=== PATIENT | female | born 1935 | race Caucasian/White ===

== ENCOUNTER 2016-07-18 20:50 | Emergency (ER) | payer OTHER ==
[2016-07-18 21:20] VITALS: BP 145/84; PULSE 76; TEMP 97.8; BMI 18.7
--- NOTE | 2016-07-18 22:16 | PDOC ---
History of Present Illness - General Chief Complaint: Cold Symptoms Stated Complaint: CHEST PAIN Time Seen by Provider: 07/18/16 21:55 History Source: Patient Exam Limitations: No Limitations - History of Present Illness Initial Comments: CHIEF COMPLAINT: 80 y/o afebrile female with PMH HTN, HLD, ACS, COPD c/o congested sounding cough x 4 days. HISTORY OF PRESENT ILLNESS: The patient states she has post tussive chest discomfort which subsides after coughing spell. She states it's mostly a dry cough. She denies f/c, n/v/d, abd pain, back pain, hematuria, dysuria. She states she is always SOB at baseline because of COPD. Vital signs on arrival are notable for O2 sat of 91% on RA. REVIEW OF SYSTEMS: GENERAL/CONSTITUTIONAL: No fever/chills. No weakness. No weight change. HEAD, EYES, EARS, NOSE AND THROAT: No change in vision. No ear pain or discharge. No sore throat. CARDIOVASCULAR: +posttussive chest pain. No shortness of breath. RESPIRATORY: +congested cough. No wheezing, or hemoptysis. GASTROINTESTINAL: See history of present illness. GENITOURINARY: No dysuria, frequency, or change in urination. MUSCULOSKELETAL: No joint or muscle swelling or pain. No neck or back pain. SKIN: No rash or easy bruising. NEUROLOGIC: No headache, vertigo, loss of consciousness, or loss of sensation. PHYSICAL EXAM: GENERAL: The patient is awake, alert, and fully oriented, in no acute distress. She has an intermittent congested sounding cough. HEAD: Normal with no signs of trauma. ENT: Pupils equal, round and reactive to light, extraocular movements intact, sclera anicteric, conjunctiva clear. Neck supple. LUNGS: Clear to auscultation bilaterally. Normal excursion. No respiratory distress or use of accessory muscles. CV: RRR, S1/S2, no MRG. Cap refill < 2 sec. ABDOMEN: Soft, non-distended, non-tender even to deep palpation, no hepatomegaly or splenomegaly, no masses. EXTREMITIES: Normal range of motion, no edema. NEUROLOGICAL: Normal speech, normal gait. CN II-XII grossly intact. PSYCH: Normal mood, normal affect. SKIN: Warm, dry, normal turgor, no rashes or lesions noted. Past History - Past Medical History Allergies/Adverse Reactions: Allergies Allergy/AdvReac Type Severity Reaction Status Date / Time No Known Allergies Allergy Verified 07/18/16 21:16 Home Medications: Ambulatory Orders Aspirin [ASA -] 81 mg PO DAILY 07/18/16 Clopidogrel Bisulfate [Plavix -] 75 mg PO DAILY 07/18/16 Metoprolol Tartrate 25 mg PO BID 07/18/16 Rosuvastatin Calcium [Crestor] 20 mg PO DAILY 07/18/16 COPD: Yes HTN: Yes Hypercholesterolemia: Yes - Surgical History Cardiac Surgery: Yes (2 stents) - Psycho/Social/Smoking Cessation Hx Suicidal Ideation: No Smoking History: Former smoker Have you smoked in the past 12 months: No Information on smoking cessation initiated: No *Physical Exam - Vital Signs Last Vital Signs Temp Pulse Resp BP Pulse Ox 97.8 F 76 18 145/84 91 L 07/18/16 21:17 07/18/16 21:17 07/18/16 21:17 07/18/16 21:17 07/18/16 21:17 Heart Score/ECG Review - ECG Intrepretation Comment:: Twelve-lead EKG was performed and reviewed by me. There is normal sinus rhythm with a normal rate. The axis is normal. The intervals are normal. Flipped inferior T's Impression: Abnormal twelve-lead EKG ED Treatment Course - LABORATORY CBC & Chemistry Diagram: 07/18/16 23:51 07/18/16 23:51 Medical Decision Making - Medical Decision Making A/P: 80 y/o afebrile female with congested cough x [address] Stein had just ordered a chest CT as an outpatient. Plan is as follows: 1. Labs 2. EKG 3. Chest CT Chest CT Impression: Moderately severe centrilobular emphysema with scarring noted in the right apex and right upper lobe. Labs unremarkable. Informed the patient of her results. She states she feels good and wants to go home. Instructed her to f/u with Dr. Stein and return to the ER with any worsening or concerning symptoms The patient verbalizes understanding of all instructions, has no further questions and is awaiting discharge. *DC/Admit/Observation/Transfer Diagnosis at time of Disposition: Cough - Discharge Dispostion Disposition: HOME Condition at time of disposition: Good - Referrals Referrals: Mary Beth Stein [Primary Care Provider] - Call tomorrow - Patient Instructions Printed Discharge Instructions: DI for Cough -- Adult Additional Instructions: Discharge Instructions: -All of your labs and Cat Scan of your chest were normal. -Take your inhalers as prescribed by Dr. Stein -Return to the ER with any worsening or concerning symptoms
[2016-07-19 00:05] LABS: BASOPHIL 0.4 % (0-2.0); EOSINOPHIL 0.1 % (0-4.5); MCH 29.7 pg (25.7-33.7); MCHC 33.1 g/dl (32.0-36.0); MEAN CELL VOLUME 89.7 fl (80-96); MEAN PLT VOLUME 11.7 fl (7.5-11.1); NEUTROPHILS 90.7 % (42.8-82.8); PLATELET COUNT 120 K/MM3 (134-434); RDW 14.8 % (11.6-15.6); WHITE BLOOD COUNT 5.5 K/mm3 (4.0-10.0)
[2016-07-19 00:35] LABS: ALBUMIN 4.3 g/dl (3.4-5.0); ANION GAP 11 (8-16); BILIRUBIN,TOTAL 0.6 mg/dL (0.2-1.0); CALCIUM 9.2 mg/dL (8.5-10.1); CO2 29 mmol/L (21-32); CREATININE 0.9 mg/dL (0.55-1.02); GLUCOSE,RANDOM 106 mg/dL (74-106); SGOT/AST 40 U/L (15-37); SGPT/ALT 27 U/L (12-78); TOT PROT 7.5 g/dl (6.4-8.2)
[2016-07-19 00:37] LABS: ALK PHOS 76 U/L (45-117); TROPONIN I < 0.02 ng/ml (0.00-0.05)
--- NOTE | 2016-07-20 17:00 | EKG ---
Test Reason : Blood Pressure : / mmHG Vent. Rate : 078 BPM Atrial Rate : 078 BPM P-R Int : 110 ms QRS Dur : 088 ms QT Int : 386 ms P-R-T Axes : 084 068 -23 degrees QTc Int : 440 ms POOR DATA QUALITY, INTERPRETATION MAY BE ADVERSELY AFFECTED SINUS RHYTHM WITH SHORT CO ABNORMAL ECG WHEN COMPARED WITH ECG OF 25-OCT-2006 12:49, ST NOW DEPRESSED IN INFERIOR LEADS ST LESS DEPRESSED IN LATERAL LEADS T WAVE INVERSION NOW EVIDENT IN INFERIOR LEADS T WAVE INVERSION NO LONGER EVIDENT IN LATERAL LEADS Confirmed by HERNANDEZ EASLEY MD ([id number]) on 07/20/2016 5:00:30 PM Referred By: Confirmed By:HERNANDEZ EASLEY MD
== END 2016-07-19 01:23 | disposition home or self-care (01) ==
LOC: JER 20:50
DX: R05 Cough (principal); I10 Essential (primary) hypertension; E78.5 Hyperlipidemia, unspecified; J44.9 Chronic obstructive pulmonary disease, unspecified; Z95.5 Presence of coronary angioplasty implant and graft; Z87.891 Personal history of nicotine dependence; Z79.82 Long term (current) use of aspirin
CPT/HCPCS: 36415; 71250-TC; 80053; 82550; 84484; 85025; 93005; 93010; 99281-25

== ENCOUNTER 2018-04-14 16:41 | Emergency (ER) | payer OTHER ==
[2018-04-14 16:54] VITALS: BP 140/83; PULSE 74; TEMP 97.5; BMI 16.7
--- NOTE | 2018-04-14 18:01 | PDOC ---
History of Present Illness - General Chief Complaint: Injury Stated Complaint: RIGHT HAND INJURY Time Seen by Provider: 04/14/18 17:18 - History of Present Illness Initial Comments: 04/14/18 18:01 CHIEF COMPLAINT: hand injury HISTORY OF PRESENT ILLNESS: 82 yo F with hx of PMH HTN, HLD, ACS, COPD presents to fast track with injury to R hand. Patient and grandson report that she was "getting out of an [employer] and accidentally banged the back of her hand against the car, and we didn't even realize she had a big bruise until we got to my Mom' s place and she asked what happened." Patient denies any current pain but reports that she is on Plavix and aspirin. No recent travel or sick contacts. PAST MEDICAL HISTORY: as per HPI FAMILY HISTORY: Denies SOCIAL HISTORY: Denies tobacco, alcohol, illicit drug use. SURGICAL HISTORY: Denies ALLERGIES: No known drug allergies REVIEW OF SYSTEMS General/Constitutional: Denies fever or chills. Denies weakness, weight change. HEENT: Denies change in vision. Denies ear pain or discharge. Denies sore throat. Cardiovascular: Denies chest pain or shortness of breath. Respiratory: Denies cough, wheezing, or hemoptysis. Gastrointestinal: Denies nausea, vomiting, diarrhea or constipation. Denies rectal bleeding. Genitourinary: Denies dysuria, frequency, or change in urination. Musculoskeletal: Denies joint or muscle swelling or pain. Denies neck or back pain. Skin and breasts: Bruise to R hand. Denies rash or easy bruising. Neurologic: Denies headache, vertigo, loss of consciousness, or loss of sensation. PHYSICAL EXAM General Appearance: Well-appearing, appropriately dressed. No apparent distress , no intoxication. HEENT: EOMI, PERRLA, normal ENT inspection, normal voice, TMs normal, pharynx normal. No conjunctival pallor. No photophobia, scleral icterus. Respiratory/Chest: Lungs CTAB. No shortness of breath, chest tenderness, respiratory distress, accessory muscle use. No crackles, rales, rhonchi, stridor , wheezing, dullness Cardiovascular: RRR. S1, S2. No JVD, murmur, bradycardia, tachycardia. Vascular Pulses: Dorsalis-Pedis (R): 2+, Dorsalis-Pedis (L): 2+ Gastrointestinal/Abdominal: Normal bowel sounds. Abdomen soft, non-distended. No tenderness or rebound tenderness. No organomegaly, pulsatile mass, guarding , hernia, hepatomegaly, splenomegaly. Musculoskeletal/Extremities: Normal inspection. FROM of all extremities, normal capillary refill. Pelvis Stable. No CVA tenderness. No tenderness to extremities, pedal edema, swelling, erythema or deformity. Integumentary: 3cm x 3 cm hematoma to dorsal aspect of R hand, no bleeding, no TTP, full ROM. Appropriate color, dry, warm. No cyanosis, erythema, jaundice or rash Neurologic: assistant signal maintainer II-XII intact. Fully oriented, alert. Appropriate mood/affect. Motor strength 5/5. No appreciable EOM palsy, facial droop or sensory deficit. 04/14/18 19:41 Past History - Past Medical History Allergies/Adverse Reactions: Allergies Allergy/AdvReac Type Severity Reaction Status Date / Time No Known Allergies Allergy Verified 04/14/18 16:54 Home Medications: Ambulatory Orders Aspirin [ASA -] 81 mg PO DAILY 07/18/16 Clopidogrel Bisulfate [Plavix -] 75 mg PO DAILY 07/18/16 Metoprolol Tartrate 25 mg PO BID 07/18/16 Rosuvastatin Calcium [Crestor] 20 mg PO DAILY 07/18/16 Cardiac Disorders: Yes (mi x 2) COPD: Yes HTN: Yes Hypercholesterolemia: Yes - Surgical History Cardiac Surgery: Yes (2 stents) - Suicide/Smoking/Psychosocial Hx Smoking History: Former smoker Have you smoked in the past 12 months: No Information on smoking cessation initiated: No *Physical Exam - Vital Signs Last Vital Signs Temp Pulse Resp BP Pulse Ox 97.5 F L 74 18 140/83 99 04/14/18 16:49 04/14/18 16:49 04/14/18 16:49 04/14/18 16:49 04/14/18 16:49 ED Treatment Course - RADIOLOGY Radiology Studies Ordered: Category Date Time Status HAND- RIGHT [RAD] Stat Radiology 04/14/18 17:39 Taken Medical Decision Making - Medical Decision Making 04/14/18 18:04 82 yo F with hx of PMH HTN, HLD, ACS, COPD presents to fast track with injury to R hand. -hand x-ray *DC/Admit/Observation/Transfer Diagnosis at time of Disposition: Hematoma - Discharge Dispostion Disposition: HOME Condition at time of disposition: Stable Decision to Admit order: No - Referrals Referrals: Mary Beth Stein [Primary Care Provider] - - Patient Instructions Printed Discharge Instructions: DI for Hematoma (Bruise) Additional Instructions: Please monitor the area of injury for the next 24 hours. If the hematoma gets larger or develops any redness, warmth, or pain, please return to the ER. Otherwise follow up with Dr. Stein within the next week for continued monitoring. - Post Discharge Activity
--- NOTE | 2018-04-15 13:23 | PDOC ---
Patient Follow-up (Call Back) - Post ED Follow - Up Condition at time of discharge: Stable Disposition at time of original discharge: HOME Reason for Call Back: Radiology (dist radius fracture , most likely old , if tender then may be acutely fractured) - Disposition Additional Instructions/Notes: called patient, no answer.
== END 2018-04-14 18:54 | disposition home or self-care (01) ==
LOC: JERFT 16:41
DX: S60.221A Contusion of right hand, initial encounter (principal); V48.4XXA Person boarding or alighting a car injured in noncollision transport accident, initial encounter; Y92.488 Other paved roadways as the place of occurrence of the external cause; Y93.89 Activity, other specified; Y99.8 Other external cause status
CPT/HCPCS: 73130-TC-RT-FY; 99281-25

== ENCOUNTER 2018-04-19 14:07 | Inpatient (IN) | payer OTHER ==
--- NOTE | 2018-04-19 14:26 | PDOC ---
Rapid Medical Evaluation Chief Complaint: Shortness of Breath Time Seen by Provider: 04/19/18 14:13 Medical Evaluation: Allergies Allergy/AdvReac Type Severity Reaction Status Date / Time No Known Allergies Allergy Verified 04/19/18 14:12 Vital Signs Temp Pulse Resp BP Pulse Ox 97.2 F L 83 28 H 204/79 H 95 04/19/18 14:12 04/19/18 14:12 04/19/18 14:12 04/19/18 14:12 04/19/18 14:12 04/19/18 14:23 I have performed a brief in-person evaluation of this patient. The patient presents with a chief complaint of: Patient sent in by PCP for possible admission due to failed outpatient treatment for suspected pneumonia with symptoms of persistent cough, SOB and low O2 sat Pertinent physical exam findings: lungs CTA b/l. mild decreased breathe sound I have ordered the following: CXR, CBC/CMP/ EKG The patient will proceed to the ED for further evaluation. Discharge Disposition - Diagnosis Cough - Referrals - Patient Instructions - Post Discharge Activity
[2018-04-19] MEDS ORDERED: ALBUTEROL SO4 2.5/IPRATROPIUM 0.5 INH SOL 3 ML VIAL.NEB. NEB ONE ×3 (16:19→17:29)
[2018-04-19] MEDS ORDERED: methylPREDNISolone NA SUCC 125 MG/2 ML VIAL IVPB ONE (16:19)
[2018-04-19] MEDS ORDERED: MAGNESIUM SULF 50% (8.12 MEQ/2 ML-1 GM VIAL) IVPB ONE (16:19)
--- NOTE | 2018-04-19 16:23 | PDOC ---
History of Present Illness - History of Present Illness Initial Comments: 04/19/18 16:28 The patient is a 82 year old female, accompanied by son, with a significant PMH of hypertension, hyperlipidemia, ACS s/p myocardial infarction x 2, COPD, who presents to the emergency department with 1.5 weeks of worsening shortness of breath and productive cough with yellow-clear sputum. The patient states that 3 weeks ago she was started on Z-Farhad antibiotics for cold-like symptoms by Dr. Mary Beth Stein. The patient reports initial relief of her symptoms. However, she states since finishing the antibiotics she has had worsening shortness of breath on exertion and has a persistent productive cough with yellow/clear sputum. The patient states she has used inhalers at home for the shortness of breath with mild relief. The patient states she received her flu shot earlier today. The patient denies chest pain, headache and dizziness. Denies fever, chills, nausea, vomit, diarrhea and constipation. Denies dysuria, frequency, urgency and hematuria. Allergies: NKA Social history: Former smoker PCP: Dr Mary Beth Stein <Adin Mata - Last Filed: 04/19/18 16:36> - General History Source: Patient, Family Exam Limitations: No Limitations <Figueroa Spivey - Last Filed: 04/19/18 17:49> - General Chief Complaint: Shortness of Breath Stated Complaint: SOB (PCP SENT) Time Seen by Provider: 04/19/18 14:13 Past History <Adin Mata - Last Filed: 04/19/18 16:36> - Past Medical History Cardiac Disorders: Yes (mi x 2) COPD: Yes HTN: Yes Hypercholesterolemia: Yes - Surgical History Cardiac Surgery: Yes (2 stents) - Immunization History Immunization Up to Date: Yes - Suicide/Smoking/Psychosocial Hx Smoking History: Former smoker Have you smoked in the past 12 months: No If you are a former smoker, when did you quit?: 11 years ago Information on smoking cessation initiated: No Hx Alcohol Use: No Drug/Substance Use Hx: No <Figueroa Spivey - Last Filed: 04/19/18 17:49> - Past Medical History Allergies/Adverse Reactions: Allergies Allergy/AdvReac Type Severity Reaction Status Date / Time No Known Allergies Allergy Verified 04/19/18 14:12 Home Medications: Ambulatory Orders Aspirin [ASA -] 81 mg PO DAILY 07/18/16 Clopidogrel Bisulfate [Plavix -] 75 mg PO DAILY 07/18/16 Metoprolol Tartrate 25 mg PO BID 07/18/16 Rosuvastatin Calcium [Crestor] 20 mg PO DAILY 07/18/16 Review of Systems - Review of Systems Comments:: 04/19/18 16:28 GENERAL/CONSTITUTIONAL: No fever or chills. No weakness. HEAD, EYES, EARS, NOSE AND THROAT: No change in vision. No ear pain or discharge. No sore throat. CARDIOVASCULAR: (+) Shortness of breath. No chest pain. RESPIRATORY: (+) Productive cough with yellow-clear sputum. No wheezing, or hemoptysis. GASTROINTESTINAL: No nausea, vomiting, diarrhea or constipation. GENITOURINARY: No dysuria, frequency, or change in urination. MUSCULOSKELETAL: No joint or muscle swelling or pain. No neck or back pain. SKIN: No rash NEUROLOGIC: No headache, vertigo, loss of consciousness, or change in strength/ sensation. ENDOCRINE: No increased thirst. No abnormal weight change. HEMATOLOGIC/LYMPHATIC: No anemia, easy bleeding, or history of blood clots. ALLERGIC/IMMUNOLOGIC: No hives or skin allergy. <Adin Mata - Last Filed: 04/19/18 16:36> *Physical Exam - Vital Signs Last Vital Signs Temp Pulse Resp BP Pulse Ox 97.2 F L 83 28 H 204/79 H 95 04/19/18 14:12 04/19/18 14:12 04/19/18 14:12 04/19/18 14:12 04/19/18 14:12 - Physical Exam Comments: 04/19/18 16:29 GENERAL: Awake, alert, and fully oriented, in no acute distress HEAD: No signs of trauma EYES: PERRLA, EOMI, sclera anicteric, conjunctiva clear ENT: Auricles normal inspection, hearing grossly normal, nares patent, oropharynx clear without exudates. Moist mucosa NECK: Normal ROM, supple, no lymphadenopathy, JVD, or masses LUNGS: (+) Tight breath sounds bilaterally. HEART: Regular rate and rhythm, normal S1 and S2, no murmurs, rubs or gallops ABDOMEN: Soft, nontender, normoactive bowel sounds. No guarding, no rebound. No masses EXTREMITIES: Normal range of motion, no edema. No clubbing or cyanosis. No cords, erythema, or tenderness NEUROLOGICAL: Cranial nerves II through XII intact. Normal speech. SKIN: Warm, Dry, normal turgor, no rashes or lesions noted. <Adin Mata - Last Filed: 04/19/18 16:36> - Vital Signs Last Vital Signs Temp Pulse Resp BP Pulse Ox 97.2 F L 83 28 H 204/79 H 95 04/19/18 14:12 04/19/18 14:12 04/19/18 14:12 04/19/18 14:12 04/19/18 14:12 <Figueroa Spivey - Last Filed: 04/19/18 17:49> Heart Score/ECG Review #1 ECG reviewed & interpreted by me at: 17:00 04/19/18 17:10 NSR 83, TWI III, aVF, no std/dustin, T wave flat V6, QTC 444 msec <Figueroa Spivey - Last Filed: 04/19/18 17:49> ED Treatment Course - LABORATORY CBC & Chemistry Diagram: 04/19/18 16:35 04/19/18 14:17 - RADIOLOGY Radiology Studies Ordered: Category Date Time Status CHEST X-RAY PORTABLE* [RAD] Stat Radiology 04/19/18 16:18 Ordered <Figueroa Spivey - Last Filed: 04/19/18 17:49> Medical Decision Making - Medical Decision Making 04/19/18 16:20 A portion of this note was written by my scribe, under my supervision. Vital Signs Temp Pulse Resp BP Pulse Ox 97.2 F L 83 28 H 204/79 H 95 04/19/18 14:12 04/19/18 14:12 04/19/18 14:12 04/19/18 14:12 04/19/18 14:12 82 yo F c/ hx of HTN, HLD, ACD s/p 2 MIs, COPD, former smoker sent in by Dr. Mary Beth Stein for COPD exacerbation. Endorses 3 weeks of cough. Had taken an azithromycin pack 1.5 wks ago with some improvement. However, still with clearish productive cough. No fevers, or chills. Does endorse GAY and chest tightness on exertion. Saw Dr. Stein who sent pt to ED. On a side note, pt had an upper extremity xray recently with questionable fracture. However, the patient spoke to Dr. Stein about it today and she is aware of it. Reports that this is an old fracture. Pt likely with COPD exacerbation. Chest xray to r/o PNA. Labs including cultures. Duonebs, steroids, IV magnesium. Low threshold for antibiotics. Admit. 04/19/18 17:48 CBC, BMP 04/19/18 16:35 04/19/18 14:17 CMP Sodium 141 mmol/L (136-145) 04/19/18 14:17 Potassium 4.1 mmol/L (3.5-5.1) 04/19/18 14:17 Chloride 107 mmol/L (98-107) 04/19/18 14:17 Carbon Dioxide 28 mmol/L (21-32) 04/19/18 14:17 Anion Gap 6 MMOL/L (8-16) L 04/19/18 14:17 BUN 14 mg/dL (7-18) 04/19/18 14:17 Creatinine 0.7 mg/dL (0.55-1.3) 04/19/18 14:17 Creat Clearance w eGFR > 60 (>60) 04/19/18 14:17 Random Glucose 82 mg/dL (74-106) 04/19/18 14:17 Lactic Acid 1.2 mmol/L (0.4-2.0) 04/19/18 16:35 Calcium 9.6 mg/dL (8.5-10.1) 04/19/18 14:17 Magnesium 2.3 mg/dL (1.8-2.4) 04/19/18 16:35 Total Bilirubin 0.9 mg/dL (0.2-1) 04/19/18 14:17 AST 16 U/L (15-37) 04/19/18 14:17 ALT 21 U/L (13-61) 04/19/18 14:17 Alkaline Phosphatase 76 U/L (45-117) 04/19/18 14:17 Creatine Kinase 58 IU/L (26-192) 04/19/18 16:35 Troponin I < 0.02 ng/ml (0.00-0.05) 04/19/18 16:35 B-Natriuretic Peptide 2485.7 pg/ml (5-450) H 04/19/18 14:17 Total Protein 7.2 g/dl (6.4-8.2) 04/19/18 14:17 Albumin 4.0 g/dl (3.4-5.0) 04/19/18 14:17 Chest xray reviewed, pending official radiology read. No infiltrates on pleural effusions. Case discussed with Dr. Mary Beth Stein. Admit to tele admission. She requests baljinder and priyanka for consultation. 04/19/18 17:49 <Figueroa Spivey - Last Filed: 04/19/18 17:49> *DC/Admit/Observation/Transfer - Attestations Scribe Attestion: 04/19/18 16:35 Documentation prepared by Adin Mata, acting as medical library assistant for Figueroa Spivey MD. <Adin Mata - Last Filed: 04/19/18 16:36> - Discharge Dispostion Decision to Admit order: Yes <Figueroa Spivey - Last Filed: 04/19/18 17:49> Diagnosis at time of Disposition: Cough COPD (chronic obstructive pulmonary disease) Qualifiers: COPD type: unspecified COPD Qualified Code(s): J44.9 - Chronic obstructive pulmonary disease, unspecified - Discharge Dispostion Condition at time of disposition: Stable - Referrals Referrals: Mary Beth Stein [Primary Care Provider] - - Patient Instructions - Post Discharge Activity
[2018-04-19 16:53] LABS: BASO % 0.2 % (0-2.0); EOS % 0.2 % (0-4.5); HEMATOCRIT 42.2 % (32.4-45.2); HEMOGLOBIN 13.4 GM/dL (10.7-15.3); LYMPH % 2.1 % (8-40); MCHC 31.8 g/dl (32.0-36.0); MEAN CELL VOLUME 91.3 fl (80-96); MEAN PLT VOLUME 10.9 fl (7.5-11.1); MONO % 3.8 % (3.8-10.2); NEUT % 93.7 % (42.8-82.8); PLATELET COUNT 116 K/MM3 (134-434); RBC 4.62 M/mm3 (3.60-5.2); RDW 15.9 % (11.6-15.6); WHITE BLOOD COUNT 12.1 K/mm3 (4.0-10.0)
[2018-04-19 16:57] LABS: VENOUS PC02 47.6 mmHg (38-52); VENOUS PH 7.38 (7.32-7.42)
[2018-04-19 17:11] LABS: INR 1.03 (0.83-1.09); PROTHROMBIN TIME (PATIENT) 12.2 SEC (9.7-13.0)
[2018-04-19] MEDS ORDERED: methylPREDNISolone NA SUCC 125 MG/2 ML VIAL ONE (17:11)
[2018-04-19] MEDS ORDERED: MAGNESIUM 1GM/D5W - 2 GM/200 ML IVPB IVPB ONE (17:11)
[2018-04-19 17:13] LABS: ACTIVATED PTT 27.5 SECONDS (25.2-36.5)
[2018-04-19 17:22] LABS: MAGNESIUM 2.3 mg/dL (1.8-2.4)
[2018-04-19 17:34] LABS: ALK PHOS 76 U/L (45-117); ANION GAP 6 MMOL/L (8-16); BILIRUBIN,TOTAL 0.9 mg/dL (0.2-1); BLOOD UREA NITROGEN 14 mg/dL (7-18); CALCIUM 9.6 mg/dL (8.5-10.1); CHLORIDE 107 mmol/L (98-107); CO2 28 mmol/L (21-32); CREATININE 0.7 mg/dL (0.55-1.3); GLUCOSE,RANDOM 82 mg/dL (74-106); N-TERMINAL BNP 2485.7 pg/ml (5-450); POTASSIUM 4.1 mmol/L (3.5-5.1); SGOT/AST 16 U/L (15-37); SGPT/ALT 21 U/L (13-61); SODIUM 141 mmol/L (136-145); TOT PROT 7.2 g/dl (6.4-8.2)
[2018-04-19 18:45] LABS: URINE APPEARANCE CLEAR; URINE BILIRUBIN NEGATIVE (<2.0 mg/dL); URINE COLOR LTYELLOW; URINE GLUCOSE (UA) NEGATIVE (NEGATIVE); URINE KETONE TRACE (NEGATIVE); URINE LEUK ESTERASE TRACE (NEGATIVE); URINE NITRITE NEGATIVE (NEGATIVE); URINE PROTEIN 1+ (NEGATIVE); URINE UROBILINOGEN NEGATIVE mg/dL (0.2-1.0)
[2018-04-19 18:59] LABS: PLATELET ESTIMATE ADEQUATE
[2018-04-19] MEDS ORDERED: guaiFENesin 200 MG/10 ML 10 ML UNIT-DOSE CUPS PO PRN (22:30)
[2018-04-19] MEDS ORDERED: ACETAMINOPHEN 325 MG TABLET (FP) PO PRN (22:30)
[2018-04-20] MEDS: methylPREDNISolone NA SUCC 125 MG/2 ML VIAL IVPB SCH ×3 (01:39→17:14)
[2018-04-20 06:30] LABS: HEMATOCRIT 36.1 % (32.4-45.2); HEMOGLOBIN 11.6 GM/dL (10.7-15.3); LYMPH % 2.5 % (8-40); MCH 29.6 pg (25.7-33.7); MCHC 32.2 g/dl (32.0-36.0); MEAN PLT VOLUME 11.1 fl (7.5-11.1); MONO % 0.7 % (3.8-10.2); NEUT % 96.8 % (42.8-82.8); PLATELET COUNT 91 K/MM3 (134-434); RBC 3.93 M/mm3 (3.60-5.2); RDW 15.9 % (11.6-15.6); WHITE BLOOD COUNT 5.5 K/mm3 (4.0-10.0)
[2018-04-20] MEDS: INSULIN SLIDING SCALE (NOVOLOG) 1 VIAL SQ SCH ×4 (06:41→21:53)
[2018-04-20 07:36] LABS: ALBUMIN 3.3 g/dl (3.4-5.0); ALK PHOS 63 U/L (45-117); ANION GAP 9 MMOL/L (8-16); BLOOD UREA NITROGEN 17 mg/dL (7-18); CALCIUM 8.4 mg/dL (8.5-10.1); CHLORIDE 105 mmol/L (98-107); CO2 27 mmol/L (21-32); CREATININE 0.6 mg/dL (0.55-1.3); GLUCOSE,RANDOM 112 mg/dL (74-106); POTASSIUM 4.3 mmol/L (3.5-5.1); SGOT/AST 14 U/L (15-37); SGPT/ALT 15 U/L (13-61); SODIUM 141 mmol/L (136-145); TOT PROT 6.1 g/dl (6.4-8.2)
--- NOTE | 2018-04-20 08:44 | HP ---
Admitting History and Physical - Primary Care Physician PCP: Mary Beth Stein S - Admission Chief Complaint: SOB, cough History of Present Illness: The patient is a 82 year old female, accompanied by son, with a significant PMH of hypertension, hyperlipidemia, ACS s/p myocardial infarction x 2, COPD, who presents to the emergency department with 1-2 weeks of worsening shortness of breath and productive cough with yellow-clear sputum. The patient 3 weeks ago was started on Z-Farhad antibiotics for cold-like symptoms. The patient reports initial relief of her symptoms. However, she states since finishing the antibiotics she has had worsening shortness of breath on exertion and has a persistent productive cough with yellow/clear sputum. The patient states she has used inhalers at home for the shortness of breath with mild relief. I saw pt in office yesterday and advised her to go to ER for further w/u and treatment but she was very reluctant to go to H, however she became SOB walking toward the pharmacy (in the same building with my office) and she changed her mind and decided to go to H ER> accompanied by her grand son. The patient received her flu shot yesterday in my office. Of note she has long standing h/o smoking, stopped about 10 years ago (but after stopping she was a passive smoker b/o her who smoked a lot and who 5 years ago). I advised her many times over the years to go for pulmonary eval / COPD tx, cardiology f/u ASHD and to have chest CT for early lung CA screening (scripts given multiple times) but she did not go. History Source: Patient Limitations to Obtaining History: No Limitations - Past Medical History Cardiovascular: Yes: CAD, CHF, HTN Pulmonary: Yes: COPD - Smoking History Smoking history: Former smoker Have you smoked in the past 12 months: No If you are a former smoker, when did you quit?: 11 years ago - Alcohol/Substance Use Hx Alcohol Use: No History of Substance Use: reports: None - Social History Usual Living Arrangement: Yes: Alone ADL: Independent History of Recent Travel: No Home Medications - Allergies Allergies/Adverse Reactions: Allergies Allergy/AdvReac Type Severity Reaction Status Date / Time No Known Allergies Allergy Verified 04/19/18 14:12 - Home Medications Home Medications: Ambulatory Orders Aspirin [ASA -] 81 mg PO DAILY 07/18/16 Clopidogrel Bisulfate [Plavix -] 75 mg PO DAILY 07/18/16 Metoprolol Tartrate 25 mg PO BID 07/18/16 Rosuvastatin Calcium [Crestor] 20 mg PO HS 07/18/16 Family Disease History - Family Disease History Family History: Unremarkable Review of Systems - Review of Systems Constitutional: reports: Loss of Appetite, Unintentional Wgt. Loss. denies: Chills, Fever Eyes: denies: Blind Spots, Blurred Vision, Double Vision HENT: denies: Epistaxis Neck: denies: Stiffness, Tenderness Cardiovascular: reports: Shortness of Breath. denies: Chest Pain Respiratory: reports: Cough, SOB, SOB on Exertion, Wheezing. denies: Hemoptysis Gastrointestinal: denies: Abdominal Pain, Constipation, Diarrhea, Rectal Bleeding, Vomiting Genitourinary: denies: Dysuria, Flank Pain Musculoskeletal: denies: Back Pain, Joint Pain Integumentary: denies: Erythema, Rash, Wound Neurological: denies: Change in LOC, Change in Speech, Confusion, Dizziness, Headache, Seizure, Syncope Hematology/Lymphatic: denies: Easily Bruised, Excessive Bleeding Psychiatric: reports: Anxiety. denies: Altered Sleep Pattern, Depression, Suicidal Physical Examination Vital Signs: Vital Signs Temperature 98.4 F 04/20/18 06:52 Pulse Rate 70 04/20/18 06:52 Respiratory Rate 20 04/20/18 06:52 Blood Pressure 133/62 04/20/18 06:52 O2 Sat by Pulse Oximetry (%) 94 L 04/19/18 21:00 Constitutional: Yes: Anxious, Mild Distress Eyes: Yes: Conjunctiva Clear HENT: Yes: Atraumatic Neck: Yes: Supple Cardiovascular: Yes: Regular Rate and Rhythm Respiratory: Yes: Diminished, Rales, Rhonchi, Wheezes Gastrointestinal: Yes: Soft. No: Distention, Tenderness Renal/: No: CVA Tenderness - Left, CVA Tenderness - Right Musculoskeletal: No: Joint Stiffness, Joint Swelling Extremities: No: Cold, Cool, Cyanosis, Deformity Edema: No Integumentary: No: Bruising, Rash, Venous Stasis Changes Neurological: Yes: WNL, Alert, Oriented ...Motor Strength: WNL Psychiatric: Yes: WNL, Alert, Oriented. No: Agitated, Suicidal Ideation Labs: CBC, BMP 04/20/18 05:30 10/20/18 05:30 Imaging - Results Chest X-ray: Report Reviewed Other: Report Reviewed Assessment/Plan The patient is a 82 year old female with a significant PMH of hypertension, hyperlipidemia, ACS s/p myocardial infarction x 2, COPD, who presents to the emergency department with 2 weeks of worsening shortness of breath and productive cough with yellow-clear sputum. S/P recent treatment with po antibiotics and po steroids initially felt better then symptoms recurred. acute on chronic COPD exac; acute bronchitis / pneumonia admit; IV steroids; nebs, O2 IV antibiotics pulmonary and cardiology eval DVT pfx falls PFX chest CT might need home O2 d/w pt and grand son all the above
[2018-04-20] MEDS: HEPARIN NA (PORCINE) 5,000 UNITS/ML 1ML VIAL SQ SCH ×2 (09:58→21:46)
[2018-04-20] MEDS: ASPIRIN 81 MG CHEWABLE TABLETS PO SCH (09:58)
[2018-04-20] MEDS: RANITIDINE HCL 150 MG TABLET (FP) PO SCH (09:58)
[2018-04-20] MEDS: CLOPIDOGREL BISULFATE 75 MG TABLET (FP) PO SCH (09:58)
[2018-04-20] MEDS ORDERED: METOPROLOL TARTRATE 25 MG TABLET (FP) PO SCH (10:00)
--- NOTE | 2018-04-20 12:07 | PN ---
Progress Note (short form) - Note Progress Note: PULMONARY CONSULTATION DICTATED 04/20/18 IMP DYSPNEA COPD EXACERBATION ELEVATED BNP ? CHF ASHD S/P NH X 2 HTN HLD PLAN IV STEROIDS INHALED BRONCHODILATORS O2 ABX CHEST CT ECHO CHECK O2 SAT AT REST AND EXERCISE PRIOR TO DISCHARGE TO DETERMINE IF PT IS A CANDIDATE FOR HOME O2 DR CARDOSO Problem List - Problems (1) ASHD (arteriosclerotic heart disease) Code(s): I25.10 - ATHSCL HEART DISEASE OF [place] CORONARY ARTERY W/O ANG PCTRS (2) COPD (chronic obstructive pulmonary disease) Code(s): J44.9 - CHRONIC OBSTRUCTIVE PULMONARY DISEASE, UNSPECIFIED Qualifiers: COPD type: unspecified COPD Qualified Code(s): J44.9 - Chronic obstructive pulmonary disease, unspecified (3) Cough Code(s): R05 - COUGH (4) COPD exacerbation Code(s): J44.1 - CHRONIC OBSTRUCTIVE PULMONARY DISEASE W (ACUTE) EXACERBATION (5) HTN (hypertension) Code(s): I10 - ESSENTIAL (PRIMARY) HYPERTENSION (6) Elevated brain natriuretic peptide (BNP) level Code(s): R79.89 - OTHER SPECIFIED ABNORMAL FINDINGS OF BLOOD CHEMISTRY (7) Shortness of breath Code(s): R06.02 - SHORTNESS OF BREATH (8) Cough Code(s): R05 - COUGH
[2018-04-20 12:26] LABS: ANISOCYTOSIS 0; MACROCYTOSIS 0; PLATELET ESTIMATE DECREASED
[2018-04-20] MEDS: ALBUTEROL SO4 0.083% IH SOL 2.5 MG/3 ML VIAL.NEB. NEB PRN ×2 (12:47→19:16)
--- NOTE | 2018-04-20 13:00 | CONS ---
DATE OF CONSULTATION: 04/20/2018 PULMONARY CONSULTATION REFERRING PHYSICIAN: Mary Beth Stein M.D. HISTORY OF PRESENT ILLNESS: The patient is an 82-year-old white female with past medical history of COPD, ASHD, status post IN x2, hyperlipidemia, hypertension, admitted to [facility] with complaint of a 1 to 2-week history of increasing shortness of breath and cough productive of yellow sputum. The patient states that the symptoms started approximately 3 weeks ago. At the time she had a cough and chest congestion, and she was started on antibiotic therapy and prednisone, which offered initial improvement. Symptoms then started recurring again, associated with shortness of breath and dyspnea on exertion, at which time she was advised to go to the emergency room. In the ER, she was treated with inhaled bronchodilators and steroids, with a good response, and transferred up to the medical floor for further management. She denies any fever, chills, nausea, vomiting, diaphoresis. She denies hemoptysis. She denies any chest pain or palpitations. The patient has a history of tobacco use, started at age 11, quit 11 years ago. 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 She denies any history of respiratory failure in the past requesting ventilatory support. She is currently not on home O2. States that she develops dyspnea with exertion, where she has to stop before proceeding. PAST MEDICAL HISTORY: Again, includes hypertension, hyperlipidemia, ASHD, status post IN x2 and COPD. REVIEW OF SYSTEMS: Positive dyspnea, positive cough, positive chest tightness. No fever, no chills, no nausea, no vomiting, no hemoptysis, no abdominal pain. CURRENT MEDICATIONS: Include Solu-Medrol 60 mg q.8, Tylenol, Levaquin, heparin, albuterol, Lopressor, Robitussin, Zantac, Crestor, aspirin and Plavix. PHYSICAL EXAMINATION: General: The patient is an elderly white female, thin, awake, alert, mildly dyspneic but in no acute distress. Vital Signs: She is afebrile. Blood pressure 157/83, respiratory rate 20. O2 saturation is 97% on 2 L. HEENT: Normocephalic, atraumatic. Neck: Supple, without adenopathy. Heart: Regular S1, S2. Chest: Diminished breath sounds bilaterally. A few scattered bilateral wheezes. Abdomen: Soft. Bowel sounds are positive. Extremities: No cyanosis or edema. LABORATORY DATA: WBC is 5.5, hemoglobin 11.6, hematocrit 36.1, platelet count 91,000. Venous blood gas with pH 7.38, pCO2 of 47, pO2 of 27. BUN 17, creatinine 0.6. BNP 2485. RADIOLOGY: Chest x-ray with no acute infiltrates or effusions. IMPRESSION: 1. Dyspnea, most likely secondary to chronic obstructive pulmonary disease exacerbation. 2. Mild congestive heart failure as noted by elevated beta natriuretic peptide. 3. Hypertension. 4. Hyperlipidemia. 5. Atherosclerotic heart disease, status post myocardial infarction x2. PLAN: IV steroids, inhaled bronchodilators, supplemental O2. Obtain echocardiogram. Follow up chest x-rays as well as CT scan of the chest. Also check pulse oximetry at rest and post exercise prior to discharge to determine whether the patient is a candidate for home O2. SHARLA CARDOSO M.D. [id number] MTDD
[2018-04-20] MEDS: TIOTROPIUM BROMIDE 2.5 MCG (SPIRIVA) RESPIMAT INHALER IH SCH (17:13)
--- NOTE | 2018-04-20 18:04 | EKG ---
Test Reason : Blood Pressure : / mmHG Vent. Rate : 083 BPM Atrial Rate : 083 BPM P-R Int : 112 ms QRS Dur : 076 ms QT Int : 378 ms P-R-T Axes : 090 067 -61 degrees QTc Int : 444 ms POOR DATA QUALITY, INTERPRETATION MAY BE ADVERSELY AFFECTED NORMAL SINUS RHYTHM ABNORMAL ECG WHEN COMPARED WITH ECG OF 18-JUL-2016 22:42, NONSPECIFIC T WAVE ABNORMALITY, WORSE IN LATERAL LEADS Confirmed by HERNANDEZ EASLEY MD ([id number]) on 04/20/2018 6:04:12 PM Referred By: Confirmed By:HERNANDEZ EASLEY MD
[2018-04-20] MEDS: METOPROLOL TARTRATE 25 MG TABLET (FP) PO SCH (18:58)
[2018-04-20] MEDS: ROSUVASTATIN CA 20 MG TABLET (FP) PO SCH (21:55)
[2018-04-21] MEDS: methylPREDNISolone NA SUCC 125 MG/2 ML VIAL IVPB SCH (01:13)
[2018-04-21] MEDS: INSULIN SLIDING SCALE (NOVOLOG) 1 VIAL SQ SCH ×4 (06:08→21:52)
[2018-04-21 06:34] LABS: LYMPH % 1.6 % (8-40); MCH 29.2 pg (25.7-33.7); MCHC 31.6 g/dl (32.0-36.0); MEAN CELL VOLUME 92.4 fl (80-96); MEAN PLT VOLUME 11.6 fl (7.5-11.1); MONO % 1.5 % (3.8-10.2); NEUT % 96.9 % (42.8-82.8); PLATELET COUNT 110 K/MM3 (134-434); RBC 4.12 M/mm3 (3.60-5.2); WHITE BLOOD COUNT 14.2 K/mm3 (4.0-10.0)
[2018-04-21 07:06] LABS: ALBUMIN 3.3 g/dl (3.4-5.0); ALK PHOS 65 U/L (45-117); ANION GAP 7 MMOL/L (8-16); BILIRUBIN,TOTAL 0.6 mg/dL (0.2-1); BLOOD UREA NITROGEN 27 mg/dL (7-18); CALCIUM 8.9 mg/dL (8.5-10.1); CHLORIDE 104 mmol/L (98-107); CO2 29 mmol/L (21-32); CREATININE 0.7 mg/dL (0.55-1.3); GLUCOSE,RANDOM 109 mg/dL (74-106); POTASSIUM 4.5 mmol/L (3.5-5.1); SGOT/AST 23 U/L (15-37); SGPT/ALT 18 U/L (13-61); SODIUM 140 mmol/L (136-145); TOT PROT 6.1 g/dl (6.4-8.2)
[2018-04-21] MEDS: ALBUTEROL SO4 0.083% IH SOL 2.5 MG/3 ML VIAL.NEB. NEB PRN ×2 (07:37→20:37)
--- NOTE | 2018-04-21 08:42 | PN ---
Progress Note, Physician Chief Complaint: in bed NAD had increased HTN yesterday - metoprolol dose was increased today better no CP less SOB consults appreciated - Current Medication List Current Medications: Active Medications Acetaminophen (Tylenol -) 650 mg PO Q6H PRN PRN Reason: PAIN Albuterol Sulfate (Ventolin 0.083% Nebulizer Soln -) 1 amp NEB Q4H PRN PRN Reason: SHORT OF BREATH/WHEEZING Last Admin: 04/21/18 07:37 Dose: 1 amp Aspirin (Asa -) 81 mg PO DAILY [facility] Last Admin: 04/20/18 09:58 Dose: 81 mg Clopidogrel Bisulfate (Plavix -) 75 mg PO DAILY [facility] Last Admin: 04/20/18 09:58 Dose: 75 mg Guaifenesin (Robitussin -) 10 ml PO Q6H PRN PRN Reason: COUGH Heparin Sodium (Porcine) (Heparin -) 5,000 unit SQ BID [facility] Last Admin: 04/20/18 21:46 Dose: 5,000 unit Levofloxacin (Levaquin 500 Mg Premixed Ivpb -) 500 mg in 100 mls @ 100 mls/hr IVPB DAILY@0800 [facility]; Protocol Last Admin: 04/20/18 23:09 Dose: 100 mls/hr Insulin Aspart (Novolog Vial Sliding Scale -) 1 vial SQ ACHS [facility]; Protocol Last Admin: 04/21/18 06:08 Dose: Not Given Methylprednisolone Sodium Succinate (Solu-Medrol -) 40 mg IVPB Q8H-IV JOHN Metoprolol Tartrate (Lopressor -) 50 mg PO BID [facility] Last Admin: 04/20/18 18:58 Dose: 50 mg Ranitidine HCl (Zantac -) 150 mg PO DAILY [facility] Last Admin: 04/20/18 09:58 Dose: 150 mg Rosuvastatin Calcium (Crestor -) 20 mg PO HS [facility] Last Admin: 04/20/18 21:55 Dose: 20 mg Tiotropium [place] (Spiriva Respimat) 2 puff IH DAILY [facility] Last Admin: 04/20/18 17:13 Dose: 2 puff - Objective Vital Signs: Vital Signs Temperature 98 F 04/21/18 04:45 Pulse Rate 68 04/21/18 04:45 Respiratory Rate 20 04/21/18 04:45 Blood Pressure 141/58 L 04/21/18 04:45 O2 Sat by Pulse Oximetry (%) 97 04/20/18 20:24 Constitutional: Yes: No Distress, Calm Eyes: Yes: Conjunctiva Clear HENT: Yes: Atraumatic Neck: Yes: Supple Cardiovascular: Yes: Regular Rate and Rhythm Respiratory: Yes: Cough, Rales, Rhonchi, Wheezes Gastrointestinal: Yes: Soft. No: Distention, Tenderness Genitourinary: No: CVA Tenderness - Left, CVA Tenderness - Right Musculoskeletal: No: Joint Stiffness, Joint Swelling Extremities: No: Cold, Cool, Cyanosis Edema: No Integumentary: No: Rash, Venous Stasis Changes Neurological: Yes: WNL, Alert, Oriented ...Motor Strength: WNL Psychiatric: Yes: WNL, Alert, Oriented. No: Agitated, Suicidal Ideation Labs: CBC, BMP 04/21/18 05:30 04/21/18 05:30 INR, PTT INR 1.03 (0.83-1.09) 04/19/18 16:35 - ....Imaging Other: Report Reviewed Assessment/Plan The patient is a 82 year old female with a significant PMH of hypertension, hyperlipidemia, ACS s/p myocardial infarction x 2, COPD, who presents to the emergency department with 2 weeks of worsening shortness of breath and productive cough with yellow-clear sputum. S/P recent treatment with po antibiotics and po steroids initially felt better then symptoms recurred. acute on chronic COPD exac; acute bronchitis / pneumonia admit; IV steroids; nebs, O2 IV antibiotics BP control pulmonary and cardiology eval DVT pfx falls PFX chest CT might need home O2 d/w pt and staff
[2018-04-21 09:31] LABS: ACANTHOCYTES 0; ANISOCYTOSIS 0; HELMET CELLS 0; HOWELL-JOLLY BODIES 0; MACROCYTOSIS 0; OVALOCYTE 0; PLATELET ESTIMATE DECREASED; ROULEAU 0; SICKELED CELLS 0; TARGET CELLS 0; TEAR DROP CELLS 0; TOXIC GRANULATION 0
--- NOTE | 2018-04-21 10:26 | PN ---
Progress Note, Physician History of Present Illness: PULMONARY ALERT,FEELING BETTER,LESS DYSPNEIC - Current Medication List Current Medications: Active Medications Acetaminophen (Tylenol -) 650 mg PO Q6H PRN PRN Reason: PAIN Albuterol Sulfate (Ventolin 0.083% Nebulizer Soln -) 1 amp NEB Q4H PRN PRN Reason: SHORT OF BREATH/WHEEZING Last Admin: 04/21/18 07:37 Dose: 1 amp Aspirin (Asa -) 81 mg PO DAILY [facility] Last Admin: 04/20/18 09:58 Dose: 81 mg Clopidogrel Bisulfate (Plavix -) 75 mg PO DAILY [facility] Last Admin: 04/20/18 09:58 Dose: 75 mg Guaifenesin (Robitussin -) 10 ml PO Q6H PRN PRN Reason: COUGH Heparin Sodium (Porcine) (Heparin -) 5,000 unit SQ BID [facility] Last Admin: 04/20/18 21:46 Dose: 5,000 unit Levofloxacin (Levaquin 500 Mg Premixed Ivpb -) 500 mg in 100 mls @ 100 mls/hr IVPB DAILY@0800 [facility]; Protocol Last Admin: 04/20/18 23:09 Dose: 100 mls/hr Insulin Aspart (Novolog Vial Sliding Scale -) 1 vial SQ ACHS [facility]; Protocol Last Admin: 04/21/18 06:08 Dose: Not Given Methylprednisolone Sodium Succinate (Solu-Medrol -) 40 mg IVPB Q8H-IV JOHN Metoprolol Tartrate (Lopressor -) 50 mg PO BID [facility] Last Admin: 04/20/18 18:58 Dose: 50 mg Ranitidine HCl (Zantac -) 150 mg PO DAILY [facility] Last Admin: 04/20/18 09:58 Dose: 150 mg Rosuvastatin Calcium (Crestor -) 20 mg PO HS [facility] Last Admin: 04/20/18 21:55 Dose: 20 mg Tiotropium [place] (Spiriva Respimat) 2 puff IH DAILY [facility] Last Admin: 04/20/18 17:13 Dose: 2 puff - Objective Vital Signs: Vital Signs Temperature 98 F 04/21/18 04:45 Pulse Rate 68 04/21/18 04:45 Respiratory Rate 20 04/21/18 04:45 Blood Pressure 141/58 L 04/21/18 04:45 O2 Sat by Pulse Oximetry (%) 97 04/20/18 20:24 Constitutional: Yes: Calm, Thin Eyes: Yes: WNL HENT: Yes: WNL Neck: Yes: WNL Cardiovascular: Yes: Regular Rate and Rhythm, S1, S2 Respiratory: Yes: Diminished, Wheezes (FEW SCATTERED WHEEZES) Gastrointestinal: Yes: Normal Bowel Sounds, Soft Extremities: Yes: WNL Edema: No Labs: CBC, BMP 04/21/18 05:30 04/21/18 05:30 INR, PTT INR 1.03 (0.83-1.09) 04/19/18 16:35 Problem List - Problems (1) ASHD (arteriosclerotic heart disease) Code(s): I25.10 - ATHSCL HEART DISEASE OF [place] CORONARY ARTERY W/O ANG PCTRS (2) COPD (chronic obstructive pulmonary disease) Code(s): J44.9 - CHRONIC OBSTRUCTIVE PULMONARY DISEASE, UNSPECIFIED Qualifiers: COPD type: unspecified COPD Qualified Code(s): J44.9 - Chronic obstructive pulmonary disease, unspecified (3) Cough Code(s): R05 - COUGH (4) COPD exacerbation Code(s): J44.1 - CHRONIC OBSTRUCTIVE PULMONARY DISEASE W (ACUTE) EXACERBATION (5) HTN (hypertension) Code(s): I10 - ESSENTIAL (PRIMARY) HYPERTENSION (6) Elevated brain natriuretic peptide (BNP) level Code(s): R79.89 - OTHER SPECIFIED ABNORMAL FINDINGS OF BLOOD CHEMISTRY (7) Shortness of breath Code(s): R06.02 - SHORTNESS OF BREATH (8) Cough Code(s): R05 - COUGH Assessment/Plan IMP DYSPNEA IMPROVING COPD EXACERBATION ELEVATED BNP ? CHF ASHD S/P MD X 2 HTN HLD PLAN IV STEROIDS SAME DOSE INHALED BRONCHODILATORS O2 ABX CHEST CT ECHO PENDING CHECK O2 SAT AT REST AND EXERCISE PRIOR TO DISCHARGE TO DETERMINE IF PT IS A CANDIDATE FOR HOME O2 DR CARDOSO Problem List - Problems (1) ASHD (arteriosclerotic heart disease) Code(s): I25.10 - ATHSCL HEART DISEASE OF [place] CORONARY ARTERY W/O ANG PCTRS (2) COPD (chronic obstructive pulmonary disease) Code(s): J44.9 - CHRONIC OBSTRUCTIVE PULMONARY DISEASE, UNSPECIFIED Qualifiers: COPD type: unspecified COPD Qualified Code(s): J44.9 - Chronic obstructive pulmonary disease, unspecified (3) Cough Code(s): R05 - COUGH (4) COPD exacerbation Code(s): J44.1 - CHRONIC OBSTRUCTIVE PULMONARY DISEASE W (ACUTE) EXACERBATION (5) HTN (hypertension) Code(s): I10 - ESSENTIAL (PRIMARY) HYPERTENSION (6) Elevated brain natriuretic peptide (BNP) level Code(s): R79.89 - OTHER SPECIFIED ABNORMAL FINDINGS OF BLOOD CHEMISTRY (7) Shortness of breath Code(s): R06.02 - SHORTNESS OF BREATH (8) Cough Code(s): R05 - COUGH
--- NOTE | 2018-04-21 10:26 | CON.CARD ---
Cardiology Consult (text) - Consultation Consultation Note: CC: Elevated BNP HPI: 82 year old female with PMH significant for hypertension, hyperlipidemia, CAD s/ p myocardial infarction x 2, COPD admitted with COPD exacerbation, ruled out for acute coronary syndrome but found to have elevated BNP. Patient with recent PNA treated with azithromycin 3 weeks prior to admission. She had improvement of symptoms but once antibiotics were stopped, her shortness of breath and productive yellow to clear sputum. Patient also complains of shortness of breath with lying flat which she noticed 1 week prior to admission. Sleeps with hospital bed at an incline of approximately 30 degrees due to shortness of breath. Denies any lh, dizziness, chest pain, palpitations, orthopnea, PND or NICCI. 100% compliant with cardiac medications. Past Medical/Surgical Hx of relevance CAD s/p SC on aspirin and plavix HTN HL Family Hx: NC Social History: denies alcohol, tobacco, or drugs. Physical Exam Vital Signs - 24 hr 04/20/18 04/20/18 04/20/18 14:00 17:00 18:00 Temperature 98.6 F 97.9 F Pulse Rate 97 H 121 H 114 H Respiratory 20 19 20 Rate Blood Pressure 163/77 217/91 H 194/94 H O2 Sat by Pulse Oximetry (%) 04/20/18 04/20/18 04/21/18 20:22 20:24 01:02 Temperature 97.7 F 97 F L Pulse Rate 90 64 Respiratory 21 H 20 Rate Blood Pressure 161/73 136/60 O2 Sat by Pulse 97 Oximetry (%) 04/21/18 04:45 Temperature 98 F Pulse Rate 68 Respiratory 20 Rate Blood Pressure 141/58 L O2 Sat by Pulse Oximetry (%) Gen: well appearing elderly female sitting upright in NAD HEENT: NC/AT. OP Clear, MMM Cardiac: S1/S2, 2/6 systolic murmur loudest at LSB, JVP 10cm. Pulm: decreased breath sounds at bases Ext: WWP. No edema. Labs: reviewed. Troponin negative X2 BNP 2485 LDL 60 ECG 04/20: normal sinus rhythm, inferior q waves, LVH with nonspecific ST-T wave changes. A/P: 82 year old female with PMH significant for hypertension, hyperlipidemia, CAD s/ p myocardial infarction x 2, COPD admitted with COPD exacerbation, ruled out for acute coronary syndrome but found to have elevated BNP. Patient without history of heart failure, will obtain echocardiogram to assess for lv function and diastolic dysfunction. ACS ruled out. Patient with no peripheral edema but JVP 10cm. #CAD Workup: --ECG NSR, inferior q waves, LVH with nonspecific ST-T changes --trop negative X2 --BNP 2485 Treatment: --continue aspirin 81mg, rosuvastatin 20mg, plavix 75mg, metoprolol tartrate 50mg BID (consider consolidation to succinate on discharge) --start lasix 10mg #Elevated BNP --echocardiogram pending --start lasix 10mg Will need to obtain prior cardiac history records along with last ischemic evaluation. Ron Lucas MD
[2018-04-21] MEDS: METOPROLOL TARTRATE 25 MG TABLET (FP) PO SCH ×2 (10:38→21:20)
[2018-04-21] MEDS: ASPIRIN 81 MG CHEWABLE TABLETS PO SCH (10:38)
[2018-04-21] MEDS: HEPARIN NA (PORCINE) 5,000 UNITS/ML 1ML VIAL SQ SCH ×2 (10:38→21:20)
[2018-04-21] MEDS: CLOPIDOGREL BISULFATE 75 MG TABLET (FP) PO SCH (10:38)
[2018-04-21] MEDS: RANITIDINE HCL 150 MG TABLET (FP) PO SCH (10:38)
[2018-04-21] MEDS: TIOTROPIUM BROMIDE 2.5 MCG (SPIRIVA) RESPIMAT INHALER IH SCH (10:38)
[2018-04-21] MEDS: methylPREDNISolone NA SUCC 40 MG/1 ML VIAL IVPB SCH ×2 (10:38→18:02)
[2018-04-21] MEDS ORDERED: FUROSEMIDE 20 MG TABLET (FP) PO ONE (11:50)
[2018-04-21] MEDS: ROSUVASTATIN CA 20 MG TABLET (FP) PO SCH (21:20)
[2018-04-22] MEDS: methylPREDNISolone NA SUCC 40 MG/1 ML VIAL IVPB SCH ×3 (01:08→21:46)
[2018-04-22] MEDS: INSULIN SLIDING SCALE (NOVOLOG) 1 VIAL SQ SCH ×4 (06:01→21:46)
[2018-04-22 06:02] LABS: BASO % 0.1 % (0-2.0); HEMATOCRIT 37.2 % (32.4-45.2); HEMOGLOBIN 11.9 GM/dL (10.7-15.3); LYMPH % 1.6 % (8-40); MCH 29.4 pg (25.7-33.7); MEAN CELL VOLUME 91.8 fl (80-96); MEAN PLT VOLUME 11.4 fl (7.5-11.1); MONO % 2.5 % (3.8-10.2); NEUT % 95.8 % (42.8-82.8); PLATELET COUNT 95 K/MM3 (134-434); RBC 4.05 M/mm3 (3.60-5.2); WHITE BLOOD COUNT 12.2 K/mm3 (4.0-10.0)
[2018-04-22 07:37] LABS: ANION GAP 7 MMOL/L (8-16); BLOOD UREA NITROGEN 33 mg/dL (7-18); CALCIUM 8.8 mg/dL (8.5-10.1); CHLORIDE 106 mmol/L (98-107); CO2 31 mmol/L (21-32); CREATININE 0.8 mg/dL (0.55-1.3); GLUCOSE,RANDOM 125 mg/dL (74-106); POTASSIUM 4.7 mmol/L (3.5-5.1); SODIUM 144 mmol/L (136-145)
--- NOTE | 2018-04-22 08:48 | PN ---
Progress Note, Physician History of Present Illness: 82 year old female with PMH significant for hypertension, hyperlipidemia, CAD s/ p myocardial infarction x 2, COPD admitted with COPD exacerbation, ruled out for acute coronary syndrome but found to have elevated BNP. Patient with recent PNA treated with azithromycin 3 weeks prior to admission. She had improvement of symptoms but once antibiotics were stopped, her shortness of breath and productive yellow to clear sputum. Patient also complains of shortness of breath with lying flat which she noticed 1 week prior to admission. Sleeps with hospital bed at an incline of approximately 30 degrees due to shortness of breath. Denies any lh, dizziness, chest pain, palpitations, orthopnea, PND or NICCI. 100% compliant with cardiac medications. Past Medical/Surgical Hx of relevance CAD s/p AL on aspirin and plavix HTN HL advanced COPD Hyperlipidemia Hypertension PAD 2006 [place] in 2006--> 2 coronary stents at [facility] by Dr. Ba (she stopped smoking then) - Current Medication List Current Medications: Active Medications Acetaminophen (Tylenol -) 650 mg PO Q6H PRN PRN Reason: PAIN Albuterol Sulfate (Ventolin 0.083% Nebulizer Soln -) 1 amp NEB Q4H PRN PRN Reason: SHORT OF BREATH/WHEEZING Last Admin: 04/21/18 20:37 Dose: 1 amp Aspirin (Asa -) 81 mg PO DAILY [facility] Last Admin: 04/21/18 10:38 Dose: 81 mg Clopidogrel Bisulfate (Plavix -) 75 mg PO DAILY [facility] Last Admin: 04/21/18 10:38 Dose: 75 mg Guaifenesin (Robitussin -) 10 ml PO Q6H PRN PRN Reason: COUGH Heparin Sodium (Porcine) (Heparin -) 5,000 unit SQ BID [facility] Last Admin: 04/21/18 21:20 Dose: 5,000 unit Levofloxacin (Levaquin 500 Mg Premixed Ivpb -) 500 mg in 100 mls @ 100 mls/hr IVPB DAILY@0800 [facility]; Protocol Last Admin: 04/21/18 10:38 Dose: 100 mls/hr Insulin Aspart (Novolog Vial Sliding Scale -) 1 vial SQ ACHS [facility]; Protocol Last Admin: 04/22/18 06:01 Dose: Not Given Methylprednisolone Sodium Succinate (Solu-Medrol -) 40 mg IVPB Q8H-IV [facility] Last Admin: 04/22/18 01:08 Dose: 40 mg Metoprolol Tartrate (Lopressor -) 50 mg PO BID [facility] Last Admin: 04/21/18 21:20 Dose: 50 mg Ranitidine HCl (Zantac -) 150 mg PO DAILY [facility] Last Admin: 04/21/18 10:38 Dose: 150 mg Rosuvastatin Calcium (Crestor -) 20 mg PO HS [facility] Last Admin: 04/21/18 21:20 Dose: 20 mg Tiotropium [place] (Spiriva Respimat) 2 puff IH DAILY [facility] Last Admin: 04/21/18 10:38 Dose: 2 puff - Objective Vital Signs: Vital Signs Temperature 97.4 F L 04/22/18 06:06 Pulse Rate 63 04/22/18 06:06 Respiratory Rate 20 04/22/18 06:06 Blood Pressure 147/65 04/22/18 06:06 O2 Sat by Pulse Oximetry (%) 98 04/21/18 20:42 Eyes: Yes: WNL, Conjunctiva Clear, EOM Intact HENT: Yes: WNL, Atraumatic, Normocephalic Neck: Yes: WNL, Supple, Trachea Midline Cardiovascular: Yes: WNL, Regular Rate and Rhythm Respiratory: Yes: WNL, Regular, CTA Bilaterally Gastrointestinal: Yes: WNL, Normal Bowel Sounds Genitourinary: Yes: WNL Musculoskeletal: Yes: WNL Extremities: Yes: WNL Edema: No Integumentary: Yes: WNL Neurological: Yes: WNL, Alert, Oriented ...Motor Strength: WNL Psychiatric: Yes: WNL Labs: CBC, BMP 04/22/18 05:30 04/22/18 05:30 INR, PTT INR 1.03 (0.83-1.09) 04/19/18 16:35 Problem List - Problems (1) ASHD (arteriosclerotic heart disease) Code(s): I25.10 - ATHSCL HEART DISEASE OF [place] CORONARY ARTERY W/O ANG PCTRS (2) COPD (chronic obstructive pulmonary disease) Code(s): J44.9 - CHRONIC OBSTRUCTIVE PULMONARY DISEASE, UNSPECIFIED Qualifiers: COPD type: unspecified COPD Qualified Code(s): J44.9 - Chronic obstructive pulmonary disease, unspecified (3) COPD exacerbation Code(s): J44.1 - CHRONIC OBSTRUCTIVE PULMONARY DISEASE W (ACUTE) EXACERBATION (4) Cough Code(s): R05 - COUGH (5) Cough Code(s): R05 - COUGH (6) Elevated brain natriuretic peptide (BNP) level Code(s): R79.89 - OTHER SPECIFIED ABNORMAL FINDINGS OF BLOOD CHEMISTRY (7) HTN (hypertension) Code(s): I10 - ESSENTIAL (PRIMARY) HYPERTENSION (8) Shortness of breath Code(s): R06.02 - SHORTNESS OF BREATH (9) Hematoma Code(s): T14.8XXA - OTHER INJURY OF UNSPECIFIED BODY REGION, INITIAL ENCOUNTER Assessment/Plan 82 year old female with PMH significant for hypertension, hyperlipidemia, CAD s/ p myocardial infarction x 2, COPD admitted with COPD exacerbation, ruled out for acute coronary syndrome but found to have elevated BNP. Patient without history of heart failure, will obtain echocardiogram to assess for lv function and diastolic dysfunction. ACS ruled out. Patient with no peripheral edema but JVP 10cm. #CAD Workup: --ECG NSR, inferior q waves, LVH with nonspecific ST-T changes --trop negative X2 --BNP 2485 Treatment: --continue rosuvastatin 20mg, metoprolol tartrate 50mg BID --start lasix 10mg #Elevated BNP --echocardiogram pending --start lasix 10mg last PCI 2006 - ASA Plavix may be stopped for lung bx
[2018-04-22] MEDS: METOPROLOL TARTRATE 25 MG TABLET (FP) PO SCH ×2 (09:07→21:45)
[2018-04-22] MEDS: CLOPIDOGREL BISULFATE 75 MG TABLET (FP) PO SCH (09:07)
[2018-04-22] MEDS: TIOTROPIUM BROMIDE 2.5 MCG (SPIRIVA) RESPIMAT INHALER IH SCH (09:08)
[2018-04-22] MEDS: HEPARIN NA (PORCINE) 5,000 UNITS/ML 1ML VIAL SQ SCH (09:08)
[2018-04-22] MEDS: RANITIDINE HCL 150 MG TABLET (FP) PO SCH (09:08)
[2018-04-22] MEDS: ASPIRIN 81 MG CHEWABLE TABLETS PO SCH (09:08)
--- NOTE | 2018-04-22 09:26 | PN ---
Progress Note, Physician Chief Complaint: feels better less SOB - Current Medication List Current Medications: Active Medications Acetaminophen (Tylenol -) 650 mg PO Q6H PRN PRN Reason: PAIN Albuterol Sulfate (Ventolin 0.083% Nebulizer Soln -) 1 amp NEB Q4H PRN PRN Reason: SHORT OF BREATH/WHEEZING Last Admin: 04/21/18 20:37 Dose: 1 amp Aspirin (Asa -) 81 mg PO DAILY [facility] Last Admin: 04/22/18 09:08 Dose: 81 mg Clopidogrel Bisulfate (Plavix -) 75 mg PO DAILY [facility] Last Admin: 04/22/18 09:07 Dose: 75 mg Guaifenesin (Robitussin -) 10 ml PO Q6H PRN PRN Reason: COUGH Heparin Sodium (Porcine) (Heparin -) 5,000 unit SQ BID [facility] Last Admin: 04/22/18 09:08 Dose: 5,000 unit Levofloxacin (Levaquin 500 Mg Premixed Ivpb -) 500 mg in 100 mls @ 100 mls/hr IVPB DAILY@0800 [facility]; Protocol Last Admin: 04/22/18 09:07 Dose: 100 mls/hr Insulin Aspart (Novolog Vial Sliding Scale -) 1 vial SQ ACHS [facility]; Protocol Last Admin: 04/22/18 06:01 Dose: Not Given Methylprednisolone Sodium Succinate (Solu-Medrol -) 40 mg IVPB Q8H-IV [facility] Last Admin: 04/22/18 09:07 Dose: 40 mg Metoprolol Tartrate (Lopressor -) 50 mg PO BID [facility] Last Admin: 04/22/18 09:07 Dose: 50 mg Ranitidine HCl (Zantac -) 150 mg PO DAILY [facility] Last Admin: 04/22/18 09:08 Dose: 150 mg Rosuvastatin Calcium (Crestor -) 20 mg PO HS [facility] Last Admin: 04/21/18 21:20 Dose: 20 mg Tiotropium [place] (Spiriva Respimat) 2 puff IH DAILY [facility] Last Admin: 04/22/18 09:08 Dose: 2 puff - Objective Vital Signs: Vital Signs Temperature 97.4 F L 04/22/18 06:06 Pulse Rate 63 04/22/18 06:06 Respiratory Rate 20 04/22/18 06:06 Blood Pressure 147/65 04/22/18 06:06 O2 Sat by Pulse Oximetry (%) 98 10/21/18 20:42 Constitutional: Yes: No Distress, Calm Eyes: Yes: Conjunctiva Clear HENT: Yes: Atraumatic Neck: Yes: Supple Cardiovascular: Yes: Regular Rate and Rhythm Respiratory: Yes: Rhonchi, Wheezes Gastrointestinal: Yes: Soft. No: Distention Genitourinary: No: CVA Tenderness - Left, CVA Tenderness - Right Musculoskeletal: No: Joint Stiffness, Joint Swelling Extremities: No: Cold, Cool Edema: No Integumentary: No: Rash, Venous Stasis Changes Neurological: Yes: WNL, Alert, Oriented ...Motor Strength: WNL Psychiatric: Yes: WNL, Alert, Oriented. No: Agitated Labs: CBC, BMP 04/22/18 05:30 04/22/18 05:30 INR, PTT INR 1.03 (0.83-1.09) 04/19/18 16:35 - ....Imaging Cat Scan: Report Reviewed Other: Report Reviewed Assessment/Plan The patient is a 82 year old female with a significant PMH of hypertension, hyperlipidemia, ACS s/p myocardial infarction x 2, COPD, admitted with acute on chronic COPD exac; acute bronchitis / pneumonia admit; IV steroids; nebs, O2 IV antibiotics BP control pulmonary and cardiology f/u DVT pfx falls PFX chest CT c/w RUL mass invading 2 ribs, needs biopsy d/w cardio dr Allison OK to hold ASA and Plavix - ordered IR and heme onc consult; pt asked me to call her grand son Ti to d/w him too, and I did might need home O2 d/w pt and staff
[2018-04-22 10:10] LABS: ANISOCYTOSIS 0; MACROCYTOSIS 0; PLATELET ESTIMATE DECREASED
--- NOTE | 2018-04-22 11:14 | PN ---
Progress Note, Physician History of Present Illness: PULMONARY ALERT,FEELING BETTER,LESS DYSPNEIC,CHEST CT R CHEST WALL MASS - Current Medication List Current Medications: Active Medications Acetaminophen (Tylenol -) 650 mg PO Q6H PRN PRN Reason: PAIN Albuterol Sulfate (Ventolin 0.083% Nebulizer Soln -) 1 amp NEB Q4H PRN PRN Reason: SHORT OF BREATH/WHEEZING Last Admin: 04/21/18 20:37 Dose: 1 amp Aspirin (Asa -) 81 mg PO DAILY [facility] Last Admin: 04/22/18 09:08 Dose: 81 mg Clopidogrel Bisulfate (Plavix -) 75 mg PO DAILY [facility] Last Admin: 04/22/18 09:07 Dose: 75 mg Guaifenesin (Robitussin -) 10 ml PO Q6H PRN PRN Reason: COUGH Heparin Sodium (Porcine) (Heparin -) 5,000 unit SQ BID [facility] Last Admin: 04/22/18 09:08 Dose: 5,000 unit Levofloxacin (Levaquin 500 Mg Premixed Ivpb -) 500 mg in 100 mls @ 100 mls/hr IVPB DAILY@0800 [facility]; Protocol Last Admin: 04/22/18 09:07 Dose: 100 mls/hr Insulin Aspart (Novolog Vial Sliding Scale -) 1 vial SQ ACHS [facility]; Protocol Last Admin: 04/22/18 06:01 Dose: Not Given Methylprednisolone Sodium Succinate (Solu-Medrol -) 40 mg IVPB Q8H-IV [facility] Last Admin: 04/22/18 09:07 Dose: 40 mg Metoprolol Tartrate (Lopressor -) 50 mg PO BID [facility] Last Admin: 04/22/18 09:07 Dose: 50 mg Ranitidine HCl (Zantac -) 150 mg PO DAILY [facility] Last Admin: 04/22/18 09:08 Dose: 150 mg Rosuvastatin Calcium (Crestor -) 20 mg PO HS [facility] Last Admin: 04/21/18 21:20 Dose: 20 mg Tiotropium [place] (Spiriva Respimat) 2 puff IH DAILY [facility] Last Admin: 04/22/18 09:08 Dose: 2 puff - Objective Vital Signs: Vital Signs Temperature 97 F L 04/22/18 10:13 Pulse Rate 130 H 04/22/18 10:13 Respiratory Rate 20 04/22/18 10:13 Blood Pressure 113/86 04/22/18 10:13 O2 Sat by Pulse Oximetry (%) 100 04/22/18 09:00 Constitutional: Yes: Calm, Thin Eyes: Yes: WNL HENT: Yes: WNL Neck: Yes: WNL Cardiovascular: Yes: Regular Rate and Rhythm, S1, S2 Respiratory: Yes: Diminished Gastrointestinal: Yes: Normal Bowel Sounds, Soft Extremities: Yes: WNL Edema: No Labs: CBC, BMP 04/22/18 05:30 04/22/18 05:30 INR, PTT INR 1.03 (0.83-1.09) 04/19/18 16:35 - ....Imaging Cat Scan: Report Reviewed, Image Reviewed (RIGHT CHEST [place]AL[place] MASS) Problem List - Problems (1) ASHD (arteriosclerotic heart disease) Code(s): I25.10 - ATHSCL HEART DISEASE OF [place] CORONARY ARTERY W/O ANG PCTRS (2) COPD (chronic obstructive pulmonary disease) Code(s): J44.9 - CHRONIC OBSTRUCTIVE PULMONARY DISEASE, UNSPECIFIED Qualifiers: COPD type: unspecified COPD Qualified Code(s): J44.9 - Chronic obstructive pulmonary disease, unspecified (3) Cough Code(s): R05 - COUGH (4) COPD exacerbation Code(s): J44.1 - CHRONIC OBSTRUCTIVE PULMONARY DISEASE W (ACUTE) EXACERBATION (5) HTN (hypertension) Code(s): I10 - ESSENTIAL (PRIMARY) HYPERTENSION (6) Elevated brain natriuretic peptide (BNP) level Code(s): R79.89 - OTHER SPECIFIED ABNORMAL FINDINGS OF BLOOD CHEMISTRY (7) Shortness of breath Code(s): R06.02 - SHORTNESS OF BREATH (8) Cough Code(s): R05 - COUGH Assessment/Plan IMP DYSPNEA IMPROVING COPD EXACERBATION ELEVATED BNP ? CHF ASHD S/P PR X 2 HTN HLD R CHEST WALL MASS PLAN TAPER STEROIDS INHALED BRONCHODILATORS O2 ABX IR FOR CT GUIDED BX R CHEST WALL MASS ECHO PENDING CHECK O2 SAT AT REST AND EXERCISE PRIOR TO DISCHARGE TO DETERMINE IF PT IS A CANDIDATE FOR HOME O2 DR CARDOSO Problem List - Problems (1) ASHD (arteriosclerotic heart disease) Code(s): I25.10 - ATHSCL HEART DISEASE OF [place] CORONARY ARTERY W/O ANG PCTRS (2) COPD (chronic obstructive pulmonary disease) Code(s): J44.9 - CHRONIC OBSTRUCTIVE PULMONARY DISEASE, UNSPECIFIED Qualifiers: COPD type: unspecified COPD Qualified Code(s): J44.9 - Chronic obstructive pulmonary disease, unspecified (3) Cough Code(s): R05 - COUGH (4) COPD exacerbation Code(s): J44.1 - CHRONIC OBSTRUCTIVE PULMONARY DISEASE W (ACUTE) EXACERBATION (5) HTN (hypertension) Code(s): I10 - ESSENTIAL (PRIMARY) HYPERTENSION (6) Elevated brain natriuretic peptide (BNP) level Code(s): R79.89 - OTHER SPECIFIED ABNORMAL FINDINGS OF BLOOD CHEMISTRY (7) Shortness of breath Code(s): R06.02 - SHORTNESS OF BREATH (8) Cough Code(s): R05 - COUGH
--- NOTE | 2018-04-22 14:12 | ECHO ---
Name: OCTOBERRASHAD Exam:Adult Echocardiogram Study Date: 04/22/2018 10:14 AM Age: 82 yrs Reason For Study: R/O CHF Height: 58 in Weight: 87 lb BSA: 1.3 m2 MMode/2D Measurements & Calculations IVSd: 0.88 cm Ao root diam: 1.6 cm LVIDd: 3.1 cm LA dimension: 2.7 cm LVIDs: 2.7 cm LVPWd: 1.7 cm EDV(Teich): 38.8 ml LVOT diam: 1.4 cm ESV(Teich): 28.0 ml RV S Gavino: 9.9 cm/sec Doppler Measurements & Calculations Med Peak E' Gavino: 4.9 cm/sec Lat Peak E' Gavino: 5.3 cm/sec Procedure A complete two-dimensional transthoracic echocardiogram was performed (2D, M-mode, Doppler and color flow Doppler). Severely limited study. Left Ventricle The left ventricle is normal in size. Left ventricular systolic function is normal. Ejection Fraction = 60- 65%. No regional wall motion abnormalities noted. Right Ventricle The right ventricle is normal size. The right ventricular systolic function is normal. RV systolic TD I is 10 cm/s. Atria The left atrial size is normal. Right atrial size is normal. Mitral Valve The mitral valve is normal in structure and function. There is no mitral regurgitation noted. Tricuspid Valve The tricuspid valve is normal in structure and function. There is mild tricuspid regurgitation. Aortic Valve The aortic valve is normal in structure and function. No aortic regurgitation is present. Pulmonic Valve The pulmonic valve is not well visualized. Great Vessels The aortic root is normal size. Pericardium/Pleura There is no pericardial effusion. Interpretation Summary Severely limited study The left ventricle is normal in size. Left ventricular systolic function is normal. Ejection Fraction = 60-65%. The right ventricular systolic function is normal. The left atrial size is normal. Right atrial size is normal. No significant valvular regurgitations are seen Previous study is not available for comparison Neo Cedillo MD 04/22/2018 02:11 PM
[2018-04-22] MEDS: ROSUVASTATIN CA 20 MG TABLET (FP) PO SCH (21:45)
[2018-04-23] MEDS: INSULIN SLIDING SCALE (NOVOLOG) 1 VIAL SQ SCH ×4 (05:59→21:26)
[2018-04-23] MEDS: methylPREDNISolone NA SUCC 40 MG/1 ML VIAL IVPB SCH ×2 (09:28→21:19)
[2018-04-23] MEDS: METOPROLOL TARTRATE 25 MG TABLET (FP) PO SCH ×2 (09:28→21:18)
[2018-04-23] MEDS: RANITIDINE HCL 150 MG TABLET (FP) PO SCH (09:28)
[2018-04-23] MEDS: TIOTROPIUM BROMIDE 2.5 MCG (SPIRIVA) RESPIMAT INHALER IH SCH (09:29)
--- NOTE | 2018-04-23 10:01 | PN ---
Progress Note, Physician Chief Complaint: Pt A&Ox3; anxious; + cough; no palpitations of chest pain. History of Present Illness: The patient is a 82 year old white female, accompanied by son, with a significant PMH of hypertension, hyperlipidemia, ACS s/p myocardial infarction x 2 (s/p coronary angiogram with ? PCI 2008), COPD (quit cigarettes many years ago) who presents to the emergency department with 1.5 weeks of worsening shortness of breath and productive cough with yellow-clear sputum. The patient states that 3 weeks ago she was started on Z-Farhad antibiotics for cold-like symptoms by Dr. Mary Beth Stein. The patient reports initial relief of her symptoms. However, she states since finishing the antibiotics she has had worsening shortness of breath on exertion and has a persistent productive cough with yellow/clear sputum. The patient states she has used inhalers at home for the shortness of breath with mild relief. The patient states she received her flu shot earlier today. The patient denies chest pain, headache and dizziness. Denies fever, chills, nausea, vomit, diarrhea and constipation. Denies dysuria, frequency, urgency and hematuria. Past Medical/Surgical Hx of relevance CAD s/p [place] on aspirin and plavix HTN HL advanced COPD Hyperlipidemia Hypertension PAD 2006 [place] in 2006--> 2 coronary stents at [facility] by Dr. Ba (she stopped smoking then) Allergies: NKA Social history: Former smoker PCP: Dr Mary Beth Stein - Current Medication List Current Medications: Active Medications Acetaminophen (Tylenol -) 650 mg PO Q6H PRN PRN Reason: PAIN Albuterol Sulfate (Ventolin 0.083% Nebulizer Soln -) 1 amp NEB Q4H PRN PRN Reason: SHORT OF BREATH/WHEEZING Last Admin: 04/21/18 20:37 Dose: 1 amp Guaifenesin (Robitussin -) 10 ml PO Q6H PRN PRN Reason: COUGH Levofloxacin (Levaquin 500 Mg Premixed Ivpb -) 500 mg in 100 mls @ 100 mls/hr IVPB DAILY@0800 [facility]; Protocol Last Admin: 04/23/18 08:42 Dose: 100 mls/hr Insulin Aspart (Novolog Vial Sliding Scale -) 1 vial SQ ACHS [facility]; Protocol Last Admin: 04/23/18 05:59 Dose: Not Given Methylprednisolone Sodium Succinate (Solu-Medrol -) 40 mg IVPB BID [facility] Last Admin: 04/23/18 09:28 Dose: 40 mg Metoprolol Tartrate (Lopressor -) 50 mg PO BID [facility] Last Admin: 04/23/18 09:28 Dose: 50 mg Ranitidine HCl (Zantac -) 150 mg PO DAILY [facility] Last Admin: 04/23/18 09:28 Dose: 150 mg Rosuvastatin Calcium (Crestor -) 20 mg PO HS [facility] Last Admin: 04/22/18 21:45 Dose: 20 mg Tiotropium [place] (Spiriva Respimat) 2 puff IH DAILY [facility] Last Admin: 04/23/18 09:29 Dose: 2 puff - Objective Vital Signs: Vital Signs Temperature 97.8 F 04/23/18 02:00 Pulse Rate 55 L 04/23/18 05:38 Respiratory Rate 20 04/23/18 05:38 Blood Pressure 139/63 04/23/18 05:38 O2 Sat by Pulse Oximetry (%) 98 04/22/18 19:42 Constitutional: Yes: Anxious, Moderate Distress, Thin Eyes: Yes: WNL HENT: Yes: WNL Neck: Yes: WNL Cardiovascular: Yes: S1, S2, S4 Respiratory: Yes: Diminished, Tachypnea Gastrointestinal: Yes: Soft ...Rectal Exam: Yes: Deferred Genitourinary: No: Anuria Breast(s): Yes: WNL Musculoskeletal: Yes: Muscle Weakness Extremities: Yes: Cool Edema: No Peripheral Pulses WNL: No Peripheral Pulses: Left Doralis Pedis: 1+, Right Dorsalis Pedis: 1+ Integumentary: Yes: WNL Neurological: Yes: Alert, Oriented, Weakness Psychiatric: Yes: Alert, Oriented, Other (anxiety/depression) Labs: CBC, BMP 04/22/18 05:30 04/22/18 05:30 INR, PTT INR 1.03 (0.83-1.09) 04/19/18 16:35 - ....Imaging Chest X-ray: Image Reviewed Ultrasound: Image Reviewed (ECHO: normal LVEEF and RVEF; normal chamber sizes) Problem List - Problems (1) Lung mass Assessment/Plan: Lung mass wigh rib destruction: highly suspicious for cancer. Pt for biopsy.Discussed pt with Dr. Velazquez, her pump installer. Code(s): R91.8 - OTHER NONSPECIFIC ABNORMAL FINDING OF LUNG FIELD (2) ASHD (arteriosclerotic heart disease) Assessment/Plan: Hx ASHD--> coronary stents in 2006 DEenies chest pressure, but walking has been limited for years by exertional dyspnea. Stress MIBI 09/22/2015: no significant myocardial ischemia. Code(s): I25.10 - ATHSCL HEART DISEASE OF [place] CORONARY ARTERY W/O ANG PCTRS (3) COPD (chronic obstructive pulmonary disease) Code(s): J44.9 - CHRONIC OBSTRUCTIVE PULMONARY DISEASE, UNSPECIFIED Qualifiers: COPD type: unspecified COPD Qualified Code(s): J44.9 - Chronic obstructive pulmonary disease, unspecified (4) Cough Code(s): R05 - COUGH (5) HTN (hypertension) Assessment/Plan: On metoprolol Code(s): I10 - ESSENTIAL (PRIMARY) HYPERTENSION (6) Shortness of breath Code(s): R06.02 - SHORTNESS OF BREATH (7) Diastolic CHF Code(s): I50.30 - UNSPECIFIED DIASTOLIC (CONGESTIVE) HEART FAILURE (8) Anxiety and depression Assessment/Plan: Pt cried repeatedly during today's consult, saying she is sad she may leave her grandson "all alone", and cannot help her daughtere, who is sick herself. Anxiolytics would be of benefit. Code(s): F41.9 - ANXIETY DISORDER, UNSPECIFIED; F32.9 - MAJOR DEPRESSIVE DISORDER, SINGLE EPISODE, UNSPECIFIED (9) Hyperlipidemia Assessment/Plan: on rosuvastatin Code(s): E78.5 - HYPERLIPIDEMIA, UNSPECIFIED (10) Hypothyroid Assessment/Plan: low TSH; f/u TFTs. Code(s): E03.9 - HYPOTHYROIDISM, UNSPECIFIED
[2018-04-23] MEDS ORDERED: ALPRAZolam 0.25 MG TABLET PO ONE (10:50)
[2018-04-23] MEDS ORDERED: ALPRAZolam 0.25 MG TABLET PO PRN ×2 (11:00→11:01)
--- NOTE | 2018-04-23 11:02 | PN ---
Progress Note, Physician Chief Complaint: feeling a little better respiratory almazan buit anxious d/w pt about chest CT r/o malignancy needs biopsy; on xanax prn stopped ASA & Plavix and sq heparin; dropping PLT consults reviewed and d/w pt - Current Medication List Current Medications: Active Medications Acetaminophen (Tylenol -) 650 mg PO Q6H PRN PRN Reason: PAIN Albuterol Sulfate (Ventolin 0.083% Nebulizer Soln -) 1 amp NEB Q4H PRN PRN Reason: SHORT OF BREATH/WHEEZING Last Admin: 04/21/18 20:37 Dose: 1 amp Alprazolam (Xanax -) 0.25 mg PO BID PRN PRN Reason: ANXIETY Guaifenesin (Robitussin -) 10 ml PO Q6H PRN PRN Reason: COUGH Levofloxacin (Levaquin 500 Mg Premixed Ivpb -) 500 mg in 100 mls @ 100 mls/hr IVPB DAILY@0800 [facility]; Protocol Last Admin: 04/23/18 08:42 Dose: 100 mls/hr Insulin Aspart (Novolog Vial Sliding Scale -) 1 vial SQ ACHS [facility]; Protocol Last Admin: 04/23/18 05:59 Dose: Not Given Methylprednisolone Sodium Succinate (Solu-Medrol -) 40 mg IVPB BID [facility] Last Admin: 04/23/18 09:28 Dose: 40 mg Metoprolol Tartrate (Lopressor -) 50 mg PO BID [facility] Last Admin: 04/23/18 09:28 Dose: 50 mg Ranitidine HCl (Zantac -) 150 mg PO DAILY [facility] Last Admin: 04/23/18 09:28 Dose: 150 mg Rosuvastatin Calcium (Crestor -) 20 mg PO HS [facility] Last Admin: 04/22/18 21:45 Dose: 20 mg Tiotropium [place] (Spiriva Respimat) 2 puff IH DAILY [facility] Last Admin: 04/23/18 09:29 Dose: 2 puff - Objective Vital Signs: Vital Signs Temperature 98 F 04/23/18 10:00 Pulse Rate 64 04/23/18 10:00 Respiratory Rate 20 04/23/18 10:00 Blood Pressure 150/100 04/23/18 10:00 O2 Sat by Pulse Oximetry (%) 98 04/22/18 19:42 Constitutional: Yes: No Distress, Calm Eyes: Yes: Conjunctiva Clear HENT: Yes: Atraumatic Neck: Yes: Supple Cardiovascular: Yes: Regular Rate and Rhythm Respiratory: Yes: Rhonchi, Wheezes Gastrointestinal: Yes: Soft. No: Distention Genitourinary: No: CVA Tenderness - Left, CVA Tenderness - Right Musculoskeletal: No: Joint Stiffness, Joint Swelling Extremities: No: Cold, Cool, Cyanosis Edema: No Integumentary: No: Rash, Venous Stasis Changes Neurological: Yes: WNL, Alert, Oriented ...Motor Strength: WNL Psychiatric: Yes: WNL, Alert, Oriented. No: Agitated, Suicidal Ideation Labs: CBC, BMP 04/22/18 05:30 04/22/18 05:30 INR, PTT INR 1.03 (0.83-1.09) 04/19/18 16:35 - ....Imaging Other: Report Reviewed Assessment/Plan The patient is a 82 year old female with a significant PMH of hypertension, hyperlipidemia, ACS s/p myocardial infarction x 2, COPD, admitted with acute on chronic COPD exac; acute bronchitis / pneumonia; low PLT admit; IV steroids; nebs, O2 IV antibiotics BP control pulmonary and cardiology f/u DVT pfx falls PFX chest CT c/w RUL mass invading 2 ribs, needs biopsy hold ASA and Plavix - IR and heme onc consult; d/w pt and staff
--- NOTE | 2018-04-23 11:09 | CONSULT ---
Consult Consult Specialty:: Heme/Onc Referred by:: Dr. Stein Reason for Consultation:: right sided Lung mass - History of Present Illness Chief Complaint: shortness of breath History of Present Illness: 82F PMH of hypertension, hyperlipidemia, ACS s/p myocardial infarction x 2, COPD , who presented to the hospital with cough, shortness of breath and sputum production despite a Z-pack. Patient was across the street at her PMDs office and had much worsening shortness of breath while walking to the pharmacy so she went to the ER. Patient is a long time smoker and quit 10 years ago but for the first 5 years of quitting she was exposed to a lot of second hand smoke from her . Per PMD not patient refused multiple attempts for work up for COPD , pulmonology consult, and lung Ca screening with CT scans. Patient had a CT scan of the chest due to her symptoms and was found to have a right sided lung mass destructing the right lateral second and third ribs suspicious for malignancy. She denies nausea vomiting fever chills chest pain urinary/GI symptoms or lower extremity edema. Patient is able to do all of her ADLs and is able to ambulate without a walker. She reports an 8 pound weight loss over the past few months which has been unintentional. - History Source History Provided By: Patient, Medical Record - Past Medical History Cardio/Vascular: Yes: CAD, CHF, HTN Pulmonary: Yes: COPD - Alcohol/Substance Use Hx Alcohol Use: No History of Substance Use: reports: None - Smoking History Smoking history: Former smoker Have you smoked in the past 12 months: No If you are a former smoker, when did you quit?: 11 years ago - Social History ADL: Independent History of Recent Travel: No Home Medications - Allergies Allergies/Adverse Reactions: Allergies Allergy/AdvReac Type Severity Reaction Status Date / Time No Known Allergies Allergy Verified 04/19/18 14:12 - Home Medications Home Medications: Ambulatory Orders Aspirin [ASA -] 81 mg PO DAILY 07/18/16 Clopidogrel Bisulfate [Plavix -] 75 mg PO DAILY 07/18/16 RX: Metoprolol Tartrate 25 mg PO BID 07/18/16 Rosuvastatin Calcium [Crestor] 20 mg PO HS 07/18/16 Review of Systems - Review of Systems Constitutional: reports: No Symptoms, Unintentional Wgt. Loss (8 pounds) Eyes: reports: No Symptoms HENT: reports: No Symptoms Neck: reports: No Symptoms Cardiovascular: reports: Shortness of Breath Respiratory: reports: Cough, SOB, SOB on Exertion Gastrointestinal: reports: No Symptoms Genitourinary: reports: No Symptoms Musculoskeletal: reports: No Symptoms Integumentary: reports: No Symptoms Neurological: reports: No Symptoms Physical Exam Vital Signs: Vital Signs Temperature 98 F 04/23/18 10:00 Pulse Rate 64 04/23/18 10:00 Respiratory Rate 20 04/23/18 10:00 Blood Pressure 150/100 04/23/18 10:00 O2 Sat by Pulse Oximetry (%) 98 04/22/18 19:42 Constitutional: Yes: Anxious, Thin HENT: Yes: Atraumatic Neck: Yes: Supple. No: Lymphadenopathy Cardiovascular: Yes: Regular Rate and Rhythm, S1, S2 Respiratory: Yes: Other (faint crackles bilaterally) Gastrointestinal: Yes: Soft. No: Tenderness Breast(s): No: Dimpling, Discharge from Nipple, Nipple Inversion, Skin Changes Musculoskeletal: Yes: WNL Extremities: Yes: Other (non inguinal lymphadenopathy appreciated). No: Calf Tenderness Labs: CBC, BMP 04/22/18 05:30 04/22/18 05:30 Imaging - Results Chest X-ray: Report Reviewed, Image Reviewed Cat Scan: Report Reviewed, Image Reviewed Assessment/Plan 82F with history of HTN CAD COPD who presents to the hospital with shortness of breath and productive cough found to have a right chest wall mass destructing the right lateral third and fourth ribs suspicious for malignancy Problem List: Acute exacerbation of COPD Right lung/chest wall mass HLD HTN CAD COPD Plan: Patient will need to have an image guided lung biopsy to have a tissue diagnosis IR consulted by Dr. Velazquez Patient is on plavix/aspirin last dose given yesterday at 10AM for both. Suspicious for Lung Ca Based on tissue diagnosis patient will likely need staging with MRI brain. CT of the chest abdomen pelvis and PET scan. Will follow Case discussed with Dr. Alcala
--- NOTE | 2018-04-23 11:32 | PN ---
Progress Note, Physician History of Present Illness: PULMONARY ALERT,LESS DYSPNEIC. - Current Medication List Current Medications: Active Medications Acetaminophen (Tylenol -) 650 mg PO Q6H PRN PRN Reason: PAIN Albuterol Sulfate (Ventolin 0.083% Nebulizer Soln -) 1 amp NEB Q4H PRN PRN Reason: SHORT OF BREATH/WHEEZING Last Admin: 04/21/18 20:37 Dose: 1 amp Alprazolam (Xanax -) 0.25 mg PO BID PRN PRN Reason: ANXIETY Guaifenesin (Robitussin -) 10 ml PO Q6H PRN PRN Reason: COUGH Levofloxacin (Levaquin 500 Mg Premixed Ivpb -) 500 mg in 100 mls @ 100 mls/hr IVPB DAILY@0800 [facility]; Protocol Last Admin: 04/23/18 08:42 Dose: 100 mls/hr Insulin Aspart (Novolog Vial Sliding Scale -) 1 vial SQ ACHS [facility]; Protocol Last Admin: 04/23/18 05:59 Dose: Not Given Methylprednisolone Sodium Succinate (Solu-Medrol -) 40 mg IVPB BID [facility] Last Admin: 04/23/18 09:28 Dose: 40 mg Metoprolol Tartrate (Lopressor -) 50 mg PO BID [facility] Last Admin: 04/23/18 09:28 Dose: 50 mg Ranitidine HCl (Zantac -) 150 mg PO DAILY [facility] Last Admin: 04/23/18 09:28 Dose: 150 mg Rosuvastatin Calcium (Crestor -) 20 mg PO HS [facility] Last Admin: 04/22/18 21:45 Dose: 20 mg Tiotropium [place] (Spiriva Respimat) 2 puff IH DAILY [facility] Last Admin: 04/23/18 09:29 Dose: 2 puff - Objective Vital Signs: Vital Signs Temperature 98 F 04/23/18 10:00 Pulse Rate 64 04/23/18 10:00 Respiratory Rate 20 04/23/18 10:00 Blood Pressure 150/100 04/23/18 10:00 O2 Sat by Pulse Oximetry (%) 98 04/22/18 19:42 Constitutional: Yes: Calm, Thin Eyes: Yes: WNL HENT: Yes: WNL Neck: Yes: WNL Cardiovascular: Yes: Regular Rate and Rhythm, S1, S2 Respiratory: Yes: Diminished Gastrointestinal: Yes: Normal Bowel Sounds, Soft Extremities: Yes: WNL Edema: No Labs: CBC, BMP Problem List - Problems (1) ASHD (arteriosclerotic heart disease) Code(s): I25.10 - ATHSCL HEART DISEASE OF [place] CORONARY ARTERY W/O ANG PCTRS (2) COPD (chronic obstructive pulmonary disease) Code(s): J44.9 - CHRONIC OBSTRUCTIVE PULMONARY DISEASE, UNSPECIFIED Qualifiers: COPD type: unspecified COPD Qualified Code(s): J44.9 - Chronic obstructive pulmonary disease, unspecified (3) Cough Code(s): R05 - COUGH (4) COPD exacerbation Code(s): J44.1 - CHRONIC OBSTRUCTIVE PULMONARY DISEASE W (ACUTE) EXACERBATION (5) HTN (hypertension) Code(s): I10 - ESSENTIAL (PRIMARY) HYPERTENSION (6) Elevated brain natriuretic peptide (BNP) level Code(s): R79.89 - OTHER SPECIFIED ABNORMAL FINDINGS OF BLOOD CHEMISTRY (7) Shortness of breath Code(s): R06.02 - SHORTNESS OF BREATH (8) Cough Code(s): R05 - COUGH Assessment/Plan IMP DYSPNEA IMPROVING COPD EXACERBATION ELEVATED BNP ? CHF ASHD S/P [place] X 2 HTN HLD R CHEST WALL MASS PLAN TAPER STEROIDS INHALED BRONCHODILATORS O2 ABX IR FOR CT GUIDED BX R CHEST WALL MASS CHECK O2 SAT AT REST AND EXERCISE PRIOR TO DISCHARGE TO DETERMINE IF PT IS A CANDIDATE FOR HOME O2 DR CARDOSO Problem List - Problems (1) ASHD (arteriosclerotic heart disease) Code(s): I25.10 - ATHSCL HEART DISEASE OF [place] CORONARY ARTERY W/O ANG PCTRS (2) COPD (chronic obstructive pulmonary disease) Code(s): J44.9 - CHRONIC OBSTRUCTIVE PULMONARY DISEASE, UNSPECIFIED Qualifiers: COPD type: unspecified COPD Qualified Code(s): J44.9 - Chronic obstructive pulmonary disease, unspecified (3) Cough Code(s): R05 - COUGH (4) COPD exacerbation Code(s): J44.1 - CHRONIC OBSTRUCTIVE PULMONARY DISEASE W (ACUTE) EXACERBATION (5) HTN (hypertension) Code(s): I10 - ESSENTIAL (PRIMARY) HYPERTENSION (6) Elevated brain natriuretic peptide (BNP) level Code(s): R79.89 - OTHER SPECIFIED ABNORMAL FINDINGS OF BLOOD CHEMISTRY (7) Shortness of breath Code(s): R06.02 - SHORTNESS OF BREATH (8) Cough Code(s): R05 - COUGH
--- NOTE | 2018-04-23 17:41 | EKG ---
Test Reason : Blood Pressure : / mmHG Vent. Rate : 058 BPM Atrial Rate : 058 BPM P-R Int : 106 ms QRS Dur : 086 ms QT Int : 422 ms P-R-T Axes : 050 057 260 degrees QTc Int : 414 ms SINUS BRADYCARDIA WITH MARKED SINUS ARRHYTHMIA WITH SHORT VA ABNORMAL ECG WHEN COMPARED WITH ECG OF 19-APR-2018 17:00, ST NO LONGER DEPRESSED IN ANTERIOR LEADS Confirmed by Murali Sousa MD ([id number]) on 04/23/2018 5:41:21 PM Referred By: FARA AGUILAR DR Confirmed By:Murali Sousa MD
--- NOTE | 2018-04-23 19:39 | PN ---
Teaching Attending Note Name of Resident: Kurtis Rosario ATTENDING PHYSICIAN STATEMENT I saw and evaluated the patient. I reviewed the resident's note and discussed the case with the resident. I agree with the resident's findings and plan as documented. SUBJECTIVE Patient seen and examined Smoking history now with lung mass with invasion and rib destruction Will need tissue diagnosis to begin. Further evaluation thereafter. OBJECTIVE: ASSESSMENT AND PLAN:
[2018-04-23] MEDS: ALBUTEROL SO4 0.083% IH SOL 2.5 MG/3 ML VIAL.NEB. NEB PRN (20:00)
[2018-04-23] MEDS: ROSUVASTATIN CA 20 MG TABLET (FP) PO SCH (21:18)
[2018-04-24] MEDS: INSULIN SLIDING SCALE (NOVOLOG) 1 VIAL SQ SCH ×4 (06:12→21:49)
[2018-04-24 06:16] LABS: BASO % 0.1 % (0-2.0); HEMATOCRIT 36.2 % (32.4-45.2); HEMOGLOBIN 11.7 GM/dL (10.7-15.3); LYMPH % 2.5 % (8-40); MCH 29.5 pg (25.7-33.7); MCHC 32.2 g/dl (32.0-36.0); MEAN CELL VOLUME 91.6 fl (80-96); MEAN PLT VOLUME 11.1 fl (7.5-11.1); MONO % 2.1 % (3.8-10.2); NEUT % 95.3 % (42.8-82.8); PLATELET COUNT 72 K/MM3 (134-434); RBC 3.95 M/mm3 (3.60-5.2); RDW 15.9 % (11.6-15.6); WHITE BLOOD COUNT 6.9 K/mm3 (4.0-10.0)
[2018-04-24 06:29] LABS: INR 1.03 (0.83-1.09); PROTHROMBIN TIME (PATIENT) 12.1 SEC (9.7-13.0)
[2018-04-24 06:32] LABS: ACTIVATED PTT 25.3 SECONDS (25.2-36.5)
[2018-04-24 07:25] LABS: ALK PHOS 54 U/L (45-117); ANION GAP 4 MMOL/L (8-16); BILIRUBIN,TOTAL 0.4 mg/dL (0.2-1); BLOOD UREA NITROGEN 33 mg/dL (7-18); CALCIUM 8.6 mg/dL (8.5-10.1); CHLORIDE 105 mmol/L (98-107); CO2 32 mmol/L (21-32); CREATININE 0.8 mg/dL (0.55-1.3); GLUCOSE,RANDOM 116 mg/dL (74-106); POTASSIUM 4.4 mmol/L (3.5-5.1); SGOT/AST 28 U/L (15-37); SGPT/ALT 33 U/L (13-61); SODIUM 142 mmol/L (136-145); TOT PROT 5.5 g/dl (6.4-8.2)
--- NOTE | 2018-04-24 08:27 | PN ---
Progress Note, Physician Chief Complaint: no new c/o; still occasional wheezing but better - Current Medication List Current Medications: Active Medications Acetaminophen (Tylenol -) 650 mg PO Q6H PRN PRN Reason: PAIN Albuterol Sulfate (Ventolin 0.083% Nebulizer Soln -) 1 amp NEB Q4H PRN PRN Reason: SHORT OF BREATH/WHEEZING Last Admin: 04/23/18 20:00 Dose: 1 amp Alprazolam (Xanax -) 0.25 mg PO BID PRN PRN Reason: ANXIETY Guaifenesin (Robitussin -) 10 ml PO Q6H PRN PRN Reason: COUGH Levofloxacin (Levaquin 500 Mg Premixed Ivpb -) 500 mg in 100 mls @ 100 mls/hr IVPB DAILY@0800 [facility]; Protocol Last Admin: 04/24/18 08:07 Dose: 100 mls/hr Insulin Aspart (Novolog Vial Sliding Scale -) 1 vial SQ ACHS [facility]; Protocol Last Admin: 04/24/18 06:12 Dose: Not Given Methylprednisolone Sodium Succinate (Solu-Medrol -) 40 mg IVPB BID [facility] Last Admin: 04/23/18 21:19 Dose: 40 mg Metoprolol Tartrate (Lopressor -) 50 mg PO BID [facility] Last Admin: 04/23/18 21:18 Dose: 50 mg Ranitidine HCl (Zantac -) 150 mg PO DAILY [facility] Last Admin: 04/23/18 09:28 Dose: 150 mg Rosuvastatin Calcium (Crestor -) 20 mg PO HS [facility] Last Admin: 04/23/18 21:18 Dose: 20 mg Tiotropium [place] (Spiriva Respimat) 2 puff IH DAILY [facility] Last Admin: 04/23/18 09:29 Dose: 2 puff - Objective Vital Signs: Vital Signs Temperature 97.5 F L 04/24/18 02:00 Pulse Rate 64 04/24/18 02:00 Respiratory Rate 20 04/24/18 02:00 Blood Pressure 146/63 04/24/18 02:00 O2 Sat by Pulse Oximetry (%) 99 04/23/18 21:00 Constitutional: Yes: No Distress, Calm Eyes: Yes: Conjunctiva Clear HENT: Yes: Atraumatic Neck: Yes: Supple Cardiovascular: Yes: Regular Rate and Rhythm Respiratory: Yes: Wheezes Gastrointestinal: Yes: Soft. No: Distention Genitourinary: No: CVA Tenderness - Left, CVA Tenderness - Right Musculoskeletal: No: Joint Stiffness, Joint Swelling Extremities: No: Cold, Cool, Cyanosis Edema: No Integumentary: No: Rash, Venous Stasis Changes Neurological: Yes: WNL, Alert, Oriented ...Motor Strength: WNL Psychiatric: Yes: WNL, Alert, Oriented. No: Agitated, Suicidal Ideation Labs: CBC, BMP 04/24/18 05:30 04/24/18 05:30 INR, PTT INR 1.03 (0.83-1.09) 04/24/18 05:30 - ....Imaging Other: Report Reviewed Assessment/Plan The patient is a 82 year old female with a significant PMH of hypertension, hyperlipidemia, ACS s/p myocardial infarction x 2, COPD, admitted with acute on chronic COPD exac; acute bronchitis / pneumonia; low PLT taper IV steroids; nebs, O2 IV antibiotics BP control pulmonary and cardiology f/u DVT pfx falls PFX chest CT c/w RUL mass invading 2 ribs, needs biopsy hold ASA and Plavix - IR and heme onc consult; d/w pt and staff
--- NOTE | 2018-04-24 08:27 | PN ---
Progress Note, Physician - Current Medication List Current Medications: Active Medications Acetaminophen (Tylenol -) 650 mg PO Q6H PRN PRN Reason: PAIN Albuterol Sulfate (Ventolin 0.083% Nebulizer Soln -) 1 amp NEB Q4H PRN PRN Reason: SHORT OF BREATH/WHEEZING Last Admin: 04/23/18 20:00 Dose: 1 amp Alprazolam (Xanax -) 0.25 mg PO BID PRN PRN Reason: ANXIETY Guaifenesin (Robitussin -) 10 ml PO Q6H PRN PRN Reason: COUGH Levofloxacin (Levaquin 500 Mg Premixed Ivpb -) 500 mg in 100 mls @ 100 mls/hr IVPB DAILY@0800 [facility]; Protocol Last Admin: 04/24/18 08:07 Dose: 100 mls/hr Insulin Aspart (Novolog Vial Sliding Scale -) 1 vial SQ ACHS [facility]; Protocol Last Admin: 04/24/18 06:12 Dose: Not Given Methylprednisolone Sodium Succinate (Solu-Medrol -) 40 mg IVPB BID [facility] Last Admin: 04/23/18 21:19 Dose: 40 mg Metoprolol Tartrate (Lopressor -) 50 mg PO BID [facility] Last Admin: 04/23/18 21:18 Dose: 50 mg Ranitidine HCl (Zantac -) 150 mg PO DAILY [facility] Last Admin: 04/23/18 09:28 Dose: 150 mg Rosuvastatin Calcium (Crestor -) 20 mg PO HS [facility] Last Admin: 04/23/18 21:18 Dose: 20 mg Tiotropium [place] (Spiriva Respimat) 2 puff IH DAILY [facility] Last Admin: 04/23/18 09:29 Dose: 2 puff - Objective Vital Signs: Vital Signs Temperature 97.5 F L 04/24/18 02:00 Pulse Rate 64 04/24/18 02:00 Respiratory Rate 20 04/24/18 02:00 Blood Pressure 146/63 04/24/18 02:00 O2 Sat by Pulse Oximetry (%) 99 04/23/18 21:00 Labs: CBC, BMP 04/24/18 05:30 04/24/18 05:30 INR, PTT INR 1.03 (0.83-1.09) 04/24/18 05:30
[2018-04-24] MEDS: RANITIDINE HCL 150 MG TABLET (FP) PO SCH (09:19)
[2018-04-24] MEDS: methylPREDNISolone NA SUCC 40 MG/1 ML VIAL IVPB SCH ×2 (09:19→21:29)
[2018-04-24] MEDS: METOPROLOL TARTRATE 25 MG TABLET (FP) PO SCH ×2 (09:19→21:30)
[2018-04-24] MEDS: TIOTROPIUM BROMIDE 2.5 MCG (SPIRIVA) RESPIMAT INHALER IH SCH (09:20)
[2018-04-24 09:39] LABS: ANISOCYTOSIS 1+; MACROCYTOSIS 1+; PLATELET ESTIMATE DECREASED
--- NOTE | 2018-04-24 10:45 | PN ---
Progress Note, Physician History of Present Illness: 82 year old female with PMH significant for hypertension, hyperlipidemia, CAD s/ p myocardial infarction x 2, COPD admitted with COPD exacerbation, ruled out for acute coronary syndrome but found to have elevated BNP. Patient with recent PNA treated with azithromycin 3 weeks prior to admission. She had improvement of symptoms but once antibiotics were stopped, her shortness of breath and productive yellow to clear sputum. Patient also complains of shortness of breath with lying flat which she noticed 1 week prior to admission. Sleeps with hospital bed at an incline of approximately 30 degrees due to shortness of breath. Denies any lh, dizziness, chest pain, palpitations, orthopnea, PND or NICCI. 100% compliant with cardiac medications. Past Medical/Surgical Hx of relevance CAD s/p [place] on aspirin and plavix HTN HL advanced COPD Hyperlipidemia Hypertension PAD 2006 TX in 2006--> 2 coronary stents at [facility] by Dr. Ba (she stopped smoking then) - Current Medication List Current Medications: Active Medications Acetaminophen (Tylenol -) 650 mg PO Q6H PRN PRN Reason: PAIN Albuterol Sulfate (Ventolin 0.083% Nebulizer Soln -) 1 amp NEB Q4H PRN PRN Reason: SHORT OF BREATH/WHEEZING Last Admin: 04/23/18 20:00 Dose: 1 amp Alprazolam (Xanax -) 0.25 mg PO BID PRN PRN Reason: ANXIETY Guaifenesin (Robitussin -) 10 ml PO Q6H PRN PRN Reason: COUGH Levofloxacin (Levaquin 500 Mg Premixed Ivpb -) 500 mg in 100 mls @ 100 mls/hr IVPB DAILY@0800 [facility]; Protocol Last Admin: 04/24/18 08:07 Dose: 100 mls/hr Insulin Aspart (Novolog Vial Sliding Scale -) 1 vial SQ ACHS [facility]; Protocol Last Admin: 04/24/18 06:12 Dose: Not Given Methylprednisolone Sodium Succinate (Solu-Medrol -) 40 mg IVPB BID [facility] Last Admin: 04/24/18 09:19 Dose: 40 mg Metoprolol Tartrate (Lopressor -) 50 mg PO BID [facility] Last Admin: 04/24/18 09:19 Dose: 50 mg Ranitidine HCl (Zantac -) 150 mg PO DAILY [facility] Last Admin: 04/24/18 09:19 Dose: 150 mg Rosuvastatin Calcium (Crestor -) 20 mg PO HS [facility] Last Admin: 04/23/18 21:18 Dose: 20 mg Tiotropium [place] (Spiriva Respimat) 2 puff IH DAILY [facility] Last Admin: 04/24/18 09:20 Dose: 2 puff - Objective Vital Signs: Vital Signs Temperature 97.3 F L 04/24/18 09:02 Pulse Rate 64 04/24/18 09:02 Respiratory Rate 20 04/24/18 09:02 Blood Pressure 152/69 04/24/18 09:02 O2 Sat by Pulse Oximetry (%) 99 04/24/18 09:02 Eyes: Yes: WNL, Conjunctiva Clear, EOM Intact HENT: Yes: WNL, Atraumatic, Normocephalic Neck: Yes: WNL, Supple, Trachea Midline Cardiovascular: Yes: WNL, Regular Rate and Rhythm Respiratory: Yes: WNL, Regular, CTA Bilaterally Gastrointestinal: Yes: WNL, Normal Bowel Sounds Genitourinary: Yes: WNL Musculoskeletal: Yes: WNL Extremities: Yes: WNL Edema: No Integumentary: Yes: WNL Neurological: Yes: WNL, Alert, Oriented ...Motor Strength: WNL Psychiatric: Yes: WNL Labs: CBC, BMP 04/24/18 05:30 04/24/18 05:30 INR, PTT INR 1.03 (0.83-1.09) 04/24/18 05:30 Problem List - Problems (1) ASHD (arteriosclerotic heart disease) Code(s): I25.10 - ATHSCL HEART DISEASE OF [place] CORONARY ARTERY W/O ANG PCTRS (2) COPD (chronic obstructive pulmonary disease) Code(s): J44.9 - CHRONIC OBSTRUCTIVE PULMONARY DISEASE, UNSPECIFIED Qualifiers: COPD type: unspecified COPD Qualified Code(s): J44.9 - Chronic obstructive pulmonary disease, unspecified (3) COPD exacerbation Code(s): J44.1 - CHRONIC OBSTRUCTIVE PULMONARY DISEASE W (ACUTE) EXACERBATION (4) Cough Code(s): R05 - COUGH (5) Cough Code(s): R05 - COUGH (6) Elevated brain natriuretic peptide (BNP) level Code(s): R79.89 - OTHER SPECIFIED ABNORMAL FINDINGS OF BLOOD CHEMISTRY (7) HTN (hypertension) Code(s): I10 - ESSENTIAL (PRIMARY) HYPERTENSION (8) Shortness of breath Code(s): R06.02 - SHORTNESS OF BREATH (9) Hematoma Code(s): T14.8XXA - OTHER INJURY OF UNSPECIFIED BODY REGION, INITIAL ENCOUNTER Assessment/Plan - Problems (1) Lung mass Assessment/Plan: Lung mass wigh rib destruction: highly suspicious for cancer. Pt for biopsy. DAPT held (2) ASHD (arteriosclerotic heart disease) Assessment/Plan: Hx ASHD--> coronary stents in 2006 DEenies chest pressure, but walking has been limited for years by exertional dyspnea. Stress MIBI 09/22/2015: no significant myocardial ischemia. Code(s): I25.10 - ATHSCL HEART DISEASE OF [place] CORONARY ARTERY W/O ANG PCTRS (3) COPD (chronic obstructive pulmonary disease) Code(s): J44.9 - CHRONIC OBSTRUCTIVE PULMONARY DISEASE, UNSPECIFIED Qualifiers: COPD type: unspecified COPD Qualified Code(s): J44.9 - Chronic obstructive pulmonary disease, unspecified (4) Cough Code(s): R05 - COUGH (5) HTN (hypertension) Assessment/Plan: On metoprolol Code(s): I10 - ESSENTIAL (PRIMARY) HYPERTENSION (6) Shortness of breath Code(s): R06.02 - SHORTNESS OF BREATH (7) Diastolic CHF Code(s): I50.30 - UNSPECIFIED DIASTOLIC (CONGESTIVE) HEART FAILURE (8) Anxiety and depression Assessment/Plan: Pt cried repeatedly during today's consult, saying she is sad she may leave her grandson "all alone", and cannot help her daughtere, who is sick herself. Anxiolytics would be of benefit. Code(s): F41.9 - ANXIETY DISORDER, UNSPECIFIED; F32.9 - MAJOR DEPRESSIVE DISORDER, SINGLE EPISODE, UNSPECIFIED (9) Hyperlipidemia Assessment/Plan: on rosuvastatin Code(s): E78.5 - HYPERLIPIDEMIA, UNSPECIFIED (10) Hypothyroid Assessment/Plan: low TSH; f/u TFTs. Code(s): E03.9 - HYPOTHYROIDISM, UNSPECIFIED
--- NOTE | 2018-04-24 11:34 | PN ---
Progress Note, Physician History of Present Illness: PULMONARY ALERT,NO DISTRESS,DYSPNEA IMPROVED,-CP - Current Medication List Current Medications: Active Medications Acetaminophen (Tylenol -) 650 mg PO Q6H PRN PRN Reason: PAIN Albuterol Sulfate (Ventolin 0.083% Nebulizer Soln -) 1 amp NEB Q4H PRN PRN Reason: SHORT OF BREATH/WHEEZING Last Admin: 04/23/18 20:00 Dose: 1 amp Alprazolam (Xanax -) 0.25 mg PO BID PRN PRN Reason: ANXIETY Guaifenesin (Robitussin -) 10 ml PO Q6H PRN PRN Reason: COUGH Levofloxacin (Levaquin 500 Mg Premixed Ivpb -) 500 mg in 100 mls @ 100 mls/hr IVPB DAILY@0800 [facility]; Protocol Last Admin: 04/24/18 08:07 Dose: 100 mls/hr Insulin Aspart (Novolog Vial Sliding Scale -) 1 vial SQ ACHS [facility]; Protocol Last Admin: 04/24/18 06:12 Dose: Not Given Methylprednisolone Sodium Succinate (Solu-Medrol -) 40 mg IVPB BID [facility] Last Admin: 04/24/18 09:19 Dose: 40 mg Metoprolol Tartrate (Lopressor -) 50 mg PO BID [facility] Last Admin: 04/24/18 09:19 Dose: 50 mg Ranitidine HCl (Zantac -) 150 mg PO DAILY [facility] Last Admin: 04/24/18 09:19 Dose: 150 mg Rosuvastatin [place] (Crestor -) 20 mg PO HS [facility] Last Admin: 04/23/18 21:18 Dose: 20 mg Tiotropium [place] (Spiriva Respimat) 2 puff IH DAILY [facility] Last Admin: 04/24/18 09:20 Dose: 2 puff - Objective Vital Signs: Vital Signs Temperature 97.3 F L 04/24/18 09:02 Pulse Rate 64 04/24/18 09:02 Respiratory Rate 20 04/24/18 09:02 Blood Pressure 152/69 04/24/18 09:02 O2 Sat by Pulse Oximetry (%) 99 04/24/18 09:02 Constitutional: Yes: Calm, Thin Eyes: Yes: WNL HENT: Yes: WNL Neck: Yes: WNL Cardiovascular: Yes: Regular Rate and Rhythm, S1, S2 Respiratory: Yes: Diminished Gastrointestinal: Yes: Normal Bowel Sounds, Soft Extremities: Yes: WNL Edema: No Labs: CBC, BMP 04/24/18 05:30 04/24/18 05:30 INR, PTT INR 1.03 (0.83-1.09) 04/24/18 05:30 Problem List - Problems (1) ASHD (arteriosclerotic heart disease) Code(s): I25.10 - ATHSCL HEART DISEASE OF [place] CORONARY ARTERY W/O ANG PCTRS (2) COPD (chronic obstructive pulmonary disease) Code(s): J44.9 - CHRONIC OBSTRUCTIVE PULMONARY DISEASE, UNSPECIFIED Qualifiers: COPD type: unspecified COPD Qualified Code(s): J44.9 - Chronic obstructive pulmonary disease, unspecified (3) Cough Code(s): R05 - COUGH (4) COPD exacerbation Code(s): J44.1 - CHRONIC OBSTRUCTIVE PULMONARY DISEASE W (ACUTE) EXACERBATION (5) HTN (hypertension) Code(s): I10 - ESSENTIAL (PRIMARY) HYPERTENSION (6) Elevated brain natriuretic peptide (BNP) level Code(s): R79.89 - OTHER SPECIFIED ABNORMAL FINDINGS OF BLOOD CHEMISTRY (7) Shortness of breath Code(s): R06.02 - SHORTNESS OF BREATH (8) Cough Code(s): R05 - COUGH Assessment/Plan IMP DYSPNEA IMPROVING COPD EXACERBATION ELEVATED BNP ? CHF ASHD S/P [place] X 2 HTN HLD R CHEST WALL MASS PLAN TAPER STEROIDS INHALED BRONCHODILATORS O2 ABX IR FOR CT GUIDED BX R CHEST WALL MASS CHECK O2 SAT AT REST AND EXERCISE PRIOR TO DISCHARGE TO DETERMINE IF PT IS A CANDIDATE FOR HOME O2 DR CARDOSO Problem List - Problems (1) ASHD (arteriosclerotic heart disease) Code(s): I25.10 - ATHSCL HEART DISEASE OF [place] CORONARY ARTERY W/O ANG PCTRS (2) COPD (chronic obstructive pulmonary disease) Code(s): J44.9 - CHRONIC OBSTRUCTIVE PULMONARY DISEASE, UNSPECIFIED Qualifiers: COPD type: unspecified COPD Qualified Code(s): J44.9 - Chronic obstructive pulmonary disease, unspecified (3) Cough Code(s): R05 - COUGH (4) COPD exacerbation Code(s): J44.1 - CHRONIC OBSTRUCTIVE PULMONARY DISEASE W (ACUTE) EXACERBATION (5) HTN (hypertension) Code(s): I10 - ESSENTIAL (PRIMARY) HYPERTENSION (6) Elevated brain natriuretic peptide (BNP) level Code(s): R79.89 - OTHER SPECIFIED ABNORMAL FINDINGS OF BLOOD CHEMISTRY (7) Shortness of breath Code(s): R06.02 - SHORTNESS OF BREATH (8) Cough Code(s): R05 - COUGH
--- NOTE | 2018-04-24 14:38 | PN ---
Progress Note (short form) - Note Progress Note: Patient seen and examined at bedside Awaiting lung biopsy Vital Signs Temperature 97.3 F L 04/24/18 09:02 Pulse Rate 64 04/24/18 09:02 Respiratory Rate 20 04/24/18 09:02 Blood Pressure 152/69 04/24/18 09:02 O2 Sat by Pulse Oximetry (%) 99 04/24/18 09:02 Constitutional: Yes: Anxious, Thin HENT: Yes: Atraumatic Neck: Yes: Supple. No: Lymphadenopathy Cardiovascular: Yes: Regular Rate and Rhythm, S1, S2 Respiratory: Yes: Other (faint crackles bilaterally diminished breath sounds bilaterally) Gastrointestinal: Yes: Soft. No: Tenderness Musculoskeletal: Yes: WNL Extremities: No: Calf Tenderness No: Edema 04/24/18 04/24/18 04/24/18 05:30 05:30 05:30 WBC 6.9 RBC 3.95 Hgb 11.7 Hct 36.2 MCV 91.6 MCHC 32.2 RDW 15.9 H Plt Count 72 L D Neutrophils % 95.3 H Lymphocytes % 2.5 L D Monocytes % 2.1 L Eosinophils % 0.0 Basophils % 0.1 INR 1.03 Sodium 142 Potassium 4.4 Chloride 105 Carbon Dioxide 32 Anion Gap 4 L BUN 33 H Creatinine 0.8 04/19/18 16:35 Blood Culture - Preliminary Blood - Peripheral Venous NO GROWTH OBTAINED AFTER 96 HOURS, INCUBATION TO CONTINUE FOR 1 DAYS. 04/19/18 16:35 Blood Culture - Preliminary Blood - Peripheral Venous NO GROWTH OBTAINED AFTER 96 HOURS, INCUBATION TO CONTINUE FOR 1 DAYS. 04/19/18 18:29 Urine Culture - Final Urine - Urine Clean Catch NO GROWTH OBTAINED 82F with history of HTN CAD COPD who presents to the hospital with shortness of breath and productive cough found to have a right chest wall mass destructing the right lateral third and fourth ribs suspicious for malignancy Problem List: Acute exacerbation of COPD Right lung/chest wall mass HLD HTN CAD COPD Plan: Patient will need to have an image guided lung biopsy to have a tissue diagnosis Patient is on plavix/aspirin last dose given 04/22 at 10AM for both. Suspicious for Lung Ca Based on tissue diagnosis patient will likely need staging with MRI brain. CT of the chest abdomen pelvis and PET scan. Will follow
[2018-04-24] MEDS: ROSUVASTATIN CA 20 MG TABLET (FP) PO SCH (21:30)
[2018-04-25] MEDS: INSULIN SLIDING SCALE (NOVOLOG) 1 VIAL SQ SCH ×4 (06:24→22:17)
[2018-04-25] MEDS: TIOTROPIUM BROMIDE 2.5 MCG (SPIRIVA) RESPIMAT INHALER IH SCH (09:10)
[2018-04-25] MEDS: methylPREDNISolone NA SUCC 40 MG/1 ML VIAL IVPB SCH ×2 (09:11→22:18)
[2018-04-25] MEDS: METOPROLOL TARTRATE 25 MG TABLET (FP) PO SCH ×2 (09:12→22:17)
[2018-04-25] MEDS: RANITIDINE HCL 150 MG TABLET (FP) PO SCH (09:12)
--- NOTE | 2018-04-25 10:05 | PN ---
Progress Note, Physician Chief Complaint: Pt A&Ox3; less anxious; asked for cough medicine because her chest has begun to hurt when she coughs. History of Present Illness: The patient is a 82 year old white female, accompanied by son, with a significant PMH of hypertension, hyperlipidemia, ACS s/p myocardial infarction x 2 (s/p coronary angiogram with ? PCI 2008), COPD (quit cigarettes many years ago) who presents to the emergency department with 1.5 weeks of worsening shortness of breath and productive cough with yellow-clear sputum. The patient states that 3 weeks ago she was started on Z-Farhad antibiotics for cold-like symptoms by Dr. Mary Beth Stein. The patient reports initial relief of her symptoms. However, she states since finishing the antibiotics she has had worsening shortness of breath on exertion and has a persistent productive cough with yellow/clear sputum. The patient states she has used inhalers at home for the shortness of breath with mild relief. The patient states she received her flu shot earlier today. The patient denies chest pain, headache and dizziness. Denies fever, chills, nausea, vomit, diarrhea and constipation. Denies dysuria, frequency, urgency and hematuria. Past Medical/Surgical Hx of relevance CAD s/p MA on aspirin and plavix HTN HL advanced COPD Hyperlipidemia Hypertension PAD 2006 MA in 2006--> 2 coronary stents at [facility] by Dr. Ba (she stopped smoking then) Allergies: NKA Social history: Former smoker PCP: Dr Mary Beth Stein - Current Medication List Current Medications: Active Medications Acetaminophen (Tylenol -) 650 mg PO Q6H PRN PRN Reason: PAIN Albuterol Sulfate (Ventolin 0.083% Nebulizer Soln -) 1 amp NEB Q4H PRN PRN Reason: SHORT OF BREATH/WHEEZING Last Admin: 04/23/18 20:00 Dose: 1 amp Alprazolam (Xanax -) 0.25 mg PO BID PRN PRN Reason: ANXIETY Guaifenesin (Robitussin -) 10 ml PO Q6H PRN PRN Reason: COUGH Last Admin: 04/25/18 09:11 Dose: 10 ml Levofloxacin (Levaquin 500 Mg Premixed Ivpb -) 500 mg in 100 mls @ 100 mls/hr IVPB DAILY@0800 [facility]; Protocol Last Admin: 04/25/18 09:58 Dose: 100 mls/hr Insulin Aspart (Novolog Vial Sliding Scale -) 1 vial SQ ACHS ON LICENSE OF [facility]; Protocol Last Admin: 04/25/18 06:24 Dose: Not Given Methylprednisolone Sodium Succinate (Solu-Medrol -) 40 mg IVPB BID ON [facility] OF [facility] Last Admin: 04/25/18 09:11 Dose: 40 mg Metoprolol Tartrate (Lopressor -) 50 mg PO BID ON [facility] OF [facility] Last Admin: 04/25/18 09:12 Dose: 50 mg Ranitidine HCl (Zantac -) 150 mg PO DAILY ON [facility] Last Admin: 04/25/18 09:12 Dose: 150 mg Rosuvastatin Calcium (Crestor -) 20 mg PO HS ON LICENSE OF [facility] Last Admin: 04/24/18 21:30 Dose: 20 mg Tiotropium [place] (Spiriva Respimat) 2 puff IH DAILY ON [facility] OF [facility] Last Admin: 04/25/18 09:10 Dose: 2 puff - Objective Vital Signs: Vital Signs Temperature 97.3 F L 04/25/18 08:00 Pulse Rate 63 04/25/18 08:00 Respiratory Rate 22 H 04/25/18 08:00 Blood Pressure 162/90 04/25/18 08:00 O2 Sat by Pulse Oximetry (%) 100 04/25/18 08:00 Constitutional: Yes: Anxious Eyes: Yes: WNL HENT: Yes: WNL Neck: Yes: WNL Cardiovascular: Yes: Regular Rate and Rhythm Respiratory: Yes: Diminished, SOB Gastrointestinal: Yes: Soft ...Rectal Exam: Yes: Deferred Genitourinary: No: Anuria Breast(s): Yes: WNL Musculoskeletal: Yes: Muscle Weakness Extremities: Yes: Cool Edema: No Peripheral Pulses WNL: Yes Integumentary: Yes: WNL Neurological: Yes: WNL Psychiatric: Yes: Other (anxeity/depression) Labs: CBC, BMP 04/24/18 05:30 04/24/18 05:30 INR, PTT INR 1.03 (0.83-1.09) 04/24/18 05:30 Problem List - Problems (1) Lung mass Assessment/Plan: Lung mass wigh rib destruction: highly suspicious for cancer. Pt for biopsy.early next week. Discussed pt with Dr. Velazquez, her associate theatre professor. Antiplatelets held. Code(s): R91.8 - OTHER NONSPECIFIC ABNORMAL FINDING OF LUNG FIELD (2) ASHD (arteriosclerotic heart disease) Assessment/Plan: Hx ASHD--> coronary stents in 2007 DEenies chest pressure, but walking has been limited for years by exertional dyspnea. Stress MIBI 09/22/2015: no significant myocardial ischemia. Code(s): I25.10 - ATHSCL HEART DISEASE OF [place] CORONARY ARTERY W/O ANG PCTRS (3) COPD (chronic obstructive pulmonary disease) Code(s): J44.9 - CHRONIC OBSTRUCTIVE PULMONARY DISEASE, UNSPECIFIED Qualifiers: COPD type: unspecified COPD Qualified Code(s): J44.9 - Chronic obstructive pulmonary disease, unspecified (4) Cough Code(s): R05 - COUGH (5) HTN (hypertension) Assessment/Plan: On metoprolol Code(s): I10 - ESSENTIAL (PRIMARY) HYPERTENSION (6) Shortness of breath Assessment/Plan: COPD; lung mass. Awaits biopsy. Code(s): R06.02 - SHORTNESS OF BREATH (7) Diastolic CHF Code(s): I50.30 - UNSPECIFIED DIASTOLIC (CONGESTIVE) HEART FAILURE (8) Anxiety and depression Assessment/Plan: Pt cried repeatedly during today's consult, saying she is sad she may leave her grandson "all alone", and cannot help her daughtere, who is sick herself. Anxiolytics would be of benefit. Code(s): F41.9 - ANXIETY DISORDER, UNSPECIFIED; F32.9 - MAJOR DEPRESSIVE DISORDER, SINGLE EPISODE, UNSPECIFIED (9) Hyperlipidemia Assessment/Plan: on rosuvastatin Code(s): E78.5 - HYPERLIPIDEMIA, UNSPECIFIED (10) Hypothyroid Assessment/Plan: low TSH; free T4 WNL. Code(s): E03.9 - HYPOTHYROIDISM, UNSPECIFIED
--- NOTE | 2018-04-25 10:40 | PN ---
Progress Note, Physician Chief Complaint: still coughing but less wheezing; SOB with walking but not at rest d/w pt chest CT needs lung biopsy - pt agreed; ASA & Plavix stopped 04/22; d/w pt's grand son he agreed with plan - Current Medication List Current Medications: Active Medications Acetaminophen (Tylenol -) 650 mg PO Q6H PRN PRN Reason: PAIN Albuterol Sulfate (Ventolin 0.083% Nebulizer Soln -) 1 amp NEB Q4H PRN PRN Reason: SHORT OF BREATH/WHEEZING Last Admin: 04/23/18 20:00 Dose: 1 amp Alprazolam (Xanax -) 0.25 mg PO BID PRN PRN Reason: ANXIETY Guaifenesin (Robitussin -) 10 ml PO Q6H PRN PRN Reason: COUGH Last Admin: 04/25/18 09:11 Dose: 10 ml Levofloxacin (Levaquin 500 Mg Premixed Ivpb -) 500 mg in 100 mls @ 100 mls/hr IVPB DAILY@0800 [facility]; Protocol Last Admin: 04/25/18 09:58 Dose: 100 mls/hr Insulin Aspart (Novolog Vial Sliding Scale -) 1 vial SQ ACHS [facility]; Protocol Last Admin: 04/25/18 06:24 Dose: Not Given Methylprednisolone Sodium Succinate (Solu-Medrol -) 40 mg IVPB BID [facility] Last Admin: 04/25/18 09:11 Dose: 40 mg Metoprolol Tartrate (Lopressor -) 50 mg PO BID [facility] Last Admin: 04/25/18 09:12 Dose: 50 mg Ranitidine HCl (Zantac -) 150 mg PO DAILY [facility] Last Admin: 04/25/18 09:12 Dose: 150 mg Rosuvastatin Calcium (Crestor -) 20 mg PO HS [facility] Last Admin: 04/24/18 21:30 Dose: 20 mg Tiotropium [place] (Spiriva Respimat) 2 puff IH DAILY [facility] Last Admin: 04/25/18 09:10 Dose: 2 puff - Objective Vital Signs: Vital Signs Temperature 97.3 F L 04/25/18 08:00 Pulse Rate 63 04/25/18 08:00 Respiratory Rate 22 H 04/25/18 08:00 Blood Pressure 162/90 04/25/18 08:00 O2 Sat by Pulse Oximetry (%) 100 04/25/18 08:00 Constitutional: Yes: No Distress, Calm Eyes: Yes: Conjunctiva Clear HENT: Yes: Atraumatic Neck: Yes: Supple Cardiovascular: Yes: Regular Rate and Rhythm Respiratory: Yes: Wheezes (better) Gastrointestinal: Yes: Soft. No: Distention Genitourinary: No: CVA Tenderness - Left, CVA Tenderness - Right Musculoskeletal: No: Joint Stiffness, Joint Swelling Extremities: No: Cold, Cool, Cyanosis Edema: No Integumentary: No: Rash, Venous Stasis Changes Neurological: Yes: WNL, Alert, Oriented ...Motor Strength: WNL Psychiatric: Yes: WNL, Alert, Oriented. No: Agitated, Suicidal Ideation Labs: CBC, BMP 04/24/18 05:30 04/24/18 05:30 INR, PTT INR 1.03 (0.83-1.09) 04/24/18 05:30 - ....Imaging Other: Report Reviewed Assessment/Plan The patient is a 82 year old female with a significant PMH of hypertension, hyperlipidemia, ACS s/p myocardial infarction x 2, COPD, admitted with acute on chronic COPD exac; acute bronchitis / pneumonia; low PLT taper IV steroids; nebs, O2 IV antibiotics BP control pulmonary and cardiology f/u DVT pfx falls PFX chest CT c/w RUL mass invading 2 ribs, needs biopsy hold ASA and Plavix - IR and heme onc f/u d/w pt and staff
--- NOTE | 2018-04-25 11:05 | PN ---
Progress Note, Physician History of Present Illness: pulmonary alert,no distress,dyspnea improving - Current Medication List Current Medications: Active Medications Acetaminophen (Tylenol -) 650 mg PO Q6H PRN PRN Reason: PAIN Albuterol Sulfate (Ventolin 0.083% Nebulizer Soln -) 1 amp NEB Q4H PRN PRN Reason: SHORT OF BREATH/WHEEZING Last Admin: 04/23/18 20:00 Dose: 1 amp Alprazolam (Xanax -) 0.25 mg PO BID PRN PRN Reason: ANXIETY Guaifenesin (Robitussin -) 10 ml PO Q6H PRN PRN Reason: COUGH Last Admin: 04/25/18 09:11 Dose: 10 ml Levofloxacin (Levaquin 500 Mg Premixed Ivpb -) 500 mg in 100 mls @ 100 mls/hr IVPB DAILY@0800 [facility]; Protocol Last Admin: 04/25/18 09:58 Dose: 100 mls/hr Insulin Aspart (Novolog Vial Sliding Scale -) 1 vial SQ ACHS [facility]; Protocol Last Admin: 04/25/18 06:24 Dose: Not Given Methylprednisolone Sodium Succinate (Solu-Medrol -) 40 mg IVPB BID [facility] Last Admin: 04/25/18 09:11 Dose: 40 mg Metoprolol Tartrate (Lopressor -) 50 mg PO BID [facility] Last Admin: 04/25/18 09:12 Dose: 50 mg Ranitidine HCl (Zantac -) 150 mg PO DAILY [facility] Last Admin: 04/25/18 09:12 Dose: 150 mg Rosuvastatin Calcium (Crestor -) 20 mg PO HS [facility] Last Admin: 04/24/18 21:30 Dose: 20 mg Tiotropium [place] (Spiriva Respimat) 2 puff IH DAILY [facility] Last Admin: 04/25/18 09:10 Dose: 2 puff - Objective Vital Signs: Vital Signs Temperature 97.3 F L 04/25/18 08:00 Pulse Rate 63 04/25/18 08:00 Respiratory Rate 22 H 04/25/18 08:00 Blood Pressure 162/90 04/25/18 08:00 O2 Sat by Pulse Oximetry (%) 100 04/25/18 08:00 Constitutional: Yes: Calm, Thin Eyes: Yes: WNL HENT: Yes: WNL Neck: Yes: WNL Cardiovascular: Yes: Regular Rate and Rhythm, S1, S2 Respiratory: Yes: Rales (few crackles r base) Gastrointestinal: Yes: Normal Bowel Sounds, Soft Extremities: Yes: WNL Edema: No Labs: CBC, BMP Problem List - Problems (1) ASHD (arteriosclerotic heart disease) Code(s): I25.10 - ATHSCL HEART DISEASE OF [place] CORONARY ARTERY W/O ANG PCTRS (2) COPD (chronic obstructive pulmonary disease) Code(s): J44.9 - CHRONIC OBSTRUCTIVE PULMONARY DISEASE, UNSPECIFIED Qualifiers: COPD type: unspecified COPD Qualified Code(s): J44.9 - Chronic obstructive pulmonary disease, unspecified (3) Cough Code(s): R05 - COUGH (4) COPD exacerbation Code(s): J44.1 - CHRONIC OBSTRUCTIVE PULMONARY DISEASE W (ACUTE) EXACERBATION (5) HTN (hypertension) Code(s): I10 - ESSENTIAL (PRIMARY) HYPERTENSION (6) Elevated brain natriuretic peptide (BNP) level Code(s): R79.89 - OTHER SPECIFIED ABNORMAL FINDINGS OF BLOOD CHEMISTRY (7) Shortness of breath Code(s): R06.02 - SHORTNESS OF BREATH (8) Cough Code(s): R05 - COUGH Assessment/Plan IMP DYSPNEA IMPROVING COPD EXACERBATION ELEVATED BNP ? CHF ASHD S/P AK X 2 HTN HLD R CHEST WALL MASS PLAN STEROIDS INHALED BRONCHODILATORS O2 ABX IR FOR CT GUIDED BX R CHEST WALL MASS CHECK O2 SAT AT REST AND EXERCISE PRIOR TO DISCHARGE TO DETERMINE IF PT IS A CANDIDATE FOR HOME O2 DR CARDOSO Problem List - Problems (1) ASHD (arteriosclerotic heart disease) Code(s): I25.10 - ATHSCL HEART DISEASE OF [place] CORONARY ARTERY W/O ANG PCTRS (2) COPD (chronic obstructive pulmonary disease) Code(s): J44.9 - CHRONIC OBSTRUCTIVE PULMONARY DISEASE, UNSPECIFIED Qualifiers: COPD type: unspecified COPD Qualified Code(s): J44.9 - Chronic obstructive pulmonary disease, unspecified (3) Cough Code(s): R05 - COUGH (4) COPD exacerbation Code(s): J44.1 - CHRONIC OBSTRUCTIVE PULMONARY DISEASE W (ACUTE) EXACERBATION (5) HTN (hypertension) Code(s): I10 - ESSENTIAL (PRIMARY) HYPERTENSION (6) Elevated brain natriuretic peptide (BNP) level Code(s): R79.89 - OTHER SPECIFIED ABNORMAL FINDINGS OF BLOOD CHEMISTRY (7) Shortness of breath Code(s): R06.02 - SHORTNESS OF BREATH (8) Cough Code(s): R05 - COUGH
[2018-04-25 21:54] VITALS: BMI 18.1
[2018-04-25] MEDS: ROSUVASTATIN CA 20 MG TABLET (FP) PO SCH (22:17)
[2018-04-26] MEDS: INSULIN SLIDING SCALE (NOVOLOG) 1 VIAL SQ SCH ×4 (06:22→21:16)
[2018-04-26 07:18] LABS: BASO % 0.1 % (0-2.0); HEMATOCRIT 38.7 % (32.4-45.2); HEMOGLOBIN 12.5 GM/dL (10.7-15.3); LYMPH % 2.4 % (8-40); MCH 29.1 pg (25.7-33.7); MCHC 32.3 g/dl (32.0-36.0); MEAN CELL VOLUME 90.3 fl (80-96); MEAN PLT VOLUME 11.6 fl (7.5-11.1); MONO % 1.7 % (3.8-10.2); NEUT % 95.8 % (42.8-82.8); PLATELET COUNT 87 K/MM3 (134-434); RBC 4.29 M/mm3 (3.60-5.2); RDW 15.8 % (11.6-15.6); WHITE BLOOD COUNT 11.2 K/mm3 (4.0-10.0)
[2018-04-26 07:53] LABS: ANION GAP 9 MMOL/L (8-16); BLOOD UREA NITROGEN 31 mg/dL (7-18); CALCIUM 8.6 mg/dL (8.5-10.1); CHLORIDE 101 mmol/L (98-107); CO2 32 mmol/L (21-32); CREATININE 0.7 mg/dL (0.55-1.3); GLUCOSE,RANDOM 126 mg/dL (74-106); SODIUM 141 mmol/L (136-145)
[2018-04-26] MEDS ORDERED: PT OWN MED DRAWER 7, Y5N ONE (09:02)
[2018-04-26] MEDS: METOPROLOL TARTRATE 25 MG TABLET (FP) PO SCH ×2 (09:09→21:16)
[2018-04-26] MEDS: RANITIDINE HCL 150 MG TABLET (FP) PO SCH (09:09)
[2018-04-26] MEDS: methylPREDNISolone NA SUCC 40 MG/1 ML VIAL IVPB SCH ×2 (09:09→21:16)
[2018-04-26 11:54] LABS: ANISOCYTOSIS 1+; MACROCYTOSIS 0; PLATELET ESTIMATE DECREASED
--- NOTE | 2018-04-26 12:12 | PN ---
Progress Note, Physician Chief Complaint: OOB to chair feels better grand son at bedside seen by pulm and cardio, awaiting lung biopsy on Sunday - Current Medication List Current Medications: Active Medications Acetaminophen (Tylenol -) 650 mg PO Q6H PRN PRN Reason: PAIN Albuterol Sulfate (Ventolin 0.083% Nebulizer Soln -) 1 amp NEB Q4H PRN PRN Reason: SHORT OF BREATH/WHEEZING Last Admin: 04/23/18 20:00 Dose: 1 amp Alprazolam (Xanax -) 0.25 mg PO BID PRN PRN Reason: ANXIETY Guaifenesin (Robitussin -) 10 ml PO Q6H PRN PRN Reason: COUGH Last Admin: 04/25/18 09:11 Dose: 10 ml Insulin Aspart (Novolog Vial Sliding Scale -) 1 vial SQ [facility]; Protocol Last Admin: 04/26/18 06:22 Dose: Not Given Methylprednisolone Sodium Succinate (Solu-Medrol -) 40 mg IVPB BID [facility] Last Admin: 04/26/18 09:09 Dose: 40 mg Metoprolol Tartrate (Lopressor -) 50 mg PO BID [facility] Last Admin: 04/26/18 09:09 Dose: 50 mg Ranitidine HCl (Zantac -) 150 mg PO DAILY [facility] Last Admin: 04/26/18 09:09 Dose: 150 mg Rosuvastatin Calcium (Crestor -) 20 mg PO HS [facility] Last Admin: 04/25/18 22:17 Dose: 20 mg Tiotropium [place] (Spiriva Respimat) 2 puff IH DAILY [facility] Last Admin: 04/25/18 09:10 Dose: 2 puff - Objective Vital Signs: Vital Signs Temperature 97.9 F 04/26/18 06:33 Pulse Rate 53 L 04/26/18 06:33 Respiratory Rate 18 04/26/18 06:33 Blood Pressure 130/58 L 04/26/18 06:33 O2 Sat by Pulse Oximetry (%) 98 04/25/18 22:00 Constitutional: Yes: No Distress, Calm Eyes: Yes: Conjunctiva Clear HENT: Yes: Atraumatic Neck: Yes: Supple Cardiovascular: Yes: Regular Rate and Rhythm Respiratory: Yes: Rales Gastrointestinal: Yes: Soft. No: Distention Genitourinary: No: CVA Tenderness - Left, CVA Tenderness - Right, Hematuria Musculoskeletal: No: Joint Stiffness, Joint Swelling Extremities: No: Cold, Cool, Cyanosis Edema: No Integumentary: No: Rash, Venous Stasis Changes Neurological: Yes: WNL, Alert, Oriented ...Motor Strength: WNL Psychiatric: Yes: WNL, Alert, Oriented. No: Agitated, Suicidal Ideation Labs: CBC, BMP 04/26/18 06:00 04/26/18 06:00 INR, PTT INR 1.03 (0.83-1.09) 04/24/18 05:30 - ....Imaging Other: Report Reviewed Assessment/Plan The patient is a 82 year old female with a significant PMH of hypertension, hyperlipidemia, ACS s/p myocardial infarction x 2, COPD, admitted with acute on chronic COPD exac; acute bronchitis / pneumonia; low PLT BMI 18 c/w severe malnutrition (pt's weight currently 87, used to be 95-98 at baseline) pt said she went through a lot of stress recently (daughter and grand son ill) and she had no appetite b/o stress and anxiety taper IV steroids; nebs, O2 IV antibiotics BP control pulmonary and cardiology f/u DVT pfx falls PFX chest CT c/w RUL mass invading 2 ribs, needs biopsy hold ASA and Plavix - IR and heme onc f/u d/w pt and staff
--- NOTE | 2018-04-26 12:13 | PN ---
Progress Note (short form) - Note Progress Note: PULMONARY vss sitting oob to chair npo doesn't know why she can not eat Constitutional: Yes: Calm, Thin Eyes: Yes: WNL HENT: Yes: WNL Neck: Yes: WNL Cardiovascular: Yes: Regular Rate and Rhythm, S1, S2 Respiratory: Yes: Rales (few crackles r base) Gastrointestinal: Yes: Normal Bowel Sounds, Soft Extremities: Yes: WNL Edema: No meds/labs/images reviewed Problem List - Problems (1) ASHD (arteriosclerotic heart disease) Code(s): I25.10 - ATHSCL HEART DISEASE OF [place] CORONARY ARTERY W/O ANG PCTRS (2) COPD (chronic obstructive pulmonary disease) Code(s): J44.9 - CHRONIC OBSTRUCTIVE PULMONARY DISEASE, UNSPECIFIED Qualifiers: COPD type: unspecified COPD Qualified Code(s): J44.9 - Chronic obstructive pulmonary disease, unspecified (3) Cough Code(s): R05 - COUGH (4) COPD exacerbation Code(s): J44.1 - CHRONIC OBSTRUCTIVE PULMONARY DISEASE W (ACUTE) EXACERBATION (5) HTN (hypertension) Code(s): I10 - ESSENTIAL (PRIMARY) HYPERTENSION (6) Elevated brain natriuretic peptide (BNP) level Code(s): R79.89 - OTHER SPECIFIED ABNORMAL FINDINGS OF BLOOD CHEMISTRY (7) Shortness of breath Code(s): R06.02 - SHORTNESS OF BREATH (8) Cough Code(s): R05 - COUGH Assessment/Plan IMP COPD EXACERBATION RESOLVING ELEVATED BNP CHF ASHD S/P MN X 2 HTN HLD R CHEST WALL MASS PLAN STEROIDS INHALED BRONCHODILATORS O2 ABX IR FOR CT GUIDED BX R CHEST WALL MASS CHECK O2 SAT AT REST AND EXERCISE PRIOR TO DISCHARGE TO DETERMINE IF PT IS A CANDIDATE FOR HOME O2 Rashi CASTILLO MD
[2018-04-26] MEDS: TIOTROPIUM BROMIDE 2.5 MCG (SPIRIVA) RESPIMAT INHALER IH SCH (12:32)
--- NOTE | 2018-04-26 13:29 | PN ---
Progress Note (short form) - Note Progress Note: Patient seen and examined at bedside Awaiting lung biopsy Vital Signs Temperature 98.8 F 04/26/18 10:00 Pulse Rate 64 04/26/18 10:00 Respiratory Rate 17 04/26/18 10:00 Blood Pressure 134/54 L 04/26/18 10:00 O2 Sat by Pulse Oximetry (%) 98 04/26/18 10:00 Constitutional: Yes: Anxious, Thin HENT: Yes: Atraumatic Neck: Yes: Supple. No: Lymphadenopathy Cardiovascular: Yes: Regular Rate and Rhythm, S1, S2 Respiratory: Yes: Other (faint crackles bilaterally diminished breath sounds bilaterally) Gastrointestinal: Yes: Soft. No: Tenderness Musculoskeletal: Yes: WNL Extremities: No: Calf Tenderness No: Edema 04/26/18 04/26/18 06:00 06:00 WBC 11.2 H RBC 4.29 Hgb 12.5 Hct 38.7 MCV 90.3 MCHC 32.3 RDW 15.8 H Plt Count 87 L D Neutrophils % 95.8 H Lymphocytes % 2.4 L Monocytes % 1.7 L Eosinophils % 0.0 Basophils % 0.1 Sodium 141 Potassium 5.0 Chloride 101 Carbon Dioxide 32 Anion Gap 9 BUN 31 H Creatinine 0.7 04/19/18 16:35 Blood Culture - Final Blood - Peripheral Venous NO GROWTH AFTER 5 DAYS INCUBATION 04/19/18 16:35 Blood Culture - Final Blood - Peripheral Venous NO GROWTH AFTER 5 DAYS INCUBATION 04/19/18 18:29 Urine Culture - Final Urine - Urine Clean Catch NO GROWTH OBTAINED 82F with history of HTN CAD COPD who presents to the hospital with shortness of breath and productive cough found to have a right chest wall mass destructing the right lateral third and fourth ribs suspicious for malignancy Problem List: Acute exacerbation of COPD Right lung/chest wall mass HLD HTN CAD COPD Plan: Patient will need to have an image guided lung biopsy to have a tissue diagnosis this Sunday Patient is on plavix/aspirin last dose given 04/22 at 10AM for both. Suspicious for Lung Ca Based on tissue diagnosis patient will likely need staging with MRI brain. CT of the chest abdomen pelvis and PET scan. patient has expressed that she does not want surgery if she needs it Will follow
[2018-04-26] MEDS: ROSUVASTATIN CA 20 MG TABLET (FP) PO SCH (21:16)
[2018-04-27] MEDS: INSULIN SLIDING SCALE (NOVOLOG) 1 VIAL SQ SCH ×4 (06:14→22:02)
[2018-04-27] MEDS: METOPROLOL TARTRATE 25 MG TABLET (FP) PO SCH ×2 (09:52→21:55)
[2018-04-27] MEDS: methylPREDNISolone NA SUCC 40 MG/1 ML VIAL IVPB SCH ×2 (09:53→21:57)
[2018-04-27] MEDS: TIOTROPIUM BROMIDE 2.5 MCG (SPIRIVA) RESPIMAT INHALER IH SCH (09:53)
[2018-04-27] MEDS: RANITIDINE HCL 150 MG TABLET (FP) PO SCH (09:53)
[2018-04-27] MEDS ORDERED: INSULIN (NOVOLOG) ASPART 100 UNITS/ML 10ML VIAL ONE (11:19)
--- NOTE | 2018-04-27 13:17 | PN ---
Progress Note (short form) - Note Progress Note: PULMONARY Still some shortness of breath and cough with clear sputum. No fevers. Vital Signs Period Temp Pulse Resp BP Sys/[place]a Pulse Ox Last 24 Hr 97.3 F-98.2 F 58-71 18-20 135-153/57-74 100-100 Gen: NAD at rest Heart: RRR Lung: scattered rhonchi bilaterally Abd: soft, nontender Ext: no edema CBC, BMP 04/26/18 06:00 04/26/18 06:00 Active Medications Acetaminophen (Tylenol -) 650 mg PO Q6H PRN PRN Reason: PAIN Albuterol Sulfate (Ventolin 0.083% Nebulizer Soln -) 1 amp NEB Q4H PRN PRN Reason: SHORT OF BREATH/WHEEZING Last Admin: 04/23/18 20:00 Dose: 1 amp Alprazolam (Xanax -) 0.25 mg PO BID PRN PRN Reason: ANXIETY Guaifenesin (Robitussin -) 10 ml PO Q6H PRN PRN Reason: COUGH Last Admin: 04/25/18 09:11 Dose: 10 ml Insulin Aspart (Novolog Vial Sliding Scale -) 1 vial SQ ACHS [facility]; Protocol Last Admin: 04/27/18 11:38 Dose: 4 units Methylprednisolone Sodium Succinate (Solu-Medrol -) 40 mg IVPB BID [facility] Last Admin: 04/27/18 09:53 Dose: 40 mg Metoprolol Tartrate (Lopressor -) 50 mg PO BID [facility] Last Admin: 04/27/18 09:52 Dose: Not Given Ranitidine HCl (Zantac -) 150 mg PO DAILY [facility] Last Admin: 04/27/18 09:53 Dose: 150 mg Rosuvastatin [place] (Crestor -) 20 mg PO HS [facility] Last Admin: 04/26/18 21:16 Dose: 20 mg Tiotropium [place] (Spiriva Respimat) 2 puff IH DAILY [facility] Last Admin: 04/27/18 09:53 Dose: 2 puff A/P Acute COPD Exacerbation Chest Wall Mass likely Malignant CAD HTN Hyperlipidemia - continue medrol at current dose - inhaled bronchodilators - O2 to keep SpO2 >90% - for CT guided needle biopsy - holding ASA, plavix
--- NOTE | 2018-04-27 14:26 | PN ---
Progress Note, Physician Chief Complaint: stable no new c/o; still coughing; GAY - Current Medication List Current Medications: Active Medications Acetaminophen (Tylenol -) 650 mg PO Q6H PRN PRN Reason: PAIN Albuterol Sulfate (Ventolin 0.083% Nebulizer Soln -) 1 amp NEB Q4H PRN PRN Reason: SHORT OF BREATH/WHEEZING Last Admin: 04/23/18 20:00 Dose: 1 amp Alprazolam (Xanax -) 0.25 mg PO BID PRN PRN Reason: ANXIETY Guaifenesin (Robitussin -) 10 ml PO Q6H PRN PRN Reason: COUGH Last Admin: 04/25/18 09:11 Dose: 10 ml Insulin Aspart (Novolog Vial Sliding Scale -) 1 vial SQ [facility]; Protocol Last Admin: 04/27/18 11:38 Dose: 4 units Methylprednisolone Sodium Succinate (Solu-Medrol -) 40 mg IVPB BID [facility] Last Admin: 04/27/18 09:53 Dose: 40 mg Metoprolol Tartrate (Lopressor -) 50 mg PO BID [facility] Last Admin: 04/27/18 09:52 Dose: Not Given Ranitidine HCl (Zantac -) 150 mg PO DAILY [facility] Last Admin: 04/27/18 09:53 Dose: 150 mg Rosuvastatin Calcium (Crestor -) 20 mg PO HS [facility] Last Admin: 04/26/18 21:16 Dose: 20 mg Tiotropium [place] (Spiriva Respimat) 2 puff IH DAILY [facility] Last Admin: 04/27/18 09:53 Dose: 2 puff - Objective Vital Signs: Vital Signs Temperature 98.0 F 04/27/18 14:00 Pulse Rate 75 04/27/18 14:00 Respiratory Rate 18 04/27/18 14:00 Blood Pressure 156/66 04/27/18 14:00 O2 Sat by Pulse Oximetry (%) 100 04/26/18 21:38 Constitutional: Yes: No Distress, Calm Eyes: Yes: Conjunctiva Clear HENT: Yes: Atraumatic Neck: Yes: Supple Cardiovascular: Yes: Regular Rate and Rhythm Respiratory: Yes: Wheezes Gastrointestinal: Yes: Soft. No: Distention Genitourinary: No: CVA Tenderness - Left, CVA Tenderness - Right Musculoskeletal: No: Joint Stiffness, Joint Swelling Extremities: No: Cold, Cool, Cyanosis Edema: No Integumentary: No: Rash, Venous Stasis Changes Neurological: Yes: WNL, Alert, Oriented ...Motor Strength: WNL Psychiatric: Yes: WNL, Alert, Oriented. No: Agitated Labs: CBC, BMP 04/26/18 06:00 04/26/18 06:00 INR, PTT INR 1.03 (0.83-1.09) 04/24/18 05:30 - ....Imaging Other: Report Reviewed Assessment/Plan The patient is a 82 year old female with a significant PMH of hypertension, hyperlipidemia, ACS s/p myocardial infarction x 2, COPD, admitted with acute on chronic COPD exac; acute bronchitis / pneumonia; low PLT BMI 18 c/w severe malnutrition (pt's weight currently 87, used to be 95-98 at baseline) IV steroids; nebs, O2 BP control pulmonary and cardiology f/u DVT pfx falls PFX chest CT c/w RUL mass invading 2 ribs, for biopsy on sunday; off ASA & Plavix d/w pt and staff
--- NOTE | 2018-04-27 15:04 | PN ---
Progress Note, Physician Chief Complaint: Pt A&Ox3; almost no pain now at [facility] biopsy site; still c/o cough, with difficulty bringing up phlegm. History of Present Illness: The patient is an 82 year old white female, accompanied by grandson, with a significant PMH of hypertension, hyperlipidemia, ACS s/p myocardial infarction x 2 (s/p coronary angiogram with ? PCI 2006), COPD (quit cigarettes many years ago), who presents to the emergency department with 2 weeks of worsening shortness of breath and productive cough with yellow-clear sputum. The patient states that 3 weeks ago she was started on Z-Farhad antibiotics for cold-like symptoms by Dr. Mary Beth Stein. The patient reports initial relief of her symptoms. However, she states since finishing the antibiotics she has had worsening shortness of breath on exertion and has a persistent productive cough with yellow/clear sputum. She has used inhalers at home for the shortness of breath with mild relief. Received her flu shot earlier today. The patient denies chest pain, headache and dizziness. Denies fever, chills, nausea, vomit, diarrhea and constipation. Denies dysuria, frequency, urgency and hematuria. Past Medical/Surgical Hx of relevance CAD s/p [place] on aspirin and plavix HTN HL advanced COPD Hyperlipidemia Hypertension PAD 2006 [place] in 2006--> 2 coronary stents at [facility] by Dr. Ba (she stopped smoking then) Stress MIBI 2016: no ischemia. Allergies: NKA Social history: Former smoker PCP: Dr Mary Beth Stein - Current Medication List Current Medications: Active Medications Acetaminophen (Tylenol -) 650 mg PO Q6H PRN PRN Reason: PAIN Albuterol Sulfate (Ventolin 0.083% Nebulizer Soln -) 1 amp NEB Q4H PRN PRN Reason: SHORT OF BREATH/WHEEZING Last Admin: 04/23/18 20:00 Dose: 1 amp Alprazolam (Xanax -) 0.25 mg PO BID PRN PRN Reason: ANXIETY Guaifenesin (Robitussin -) 10 ml PO Q6H PRN PRN Reason: COUGH Last Admin: 04/25/18 09:11 Dose: 10 ml Insulin Aspart (Novolog Vial Sliding Scale -) 1 vial SQ [facility]; Protocol Last Admin: 04/27/18 11:38 Dose: 4 units Methylprednisolone Sodium Succinate (Solu-Medrol -) 40 mg IVPB BID [facility] Last Admin: 04/27/18 09:53 Dose: 40 mg Metoprolol Tartrate (Lopressor -) 50 mg PO BID [facility] Last Admin: 04/27/18 09:52 Dose: Not Given Ranitidine HCl (Zantac -) 150 mg PO DAILY [facility] Last Admin: 04/27/18 09:53 Dose: 150 mg Rosuvastatin Calcium (Crestor -) 20 mg PO HS [facility] Last Admin: 04/26/18 21:16 Dose: 20 mg Tiotropium [place] (Spiriva Respimat) 2 puff IH DAILY [facility] Last Admin: 04/27/18 09:53 Dose: 2 puff - Objective Vital Signs: Vital Signs Temperature 98.0 F 04/27/18 14:00 Pulse Rate 75 04/27/18 14:00 Respiratory Rate 18 04/27/18 14:00 Blood Pressure 156/66 04/27/18 14:00 O2 Sat by Pulse Oximetry (%) 100 04/26/18 21:38 Constitutional: Yes: Anxious, Thin Eyes: Yes: WNL HENT: Yes: WNL Neck: Yes: WNL Cardiovascular: Yes: S1, S2, S4 Respiratory: Yes: Diminished, SOB Gastrointestinal: Yes: Soft ...Rectal Exam: Yes: Deferred Genitourinary: No: Anuria Breast(s): Yes: WNL Musculoskeletal: Yes: Muscle Weakness Extremities: Yes: Cool Edema: No Peripheral Pulses WNL: Yes Integumentary: Yes: WNL Neurological: Yes: Alert, Oriented Psychiatric: Yes: Alert, Oriented Labs: CBC, BMP 04/26/18 06:00 04/26/18 06:00 INR, PTT INR 1.03 (0.83-1.09) 04/24/18 05:30 Abnormal Lab Results 05/01/18 05/01/18 06:10 06:10 WBC 16.5 H MCHC 31.7 L RDW 16.3 H Plt Count 109 L Absolute Neuts (auto) 14.8 H Neutrophils % 90.2 H Neutrophils % (Manual) 86.0 H Lymphocytes % 4.0 L D Lymphocytes % (Manual) 6.0 L D Anion Gap 6 L BUN 39 H Random Glucose 60 L Calcium 8.4 L Total Protein 5.2 L Albumin 2.8 L Problem List - Problems (1) Lung mass Assessment/Plan: Lung mass with rib destruction. Await lung biopsy Code(s): R91.8 - OTHER NONSPECIFIC ABNORMAL FINDING OF LUNG FIELD (2) ASHD (arteriosclerotic heart disease) Assessment/Plan: Hx ASHD/[place]--> coronary stents in 2006 Denies chest pressure, but walking has been limited for years by exertional dyspnea. Stress MIBI 09/22/2015: no significant myocardial ischemia. Code(s): I25.10 - ATHSCL HEART DISEASE OF [place] CORONARY ARTERY W/O ANG PCTRS (3) COPD (chronic obstructive pulmonary disease) Assessment/Plan: On Spiriva, Ventolin, Solumedrol. Code(s): J44.9 - CHRONIC OBSTRUCTIVE PULMONARY DISEASE, UNSPECIFIED Qualifiers: COPD type: unspecified COPD Qualified Code(s): J44.9 - Chronic obstructive pulmonary disease, unspecified (4) Cough Code(s): R05 - COUGH (5) HTN (hypertension) Assessment/Plan: On metoprolol Consider adding ACEI or ARB (HTN; DM). Code(s): I10 - ESSENTIAL (PRIMARY) HYPERTENSION (6) Shortness of breath Assessment/Plan: COPD; lung mass. Awaits CT-guided needle lung biopsy. Code(s): R06.02 - SHORTNESS OF BREATH (7) Diastolic CHF Code(s): I50.30 - UNSPECIFIED DIASTOLIC (CONGESTIVE) HEART FAILURE (8) Anxiety and depression Assessment/Plan: Pt cried repeatedly during admission consult, saying she is sad she may leave her grandson "all alone", and cannot help her daughter, who is sick herself. Anxiolytics would be of benefit (on Xanax). Code(s): F41.9 - ANXIETY DISORDER, UNSPECIFIED; F32.9 - MAJOR DEPRESSIVE DISORDER, SINGLE EPISODE, UNSPECIFIED (9) Hyperlipidemia Assessment/Plan: on rosuvastatin Code(s): E78.5 - HYPERLIPIDEMIA, UNSPECIFIED (10) Hypothyroid Assessment/Plan: low TSH; free T4 WNL. Code(s): E03.9 - HYPOTHYROIDISM, UNSPECIFIED
--- NOTE | 2018-04-27 17:12 | PN ---
Progress Note, Physician Chief Complaint: Pt A&Ox3; still with productive cough. History of Present Illness: The patient is a 82 year old white female, accompanied by son, with a significant PMH of hypertension, hyperlipidemia, ACS s/p myocardial infarction x 2 (s/p coronary angiogram with ? PCI 2008), COPD (quit cigarettes many years ago) who presents to the emergency department with 1.5 weeks of worsening shortness of breath and productive cough with yellow-clear sputum. The patient states that 3 weeks ago she was started on Z-Farhad antibiotics for cold-like symptoms by Dr. Mary Beth Stein. The patient reports initial relief of her symptoms. However, she states since finishing the antibiotics she has had worsening shortness of breath on exertion and has a persistent productive cough with yellow/clear sputum. The patient states she has used inhalers at home for the shortness of breath with mild relief. The patient states she received her flu shot earlier today. The patient denies chest pain, headache and dizziness. Denies fever, chills, nausea, vomit, diarrhea and constipation. Denies dysuria, frequency, urgency and hematuria. Past Medical/Surgical Hx of relevance CAD s/p [place] on aspirin and plavix HTN HL advanced COPD Hyperlipidemia Hypertension PAD 2006 [place] in 2006--> 2 coronary stents at [facility] by Dr. Ba (she stopped smoking then) Allergies: NKA Social history: Former smoker PCP: Dr Mary Beth Stein - Current Medication List Current Medications: Active Medications Acetaminophen (Tylenol -) 650 mg PO Q6H PRN PRN Reason: PAIN Albuterol Sulfate (Ventolin 0.083% Nebulizer Soln -) 1 amp NEB Q4H PRN PRN Reason: SHORT OF BREATH/WHEEZING Last Admin: 04/23/18 20:00 Dose: 1 amp Alprazolam (Xanax -) 0.25 mg PO BID PRN PRN Reason: ANXIETY Guaifenesin (Robitussin -) 10 ml PO Q6H PRN PRN Reason: COUGH Last Admin: 04/25/18 09:11 Dose: 10 ml Insulin Aspart (Novolog Vial Sliding Scale -) 1 vial SQ [facility]; Protocol Last Admin: 04/27/18 16:32 Dose: Not Given Methylprednisolone Sodium Succinate (Solu-Medrol -) 40 mg IVPB BID [facility] Last Admin: 04/27/18 09:53 Dose: 40 mg Metoprolol Tartrate (Lopressor -) 50 mg PO BID [facility] Last Admin: 04/27/18 09:52 Dose: Not Given Ranitidine HCl (Zantac -) 150 mg PO DAILY [facility] Last Admin: 04/27/18 09:53 Dose: 150 mg Rosuvastatin Calcium (Crestor -) 20 mg PO HS [facility] Last Admin: 04/26/18 21:16 Dose: 20 mg Tiotropium [place] (Spiriva Respimat) 2 puff IH DAILY [facility] Last Admin: 04/27/18 09:53 Dose: 2 puff - Objective Vital Signs: Vital Signs Temperature 98.0 F 04/27/18 14:00 Pulse Rate 75 04/27/18 14:00 Respiratory Rate 18 04/27/18 14:00 Blood Pressure 156/66 04/27/18 14:00 O2 Sat by Pulse Oximetry (%) 100 04/26/18 21:38 Constitutional: Yes: Calm Eyes: Yes: WNL HENT: Yes: WNL Neck: Yes: WNL Cardiovascular: Yes: S1, S2, S4 Respiratory: Yes: Diminished, SOB on Exertion Gastrointestinal: Yes: Soft ...Rectal Exam: Yes: Deferred Genitourinary: No: Anuria Musculoskeletal: Yes: Muscle Weakness Extremities: Yes: Cool Edema: No Peripheral Pulses WNL: Yes Neurological: Yes: Alert, Oriented Psychiatric: Yes: Other (ANXIETY/depression) Labs: CBC, BMP 04/26/18 06:00 04/26/18 06:00 INR, PTT INR 1.03 (0.83-1.09) 04/24/18 05:30 - ....Imaging Other: Image Reviewed (telemetry: NSR) Problem List - Problems (1) Lung mass Assessment/Plan: Lung mass with rib destruction: highly suspicious for cancer. Pt for biopsy this Sunday. Discussed pt with Dr. Velazquez, her bioprocess development engineer. Antiplatelets held. Code(s): R91.8 - OTHER NONSPECIFIC ABNORMAL FINDING OF LUNG FIELD (2) ASHD (arteriosclerotic heart disease) Assessment/Plan: Hx ASHD--> coronary stents in 2006 Denies chest pressure, but walking has been limited for years by exertional dyspnea. Stress MIBI 09/22/2015: no significant myocardial ischemia. Code(s): I25.10 - ATHSCL HEART DISEASE OF [place] CORONARY ARTERY W/O ANG PCTRS (3) COPD (chronic obstructive pulmonary disease) Assessment/Plan: On Spiriva, Ventolin, Solumedrol. Code(s): J44.9 - CHRONIC OBSTRUCTIVE PULMONARY DISEASE, UNSPECIFIED Qualifiers: COPD type: unspecified COPD Qualified Code(s): J44.9 - Chronic obstructive pulmonary disease, unspecified (4) Cough Code(s): R05 - COUGH (5) HTN (hypertension) Assessment/Plan: On metoprolol Consider adding ACEI or ARB (HTN; DM). Code(s): I10 - ESSENTIAL (PRIMARY) HYPERTENSION (6) Shortness of breath Assessment/Plan: COPD; lung mass. Awaits biopsy. Code(s): R06.02 - SHORTNESS OF BREATH (7) Diastolic CHF Code(s): I50.30 - UNSPECIFIED DIASTOLIC (CONGESTIVE) HEART FAILURE (8) Anxiety and depression Assessment/Plan: Pt cried repeatedly during admission consult, saying she is sad she may leave her grandson "all alone", and cannot help her daughter, who is sick herself. Anxiolytics would be of benefit. Code(s): F41.9 - ANXIETY DISORDER, UNSPECIFIED; F32.9 - MAJOR DEPRESSIVE DISORDER, SINGLE EPISODE, UNSPECIFIED (9) Hyperlipidemia Assessment/Plan: on rosuvastatin Code(s): E78.5 - HYPERLIPIDEMIA, UNSPECIFIED (10) Hypothyroid Assessment/Plan: low TSH; free T4 WNL. Code(s): E03.9 - HYPOTHYROIDISM, UNSPECIFIED
[2018-04-27] MEDS: ROSUVASTATIN CA 20 MG TABLET (FP) PO SCH (21:55)
[2018-04-28] MEDS: INSULIN SLIDING SCALE (NOVOLOG) 1 VIAL SQ SCH ×4 (06:27→21:58)
[2018-04-28 08:04] LABS: HEMATOCRIT 40.7 % (32.4-45.2); HEMOGLOBIN 13.4 GM/dL (10.7-15.3); LYMPH % 2.5 % (8-40); MCH 29.9 pg (25.7-33.7); MCHC 32.8 g/dl (32.0-36.0); MEAN CELL VOLUME 91.3 fl (80-96); MONO % 3.1 % (3.8-10.2); NEUT % 94.4 % (42.8-82.8); PLATELET COUNT 98 K/MM3 (134-434); RBC 4.46 M/mm3 (3.60-5.2); RDW 15.9 % (11.6-15.6); WHITE BLOOD COUNT 11.5 K/mm3 (4.0-10.0)
--- NOTE | 2018-04-28 08:18 | PN ---
Progress Note, Physician Chief Complaint: no breathing changes but had some blodd in urine when urinated once this am will watch closely check UA and abdomen CT and eval d/w pt and staff - Current Medication List Current Medications: Active Medications Acetaminophen (Tylenol -) 650 mg PO Q6H PRN PRN Reason: PAIN Albuterol Sulfate (Ventolin 0.083% Nebulizer Soln -) 1 amp NEB Q4H PRN PRN Reason: SHORT OF BREATH/WHEEZING Last Admin: 04/23/18 20:00 Dose: 1 amp Alprazolam (Xanax -) 0.25 mg PO BID PRN PRN Reason: ANXIETY Guaifenesin (Robitussin -) 10 ml PO Q6H PRN PRN Reason: COUGH Last Admin: 04/25/18 09:11 Dose: 10 ml Insulin Aspart (Novolog Vial Sliding Scale -) 1 vial SQ [facility]; Protocol Last Admin: 04/28/18 06:27 Dose: Not Given Methylprednisolone Sodium Succinate (Solu-Medrol -) 40 mg IVPB BID [facility] Last Admin: 04/27/18 21:57 Dose: 40 mg Metoprolol Tartrate (Lopressor -) 50 mg PO BID [facility] Last Admin: 04/27/18 21:55 Dose: 50 mg Ranitidine HCl (Zantac -) 150 mg PO DAILY [facility] Last Admin: 04/27/18 09:53 Dose: 150 mg Rosuvastatin Calcium (Crestor -) 20 mg PO HS [facility] Last Admin: 04/27/18 21:55 Dose: 20 mg Tiotropium [place] (Spiriva Respimat) 2 puff IH DAILY [facility] Last Admin: 04/27/18 09:53 Dose: 2 puff - Objective Vital Signs: Vital Signs Temperature 97.9 F 04/28/18 05:42 Pulse Rate 60 04/28/18 05:42 Respiratory Rate 18 04/28/18 05:42 Blood Pressure 138/89 04/28/18 05:42 O2 Sat by Pulse Oximetry (%) 95 04/27/18 19:38 Constitutional: Yes: No Distress, Calm Eyes: Yes: Conjunctiva Clear HENT: Yes: Atraumatic Neck: Yes: Supple Cardiovascular: Yes: Regular Rate and Rhythm Respiratory: Yes: Rhonchi Gastrointestinal: Yes: Soft. No: Tenderness Genitourinary: No: CVA Tenderness - Left, CVA Tenderness - Right Musculoskeletal: No: Joint Stiffness, Joint Swelling Extremities: No: Cold, Cool, Cyanosis Edema: No Integumentary: No: Rash, Venous Stasis Changes Neurological: Yes: WNL, Alert, Oriented ...Motor Strength: WNL Psychiatric: Yes: WNL, Alert, Oriented. No: Agitated, Suicidal Ideation Labs: CBC, BMP 04/28/18 07:49 INR, PTT INR 1.03 (0.83-1.09) 04/24/18 05:30 - ....Imaging Other: Report Reviewed Assessment/Plan The patient is a 82 year old female with a significant PMH of hypertension, hyperlipidemia, ACS s/p myocardial infarction x 2, COPD, admitted with acute on chronic COPD exac; acute bronchitis / pneumonia; low PLT BMI 18 c/w severe malnutrition (pt's weight currently 87, used to be 95-98 at baseline) IV steroids; nebs, O2 BP control pulmonary and cardiology f/u DVT pfx falls PFX chest CT c/w RUL mass invading 2 ribs, for biopsy on sunday; off ASA & Plavix new painless hematuria: eval; abdomen pelvic CT d/w pt and staff
[2018-04-28 08:53] LABS: ALBUMIN 2.8 g/dl (3.4-5.0); ALK PHOS 50 U/L (45-117); ANION GAP 7 MMOL/L (8-16); BILIRUBIN,TOTAL 0.4 mg/dL (0.2-1); BLOOD UREA NITROGEN 35 mg/dL (7-18); CALCIUM 8.8 mg/dL (8.5-10.1); CHLORIDE 102 mmol/L (98-107); CO2 34 mmol/L (21-32); CREATININE 0.7 mg/dL (0.55-1.3); GLUCOSE,RANDOM 102 mg/dL (74-106); POTASSIUM 5.1 mmol/L (3.5-5.1); SGOT/AST 38 U/L (15-37); SGPT/ALT 50 U/L (13-61); SODIUM 143 mmol/L (136-145); TOT PROT 5.3 g/dl (6.4-8.2)
[2018-04-28] MEDS ORDERED: PT OWN MED DRAWER 7, Y5N ONE (09:38)
[2018-04-28] MEDS: TIOTROPIUM BROMIDE 2.5 MCG (SPIRIVA) RESPIMAT INHALER IH SCH (09:39)
[2018-04-28] MEDS: METOPROLOL TARTRATE 25 MG TABLET (FP) PO SCH ×2 (09:39→21:57)
[2018-04-28] MEDS: RANITIDINE HCL 150 MG TABLET (FP) PO SCH (09:39)
[2018-04-28] MEDS: methylPREDNISolone NA SUCC 40 MG/1 ML VIAL IVPB SCH ×2 (09:39→21:57)
[2018-04-28 10:09] LABS: ANISOCYTOSIS 2+; MACROCYTOSIS 0; OVALOCYTE 1+; PLATELET ESTIMATE DECREASED
--- NOTE | 2018-04-28 12:06 | PN ---
Progress Note (short form) - Note Progress Note: PULMONARY Still some shortness of breath and cough with clear sputum but improving. No fevers. Vital Signs Period Temp Pulse Resp BP Sys/[place]a Pulse Ox Last 24 Hr 97.4 F-98.8 F 60-78 18-20 138-156/64-89 95-98 Gen: NAD at rest Heart: RRR Lung: scattered rhonchi bilaterally Abd: soft, nontender Ext: no edema CBC, BMP 04/28/18 07:49 04/28/18 07:49 Active Medications Acetaminophen (Tylenol -) 650 mg PO Q6H PRN PRN Reason: PAIN Albuterol Sulfate (Ventolin 0.083% Nebulizer Soln -) 1 amp NEB Q4H PRN PRN Reason: SHORT OF BREATH/WHEEZING Last Admin: 04/23/18 20:00 Dose: 1 amp Alprazolam (Xanax -) 0.25 mg PO BID PRN PRN Reason: ANXIETY Guaifenesin (Robitussin -) 10 ml PO Q6H PRN PRN Reason: COUGH Last Admin: 04/25/18 09:11 Dose: 10 ml Insulin Aspart (Novolog Vial Sliding Scale -) 1 vial SQ [facility]; Protocol Last Admin: 04/28/18 11:49 Dose: Not Given Methylprednisolone Sodium Succinate (Solu-Medrol -) 40 mg IVPB BID [facility] Last Admin: 04/28/18 09:39 Dose: 40 mg Metoprolol Tartrate (Lopressor -) 50 mg PO BID [facility] Last Admin: 04/28/18 09:39 Dose: 50 mg Ranitidine HCl (Zantac -) 150 mg PO DAILY [facility] Last Admin: 04/28/18 09:39 Dose: 150 mg Rosuvastatin Calcium (Crestor -) 20 mg PO HS [facility] Last Admin: 04/27/18 21:55 Dose: 20 mg Tiotropium [place] (Spiriva Respimat) 2 puff IH DAILY [facility] Last Admin: 04/28/18 09:39 Dose: 2 puff A/P Acute COPD Exacerbation Chest Wall Mass likely Malignant CAD HTN Hyperlipidemia - continue medrol at current dose, can change to PO prednisone after biopsy - inhaled bronchodilators - O2 to keep SpO2 >90% - for CT guided needle biopsy - holding ASA, plavix
[2018-04-28 17:20] LABS: URINE APPEARANCE SLCLOUDY; URINE BILIRUBIN NEGATIVE (<2.0 mg/dL); URINE COLOR DKYELLOW; URINE GLUCOSE (UA) NEGATIVE (NEGATIVE); URINE KETONE NEGATIVE (NEGATIVE); URINE LEUK ESTERASE NEGATIVE (NEGATIVE); URINE NITRITE NEGATIVE (NEGATIVE); URINE PROTEIN 2+ (NEGATIVE); URINE UROBILINOGEN NEGATIVE mg/dL (0.2-1.0)
[2018-04-28] MEDS: ROSUVASTATIN CA 20 MG TABLET (FP) PO SCH (21:57)
--- NOTE | 2018-04-28 22:04 | PN ---
Progress Note, Physician Chief Complaint: Pt A&Ox3; occasional sharp chest pain when she coughs. History of Present Illness: The patient is an 82 year old white female, accompanied by son, with a significant PMH of hypertension, hyperlipidemia, ACS s/p myocardial infarction x 2 (s/p coronary angiogram with ? PCI 2006), COPD (quit cigarettes many years ago), who presents to the emergency department with 2 weeks of worsening shortness of breath and productive cough with yellow-clear sputum. The patient states that 3 weeks ago she was started on Z-Farhad antibiotics for cold-like symptoms by Dr. Mary Beth Stein. The patient reports initial relief of her symptoms. However, she states since finishing the antibiotics she has had worsening shortness of breath on exertion and has a persistent productive cough with yellow/clear sputum. She has used inhalers at home for the shortness of breath with mild relief. Received her flu shot earlier today. The patient denies chest pain, headache and dizziness. Denies fever, chills, nausea, vomit, diarrhea and constipation. Denies dysuria, frequency, urgency and hematuria. Past Medical/Surgical Hx of relevance CAD s/p [place] on aspirin and plavix HTN HL advanced COPD Hyperlipidemia Hypertension PAD 2006 [place] in 2006--> 2 coronary stents at [facility] by Dr. Ba (she stopped smoking then) Stress MIBI 2016: no ischemia. Allergies: NKA Social history: Former smoker PCP: Dr Mary Beth Stein - Current Medication List Current Medications: Active Medications Acetaminophen (Tylenol -) 650 mg PO Q6H PRN PRN Reason: PAIN Albuterol Sulfate (Ventolin 0.083% Nebulizer Soln -) 1 amp NEB Q4H PRN PRN Reason: SHORT OF BREATH/WHEEZING Last Admin: 04/23/18 20:00 Dose: 1 amp Alprazolam (Xanax -) 0.25 mg PO BID PRN PRN Reason: ANXIETY Guaifenesin (Robitussin -) 10 ml PO Q6H PRN PRN Reason: COUGH Last Admin: 04/25/18 09:11 Dose: 10 ml Insulin Aspart (Novolog Vial Sliding Scale -) 1 vial SQ [facility]; Protocol Last Admin: 04/28/18 21:58 Dose: Not Given Methylprednisolone Sodium Succinate (Solu-Medrol -) 40 mg IVPB BID [facility] Last Admin: 04/28/18 21:57 Dose: 40 mg Metoprolol Tartrate (Lopressor -) 50 mg PO BID [facility] Last Admin: 04/28/18 21:57 Dose: 50 mg Ranitidine HCl (Zantac -) 150 mg PO DAILY [facility] Last Admin: 04/28/18 09:39 Dose: 150 mg Rosuvastatin [place] (Crestor -) 20 mg PO HS [facility] Last Admin: 04/28/18 21:57 Dose: 20 mg Tiotropium [place] (Spiriva Respimat) 2 puff IH DAILY [facility] Last Admin: 04/28/18 09:39 Dose: 2 puff - Objective Vital Signs: Vital Signs Temperature 98.2 F 04/28/18 18:00 Pulse Rate 71 04/28/18 18:00 Respiratory Rate 18 04/28/18 20:20 Blood Pressure 156/74 04/28/18 18:00 O2 Sat by Pulse Oximetry (%) 95 04/28/18 20:20 Constitutional: Yes: Anxious Eyes: Yes: WNL HENT: Yes: WNL Neck: Yes: WNL Cardiovascular: Yes: Regular Rate and Rhythm, S4 Respiratory: Yes: Regular, Diminished, SOB on Exertion, Tachypnea Gastrointestinal: Yes: Soft ...Rectal Exam: Yes: Deferred Genitourinary: No: Anuria Musculoskeletal: Yes: Muscle Weakness Extremities: Yes: Cool Edema: No Peripheral Pulses WNL: No Peripheral Pulses: Left Doralis Pedis: 1+, Right Dorsalis Pedis: 1+ Integumentary: Yes: WNL Neurological: Yes: Alert, Oriented, Weakness Psychiatric: Yes: Other Labs: CBC, BMP 04/28/18 07:49 04/28/18 07:49 INR, PTT INR 1.03 (0.83-1.09) 04/24/18 05:30 Problem List - Problems (1) Lung mass Assessment/Plan: Lung mass with rib destruction: highly suspicious for cancer. Pt for biopsy this Sunday. Antiplatelets held. Code(s): R91.8 - OTHER NONSPECIFIC ABNORMAL FINDING OF LUNG FIELD (2) ASHD (arteriosclerotic heart disease) Assessment/Plan: Hx ASHD/[place]--> coronary stents in 2006 Denies chest pressure, but walking has been limited for years by exertional dyspnea. Stress MIBI 09/22/2015: no significant myocardial ischemia. Code(s): I25.10 - ATHSCL HEART DISEASE OF [place] CORONARY ARTERY W/O ANG PCTRS (3) COPD (chronic obstructive pulmonary disease) Assessment/Plan: On Spiriva, Ventolin, Solumedrol. Code(s): J44.9 - CHRONIC OBSTRUCTIVE PULMONARY DISEASE, UNSPECIFIED Qualifiers: COPD type: unspecified COPD Qualified Code(s): J44.9 - Chronic obstructive pulmonary disease, unspecified (4) Cough Code(s): R05 - COUGH (5) HTN (hypertension) Assessment/Plan: On metoprolol Consider adding ACEI or ARB (HTN; DM). Code(s): I10 - ESSENTIAL (PRIMARY) HYPERTENSION (6) Shortness of breath Assessment/Plan: COPD; lung mass. Awaits CT-guided needle lung biopsy. Code(s): R06.02 - SHORTNESS OF BREATH (7) Diastolic CHF Code(s): I50.30 - UNSPECIFIED DIASTOLIC (CONGESTIVE) HEART FAILURE (8) Anxiety and depression Assessment/Plan: Pt cried repeatedly during admission consult, saying she is sad she may leave her grandson "all alone", and cannot help her daughter, who is sick herself. Anxiolytics would be of benefit (on Xanax). Code(s): F41.9 - ANXIETY DISORDER, UNSPECIFIED; F32.9 - MAJOR DEPRESSIVE DISORDER, SINGLE EPISODE, UNSPECIFIED (9) Hyperlipidemia Assessment/Plan: on rosuvastatin Code(s): E78.5 - HYPERLIPIDEMIA, UNSPECIFIED (10) Hypothyroid Assessment/Plan: low TSH; free T4 WNL. Code(s): E03.9 - HYPOTHYROIDISM, UNSPECIFIED
[2018-04-29 06:25] LABS: BASO % 0.3 % (0-2.0); HEMATOCRIT 38.3 % (32.4-45.2); HEMOGLOBIN 12.3 GM/dL (10.7-15.3); LYMPH % 2.3 % (8-40); MCH 29.3 pg (25.7-33.7); MCHC 32.2 g/dl (32.0-36.0); MEAN CELL VOLUME 91.2 fl (80-96); MEAN PLT VOLUME 10.8 fl (7.5-11.1); MONO % 2.4 % (3.8-10.2); PLATELET COUNT 89 K/MM3 (134-434); WHITE BLOOD COUNT 13.7 K/mm3 (4.0-10.0)
[2018-04-29] MEDS: INSULIN SLIDING SCALE (NOVOLOG) 1 VIAL SQ SCH ×4 (06:41→22:51)
[2018-04-29 06:57] LABS: ALBUMIN 2.8 g/dl (3.4-5.0); ALK PHOS 47 U/L (45-117); ANION GAP 8 MMOL/L (8-16); BILIRUBIN,TOTAL 0.4 mg/dL (0.2-1); BLOOD UREA NITROGEN 38 mg/dL (7-18); CALCIUM 8.4 mg/dL (8.5-10.1); CHLORIDE 104 mmol/L (98-107); CO2 30 mmol/L (21-32); CREATININE 0.7 mg/dL (0.55-1.3); GLUCOSE,RANDOM 125 mg/dL (74-106); POTASSIUM 4.8 mmol/L (3.5-5.1); SGOT/AST 33 U/L (15-37); SGPT/ALT 58 U/L (13-61); SODIUM 142 mmol/L (136-145); TOT PROT 5.3 g/dl (6.4-8.2)
--- NOTE | 2018-04-29 09:31 | PN ---
Progress Note, Physician Chief Complaint: OOB to chair less cough less SOB no hematuria - Current Medication List Current Medications: Active Medications Acetaminophen (Tylenol -) 650 mg PO Q6H PRN PRN Reason: PAIN Albuterol Sulfate (Ventolin 0.083% Nebulizer Soln -) 1 amp NEB Q4H PRN PRN Reason: SHORT OF BREATH/WHEEZING Last Admin: 04/23/18 20:00 Dose: 1 amp Alprazolam (Xanax -) 0.25 mg PO BID PRN PRN Reason: ANXIETY Guaifenesin (Robitussin -) 10 ml PO Q6H PRN PRN Reason: COUGH Last Admin: 04/25/18 09:11 Dose: 10 ml Insulin Aspart (Novolog Vial Sliding Scale -) 1 vial SQ [facility]; Protocol Last Admin: 04/29/18 06:41 Dose: Not Given Methylprednisolone Sodium Succinate (Solu-Medrol -) 40 mg IVPB BID [facility] Last Admin: 04/28/18 21:57 Dose: 40 mg Metoprolol Tartrate (Lopressor -) 50 mg PO BID [facility] Last Admin: 04/28/18 21:57 Dose: 50 mg Ranitidine HCl (Zantac -) 150 mg PO DAILY [facility] Last Admin: 04/28/18 09:39 Dose: 150 mg Rosuvastatin Calcium (Crestor -) 20 mg PO HS [facility] Last Admin: 04/28/18 21:57 Dose: 20 mg Tiotropium [place] (Spiriva Respimat) 2 puff IH DAILY [facility] Last Admin: 04/28/18 09:39 Dose: 2 puff - Objective Vital Signs: Vital Signs Temperature 98.6 F 04/29/18 08:42 Pulse Rate 63 04/29/18 08:42 Respiratory Rate 19 04/29/18 08:42 Blood Pressure 140/68 04/29/18 08:42 O2 Sat by Pulse Oximetry (%) 95 04/28/18 20:20 Constitutional: Yes: No Distress, Calm Eyes: Yes: Conjunctiva Clear HENT: Yes: Atraumatic Neck: Yes: Supple Cardiovascular: Yes: Regular Rate and Rhythm Respiratory: Yes: Rales Gastrointestinal: Yes: Soft. No: Distention Genitourinary: No: CVA Tenderness - Left, CVA Tenderness - Right Musculoskeletal: No: Joint Stiffness, Joint Swelling Extremities: No: Cold, Cool Edema: No Integumentary: No: Rash, Venous Stasis Changes Neurological: Yes: WNL, Alert, Oriented ...Motor Strength: WNL Psychiatric: Yes: WNL, Alert, Oriented. No: Agitated, Suicidal Ideation Labs: CBC, BMP 04/29/18 06:00 04/29/18 06:00 INR, PTT INR 1.03 (0.83-1.09) 04/24/18 05:30 - ....Imaging Other: Report Reviewed Assessment/Plan The patient is a 82 year old female with a significant PMH of hypertension, hyperlipidemia, ACS s/p myocardial infarction x 2, COPD, admitted with acute on chronic COPD exac; acute bronchitis / pneumonia; low PLT BMI 18 c/w severe malnutrition (pt's weight currently 87, used to be 95-98 at baseline) IV steroids; nebs, O2 BP control pulmonary and cardiology f/u DVT pfx falls PFX chest CT c/w RUL mass invading 2 ribs, for biopsy today; off ASA & Plavix new painless hematuria: eval; abdomen pelvic CT d/w pt and staff
[2018-04-29] MEDS ORDERED: PT OWN MED DRAWER 7, Y5N ONE (09:50)
[2018-04-29] MEDS: RANITIDINE HCL 150 MG TABLET (FP) PO SCH (09:52)
[2018-04-29] MEDS: methylPREDNISolone NA SUCC 40 MG/1 ML VIAL IVPB SCH ×2 (09:52→22:52)
[2018-04-29] MEDS: METOPROLOL TARTRATE 25 MG TABLET (FP) PO SCH ×2 (09:52→22:50)
[2018-04-29] MEDS: TIOTROPIUM BROMIDE 2.5 MCG (SPIRIVA) RESPIMAT INHALER IH SCH (09:52)
[2018-04-29 10:23] LABS: ANISOCYTOSIS 1+; MACROCYTOSIS 0; OVALOCYTE 1+; PLATELET ESTIMATE DECREASED
--- NOTE | 2018-04-29 13:12 | PN ---
Progress Note, Physician History of Present Illness: 82 year old female with PMH significant for hypertension, hyperlipidemia, CAD s/ p myocardial infarction x 2, COPD admitted with COPD exacerbation, ruled out for acute coronary syndrome but found to have elevated BNP. Patient with recent PNA treated with azithromycin 3 weeks prior to admission. She had improvement of symptoms but once antibiotics were stopped, her shortness of breath and productive yellow to clear sputum. Patient also complains of shortness of breath with lying flat which she noticed 1 week prior to admission. Sleeps with hospital bed at an incline of approximately 30 degrees due to shortness of breath. Denies any lh, dizziness, chest pain, palpitations, orthopnea, PND or NICCI. 100% compliant with cardiac medications. Past Medical/Surgical Hx of relevance CAD s/p LA on aspirin and plavix HTN HL advanced COPD Hyperlipidemia Hypertension PAD 2006 LA in 2006--> 2 coronary stents at [facility] by Dr. Ba (she stopped smoking then) - Current Medication List Current Medications: Active Medications Acetaminophen (Tylenol -) 650 mg PO Q6H PRN PRN Reason: PAIN Albuterol Sulfate (Ventolin 0.083% Nebulizer Soln -) 1 amp NEB Q4H PRN PRN Reason: SHORT OF BREATH/WHEEZING Last Admin: 04/23/18 20:00 Dose: 1 amp Alprazolam (Xanax -) 0.25 mg PO BID PRN PRN Reason: ANXIETY Guaifenesin (Robitussin -) 10 ml PO Q6H PRN PRN Reason: COUGH Last Admin: 04/25/18 09:11 Dose: 10 ml Insulin Aspart (Novolog Vial Sliding Scale -) 1 vial SQ [facility]; Protocol Last Admin: 04/29/18 11:44 Dose: Not Given Methylprednisolone Sodium Succinate (Solu-Medrol -) 40 mg IVPB BID [facility] Last Admin: 04/29/18 09:52 Dose: 40 mg Metoprolol Tartrate (Lopressor -) 50 mg PO BID [facility] Last Admin: 04/29/18 09:52 Dose: 50 mg Ranitidine HCl (Zantac -) 150 mg PO DAILY [facility] Last Admin: 04/29/18 09:52 Dose: 150 mg Rosuvastatin Calcium (Crestor -) 20 mg PO HS [facility] Last Admin: 04/28/18 21:57 Dose: 20 mg Tiotropium [place] (Spiriva Respimat) 2 puff IH DAILY [facility] Last Admin: 04/29/18 09:52 Dose: 2 puff - Objective Vital Signs: Vital Signs Temperature 98.6 F 04/29/18 08:42 Pulse Rate 65 04/29/18 12:15 Respiratory Rate 27 H 04/29/18 12:15 Blood Pressure 184/83 H 04/29/18 12:15 O2 Sat by Pulse Oximetry (%) 98 04/29/18 12:15 Eyes: Yes: WNL, Conjunctiva Clear, EOM Intact HENT: Yes: WNL, Atraumatic, Normocephalic Neck: Yes: WNL, Supple, Trachea Midline Cardiovascular: Yes: WNL, Regular Rate and Rhythm Respiratory: Yes: WNL, Regular, CTA Bilaterally Gastrointestinal: Yes: WNL, Normal Bowel Sounds Genitourinary: Yes: WNL Musculoskeletal: Yes: WNL Extremities: Yes: WNL Edema: No Integumentary: Yes: WNL Neurological: Yes: WNL, Alert, Oriented ...Motor Strength: WNL Psychiatric: Yes: WNL Labs: CBC, BMP 04/29/18 06:00 04/29/18 06:00 INR, PTT INR 1.03 (0.83-1.09) 04/24/18 05:30 Problem List - Problems (1) ASHD (arteriosclerotic heart disease) Code(s): I25.10 - ATHSCL HEART DISEASE OF [place] CORONARY ARTERY W/O ANG PCTRS (2) COPD (chronic obstructive pulmonary disease) Code(s): J44.9 - CHRONIC OBSTRUCTIVE PULMONARY DISEASE, UNSPECIFIED Qualifiers: COPD type: unspecified COPD Qualified Code(s): J44.9 - Chronic obstructive pulmonary disease, unspecified (3) COPD exacerbation Code(s): J44.1 - CHRONIC OBSTRUCTIVE PULMONARY DISEASE W (ACUTE) EXACERBATION (4) Cough Code(s): R05 - COUGH (5) Cough Code(s): R05 - COUGH (6) Elevated brain natriuretic peptide (BNP) level Code(s): R79.89 - OTHER SPECIFIED ABNORMAL FINDINGS OF BLOOD CHEMISTRY (7) HTN (hypertension) Code(s): I10 - ESSENTIAL (PRIMARY) HYPERTENSION (8) Shortness of breath Code(s): R06.02 - SHORTNESS OF BREATH (9) Hematoma Code(s): T14.8XXA - OTHER INJURY OF UNSPECIFIED BODY REGION, INITIAL ENCOUNTER Assessment/Plan - Problems (1) Lung mass Assessment/Plan: Lung mass with rib destruction: highly suspicious for cancer. Pt for biopsy this Sunday. Antiplatelets held. Code(s): R91.8 - OTHER NONSPECIFIC ABNORMAL FINDING OF LUNG FIELD (2) ASHD (arteriosclerotic heart disease) Assessment/Plan: Hx ASHD/LA--> coronary stents in 2006 Denies chest pressure, but walking has been limited for years by exertional dyspnea. Stress MIBI 09/22/2015: no significant myocardial ischemia. Code(s): I25.10 - ATHSCL HEART DISEASE OF [place] CORONARY ARTERY W/O ANG PCTRS (3) COPD (chronic obstructive pulmonary disease) Assessment/Plan: On Spiriva, Ventolin, Solumedrol. Code(s): J44.9 - CHRONIC OBSTRUCTIVE PULMONARY DISEASE, UNSPECIFIED Qualifiers: COPD type: unspecified COPD Qualified Code(s): J44.9 - Chronic obstructive pulmonary disease, unspecified (4) Cough Code(s): R05 - COUGH (5) HTN (hypertension) Assessment/Plan: On metoprolol Consider adding ACEI or ARB (HTN; DM). Code(s): I10 - ESSENTIAL (PRIMARY) HYPERTENSION (6) Shortness of breath Assessment/Plan: COPD; lung mass. Awaits CT-guided needle lung biopsy. Code(s): R06.02 - SHORTNESS OF BREATH (7) Diastolic CHF Code(s): I50.30 - UNSPECIFIED DIASTOLIC (CONGESTIVE) HEART FAILURE (8) Anxiety and depression Assessment/Plan: Pt cried repeatedly during admission consult, saying she is sad she may leave her grandson "all alone", and cannot help her daughter, who is sick herself. Anxiolytics would be of benefit (on Xanax). Code(s): F41.9 - ANXIETY DISORDER, UNSPECIFIED; F32.9 - MAJOR DEPRESSIVE DISORDER, SINGLE EPISODE, UNSPECIFIED (9) Hyperlipidemia Assessment/Plan: on rosuvastatin Code(s): E78.5 - HYPERLIPIDEMIA, UNSPECIFIED (10) Hypothyroid Assessment/Plan: low TSH; free T4 WNL. Code(s): E03.9 - HYPOTHYROIDISM, UNSPECIFIED
--- NOTE | 2018-04-29 14:53 | PN ---
Progress Note (short form) - Note Progress Note: S/P IR guided biopsy. No teresa-procedural events. Intake & Output 04/26/18 04/27/18 04/28/18 04/29/18 23:59 23:59 23:59 23:59 Intake Total 1362 800 450 Output Total 1 1 Balance 1362 800 449 -1 Last Vital Signs Temp Pulse Resp BP Pulse Ox 98.6 F 65 27 H 184/83 H 98 04/29/18 08:42 04/29/18 12:15 04/29/18 12:15 04/29/18 12:15 04/29/18 12:15 Active Medications Acetaminophen (Tylenol -) 650 mg PO Q6H PRN PRN Reason: PAIN Albuterol Sulfate (Ventolin 0.083% Nebulizer Soln -) 1 amp NEB Q4H PRN PRN Reason: SHORT OF BREATH/WHEEZING Last Admin: 04/23/18 20:00 Dose: 1 amp Alprazolam (Xanax -) 0.25 mg PO BID PRN PRN Reason: ANXIETY Guaifenesin (Robitussin -) 10 ml PO Q6H PRN PRN Reason: COUGH Last Admin: 04/25/18 09:11 Dose: 10 ml Insulin Aspart (Novolog Vial Sliding Scale -) 1 vial SQ [facility]; Protocol Last Admin: 04/29/18 11:44 Dose: Not Given Methylprednisolone Sodium Succinate (Solu-Medrol -) 40 mg IVPB BID [facility] Last Admin: 04/29/18 09:52 Dose: 40 mg Metoprolol Tartrate (Lopressor -) 50 mg PO BID [facility] Last Admin: 04/29/18 09:52 Dose: 50 mg Ranitidine HCl (Zantac -) 150 mg PO DAILY [facility] Last Admin: 04/29/18 09:52 Dose: 150 mg Rosuvastatin Calcium (Crestor -) 20 mg PO HS [facility] Last Admin: 04/28/18 21:57 Dose: 20 mg Tiotropium [place] (Spiriva Respimat) 2 puff IH DAILY [facility] Last Admin: 04/29/18 09:52 Dose: 2 puff Gen: NAD at rest Heart: RRR Lung: scattered rhonchi bilaterally Abd: soft, nontender Ext: no edema Laboratory Results - last 24 hr 04/28/18 04/28/18 04/28/18 16:33 17:44 21:41 WBC RBC Hgb Hct MCV MCH MCHC RDW Plt Count MPV Absolute Neuts (auto) Neutrophils % Neutrophils % (Manual) Band Neutrophils % Lymphocytes % Lymphocytes % (Manual) Monocytes % Monocytes % (Manual) Eosinophils % Eosinophils % (Manual) Basophils % Basophils % (Manual) Myelocytes % (Man) Promyelocytes % (Man) Blast Cells % (Manual) Nucleated RBC % Metamyelocytes Hypochromia Platelet Estimate Polychromasia Poikilocytosis Anisocytosis Microcytosis Macrocytosis Spherocytes Ovalocytes [place] Cells Sodium Potassium Chloride Carbon Dioxide Anion Gap BUN Creatinine Creat Clearance w eGFR POC Glucometer 196 136 Random Glucose Calcium Total Bilirubin AST ALT Alkaline Phosphatase Total Protein Albumin Urine Color Dkyellow Urine Appearance Slcloudy Urine pH 5.0 Ur Specific [place] 1.026 Urine Protein 2+ H Urine Glucose (UA) Negative Urine Ketones Negative Urine Blood 3+ H Urine Nitrite Negative Urine Bilirubin Negative Urine Urobilinogen Negative Ur Leukocyte Esterase Negative Urine WBC (Auto) None Urine RBC (Auto) <1 04/29/18 04/29/18 04/29/18 06:00 06:00 06:40 WBC 13.7 H RBC 4.20 Hgb 12.3 Hct 38.3 MCV 91.2 MCH 29.3 MCHC 32.2 RDW 16.0 H Plt Count 89 L MPV 10.8 Absolute Neuts (auto) 13.1 H Neutrophils % 95.0 H Neutrophils % (Manual) 97.0 H Band Neutrophils % 1.0 Lymphocytes % 2.3 L Lymphocytes % (Manual) 2.0 L D Monocytes % 2.4 L Monocytes % (Manual) 0 L D Eosinophils % 0.0 Eosinophils % (Manual) 0.0 Basophils % 0.3 D Basophils % (Manual) 0.0 Myelocytes % (Man) 0 Promyelocytes % (Man) 0 Blast Cells % (Manual) 0 Nucleated RBC % 0 Metamyelocytes 0 Hypochromia 0 Platelet Estimate Decreased Polychromasia 0 Poikilocytosis 1+ Anisocytosis 1+ Microcytosis 0 Macrocytosis 0 Spherocytes 1+ Ovalocytes 1+ [place] Cells 1+ Sodium 142 Potassium 4.8 Chloride 104 Carbon Dioxide 30 Anion Gap 8 BUN 38 H Creatinine 0.7 Creat Clearance w eGFR > 60 POC Glucometer 119 Random Glucose 125 H Calcium 8.4 L Total Bilirubin 0.4 AST 33 ALT 58 Alkaline Phosphatase 47 Total Protein 5.3 L Albumin 2.8 L Urine Color Urine Appearance Urine pH Ur Specific [place] Urine Protein Urine Glucose (UA) Urine Ketones Urine Blood Urine Nitrite Urine Bilirubin Urine Urobilinogen Ur Leukocyte Esterase Urine WBC (Auto) Urine RBC (Auto) 04/29/18 11:10 WBC RBC Hgb Hct MCV MCH MCHC RDW Plt Count MPV Absolute Neuts (auto) Neutrophils % Neutrophils % (Manual) Band Neutrophils % Lymphocytes % Lymphocytes % (Manual) Monocytes % Monocytes % (Manual) Eosinophils % Eosinophils % (Manual) Basophils % Basophils % (Manual) Myelocytes % (Man) Promyelocytes % (Man) Blast Cells % (Manual) Nucleated RBC % Metamyelocytes Hypochromia Platelet Estimate Polychromasia Poikilocytosis Anisocytosis Microcytosis Macrocytosis Spherocytes Ovalocytes [place] Cells Sodium Potassium Chloride Carbon Dioxide Anion Gap BUN Creatinine Creat Clearance w eGFR POC Glucometer 110 Random Glucose Calcium Total Bilirubin AST ALT Alkaline Phosphatase Total Protein Albumin Urine Color Urine Appearance Urine pH Ur Specific [place] Urine Protein Urine Glucose (UA) Urine Ketones Urine Blood Urine Nitrite Urine Bilirubin Urine Urobilinogen Ur Leukocyte Esterase Urine WBC (Auto) Urine RBC (Auto) A/P Acute COPD Exacerbation Chest Wall Mass likely Malignant CAD HTN Hyperlipidemia - Will change to Prednisone in AM - inhaled bronchodilators - O2 to keep SpO2 >90% - Follow biopsy results Dr Carlos
[2018-04-29] MEDS ORDERED: INSULIN (NOVOLOG) ASPART 100 UNITS/ML 10ML VIAL ONE ×2 (18:12→20:32)
--- NOTE | 2018-04-29 18:17 | CON.GU ---
Consult - History of Present Illness History of Present Illness: 82 yo female admitte with COPD and found to have lung mass. Two episodes of painless gross heme during the hospitalization. No prior history. Denies any flank pain. CT shows 8mm nonobstructing rt proximal ureteral stone - Past Medical History Cardio/Vascular: Yes: CAD, CHF, HTN Pulmonary: Yes: COPD - Alcohol/Substance Use Hx Alcohol Use: No History of Substance Use: reports: None - Smoking History Smoking history: Former smoker Have you smoked in the past 12 months: No If you are a former smoker, when did you quit?: 11 years ago - Social History ADL: Independent History of Recent Travel: No Home Medications - Allergies Allergies/Adverse Reactions: Allergies Allergy/AdvReac Type Severity Reaction Status Date / Time No Known Allergies Allergy Verified 04/19/18 14:12 - Home Medications Home Medications: Ambulatory Orders Aspirin [ASA -] 81 mg PO DAILY 07/18/16 Clopidogrel Bisulfate [Plavix -] 75 mg PO DAILY 07/18/16 Metoprolol Tartrate 25 mg PO BID 07/18/16 Rosuvastatin Calcium [Crestor] 20 mg PO HS 07/18/16 Review of Systems - Review of Systems Genitourinary: reports: Hematuria Physical Exam- Vital Signs: Vital Signs Temperature 98.4 F 04/29/18 15:53 Pulse Rate 67 04/29/18 15:53 Respiratory Rate 20 04/29/18 15:53 Blood Pressure 137/61 04/29/18 15:53 O2 Sat by Pulse Oximetry (%) 98 04/29/18 12:15 Renal/: Yes: Hematuria Labs: CBC, BMP 04/29/18 06:00 04/29/18 06:00 Imaging - Results Cat Scan: Report Reviewed Problem List - Problems (1) Right ureteral calculus Assessment/Plan: in light of stone size, decreased probability of spontaneous passage. Since pt asymptomatic with normal creatinine, may give a short trial of conservative management, otherwise if fails to pass stone, will need lithotripsy Code(s): N20.1 - CALCULUS OF URETER
[2018-04-29] MEDS: ROSUVASTATIN CA 20 MG TABLET (FP) PO SCH (22:50)
[2018-04-30] MEDS: INSULIN SLIDING SCALE (NOVOLOG) 1 VIAL SQ SCH ×4 (06:51→21:23)
[2018-04-30 07:27] LABS: BASO % 0.4 % (0-2.0); HEMATOCRIT 42.6 % (32.4-45.2); HEMOGLOBIN 13.5 GM/dL (10.7-15.3); MCH 29.1 pg (25.7-33.7); MCHC 31.8 g/dl (32.0-36.0); MEAN CELL VOLUME 91.6 fl (80-96); MEAN PLT VOLUME 10.7 fl (7.5-11.1); MONO % 2.6 % (3.8-10.2); PLATELET COUNT 111 K/MM3 (134-434); RBC 4.65 M/mm3 (3.60-5.2); RDW 16.1 % (11.6-15.6); WHITE BLOOD COUNT 17.6 K/mm3 (4.0-10.0)
[2018-04-30 07:51] LABS: ALBUMIN 3.2 g/dl (3.4-5.0); ALK PHOS 53 U/L (45-117); ANION GAP 9 MMOL/L (8-16); BILIRUBIN,TOTAL 0.7 mg/dL (0.2-1); BLOOD UREA NITROGEN 37 mg/dL (7-18); CALCIUM 8.8 mg/dL (8.5-10.1); CHLORIDE 104 mmol/L (98-107); CO2 31 mmol/L (21-32); CREATININE 0.7 mg/dL (0.55-1.3); GLUCOSE,RANDOM 109 mg/dL (74-106); POTASSIUM 5.1 mmol/L (3.5-5.1); SGOT/AST 26 U/L (15-37); SGPT/ALT 63 U/L (13-61); SODIUM 143 mmol/L (136-145); TOT PROT 5.9 g/dl (6.4-8.2)
[2018-04-30] MEDS ORDERED: PT OWN MED DRAWER 7, Y5N ONE (08:59)
[2018-04-30] MEDS: methylPREDNISolone NA SUCC 40 MG/1 ML VIAL IVPB SCH (09:02)
[2018-04-30] MEDS: TIOTROPIUM BROMIDE 2.5 MCG (SPIRIVA) RESPIMAT INHALER IH SCH (09:02)
[2018-04-30] MEDS: RANITIDINE HCL 150 MG TABLET (FP) PO SCH (09:03)
[2018-04-30] MEDS: METOPROLOL TARTRATE 25 MG TABLET (FP) PO SCH ×2 (09:04→21:23)
[2018-04-30 10:26] LABS: ANISOCYTOSIS 1+; MACROCYTOSIS 1+; OVALOCYTE 1+; PLATELET ESTIMATE DECREASED
--- NOTE | 2018-04-30 12:01 | PN ---
Progress Note, Physician Chief Complaint: feels well no new c/o s/p R lung biopsy, occasional R chest pain mild, no SOB CXR no pneumo seen by ; R renal stones - Current Medication List Current Medications: Active Medications Acetaminophen (Tylenol -) 650 mg PO Q6H PRN PRN Reason: PAIN Last Admin: 04/30/18 09:03 Dose: 650 mg Albuterol Sulfate (Ventolin 0.083% Nebulizer Soln -) 1 amp NEB Q4H PRN PRN Reason: SHORT OF BREATH/WHEEZING Last Admin: 04/23/18 20:00 Dose: 1 amp Alprazolam (Xanax -) 0.25 mg PO BID PRN PRN Reason: ANXIETY Guaifenesin (Robitussin -) 10 ml PO Q6H PRN PRN Reason: COUGH Last Admin: 04/25/18 09:11 Dose: 10 ml Insulin Aspart (Novolog Vial Sliding Scale -) [address] [facility]; Protocol Last Admin: 04/30/18 06:51 Dose: Not Given Methylprednisolone Sodium Succinate (Solu-Medrol -) 40 mg IVPB BID [facility] Last Admin: 04/30/18 09:02 Dose: 40 mg Metoprolol Tartrate (Lopressor -) 50 mg PO BID [facility] Last Admin: 04/30/18 09:04 Dose: 50 mg Ranitidine HCl (Zantac -) 150 mg PO DAILY [facility] Last Admin: 04/30/18 09:03 Dose: 150 mg Rosuvastatin Calcium (Crestor -) 20 mg PO HS [facility] Last Admin: 04/29/18 22:50 Dose: 20 mg Tiotropium [place] (Spiriva Respimat) 2 puff IH DAILY [facility] Last Admin: 04/30/18 09:02 Dose: 2 puff - Objective Vital Signs: Vital Signs Temperature 97.5 F L 04/30/18 08:45 Pulse Rate 65 04/30/18 08:45 Respiratory Rate 18 04/30/18 08:45 Blood Pressure 120/51 L 04/30/18 08:45 O2 Sat by Pulse Oximetry (%) 97 04/29/18 22:00 Constitutional: Yes: No Distress, Calm Eyes: Yes: Conjunctiva Clear HENT: Yes: Atraumatic Neck: Yes: Supple Cardiovascular: Yes: Regular Rate and Rhythm Respiratory: Yes: Rales Gastrointestinal: Yes: Soft. No: Distention Genitourinary: No: CVA Tenderness - Left, CVA Tenderness - Right, Hematuria Musculoskeletal: No: Joint Stiffness, Joint Swelling Extremities: No: Cold, Cool, Cyanosis Edema: No Integumentary: No: Rash, Venous Stasis Changes Neurological: Yes: WNL, Alert, Oriented ...Motor Strength: WNL Psychiatric: Yes: WNL, Alert, Oriented. No: Agitated, Suicidal Ideation Labs: CBC, BMP 04/30/18 06:15 04/30/18 06:15 INR, PTT INR 1.03 (0.83-1.09) 04/24/18 05:30 - ....Imaging Other: Report Reviewed Assessment/Plan The patient is a 82 year old female with a significant PMH of hypertension, hyperlipidemia, ACS s/p myocardial infarction x 2, COPD, admitted with acute on chronic COPD exac; acute bronchitis / pneumonia; low PLT BMI 18 c/w severe malnutrition (pt's weight currently 87, used to be 95-98 at baseline) IV steroids; nebs, O2 BP control pulmonary and cardiology f/u DVT pfx falls PFX chest CT c/w RUL mass invading 2 ribs, s/p biopsy today; off ASA & Plavix CXR no pneumo new painless hematuria: f/u, renal stones d/w pt and staff check O2 sat/RA restart ASA & Plavix when OK with IR
--- NOTE | 2018-04-30 12:33 | PN ---
Progress Note (short form) - Note Progress Note: Feels ok to day. No acute events overnight. No CP or SOB. Intake & Output 04/27/18 04/28/18 04/29/18 04/30/18 23:59 23:59 23:59 23:59 Intake Total 800 450 50 0 Output Total 1 1 Balance 800 449 49 0 Last Vital Signs Temp Pulse Resp BP Pulse Ox 97.5 F L 65 18 120/51 L 97 04/30/18 08:45 04/30/18 08:45 04/30/18 08:45 04/30/18 08:45 04/29/18 22:00 Active Medications Acetaminophen (Tylenol -) 650 mg PO Q6H PRN PRN Reason: PAIN Last Admin: 04/30/18 09:03 Dose: 650 mg Albuterol Sulfate (Ventolin 0.083% Nebulizer Soln -) 1 amp NEB Q4H PRN PRN Reason: SHORT OF BREATH/WHEEZING Last Admin: 04/23/18 20:00 Dose: 1 amp Alprazolam (Xanax -) 0.25 mg PO BID PRN PRN Reason: ANXIETY Guaifenesin (Robitussin -) 10 ml PO Q6H PRN PRN Reason: COUGH Last Admin: 04/25/18 09:11 Dose: 10 ml Insulin Aspart (Novolog Vial Sliding Scale -) 1 vial SQ [facility]; Protocol Last Admin: 04/30/18 06:51 Dose: Not Given Methylprednisolone Sodium Succinate (Solu-Medrol -) 40 mg IVPB BID [facility] Last Admin: 04/30/18 09:02 Dose: 40 mg Metoprolol Tartrate (Lopressor -) 50 mg PO BID [facility] Last Admin: 04/30/18 09:04 Dose: 50 mg Ranitidine HCl (Zantac -) 150 mg PO DAILY [facility] Last Admin: 04/30/18 09:03 Dose: 150 mg Rosuvastatin Calcium (Crestor -) 20 mg PO HS [facility] Last Admin: 04/29/18 22:50 Dose: 20 mg Tiotropium [place] (Spiriva Respimat) 2 puff IH DAILY [facility] Last Admin: 04/30/18 09:02 Dose: 2 puff Gen: NAD at rest Heart: RRR Lung: scattered rhonchi bilaterally Abd: soft, nontender Ext: no edema Laboratory Results - last 24 hr 04/29/18 04/29/18 04/29/18 17:27 17:28 22:49 WBC RBC Hgb Hct MCV MCH MCHC RDW Plt Count MPV Absolute Neuts (auto) Neutrophils % Neutrophils % (Manual) Band Neutrophils % Lymphocytes % Lymphocytes % (Manual) Monocytes % Monocytes % (Manual) Eosinophils % Eosinophils % (Manual) Basophils % Basophils % (Manual) Myelocytes % (Man) Promyelocytes % (Man) Blast Cells % (Manual) Nucleated RBC % Metamyelocytes Hypochromia Platelet Estimate Polychromasia Poikilocytosis Anisocytosis Microcytosis Macrocytosis Ovalocytes Sodium Potassium Chloride Carbon Dioxide Anion Gap BUN Creatinine Creat Clearance w eGFR POC Glucometer 301 297 84 Random Glucose Calcium Total Bilirubin AST ALT Alkaline Phosphatase Total Protein Albumin 04/30/18 04/30/18 04/30/18 06:15 06:15 06:50 WBC 17.6 H RBC 4.65 Hgb 13.5 Hct 42.6 MCV 91.6 MCH 29.1 MCHC 31.8 L RDW 16.1 H Plt Count 111 L D MPV 10.7 Absolute Neuts (auto) 16.7 H Neutrophils % 95.0 H Neutrophils % (Manual) 95.0 H Band Neutrophils % 0.0 Lymphocytes % 2.0 L Lymphocytes % (Manual) 2.0 L Monocytes % 2.6 L Monocytes % (Manual) 3 L D Eosinophils % 0.0 Eosinophils % (Manual) 0.0 Basophils % 0.4 Basophils % (Manual) 0.0 Myelocytes % (Man) 0 Promyelocytes % (Man) 0 Blast Cells % (Manual) 0 Nucleated RBC % 0 Metamyelocytes 0 Hypochromia 0 Platelet Estimate Decreased Polychromasia 1+ Poikilocytosis 2+ Anisocytosis 1+ Microcytosis 0 Macrocytosis 1+ Ovalocytes 1+ Sodium 143 Potassium 5.1 Chloride 104 Carbon Dioxide 31 Anion Gap 9 BUN 37 H Creatinine 0.7 Creat Clearance w eGFR > 60 POC Glucometer 123 Random Glucose 109 H Calcium 8.8 Total Bilirubin 0.7 AST 26 ALT 63 H Alkaline Phosphatase 53 Total Protein 5.9 L Albumin 3.2 L A/P Acute COPD Exacerbation Chest Wall Mass: suspected malignancy CAD HTN Hyperlipidemia - Will change to Prednisone - inhaled bronchodilators - O2 to keep SpO2 >90% - Follow biopsy results - D/C planning Dr Carlos
[2018-04-30] MEDS: ROSUVASTATIN CA 20 MG TABLET (FP) PO SCH (21:23)
[2018-05-01] MEDS: INSULIN SLIDING SCALE (NOVOLOG) 1 VIAL SQ SCH ×4 (06:41→21:35)
[2018-05-01 07:06] LABS: BASO % 0.1 % (0-2.0); EOS % 0.1 % (0-4.5); HEMATOCRIT 39.8 % (32.4-45.2); HEMOGLOBIN 12.6 GM/dL (10.7-15.3); MCHC 31.7 g/dl (32.0-36.0); MEAN CELL VOLUME 91.5 fl (80-96); MEAN PLT VOLUME 10.6 fl (7.5-11.1); MONO % 5.6 % (3.8-10.2); NEUT % 90.2 % (42.8-82.8); PLATELET COUNT 109 K/MM3 (134-434); RBC 4.34 M/mm3 (3.60-5.2); RDW 16.3 % (11.6-15.6); WHITE BLOOD COUNT 16.5 K/mm3 (4.0-10.0)
[2018-05-01 07:32] LABS: ALBUMIN 2.8 g/dl (3.4-5.0); ALK PHOS 47 U/L (45-117); ANION GAP 6 MMOL/L (8-16); BILIRUBIN,TOTAL 0.4 mg/dL (0.2-1); BLOOD UREA NITROGEN 39 mg/dL (7-18); CALCIUM 8.4 mg/dL (8.5-10.1); CHLORIDE 101 mmol/L (98-107); CO2 31 mmol/L (21-32); CREATININE 0.7 mg/dL (0.55-1.3); GLUCOSE,RANDOM 60 mg/dL (74-106); POTASSIUM 4.6 mmol/L (3.5-5.1); SGOT/AST 32 U/L (15-37); SGPT/ALT 56 U/L (13-61); SODIUM 138 mmol/L (136-145); TOT PROT 5.2 g/dl (6.4-8.2)
--- NOTE | 2018-05-01 08:44 | PN ---
Progress Note, Physician Chief Complaint: Pt A&Ox3; almost no pain now at [facility] site; still c/o cough, with difficulty bringing up phlegm. History of Present Illness: The patient is an 82 year old white female, accompanied by son, with a significant PMH of hypertension, hyperlipidemia, ACS s/p myocardial infarction x 2 (s/p coronary angiogram with ? PCI 2006), COPD (quit cigarettes many years ago), who presents to the emergency department with 2 weeks of worsening shortness of breath and productive cough with yellow-clear sputum. The patient states that 3 weeks ago she was started on Z-Farhad antibiotics for cold-like symptoms by Dr. Mary Beth Stein. The patient reports initial relief of her symptoms. However, she states since finishing the antibiotics she has had worsening shortness of breath on exertion and has a persistent productive cough with yellow/clear sputum. She has used inhalers at home for the shortness of breath with mild relief. Received her flu shot earlier today. The patient denies chest pain, headache and dizziness. Denies fever, chills, nausea, vomit, diarrhea and constipation. Denies dysuria, frequency, urgency and hematuria. Past Medical/Surgical Hx of relevance CAD s/p [facility] on aspirin and plavix HTN HL advanced COPD Hyperlipidemia Hypertension PAD 2006 [facility] in 2006--> 2 coronary stents at [facility] by Dr. Ba (she stopped smoking then) Stress MIBI 2016: no ischemia. Allergies: NKA Social history: Former smoker PCP: Dr Mary Beth Stein - Current Medication List Current Medications: Active Medications Acetaminophen (Tylenol -) 650 mg PO Q6H PRN PRN Reason: PAIN Last Admin: 04/30/18 09:03 Dose: 650 mg Albuterol Sulfate (Ventolin 0.083% Nebulizer Soln -) 1 amp NEB Q4H PRN PRN Reason: SHORT OF BREATH/WHEEZING Last Admin: 04/23/18 20:00 Dose: 1 amp Alprazolam (Xanax -) 0.25 mg PO BID PRN PRN Reason: ANXIETY Guaifenesin (Robitussin -) 10 ml PO Q6H PRN PRN Reason: COUGH Last Admin: 04/25/18 09:11 Dose: 10 ml Insulin Aspart (Novolog Vial Sliding Scale -) 1 vial SQ [facility]; Protocol Last Admin: 05/01/18 06:41 Dose: Not Given Metoprolol Tartrate (Lopressor -) 50 mg PO BID [facility] Last Admin: 04/30/18 21:23 Dose: 50 mg Prednisone (Deltasone -) 40 mg PO DAILY [facility] Stop: 05/04/18 10:01 Ranitidine HCl (Zantac -) 150 mg PO DAILY [facility] Last Admin: 04/30/18 09:03 Dose: 150 mg Rosuvastatin Calcium (Crestor -) 20 mg PO HS [facility] Last Admin: 04/30/18 21:23 Dose: 20 mg Tiotropium [place] (Spiriva Respimat) 2 puff IH DAILY [facility] Last Admin: 04/30/18 09:02 Dose: 2 puff - Objective Vital Signs: Vital Signs Temperature 97.7 F 05/01/18 06:21 Pulse Rate 61 05/01/18 06:21 Respiratory Rate 20 05/01/18 06:21 Blood Pressure 160/62 05/01/18 06:21 O2 Sat by Pulse Oximetry (%) 98 04/30/18 22:00 Constitutional: Yes: Anxious Eyes: Yes: WNL Labs: CBC, BMP 05/01/18 06:10 05/01/18 06:10 INR, PTT INR 1.03 (0.83-1.09) 04/24/18 05:30 Problem List - Problems (1) Lung mass Assessment/Plan: Lung mass with rib destrution. S/p biopsy: await pathology results. Code(s): R91.8 - OTHER NONSPECIFIC ABNORMAL FINDING OF LUNG FIELD (2) ASHD (arteriosclerotic heart disease) Assessment/Plan: Hx ASHD/[facility]--> coronary stents in 2006 Denies chest pressure, but walking has been limited for years by exertional dyspnea. Stress MIBI 09/22/2015: no significant myocardial ischemia. Code(s): I25.10 - ATHSCL HEART DISEASE OF [place] CORONARY ARTERY W/O ANG PCTRS (3) COPD (chronic obstructive pulmonary disease) Assessment/Plan: On Spiriva, Ventolin, Solumedrol. Code(s): J44.9 - CHRONIC OBSTRUCTIVE PULMONARY DISEASE, UNSPECIFIED Qualifiers: COPD type: unspecified COPD Qualified Code(s): J44.9 - Chronic obstructive pulmonary disease, unspecified (4) Cough Code(s): R05 - COUGH (5) HTN (hypertension) Assessment/Plan: On metoprolol Consider adding ACEI or ARB (HTN; DM). Code(s): I10 - ESSENTIAL (PRIMARY) HYPERTENSION (6) Shortness of breath Code(s): R06.02 - SHORTNESS OF BREATH (7) Diastolic CHF Code(s): I50.30 - UNSPECIFIED DIASTOLIC (CONGESTIVE) HEART FAILURE (8) Anxiety and depression Code(s): F41.9 - ANXIETY DISORDER, UNSPECIFIED; F32.9 - MAJOR DEPRESSIVE DISORDER, SINGLE EPISODE, UNSPECIFIED (9) Hyperlipidemia Code(s): E78.5 - HYPERLIPIDEMIA, UNSPECIFIED (10) Hypothyroid Code(s): E03.9 - HYPOTHYROIDISM, UNSPECIFIED
[2018-05-01] MEDS ORDERED: PT OWN MED DRAWER 7, Y5N ONE ×2 (09:07→19:35)
[2018-05-01] MEDS: RANITIDINE HCL 150 MG TABLET (FP) PO SCH (09:09)
[2018-05-01] MEDS: TIOTROPIUM BROMIDE 2.5 MCG (SPIRIVA) RESPIMAT INHALER IH SCH (09:09)
[2018-05-01] MEDS: predniSONE 20 MG TABLET (UD) PO SCH (09:09)
[2018-05-01] MEDS: METOPROLOL TARTRATE 25 MG TABLET (FP) PO SCH ×2 (09:09→21:32)
[2018-05-01 10:25] LABS: ANISOCYTOSIS 2+; MACROCYTOSIS 0; OVALOCYTE 1+; PLATELET ESTIMATE DECREASED
--- NOTE | 2018-05-01 11:29 | DS ---
Physical Examination Vital Signs: Vital Signs Temperature 97.7 F 05/01/18 06:21 Pulse Rate 61 05/01/18 06:21 Respiratory Rate 20 05/01/18 06:21 Blood Pressure 160/62 05/01/18 06:21 O2 Sat by Pulse Oximetry (%) 98 04/30/18 22:00 Findings/Remarks: feels well no new c/o; switched to po prednisone yesterday per pulm. O2 sat/RA 90% with exercise; but to repeat OFF O2 before and during test if needs O2 home script given to CM; scripts and ordered done and d/w pt; f/u instructions d/w pt to check biopsy results by next week with me in office ( I called path today NA) restart ASA & PLavix on 05/06 outpt (1 week after biopsy) f/u PULM, cardio, and heme onc within 1 month outpt d/w pt and staff scripts forms ordered done t time 40 min Constitutional: Yes: No Distress, Calm Eyes: Yes: Conjunctiva Clear HENT: Yes: Atraumatic Neck: Yes: Supple Cardiovascular: Yes: Regular Rate and Rhythm Respiratory: Yes: CTA Bilaterally Gastrointestinal: Yes: Soft. No: Tenderness Renal/: No: CVA Tenderness - Left, CVA Tenderness - Right, Hematuria Musculoskeletal: No: Joint Stiffness, Joint Swelling Extremities: No: Cold, Cool, Cyanosis Edema: No Integumentary: No: Pressure Ulcer, Rash, Venous Stasis Changes Neurological: Yes: WNL, Alert, Oriented ...Motor Strength: WNL Psychiatric: Yes: WNL, Alert, Oriented. No: Agitated, Suicidal Ideation Labs: CBC, BMP 05/01/18 06:10 05/01/18 06:10 Discharge Summary Reason For Visit: CHRONIC OBSTRUCTIVE PULMONARY DISEASE Current Active Problems ASHD (arteriosclerotic heart disease) (Acute) Anxiety and depression (Acute) COPD (chronic obstructive pulmonary disease) (Acute) COPD exacerbation (Acute) Cough (Acute) Cough (Acute) Diastolic CHF (Acute) Elevated brain natriuretic peptide (BNP) level (Acute) HTN (hypertension) (Acute) Hyperlipidemia (Acute) Hypothyroid (Acute) Lung mass (Acute) Right ureteral calculus (Acute) Shortness of breath (Acute) Procedures: Principal: admitted with acute COPD exac and bronchitis Other Procedures: seen by cardiology pulmonary; IV steroids; nebs, IV ATB; improved;. chest CT c/w R lung mass had biopsy - results pending;. developed hematuria dx with renal stones; needs f/u outpt;. seen by heme onc to f/u with them outpt when biopsy available; d/w pt Hospital Course: improved with above; f/u as advised d/w pt Condition: Stable - Instructions Diet, Activity, Other Instructions: f/u PCP and pulm in 1-2 weeks; check lung biopsy results in 1 week; restart ASA and Plavix on 05/06 (1 week after lung biopsy) Home O2 NC as ordered continuous if O2 sat<90% cardiology, and heme onc f/u in 2-3 weeks; taper steroids as ordered; RTER if worse or recurrent. Referrals: Mary Beth Stein [Primary Care Provider] - Neftaly Carlos MD [Staff Physician] - Farhad Alcala MD [Staff Physician] - Josh Marinelli MD [Staff Physician] - Luiz Ortiz MD [Staff Physician] - Disposition: VNS/HOME HEALTH CARE - Home Medications Comprehensive Discharge Medication List: Ambulatory Orders Metoprolol Tartrate 25 mg PO BID 07/18/16 Rosuvastatin Calcium [Crestor] 20 mg PO HS 07/18/16 Acetaminophen [Tylenol .Regular Strength -] 650 mg PO Q6H PRN tablet 05/01/18 Albuterol 0.083% Nebulizer [place] [Ventolin 0.083% Nebulizer Soln -] 1 amp NEB Q4H PRN #90 amp 05/01/18 Aspirin [ASA -] 81 mg PO DAILY #90 tab 05/01/18 Clopidogrel Bisulfate [Plavix -] 75 mg PO DAILY #90 tab 05/01/18 Guaifenesin [Robitussin -] 10 ml PO Q6H PRN cup 05/01/18 Ranitidine [Zantac -] 150 mg PO DAILY tablet 05/01/18 Tiotropium [place] [Spiriva Respimat] 2 puff IH DAILY #90 inhaler 05/01/18 predniSONE [Deltasone -] 40 mg PO DAILY #20 tablet 05/01/18
--- NOTE | 2018-05-01 11:46 | PN ---
Progress Note, Physician History of Present Illness: 82 year old female with PMH significant for hypertension, hyperlipidemia, CAD s/ p myocardial infarction x 2, COPD admitted with COPD exacerbation, ruled out for acute coronary syndrome but found to have elevated BNP. Patient with recent PNA treated with azithromycin 3 weeks prior to admission. She had improvement of symptoms but once antibiotics were stopped, her shortness of breath and productive yellow to clear sputum. Patient also complains of shortness of breath with lying flat which she noticed 1 week prior to admission. Sleeps with hospital bed at an incline of approximately 30 degrees due to shortness of breath. Denies any lh, dizziness, chest pain, palpitations, orthopnea, PND or NICCI. 100% compliant with cardiac medications. Past Medical/Surgical Hx of relevance CAD s/p [place] on aspirin and plavix HTN HL advanced COPD Hyperlipidemia Hypertension PAD 2006 [place] in 2006--> 2 coronary stents at [facility] by Dr. Ba (she stopped smoking then) - Current Medication List Current Medications: Active Medications Acetaminophen (Tylenol -) 650 mg PO Q6H PRN PRN Reason: PAIN Last Admin: 04/30/18 09:03 Dose: 650 mg Albuterol Sulfate (Ventolin 0.083% Nebulizer Soln -) 1 amp NEB Q4H PRN PRN Reason: SHORT OF BREATH/WHEEZING Last Admin: 04/23/18 20:00 Dose: 1 amp Alprazolam (Xanax -) 0.25 mg PO BID PRN PRN Reason: ANXIETY Guaifenesin (Robitussin -) 10 ml PO Q6H PRN PRN Reason: COUGH Last Admin: 04/25/18 09:11 Dose: 10 ml Insulin Aspart (Novolog Vial Sliding Scale -) [address] [facility]; Protocol Last Admin: 05/01/18 06:41 Dose: Not Given Metoprolol Tartrate (Lopressor -) 50 mg PO BID [facility] Last Admin: 05/01/18 09:09 Dose: 50 mg Prednisone (Deltasone -) 40 mg PO DAILY [facility] Stop: 05/04/18 10:01 Last Admin: 05/01/18 09:09 Dose: 40 mg Ranitidine HCl (Zantac -) 150 mg PO DAILY [facility] Last Admin: 05/01/18 09:09 Dose: 150 mg Rosuvastatin Calcium (Crestor -) 20 mg PO HS [facility] Last Admin: 04/30/18 21:23 Dose: 20 mg Tiotropium [place] (Spiriva Respimat) 2 puff IH DAILY [facility] Last Admin: 05/01/18 09:09 Dose: 2 puff - Objective Vital Signs: Vital Signs Temperature 97.7 F 05/01/18 06:21 Pulse Rate 61 05/01/18 06:21 Respiratory Rate 20 05/01/18 06:21 Blood Pressure 160/62 05/01/18 06:21 O2 Sat by Pulse Oximetry (%) 98 04/30/18 22:00 Eyes: Yes: WNL, Conjunctiva Clear, EOM Intact HENT: Yes: WNL, Atraumatic, Normocephalic Neck: Yes: WNL, Supple, Trachea Midline Cardiovascular: Yes: WNL, Regular Rate and Rhythm Respiratory: Yes: WNL, Regular, CTA Bilaterally Gastrointestinal: Yes: WNL, Normal Bowel Sounds Genitourinary: Yes: WNL Musculoskeletal: Yes: WNL Extremities: Yes: WNL Edema: No Integumentary: Yes: WNL Neurological: Yes: WNL, Alert, Oriented ...Motor Strength: WNL Psychiatric: Yes: WNL Labs: CBC, BMP 05/01/18 06:10 05/01/18 06:10 INR, PTT INR 1.03 (0.83-1.09) 04/24/18 05:30 Problem List - Problems (1) ASHD (arteriosclerotic heart disease) Code(s): I25.10 - ATHSCL HEART DISEASE OF [place] CORONARY ARTERY W/O ANG PCTRS (2) COPD (chronic obstructive pulmonary disease) Code(s): J44.9 - CHRONIC OBSTRUCTIVE PULMONARY DISEASE, UNSPECIFIED Qualifiers: COPD type: unspecified COPD Qualified Code(s): J44.9 - Chronic obstructive pulmonary disease, unspecified (3) COPD exacerbation Code(s): J44.1 - CHRONIC OBSTRUCTIVE PULMONARY DISEASE W (ACUTE) EXACERBATION (4) Cough Code(s): R05 - COUGH (5) Cough Code(s): R05 - COUGH (6) Elevated brain natriuretic peptide (BNP) level Code(s): R79.89 - OTHER SPECIFIED ABNORMAL FINDINGS OF BLOOD CHEMISTRY (7) HTN (hypertension) Code(s): I10 - ESSENTIAL (PRIMARY) HYPERTENSION (8) Shortness of breath Code(s): R06.02 - SHORTNESS OF BREATH (9) Hematoma Code(s): T14.8XXA - OTHER INJURY OF UNSPECIFIED BODY REGION, INITIAL ENCOUNTER Assessment/Plan - Problems (1) Lung mass Assessment/Plan: Lung mass with rib destrution. S/p biopsy: await pathology results. Code(s): R91.8 - OTHER NONSPECIFIC ABNORMAL FINDING OF LUNG FIELD (2) ASHD (arteriosclerotic heart disease) Assessment/Plan: Hx ASHD/[place]--> coronary stents in 2006 Denies chest pressure, but walking has been limited for years by exertional dyspnea. Stress MIBI 09/22/2015: no significant myocardial ischemia. Code(s): I25.10 - ATHSCL HEART DISEASE OF [place] CORONARY ARTERY W/O ANG PCTRS (3) COPD (chronic obstructive pulmonary disease) Assessment/Plan: On Spiriva, Ventolin, Solumedrol. Code(s): J44.9 - CHRONIC OBSTRUCTIVE PULMONARY DISEASE, UNSPECIFIED Qualifiers: COPD type: unspecified COPD Qualified Code(s): J44.9 - Chronic obstructive pulmonary disease, unspecified (4) Cough Code(s): R05 - COUGH (5) HTN (hypertension) Assessment/Plan: On metoprolol Consider adding ACEI or ARB (HTN; DM). Code(s): I10 - ESSENTIAL (PRIMARY) HYPERTENSION (6) Shortness of breath Code(s): R06.02 - SHORTNESS OF BREATH (7) Diastolic CHF Code(s): I50.30 - UNSPECIFIED DIASTOLIC (CONGESTIVE) HEART FAILURE (8) Anxiety and depression Code(s): F41.9 - ANXIETY DISORDER, UNSPECIFIED; F32.9 - MAJOR DEPRESSIVE DISORDER, SINGLE EPISODE, UNSPECIFIED (9) Hyperlipidemia Code(s): E78.5 - HYPERLIPIDEMIA, UNSPECIFIED (10) Hypothyroid Code(s): E03.9 - HYPOTHYROIDISM, UNSPECIFIED
--- NOTE | 2018-05-01 12:20 | PATH ---
Surgical Pathology Report Patient Name: RASHAD PALMA Med. Rec. #: [id number] /Age/Gender: 1935 (Age: 82) / F Account: [id number] Location: [facility] MED/SURG Taken: 04/29/2018 Received: 04/29/2018 Reported: 05/01/2018 Physicians: Kathy Patel M.D. Specimen(s) Received RIGHT LUNG BIOPSY Clinical History 82-year-old female with right upper lung pleural band mass invading the rib Final Diagnosis RIGHT LUNG, BIOPSY: INVASIVE ADENOCARCINOMA, MODERATELY DIFFERENTIATED. Comment: Immunohistochemical stained slides demonstrate tumor cells to be positive for AE1/AE3, TTF-1, CK7, and NAPSIN A, while negative for CK 20 and P40. The morphology and immunophenotype support a diagnosis of lung primary adenocarcinoma. Immunohistochemistry stains AE1/AE3, CK7, CK20, and TTF-1performed and interpreted at [facility]. Immunohistochemistry stains Napsin A and P40 performed at [place], [place] ([id number]) interpreted at [facility]. Positive and negative controls (internal if applicable) show appropriate results. Electronically Signed Roosevelt Cavazos M.D. Addendum Reported: 05/02/2018 Addendum Diagnosis The result was discussed with Dr. Stein on May 02, 2018. Roosevelt Cavazos M.D. Gross Description Received in formalin labeled "right lung biopsy," are 3 lo, cylindrical portions of soft tissue ranging from 1.2-1.7 cm in length and averaging 0.1 cm in diameter. The specimens are submitted in toto in one cassette. DL/04/29/2018 saudi/04/29/2018
--- NOTE | 2018-05-01 13:40 | PN ---
Progress Note (short form) - Note Progress Note: Patient seen and examined at bedside lung biopsy surgical pathology shows an invasive adenocarcinoma Vital Signs Temperature 98.8 F 04/26/18 10:00 Pulse Rate 64 04/26/18 10:00 Respiratory Rate 17 04/26/18 10:00 Blood Pressure 134/54 L 04/26/18 10:00 O2 Sat by Pulse Oximetry (%) 98 04/26/18 10:00 Constitutional: Yes: Anxious, Thin HENT: Yes: Atraumatic Neck: Yes: Supple. No: Lymphadenopathy Cardiovascular: Yes: Regular Rate and Rhythm, S1, S2 Respiratory: Yes: Other (faint crackles bilaterally diminished breath sounds bilaterally) Gastrointestinal: Yes: Soft. No: Tenderness Musculoskeletal: Yes: WNL Extremities: No: Calf Tenderness No: Edema 04/26/18 04/26/18 06:00 06:00 WBC 11.2 H RBC 4.29 Hgb 12.5 Hct 38.7 MCV 90.3 MCHC 32.3 RDW 15.8 H Plt Count 87 L D Neutrophils % 95.8 H Lymphocytes % 2.4 L Monocytes % 1.7 L Eosinophils % 0.0 Basophils % 0.1 Sodium 141 Potassium 5.0 Chloride 101 Carbon Dioxide 32 Anion Gap 9 BUN 31 H Creatinine 0.7 04/19/18 16:35 Blood Culture - Final Blood - Peripheral Venous NO GROWTH AFTER 5 DAYS INCUBATION 04/19/18 16:35 Blood Culture - Final Blood - Peripheral Venous NO GROWTH AFTER 5 DAYS INCUBATION 04/19/18 18:29 Urine Culture - Final Urine - Urine Clean Catch NO GROWTH OBTAINED 82F with history of HTN CAD COPD who presents to the hospital with shortness of breath and productive cough found to have a right chest wall mass destructing the right lateral third and fourth ribs suspicious for malignancy Problem List: Acute exacerbation of COPD Right lung/chest wall mass found to be invasive adenocarcinoma HLD HTN CAD COPD Plan: Patient will need to follow up with pulmonology PMD and heme/onc as outpatient to discuss treatment options update given to grandson patient anxious about burden on grandson-reassurance given. grandson more than willing to help her and take her to appointments Based on tissue diagnosis patient will likely need staging with MRI brain. CT of the chest abdomen pelvis and PET scan. patient has expressed that she does not want surgery if she needs it for discharge will follow
--- NOTE | 2018-05-01 14:16 | PN ---
Progress Note, Physician History of Present Illness: pulmonary alert,dyspneic with min exertion. bx + adenocarcioma - Current Medication List Current Medications: Active Medications Acetaminophen (Tylenol -) 650 mg PO Q6H PRN PRN Reason: PAIN Last Admin: 04/30/18 09:03 Dose: 650 mg Albuterol Sulfate (Ventolin 0.083% Nebulizer Soln -) 1 amp NEB Q4H PRN PRN Reason: SHORT OF BREATH/WHEEZING Last Admin: 04/23/18 20:00 Dose: 1 amp Alprazolam (Xanax -) 0.25 mg PO BID PRN PRN Reason: ANXIETY Guaifenesin (Robitussin -) 10 ml PO Q6H PRN PRN Reason: COUGH Last Admin: 04/25/18 09:11 Dose: 10 ml Insulin Aspart (Novolog Vial Sliding Scale -) [address] [facility]; Protocol Last Admin: 05/01/18 12:14 Dose: Not Given Metoprolol Tartrate (Lopressor -) 50 mg PO BID [facility] Last Admin: 05/01/18 09:09 Dose: 50 mg Prednisone (Deltasone -) 40 mg PO DAILY [facility] Stop: 05/04/18 10:01 Last Admin: 05/01/18 09:09 Dose: 40 mg Ranitidine HCl (Zantac -) 150 mg PO DAILY [facility] Last Admin: 05/01/18 09:09 Dose: 150 mg Rosuvastatin Calcium (Crestor -) 20 mg PO HS [facility] Last Admin: 04/30/18 21:23 Dose: 20 mg Tiotropium [place] (Spiriva Respimat) 2 puff IH DAILY [facility] Last Admin: 05/01/18 09:09 Dose: 2 puff - Objective Vital Signs: Vital Signs Temperature 97.7 F 05/01/18 06:21 Pulse Rate 61 05/01/18 06:21 Respiratory Rate 20 05/01/18 06:21 Blood Pressure 160/62 05/01/18 06:21 O2 Sat by Pulse Oximetry (%) 98 04/30/18 22:00 Constitutional: Yes: Calm, Thin Eyes: Yes: WNL HENT: Yes: WNL Neck: Yes: WNL Cardiovascular: Yes: Regular Rate and Rhythm, S1, S2 Respiratory: Yes: Diminished Gastrointestinal: Yes: Normal Bowel Sounds, Soft Extremities: Yes: WNL Edema: No Labs: CBC, BMP 05/01/18 06:10 05/01/18 06:10 INR, PTT INR 1.03 (0.83-1.09) 04/24/18 05:30 Problem List - Problems (1) ASHD (arteriosclerotic heart disease) Code(s): I25.10 - ATHSCL HEART DISEASE OF [place] CORONARY ARTERY W/O ANG PCTRS (2) COPD (chronic obstructive pulmonary disease) Code(s): J44.9 - CHRONIC OBSTRUCTIVE PULMONARY DISEASE, UNSPECIFIED Qualifiers: COPD type: unspecified COPD Qualified Code(s): J44.9 - Chronic obstructive pulmonary disease, unspecified (3) Cough Code(s): R05 - COUGH (4) COPD exacerbation Code(s): J44.1 - CHRONIC OBSTRUCTIVE PULMONARY DISEASE W (ACUTE) EXACERBATION (5) HTN (hypertension) Code(s): I10 - ESSENTIAL (PRIMARY) HYPERTENSION (6) Elevated brain natriuretic peptide (BNP) level Code(s): R79.89 - OTHER SPECIFIED ABNORMAL FINDINGS OF BLOOD CHEMISTRY (7) Shortness of breath Code(s): R06.02 - SHORTNESS OF BREATH (8) Cough Code(s): R05 - COUGH Assessment/Plan IMP DYSPNEA IMPROVING COPD EXACERBATION IMPROVED ELEVATED BNP ? CHF ASHD S/P MD X 2 HTN HLD CHEST WALL MASS +LUNG CA PLAN PREDNISONE INHALED BRONCHODILATORS O2 ABX ONCOLOGY F/U HOME O2 DR CARDOSO Problem List - Problems (1) ASHD (arteriosclerotic heart disease) Code(s): I25.10 - ATHSCL HEART DISEASE OF [place] CORONARY ARTERY W/O ANG PCTRS (2) COPD (chronic obstructive pulmonary disease) Code(s): J44.9 - CHRONIC OBSTRUCTIVE PULMONARY DISEASE, UNSPECIFIED Qualifiers: COPD type: unspecified COPD Qualified Code(s): J44.9 - Chronic obstructive pulmonary disease, unspecified (3) Cough Code(s): R05 - COUGH (4) COPD exacerbation Code(s): J44.1 - CHRONIC OBSTRUCTIVE PULMONARY DISEASE W (ACUTE) EXACERBATION (5) HTN (hypertension) Code(s): I10 - ESSENTIAL (PRIMARY) HYPERTENSION (6) Elevated brain natriuretic peptide (BNP) level Code(s): R79.89 - OTHER SPECIFIED ABNORMAL FINDINGS OF BLOOD CHEMISTRY (7) Shortness of breath Code(s): R06.02 - SHORTNESS OF BREATH (8) Cough Code(s): R05 - COUGH
--- NOTE | 2018-05-01 16:10 | PN ---
Teaching Attending Note Name of Resident: Kurtis Rosario ATTENDING PHYSICIAN STATEMENT I saw and evaluated the patient. I reviewed the resident's note and discussed the case with the resident. I agree with the resident's findings and plan as documented. SUBJECTIVE: Patient seen and examined Dr. Rosario discussed in detail with patient and son approach. I re- inforced need for additional testing and then team approach to treatment. Patient will need PFT's, CT of head with contrast if unable to have MRI, PET-CT as out patient. Last Vital Signs Temp Pulse Resp BP Pulse Ox 98.5 F 76 18 137/53 L 95 05/01/18 14:33 05/01/18 14:40 05/01/18 14:33 05/01/18 14:33 05/01/18 14:40 HEENT: [place], EOM Intact Cor: RSR, No murmurs, No gallops Lungs:diminished breath sounds bilaterally CBC, BMP 05/01/18 06:10 05/01/18 06:10 Current Medications Generic Name Dose Route Start Last Admin Trade Name Freq PRN Reason Stop Dose Admin Acetaminophen 650 mg 04/19/18 22:30 04/30/18 09:03 Tylenol - PO 650 mg Q6H PRN Administration PAIN Albuterol Sulfate 1 amp 04/19/18 22:30 04/23/18 20:00 Ventolin 0.083% Nebulizer Soln - NEB 1 amp Q4H PRN Administration SHORT OF BREATH/WHEEZING Alprazolam 0.25 mg 04/23/18 11:01 Xanax - PO BID PRN ANXIETY Guaifenesin 10 ml 04/19/18 22:30 04/25/18 09:11 Robitussin - PO 10 ml Q6H PRN Administration COUGH Insulin Aspart 1 vial 04/20/18 07:00 05/01/18 12:14 Novolog Vial Sliding Scale - SQ Not Given ACHS JOHN Protocol Metoprolol Tartrate 50 mg 04/20/18 18:30 05/01/18 09:09 Lopressor - PO 50 mg BID JOHN Administration Prednisone 40 mg 05/01/18 10:00 05/01/18 09:09 Deltasone - PO 05/04/18 10:01 40 mg DAILY JOHN Administration Ranitidine HCl 150 mg 04/20/18 10:00 05/01/18 09:09 Zantac - PO 150 mg DAILY JOHN Administration Rosuvastatin Calcium 20 mg 04/20/18 22:00 04/30/18 21:23 Crestor - PO 20 mg HS JOHN Administration Tiotropium [place] 2 puff 04/20/18 12:15 05/01/18 09:09 Spiriva Respimat IH 2 puff DAILY JOHN Administration [place] of lung For completion of staging - PET.PFT'S. Imaging of head . OBJECTIVE: ASSESSMENT AND PLAN:
[2018-05-01] MEDS ORDERED: INSULIN (NOVOLOG) ASPART 100 UNITS/ML 10ML VIAL ONE (16:17)
[2018-05-01] MEDS: ROSUVASTATIN CA 20 MG TABLET (FP) PO SCH (21:32)
[2018-05-02] MEDS: INSULIN SLIDING SCALE (NOVOLOG) 1 VIAL SQ SCH (06:44)
[2018-05-02] MEDS ORDERED: PT OWN MED DRAWER 7, Y5N ONE (09:21)
[2018-05-02] MEDS: TIOTROPIUM BROMIDE 2.5 MCG (SPIRIVA) RESPIMAT INHALER IH SCH (09:22)
[2018-05-02] MEDS: RANITIDINE HCL 150 MG TABLET (FP) PO SCH (09:22)
[2018-05-02] MEDS: predniSONE 20 MG TABLET (UD) PO SCH (09:22)
[2018-05-02] MEDS: METOPROLOL TARTRATE 25 MG TABLET (FP) PO SCH (09:22)
[2018-05-02 10:41] VITALS: BP 145/73; PULSE 67; TEMP 97.2
--- NOTE | 2018-05-02 10:47 | PN ---
Progress Note, Physician Chief Complaint: pt waiting for O2 tank for home; also said her Grand son worked late last night no one was home and she did not have keys for the apartment. today she feels better; no new c/o; less SOB less cough; grand son Ti present at bedside repeated pre and post O2 sat/RA after waiting off O2 for a period of time showed O2 sat/RA postexercise < 90% - pt qualifies for home O2; d/w CM to be delivered today; d/w pt and GS no smoking in house risk of explosion; to be worn continuous 2l/min; portable; path d/w pt and GS: prelim lung CA; pt does not want surgery even if indicated; advised to f/u with heme onc dr Alcala for further treatment (chemotx, radiation? ) pt said she will see him in 1-2 weeks see DC summary 05/01 - Objective Vital Signs: Vital Signs Temperature 97.2 F L 05/02/18 10:00 Pulse Rate 67 05/02/18 10:00 Respiratory Rate 18 05/02/18 10:00 Blood Pressure 145/73 05/02/18 10:00 O2 Sat by Pulse Oximetry (%) 97 05/01/18 20:27 Constitutional: Yes: No Distress, Calm Eyes: Yes: Conjunctiva Clear HENT: Yes: Atraumatic Neck: Yes: Supple Cardiovascular: Yes: Regular Rate and Rhythm Respiratory: Yes: CTA Bilaterally Gastrointestinal: Yes: Soft. No: Distention Genitourinary: No: CVA Tenderness - Left, CVA Tenderness - Right Musculoskeletal: No: Joint Stiffness, Joint Swelling Extremities: No: Cold, Cool, Cyanosis Edema: No Integumentary: No: Rash, Venous Stasis Changes Neurological: Yes: WNL, Alert, Oriented ...Motor Strength: WNL Psychiatric: Yes: WNL, Alert, Oriented. No: Agitated, Suicidal Ideation Labs: CBC, BMP 05/01/18 06:10 05/01/18 06:10 INR, PTT INR 1.03 (0.83-1.09) 04/24/18 05:30 - ....Imaging Other: Report Reviewed Assessment/Plan The patient is a 82 year old female with a significant PMH of hypertension, hyperlipidemia, ACS s/p myocardial infarction x 2, COPD, admitted with acute on chronic COPD exac; acute bronchitis / pneumonia; low PLT BMI 18 c/w severe malnutrition (pt's weight currently 87, used to be 95-98 at baseline) po steroids; taper as indicated home nebs, home O2 BP control pulmonary and cardiology f/u outpt falls PFX chest CT c/w RUL mass invading 2 ribs, s/p biopsy prelim report c/w lung CA, needs to see heme onc dr Alcala within 1-2 weeks outpt for further treatment restart ASA & Plavix on sunday 05/06 painless hematuria: f/u outpt for renal stones d/w pt and grandson Ti at bedside all the above.
== END 2018-05-02 10:31 | disposition home health service (06) | DRG 180 ==
LOC: JER 14:07 → JERBED 17:49 → J4W 20:19 → J7W 04-25 14:38
PROVIDERS: ADMIT Internal Medicine; ATTEND Internal Medicine
PROC: 0B9K3ZX Drainage of Right Lung, Percutaneous Approach, Diagnostic (ICD-10-PCS; principal; 2018-04-29)
DX: C34.90 Malignant neoplasm of unspecified part of unspecified bronchus or lung (principal); E43 Unspecified severe protein-calorie malnutrition; J44.1 Chronic obstructive pulmonary disease with (acute) exacerbation; I50.30 Unspecified diastolic (congestive) heart failure; N20.1 Calculus of ureter; Z68.1 Body mass index [BMI] 19.9 or less, adult; I25.10 Atherosclerotic heart disease of native coronary artery without angina pectoris; R91.8 Other nonspecific abnormal finding of lung field; I10 Essential (primary) hypertension; E78.5 Hyperlipidemia, unspecified; F41.8 Other specified anxiety disorders; E03.9 Hypothyroidism, unspecified; J20.9 Acute bronchitis, unspecified
CPT/HCPCS: 32405; 36415; 71045-TC-FY; 71250-TC; 74176-TC; 76098-TC-FY; 77012-TC; 80048; 80053; 81003; 81015; 82550; 82803; 82962; 83605; 83735; 83880; 84439; 84443; 84484; 85025; 85610; 85730; 87040; 87086; 87899; 88305-TC; 88341-TC; 93005; 93010; 93306-TC; 94640; 94761; 99283-25; J1644

== ENCOUNTER 2018-07-08 15:58 | Inpatient (IN) | payer OTHER ==
--- NOTE | 2018-07-08 16:17 | PDOC ---
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 Patient was completing her first radiation treatment today when she suddenly became short of breath. Denies chest pain, lightheadedness, nausea, diaphoresis. Grandson @ bedside assists in history, notes patient has been taking her Albuterol inhaler multiple times daily. Recent medication addition of Symbicort to her daily regimen. History limited as patient tachycardic, tachypneic @ presentation. NKDA Surgical: Cardiac Stent x3, lung biopsy PMD: Dr. Mary Beth Stein Cardiology: Dr. Bah Pulmonology: Dr. Kern/Dr. Velazquez As per EMR, patient was most recently evaluated in our ED in 04/18 for shortness of breath. Admitted for COPD exacerbation, during course of admission was diagnosed with NSCC Lung CA. <Carmen Pickens - Last Filed: 07/09/18 10:49> - General Chief Complaint: Shortness of Breath Stated Complaint: SHORTNESS OF BREATH Time Seen by Provider: 07/08/18 16:17 Past History <Nicolette Crowder - Last Filed: 07/08/18 18:34> - Past Medical History Cardiac Disorders: Yes (mi x 2) COPD: Yes HTN: Yes Hypercholesterolemia: Yes - Surgical History Cardiac Surgery: Yes (2 stents) GI Surgery: No Neurologic Surgery: No - Immunization History Immunization Up to Date: Yes - Suicide/Smoking/Psychosocial Hx Smoking History: Unknown if ever smoked Have you smoked in the past 12 months: No If you are a former smoker, when did you quit?: 11 years ago Information on smoking cessation initiated: No Hx Alcohol Use: No Drug/Substance Use Hx: No <Carmen Pickens - Last Filed: 07/09/18 10:49> - Past Medical History Allergies/Adverse Reactions: Allergies Allergy/AdvReac Type Severity Reaction Status Date / Time No Known Allergies Allergy Verified 10/19/18 14:12 Home Medications: Ambulatory Orders Metoprolol Tartrate 25 mg PO BID 07/18/16 Rosuvastatin Calcium [Crestor] 20 mg PO HS 07/18/16 Acetaminophen [Tylenol .Regular Strength -] 650 mg PO Q6H PRN tablet 05/01/18 Albuterol 0.083% Nebulizer [place] [Ventolin 0.083% Nebulizer Soln -] 1 amp NEB Q4H PRN #90 amp 05/01/18 Aspirin [ASA -] 81 mg PO DAILY #90 tab 05/01/18 Clopidogrel Bisulfate [Plavix -] 75 mg PO DAILY #90 tab 05/01/18 Tiotropium [place] [Spiriva Respimat] 2 puff IH DAILY #90 inhaler 05/01/18 Budesonide/Formeterol Fumarate [SYMBICORT 80/4.5mcg -] 2 inh PO BID 07/08/18 Furosemide [Lasix -] 20 mg PO ASDIR 07/08/18 Review of Systems - Review of Systems Constitutional: No: Chills, Fever HEENTM: No: Recent change in vision Respiratory: Yes: Shortness of Breath. No: Cough, Stridor, Wheezing, Hemoptysis Cardiac (ROS): No: Chest Pain, Lightheadedness, Palpitations, Syncope ABD/GI: No: Constipated, Diarrhea, Nausea, Vomiting <Carmen Pickens - Last Filed: 07/09/18 10:49> *Physical Exam - Vital Signs Last Vital Signs Temp Pulse Resp BP Pulse Ox 97.3 F L 120 H 31 H 196/115 H 91 L 07/08/18 16:14 07/08/18 17:48 07/08/18 17:48 07/08/18 16:14 07/08/18 17:48 <Nicolette Crowder - Last Filed: 07/08/18 18:34> - Vital Signs Last Vital Signs Temp Pulse Resp BP Pulse Ox 97.3 F L 109 H 16 196/115 H 75 L 07/08/18 16:14 07/08/18 16:14 07/08/18 16:14 07/08/18 16:14 07/08/18 16:14 - Physical Exam Comments: 07/08/18 17:27 Cachetic, alert, verbal Tachypneic (20's), Accessory muscle use, CLTA B/L with decreased breath sounds B /L S1/S2, Tachycardic 2+ DP pulses, no edema/cords/tenderness Visibly anxious General Appearance: Yes: Nourished, Cachetic HEENT: positive: Normal Voice, Hearing Grossly Normal Neck: positive: Trachea midline, Supple Respiratory/Chest: positive: Accessory Muscle Use, Labored Respiration, Rapid RR , Decreased Breath Sounds Cardiovascular: positive: S1, S2. negative: Edema Gastrointestinal/Abdominal: positive: Normal Bowel Sounds, Soft Extremity: positive: Normal Capillary Refill, Normal Inspection Integumentary: positive: Normal Color, Dry, Warm Neurologic: positive: Fully Oriented, Alert <Carmen Pickens - Last Filed: 07/09/18 10:49> Moderate Sedation - Procedure Monitoring Vital Signs: Procedure Monitoring Vital Signs Temperature 97.3 F L 07/08/18 16:14 Pulse Rate 120 H 07/08/18 17:48 Respiratory Rate 31 H 07/08/18 17:48 Blood Pressure 196/115 H 07/08/18 16:14 O2 Sat by Pulse Oximetry (%) 91 L 07/08/18 17:48 <Nicolette Crowder - Last Filed: 07/08/18 18:34> - Procedure Monitoring Vital Signs: Procedure Monitoring Vital Signs Temperature 97.3 F L 07/08/18 16:14 Pulse Rate 109 H 07/08/18 16:14 Respiratory Rate 16 07/08/18 16:14 Blood Pressure 196/115 H 07/08/18 16:14 O2 Sat by Pulse Oximetry (%) 75 L 07/08/18 16:14 <Carmen Pickens - Last Filed: 07/09/18 10:49> Heart Score/ECG Review - ECG Impressions Comment:: 07/09/18 10:31 ECG shows Sinus Tachycardia (HR 110), normal intervals, no deviations -- poor study 2/2 to patient clinical condition, however no ANJU/STD/TWI. Non-ischemic ( previous ECG dated 04/18 showed sinus gaetano with shortened [place]) <Carmen Pickens - Last Filed: 07/09/18 10:49> ED Treatment Course - LABORATORY CBC & Chemistry Diagram: 07/08/18 16:43 07/08/18 16:43 - ADDITIONAL ORDERS Additional order review: Laboratory Results 0107/08/18 07/08/18 18:00 16:43 16:43 PT with INR INR PTT (Actin FS) Anticoagulation Therapy No Result Required. Puncture Site Left radial ABG pH 7.27 L ABG pCO2 at Pt Temp 53.8 H ABG pO2 at Pt Temp 79.0 ABG HCO3 24.1 ABG O2 Sat (Measured) 92.9 ABG O2 Content No Result Required. ABG Base Excess -2.9 L Deepak Test Positive VBG pH POC VBG pCO2 POC VBG pO2 Mixed VBG HCO3 O2 Delivery Device No Result Required. Oxygen Flow Rate No Result Required. Vent Mode No Result Required. Vent Rate No Result Required. Mechanical Rate No Result Required. Pressure Support Vent No Result Required. Sodium Cancelled Potassium Cancelled Chloride Cancelled Carbon Dioxide Cancelled Anion Gap Cancelled BUN Cancelled Creatinine Cancelled Creat Clearance w eGFR Cancelled Random Glucose Cancelled Lactic Acid 2.0 Calcium Cancelled Total Bilirubin Cancelled AST Cancelled ALT Cancelled Alkaline Phosphatase Cancelled Troponin I Total Protein Cancelled Albumin Cancelled 07/08/18 07/08/18 07/08/18 16:43 16:43 16:27 PT with INR 11.90 INR 1.01 PTT (Actin FS) 25.5 Anticoagulation Therapy Puncture Site ABG pH ABG pCO2 at Pt Temp ABG pO2 at Pt Temp ABG HCO3 ABG O2 Sat (Measured) ABG O2 Content ABG Base Excess Deepak Test VBG pH 7.26 L POC VBG pCO2 56.0 H POC VBG pO2 76.6 H D Mixed VBG HCO3 24.6 O2 Delivery Device Oxygen Flow Rate Vent Mode Vent Rate Mechanical Rate Pressure Support Vent Sodium 141 Potassium 4.7 Chloride 108 H Carbon Dioxide 24 Anion Gap 9 BUN 18 Creatinine 0.8 Creat Clearance w eGFR > 60 Random Glucose 181 H Lactic Acid Calcium 8.8 Total Bilirubin 0.4 AST 21 ALT 16 Alkaline Phosphatase 89 Troponin I 0.02 Total Protein 6.7 Albumin 3.6 07/08/18 16:43 RBC 4.55 MCV 89.3 MCHC 32.6 RDW 17.1 H MPV 10.6 Neutrophils % 86.0 H Lymphocytes % 6.2 L D Monocytes % 5.5 Eosinophils % 1.6 Basophils % 0.7 - Medications Given in the ED: ED Medications Discontinued Medications Generic Name Dose Route Start Last Admin Trade Name Freq PRN Reason Stop Dose Admin Albuterol/Ipratropium 1 amp 07/08/18 16:40 07/08/18 16:58 Duoneb - NEB 07/08/18 16:41 1 amp ONCE ONE Administration Albuterol/Ipratropium 1 amp 07/08/18 16:44 07/08/18 16:59 Duoneb - NEB 07/08/18 16:45 1 amp Q15M STA Administration Magnesium Sulfate 2 gm 07/08/18 16:40 07/08/18 17:06 Magnesium Sulfate IVPB 07/08/18 16:41 2 gm ONCE ONE Administration Methylprednisolone Sodium Succinate 125 mg 07/08/18 16:41 07/08/18 17:06 Solu-Medrol - IVPUSH 07/08/18 16:42 125 mg ONCE ONE Administration - Consult/PCP Time Called: 18:34 (Paged Dr. Mary Beth Stein's service. ) <Nicolette Crowder - Last Filed: 07/08/18 18:34> - LABORATORY CBC & Chemistry Diagram: 07/09/18 06:45 07/09/18 06:45 <Carmen Pickens - Last Filed: 07/09/18 10:49> Medical Decision Making - Medical Decision Making 07/08/18 16:28 82 year old female presents Tachycardic (109), Hypertensive (196/115) following lung cancer radiation treatment this evening. PE shows decreased breath sounds B/L however no crackles/wheezing. Frontal diagnosis: sequelae of lung CA/ radiation including Acute Pulmonary Edema, ARDS, Radiation induced illness vs. PNA vs. r/o NV (less likely) vs. Anxiety (diagnosis of exclusion). Adult ED sepsis protocol initiated, cardiac monitoring. Duo Nebs, Mg, Solumedrol. Close monitoring. Reassess. Repeat BP 154/118 ECG documented in ECG section of EMR - poor clinical data 2/2 to patient clinical condition, non-ischemic 07/08/18 17:40 Patient reassessed @ bedside. Duo Nebs; continues to c/o difficulty breathing RR 20's-30's, Tachy HR 130's however patient receiving Duo Nebs 07/08/18 18:05 Patient reassessed @ bedside, symptomatically improved WBC 18.9 - not currently on steroids as per family, likely 2/2 to Tumor burden as neutrophils 95% Troponin (-) x1 HR low 100's, RR 30's, BP 100/89 CXR shows pulmonary vascular congestion, cardiomegaly, +/- infiltrate 07/08/18 21:03 Case d/w Dr. Stein- requests inpatient admission VSS Patient and patient's grandson counseled on plan of care. Clinical Impression: Anxiety (Dx of exclusion) <Carmen Pickens - Last Filed: 07/09/18 10:49> *DC/Admit/Observation/Transfer <Nicolette Crowder - Last Filed: 07/08/18 18:34> - Discharge Dispostion Decision to Admit order: Yes <Carmen Pickens - Last Filed: 07/09/18 10:49> Diagnosis at time of Disposition: Shortness of breath - Discharge Dispostion Condition at time of disposition: Fair
[2018-07-08] MEDS ORDERED: ALBUTEROL SO4 2.5/IPRATROPIUM 0.5 INH SOL 3 ML VIAL.NEB. NEB ONE ×2 (16:40→16:43)
[2018-07-08] MEDS ORDERED: MAGNESIUM SULF 50% (8.12 MEQ/2 ML-1 GM VIAL) IVPB ONE (16:40)
[2018-07-08] MEDS ORDERED: methylPREDNISolone NA SUCC 125 MG/2 ML VIAL IVPUSH ONE (16:41)
[2018-07-08] MEDS ORDERED: ALBUTEROL SO4 2.5/IPRATROPIUM 0.5 INH SOL 3 ML VIAL.NEB. NEB STA (16:44)
--- NOTE | 2018-07-08 16:48 | PDOC ---
Attending Attestation - HPI HPI: The patient is an 82 year old female with a PMH of COPD (on 2L), Stage 3a NSCC, who was BIBA for acute onset of shortness of breath. Patient was completing her first radiation treatment today when she suddenly became short of breath. NKDA Surgical Hx: Cardiac Stent x3, lung biopsy PMD: Dr. Mary Beth Stein Cardiology: Dr. Bah Pulmonology: Dr. Kern/Dr. Velazquez <Nicolette Crowder - Last Filed: 07/08/18 17:54> - Resident Resident Name: Carmen Pickens - ED Attending Attestation I have performed the following: I have examined & evaluated the patient, The case was reviewed & discussed with the resident, I agree w/resident's findings & plan, Exceptions are as noted - HPI HPI: 07/08/18 16:47 thin anxious 82 yo female p/w resp distress PMH lung CA, copd - Physicial Exam PE: 07/08/18 16:48 cachetic 82 yo female p/w increased resp rate,hypoxia ,hypertensive,pt is tugging and using accessory muscles head ncat neck supple lungs decreased BS b/l,decreased airmvmt cvs tachy abd flat ext no edema skin warm and dry neuro alert,not speaking in full sentences psych anxious - Medical Decision Making 07/08/18 16:50 pt has non small cell lung ca and just started radiation tx and was very anxious she sees Dr. Alcala for chem on 07/08/18 16:58 cxr CM,chronic interstitial lung ds,possible congestion 07/08/18 16:59 diff diag includes copd exacerbation,dchf,post obstructive pneumonia,ACS plan resp ts,steroids,bnp,cbc,comp,trop,ekg 07/08/18 18:37 pt responded to treatment and has improved IMP copd exacerbation Dr Mary Beth Stein admitted pt to med/surg <Ruchi Hawkins - Last Filed: 07/08/18 18:44>
[2018-07-08 17:00] LABS: VENOUS PH 7.26 (7.32-7.42)
[2018-07-08] MEDS ORDERED: methylPREDNISolone NA SUCC 125 MG/2 ML VIAL ONE (17:00)
[2018-07-08] MEDS ORDERED: MAGNESIUM 1GM/D5W - 2 GM/200 ML IVPB IVPB ONE (17:00)
[2018-07-08 17:06] LABS: VENOUS PO2 76.6 mmHg (28-48)
[2018-07-08 17:23] LABS: BASO % 0.7 % (0-2.0); EOS % 1.6 % (0-4.5); HEMATOCRIT 40.6 % (32.4-45.2); HEMOGLOBIN 13.2 GM/dL (10.7-15.3); LYMPH % 6.2 % (8-40); MCH 29.1 pg (25.7-33.7); MCHC 32.6 g/dl (32.0-36.0); MEAN CELL VOLUME 89.3 fl (80-96); MEAN PLT VOLUME 10.6 fl (7.5-11.1); MONO % 5.5 % (3.8-10.2); PLATELET COUNT 269 K/MM3 (134-434); RBC 4.55 M/mm3 (3.60-5.2); RDW 17.1 % (11.6-15.6); WHITE BLOOD COUNT 18.9 K/mm3 (4.0-10.0)
[2018-07-08 17:45] LABS: INR 1.01 (0.83-1.09); PROTHROMBIN TIME (PATIENT) 11.9 SEC (9.7-13.0)
[2018-07-08 17:48] LABS: ACTIVATED PTT 25.5 SECONDS (25.2-36.5)
[2018-07-08 18:06] LABS: ARTERIAL BLD GAS O2 SATURATION 92.9 % (90-98.9); ARTERIAL BLOOD GAS PCO2 53.8 mmHg (35-45); ARTERIAL BLOOD GAS pH 7.27 (7.35-7.45)
[2018-07-08 18:07] LABS: ALLENS TEST POSITIVE; ARTERIAL BLOOD GAS BASE EXCESS -2.9 meq/l (-2-2)
[2018-07-08 18:09] LABS: ALBUMIN 3.6 g/dl (3.4-5.0); ALK PHOS 89 U/L (45-117); ANION GAP 9 MMOL/L (8-16); BILIRUBIN,TOTAL 0.4 mg/dL (0.2-1); BLOOD UREA NITROGEN 18 mg/dL (7-18); CALCIUM 8.8 mg/dL (8.5-10.1); CHLORIDE 108 mmol/L (98-107); CO2 24 mmol/L (21-32); CREATININE 0.8 mg/dL (0.55-1.3); GLUCOSE,RANDOM 181 mg/dL (74-106); POTASSIUM 4.7 mmol/L (3.5-5.1); SGOT/AST 21 U/L (15-37); SGPT/ALT 16 U/L (13-61); SODIUM 141 mmol/L (136-145); TOT PROT 6.7 g/dl (6.4-8.2)
[2018-07-08 19:29] LABS: N-TERMINAL BNP 2531.99 pg/ml (5-450)
[2018-07-08] MEDS ORDERED: ROSUVASTATIN CA 10 MG TABLET (FP) ONE (23:40)
[2018-07-08] MEDS: ROSUVASTATIN CA 20 MG TABLET (FP) PO SCH (23:47)
[2018-07-08] MEDS: METOPROLOL TARTRATE 25 MG TABLET (FP) PO SCH (23:47)
[2018-07-08] MEDS: HEPARIN NA (PORCINE) 5,000 UNITS/ML 1ML VIAL SQ SCH (23:47)
[2018-07-08] MEDS: INSULIN SLIDING SCALE (NOVOLOG) 1 VIAL SQ SCH (23:47)
[2018-07-09] MEDS: methylPREDNISolone NA SUCC 40 MG/1 ML VIAL IVPB SCH ×3 (02:39→17:42)
[2018-07-09] MEDS: ALBUTEROL SO4 0.083% IH SOL 2.5 MG/3 ML VIAL.NEB. NEB PRN (04:59)
[2018-07-09] MEDS: INSULIN SLIDING SCALE (NOVOLOG) 1 VIAL SQ SCH ×4 (06:20→21:27)
--- NOTE | 2018-07-09 06:20 | HP ---
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 Patient was completing her first radiation treatment yesterday when she became short of breath. Denies chest pain, lightheadedness, nausea, diaphoresis. d/w Grandryan Ti who said pt is SOB and GAY at rest and using inhalers / pumps at home multiple times and O2 NC. 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 in ER had CO2 retention on ABG, admitted with COPD exac. History Source: Patient Limitations to Obtaining History: No Limitations - Past Medical History Cardiovascular: Yes: CAD, CHF, HTN Pulmonary: Yes: COPD - Smoking History Smoking history: Former smoker Have you smoked in the past 12 months: No If you are a former smoker, when did you quit?: 11 years ago - Alcohol/Substance Use Hx Alcohol Use: No History of Substance Use: reports: None - Social History Usual Living Arrangement: Yes: With Child ADL: Independent History of Recent Travel: No Home Medications - Allergies Allergies/Adverse Reactions: Allergies Allergy/AdvReac Type Severity Reaction Status Date / Time No Known Allergies Allergy Verified 04/19/18 14:12 - Home Medications Home Medications: Ambulatory Orders Metoprolol Tartrate 25 mg PO BID 07/18/16 Rosuvastatin Calcium [Crestor] 20 mg PO HS 07/18/16 Acetaminophen [Tylenol .Regular Strength -] 650 mg PO Q6H PRN tablet 05/01/18 Albuterol 0.083% Nebulizer [place] [Ventolin 0.083% Nebulizer Soln -] 1 amp NEB Q4H PRN #90 amp 05/01/18 Aspirin [ASA -] 81 mg PO DAILY #90 tab 05/01/18 Clopidogrel Bisulfate [Plavix -] 75 mg PO DAILY #90 tab 05/01/18 Tiotropium [place] [Spiriva Respimat] 2 puff IH DAILY #90 inhaler 05/01/18 Budesonide/Formeterol Fumarate [SYMBICORT 80/4.5mcg -] 2 inh PO BID 07/08/18 Furosemide [Lasix -] 20 mg PO ASDIR 07/08/18 Family Disease History - Family Disease History Family History: Unremarkable Review of Systems - Review of Systems Constitutional: denies: Chills, Fever, Lethargy Eyes: denies: Blind Spots, Blurred Vision, Double Vision, Eye Pain HENT: denies: Difficult Swallowing, Ear Pain, Epistaxis Cardiovascular: reports: Chest Pain (R anterior chest wall pain on/off), Shortness of Breath. denies: Edema, Palpitations Respiratory: reports: Cough, Exercise Intolerance, SOB, SOB on Exertion Gastrointestinal: denies: Abdominal Pain, Constipation, Diarrhea, Vomiting Genitourinary: denies: Dysuria, Flank Pain Musculoskeletal: denies: Back Pain, Joint Swelling Integumentary: denies: Eczema, Erythema Neurological: denies: Change in LOC, Change in Speech, Confusion, Dizziness Endocrine: reports: Unexplained Weight Loss. denies: Excessive Sweating, Intolerance to Cold Hematology/Lymphatic: denies: Easily Bruised, Excessive Bleeding Psychiatric: denies: Altered Sleep Pattern, Anxiety, Depression Physical Examination Vital Signs: Vital Signs Temperature 97.4 F L 07/08/18 23:20 Pulse Rate 101 H 07/08/18 23:20 Respiratory Rate 22 H 07/08/18 23:20 Blood Pressure 134/62 07/08/18 23:20 O2 Sat by Pulse Oximetry (%) 94 L 07/08/18 23:20 Constitutional: Yes: Anxious Eyes: Yes: Conjunctiva Clear HENT: Yes: Atraumatic Neck: Yes: Supple Cardiovascular: Yes: Regular Rate and Rhythm Respiratory: Yes: Rales, Wheezes Gastrointestinal: Yes: Soft. No: Distention Renal/: No: CVA Tenderness - Left, CVA Tenderness - Right Musculoskeletal: No: Joint Stiffness, Joint Swelling Extremities: No: Cold, Cool, Cyanosis Edema: No Integumentary: No: Rash, Venous Stasis Changes Neurological: Yes: WNL, Alert, Oriented ...Motor Strength: WNL Psychiatric: Yes: WNL, Alert, Oriented. No: Agitated, Suicidal Ideation Labs: CBC, BMP 07/08/18 16:43 07/08/18 16:43 Imaging - Results Chest X-ray: Report Reviewed Other: Report Reviewed Assessment/Plan The patient is an 82 year old female with a PMH of COPD (on 2L), Stage 3a NSCC ( currently on radiation), CAD s/p IN (s/p cardiac stent x3), HTN, HLD was BIBEMS for acute onset of shortness of breath. Patient was completing her first radiation treatment today when she became short of breath. Also coughing and having progressively worse SOB admit to inpt COPD exac iv steroids, nebs, O2 and iv antibiotics PULM< Cardiology eval ONC eval f/u labs DVT pfx prognosis guarded d/w pt and staff
[2018-07-09 07:17] LABS: BASO % 0.1 % (0-2.0); HEMATOCRIT 36.2 % (32.4-45.2); HEMOGLOBIN 11.3 GM/dL (10.7-15.3); LYMPH % 3.1 % (8-40); MCHC 31.3 g/dl (32.0-36.0); MEAN CELL VOLUME 89.4 fl (80-96); NEUT % 95.8 % (42.8-82.8); PLATELET COUNT 128 K/MM3 (134-434); RBC 4.05 M/mm3 (3.60-5.2); WHITE BLOOD COUNT 5.9 K/mm3 (4.0-10.0)
[2018-07-09 07:53] LABS: ALK PHOS 71 U/L (45-117); ANION GAP 8 MMOL/L (8-16); BILIRUBIN,TOTAL 0.5 mg/dL (0.2-1); BLOOD UREA NITROGEN 17 mg/dL (7-18); CALCIUM 8.7 mg/dL (8.5-10.1); CHLORIDE 108 mmol/L (98-107); CO2 28 mmol/L (21-32); CREATININE 0.7 mg/dL (0.55-1.3); GLUCOSE,RANDOM 128 mg/dL (74-106); POTASSIUM 4.6 mmol/L (3.5-5.1); SGOT/AST 21 U/L (15-37); SGPT/ALT 14 U/L (13-61); SODIUM 143 mmol/L (136-145); TOT PROT 5.5 g/dl (6.4-8.2)
[2018-07-09] MEDS ORDERED: PT OWN MED DRAWER 7, Y5N ONE ×5 (09:00→18:43)
[2018-07-09] MEDS: METOPROLOL TARTRATE 25 MG TABLET (FP) PO SCH ×2 (09:09→21:23)
[2018-07-09] MEDS: RANITIDINE HCL 150 MG TABLET (FP) PO SCH (09:09)
[2018-07-09] MEDS: CLOPIDOGREL BISULFATE 75 MG TABLET (FP) PO SCH (09:09)
[2018-07-09] MEDS: ASPIRIN 81 MG CHEWABLE TABLETS PO SCH (09:09)
[2018-07-09] MEDS: HEPARIN NA (PORCINE) 5,000 UNITS/ML 1ML VIAL SQ SCH ×2 (09:10→21:22)
--- NOTE | 2018-07-09 10:03 | EKG ---
Test Reason : Blood Pressure : / mmHG Vent. Rate : 110 BPM Atrial Rate : 110 BPM P-R Int : 120 ms QRS Dur : 078 ms QT Int : 330 ms P-R-T Axes : 085 048 075 degrees QTc Int : 446 ms POOR DATA QUALITY, INTERPRETATION MAY BE ADVERSELY AFFECTED SINUS TACHYCARDIA NONSPECIFIC ST AND T WAVE ABNORMALITY ABNORMAL ECG Confirmed by Murali Sousa MD ([id number]) on 07/09/2018 10:03:01 AM Referred By: Confirmed By:Murali Sousa MD
--- NOTE | 2018-07-09 10:19 | CON.PULM ---
Consult Consult Specialty:: PULM/CCM Referred by:: MAICO Reason for Consultation:: SOB - History of Present Illness Chief Complaint: SOB History of Present Illness: 82 F, COPD on home O2 @ 2 L, and recent diagnosis of Lung Adenocarcinoma. Yesterday was the first session of RT and almost immediately after she suddenly became short of breath. No associated chest pain. No recent fever or chills. No hemoptysis. She does report that she recently needed to increase her use of Albuterol to several times a day. She was also recently started on Symbicort. No travel history or sick contacts. CXR: somewhat diffusely increased interstitial markings compared to previous imaging. - History Source History Provided By: Patient Limitations to Obtaining History: No Limitations - Past Medical History Cardio/Vascular: Yes: CAD, CHF, HTN Pulmonary: Yes: Bronchitis, Cancer, COPD, O2 Dependent. No: Asthma, Pulmonary Embolus, Sleep Apnea - Alcohol/Substance Use Hx Alcohol Use: No History of Substance Use: reports: None - Smoking History Smoking history: Unknown if ever smoked Have you smoked in the past 12 months: No If you are a former smoker, when did you quit?: 11 years ago - Social History ADL: Independent History of Recent Travel: No Home Medications - Allergies Allergies/Adverse Reactions: Allergies Allergy/AdvReac Type Severity Reaction Status Date / Time No Known Allergies Allergy Verified 04/19/18 14:12 - Home Medications Home Medications: Ambulatory Orders Metoprolol Tartrate 25 mg PO BID 07/18/16 Rosuvastatin Calcium [Crestor] 20 mg PO HS 07/18/16 Acetaminophen [Tylenol .Regular Strength -] 650 mg PO Q6H PRN tablet 05/01/18 Albuterol 0.083% Nebulizer [place] [Ventolin 0.083% Nebulizer Soln -] 1 amp NEB Q4H PRN #90 amp 05/01/18 Aspirin [ASA -] 81 mg PO DAILY #90 tab 05/01/18 Clopidogrel Bisulfate [Plavix -] 75 mg PO DAILY #90 tab 05/01/18 Tiotropium [place] [Spiriva Respimat] 2 puff IH DAILY #90 inhaler 05/01/18 Budesonide/Formeterol Fumarate [SYMBICORT 80/4.5mcg -] 2 inh PO BID 07/08/18 Furosemide [Lasix -] 20 mg PO ASDIR 07/08/18 Review of Systems - Review of Systems Constitutional: reports: Malaise. denies: Chills, Fever, Night Sweats Eyes: reports: No Symptoms HENT: reports: No Symptoms Neck: reports: No Symptoms Cardiovascular: reports: Shortness of Breath. denies: Chest Pain, Edema, Palpitations Respiratory: reports: Cough, SOB, SOB on Exertion, Wheezing. denies: Hemoptysis , Snoring Gastrointestinal: reports: No Symptoms Genitourinary: reports: No Symptoms Breasts: reports: No Symptoms Reported Musculoskeletal: reports: Muscle Pain Integumentary: reports: No Symptoms Neurological: reports: No Symptoms Endocrine: reports: No Symptoms Hematology/Lymphatic: reports: No Symptoms Psychiatric: reports: No Symptoms Physical Exam Vital Sings: Vital Signs Temperature 97.8 F 07/09/18 06:00 Pulse Rate 77 07/09/18 06:00 Respiratory Rate 20 07/09/18 06:00 Blood Pressure 141/61 07/09/18 06:00 O2 Sat by Pulse Oximetry (%) 94 L 07/08/18 23:20 Constitutional: Yes: Mild Distress, Thin Eyes: Yes: Conjunctiva Clear, EOM Intact HENT: Yes: Atraumatic, Normocephalic Neck: Yes: Supple, Trachea Midline Cardiovascular: Yes: Tachycardia Respiratory: Yes: Cough, Diminished, On Nasal O2, Rhonchi, SOB, SOB on Exertion , Tachypnea, Wheezes. No: Rales, Stridor ...Inspection: Yes: WNL ...Clubbing: No Gastrointestinal: Yes: Normal Bowel Sounds, Soft Renal/: Yes: WNL Musculoskeletal: Yes: WNL Extremities: Yes: WNL Edema: No Peripheral Pulses WNL: Yes Integumentary: Yes: WNL Neurological: Yes: WNL, Alert, Oriented ...Motor Strength: WNL Psychiatric: Yes: WNL, Alert, Oriented Labs: CBC, BMP 07/09/18 06:45 07/09/18 06:45 ABG Results ABG pH 7.27 (7.35-7.45) L 07/08/18 18:00 ABG pCO2 at Pt Temp 53.8 mmHg (35-45) H 07/08/18 18:00 ABG pO2 at Pt Temp 79.0 mmHg (68-100) 07/08/18 18:00 ABG HCO3 24.1 meq/L (22-26) 07/08/18 18:00 ABG O2 Sat (Measured) 92.9 % (90-98.9) 07/08/18 18:00 ABG O2 Content No Result Required. 07/08/18 18:00 ABG Base Excess -2.9 meq/l (-2-2) L 07/08/18 18:00 Imaging - Results Chest X-ray: Report Reviewed, Image Reviewed Problem List - Problems (1) Adenocarcinoma, lung Code(s): C34.90 - MALIGNANT NEOPLASM OF UNSP PART OF UNSP BRONCHUS OR LUNG (2) ASHD (arteriosclerotic heart disease) Code(s): I25.10 - ATHSCL HEART DISEASE OF [place] CORONARY ARTERY W/O ANG PCTRS (3) Anxiety and depression Code(s): F41.9 - ANXIETY DISORDER, UNSPECIFIED; F32.9 - MAJOR DEPRESSIVE DISORDER, SINGLE EPISODE, UNSPECIFIED (4) COPD (chronic obstructive pulmonary disease) Code(s): J44.9 - CHRONIC OBSTRUCTIVE PULMONARY DISEASE, UNSPECIFIED Qualifiers: COPD type: unspecified COPD Qualified Code(s): J44.9 - Chronic obstructive pulmonary disease, unspecified (5) COPD exacerbation Code(s): J44.1 - CHRONIC OBSTRUCTIVE PULMONARY DISEASE W (ACUTE) EXACERBATION (6) Cough Code(s): R05 - COUGH (7) Diastolic CHF Code(s): I50.30 - UNSPECIFIED DIASTOLIC (CONGESTIVE) HEART FAILURE (8) HTN (hypertension) Code(s): I10 - ESSENTIAL (PRIMARY) HYPERTENSION (9) Hyperlipidemia Code(s): E78.5 - HYPERLIPIDEMIA, UNSPECIFIED (10) Hypothyroid Code(s): E03.9 - HYPOTHYROIDISM, UNSPECIFIED (11) Shortness of breath Code(s): R06.02 - SHORTNESS OF BREATH Assessment/Plan Medrol O2 to maintain saturation 88% to 92% BD TX standing and PRN Daily Spiriva Noted empiric ABX: low suspicion of infectious process VTE prophylaxis No smoking On discharge should be on LAMA / LABA / ICS Will follow Thank you. Dr Carlos
[2018-07-09] MEDS ORDERED: AZITHROMYCIN IVPB 500 MG in DEXTROSE 5%-WATER - 250 ML IVPB SCH (10:30)
[2018-07-09] MEDS ORDERED: cefTRIAXone SODIUM 1 GM VIAL ONE (10:37)
[2018-07-09] MEDS ORDERED: DEXTROSE 5%-WATER - 50 ML IVPB ONE (10:38)
[2018-07-09] MEDS: CEFTRIAXONE 1 GM in DEXTROSE 5%-WATER - 50 ML IVPB SCH (10:42)
[2018-07-09] MEDS: ALBUTEROL SO4 0.083% IH SOL 2.5 MG/3 ML VIAL.NEB. NEB SCH ×3 (11:55→20:10)
[2018-07-09] MEDS: TIOTROPIUM BROMIDE 2.5 MCG (SPIRIVA) RESPIMAT INHALER IH SCH (12:09)
--- NOTE | 2018-07-09 13:10 | CONSULT ---
Consult Consult Specialty:: HEMATOLOGY-ONCOLOGY Referred by:: Shalini Tanner Reason for Consultation:: lung cancer - History of Present Illness Chief Complaint: shortness of breath History of Present Illness: 82 yr old woman with recently dx'd with lung adenocarcinoma, COPD on home O2 @2L , HTN, HLD, ACS s/p myocardial infarction x 2, brought in post-RT treatment yesterday due to trouble breathing. For past few days she has been having increased sob, worse with exertion and cough with phlegm production but unable to expectorate. she was seen in Dr. Kern's office on Sunday with increase in bronchodilator regimen but pt says it did provide much relief. RT yesterday was her first txment, she felt like she was about to and not able to catch her breath at all. She has been staying her daughter's house and using her's daughter's oxygen only when sitting, has not noted an increase in her O2 use. increased weight loss. denies chest pain, n/v, fevers, hemoptysis. - Past Medical History Cardio/Vascular: Yes: CAD, CHF, HTN Pulmonary: Yes: Bronchitis, Cancer, COPD, O2 Dependent. No: Asthma, Pulmonary Embolus, Sleep Apnea - Alcohol/Substance Use Hx Alcohol Use: No History of Substance Use: reports: None - Smoking History Smoking history: Unknown if ever smoked Have you smoked in the past 12 months: No If you are a former smoker, when did you quit?: 11 years ago - Social History ADL: Independent History of Recent Travel: No Home Medications - Allergies Allergies/Adverse Reactions: Allergies Allergy/AdvReac Type Severity Reaction Status Date / Time No Known Allergies Allergy Verified 04/19/18 14:12 - Home Medications Home Medications: Ambulatory Orders Metoprolol Tartrate 25 mg PO BID 07/18/16 Rosuvastatin Calcium [Crestor] 20 mg PO HS 07/18/16 Acetaminophen [Tylenol .Regular Strength -] 650 mg PO Q6H PRN tablet 05/01/18 Albuterol 0.083% Nebulizer [place] [Ventolin 0.083% Nebulizer Soln -] 1 amp NEB Q4H PRN #90 amp 05/01/18 Aspirin [ASA -] 81 mg PO DAILY #90 tab 05/01/18 Clopidogrel Bisulfate [Plavix -] 75 mg PO DAILY #90 tab 05/01/18 Tiotropium [place] [Spiriva Respimat] 2 puff IH DAILY #90 inhaler 05/01/18 Budesonide/Formeterol Fumarate [SYMBICORT 80/4.5mcg -] 2 inh PO BID 07/08/18 Furosemide [Lasix -] 20 mg PO ASDIR 07/08/18 Physical Exam Vital Signs: Vital Signs Temperature 97.8 F 07/09/18 06:00 Pulse Rate 77 07/09/18 06:00 Respiratory Rate 20 07/09/18 06:00 Blood Pressure 141/61 07/09/18 06:00 O2 Sat by Pulse Oximetry (%) 94 L 07/08/18 23:20 Constitutional: Yes: No Distress, Calm Eyes: Yes: Conjunctiva Clear, EOM Intact HENT: No: Hoarseness, Pharyngeal Erythema, Thrush Neck: Yes: Supple, Trachea Midline. No: Lymphadenopathy, Thyromegaly Cardiovascular: Yes: Regular Rate and Rhythm Respiratory: Yes: On Nasal O2, Poor Air Entry, Wheezes Gastrointestinal: Yes: Normal Bowel Sounds, Soft Edema: No Peripheral Pulses WNL: Yes Neurological: Yes: Alert, Oriented Labs: CBC, BMP 07/09/18 06:45 07/09/18 06:45 Assessment/Plan 82 yr old woman with lung adenocarcinoma with lung involvement s/p RT x1 presents with shortness of breath. Problem list: Lung adenocarcinoma s/p RT x1 COPD Plan: - copd management as per pulm - re-evaluation for Rt therapy as outpatient - nutrition consult for progressing weightloss
--- NOTE | 2018-07-09 13:10 | CON.CARD ---
Consult Consult Specialty:: cardiology Reason for Consultation:: shortness of breath - History of Present Illness Chief Complaint: Pt A&Ox3; OOB in chair; c/o dyspnea on mnimal exertion (has to stop mid-conversation to catch her breth multiple times). History of Present Illness: The patient is an 82 year old white female with a PMH of COPD (on 2L), Stage 3a NSCC lung cancer (currently on radiation), CAD s/p [place] (s/p cardiac stent x3), HTN, HLD was BIBEMS for acute onset of shortness of breath. Patient was completing her first radiation treatment today when she suddenly became short of breath. Denies chest pain, lightheadedness, nausea, diaphoresis. Grandson @ bedside assists in history, notes patient has been taking her Albuterol inhaler multiple times daily. Recent medication addition of Symbicort to her daily regimen. History limited as patient tachycardic, tachypneic @ presentation. NKDA Surgical: Cardiac Stent x3, lung biopsy PMD: Dr. Mary Beth Stein Cardiology: Dr. Bah Pulmonology: Dr. Kern/Dr. Velazquez - History Source History Provided By: Patient, Medical Record Limitations to Obtaining History: No Limitations - Past Medical History Cardio/Vascular: Yes: CAD, CHF, HTN Pulmonary: Yes: Bronchitis, Cancer, COPD, O2 Dependent. No: Asthma, Pulmonary Embolus, Sleep Apnea Psych: Yes: Anxiety, Depression - Alcohol/Substance Use Hx Alcohol Use: No History of Substance Use: reports: None - Smoking History Smoking history: Former smoker Have you smoked in the past 12 months: No If you are a former smoker, when did you quit?: 11 years ago - Social History Usual Living Arrangement: With Child ADL: Independent History of Recent Travel: No Home Medications - Allergies Allergies/Adverse Reactions: Allergies Allergy/AdvReac Type Severity Reaction Status Date / Time No Known Allergies Allergy Verified 04/19/18 14:12 - Home Medications Home Medications: Ambulatory Orders Metoprolol Tartrate 25 mg PO BID 07/18/16 Rosuvastatin Calcium [Crestor] 20 mg PO HS 07/18/16 Acetaminophen [Tylenol .Regular Strength -] 650 mg PO Q6H PRN tablet 05/01/18 Albuterol 0.083% Nebulizer [place] [Ventolin 0.083% Nebulizer Soln -] 1 amp NEB Q4H PRN #90 amp 05/01/18 Aspirin [ASA -] 81 mg PO DAILY #90 tab 05/01/18 Clopidogrel Bisulfate [Plavix -] 75 mg PO DAILY #90 tab 05/01/18 Tiotropium [place] [Spiriva Respimat] 2 puff IH DAILY #90 inhaler 05/01/18 Budesonide/Formeterol Fumarate [SYMBICORT 80/4.5mcg -] 2 inh PO BID 07/08/18 Furosemide [Lasix -] 20 mg PO ASDIR 07/08/18 Family Disease History - Family Disease History Family History: Denies Review of Systems - Review of Systems Constitutional: reports: Weakness Eyes: reports: No Symptoms HENT: reports: No Symptoms Neck: reports: No Symptoms Cardiovascular: reports: Shortness of Breath Respiratory: reports: SOB Gastrointestinal: reports: No Symptoms Genitourinary: reports: No Symptoms Breasts: reports: No Symptoms Reported Musculoskeletal: reports: Joint Pain, Muscle Weakness Integumentary: reports: No Symptoms Neurological: reports: Weakness Endocrine: reports: No Symptoms Hematology/Lymphatic: reports: No Symptoms Psychiatric: reports: Anxiety, Depression - Risk Factors Known Risk Factors: Yes: Age, Physical Inactivity, Smoking, Other (lung CA) Vital Signs: Vital Signs Temperature 97.8 F 07/09/18 06:00 Pulse Rate 77 07/09/18 06:00 Respiratory Rate 20 07/09/18 06:00 Blood Pressure 141/61 07/09/18 06:00 O2 Sat by Pulse Oximetry (%) 94 L 07/08/18 23:20 Constitutional: Yes: Anxious, Thin Eyes: Yes: WNL HENT: Yes: WNL Neck: Yes: WNL Respiratory: Yes: Diminished, SOB Gastrointestinal: Yes: WNL Renal/: No: Anuria Cardiovascular: Yes: WNL JVD: No Carotid Bruit: No PMI: Non-Displaced Heart Sounds: Yes: S1, S2 Murmur: Yes: Systolic Murmur, Grade 2 Musculoskeletal: Yes: Joint Stiffness, Muscle Weakness Extremities: Yes: Cool Edema: No Peripheral Pulses WNL: No Peripheral Pulses: 1+ Left Doralis Pedis, 1+ Right Dorsalis Pedis Integumentary: Yes: WNL Neurological: Yes: Alert, Oriented, Weakness Psychiatric: Yes: Alert, Oriented, Other (anxeity/depression) - Other Data Labs, Other Data: CBC, BMP 07/09/18 06:45 07/09/18 06:45 INR, PTT INR 1.01 (0.83-1.09) 07/08/18 16:43 Troponin, BNP 07/08/18 07/09/18 16:27 06:45 Troponin I 0.02 0.21 H B-Natriuretic Peptide 2531.99 H Troponin, BNP 07/08/18 07/09/18 16:27 06:45 Troponin I 0.02 0.21 H B-Natriuretic Peptide 2531.99 H Echo: Report Reviewed Ejection Fraction %: LVEF > or = 40 % Imaging - Results Chest X-ray: Image Reviewed (?mild congestive changes) EKG: Image Reviewed (sinus tachycardia; nonspecific STT changes) Problem List - Problems (1) Elevated troponin I level Assessment/Plan: 0.02-->0.21; normal CK EKG: sinus tachycardia; nonspecific STT changes. Pt likely has demand ischemia from exacerbation of COPD, diastolic CHF, CA, tachycardia. F/u trend of TNI. Given pt's advanced lung CA, would recommend conservative management of cardiac condition (she is on metoprolol, statin, ASA). Code(s): R74.8 - ABNORMAL LEVELS OF OTHER SERUM ENZYMES (2) Adenocarcinoma, lung Assessment/Plan: advanced COPD and lung CA. 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 Code(s): C34.90 - MALIGNANT NEOPLASM OF UNSP PART OF UNSP BRONCHUS OR LUNG (3) Shortness of breath Assessment/Plan: Lung CA; COPD; diastolic CHF. For CT chest Code(s): R06.02 - SHORTNESS OF BREATH (4) HTN (hypertension) Code(s): I10 - ESSENTIAL (PRIMARY) HYPERTENSION (5) Hyperlipidemia Code(s): E78.5 - HYPERLIPIDEMIA, UNSPECIFIED (6) Sepsis Assessment/Plan: Pt is on antibiotics; f/u c/s. Code(s): A41.9 - SEPSIS, UNSPECIFIED ORGANISM
[2018-07-09 13:48] LABS: URINE APPEARANCE SLCLOUDY; URINE BILIRUBIN NEGATIVE (<2.0 mg/dL); URINE COLOR AMBER; URINE GLUCOSE (UA) NEGATIVE (NEGATIVE); URINE KETONE NEGATIVE (NEGATIVE); URINE LEUK ESTERASE NEGATIVE (NEGATIVE); URINE NITRITE NEGATIVE (NEGATIVE); URINE PROTEIN 2+ (NEGATIVE)
[2018-07-09 14:15] LABS: EPI CELLS RARE /HPF (FEW); URINE HYALINE CAST 16 /lpf; URINE MUCUS MODERATE
--- NOTE | 2018-07-09 14:21 | PN ---
Teaching Attending Note Name of Resident: Ti Lopez ATTENDING PHYSICIAN STATEMENT I saw and evaluated the patient. I reviewed the resident's note and discussed the case with the resident. I agree with the resident's findings and plan as documented. SUBJECTIVE: Patient seen and examined 82 year old smoking history recently diagnosed with adenoca of lung . Had right chest wall involvement . Deemed non surgical. Begun on RT given day prior to admission and admitted with SOB and dyspnea Last Vital Signs Temp Pulse Resp BP Pulse Ox 97.8 F 77 20 141/61 98 07/09/18 06:00 07/09/18 06:00 07/09/18 06:00 07/09/18 06:00 07/09/18 09:00 HEENT: KE[place], EOM Intact Oropharynx: No thrush, No mucositis,dentures Neck: Supple Nodes: Without adenopathy Breasts: Without masses Cor: RSR, No murmurs, No gallops Lungs:rhonchi, diminished breath sounds Abd: Soft, Normal bowel sounds, No organomegaly Ext:No significant edema Skin: No rashes, Integument intact CBC, BMP 07/09/18 06:45 07/09/18 06:45 Current Medications Generic Name Dose Route Start Last Admin Trade Name Freq PRN Reason Stop Dose Admin Acetaminophen 650 mg 07/08/18 19:43 Tylenol - PO Q6H PRN PAIN Albuterol Sulfate 1 amp 07/08/18 19:43 07/09/18 04:59 Ventolin 0.083% Nebulizer Soln - NEB 1 amp Q4H PRN Administration SHORT OF BREATH/WHEEZING Albuterol Sulfate 1 amp 07/09/18 12:00 07/09/18 11:55 Ventolin 0.083% Nebulizer Soln - NEB 1 amp RQID JOHN Administration Aspirin 81 mg 07/09/18 10:00 07/09/18 09:09 Asa - PO 81 mg DAILY JOHN Administration Clopidogrel Bisulfate 75 mg 07/09/18 10:00 07/09/18 09:09 Plavix - PO 75 mg DAILY JOHN Administration Guaifenesin 10 ml 07/08/18 19:43 Robitussin - PO Q6H PRN COUGH Heparin Sodium (Porcine) 5,000 unit 07/08/18 22:00 07/09/18 09:10 Heparin - SQ 5,000 unit BID JOHN Administration Ceftriaxone Sodium 1 gm/ 50 mls @ 100 mls/hr 07/09/18 10:30 07/09/18 10:42 Dextrose IVPB 100 mls/hr DAILY JOHN Administration Azithromycin 500 mg in 250 mls @ 250 mls/hr 07/09/18 10:30 Zithromax 500mg Ivpb (Pre-Docked) IVPB DAILY [facility] Insulin Aspart 1 vial 07/08/18 22:00 07/09/18 11:38 Novolog Vial Sliding Scale - SQ 2 units ACHS JOHN Administration Protocol Methylprednisolone Sodium Succinate 60 mg 07/09/18 02:00 07/09/18 09:13 Solu-Medrol - IVPB 60 mg Q8H-IV JOHN Administration Metoprolol Tartrate 25 mg 07/08/18 22:00 07/09/18 09:09 Lopressor - PO 25 mg BID JOHN Administration Ranitidine HCl 150 mg 07/09/18 10:00 07/09/18 09:09 Zantac - PO 150 mg DAILY JOHN Administration Rosuvastatin Calcium 20 mg 07/08/18 22:00 07/08/18 23:47 Crestor - PO 20 mg HS JOHN Administration Tiotropium [place] 2 puff 07/09/18 10:00 07/09/18 12:09 Spiriva Respimat IH 2 puff DAILY JOHN Administration Impression: Adenoca of lung with chest wall involvement COPD S/P -RT x1 Plan: Would resume RT once pulmonary status is improved . May be too frail for combined RT/chemotherapy protocol. OBJECTIVE: ASSESSMENT AND PLAN:
[2018-07-09] MEDS ORDERED: ROSUVASTATIN CA 10 MG TABLET (FP) ONE (21:08)
[2018-07-09] MEDS ORDERED: INSULIN (NOVOLOG) ASPART 100 UNITS/ML 10ML VIAL ONE (21:08)
[2018-07-09] MEDS: ACETAMINOPHEN 325 MG TABLET (FP) PO PRN (21:20)
[2018-07-09] MEDS: ROSUVASTATIN CA 20 MG TABLET (FP) PO SCH (21:22)
[2018-07-10] MEDS: methylPREDNISolone NA SUCC 40 MG/1 ML VIAL IVPB SCH ×3 (02:20→18:03)
[2018-07-10] MEDS: ACETAMINOPHEN 325 MG TABLET (FP) PO PRN (02:25)
[2018-07-10] MEDS: INSULIN SLIDING SCALE (NOVOLOG) 1 VIAL SQ SCH ×4 (06:46→21:14)
[2018-07-10] MEDS: ALBUTEROL SO4 0.083% IH SOL 2.5 MG/3 ML VIAL.NEB. NEB SCH ×4 (07:30→20:20)
--- NOTE | 2018-07-10 07:30 | PN ---
Progress Note, Physician Chief Complaint: still with coughing but less; still SOB but less wheezing - Current Medication List Current Medications: Active Medications Acetaminophen (Tylenol -) 650 mg PO Q6H PRN PRN Reason: PAIN Last Admin: 07/10/18 02:25 Dose: 650 mg Albuterol Sulfate (Ventolin 0.083% Nebulizer Soln -) 1 amp NEB Q4H PRN PRN Reason: SHORT OF BREATH/WHEEZING Last Admin: 07/09/18 04:59 Dose: 1 amp Albuterol Sulfate (Ventolin 0.083% Nebulizer Soln -) 1 amp NEB RQID [facility] Last Admin: 07/09/18 20:10 Dose: 1 amp Aspirin (Asa -) 81 mg PO DAILY [facility] Last Admin: 07/09/18 09:09 Dose: 81 mg Clopidogrel Bisulfate (Plavix -) 75 mg PO DAILY [facility] Last Admin: 07/09/18 09:09 Dose: 75 mg Guaifenesin (Robitussin -) 10 ml PO Q6H PRN PRN Reason: COUGH Heparin Sodium (Porcine) (Heparin -) 5,000 unit SQ BID [facility] Last Admin: 07/09/18 21:22 Dose: 5,000 unit Ceftriaxone Sodium 1 gm/ (Dextrose) 50 mls @ 100 mls/hr IVPB DAILY [facility] Last Admin: 07/09/18 10:42 Dose: 100 mls/hr Azithromycin (Zithromax 500mg Ivpb (Pre-Docked)) 500 mg in 250 mls @ 250 mls/ hr IVPB DAILY [facility] Insulin Aspart (Novolog Vial Sliding Scale -) 1 vial SQ ACHS [facility]; Protocol Last Admin: 07/10/18 06:46 Dose: Not Given Methylprednisolone Sodium Succinate (Solu-Medrol -) 60 mg IVPB Q8H-IV [facility] Last Admin: 07/10/18 02:20 Dose: 60 mg Metoprolol Tartrate (Lopressor -) 25 mg PO BID [facility] Last Admin: 07/09/18 21:23 Dose: 25 mg Ranitidine HCl (Zantac -) 150 mg PO DAILY [facility] Last Admin: 07/09/18 09:09 Dose: 150 mg Rosuvastatin Calcium (Crestor -) 20 mg PO HS [facility] Last Admin: 07/09/18 21:22 Dose: 20 mg Tiotropium [place] (Spiriva Respimat) 2 puff IH DAILY [facility] Last Admin: 07/09/18 12:09 Dose: 2 puff - Objective Vital Signs: Vital Signs Temperature 97.5 F L 07/10/18 06:41 Pulse Rate 76 07/10/18 06:41 Respiratory Rate 20 07/10/18 06:41 Blood Pressure 124/70 07/10/18 06:41 O2 Sat by Pulse Oximetry (%) 98 07/09/18 21:00 Constitutional: Yes: No Distress, Calm Eyes: Yes: Conjunctiva Clear HENT: Yes: Atraumatic Neck: Yes: Supple Cardiovascular: Yes: Regular Rate and Rhythm Respiratory: Yes: Rales, Wheezes Gastrointestinal: No: Distention Genitourinary: No: CVA Tenderness - Left, CVA Tenderness - Right, Hematuria Musculoskeletal: No: Joint Stiffness, Joint Swelling Extremities: No: Cold, Cool, Cyanosis Edema: No Integumentary: No: Rash, Venous Stasis Changes Neurological: Yes: WNL, Alert, Oriented ...Motor Strength: WNL Psychiatric: Yes: WNL, Alert, Oriented. No: Agitated, Suicidal Ideation Labs: CBC, BMP 07/09/18 06:45 07/09/18 06:45 INR, PTT INR 1.01 (0.83-1.09) 07/08/18 16:43 - ....Imaging Other: Report Reviewed Assessment/Plan The patient is an 82 year old female with a PMH of COPD (on 2L), Stage 3a NSCC ( currently on radiation), CAD s/p [place] (s/p cardiac stent x3), HTN, HLD was BIBEMS for acute onset of shortness of breath. Patient was completing her first radiation treatment today when she became short of breath. Also coughing and having progressively worse SOB admit to inpt COPD exac iv steroids, nebs, O2 and iv antibiotics PULM< Cardiology eval ONC eval f/u labs DVT pfx prognosis guarded d/w pt and staff
[2018-07-10 07:50] LABS: BASO % 0.1 % (0-2.0); HEMATOCRIT 34.4 % (32.4-45.2); HEMOGLOBIN 11.8 GM/dL (10.7-15.3); LYMPH % 1.9 % (8-40); MCH 30.4 pg (25.7-33.7); MCHC 34.3 g/dl (32.0-36.0); MEAN CELL VOLUME 88.5 fl (80-96); MEAN PLT VOLUME 10.6 fl (7.5-11.1); MONO % 1.6 % (3.8-10.2); NEUT % 96.4 % (42.8-82.8); PLATELET COUNT 127 K/MM3 (134-434); RBC 3.89 M/mm3 (3.60-5.2); RDW 16.6 % (11.6-15.6); WHITE BLOOD COUNT 10.1 K/mm3 (4.0-10.0)
[2018-07-10 08:19] LABS: ALBUMIN 3.1 g/dl (3.4-5.0); ALK PHOS 67 U/L (45-117); ANION GAP 4 MMOL/L (8-16); BILIRUBIN,TOTAL 0.3 mg/dL (0.2-1); BLOOD UREA NITROGEN 26 mg/dL (7-18); CALCIUM 9.2 mg/dL (8.5-10.1); CHLORIDE 105 mmol/L (98-107); CO2 31 mmol/L (21-32); CREATININE 0.8 mg/dL (0.55-1.3); GLUCOSE,RANDOM 128 mg/dL (74-106); POTASSIUM 4.3 mmol/L (3.5-5.1); SGOT/AST 15 U/L (15-37); SGPT/ALT 14 U/L (13-61); SODIUM 139 mmol/L (136-145); TOT PROT 5.7 g/dl (6.4-8.2)
[2018-07-10] MEDS ORDERED: PT OWN MED DRAWER 7, Y5N ONE (09:40)
[2018-07-10] MEDS ORDERED: cefTRIAXone SODIUM 1 GM VIAL ONE (09:42)
[2018-07-10] MEDS ORDERED: DEXTROSE 5%-WATER - 50 ML IVPB ONE (09:42)
[2018-07-10] MEDS: CLOPIDOGREL BISULFATE 75 MG TABLET (FP) PO SCH (09:44)
[2018-07-10] MEDS: RANITIDINE HCL 150 MG TABLET (FP) PO SCH (09:45)
[2018-07-10] MEDS: ASPIRIN 81 MG CHEWABLE TABLETS PO SCH (09:45)
[2018-07-10] MEDS: METOPROLOL TARTRATE 25 MG TABLET (FP) PO SCH ×2 (09:45→21:13)
[2018-07-10] MEDS: HEPARIN NA (PORCINE) 5,000 UNITS/ML 1ML VIAL SQ SCH ×2 (09:48→21:14)
[2018-07-10] MEDS: CEFTRIAXONE 1 GM in DEXTROSE 5%-WATER - 50 ML IVPB SCH (09:48)
[2018-07-10] MEDS: TIOTROPIUM BROMIDE 2.5 MCG (SPIRIVA) RESPIMAT INHALER IH SCH (09:56)
[2018-07-10] MEDS: AZITHROMYCIN IVPB 500 MG/250 ML BAG IVPB SCH (09:59)
--- NOTE | 2018-07-10 11:31 | PN ---
Progress Note, Physician History of Present Illness: The patient is an 82 year old white female with a PMH of COPD (on 2L), Stage 3a NSCC lung cancer (currently on radiation), CAD s/p [place] (s/p cardiac stent x3), HTN, HLD was BIBEMS for acute onset of shortness of breath. Patient was completing her first radiation treatment today when she suddenly became short of breath. Denies chest pain, lightheadedness, nausea, diaphoresis. Grandson @ bedside assists in history, notes patient has been taking her Albuterol inhaler multiple times daily. Recent medication addition of Symbicort to her daily regimen. History limited as patient tachycardic, tachypneic @ presentation. NKDA Surgical: Cardiac Stent x3, lung biopsy PMD: Dr. Mary Beth Stein Cardiology: Dr. Bah Pulmonology: Dr. Kern/Dr. Velazquez - Current Medication List Current Medications: Active Medications Acetaminophen (Tylenol -) 650 mg PO Q6H PRN PRN Reason: PAIN Last Admin: 07/10/18 02:25 Dose: 650 mg Albuterol Sulfate (Ventolin 0.083% Nebulizer Soln -) 1 amp NEB Q4H PRN PRN Reason: SHORT OF BREATH/WHEEZING Last Admin: 07/09/18 04:59 Dose: 1 amp Albuterol Sulfate (Ventolin 0.083% Nebulizer Soln -) 1 amp NEB RQID JOHN Last Admin: 07/10/18 11:25 Dose: 1 amp Aspirin (Asa -) 81 mg PO DAILY [facility] [place] Last Admin: 07/10/18 09:45 Dose: 81 mg Clopidogrel Bisulfate (Plavix -) 75 mg PO DAILY [facility] Last Admin: 07/10/18 09:44 Dose: 75 mg Guaifenesin (Robitussin -) 10 ml PO Q6H PRN PRN Reason: COUGH Heparin Sodium (Porcine) (Heparin -) 5,000 unit SQ BID [facility] Last Admin: 07/10/18 09:48 Dose: 5,000 unit Ceftriaxone Sodium 1 gm/ (Dextrose) 50 mls @ 100 mls/hr IVPB DAILY JOHN Last Admin: 07/10/18 09:48 Dose: 100 mls/hr Azithromycin (Zithromax 500mg Ivpb (Pre-Docked)) 500 mg in 250 mls @ 250 mls/ hr IVPB DAILY [facility] Last Admin: 07/10/18 09:59 Dose: 250 mls/hr Insulin Aspart (Novolog Vial Sliding Scale -) 1 vial SQ ACHS [facility]; Protocol Last Admin: 07/10/18 06:46 Dose: Not Given Methylprednisolone Sodium Succinate (Solu-Medrol -) 60 mg IVPB Q8H-IV [facility] Last Admin: 07/10/18 09:45 Dose: 60 mg Metoprolol Tartrate (Lopressor -) 25 mg PO BID [facility] [place] Last Admin: 07/10/18 09:45 Dose: 25 mg Ranitidine HCl (Zantac -) 150 mg PO DAILY [facility] [place] Last Admin: 07/10/18 09:45 Dose: 150 mg Rosuvastatin Calcium (Crestor -) 20 mg PO HS [facility] Last Admin: 07/09/18 21:22 Dose: 20 mg Tiotropium [place] (Spiriva Respimat) 2 puff IH DAILY [facility] Last Admin: 07/10/18 09:56 Dose: 2 puff - Objective Vital Signs: Vital Signs Temperature 97.5 F L 07/10/18 06:41 Pulse Rate 76 07/10/18 06:41 Respiratory Rate 20 07/10/18 06:41 Blood Pressure 124/70 07/10/18 06:41 O2 Sat by Pulse Oximetry (%) 98 07/09/18 21:00 Eyes: Yes: WNL, Conjunctiva Clear, EOM Intact HENT: Yes: WNL, Atraumatic, Normocephalic Neck: Yes: WNL, Supple, Trachea Midline Cardiovascular: Yes: WNL, Regular Rate and Rhythm Respiratory: Yes: WNL, Regular, CTA Bilaterally Gastrointestinal: Yes: WNL, Normal Bowel Sounds Genitourinary: Yes: WNL Musculoskeletal: Yes: WNL Extremities: Yes: WNL Edema: No Integumentary: Yes: WNL Neurological: Yes: WNL, Alert, Oriented ...Motor Strength: WNL Psychiatric: Yes: WNL Labs: CBC, BMP 07/10/18 07:00 07/10/18 07:00 INR, PTT INR 1.01 (0.83-1.09) 07/08/18 16:43 Assessment/Plan - Problems (1) Elevated troponin I level Assessment/Plan: 0.02-->0.21; normal CK EKG: sinus tachycardia; nonspecific STT changes. Pt likely has demand ischemia from exacerbation of COPD, diastolic CHF, CA, tachycardia. F/u trend of TNI Given pt's advanced lung CA, would recommend conservative management of cardiac condition (she is on metoprolol, statin, ASA). Code(s): R74.8 - ABNORMAL LEVELS OF OTHER SERUM ENZYMES (2) Adenocarcinoma, lung Assessment/Plan: advanced COPD and lung CA. 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 Poor prognosis. Code(s): C34.90 - MALIGNANT NEOPLASM OF UNSP PART OF UNSP BRONCHUS OR LUNG (3) Shortness of breath Code(s): R06.02 - SHORTNESS OF BREATH (4) ASHD (arteriosclerotic heart disease) Code(s): I25.10 - ATHSCL HEART DISEASE OF [place] CORONARY ARTERY W/O ANG PCTRS (5) HTN (hypertension) Code(s): I10 - ESSENTIAL (PRIMARY) HYPERTENSION (6) Hyperlipidemia Code(s): E78.5 - HYPERLIPIDEMIA, UNSPECIFIED (7) Sepsis Assessment/Plan: Pt is on antibiotics. Code(s): A41.9 - SEPSIS, UNSPECIFIED ORGANISM
[2018-07-10 11:52] LABS: ANISOCYTOSIS 1+; MACROCYTOSIS 0; OVALOCYTE 1+; PLATELET ESTIMATE DECREASED
--- NOTE | 2018-07-10 14:48 | PN ---
Progress Note, Physician History of Present Illness: PULMONARY ALERT,OOB-CHAIR,STILL DYSPNEIC WHEN TALKING OR MIN EXERTION - Current Medication List Current Medications: Active Medications Acetaminophen (Tylenol -) 650 mg PO Q6H PRN PRN Reason: PAIN Last Admin: 07/10/18 02:25 Dose: 650 mg Albuterol Sulfate (Ventolin 0.083% Nebulizer Soln -) 1 amp NEB Q4H PRN PRN Reason: SHORT OF BREATH/WHEEZING Last Admin: 07/09/18 04:59 Dose: 1 amp Albuterol Sulfate (Ventolin 0.083% Nebulizer Soln -) 1 amp NEB RQID [facility] Last Admin: 07/10/18 11:25 Dose: 1 amp Aspirin (Asa -) 81 mg PO DAILY [facility] Last Admin: 07/10/18 09:45 Dose: 81 mg Budesonide/Formoterol Fumarate (Symbicort 80/4.5mcg -) 2 puff IH BID [facility] Clopidogrel Bisulfate (Plavix -) 75 mg PO DAILY [facility] Last Admin: 07/10/18 09:44 Dose: 75 mg Furosemide (Lasix -) 20 mg PO DAILY [facility] Guaifenesin (Robitussin -) 10 ml PO Q6H PRN PRN Reason: COUGH Heparin Sodium (Porcine) (Heparin -) 5,000 unit SQ BID [facility] Last Admin: 07/10/18 09:48 Dose: 5,000 unit Ceftriaxone Sodium 1 gm/ (Dextrose) 50 mls @ 100 mls/hr IVPB DAILY [facility] Last Admin: 07/10/18 09:48 Dose: 100 mls/hr Azithromycin (Zithromax 500mg Ivpb (Pre-Docked)) 500 mg in 250 mls @ 250 mls/ hr IVPB DAILY [facility] Last Admin: 07/10/18 09:59 Dose: 250 mls/hr Insulin Aspart (Novolog Vial Sliding Scale -) 1 vial SQ ACHS [facility]; Protocol Last Admin: 07/10/18 12:03 Dose: 4 units Methylprednisolone Sodium Succinate (Solu-Medrol -) 40 mg IVPB Q8H-IV [facility] Metoprolol Tartrate (Lopressor -) 25 mg PO BID [facility] Last Admin: 07/10/18 09:45 Dose: 25 mg Ranitidine HCl (Zantac -) 150 mg PO DAILY [facility] Last Admin: 01/09/19 09:45 Dose: 150 mg Rosuvastatin Calcium (Crestor -) 20 mg PO HS [facility] Last Admin: 07/09/18 21:22 Dose: 20 mg Tiotropium [place] (Spiriva Respimat) 2 puff IH DAILY [facility] Last Admin: 07/10/18 09:56 Dose: 2 puff - Objective Vital Signs: Vital Signs Temperature 97.7 F 07/10/18 09:00 Pulse Rate 92 H 07/10/18 09:00 Respiratory Rate 20 07/10/18 09:00 Blood Pressure 128/46 L 07/10/18 09:00 O2 Sat by Pulse Oximetry (%) 98 07/10/18 09:00 Constitutional: Yes: Calm, Thin, Other (DYSPNEIC) Eyes: Yes: WNL HENT: Yes: WNL Neck: Yes: WNL Cardiovascular: Yes: Regular Rate and Rhythm, S1, S2 Respiratory: Yes: Diminished Gastrointestinal: Yes: Normal Bowel Sounds, Soft Extremities: Yes: WNL Edema: No Labs: CBC, BMP 07/10/18 07:00 07/10/18 07:00 INR, PTT INR 1.01 (0.83-1.09) 07/08/18 16:43 Assessment/Plan Problem List - Problems (1) Adenocarcinoma, lung Code(s): C34.90 - MALIGNANT NEOPLASM OF UNSP PART OF UNSP BRONCHUS OR LUNG (2) ASHD (arteriosclerotic heart disease) Code(s): I25.10 - ATHSCL HEART DISEASE OF [place] CORONARY ARTERY W/O ANG PCTRS (3) Anxiety and depression Code(s): F41.9 - ANXIETY DISORDER, UNSPECIFIED; F32.9 - MAJOR DEPRESSIVE DISORDER, SINGLE EPISODE, UNSPECIFIED (4) COPD (chronic obstructive pulmonary disease) Code(s): J44.9 - CHRONIC OBSTRUCTIVE PULMONARY DISEASE, UNSPECIFIED Qualifiers: COPD type: unspecified COPD Qualified Code(s): J44.9 - Chronic obstructive pulmonary disease, unspecified (5) COPD exacerbation Code(s): J44.1 - CHRONIC OBSTRUCTIVE PULMONARY DISEASE W (ACUTE) EXACERBATION (6) Cough Code(s): R05 - COUGH (7) Diastolic CHF Code(s): I50.30 - UNSPECIFIED DIASTOLIC (CONGESTIVE) HEART FAILURE (8) HTN (hypertension) Code(s): I10 - ESSENTIAL (PRIMARY) HYPERTENSION (9) Hyperlipidemia Code(s): E78.5 - HYPERLIPIDEMIA, UNSPECIFIED (10) Hypothyroid Code(s): E03.9 - HYPOTHYROIDISM, UNSPECIFIED (11) Shortness of breath Code(s): R06.02 - SHORTNESS OF BREATH Assessment/Plan Medrol same dose O2 to maintain saturation 88% to 92% BD TX standing and PRN Daily Spiriva ABX: low suspicion of infectious process VTE prophylaxis On discharge should be on LAMA / LABA / ICS DR CARDOSO
--- NOTE | 2018-07-10 16:15 | PN ---
Progress Note (short form) - Note Progress Note: Patient seen and examined Remains dyspneic on minimal exertion Some chest discomfort Non productive cough Last Vital Signs Temp Pulse Resp BP Pulse Ox 98.4 F 86 18 133/61 98 07/10/18 14:52 07/10/18 14:52 07/10/18 14:52 07/10/18 14:52 07/10/18 09:00 HEENT: KEIRY, EOM Intact Oropharynx: No thrush, No mucositis, upper and lower dentures Cor: RSR, No murmurs, No gallops Lungs: diminished breath sounds bilaterally Abd: Soft, Normal bowel sounds, No organomegaly Ext:No significant edema Skin: No rashes, Integument intact CBC, BMP 07/10/18 07:00 07/10/18 07:00 Current Medications Generic Name Dose Route Start Last Admin Trade Name Freq PRN Reason Stop Dose Admin Acetaminophen 650 mg 07/08/18 19:43 07/10/18 02:25 Tylenol - PO 650 mg Q6H PRN Administration PAIN Albuterol Sulfate 1 amp 07/08/18 19:43 07/09/18 04:59 Ventolin 0.083% Nebulizer Soln - NEB 1 amp Q4H PRN Administration SHORT OF BREATH/WHEEZING Albuterol Sulfate 1 amp 07/09/18 12:00 07/10/18 15:24 Ventolin 0.083% Nebulizer Soln - NEB 1 amp RQID JOHN Administration Aspirin 81 mg 07/09/18 10:00 07/10/18 09:45 Asa - PO 81 mg DAILY JOHN Administration Budesonide/Formoterol Fumarate 2 puff 07/10/18 22:00 Symbicort 80/4.5mcg - IH BID JOHN Clopidogrel Bisulfate 75 mg 07/09/18 10:00 07/10/18 09:44 Plavix - PO 75 mg DAILY JOHN Administration Furosemide 20 mg 07/11/18 10:00 Lasix - PO DAILY JOHN Guaifenesin 10 ml 07/08/18 19:43 Robitussin - PO Q6H PRN COUGH Heparin Sodium (Porcine) 5,000 unit 07/08/18 22:00 07/10/18 09:48 Heparin - SQ 5,000 unit BID JOHN Administration Ceftriaxone Sodium 1 gm/ 50 mls @ 100 mls/hr 07/09/18 10:30 07/10/18 09:48 Dextrose IVPB 100 mls/hr DAILY JOHN Administration Azithromycin 500 mg in 250 mls @ 250 mls/hr 07/09/18 10:30 07/10/18 09:59 Zithromax 500mg Ivpb (Pre-Docked) IVPB 250 mls/hr DAILY JOHN Administration Insulin Aspart 1 vial 07/08/18 22:00 07/10/18 12:03 Novolog Vial Sliding Scale - SQ 4 units ACHS JOHN Administration Protocol Methylprednisolone Sodium Succinate 40 mg 07/10/18 13:54 Solu-Medrol - IVPB Q8H-IV JOHN Metoprolol Tartrate 25 mg 07/08/18 22:00 07/10/18 09:45 Lopressor - PO 25 mg BID JOHN Administration Ranitidine HCl 150 mg 07/09/18 10:00 07/10/18 09:45 Zantac - PO 150 mg DAILY JOHN Administration Rosuvastatin Calcium 20 mg 07/08/18 22:00 07/09/18 21:22 Crestor - PO 20 mg HS JOHN Administration Tiotropium [place] 2 puff 07/09/18 10:00 07/10/18 09:56 Spiriva Respimat IH 2 puff DAILY JOHN Administration Impression: Adenocarcinoma of lung COPD CAD Plan : Current therapy RT in future
[2018-07-10] MEDS ORDERED: ROSUVASTATIN CA 10 MG TABLET (FP) ONE (21:03)
[2018-07-10] MEDS ORDERED: INSULIN (NOVOLOG) ASPART 100 UNITS/ML 10ML VIAL ONE (21:03)
[2018-07-10] MEDS: BUDESONIDE/FORMETEROL FUMARATE 80/4.5 mcg INHALER IH SCH (21:14)
[2018-07-10] MEDS: ROSUVASTATIN CA 20 MG TABLET (FP) PO SCH (21:14)
[2018-07-11] MEDS: methylPREDNISolone NA SUCC 40 MG/1 ML VIAL IVPB SCH ×3 (01:01→17:41)
[2018-07-11] MEDS: INSULIN SLIDING SCALE (NOVOLOG) 1 VIAL SQ SCH ×4 (06:26→21:35)
[2018-07-11] MEDS: ALBUTEROL SO4 0.083% IH SOL 2.5 MG/3 ML VIAL.NEB. NEB SCH ×4 (07:40→20:44)
--- NOTE | 2018-07-11 08:41 | PN ---
Progress Note, Physician Chief Complaint: OOB to chair still SOB on nebs, had "bad night" SOB, coughing, also anxious b/o her daughter's condition now a little better after nebs - Current Medication List Current Medications: Active Medications Acetaminophen (Tylenol -) 650 mg PO Q6H PRN PRN Reason: PAIN Last Admin: 07/10/18 02:25 Dose: 650 mg Albuterol Sulfate (Ventolin 0.083% Nebulizer Soln -) 1 amp NEB Q4H PRN PRN Reason: SHORT OF BREATH/WHEEZING Last Admin: 07/09/18 04:59 Dose: 1 amp Albuterol Sulfate (Ventolin 0.083% Nebulizer Soln -) 1 amp NEB RQID [facility] Last Admin: 07/10/18 20:20 Dose: 1 amp Aspirin (Asa -) 81 mg PO DAILY [facility] Last Admin: 07/10/18 09:45 Dose: 81 mg Budesonide/Formoterol Fumarate (Symbicort 80/4.5mcg -) 2 puff IH BID [facility] Last Admin: 07/10/18 21:14 Dose: 2 puff Clopidogrel Bisulfate (Plavix -) 75 mg PO DAILY [facility] Last Admin: 07/10/18 09:44 Dose: 75 mg Furosemide (Lasix -) 20 mg PO DAILY [facility] Guaifenesin (Robitussin -) 10 ml PO Q6H PRN PRN Reason: COUGH Heparin Sodium (Porcine) (Heparin -) 5,000 unit SQ BID [facility] Last Admin: 07/10/18 21:14 Dose: 5,000 unit Ceftriaxone Sodium 1 gm/ (Dextrose) 50 mls @ 100 mls/hr IVPB DAILY [facility] Last Admin: 07/10/18 09:48 Dose: 100 mls/hr Azithromycin (Zithromax 500mg Ivpb (Pre-Docked)) 500 mg in 250 mls @ 250 mls/ hr IVPB DAILY [facility] Last Admin: 07/10/18 09:59 Dose: 250 mls/hr Insulin Aspart (Novolog Vial Sliding Scale -) 1 vial SQ ACHS [facility]; Protocol Last Admin: 07/11/18 06:26 Dose: 2 units Methylprednisolone Sodium Succinate (Solu-Medrol -) 40 mg IVPB Q8H-IV [facility] Last Admin: 07/11/18 01:01 Dose: 40 mg Metoprolol Tartrate (Lopressor -) 25 mg PO BID [facility] Last Admin: 07/10/18 21:13 Dose: 25 mg Ranitidine HCl (Zantac -) 150 mg PO DAILY [facility] Last Admin: 07/10/18 09:45 Dose: 150 mg Rosuvastatin Calcium (Crestor -) 20 mg PO HS [facility] Last Admin: 07/10/18 21:14 Dose: 20 mg Tiotropium [place] (Spiriva Respimat) 2 puff IH DAILY [facility] Last Admin: 07/10/18 09:56 Dose: 2 puff - Objective Vital Signs: Vital Signs Temperature 97.6 F 07/11/18 06:00 Pulse Rate 91 H 07/11/18 06:00 Respiratory Rate 18 07/11/18 06:00 Blood Pressure 140/76 07/11/18 06:00 O2 Sat by Pulse Oximetry (%) 98 07/10/18 20:41 Constitutional: Yes: No Distress, Calm Eyes: Yes: Conjunctiva Clear HENT: Yes: Atraumatic Neck: Yes: Supple Cardiovascular: Yes: Regular Rate and Rhythm Respiratory: Yes: Rales, Wheezes Gastrointestinal: Yes: Soft. No: Distention Genitourinary: No: CVA Tenderness - Left, CVA Tenderness - Right Musculoskeletal: No: Joint Stiffness, Joint Swelling Extremities: No: Cold, Cool, Cyanosis Edema: No Integumentary: No: Rash, Venous Stasis Changes Neurological: Yes: WNL, Alert, Oriented ...Motor Strength: WNL Psychiatric: Yes: WNL, Alert, Oriented. No: Agitated, Suicidal Ideation Labs: CBC, BMP 07/10/18 07:00 07/10/18 07:00 INR, PTT INR 1.01 (0.83-1.09) 07/08/18 16:43 - ....Imaging Other: Report Reviewed Assessment/Plan The patient is an 82 year old female with a PMH of COPD (on 2L), Stage 3a NSCC ( currently on radiation), CAD s/p [place] (s/p cardiac stent x3), HTN, HLD \\admitted with acute onset of shortness of breath, acute on chronic COPD exac and bronchitis iv steroids, nebs, O2 and iv antibiotics PULM< Cardiology eval ONC eval f/u labs DVT pfx prognosis guarded d/w pt and staff
--- NOTE | 2018-07-11 08:53 | PN ---
Progress Note (short form) - Note Progress Note: OOB to chair. Still with GAY on minimal exertion. No hemoptysis. CT: new fluid/atelectasis in the right fissure / chronic lung disease / no gross change in lung masses on the right / mild increase in non-specific infiltrates Intake & Output 07/08/18 07/09/18 07/10/18 07/11/18 23:59 23:59 23:59 23:59 Intake Total 780 350 6666 480 Balance 846 709 8027 480 Weight 115 lb 115 lb Last Vital Signs Temp Pulse Resp BP Pulse Ox 97.6 F 91 H 18 140/76 98 07/11/18 06:00 07/11/18 06:00 07/11/18 06:00 07/11/18 06:00 07/10/18 20:41 Active Medications Acetaminophen (Tylenol -) 650 mg PO Q6H PRN PRN Reason: PAIN Last Admin: 07/10/18 02:25 Dose: 650 mg Albuterol Sulfate (Ventolin 0.083% Nebulizer Soln -) 1 amp NEB Q4H PRN PRN Reason: SHORT OF BREATH/WHEEZING Last Admin: 07/09/18 04:59 Dose: 1 amp Albuterol Sulfate (Ventolin 0.083% Nebulizer Soln -) 1 amp NEB RQID [facility] Last Admin: 07/10/18 20:20 Dose: 1 amp Aspirin (Asa -) 81 mg PO DAILY [facility] Last Admin: 07/10/18 09:45 Dose: 81 mg Budesonide/Formoterol Fumarate (Symbicort 80/4.5mcg -) 2 puff IH BID [facility] Last Admin: 07/10/18 21:14 Dose: 2 puff Clopidogrel Bisulfate (Plavix -) 75 mg PO DAILY [facility] Last Admin: 07/10/18 09:44 Dose: 75 mg Furosemide (Lasix -) 20 mg PO DAILY [facility] Guaifenesin (Robitussin -) 10 ml PO Q6H PRN PRN Reason: COUGH Heparin Sodium (Porcine) (Heparin -) 5,000 unit SQ BID [facility] Last Admin: 07/10/18 21:14 Dose: 5,000 unit Ceftriaxone Sodium 1 gm/ (Dextrose) 50 mls @ 100 mls/hr IVPB DAILY [facility] Last Admin: 07/10/18 09:48 Dose: 100 mls/hr Azithromycin (Zithromax 500mg Ivpb (Pre-Docked)) 500 mg in 250 mls @ 250 mls/ hr IVPB DAILY [facility] Last Admin: 07/10/18 09:59 Dose: 250 mls/hr Insulin Aspart (Novolog Vial Sliding Scale -) 1 vial SQ ACHS [facility]; Protocol Last Admin: 07/11/18 06:26 Dose: 2 units Methylprednisolone Sodium Succinate (Solu-Medrol -) 40 mg IVPB Q8H-IV [facility] Last Admin: 07/11/18 01:01 Dose: 40 mg Metoprolol Tartrate (Lopressor -) 25 mg PO BID [facility] Last Admin: 07/10/18 21:13 Dose: 25 mg Ranitidine HCl (Zantac -) 150 mg PO DAILY [facility] Last Admin: 07/10/18 09:45 Dose: 150 mg Rosuvastatin Calcium (Crestor -) 20 mg PO HS [facility] Last Admin: 07/10/18 21:14 Dose: 20 mg Tiotropium [place] (Spiriva Respimat) 2 puff IH DAILY [facility] Last Admin: 07/10/18 09:56 Dose: 2 puff Constitutional: Yes: Mildly tachypneic at rest, Thin Eyes: Yes: Conjunctiva Clear, EOM Intact HENT: Yes: Atraumatic, Normocephalic Neck: Yes: Supple, Trachea Midline Cardiovascular: Yes: Tachycardia Respiratory: Yes: Cough, Diminished, On Nasal O2, Rhonchi, SOB, SOB on Exertion , Tachypnea, Wheezes. No: Rales, Stridor ...Inspection: Yes: WNL ...Clubbing: No Gastrointestinal: Yes: Normal Bowel Sounds, Soft Renal/: Yes: WNL Musculoskeletal: Yes: WNL Extremities: Yes: WNL Edema: No Peripheral Pulses WNL: Yes Integumentary: Yes: WNL Neurological: Yes: WNL, Alert, Oriented ...Motor Strength: WNL Psychiatric: Yes: WNL, Alert, Oriented Labs: Laboratory Results - last 24 hr 07/10/18 07/10/18 07/10/18 07:00 11:37 12:50 Neutrophils % (Manual) 96.9 H Band Neutrophils % 0.0 Lymphocytes % (Manual) 1.0 L D Monocytes % (Manual) 0 L D Eosinophils % (Manual) 0.0 Basophils % (Manual) 0.0 Myelocytes % (Man) 0 D Promyelocytes % (Man) 0 Blast Cells % (Manual) 0 Metamyelocytes 0 Hypochromia 0 Platelet Estimate Decreased Polychromasia 1+ Poikilocytosis 1+ Anisocytosis 1+ Microcytosis 1+ Macrocytosis 0 Ovalocytes 1+ [place] Cells 1+ POC Glucometer 222 Creatine Kinase 60 Troponin I 0.19 H 07/10/18 07/10/18 07/11/18 18:06 21:10 06:00 Neutrophils % (Manual) Band Neutrophils % Lymphocytes % (Manual) Monocytes % (Manual) Eosinophils % (Manual) Basophils % (Manual) Myelocytes % (Man) Promyelocytes % (Man) Blast Cells % (Manual) Metamyelocytes Hypochromia Platelet Estimate Polychromasia Poikilocytosis Anisocytosis Microcytosis Macrocytosis Ovalocytes [place] Cells POC Glucometer 151 145 158 Creatine Kinase Troponin I Problem List - Problems (1) Adenocarcinoma, lung Code(s): C34.90 - MALIGNANT NEOPLASM OF UNSP PART OF UNSP BRONCHUS OR LUNG (2) ASHD (arteriosclerotic heart disease) Code(s): I25.10 - ATHSCL HEART DISEASE OF [place] CORONARY ARTERY W/O ANG PCTRS (3) Anxiety and depression Code(s): F41.9 - ANXIETY DISORDER, UNSPECIFIED; F32.9 - MAJOR DEPRESSIVE DISORDER, SINGLE EPISODE, UNSPECIFIED (4) COPD (chronic obstructive pulmonary disease) Code(s): J44.9 - CHRONIC OBSTRUCTIVE PULMONARY DISEASE, UNSPECIFIED Qualifiers: COPD type: unspecified COPD Qualified Code(s): J44.9 - Chronic obstructive pulmonary disease, unspecified (5) COPD exacerbation Code(s): J44.1 - CHRONIC OBSTRUCTIVE PULMONARY DISEASE W (ACUTE) EXACERBATION (6) Cough Code(s): R05 - COUGH (7) Diastolic CHF Code(s): I50.30 - UNSPECIFIED DIASTOLIC (CONGESTIVE) HEART FAILURE (8) HTN (hypertension) Code(s): I10 - ESSENTIAL (PRIMARY) HYPERTENSION (9) Hyperlipidemia Code(s): E78.5 - HYPERLIPIDEMIA, UNSPECIFIED (10) Hypothyroid Code(s): E03.9 - HYPOTHYROIDISM, UNSPECIFIED (11) Shortness of breath Code(s): R06.02 - SHORTNESS OF BREATH Assessment/Plan Medrol at current dose O2 to maintain saturation 88% to 92% BD TX standing and PRN Daily Spiriva Noted empiric ABX: would give 7 day course VTE prophylaxis No smoking On discharge should be on LAMA / LABA / ICS Dr Carlos Problem List - Problems (1) Adenocarcinoma, lung Code(s): C34.90 - MALIGNANT NEOPLASM OF UNSP PART OF UNSP BRONCHUS OR LUNG (2) ASHD (arteriosclerotic heart disease) Code(s): I25.10 - ATHSCL HEART DISEASE OF [place] CORONARY ARTERY W/O ANG PCTRS (3) Anxiety and depression Code(s): F41.9 - ANXIETY DISORDER, UNSPECIFIED; F32.9 - MAJOR DEPRESSIVE DISORDER, SINGLE EPISODE, UNSPECIFIED (4) COPD (chronic obstructive pulmonary disease) Code(s): J44.9 - CHRONIC OBSTRUCTIVE PULMONARY DISEASE, UNSPECIFIED Qualifiers: COPD type: unspecified COPD Qualified Code(s): J44.9 - Chronic obstructive pulmonary disease, unspecified (5) COPD exacerbation Code(s): J44.1 - CHRONIC OBSTRUCTIVE PULMONARY DISEASE W (ACUTE) EXACERBATION (6) Cough Code(s): R05 - COUGH (7) Diastolic CHF Code(s): I50.30 - UNSPECIFIED DIASTOLIC (CONGESTIVE) HEART FAILURE (8) HTN (hypertension) Code(s): I10 - ESSENTIAL (PRIMARY) HYPERTENSION (9) Hyperlipidemia Code(s): E78.5 - HYPERLIPIDEMIA, UNSPECIFIED (10) Hypothyroid Code(s): E03.9 - HYPOTHYROIDISM, UNSPECIFIED (11) Shortness of breath Code(s): R06.02 - SHORTNESS OF BREATH
[2018-07-11] MEDS ORDERED: DEXTROSE 5%-WATER - 50 ML IVPB ONE (09:33)
[2018-07-11] MEDS ORDERED: cefTRIAXone SODIUM 1 GM VIAL ONE (09:33)
[2018-07-11] MEDS: CEFTRIAXONE 1 GM in DEXTROSE 5%-WATER - 50 ML IVPB SCH (09:55)
[2018-07-11] MEDS: RANITIDINE HCL 150 MG TABLET (FP) PO SCH (09:56)
[2018-07-11] MEDS: ASPIRIN 81 MG CHEWABLE TABLETS PO SCH (09:56)
[2018-07-11] MEDS: HEPARIN NA (PORCINE) 5,000 UNITS/ML 1ML VIAL SQ SCH ×2 (09:56→21:34)
[2018-07-11] MEDS: CLOPIDOGREL BISULFATE 75 MG TABLET (FP) PO SCH (09:56)
[2018-07-11] MEDS: METOPROLOL TARTRATE 25 MG TABLET (FP) PO SCH ×2 (09:56→21:34)
[2018-07-11] MEDS: TIOTROPIUM BROMIDE 2.5 MCG (SPIRIVA) RESPIMAT INHALER IH SCH (10:00)
[2018-07-11] MEDS: BUDESONIDE/FORMETEROL FUMARATE 80/4.5 mcg INHALER IH SCH ×2 (10:00→21:34)
[2018-07-11] MEDS: FUROSEMIDE 20 MG TABLET (FP) PO SCH (10:08)
[2018-07-11] MEDS: AZITHROMYCIN IVPB 500 MG/250 ML BAG IVPB SCH (10:48)
[2018-07-11] MEDS ORDERED: ROSUVASTATIN CA 10 MG TABLET (FP) ONE (20:46)
[2018-07-11] MEDS ORDERED: INSULIN (NOVOLOG) ASPART 100 UNITS/ML 10ML VIAL ONE (20:46)
[2018-07-11] MEDS: ROSUVASTATIN CA 20 MG TABLET (FP) PO SCH (21:34)
[2018-07-11] MEDS: PANTOPRAZOLE 40 MG TABLET (FP) PO SCH (23:08)
[2018-07-12] MEDS: methylPREDNISolone NA SUCC 40 MG/1 ML VIAL IVPB SCH ×3 (01:26→21:42)
[2018-07-12] MEDS: INSULIN SLIDING SCALE (NOVOLOG) 1 VIAL SQ SCH ×4 (06:06→21:45)
[2018-07-12] MEDS: ALBUTEROL SO4 0.083% IH SOL 2.5 MG/3 ML VIAL.NEB. NEB SCH ×4 (07:35→20:04)
[2018-07-12 07:55] LABS: BASO % 0.1 % (0-2.0); HEMATOCRIT 35.4 % (32.4-45.2); HEMOGLOBIN 11.1 GM/dL (10.7-15.3); LYMPH % 2.2 % (8-40); MCH 27.9 pg (25.7-33.7); MCHC 31.3 g/dl (32.0-36.0); MEAN CELL VOLUME 89.3 fl (80-96); MEAN PLT VOLUME 10.4 fl (7.5-11.1); MONO % 1.5 % (3.8-10.2); NEUT % 96.2 % (42.8-82.8); PLATELET COUNT 97 K/MM3 (134-434); RBC 3.97 M/mm3 (3.60-5.2); RDW 16.8 % (11.6-15.6); WHITE BLOOD COUNT 6.9 K/mm3 (4.0-10.0)
[2018-07-12 08:17] LABS: ALBUMIN 2.8 g/dl (3.4-5.0); ALK PHOS 55 U/L (45-117); ANION GAP 4 MMOL/L (8-16); BILIRUBIN,TOTAL 0.2 mg/dL (0.2-1); BLOOD UREA NITROGEN 27 mg/dL (7-18); CHLORIDE 101 mmol/L (98-107); CO2 34 mmol/L (21-32); CREATININE 0.7 mg/dL (0.55-1.3); GLUCOSE,RANDOM 114 mg/dL (74-106); SGOT/AST 40 U/L (15-37); SGPT/ALT 33 U/L (13-61); SODIUM 139 mmol/L (136-145); TOT PROT 5.3 g/dl (6.4-8.2)
--- NOTE | 2018-07-12 08:33 | PN ---
Progress Note, Physician Chief Complaint: coughing, wheezing, occasional SOB also had one episode of painless hematuria, h/o kidney stones; called; check US renal and pelvic; SAC stopped d/w pt risks DVT/PE; she is ambulatory spends a lot of time in chair not in bed - Current Medication List Current Medications: Active Medications Acetaminophen (Tylenol -) 650 mg PO Q6H PRN PRN Reason: PAIN Last Admin: 07/10/18 02:25 Dose: 650 mg Albuterol Sulfate (Ventolin 0.083% Nebulizer Soln -) 1 amp NEB Q4H PRN PRN Reason: SHORT OF BREATH/WHEEZING Last Admin: 07/09/18 04:59 Dose: 1 amp Albuterol Sulfate (Ventolin 0.083% Nebulizer Soln -) 1 amp NEB RQID [facility] Last Admin: 07/12/18 07:35 Dose: 1 amp Aspirin (Asa -) 81 mg PO DAILY [facility] Last Admin: 07/11/18 09:56 Dose: 81 mg Budesonide/Formoterol Fumarate (Symbicort 80/4.5mcg -) 2 puff IH BID [facility] Last Admin: 07/11/18 21:34 Dose: 2 puff Furosemide (Lasix -) 20 mg PO DAILY [facility] Last Admin: 07/11/18 10:08 Dose: 20 mg Guaifenesin (Robitussin -) 10 ml PO Q6H PRN PRN Reason: COUGH Ceftriaxone Sodium 1 gm/ (Dextrose) 50 mls @ 100 mls/hr IVPB DAILY [facility] Last Admin: 07/11/18 09:55 Dose: 100 mls/hr Azithromycin (Zithromax 500mg Ivpb (Pre-Docked)) 500 mg in 250 mls @ 250 mls/ hr IVPB DAILY [facility] Last Admin: 07/11/18 10:48 Dose: 250 mls/hr Insulin Aspart (Novolog Vial Sliding Scale -) 1 vial SQ ACHS [facility]; Protocol Last Admin: 07/12/18 06:06 Dose: Not Given Methylprednisolone Sodium Succinate (Solu-Medrol -) 40 mg IVPB Q8H-IV [facility] Last Admin: 07/12/18 01:26 Dose: 40 mg Metoprolol Tartrate (Lopressor -) 25 mg PO BID [facility] Last Admin: 07/11/18 21:34 Dose: 25 mg Pantoprazole Sodium (Protonix -) 40 mg PO DAILY [facility] Last Admin: 07/11/18 23:08 Dose: 40 mg Ranitidine HCl (Zantac -) 150 mg PO DAILY [facility] Last Admin: 07/11/18 09:56 Dose: 150 mg Rosuvastatin Calcium (Crestor -) 20 mg PO HS [facility] Last Admin: 07/11/18 21:34 Dose: 20 mg Tiotropium [place] (Spiriva Respimat) 2 puff IH DAILY [facility] Last Admin: 07/11/18 10:00 Dose: 2 puff - Objective Vital Signs: Vital Signs Temperature 97.5 F L 07/12/18 05:38 Pulse Rate 72 07/12/18 05:38 Respiratory Rate 20 07/12/18 05:38 Blood Pressure 116/61 07/12/18 05:38 O2 Sat by Pulse Oximetry (%) 100 07/11/18 22:39 Constitutional: Yes: No Distress Eyes: Yes: Conjunctiva Clear HENT: Yes: Atraumatic Neck: Yes: Supple Cardiovascular: Yes: Regular Rate and Rhythm Respiratory: Yes: Rales, Wheezes Gastrointestinal: Yes: Soft. No: Tenderness Genitourinary: Yes: Hematuria. No: CVA Tenderness - Left, CVA Tenderness - Right Musculoskeletal: No: Joint Stiffness, Joint Swelling Extremities: No: Cold, Cool Edema: No Neurological: Yes: WNL, Alert, Oriented ...Motor Strength: WNL Psychiatric: Yes: WNL, Alert, Oriented. No: Agitated Labs: CBC, BMP 07/12/18 06:30 07/12/18 06:30 INR, PTT INR 1.01 (0.83-1.09) 07/08/18 16:43 - ....Imaging Other: Report Reviewed Assessment/Plan The patient is an 82 year old female with a PMH of COPD (on 2L), Stage 3a NSCC ( currently on radiation), CAD s/p [place] (s/p cardiac stent x3), HTN, HLD \admitted with acute onset of shortness of breath, acute on chronic COPD exac and bronchitis iv steroids, nebs, O2 and iv antibiotics PULM< Cardiology f/u eval; stopped heparin sq and plavix ONC eval f/u labs DVT pfx prognosis guarded d/w pt and staff
[2018-07-12] MEDS ORDERED: PT OWN MED DRAWER 7, Y5N ONE (09:24)
[2018-07-12] MEDS ORDERED: DEXTROSE 5%-WATER - 50 ML IVPB ONE (09:25)
[2018-07-12] MEDS ORDERED: cefTRIAXone SODIUM 1 GM VIAL ONE (09:25)
[2018-07-12] MEDS: PANTOPRAZOLE 40 MG TABLET (FP) PO SCH (09:30)
[2018-07-12] MEDS: AZITHROMYCIN IVPB 500 MG/250 ML BAG IVPB SCH (09:30)
[2018-07-12] MEDS: METOPROLOL TARTRATE 25 MG TABLET (FP) PO SCH ×2 (09:30→21:42)
[2018-07-12] MEDS: FUROSEMIDE 20 MG TABLET (FP) PO SCH (09:30)
[2018-07-12] MEDS: RANITIDINE HCL 150 MG TABLET (FP) PO SCH (09:30)
[2018-07-12] MEDS: ASPIRIN 81 MG CHEWABLE TABLETS PO SCH (09:30)
[2018-07-12] MEDS: BUDESONIDE/FORMETEROL FUMARATE 80/4.5 mcg INHALER IH SCH ×2 (09:31→21:42)
[2018-07-12] MEDS: TIOTROPIUM BROMIDE 2.5 MCG (SPIRIVA) RESPIMAT INHALER IH SCH (09:31)
[2018-07-12] MEDS: CEFTRIAXONE 1 GM in DEXTROSE 5%-WATER - 50 ML IVPB SCH (10:58)
[2018-07-12 11:10] LABS: ANISOCYTOSIS 1+; MACROCYTOSIS 0; OVALOCYTE 1+; PLATELET ESTIMATE DECREASED; TEAR DROP CELLS 1+
--- NOTE | 2018-07-12 13:09 | PN ---
Progress Note, Physician History of Present Illness: pulmonary alert,comfortable at rest + rodriguez,-cp - Current Medication List Current Medications: Active Medications Acetaminophen (Tylenol -) 650 mg PO Q6H PRN PRN Reason: PAIN Last Admin: 07/10/18 02:25 Dose: 650 mg Albuterol Sulfate (Ventolin 0.083% Nebulizer Soln -) 1 amp NEB Q4H PRN PRN Reason: SHORT OF BREATH/WHEEZING Last Admin: 07/09/18 04:59 Dose: 1 amp Albuterol Sulfate (Ventolin 0.083% Nebulizer Soln -) 1 amp NEB RQID [facility] Last Admin: 07/12/18 07:35 Dose: 1 amp Aspirin (Asa -) 81 mg PO DAILY [facility] Last Admin: 07/12/18 09:30 Dose: 81 mg Budesonide/Formoterol Fumarate (Symbicort 80/4.5mcg -) 2 puff IH BID [facility] Last Admin: 07/12/18 09:31 Dose: 2 puff Furosemide (Lasix -) 20 mg PO DAILY [facility] Last Admin: 07/12/18 09:30 Dose: 20 mg Guaifenesin (Robitussin -) 10 ml PO Q6H PRN PRN Reason: COUGH Ceftriaxone Sodium 1 gm/ (Dextrose) 50 mls @ 100 mls/hr IVPB DAILY [facility] Last Admin: 07/12/18 10:58 Dose: 100 mls/hr Azithromycin (Zithromax 500mg Ivpb (Pre-Docked)) 500 mg in 250 mls @ 250 mls/ hr IVPB DAILY [facility] Last Admin: 07/12/18 09:30 Dose: 250 mls/hr Insulin Aspart (Novolog Vial Sliding Scale -) 1 vial SQ ACHS [facility]; Protocol Last Admin: 07/12/18 11:38 Dose: 2 units Methylprednisolone Sodium Succinate (Solu-Medrol -) 40 mg IVPB Q8H-IV [facility] Last Admin: 07/12/18 09:30 Dose: 40 mg Metoprolol Tartrate (Lopressor -) 25 mg PO BID [facility] Last Admin: 07/12/18 09:30 Dose: 25 mg Pantoprazole Sodium (Protonix -) 40 mg PO DAILY [facility] Last Admin: 07/12/18 09:30 Dose: 40 mg Ranitidine HCl (Zantac -) 150 mg PO DAILY [facility] Last Admin: 07/12/18 09:30 Dose: 150 mg Rosuvastatin Calcium (Crestor -) 20 mg PO HS [facility] Last Admin: 07/11/18 21:34 Dose: 20 mg Tiotropium [place] (Spiriva Respimat) 2 puff IH DAILY [facility] Last Admin: 07/12/18 09:31 Dose: 2 puff - Objective Vital Signs: Vital Signs Temperature 97.7 F 07/12/18 10:00 Pulse Rate 97 H 07/12/18 10:00 Respiratory Rate 20 07/12/18 10:00 Blood Pressure 145/56 L 07/12/18 10:00 O2 Sat by Pulse Oximetry (%) 100 07/11/18 22:39 Constitutional: Yes: Calm, Thin Eyes: Yes: WNL HENT: Yes: WNL Neck: Yes: WNL Cardiovascular: Yes: Regular Rate and Rhythm, S1, S2 Respiratory: Yes: Diminished Gastrointestinal: Yes: Normal Bowel Sounds, Soft Extremities: Yes: WNL Edema: No Labs: CBC, BMP 07/12/18 06:30 07/12/18 06:30 INR, PTT INR 1.01 (0.83-1.09) 07/08/18 16:43 Assessment/Plan Problem List - Problems (1) Adenocarcinoma, lung Code(s): C34.90 - MALIGNANT NEOPLASM OF UNSP PART OF UNSP BRONCHUS OR LUNG (2) ASHD (arteriosclerotic heart disease) Code(s): I25.10 - ATHSCL HEART DISEASE OF [place] CORONARY ARTERY W/O ANG PCTRS (3) Anxiety and depression Code(s): F41.9 - ANXIETY DISORDER, UNSPECIFIED; F32.9 - MAJOR DEPRESSIVE DISORDER, SINGLE EPISODE, UNSPECIFIED (4) COPD (chronic obstructive pulmonary disease) Code(s): J44.9 - CHRONIC OBSTRUCTIVE PULMONARY DISEASE, UNSPECIFIED Qualifiers: COPD type: unspecified COPD Qualified Code(s): J44.9 - Chronic obstructive pulmonary disease, unspecified (5) COPD exacerbation Code(s): J44.1 - CHRONIC OBSTRUCTIVE PULMONARY DISEASE W (ACUTE) EXACERBATION (6) Cough Code(s): R05 - COUGH (7) Diastolic CHF Code(s): I50.30 - UNSPECIFIED DIASTOLIC (CONGESTIVE) HEART FAILURE (8) HTN (hypertension) Code(s): I10 - ESSENTIAL (PRIMARY) HYPERTENSION (9) Hyperlipidemia Code(s): E78.5 - HYPERLIPIDEMIA, UNSPECIFIED (10) Hypothyroid Code(s): E03.9 - HYPOTHYROIDISM, UNSPECIFIED (11) Shortness of breath Code(s): R06.02 - SHORTNESS OF BREATH Assessment/Plan Medrol O2 to maintain saturation 88% to 92% BD TX standing and PRN Daily Spiriva ABX: low suspicion of infectious process VTE prophylaxis On discharge should be on LAMA / LABA / ICS DR CARDOSO
--- NOTE | 2018-07-12 17:51 | CON.GU ---
Consult Consult Specialty:: Urology Reason for Consultation:: gross hematuria - History of Present Illness Chief Complaint: hematuria - Past Medical History Cardio/Vascular: Yes: CAD, CHF, HTN Pulmonary: Yes: Bronchitis, Cancer, COPD, O2 Dependent. No: Asthma, Pulmonary Embolus, Sleep Apnea Psych: Yes: Anxiety, Depression - Alcohol/Substance Use Hx Alcohol Use: No History of Substance Use: reports: None - Smoking History Smoking history: Unknown if ever smoked Have you smoked in the past 12 months: No If you are a former smoker, when did you quit?: 11 years ago - Social History ADL: Independent History of Recent Travel: No Home Medications - Allergies Allergies/Adverse Reactions: Allergies Allergy/AdvReac Type Severity Reaction Status Date / Time No Known Allergies Allergy Verified 04/19/18 14:12 - Home Medications Home Medications: Ambulatory Orders Metoprolol Tartrate 25 mg PO BID 07/18/16 Rosuvastatin Calcium [Crestor] 20 mg PO HS 07/18/16 Acetaminophen [Tylenol .Regular Strength -] 650 mg PO Q6H PRN tablet 05/01/18 Albuterol 0.083% Nebulizer [place] [Ventolin 0.083% Nebulizer Soln -] 1 amp NEB Q4H PRN #90 amp 05/01/18 Aspirin [ASA -] 81 mg PO DAILY #90 tab 05/01/18 Clopidogrel Bisulfate [Plavix -] 75 mg PO DAILY #90 tab 05/01/18 Tiotropium [place] [Spiriva Respimat] 2 puff IH DAILY #90 inhaler 05/01/18 Budesonide/Formeterol Fumarate [SYMBICORT 80/4.5mcg -] 2 inh PO BID 07/08/18 Furosemide [Lasix -] 20 mg PO ASDIR 07/08/18 Physical Exam- Vital Signs: Vital Signs Temperature 97.7 F 07/12/18 17:37 Pulse Rate 87 07/12/18 17:37 Respiratory Rate 20 07/12/18 17:37 Blood Pressure 123/58 L 07/12/18 17:37 O2 Sat by Pulse Oximetry (%) 100 07/12/18 09:00 Respiratory: Yes: On BiPap, Poor Air Entry Labs: CBC, BMP 07/12/18 06:30 07/12/18 06:30 Imaging - Results Cat Scan: Report Reviewed Problem List - Problems (1) Gross hematuria Assessment/Plan: 82 yo female w gross hematuria and frequency No hx hematuria pos porior hx of renal calculi will require renal sonogram Outpt cystoscopy Urine cytology Code(s): R31.0 - GROSS HEMATURIA
[2018-07-12] MEDS ORDERED: FUROSEMIDE 40 MG/4 ML INJECTABLE VIAL IVPUSH ONE (18:02)
[2018-07-12] MEDS ORDERED: ROSUVASTATIN CA 10 MG TABLET (FP) ONE (21:31)
[2018-07-12] MEDS: ROSUVASTATIN CA 20 MG TABLET (FP) PO SCH (21:42)
[2018-07-13] MEDS: INSULIN SLIDING SCALE (NOVOLOG) 1 VIAL SQ SCH ×4 (06:10→21:26)
--- NOTE | 2018-07-13 06:33 | PN ---
Progress Note, Physician Chief Complaint: no more hematuria so far still coughing and occasional wheezing - Current Medication List Current Medications: Active Medications Acetaminophen (Tylenol -) 650 mg PO Q6H PRN PRN Reason: PAIN Last Admin: 07/10/18 02:25 Dose: 650 mg Albuterol Sulfate (Ventolin 0.083% Nebulizer Soln -) 1 amp NEB Q4H PRN PRN Reason: SHORT OF BREATH/WHEEZING Last Admin: 07/09/18 04:59 Dose: 1 amp Albuterol Sulfate (Ventolin 0.083% Nebulizer Soln -) 1 amp NEB RQID [facility] Last Admin: 07/12/18 20:04 Dose: 1 amp Aspirin (Asa -) 81 mg PO DAILY [facility] Last Admin: 07/12/18 09:30 Dose: 81 mg Budesonide/Formoterol Fumarate (Symbicort 80/4.5mcg -) 2 puff IH BID [facility] Last Admin: 07/12/18 21:42 Dose: 2 puff Furosemide (Lasix -) 20 mg PO DAILY [facility] Last Admin: 07/12/18 09:30 Dose: 20 mg Guaifenesin (Robitussin -) 10 ml PO Q6H PRN PRN Reason: COUGH Ceftriaxone Sodium 1 gm/ (Dextrose) 50 mls @ 100 mls/hr IVPB DAILY [facility] Last Admin: 07/12/18 10:58 Dose: 100 mls/hr Azithromycin (Zithromax 500mg Ivpb (Pre-Docked)) 500 mg in 250 mls @ 250 mls/ hr IVPB DAILY [facility] Last Admin: 07/12/18 09:30 Dose: 250 mls/hr Insulin Aspart (Novolog Vial Sliding Scale -) 1 vial SQ ACHS [facility]; Protocol Last Admin: 07/13/18 06:10 Dose: Not Given Methylprednisolone Sodium Succinate (Solu-Medrol -) 40 mg IVPB BID [facility] Last Admin: 07/12/18 21:42 Dose: 40 mg Metoprolol Tartrate (Lopressor -) 25 mg PO BID [facility] Last Admin: 07/12/18 21:42 Dose: 25 mg Pantoprazole Sodium (Protonix -) 40 mg PO DAILY [facility] Last Admin: 07/12/18 09:30 Dose: 40 mg Ranitidine HCl (Zantac -) 150 mg PO DAILY [facility] Last Admin: 07/12/18 09:30 Dose: 150 mg Rosuvastatin Calcium (Crestor -) 20 mg PO HS [facility] Last Admin: 07/12/18 21:42 Dose: 20 mg Tiotropium [place] (Spiriva Respimat) 2 puff IH DAILY [facility] Last Admin: 07/12/18 09:31 Dose: 2 puff - Objective Vital Signs: Vital Signs Temperature 97.2 F L 07/13/18 05:00 Pulse Rate 75 07/13/18 05:00 Respiratory Rate 20 07/13/18 05:00 Blood Pressure 124/63 07/13/18 05:00 O2 Sat by Pulse Oximetry (%) 100 07/12/18 21:00 Constitutional: Yes: No Distress Eyes: Yes: Conjunctiva Clear HENT: Yes: Atraumatic Neck: Yes: Supple Cardiovascular: Yes: Regular Rate and Rhythm Respiratory: Yes: Rales, Wheezes Gastrointestinal: Yes: Soft. No: Tenderness Genitourinary: No: CVA Tenderness - Left, CVA Tenderness - Right Musculoskeletal: No: Joint Stiffness, Joint Swelling Extremities: No: Cold, Cool, Cyanosis Edema: No Integumentary: No: Rash, Venous Stasis Changes Neurological: Yes: WNL, Alert, Oriented ...Motor Strength: WNL Psychiatric: Yes: WNL, Alert, Oriented. No: Agitated, Suicidal Ideation Labs: CBC, BMP 07/12/18 06:30 07/12/18 06:30 INR, PTT INR 1.01 (0.83-1.09) 07/08/18 16:43 - ....Imaging Other: Report Reviewed Assessment/Plan The patient is an 82 year old female with a PMH of COPD (on 2L), Stage 3a NSCC ( currently on radiation), CAD s/p [place] (s/p cardiac stent x3), HTN, HLD \admitted with acute onset of shortness of breath, acute on chronic COPD exac and bronchitis iv steroids, nebs, O2 and iv antibiotics PULM< Cardiology f/u hematuria h/o renal stones (no pain now): eval; stopped heparin sq and plavix ; d/w pt risks DVT/PE with AC and bleeding with AC; check renal pelvic US ONC eval f/u labs DVT pfx prognosis guarded d/w pt and staff
[2018-07-13] MEDS: ALBUTEROL SO4 0.083% IH SOL 2.5 MG/3 ML VIAL.NEB. NEB SCH ×4 (07:10→21:40)
--- NOTE | 2018-07-13 08:26 | PN ---
Progress Note, Physician Chief Complaint: Pt A&Ox3; sitting in chair; easily dyspneic, and noticed blood after urinating. She is very worried about her daughter. History of Present Illness: The patient is an 82 year old white female with a PMH of COPD (on 2L), Stage 3a NSCC lung cancer (currently on radiation), CAD s/p [place] (s/p cardiac stent x3), HTN, HLD was BIBEMS for acute onset of shortness of breath. Patient was completing her first radiation treatment today when she suddenly became short of breath. Denies chest pain, lightheadedness, nausea, diaphoresis. Grandson @ bedside assists in history, notes patient has been taking her Albuterol inhaler multiple times daily. Recent medication addition of Symbicort to her daily regimen. History limited as patient tachycardic, tachypneic @ presentation. NKDA Surgical: Cardiac Stent x3, lung biopsy PMD: Dr. Mary Beth Stein Cardiology: Dr. Bah Pulmonology: Dr. Kern/Dr. Velazquez - Current Medication List Current Medications: Active Medications Acetaminophen (Tylenol -) 650 mg PO Q6H PRN PRN Reason: PAIN Last Admin: 07/10/18 02:25 Dose: 650 mg Albuterol Sulfate (Ventolin 0.083% Nebulizer Soln -) 1 amp NEB Q4H PRN PRN Reason: SHORT OF BREATH/WHEEZING Last Admin: 07/09/18 04:59 Dose: 1 amp Albuterol Sulfate (Ventolin 0.083% Nebulizer Soln -) 1 amp NEB RQID [facility] Last Admin: 07/12/18 20:04 Dose: 1 amp Aspirin (Asa -) 81 mg PO DAILY [facility] Last Admin: 07/12/18 09:30 Dose: 81 mg Budesonide/Formoterol Fumarate (Symbicort 80/4.5mcg -) 2 puff IH BID [facility] Last Admin: 07/12/18 21:42 Dose: 2 puff Furosemide (Lasix -) 20 mg PO DAILY [facility] Last Admin: 07/12/18 09:30 Dose: 20 mg Guaifenesin (Robitussin -) 10 ml PO Q6H PRN PRN Reason: COUGH Ceftriaxone Sodium 1 gm/ (Dextrose) 50 mls @ 100 mls/hr IVPB DAILY [facility] Last Admin: 07/12/18 10:58 Dose: 100 mls/hr Azithromycin (Zithromax 500mg Ivpb (Pre-Docked)) 500 mg in 250 mls @ 250 mls/ hr IVPB DAILY [facility] Last Admin: 07/12/18 09:30 Dose: 250 mls/hr Insulin Aspart (Novolog Vial Sliding Scale -) 1 vial SQ ACHS [facility]; Protocol Last Admin: 07/13/18 06:10 Dose: Not Given Methylprednisolone Sodium Succinate (Solu-Medrol -) 40 mg IVPB BID [facility] Last Admin: 07/12/18 21:42 Dose: 40 mg Metoprolol Tartrate (Lopressor -) 25 mg PO BID [facility] Last Admin: 07/12/18 21:42 Dose: 25 mg Pantoprazole Sodium (Protonix -) 40 mg PO DAILY [facility] Last Admin: 07/12/18 09:30 Dose: 40 mg Ranitidine HCl (Zantac -) 150 mg PO DAILY [facility] Last Admin: 07/12/18 09:30 Dose: 150 mg Rosuvastatin Calcium (Crestor -) 20 mg PO HS [facility] Last Admin: 07/12/18 21:42 Dose: 20 mg Tiotropium [place] (Spiriva Respimat) 2 puff IH DAILY [facility] Last Admin: 07/12/18 09:31 Dose: 2 puff - Objective Vital Signs: Vital Signs Temperature 97.2 F L 07/13/18 05:00 Pulse Rate 75 07/13/18 05:00 Respiratory Rate 20 07/13/18 05:00 Blood Pressure 124/63 07/13/18 05:00 O2 Sat by Pulse Oximetry (%) 100 07/12/18 21:00 Constitutional: Yes: Anxious, Moderate Distress, Thin Eyes: Yes: WNL HENT: Yes: WNL Neck: Yes: WNL Cardiovascular: Yes: Regular Rate and Rhythm, S1, S2 Respiratory: Yes: Diminished, On Nasal O2, SOB Gastrointestinal: Yes: Soft ...Rectal Exam: Yes: Deferred Genitourinary: No: Anuria Breast(s): Yes: WNL Musculoskeletal: Yes: Muscle Weakness Extremities: Yes: Cool Edema: No Peripheral Pulses WNL: Yes Integumentary: Yes: WNL Neurological: Yes: Alert, Oriented, Weakness Psychiatric: Yes: Other (anxiety/depression) Labs: CBC, BMP 07/12/18 06:30 07/12/18 06:30 INR, PTT INR 1.01 (0.83-1.09) 07/08/18 16:43 Problem List - Problems (1) Elevated troponin I level Assessment/Plan: 0.02-->0.21-->0.19; normal CK EKG: sinus tachycardia; nonspecific STT changes. Pt likely has demand ischemia from exacerbation of COPD, diastolic CHF, CA, tachycardia. Given pt's advanced lung CA, would recommend conservative management of cardiac condition (she is on metoprolol, statin, ASA). Code(s): R74.8 - ABNORMAL LEVELS OF OTHER SERUM ENZYMES (2) Adenocarcinoma, lung Assessment/Plan: advanced COPD and lung CA. CT chest: Rt lesion with local destruction of ribs; left stable lesion; bilateral pleural effusion. F/u with oncologist, surgical technologist. Poor prognosis Code(s): C34.90 - MALIGNANT NEOPLASM OF UNSP PART OF UNSP BRONCHUS OR LUNG (3) Shortness of breath Assessment/Plan: Lung CA; COPD; diastolic CHF. CT chest results noted. Code(s): R06.02 - SHORTNESS OF BREATH (4) HTN (hypertension) Code(s): I10 - ESSENTIAL (PRIMARY) HYPERTENSION (5) Hyperlipidemia Code(s): E78.5 - HYPERLIPIDEMIA, UNSPECIFIED (6) Sepsis Assessment/Plan: Pt is on antibiotics; f/u c/s. Code(s): A41.9 - SEPSIS, UNSPECIFIED ORGANISM (7) Acute on chronic diastolic CHF (congestive heart failure) Assessment/Plan: On metoprolol. Furosemide; f/u BUn/Cr, electrolytes, daily weight, Is and Os. Code(s): I50.33 - ACUTE ON CHRONIC DIASTOLIC (CONGESTIVE) HEART FAILURE
--- NOTE | 2018-07-13 08:41 | PN ---
Progress Note, Physician Chief Complaint: Pt A&Ox3; sitting in chair; still dyspneic on minimal exertion (after walking to bathroom, needs a few minutes to recover her breath; she walked in hallway with therapist, but very slowly, and had to stop frequently due to dyspnea) and noticed blood after urinating. Her grandson, Hank, is visiting. History of Present Illness: The patient is an 82 year old white female with a PMH of COPD (on 2L), Stage 3a NSCC lung cancer (currently on radiation), CAD s/p [place] (s/p cardiac stent x3), HTN, HLD was BIBEMS for acute onset of shortness of breath. Patient was completing her first radiation treatment today when she suddenly became short of breath. Denies chest pain, lightheadedness, nausea, diaphoresis. Grandson @ bedside assists in history, notes patient has been taking her Albuterol inhaler multiple times daily. Recent medication addition of Symbicort to her daily regimen. History limited as patient tachycardic, tachypneic @ presentation. NKDA Surgical: Cardiac Stent x3, lung biopsy PMD: Dr. Mary Beth Stein Cardiology: Dr. Bah Pulmonology: Dr. Kern/Dr. Velazquez - Current Medication List Current Medications: Active Medications Acetaminophen (Tylenol -) 650 mg PO Q6H PRN PRN Reason: PAIN Last Admin: 07/10/18 02:25 Dose: 650 mg Albuterol Sulfate (Ventolin 0.083% Nebulizer Soln -) 1 amp NEB Q4H PRN PRN Reason: SHORT OF BREATH/WHEEZING Last Admin: 07/09/18 04:59 Dose: 1 amp Albuterol Sulfate (Ventolin 0.083% Nebulizer Soln -) 1 amp NEB RQID [facility] Last Admin: 07/13/18 07:10 Dose: 1 amp Aspirin (Asa -) 81 mg PO DAILY [facility] Last Admin: 07/12/18 09:30 Dose: 81 mg Budesonide/Formoterol Fumarate (Symbicort 80/4.5mcg -) 2 puff IH BID [facility] Last Admin: 07/12/18 21:42 Dose: 2 puff Furosemide (Lasix -) 20 mg PO DAILY [facility] Last Admin: 07/12/18 09:30 Dose: 20 mg Guaifenesin (Robitussin -) 10 ml PO Q6H PRN PRN Reason: COUGH Ceftriaxone Sodium 1 gm/ (Dextrose) 50 mls @ 100 mls/hr IVPB DAILY [facility] Last Admin: 07/12/18 10:58 Dose: 100 mls/hr Azithromycin (Zithromax 500mg Ivpb (Pre-Docked)) 500 mg in 250 mls @ 250 mls/ hr IVPB DAILY [facility] Last Admin: 07/12/18 09:30 Dose: 250 mls/hr Insulin Aspart (Novolog Vial Sliding Scale -) 1 vial SQ ACHS [facility]; Protocol Last Admin: 07/13/18 06:10 Dose: Not Given Methylprednisolone Sodium Succinate (Solu-Medrol -) 40 mg IVPB BID [facility] Last Admin: 07/12/18 21:42 Dose: 40 mg Metoprolol Tartrate (Lopressor -) 25 mg PO BID [facility] Last Admin: 07/12/18 21:42 Dose: 25 mg Pantoprazole Sodium (Protonix -) 40 mg PO DAILY [facility] Last Admin: 07/12/18 09:30 Dose: 40 mg Ranitidine HCl (Zantac -) 150 mg PO DAILY [facility] Last Admin: 07/12/18 09:30 Dose: 150 mg Rosuvastatin Calcium (Crestor -) 20 mg PO HS [facility] Last Admin: 07/12/18 21:42 Dose: 20 mg Tiotropium [place] (Spiriva Respimat) 2 puff IH DAILY [facility] Last Admin: 07/12/18 09:31 Dose: 2 puff - Objective Vital Signs: Vital Signs Temperature 97.2 F L 07/13/18 05:00 Pulse Rate 75 07/13/18 05:00 Respiratory Rate 20 07/13/18 05:00 Blood Pressure 124/63 07/13/18 05:00 O2 Sat by Pulse Oximetry (%) 100 07/12/18 21:00 Constitutional: Yes: Anxious Eyes: Yes: WNL HENT: Yes: WNL Neck: Yes: WNL Cardiovascular: Yes: S1, S2, S4 Respiratory: Yes: Diminished, SOB Gastrointestinal: Yes: Soft ...Rectal Exam: Yes: Deferred Genitourinary: No: Anuria Breast(s): Yes: WNL Musculoskeletal: Yes: Muscle Weakness Extremities: Yes: Cool Edema: No Peripheral Pulses WNL: Yes Integumentary: Yes: WNL Neurological: Yes: Alert, Oriented, Weakness Psychiatric: Yes: Other Labs: CBC, BMP 07/12/18 06:30 07/12/18 06:30 INR, PTT INR 1.01 (0.83-1.09) 07/08/18 16:43 Abnormal Lab Results 07/12/18 06:30 Neutrophils % (Manual) 98.0 H Lymphocytes % (Manual) 1.0 L Monocytes % (Manual) 1 L D Problem List - Problems (1) Elevated troponin I level Code(s): R74.8 - ABNORMAL LEVELS OF OTHER SERUM ENZYMES (2) Adenocarcinoma, lung Code(s): C34.90 - MALIGNANT NEOPLASM OF UNSP PART OF UNSP BRONCHUS OR LUNG (3) Shortness of breath Code(s): R06.02 - SHORTNESS OF BREATH (4) HTN (hypertension) Code(s): I10 - ESSENTIAL (PRIMARY) HYPERTENSION (5) Hyperlipidemia Code(s): E78.5 - HYPERLIPIDEMIA, UNSPECIFIED (6) Sepsis Assessment/Plan: Pt is on antibiotics; no growth in blood; Legionella Ag, Strep Pneumonia in urine. Code(s): A41.9 - SEPSIS, UNSPECIFIED ORGANISM (7) Acute on chronic diastolic CHF (congestive heart failure) Assessment/Plan: On metoprolol Furosemide; give additional 20 mg IVP today (SOB: pleural effusion slightly increased on CT) f/u BUn/Cr, electrolytes, daily weight, Is and Os. Code(s): I50.33 - ACUTE ON CHRONIC DIASTOLIC (CONGESTIVE) HEART FAILURE (8) Thrombocytopenia Assessment/Plan: Developed during this admission. Would stop ASA; f/u etiology. Code(s): D69.6 - THROMBOCYTOPENIA, UNSPECIFIED
[2018-07-13] MEDS ORDERED: PT OWN MED DRAWER 7, Y5N ONE (09:38)
[2018-07-13] MEDS ORDERED: DEXTROSE 5%-WATER - 50 ML IVPB ONE (09:39)
[2018-07-13] MEDS ORDERED: cefTRIAXone SODIUM 1 GM VIAL ONE (09:39)
--- NOTE | 2018-07-13 09:46 | PN ---
Progress Note, Physician History of Present Illness: The patient is an 82 year old white female with a PMH of COPD (on 2L), Stage 3a NSCC lung cancer (currently on radiation), CAD s/p MD (s/p cardiac stent x3), HTN, HLD was BIBEMS for acute onset of shortness of breath. Patient was completing her first radiation treatment today when she suddenly became short of breath. Denies chest pain, lightheadedness, nausea, diaphoresis. Grandson @ bedside assists in history, notes patient has been taking her Albuterol inhaler multiple times daily. Recent medication addition of Symbicort to her daily regimen. History limited as patient tachycardic, tachypneic @ presentation. NKDA Surgical: Cardiac Stent x3, lung biopsy PMD: Dr. Mary Beth Stein Cardiology: Dr. Bah Pulmonology: Dr. Kern/Dr. Velazquez - Current Medication List Current Medications: Active Medications Acetaminophen (Tylenol -) 650 mg PO Q6H PRN PRN Reason: PAIN Last Admin: 07/10/18 02:25 Dose: 650 mg Albuterol Sulfate (Ventolin 0.083% Nebulizer Soln -) 1 amp NEB Q4H PRN PRN Reason: SHORT OF BREATH/WHEEZING Last Admin: 07/09/18 04:59 Dose: 1 amp Albuterol Sulfate (Ventolin 0.083% Nebulizer Soln -) 1 amp NEB RQID [facility] Last Admin: 07/13/18 07:10 Dose: 1 amp Budesonide/Formoterol Fumarate (Symbicort 80/4.5mcg -) 2 puff IH BID [facility] Last Admin: 07/12/18 21:42 Dose: 2 puff Furosemide (Lasix -) 20 mg PO DAILY [facility] Last Admin: 07/12/18 09:30 Dose: 20 mg Guaifenesin (Robitussin -) 10 ml PO Q6H PRN PRN Reason: COUGH Ceftriaxone Sodium 1 gm/ (Dextrose) 50 mls @ 100 mls/hr IVPB DAILY [facility] Last Admin: 07/12/18 10:58 Dose: 100 mls/hr Azithromycin (Zithromax 500mg Ivpb (Pre-Docked)) 500 mg in 250 mls @ 250 mls/ hr IVPB DAILY [facility] Last Admin: 07/12/18 09:30 Dose: 250 mls/hr Insulin Aspart (Novolog Vial Sliding Scale -) 1 vial SQ ACHS [facility]; Protocol Last Admin: 07/13/18 06:10 Dose: Not Given Methylprednisolone Sodium Succinate (Solu-Medrol -) 40 mg IVPB BID [facility] Last Admin: 07/12/18 21:42 Dose: 40 mg Metoprolol Tartrate (Lopressor -) 25 mg PO BID [facility] Last Admin: 07/12/18 21:42 Dose: 25 mg Pantoprazole Sodium (Protonix -) 40 mg PO DAILY [facility] Last Admin: 07/12/18 09:30 Dose: 40 mg Ranitidine HCl (Zantac -) 150 mg PO DAILY [facility] Last Admin: 07/12/18 09:30 Dose: 150 mg Rosuvastatin Calcium (Crestor -) 20 mg PO HS [facility] Last Admin: 07/12/18 21:42 Dose: 20 mg Tiotropium [place] (Spiriva Respimat) 2 puff IH DAILY [facility] Last Admin: 07/12/18 09:31 Dose: 2 puff - Objective Vital Signs: Vital Signs Temperature 97.2 F L 07/13/18 05:00 Pulse Rate 75 07/13/18 05:00 Respiratory Rate 20 07/13/18 05:00 Blood Pressure 124/63 07/13/18 05:00 O2 Sat by Pulse Oximetry (%) 100 07/12/18 21:00 Eyes: Yes: WNL, Conjunctiva Clear, EOM Intact HENT: Yes: WNL, Atraumatic, Normocephalic Neck: Yes: WNL, Supple, Trachea Midline Cardiovascular: Yes: WNL, Regular Rate and Rhythm Respiratory: Yes: WNL, Regular, CTA Bilaterally Gastrointestinal: Yes: WNL, Normal Bowel Sounds Genitourinary: Yes: WNL Musculoskeletal: Yes: WNL Extremities: Yes: WNL Edema: No Integumentary: Yes: WNL Neurological: Yes: WNL, Alert, Oriented ...Motor Strength: WNL Psychiatric: Yes: WNL Labs: CBC, BMP 07/12/18 06:30 07/12/18 06:30 INR, PTT INR 1.01 (0.83-1.09) 07/08/18 16:43 Assessment/Plan - Problems (1) Elevated troponin I level Code(s): R74.8 - ABNORMAL LEVELS OF OTHER SERUM ENZYMES (2) Adenocarcinoma, lung Code(s): C34.90 - MALIGNANT NEOPLASM OF UNSP PART OF UNSP BRONCHUS OR LUNG (3) Shortness of breath Code(s): R06.02 - SHORTNESS OF BREATH (4) HTN (hypertension) Code(s): I10 - ESSENTIAL (PRIMARY) HYPERTENSION (5) Hyperlipidemia Code(s): E78.5 - HYPERLIPIDEMIA, UNSPECIFIED (6) Sepsis Assessment/Plan: Pt is on antibiotics; no growth in blood; Legionella Ag, Strep Pneumonia in urine. Code(s): A41.9 - SEPSIS, UNSPECIFIED ORGANISM (7) Acute on chronic diastolic CHF (congestive heart failure) Assessment/Plan: On metoprolol Furosemide; give additional 20 mg IVP today (SOB: pleural effusion slightly increased on CT) f/u BUn/Cr, electrolytes, daily weight, Is and Os. Code(s): I50.33 - ACUTE ON CHRONIC DIASTOLIC (CONGESTIVE) HEART FAILURE (8) Thrombocytopenia Assessment/Plan: Developed during this admission. Would stop ASA; f/u etiology. Code(s): D69.6 - THROMBOCYTOPENIA, UNSPECIFIED
[2018-07-13] MEDS: AZITHROMYCIN IVPB 500 MG/250 ML BAG IVPB SCH (09:49)
[2018-07-13] MEDS: FUROSEMIDE 20 MG TABLET (FP) PO SCH (09:49)
[2018-07-13] MEDS: PANTOPRAZOLE 40 MG TABLET (FP) PO SCH (09:49)
[2018-07-13] MEDS: RANITIDINE HCL 150 MG TABLET (FP) PO SCH (09:49)
[2018-07-13] MEDS: METOPROLOL TARTRATE 25 MG TABLET (FP) PO SCH ×2 (09:49→21:23)
[2018-07-13] MEDS: BUDESONIDE/FORMETEROL FUMARATE 80/4.5 mcg INHALER IH SCH ×2 (09:50→22:00)
[2018-07-13] MEDS: TIOTROPIUM BROMIDE 2.5 MCG (SPIRIVA) RESPIMAT INHALER IH SCH (09:50)
[2018-07-13] MEDS: methylPREDNISolone NA SUCC 40 MG/1 ML VIAL IVPB SCH ×2 (09:50→21:26)
[2018-07-13] MEDS: CEFTRIAXONE 1 GM in DEXTROSE 5%-WATER - 50 ML IVPB SCH (11:25)
--- NOTE | 2018-07-13 15:23 | PN ---
Progress Note, Physician History of Present Illness: PULMONARY ALERT,FEELING BETTER,LESS DYSPNEIC,LESS COUGH - Current Medication List Current Medications: Active Medications Acetaminophen (Tylenol -) 650 mg PO Q6H PRN PRN Reason: PAIN Last Admin: 07/10/18 02:25 Dose: 650 mg Albuterol Sulfate (Ventolin 0.083% Nebulizer Soln -) 1 amp NEB Q4H PRN PRN Reason: SHORT OF BREATH/WHEEZING Last Admin: 07/09/18 04:59 Dose: 1 amp Albuterol Sulfate (Ventolin 0.083% Nebulizer Soln -) 1 amp NEB RQID [facility] Last Admin: 07/13/18 11:15 Dose: 1 amp Budesonide/Formoterol Fumarate (Symbicort 80/4.5mcg -) 2 puff IH BID [facility] Last Admin: 07/13/18 09:50 Dose: 2 puff Furosemide (Lasix -) 20 mg PO DAILY [facility] Last Admin: 07/13/18 09:49 Dose: 20 mg Guaifenesin (Robitussin -) 10 ml PO Q6H PRN PRN Reason: COUGH Ceftriaxone Sodium 1 gm/ (Dextrose) 50 mls @ 100 mls/hr IVPB DAILY [facility] Last Admin: 07/13/18 11:25 Dose: 100 mls/hr Azithromycin (Zithromax 500mg Ivpb (Pre-Docked)) 500 mg in 250 mls @ 250 mls/ hr IVPB DAILY [facility] Last Admin: 07/13/18 09:49 Dose: 250 mls/hr Insulin Aspart (Novolog Vial Sliding Scale -) 1 vial SQ ACHS [facility]; Protocol Last Admin: 07/13/18 12:18 Dose: Not Given Methylprednisolone Sodium Succinate (Solu-Medrol -) 40 mg IVPB BID [facility] Last Admin: 07/13/18 09:50 Dose: 40 mg Metoprolol Tartrate (Lopressor -) 25 mg PO BID [facility] Last Admin: 07/13/18 09:49 Dose: 25 mg Pantoprazole Sodium (Protonix -) 40 mg PO DAILY [facility] Last Admin: 07/13/18 09:49 Dose: 40 mg Ranitidine HCl (Zantac -) 150 mg PO DAILY [facility] Last Admin: 07/13/18 09:49 Dose: 150 mg Rosuvastatin Calcium (Crestor -) 20 mg PO HS [facility] Last Admin: 07/12/18 21:42 Dose: 20 mg Tiotropium [place] (Spiriva Respimat) 2 puff IH DAILY [facility] Last Admin: 07/13/18 09:50 Dose: 2 puff - Objective Vital Signs: Vital Signs Temperature 97.6 F 07/13/18 14:42 Pulse Rate 75 07/13/18 14:42 Respiratory Rate 21 H 07/13/18 14:42 Blood Pressure 111/51 L 07/13/18 14:42 O2 Sat by Pulse Oximetry (%) 100 07/13/18 09:00 Constitutional: Yes: Calm, Thin Eyes: Yes: WNL HENT: Yes: WNL Neck: Yes: WNL Cardiovascular: Yes: Regular Rate and Rhythm, S1, S2 Respiratory: Yes: Diminished Gastrointestinal: Yes: Normal Bowel Sounds, Soft Extremities: Yes: WNL Edema: No Labs: CBC, BMP Assessment/Plan Problem List - Problems (1) Adenocarcinoma, lung Code(s): C34.90 - MALIGNANT NEOPLASM OF UNSP PART OF UNSP BRONCHUS OR LUNG (2) ASHD (arteriosclerotic heart disease) Code(s): I25.10 - ATHSCL HEART DISEASE OF [place] CORONARY ARTERY W/O ANG PCTRS (3) Anxiety and depression Code(s): F41.9 - ANXIETY DISORDER, UNSPECIFIED; F32.9 - MAJOR DEPRESSIVE DISORDER, SINGLE EPISODE, UNSPECIFIED (4) COPD (chronic obstructive pulmonary disease) Code(s): J44.9 - CHRONIC OBSTRUCTIVE PULMONARY DISEASE, UNSPECIFIED Qualifiers: COPD type: unspecified COPD Qualified Code(s): J44.9 - Chronic obstructive pulmonary disease, unspecified (5) COPD exacerbation Code(s): J44.1 - CHRONIC OBSTRUCTIVE PULMONARY DISEASE W (ACUTE) EXACERBATION (6) Cough Code(s): R05 - COUGH (7) Diastolic CHF Code(s): I50.30 - UNSPECIFIED DIASTOLIC (CONGESTIVE) HEART FAILURE (8) HTN (hypertension) Code(s): I10 - ESSENTIAL (PRIMARY) HYPERTENSION (9) Hyperlipidemia Code(s): E78.5 - HYPERLIPIDEMIA, UNSPECIFIED (10) Hypothyroid Code(s): E03.9 - HYPOTHYROIDISM, UNSPECIFIED (11) Shortness of breath Code(s): R06.02 - SHORTNESS OF BREATH Assessment/Plan Medrol TAPER O2 to maintain saturation 88% to 92% BD TX standing and PRN Daily Spiriva ABX: low suspicion of infectious process VTE prophylaxis On discharge should be on LAMA / LABA / ICS DR CARDOSO
[2018-07-13] MEDS ORDERED: methylPREDNISolone NA SUCC 40 MG/1 ML VIAL IVPB SCH (15:24)
[2018-07-13] MEDS ORDERED: ROSUVASTATIN CA 10 MG TABLET (FP) ONE (20:13)
[2018-07-13] MEDS: ROSUVASTATIN CA 20 MG TABLET (FP) PO SCH (21:23)
--- NOTE | 2018-07-13 22:48 | PN ---
Progress Note, Physician Chief Complaint: shortness of breath History of Present Illness: Reports feeling better with less SOB. Able to ambulate a little. - Current Medication List Current Medications: Active Medications Acetaminophen (Tylenol -) 650 mg PO Q6H PRN PRN Reason: PAIN Last Admin: 07/10/18 02:25 Dose: 650 mg Albuterol Sulfate (Ventolin 0.083% Nebulizer Soln -) 1 amp NEB Q4H PRN PRN Reason: SHORT OF BREATH/WHEEZING Last Admin: 07/09/18 04:59 Dose: 1 amp Albuterol Sulfate (Ventolin 0.083% Nebulizer Soln -) 1 amp NEB RQID [facility] Last Admin: 07/13/18 21:40 Dose: 1 amp Budesonide/Formoterol Fumarate (Symbicort 80/4.5mcg -) 2 puff IH BID [facility] Last Admin: 07/13/18 22:00 Dose: 2 puff Furosemide (Lasix -) 20 mg PO DAILY [facility] Last Admin: 07/13/18 09:49 Dose: 20 mg Guaifenesin (Robitussin -) 10 ml PO Q6H PRN PRN Reason: COUGH Ceftriaxone Sodium 1 gm/ (Dextrose) 50 mls @ 100 mls/hr IVPB DAILY [facility] Last Admin: 07/13/18 11:25 Dose: 100 mls/hr Azithromycin (Zithromax 500mg Ivpb (Pre-Docked)) 500 mg in 250 mls @ 250 mls/ hr IVPB DAILY [facility] Last Admin: 07/13/18 09:49 Dose: 250 mls/hr Insulin Aspart (Novolog Vial Sliding Scale -) 1 vial SQ ACHS [facility]; Protocol Last Admin: 07/13/18 21:26 Dose: 4 units Methylprednisolone Sodium Succinate (Solu-Medrol -) 30 mg IVPB BID [facility] Last Admin: 07/13/18 21:26 Dose: 30 mg Metoprolol Tartrate (Lopressor -) 25 mg PO BID [facility] Last Admin: 07/13/18 21:23 Dose: 25 mg Pantoprazole Sodium (Protonix -) 40 mg PO DAILY [facility] Last Admin: 07/13/18 09:49 Dose: 40 mg Ranitidine HCl (Zantac -) 150 mg PO DAILY [facility] Last Admin: 07/13/18 09:49 Dose: 150 mg Rosuvastatin Calcium (Crestor -) 20 mg PO HS [facility] Last Admin: 07/13/18 21:23 Dose: 20 mg Tiotropium [place] (Spiriva Respimat) 2 puff IH DAILY [facility] Last Admin: 07/13/18 09:50 Dose: 2 puff - Objective Vital Signs: Vital Signs Temperature 97.2 F L 07/13/18 16:30 Pulse Rate 88 07/13/18 16:30 Respiratory Rate 18 07/13/18 16:30 Blood Pressure 132/62 07/13/18 16:30 O2 Sat by Pulse Oximetry (%) 100 07/13/18 20:43 Constitutional: Yes: No Distress, Calm Eyes: Yes: Conjunctiva Clear Cardiovascular: Yes: Regular Rate and Rhythm Respiratory: Yes: Regular, CTA Bilaterally Gastrointestinal: Yes: WNL, Soft Extremities: Yes: WNL Edema: No Labs: CBC, BMP 07/12/18 06:30 07/12/18 06:30 INR, PTT INR 1.01 (0.83-1.09) 07/08/18 16:43 Assessment/Plan 82F with COPD on home O2, CAD, dCHF, and recently dx'd lung adenocarcinoma admitted with SOB after 1st RT treatment. Being treated for COPD exacerbation with IV steroids, abx, nebs. Also diuresing. Symptoms improving. Plan to resume RT when acute issues resolve
[2018-07-14] MEDS: INSULIN SLIDING SCALE (NOVOLOG) 1 VIAL SQ SCH ×4 (06:04→21:19)
--- NOTE | 2018-07-14 06:10 | PN ---
Progress Note, Physician Chief Complaint: OOB to chair feels a little better respiratory almazan; no more hematuria renal pelvic US d/w pt negative; advised to have cystoscopy with (in or outpt ) to r/o cystitis, infection, polyps or malignancy among other diagnoses but she refused it; does not want cystoscopy; aware we need to R/O malignancy - I advised f/u dr Way outpt within 1-2 weeks of DC home; - Current Medication List Current Medications: Active Medications Acetaminophen (Tylenol -) 650 mg PO Q6H PRN PRN Reason: PAIN Last Admin: 07/10/18 02:25 Dose: 650 mg Albuterol Sulfate (Ventolin 0.083% Nebulizer Soln -) 1 amp NEB Q4H PRN PRN Reason: SHORT OF BREATH/WHEEZING Last Admin: 07/09/18 04:59 Dose: 1 amp Albuterol Sulfate (Ventolin 0.083% Nebulizer Soln -) 1 amp NEB RQID [facility] Last Admin: 07/13/18 21:40 Dose: 1 amp Budesonide/Formoterol Fumarate (Symbicort 80/4.5mcg -) 2 puff IH BID [facility] Last Admin: 07/13/18 22:00 Dose: 2 puff Furosemide (Lasix -) 20 mg PO DAILY [facility] Last Admin: 07/13/18 09:49 Dose: 20 mg Guaifenesin (Robitussin -) 10 ml PO Q6H PRN PRN Reason: COUGH Ceftriaxone Sodium 1 gm/ (Dextrose) 50 mls @ 100 mls/hr IVPB DAILY [facility] Last Admin: 07/13/18 11:25 Dose: 100 mls/hr Azithromycin (Zithromax 500mg Ivpb (Pre-Docked)) 500 mg in 250 mls @ 250 mls/ hr IVPB DAILY [facility] Last Admin: 07/13/18 09:49 Dose: 250 mls/hr Insulin Aspart (Novolog Vial Sliding Scale -) 1 vial SQ ACHS [facility]; Protocol Last Admin: 07/14/18 06:04 Dose: Not Given Methylprednisolone Sodium Succinate (Solu-Medrol -) 30 mg IVPB BID [facility] Last Admin: 07/13/18 21:26 Dose: 30 mg Metoprolol Tartrate (Lopressor -) 25 mg PO BID [facility] Last Admin: 01/12/19 21:23 Dose: 25 mg Pantoprazole Sodium (Protonix -) 40 mg PO DAILY [facility] Last Admin: 07/13/18 09:49 Dose: 40 mg Ranitidine HCl (Zantac -) 150 mg PO DAILY [facility] Last Admin: 07/13/18 09:49 Dose: 150 mg Rosuvastatin Calcium (Crestor -) 20 mg PO HS [facility] Last Admin: 07/13/18 21:23 Dose: 20 mg Tiotropium [place] (Spiriva Respimat) 2 puff IH DAILY [facility] Last Admin: 07/13/18 09:50 Dose: 2 puff - Objective Vital Signs: Vital Signs Temperature 97.9 F 07/13/18 22:00 Pulse Rate 64 07/13/18 22:00 Respiratory Rate 18 07/13/18 22:00 Blood Pressure 137/70 07/13/18 22:00 O2 Sat by Pulse Oximetry (%) 100 07/13/18 20:43 Constitutional: Yes: No Distress Eyes: Yes: Conjunctiva Clear HENT: Yes: Atraumatic Neck: Yes: Supple Cardiovascular: Yes: Regular Rate and Rhythm Respiratory: Yes: Rales Gastrointestinal: Yes: Soft. No: Tenderness Genitourinary: No: CVA Tenderness - Left, CVA Tenderness - Right Musculoskeletal: No: Joint Stiffness, Joint Swelling Extremities: No: Cold, Cool, Cyanosis Edema: No Integumentary: No: Rash, Venous Stasis Changes Neurological: Yes: WNL, Alert, Oriented ...Motor Strength: WNL Psychiatric: Yes: WNL, Alert, Oriented. No: Agitated, Suicidal Ideation Labs: CBC, BMP 07/12/18 06:30 07/12/18 06:30 INR, PTT INR 1.01 (0.83-1.09) 07/08/18 16:43 - ....Imaging Other: Report Reviewed Assessment/Plan The patient is an 82 year old female with a PMH of COPD (on 2L), Stage 3a NSCC ( currently on radiation), CAD s/p [place] (s/p cardiac stent x3), HTN, HLD \admitted with acute onset of shortness of breath, acute on chronic COPD exac and bronchitis iv steroids, nebs, O2 and iv antibiotics PULM< Cardiology f/u hematuria h/o renal stones (no pain now): eval; stopped heparin sq and plavix ; d/w pt risks DVT/PE with AC and bleeding with AC; negative renal pelvic US - needs cystoscopy, pt refusing it for now; ONC eval f/u labs DVT pfx prognosis guarded d/w pt and staff
[2018-07-14] MEDS: ALBUTEROL SO4 0.083% IH SOL 2.5 MG/3 ML VIAL.NEB. NEB SCH (07:15)
[2018-07-14] MEDS ORDERED: cefTRIAXone SODIUM 1 GM VIAL ONE (09:25)
[2018-07-14] MEDS ORDERED: DEXTROSE 5%-WATER - 50 ML IVPB ONE (09:25)
--- NOTE | 2018-07-14 09:33 | PN ---
Progress Note, Physician History of Present Illness: The patient is an 82 year old white female with a PMH of COPD (on 2L), Stage 3a NSCC lung cancer (currently on radiation), CAD s/p NM (s/p cardiac stent x3), HTN, HLD was BIBEMS for acute onset of shortness of breath. Patient was completing her first radiation treatment today when she suddenly became short of breath. Denies chest pain, lightheadedness, nausea, diaphoresis. Grandson @ bedside assists in history, notes patient has been taking her Albuterol inhaler multiple times daily. Recent medication addition of Symbicort to her daily regimen. History limited as patient tachycardic, tachypneic @ presentation. NKDA Surgical: Cardiac Stent x3, lung biopsy PMD: Dr. Mary Beth Stein Cardiology: Dr. Bah Pulmonology: Dr. Kern/Dr. Velazquez - Current Medication List Current Medications: Active Medications Acetaminophen (Tylenol -) 650 mg PO Q6H PRN PRN Reason: PAIN Last Admin: 07/10/18 02:25 Dose: 650 mg Albuterol Sulfate (Ventolin 0.083% Nebulizer Soln -) 1 amp NEB Q4H PRN PRN Reason: SHORT OF BREATH/WHEEZING Last Admin: 07/09/18 04:59 Dose: 1 amp Albuterol Sulfate (Ventolin 0.083% Nebulizer Soln -) 1 amp NEB RQID [facility] Last Admin: 07/14/18 07:15 Dose: 1 amp Budesonide/Formoterol Fumarate (Symbicort 80/4.5mcg -) 2 puff IH BID [facility] Last Admin: 07/13/18 22:00 Dose: 2 puff Furosemide (Lasix -) 20 mg PO DAILY [facility] Last Admin: 07/13/18 09:49 Dose: 20 mg Guaifenesin (Robitussin -) 10 ml PO Q6H PRN PRN Reason: COUGH Ceftriaxone Sodium 1 gm/ (Dextrose) 50 mls @ 100 mls/hr IVPB DAILY [facility] Last Admin: 07/13/18 11:25 Dose: 100 mls/hr Azithromycin (Zithromax 500mg Ivpb (Pre-Docked)) 500 mg in 250 mls @ 250 mls/ hr IVPB DAILY [facility] Last Admin: 07/13/18 09:49 Dose: 250 mls/hr Insulin Aspart (Novolog Vial Sliding Scale -) 1 vial SQ ACHS [facility]; Protocol Last Admin: 07/14/18 06:04 Dose: Not Given Methylprednisolone Sodium Succinate (Solu-Medrol -) 30 mg IVPB BID [facility] Last Admin: 07/13/18 21:26 Dose: 30 mg Metoprolol Tartrate (Lopressor -) 25 mg PO BID [facility] Last Admin: 07/13/18 21:23 Dose: 25 mg Pantoprazole Sodium (Protonix -) 40 mg PO DAILY [facility] Last Admin: 07/13/18 09:49 Dose: 40 mg Ranitidine HCl (Zantac -) 150 mg PO DAILY [facility] Last Admin: 07/13/18 09:49 Dose: 150 mg Rosuvastatin Calcium (Crestor -) 20 mg PO HS [facility] Last Admin: 07/13/18 21:23 Dose: 20 mg Tiotropium [place] (Spiriva Respimat) 2 puff IH DAILY [facility] Last Admin: 07/13/18 09:50 Dose: 2 puff - Objective Vital Signs: Vital Signs Temperature 97.2 F L 07/14/18 06:36 Pulse Rate 68 07/14/18 06:36 Respiratory Rate 18 07/14/18 06:36 Blood Pressure 113/58 L 07/14/18 06:36 O2 Sat by Pulse Oximetry (%) 100 07/13/18 20:43 Eyes: Yes: WNL, Conjunctiva Clear, EOM Intact HENT: Yes: WNL, Atraumatic, Normocephalic Neck: Yes: WNL, Supple, Trachea Midline Cardiovascular: Yes: WNL, Regular Rate and Rhythm Respiratory: Yes: WNL, Regular, CTA Bilaterally Gastrointestinal: Yes: WNL, Normal Bowel Sounds Genitourinary: Yes: WNL Musculoskeletal: Yes: WNL Extremities: Yes: WNL Edema: No Integumentary: Yes: WNL Neurological: Yes: WNL, Alert, Oriented ...Motor Strength: WNL Psychiatric: Yes: WNL Labs: INR, PTT INR 1.01 (0.83-1.09) 07/08/18 16:43 Assessment/Plan - Problems (1) Elevated troponin I level Code(s): R74.8 - ABNORMAL LEVELS OF OTHER SERUM ENZYMES (2) Adenocarcinoma, lung Code(s): C34.90 - MALIGNANT NEOPLASM OF UNSP PART OF UNSP BRONCHUS OR LUNG (3) Shortness of breath Code(s): R06.02 - SHORTNESS OF BREATH (4) HTN (hypertension) Code(s): I10 - ESSENTIAL (PRIMARY) HYPERTENSION (5) Hyperlipidemia Code(s): E78.5 - HYPERLIPIDEMIA, UNSPECIFIED (6) Sepsis Assessment/Plan: Pt is on antibiotics; no growth in blood; Legionella Ag, Strep Pneumonia in urine. Code(s): A41.9 - SEPSIS, UNSPECIFIED ORGANISM (7) Acute on chronic diastolic CHF (congestive heart failure) Assessment/Plan: On metoprolol Furosemide; give additional 20 mg IVP today (SOB: pleural effusion slightly increased on CT) f/u BUn/Cr, electrolytes, daily weight, Is and Os. Code(s): I50.33 - ACUTE ON CHRONIC DIASTOLIC (CONGESTIVE) HEART FAILURE (8) Thrombocytopenia Assessment/Plan: Developed during this admission. Would stop ASA; f/u etiology. Code(s): D69.6 - THROMBOCYTOPENIA, UNSPECIFIED
[2018-07-14 09:38] LABS: HEMATOCRIT 36.7 % (32.4-45.2); HEMOGLOBIN 12.2 GM/dL (10.7-15.3); MCH 29.7 pg (25.7-33.7); MCHC 33.3 g/dl (32.0-36.0); MEAN CELL VOLUME 89.3 fl (80-96); MEAN PLT VOLUME 10.7 fl (7.5-11.1); MONO % 3.5 % (3.8-10.2); NEUT % 94.5 % (42.8-82.8); PLATELET COUNT 117 K/MM3 (134-434); RDW 16.6 % (11.6-15.6)
[2018-07-14] MEDS: METOPROLOL TARTRATE 25 MG TABLET (FP) PO SCH ×2 (09:46→21:12)
[2018-07-14] MEDS: PANTOPRAZOLE 40 MG TABLET (FP) PO SCH (09:46)
[2018-07-14] MEDS: FUROSEMIDE 20 MG TABLET (FP) PO SCH (09:46)
[2018-07-14] MEDS: RANITIDINE HCL 150 MG TABLET (FP) PO SCH (09:46)
[2018-07-14] MEDS: CEFTRIAXONE 1 GM in DEXTROSE 5%-WATER - 50 ML IVPB SCH (09:47)
[2018-07-14] MEDS: methylPREDNISolone NA SUCC 40 MG/1 ML VIAL IVPB SCH ×2 (09:47→21:13)
[2018-07-14] MEDS: TIOTROPIUM BROMIDE 2.5 MCG (SPIRIVA) RESPIMAT INHALER IH SCH (09:48)
[2018-07-14] MEDS: BUDESONIDE/FORMETEROL FUMARATE 80/4.5 mcg INHALER IH SCH ×2 (09:48→21:14)
[2018-07-14 10:21] LABS: ALK PHOS 58 U/L (45-117); ANION GAP 8 MMOL/L (8-16); BILIRUBIN,TOTAL 0.3 mg/dL (0.2-1); BLOOD UREA NITROGEN 34 mg/dL (7-18); CALCIUM 8.8 mg/dL (8.5-10.1); CHLORIDE 97 mmol/L (98-107); CO2 33 mmol/L (21-32); CREATININE 0.8 mg/dL (0.55-1.3); GLUCOSE,RANDOM 173 mg/dL (74-106); POTASSIUM 4.5 mmol/L (3.5-5.1); SGOT/AST 119 U/L (15-37); SGPT/ALT 144 U/L (13-61); SODIUM 138 mmol/L (136-145); TOT PROT 5.4 g/dl (6.4-8.2)
[2018-07-14] MEDS: AZITHROMYCIN IVPB 500 MG/250 ML BAG IVPB SCH (10:36)
[2018-07-14 12:34] LABS: ANISOCYTOSIS 0; MACROCYTOSIS 0; OVALOCYTE 1+; PLATELET ESTIMATE DECREASED
--- NOTE | 2018-07-14 13:40 | PN ---
Progress Note, Physician History of Present Illness: pulmonary alert,oob-chair,less dyspneic,c/o r sided chest discomfort - Current Medication List Current Medications: Active Medications Acetaminophen (Tylenol -) 650 mg PO Q6H PRN PRN Reason: PAIN Last Admin: 07/10/18 02:25 Dose: 650 mg Albuterol Sulfate (Ventolin 0.083% Nebulizer Soln -) 1 amp NEB Q4H PRN PRN Reason: SHORT OF BREATH/WHEEZING Last Admin: 07/09/18 04:59 Dose: 1 amp Budesonide/Formoterol Fumarate (Symbicort 80/4.5mcg -) 2 puff IH BID [facility] Last Admin: 07/14/18 09:48 Dose: 2 puff Furosemide (Lasix -) 20 mg PO DAILY [facility] Last Admin: 07/14/18 09:46 Dose: 20 mg Guaifenesin (Robitussin -) 10 ml PO Q6H PRN PRN Reason: COUGH Ceftriaxone Sodium 1 gm/ (Dextrose) 50 mls @ 100 mls/hr IVPB DAILY [facility] Last Admin: 07/14/18 09:47 Dose: 100 mls/hr Azithromycin (Zithromax 500mg Ivpb (Pre-Docked)) 500 mg in 250 mls @ 250 mls/ hr IVPB DAILY [facility] Last Admin: 07/14/18 10:36 Dose: 250 mls/hr Insulin Aspart (Novolog Vial Sliding Scale -) 1 vial SQ ACHS [facility]; Protocol Last Admin: 07/14/18 11:29 Dose: 4 units Methylprednisolone Sodium Succinate (Solu-Medrol -) 30 mg IVPB BID [facility] Last Admin: 07/14/18 09:47 Dose: 30 mg Metoprolol Tartrate (Lopressor -) 25 mg PO BID [facility] Last Admin: 07/14/18 09:46 Dose: 25 mg Pantoprazole Sodium (Protonix -) 40 mg PO DAILY [facility] Last Admin: 07/14/18 09:46 Dose: 40 mg Ranitidine HCl (Zantac -) 150 mg PO DAILY [facility] Last Admin: 07/14/18 09:46 Dose: 150 mg Rosuvastatin Calcium (Crestor -) 20 mg PO HS [facility] Last Admin: 07/13/18 21:23 Dose: 20 mg Tiotropium [place] (Spiriva Respimat) 2 puff IH DAILY [facility] Last Admin: 07/14/18 09:48 Dose: 2 puff - Objective Vital Signs: Vital Signs Temperature 97.2 F L 07/14/18 06:36 Pulse Rate 75 07/14/18 10:00 Respiratory Rate 20 07/14/18 10:00 Blood Pressure 125/60 07/14/18 10:00 O2 Sat by Pulse Oximetry (%) 100 07/14/18 09:00 Constitutional: Yes: Calm, Thin Eyes: Yes: WNL HENT: Yes: WNL Neck: Yes: WNL Cardiovascular: Yes: Regular Rate and Rhythm, S1, S2 Respiratory: Yes: Diminished Gastrointestinal: Yes: Normal Bowel Sounds, Soft Extremities: Yes: WNL Edema: No Labs: CBC, BMP 07/14/18 08:30 07/14/18 08:30 INR, PTT INR 1.01 (0.83-1.09) 07/08/18 16:43 Assessment/Plan Problem List - Problems (1) Adenocarcinoma, lung Code(s): C34.90 - MALIGNANT NEOPLASM OF UNSP PART OF UNSP BRONCHUS OR LUNG (2) ASHD (arteriosclerotic heart disease) Code(s): I25.10 - ATHSCL HEART DISEASE OF [place] CORONARY ARTERY W/O ANG PCTRS (3) Anxiety and depression Code(s): F41.9 - ANXIETY DISORDER, UNSPECIFIED; F32.9 - MAJOR DEPRESSIVE DISORDER, SINGLE EPISODE, UNSPECIFIED (4) COPD (chronic obstructive pulmonary disease) Code(s): J44.9 - CHRONIC OBSTRUCTIVE PULMONARY DISEASE, UNSPECIFIED Qualifiers: COPD type: unspecified COPD Qualified Code(s): J44.9 - Chronic obstructive pulmonary disease, unspecified (5) COPD exacerbation Code(s): J44.1 - CHRONIC OBSTRUCTIVE PULMONARY DISEASE W (ACUTE) EXACERBATION (6) Cough Code(s): R05 - COUGH (7) Diastolic CHF Code(s): I50.30 - UNSPECIFIED DIASTOLIC (CONGESTIVE) HEART FAILURE (8) HTN (hypertension) Code(s): I10 - ESSENTIAL (PRIMARY) HYPERTENSION (9) Hyperlipidemia Code(s): E78.5 - HYPERLIPIDEMIA, UNSPECIFIED (10) Hypothyroid Code(s): E03.9 - HYPOTHYROIDISM, UNSPECIFIED (11) Shortness of breath Code(s): R06.02 - SHORTNESS OF BREATH Assessment/Plan Medrol TAPER O2 to maintain saturation 88% to 92% BD TX standing and PRN Daily Spiriva VTE prophylaxis DR CARDOSO
[2018-07-14] MEDS ORDERED: ROSUVASTATIN CA 10 MG TABLET (FP) ONE (20:55)
[2018-07-14] MEDS: ROSUVASTATIN CA 20 MG TABLET (FP) PO SCH (21:12)
[2018-07-14] MEDS ORDERED: INSULIN (NOVOLOG) ASPART 100 UNITS/ML 10ML VIAL ONE (21:19)
[2018-07-15] MEDS: INSULIN SLIDING SCALE (NOVOLOG) 1 VIAL SQ SCH ×4 (06:14→21:07)
--- NOTE | 2018-07-15 06:47 | PN ---
Progress Note, Physician Chief Complaint: feeling better les SOB but has some R sided CP and some RUE discomfort; will try neurontin; no more hematuria for now - Current Medication List Current Medications: Active Medications Acetaminophen (Tylenol -) 650 mg PO Q6H PRN PRN Reason: PAIN Last Admin: 07/10/18 02:25 Dose: 650 mg Albuterol Sulfate (Ventolin 0.083% Nebulizer Soln -) 1 amp NEB Q4H PRN PRN Reason: SHORT OF BREATH/WHEEZING Last Admin: 07/09/18 04:59 Dose: 1 amp Budesonide/Formoterol Fumarate (Symbicort 80/4.5mcg -) 2 puff IH BID [facility] Last Admin: 07/14/18 21:14 Dose: 2 puff Furosemide (Lasix -) 20 mg PO DAILY [facility] Last Admin: 07/14/18 09:46 Dose: 20 mg Guaifenesin (Robitussin -) 10 ml PO Q6H PRN PRN Reason: COUGH Ceftriaxone Sodium 1 gm/ (Dextrose) 50 mls @ 100 mls/hr IVPB DAILY [facility] Last Admin: 07/14/18 09:47 Dose: 100 mls/hr Azithromycin (Zithromax 500mg Ivpb (Pre-Docked)) 500 mg in 250 mls @ 250 mls/ hr IVPB DAILY [facility] Last Admin: 07/14/18 10:36 Dose: 250 mls/hr Insulin Aspart (Novolog Vial Sliding Scale -) 1 vial SQ ACHS [facility]; Protocol Last Admin: 07/15/18 06:14 Dose: Not Given Methylprednisolone Sodium Succinate (Solu-Medrol -) 30 mg IVPB BID [facility] Last Admin: 07/14/18 21:13 Dose: 30 mg Metoprolol Tartrate (Lopressor -) 25 mg PO BID [facility] Last Admin: 07/14/18 21:12 Dose: 25 mg Pantoprazole Sodium (Protonix -) 40 mg PO DAILY [facility] Last Admin: 07/14/18 09:46 Dose: 40 mg Ranitidine HCl (Zantac -) 150 mg PO DAILY [facility] Last Admin: 07/14/18 09:46 Dose: 150 mg Rosuvastatin Calcium (Crestor -) 20 mg PO HS [facility] Last Admin: 07/14/18 21:12 Dose: 20 mg Tiotropium [place] (Spiriva Respimat) 2 puff IH DAILY [facility] Last Admin: 07/14/18 09:48 Dose: 2 puff - Objective Vital Signs: Vital Signs Temperature 98.2 F 07/14/18 22:00 Pulse Rate 70 07/14/18 22:00 Respiratory Rate 18 07/14/18 22:00 Blood Pressure 115/60 07/14/18 22:00 O2 Sat by Pulse Oximetry (%) 100 07/14/18 21:00 Constitutional: Yes: No Distress, Calm Eyes: Yes: Conjunctiva Clear HENT: Yes: Atraumatic Neck: Yes: Supple Cardiovascular: Yes: Regular Rate and Rhythm Respiratory: Yes: Rales Gastrointestinal: Yes: Soft. No: Tenderness Genitourinary: No: CVA Tenderness - Left, CVA Tenderness - Right Musculoskeletal: No: Joint Stiffness, Joint Swelling Extremities: No: Cold, Cool Edema: No Integumentary: No: Rash, Venous Stasis Changes Neurological: Yes: WNL, Alert, Oriented ...Motor Strength: WNL Psychiatric: Yes: WNL, Alert, Oriented. No: Agitated, Suicidal Ideation Labs: CBC, BMP 07/14/18 08:30 07/14/18 08:30 INR, PTT INR 1.01 (0.83-1.09) 07/08/18 16:43 - ....Imaging Other: Report Reviewed Assessment/Plan The patient is an 82 year old female with a PMH of COPD (on 2L), Stage 3a NSCC ( currently on radiation), CAD s/p [place] (s/p cardiac stent x3), HTN, HLD \admitted with acute onset of shortness of breath, acute on chronic COPD exac and bronchitis iv steroids, nebs, O2 and iv antibiotics PULM, Cardiology f/u pain meds prn; tylenol; neurontin hematuria h/o renal stones f/u; stopped heparin sq and plavix; d/w pt risks DVT/PE with AC and bleeding with AC; negative renal pelvic US - needs cystoscopy, pt refusing it for now; ONC f/u f/u labs DVT pfx prognosis guarded d/w pt and staff
[2018-07-15 07:30] LABS: BASO % 0.1 % (0-2.0); HEMATOCRIT 36.5 % (32.4-45.2); HEMOGLOBIN 11.4 GM/dL (10.7-15.3); LYMPH % 1.7 % (8-40); MCH 27.9 pg (25.7-33.7); MCHC 31.1 g/dl (32.0-36.0); MEAN CELL VOLUME 89.8 fl (80-96); MONO % 4.3 % (3.8-10.2); NEUT % 93.9 % (42.8-82.8); PLATELET COUNT 104 K/MM3 (134-434); RBC 4.06 M/mm3 (3.60-5.2); RDW 16.9 % (11.6-15.6); WHITE BLOOD COUNT 9.3 K/mm3 (4.0-10.0)
[2018-07-15 08:11] LABS: ANION GAP 5 MMOL/L (8-16); BLOOD UREA NITROGEN 37 mg/dL (7-18); CALCIUM 8.9 mg/dL (8.5-10.1); CHLORIDE 100 mmol/L (98-107); CO2 36 mmol/L (21-32); CREATININE 0.7 mg/dL (0.55-1.3); GLUCOSE,RANDOM 112 mg/dL (74-106); POTASSIUM 4.4 mmol/L (3.5-5.1); SODIUM 141 mmol/L (136-145)
[2018-07-15] MEDS ORDERED: PT OWN MED DRAWER 7, Y5N ONE ×2 (10:12→21:03)
[2018-07-15] MEDS ORDERED: cefTRIAXone SODIUM 1 GM VIAL ONE ×2 (10:12→10:13)
[2018-07-15] MEDS ORDERED: DEXTROSE 5%-WATER - 50 ML IVPB ONE (10:13)
[2018-07-15] MEDS: FUROSEMIDE 20 MG TABLET (FP) PO SCH (10:16)
[2018-07-15] MEDS: METOPROLOL TARTRATE 25 MG TABLET (FP) PO SCH ×2 (10:16→21:06)
[2018-07-15] MEDS: methylPREDNISolone NA SUCC 40 MG/1 ML VIAL IVPB SCH ×2 (10:16→21:06)
[2018-07-15] MEDS: CEFTRIAXONE 1 GM in DEXTROSE 5%-WATER - 50 ML IVPB SCH (10:16)
[2018-07-15] MEDS: PANTOPRAZOLE 40 MG TABLET (FP) PO SCH (10:16)
[2018-07-15] MEDS: RANITIDINE HCL 150 MG TABLET (FP) PO SCH (10:16)
[2018-07-15] MEDS: TIOTROPIUM BROMIDE 2.5 MCG (SPIRIVA) RESPIMAT INHALER IH SCH (10:17)
[2018-07-15] MEDS: BUDESONIDE/FORMETEROL FUMARATE 80/4.5 mcg INHALER IH SCH ×2 (10:17→21:07)
--- NOTE | 2018-07-15 11:28 | PN ---
Progress Note (short form) - Note Progress Note: PULMONARY Breathing better today. Less cough. Ambulating with PT with minimal dyspnea. Vital Signs Period Temp Pulse Resp BP Sys/Armenta Pulse Ox Last 24 Hr 97 F-98.2 F 64-76 18-22 115-138/55-80 100 Gen: NAD at rest Heart: RRR Lung: distant breath sounds Abd: soft, nontender Ext: no edema CBC, BMP 07/15/18 06:30 07/15/18 06:30 Active Medications Acetaminophen (Tylenol -) 650 mg PO Q6H PRN PRN Reason: PAIN Last Admin: 07/10/18 02:25 Dose: 650 mg Albuterol Sulfate (Ventolin 0.083% Nebulizer Soln -) 1 amp NEB Q4H PRN PRN Reason: SHORT OF BREATH/WHEEZING Last Admin: 07/09/18 04:59 Dose: 1 amp Budesonide/Formoterol Fumarate (Symbicort 80/4.5mcg -) 2 puff IH BID [facility] Last Admin: 07/15/18 10:17 Dose: 2 puff Furosemide (Lasix -) 20 mg PO DAILY [facility] Last Admin: 07/15/18 10:16 Dose: 20 mg Guaifenesin (Robitussin -) 10 ml PO Q6H PRN PRN Reason: COUGH Ceftriaxone Sodium 1 gm/ (Dextrose) 50 mls @ 100 mls/hr IVPB DAILY [facility] Last Admin: 07/15/18 10:16 Dose: 100 mls/hr Azithromycin (Zithromax 500mg Ivpb (Pre-Docked)) 500 mg in 250 mls @ 250 mls/ hr IVPB DAILY [facility] Last Admin: 07/14/18 10:36 Dose: 250 mls/hr Insulin Aspart (Novolog Vial Sliding Scale -) 1 vial SQ ACHS [facility]; Protocol Last Admin: 07/15/18 06:14 Dose: Not Given Methylprednisolone Sodium Succinate (Solu-Medrol -) 30 mg IVPB BID [facility] Last Admin: 07/15/18 10:16 Dose: 30 mg Metoprolol Tartrate (Lopressor -) 25 mg PO BID [facility] Last Admin: 07/15/18 10:16 Dose: 25 mg Pantoprazole Sodium (Protonix -) 40 mg PO DAILY [facility] Last Admin: 07/15/18 10:16 Dose: 40 mg Ranitidine HCl (Zantac -) 150 mg PO DAILY [facility] Last Admin: 07/15/18 10:16 Dose: 150 mg Rosuvastatin Calcium (Crestor -) 20 mg PO HS [facility] Last Admin: 07/14/18 21:12 Dose: 20 mg Tiotropium [place] (Spiriva Respimat) 2 puff IH DAILY [facility] Last Admin: 07/15/18 10:17 Dose: 2 puff A/P Acute COPD Exacerbation s/p RT session NSCLC - Adenocarcinoma LV Diastolic Dysfunction HTN Hypothyroidism Hyperlipidemia - can change steroids to PO prednisone 40mg daily and taper as outpt - inhaled bronchodilators - on empiric antibiotics - O2 to keep SpO2 >90% - rehab/PT - DVT prophylaxis
[2018-07-15] MEDS: AZITHROMYCIN IVPB 500 MG/250 ML BAG IVPB SCH (11:38)
[2018-07-15 11:56] LABS: ANISOCYTOSIS 2+; MACROCYTOSIS 0; OVALOCYTE 1+; PLATELET ESTIMATE DECREASED
--- NOTE | 2018-07-15 14:51 | PN ---
Progress Note, Physician History of Present Illness: The patient is an 82 year old white female with a PMH of COPD (on 2L), Stage 3a NSCC lung cancer (currently on radiation), CAD s/p [place] (s/p cardiac stent x3), HTN, HLD was BIBEMS for acute onset of shortness of breath. Patient was completing her first radiation treatment today when she suddenly became short of breath. Denies chest pain, lightheadedness, nausea, diaphoresis. Grandson @ bedside assists in history, notes patient has been taking her Albuterol inhaler multiple times daily. Recent medication addition of Symbicort to her daily regimen. History limited as patient tachycardic, tachypneic @ presentation. NKDA Surgical: Cardiac Stent x3, lung biopsy PMD: Dr. Mary Beth Stein Cardiology: Dr. Bah Pulmonology: Dr. Kern/Dr. Velazquez - Current Medication List Current Medications: Active Medications Acetaminophen (Tylenol -) 650 mg PO Q6H PRN PRN Reason: PAIN Last Admin: 07/10/18 02:25 Dose: 650 mg Albuterol Sulfate (Ventolin 0.083% Nebulizer Soln -) 1 amp NEB Q4H PRN PRN Reason: SHORT OF BREATH/WHEEZING Last Admin: 07/09/18 04:59 Dose: 1 amp Budesonide/Formoterol Fumarate (Symbicort 80/4.5mcg -) 2 puff IH BID [facility] Last Admin: 07/15/18 10:17 Dose: 2 puff Furosemide (Lasix -) 20 mg PO DAILY [facility] Last Admin: 07/15/18 10:16 Dose: 20 mg Guaifenesin (Robitussin -) 10 ml PO Q6H PRN PRN Reason: COUGH Ceftriaxone Sodium 1 gm/ (Dextrose) 50 mls @ 100 mls/hr IVPB DAILY [facility] Last Admin: 07/15/18 10:16 Dose: 100 mls/hr Azithromycin (Zithromax 500mg Ivpb (Pre-Docked)) 500 mg in 250 mls @ 250 mls/ hr IVPB DAILY [facility] Last Admin: 07/15/18 11:38 Dose: 250 mls/hr Insulin Aspart (Novolog Vial Sliding Scale -) 1 vial SQ ACHS [facility]; Protocol Last Admin: 07/15/18 11:41 Dose: Not Given Methylprednisolone Sodium Succinate (Solu-Medrol -) 30 mg IVPB BID [facility] Last Admin: 07/15/18 10:16 Dose: 30 mg Metoprolol Tartrate (Lopressor -) 25 mg PO BID [facility] Last Admin: 07/15/18 10:16 Dose: 25 mg Pantoprazole Sodium (Protonix -) 40 mg PO DAILY [facility] Last Admin: 07/15/18 10:16 Dose: 40 mg Ranitidine HCl (Zantac -) 150 mg PO DAILY [facility] Last Admin: 07/15/18 10:16 Dose: 150 mg Rosuvastatin Calcium (Crestor -) 20 mg PO HS [facility] Last Admin: 07/14/18 21:12 Dose: 20 mg Tiotropium [place] (Spiriva Respimat) 2 puff IH DAILY [facility] Last Admin: 07/15/18 10:17 Dose: 2 puff - Objective Vital Signs: Vital Signs Temperature 97.2 F L 07/15/18 06:00 Pulse Rate 72 07/15/18 06:00 Respiratory Rate 18 07/15/18 06:00 Blood Pressure 118/56 L 07/15/18 06:00 O2 Sat by Pulse Oximetry (%) 100 07/14/18 21:00 Eyes: Yes: WNL, Conjunctiva Clear, EOM Intact HENT: Yes: WNL, Atraumatic, Normocephalic Neck: Yes: WNL, Supple, Trachea Midline Cardiovascular: Yes: WNL, Regular Rate and Rhythm Respiratory: Yes: WNL, Regular, CTA Bilaterally Gastrointestinal: Yes: WNL, Normal Bowel Sounds Genitourinary: Yes: WNL Musculoskeletal: Yes: WNL Extremities: Yes: WNL Edema: No Integumentary: Yes: WNL Neurological: Yes: WNL, Alert, Oriented ...Motor Strength: WNL Psychiatric: Yes: WNL Labs: CBC, BMP 07/15/18 06:30 07/15/18 06:30 INR, PTT INR 1.01 (0.83-1.09) 07/08/18 16:43 Assessment/Plan - Problems (1) Elevated troponin I level Code(s): R74.8 - ABNORMAL LEVELS OF OTHER SERUM ENZYMES (2) Adenocarcinoma, lung Code(s): C34.90 - MALIGNANT NEOPLASM OF UNSP PART OF UNSP BRONCHUS OR LUNG (3) Shortness of breath Code(s): R06.02 - SHORTNESS OF BREATH (4) HTN (hypertension) Code(s): I10 - ESSENTIAL (PRIMARY) HYPERTENSION (5) Hyperlipidemia Code(s): E78.5 - HYPERLIPIDEMIA, UNSPECIFIED (6) Sepsis Assessment/Plan: Pt is on antibiotics; no growth in blood; Legionella Ag, Strep Pneumonia in urine. Code(s): A41.9 - SEPSIS, UNSPECIFIED ORGANISM (7) Acute on chronic diastolic CHF (congestive heart failure) Assessment/Plan: On metoprolol Furosemide; give additional 20 mg IVP today (SOB: pleural effusion slightly increased on CT) f/u BUn/Cr, electrolytes, daily weight, Is and Os. Code(s): I50.33 - ACUTE ON CHRONIC DIASTOLIC (CONGESTIVE) HEART FAILURE (8) Thrombocytopenia Assessment/Plan: Developed during this admission. Would stop ASA; f/u etiology. Code(s): D69.6 - THROMBOCYTOPENIA, UNSPECIFIED
[2018-07-15] MEDS: GABAPENTIN 100 MG CAPSULE (FP) PO SCH (20:32)
[2018-07-15] MEDS ORDERED: ROSUVASTATIN CA 10 MG TABLET (FP) ONE (21:03)
[2018-07-15] MEDS: ROSUVASTATIN CA 20 MG TABLET (FP) PO SCH (21:06)
[2018-07-16] MEDS: INSULIN SLIDING SCALE (NOVOLOG) 1 VIAL SQ SCH ×4 (06:08→21:25)
[2018-07-16 07:21] LABS: BASO % 1.1 % (0-2.0); HEMATOCRIT 37.6 % (32.4-45.2); HEMOGLOBIN 11.6 GM/dL (10.7-15.3); LYMPH % 1.6 % (8-40); MCH 27.7 pg (25.7-33.7); MCHC 30.7 g/dl (32.0-36.0); MEAN PLT VOLUME 10.8 fl (7.5-11.1); MONO % 2.5 % (3.8-10.2); NEUT % 94.8 % (42.8-82.8); PLATELET COUNT 102 K/MM3 (134-434); RBC 4.18 M/mm3 (3.60-5.2); RDW 16.7 % (11.6-15.6); WHITE BLOOD COUNT 11.4 K/mm3 (4.0-10.0)
[2018-07-16 07:57] LABS: ALBUMIN 2.7 g/dl (3.4-5.0); ALK PHOS 55 U/L (45-117); ANION GAP 6 MMOL/L (8-16); BILIRUBIN,TOTAL 0.2 mg/dL (0.2-1); BLOOD UREA NITROGEN 40 mg/dL (7-18); CALCIUM 8.7 mg/dL (8.5-10.1); CHLORIDE 101 mmol/L (98-107); CO2 34 mmol/L (21-32); CREATININE 0.7 mg/dL (0.55-1.3); GLUCOSE,RANDOM 176 mg/dL (74-106); POTASSIUM 4.3 mmol/L (3.5-5.1); SGOT/AST 127 U/L (15-37); SGPT/ALT 249 U/L (13-61); SODIUM 140 mmol/L (136-145); TOT PROT 5.2 g/dl (6.4-8.2)
[2018-07-16] MEDS: ALBUTEROL SO4 0.083% IH SOL 2.5 MG/3 ML VIAL.NEB. NEB PRN (09:02)
--- NOTE | 2018-07-16 09:33 | PN ---
Progress Note, Physician Chief Complaint: OOB to chair no new c.o - said she feels more congested and SOB today high LFTs - to be seen by GI and have liver US d/w pt - Current Medication List Current Medications: Active Medications Acetaminophen (Tylenol -) 650 mg PO Q6H PRN PRN Reason: PAIN Last Admin: 07/10/18 02:25 Dose: 650 mg Albuterol Sulfate (Ventolin 0.083% Nebulizer Soln -) 1 amp NEB Q4H PRN PRN Reason: SHORT OF BREATH/WHEEZING Last Admin: 07/16/18 09:02 Dose: 1 amp Budesonide/Formoterol Fumarate (Symbicort 80/4.5mcg -) 2 puff IH BID [facility] Last Admin: 07/15/18 21:07 Dose: 2 puff Furosemide (Lasix -) 20 mg PO DAILY [facility] Last Admin: 07/15/18 10:16 Dose: 20 mg Gabapentin (Neurontin -) 100 mg PO DAILY [facility] Last Admin: 07/15/18 20:32 Dose: 100 mg Guaifenesin (Robitussin -) 10 ml PO Q6H PRN PRN Reason: COUGH Ceftriaxone Sodium 1 gm/ (Dextrose) 50 mls @ 100 mls/hr IVPB DAILY [facility] Last Admin: 07/15/18 10:16 Dose: 100 mls/hr Azithromycin (Zithromax 500mg Ivpb (Pre-Docked)) 500 mg in 250 mls @ 250 mls/ hr IVPB DAILY [facility] Last Admin: 07/15/18 11:38 Dose: 250 mls/hr Insulin Aspart (Novolog Vial Sliding Scale -) 1 vial SQ ACHS [facility]; Protocol Last Admin: 07/16/18 06:08 Dose: Not Given Methylprednisolone Sodium Succinate (Solu-Medrol -) 30 mg IVPB BID [facility] Last Admin: 07/15/18 21:06 Dose: 30 mg Metoprolol Tartrate (Lopressor -) 25 mg PO BID [facility] Last Admin: 07/15/18 21:06 Dose: 25 mg Pantoprazole Sodium (Protonix -) 40 mg PO DAILY [facility] Last Admin: 07/15/18 10:16 Dose: 40 mg Ranitidine HCl (Zantac -) 150 mg PO DAILY [facility] Last Admin: 07/15/18 10:16 Dose: 150 mg Rosuvastatin Calcium (Crestor -) 20 mg PO HS [facility] Last Admin: 07/15/18 21:06 Dose: 20 mg Tiotropium [place] (Spiriva Respimat) 2 puff IH DAILY [facility] Last Admin: 07/15/18 10:17 Dose: 2 puff - Objective Vital Signs: Vital Signs Temperature 97.6 F 07/16/18 06:00 Pulse Rate 67 07/16/18 06:00 Respiratory Rate 20 07/16/18 06:00 Blood Pressure 131/64 07/16/18 06:00 O2 Sat by Pulse Oximetry (%) 100 07/15/18 21:00 Constitutional: Yes: No Distress, Calm Eyes: Yes: Conjunctiva Clear HENT: Yes: Atraumatic Neck: Yes: Supple Cardiovascular: Yes: Regular Rate and Rhythm Respiratory: Yes: Rales Gastrointestinal: Yes: Soft. No: Tenderness Genitourinary: No: CVA Tenderness - Left, CVA Tenderness - Right, Hematuria Musculoskeletal: No: Joint Stiffness, Joint Swelling Extremities: No: Cold, Cool, Cyanosis Edema: No Integumentary: No: Rash, Venous Stasis Changes Neurological: Yes: WNL, Alert, Oriented ...Motor Strength: WNL Psychiatric: Yes: WNL, Alert, Oriented. No: Agitated, Suicidal Ideation Labs: CBC, BMP 07/16/18 06:15 07/16/18 06:15 INR, PTT INR 1.01 (0.83-1.09) 07/08/18 16:43 - ....Imaging Other: Report Reviewed Assessment/Plan The patient is an 82 year old female with a PMH of COPD (on 2L), Stage 3a NSCC ( currently on radiation), CAD s/p [place] (s/p cardiac stent x3), HTN, HLD \admitted with acute onset of shortness of breath, acute on chronic COPD exac and bronchitis iv steroids, nebs, O2 and iv antibiotics PULM, Cardiology f/u pain meds prn; tylenol; neurontin hematuria h/o renal stones f/u; high LFTs: GI eval; liver US ONC f/u f/u labs DVT pfx prognosis guarded d/w pt and staff
[2018-07-16] MEDS ORDERED: cefTRIAXone SODIUM 1 GM VIAL ONE (09:34)
[2018-07-16] MEDS ORDERED: DEXTROSE 5%-WATER - 50 ML IVPB ONE (09:34)
[2018-07-16] MEDS: CEFTRIAXONE 1 GM in DEXTROSE 5%-WATER - 50 ML IVPB SCH (09:48)
[2018-07-16] MEDS: AZITHROMYCIN IVPB 500 MG/250 ML BAG IVPB SCH (09:48)
[2018-07-16] MEDS: FUROSEMIDE 20 MG TABLET (FP) PO SCH (09:52)
[2018-07-16] MEDS: PANTOPRAZOLE 40 MG TABLET (FP) PO SCH (09:53)
[2018-07-16] MEDS: RANITIDINE HCL 150 MG TABLET (FP) PO SCH (09:53)
[2018-07-16] MEDS: METOPROLOL TARTRATE 25 MG TABLET (FP) PO SCH ×2 (09:53→21:26)
[2018-07-16] MEDS: GABAPENTIN 100 MG CAPSULE (FP) PO SCH (09:53)
[2018-07-16] MEDS: methylPREDNISolone NA SUCC 40 MG/1 ML VIAL IVPB SCH ×2 (09:53→21:27)
[2018-07-16] MEDS: TIOTROPIUM BROMIDE 2.5 MCG (SPIRIVA) RESPIMAT INHALER IH SCH (09:54)
[2018-07-16] MEDS: BUDESONIDE/FORMETEROL FUMARATE 80/4.5 mcg INHALER IH SCH ×2 (09:55→21:28)
--- NOTE | 2018-07-16 10:38 | PN ---
Progress Note, Physician History of Present Illness: PULMONARY ALERT,C/O CHEST TIGHTNESS,LESS DYSPNEIC - Current Medication List Current Medications: Active Medications Acetaminophen (Tylenol -) 650 mg PO Q6H PRN PRN Reason: PAIN Last Admin: 07/10/18 02:25 Dose: 650 mg Albuterol Sulfate (Ventolin 0.083% Nebulizer Soln -) 1 amp NEB Q4H PRN PRN Reason: SHORT OF BREATH/WHEEZING Last Admin: 07/16/18 09:02 Dose: 1 amp Budesonide/Formoterol Fumarate (Symbicort 80/4.5mcg -) 2 puff IH BID [facility] Last Admin: 07/16/18 09:55 Dose: 2 puff Furosemide (Lasix -) 20 mg PO DAILY [facility] Last Admin: 07/16/18 09:52 Dose: 20 mg Gabapentin (Neurontin -) 100 mg PO DAILY [facility] Last Admin: 07/16/18 09:53 Dose: 100 mg Guaifenesin (Robitussin -) 10 ml PO Q6H PRN PRN Reason: COUGH Ceftriaxone Sodium 1 gm/ (Dextrose) 50 mls @ 100 mls/hr IVPB DAILY [facility] Last Admin: 07/16/18 09:48 Dose: 100 mls/hr Azithromycin (Zithromax 500mg Ivpb (Pre-Docked)) 500 mg in 250 mls @ 250 mls/ hr IVPB DAILY [facility] Last Admin: 07/16/18 09:48 Dose: 250 mls/hr Insulin Aspart (Novolog Vial Sliding Scale -) 1 vial SQ ACHS [facility]; Protocol Last Admin: 07/16/18 06:08 Dose: Not Given Methylprednisolone Sodium Succinate (Solu-Medrol -) 30 mg IVPB BID [facility] Last Admin: 07/16/18 09:53 Dose: 30 mg Metoprolol Tartrate (Lopressor -) 25 mg PO BID [facility] Last Admin: 07/16/18 09:53 Dose: 25 mg Pantoprazole Sodium (Protonix -) 40 mg PO DAILY [facility] Last Admin: 07/16/18 09:53 Dose: 40 mg Ranitidine HCl (Zantac -) 150 mg PO DAILY [facility] Last Admin: 07/16/18 09:53 Dose: 150 mg Rosuvastatin Calcium (Crestor -) 20 mg PO HS [facility] Last Admin: 07/15/18 21:06 Dose: 20 mg Tiotropium [place] (Spiriva Respimat) 2 puff IH DAILY [facility] Last Admin: 07/16/18 09:54 Dose: 2 puff - Objective Vital Signs: Vital Signs Temperature 97.6 F 07/16/18 06:00 Pulse Rate 67 07/16/18 06:00 Respiratory Rate 20 07/16/18 06:00 Blood Pressure 131/64 07/16/18 06:00 O2 Sat by Pulse Oximetry (%) 100 07/15/18 21:00 Constitutional: Yes: Calm, Thin Eyes: Yes: WNL HENT: Yes: WNL Neck: Yes: WNL Cardiovascular: Yes: Regular Rate and Rhythm, S1, S2 Respiratory: Yes: Diminished Extremities: Yes: WNL Edema: No Labs: CBC, BMP 07/16/18 06:15 07/16/18 06:15 INR, PTT INR 1.01 (0.83-1.09) 07/08/18 16:43 Assessment/Plan Problem List - Problems (1) Adenocarcinoma, lung Code(s): C34.90 - MALIGNANT NEOPLASM OF UNSP PART OF UNSP BRONCHUS OR LUNG (2) ASHD (arteriosclerotic heart disease) Code(s): I25.10 - ATHSCL HEART DISEASE OF [place] CORONARY ARTERY W/O ANG PCTRS (3) Anxiety and depression Code(s): F41.9 - ANXIETY DISORDER, UNSPECIFIED; F32.9 - MAJOR DEPRESSIVE DISORDER, SINGLE EPISODE, UNSPECIFIED (4) COPD (chronic obstructive pulmonary disease) Code(s): J44.9 - CHRONIC OBSTRUCTIVE PULMONARY DISEASE, UNSPECIFIED Qualifiers: COPD type: unspecified COPD Qualified Code(s): J44.9 - Chronic obstructive pulmonary disease, unspecified (5) COPD exacerbation Code(s): J44.1 - CHRONIC OBSTRUCTIVE PULMONARY DISEASE W (ACUTE) EXACERBATION (6) Cough Code(s): R05 - COUGH (7) Diastolic CHF Code(s): I50.30 - UNSPECIFIED DIASTOLIC (CONGESTIVE) HEART FAILURE (8) HTN (hypertension) Code(s): I10 - ESSENTIAL (PRIMARY) HYPERTENSION (9) Hyperlipidemia Code(s): E78.5 - HYPERLIPIDEMIA, UNSPECIFIED (10) Hypothyroid Code(s): E03.9 - HYPOTHYROIDISM, UNSPECIFIED (11) Shortness of breath Code(s): R06.02 - SHORTNESS OF BREATH Assessment/Plan Medrol O2 to maintain saturation 88% to 92% BD TX standing and PRN Spiriva VTE prophylaxis DR CARDOSO
[2018-07-16 10:59] LABS: ANISOCYTOSIS 0; MACROCYTOSIS 0; PLATELET ESTIMATE DECREASED
--- NOTE | 2018-07-16 11:40 | PN ---
Progress Note, Physician Chief Complaint: Pt A&Ox3; OOB in chair; felt throat discomfort and "congestion", with chest pain (sharp) only when she coughs History of Present Illness: The patient is an 82 year old white female with a PMH of COPD (on 2L), Stage 3a NSCC lung cancer (currently on radiation), CAD s/p [place] (s/p cardiac stent x3), HTN, HLD was BIBEMS for acute onset of shortness of breath. Patient was completing her first radiation treatment today when she suddenly became short of breath. Denies chest pain, lightheadedness, nausea, diaphoresis. Grandson @ bedside assists in history, notes patient has been taking her Albuterol inhaler multiple times daily. Recent medication addition of Symbicort to her daily regimen. History limited as patient tachycardic, tachypneic @ presentation. NKDA Surgical: Cardiac Stent x3, lung biopsy PMD: Dr. Mary Beth Stein Cardiology: Dr. Bah Pulmonology: Dr. Kern/Dr. Velazquez - Current Medication List Current Medications: Active Medications Acetaminophen (Tylenol -) 650 mg PO Q6H PRN PRN Reason: PAIN Last Admin: 07/10/18 02:25 Dose: 650 mg Albuterol Sulfate (Ventolin 0.083% Nebulizer Soln -) 1 amp NEB Q4H PRN PRN Reason: SHORT OF BREATH/WHEEZING Last Admin: 07/16/18 09:02 Dose: 1 amp Budesonide/Formoterol Fumarate (Symbicort 80/4.5mcg -) 2 puff IH BID [facility] Last Admin: 07/16/18 09:55 Dose: 2 puff Furosemide (Lasix -) 20 mg PO DAILY [facility] Last Admin: 07/16/18 09:52 Dose: 20 mg Gabapentin (Neurontin -) 100 mg PO DAILY [facility] Last Admin: 07/16/18 09:53 Dose: 100 mg Guaifenesin (Robitussin -) 10 ml PO Q6H PRN PRN Reason: COUGH Ceftriaxone Sodium 1 gm/ (Dextrose) 50 mls @ 100 mls/hr IVPB DAILY [facility] Last Admin: 07/16/18 09:48 Dose: 100 mls/hr Azithromycin (Zithromax 500mg Ivpb (Pre-Docked)) 500 mg in 250 mls @ 250 mls/ hr IVPB DAILY [facility] Last Admin: 07/16/18 09:48 Dose: 250 mls/hr Insulin Aspart (Novolog Vial Sliding Scale -) 1 vial SQ ACHS [facility]; Protocol Last Admin: 07/16/18 06:08 Dose: Not Given Methylprednisolone Sodium Succinate (Solu-Medrol -) 30 mg IVPB BID [facility] Last Admin: 07/16/18 09:53 Dose: 30 mg Metoprolol Tartrate (Lopressor -) 25 mg PO BID [facility] Last Admin: 07/16/18 09:53 Dose: 25 mg Pantoprazole Sodium (Protonix -) 40 mg PO DAILY [facility] Last Admin: 07/16/18 09:53 Dose: 40 mg Ranitidine HCl (Zantac -) 150 mg PO DAILY [facility] Last Admin: 07/16/18 09:53 Dose: 150 mg Rosuvastatin Calcium (Crestor -) 20 mg PO HS [facility] Last Admin: 07/15/18 21:06 Dose: 20 mg Tiotropium [place] (Spiriva Respimat) 2 puff IH DAILY [facility] Last Admin: 07/16/18 09:54 Dose: 2 puff - Objective Vital Signs: Vital Signs Temperature 97.6 F 07/16/18 06:00 Pulse Rate 67 07/16/18 06:00 Respiratory Rate 20 07/16/18 06:00 Blood Pressure 131/64 07/16/18 06:00 O2 Sat by Pulse Oximetry (%) 100 07/15/18 21:00 Constitutional: Yes: Anxious, Thin Eyes: Yes: WNL HENT: Yes: WNL Neck: Yes: WNL Cardiovascular: Yes: Regular Rate and Rhythm, S1, S2 Respiratory: Yes: Diminished, SOB Gastrointestinal: Yes: Soft ...Rectal Exam: Yes: Deferred Genitourinary: No: Anuria Breast(s): Yes: WNL Musculoskeletal: Yes: Muscle Weakness Extremities: Yes: Cool Edema: No Peripheral Pulses WNL: Yes Integumentary: Yes: WNL Neurological: Yes: Alert, Oriented, Weakness Psychiatric: Yes: Other (anxiety) Labs: CBC, BMP 07/16/18 06:15 07/16/18 06:15 INR, PTT INR 1.01 (0.83-1.09) 07/08/18 16:43 Abnormal Lab Results 07/17/18 07/18/18 07/18/18 06:30 06:30 06:30 WBC 10.8 H RDW 17.3 H Plt Count 116 L MPV 11.3 H Absolute Neuts (auto) 9.9 H Neutrophils % 91.8 H Neutrophils % (Manual) 96.0 H Lymphocytes % 2.1 L D Lymphocytes % (Manual) 1.0 L D Monocytes % (Manual) 3 L BUN 36 H Random Glucose 148 H AST 125 H ALT 372 H Total Protein 5.8 L Albumin 3.2 L Tumor Marker AFP 11.2 H Problem List - Problems (1) Elevated troponin I level Assessment/Plan: 0.02-->0.21-->0.19; normal CK EKG: sinus tachycardia; nonspecific STT changes. Pt likely has demand ischemia from exacerbation of COPD, diastolic CHF, CA, tachycardia. Given pt's advanced lung CA, would recommend conservative management of cardiac condition (she is on metoprolol, statin, ASA). Code(s): R74.8 - ABNORMAL LEVELS OF OTHER SERUM ENZYMES (2) Adenocarcinoma, lung Assessment/Plan: advanced COPD and lung CA. CT chest: Rt lesion with local destruction of ribs; left stable lesion; bilateral pleural effusion. F/u with oncologist, social worker psychiatric. Poor prognosis Code(s): C34.90 - MALIGNANT NEOPLASM OF UNSP PART OF UNSP BRONCHUS OR LUNG (3) Shortness of breath Assessment/Plan: Lung CA; COPD; diastolic CHF. CT chest results noted. Code(s): R06.02 - SHORTNESS OF BREATH (4) HTN (hypertension) Code(s): I10 - ESSENTIAL (PRIMARY) HYPERTENSION (5) Hyperlipidemia Code(s): E78.5 - HYPERLIPIDEMIA, UNSPECIFIED (6) Sepsis Assessment/Plan: Pt is on antibiotics; no growth in blood; Legionella Ag, Strep Pneumonia in urine. Code(s): A41.9 - SEPSIS, UNSPECIFIED ORGANISM (7) Acute on chronic diastolic CHF (congestive heart failure) Assessment/Plan: On metoprolol Furosemide f/u BUn/Cr, electrolytes, daily weight, Is and Os. Code(s): I50.33 - ACUTE ON CHRONIC DIASTOLIC (CONGESTIVE) HEART FAILURE (8) Thrombocytopenia Assessment/Plan: Developed during this admission. Would stop ASA; f/u etiology. Code(s): D69.6 - THROMBOCYTOPENIA, UNSPECIFIED
[2018-07-16] MEDS: guaiFENesin 200 MG/10 ML 10 ML UNIT-DOSE CUPS PO PRN (13:01)
[2018-07-16] MEDS: ACETAMINOPHEN 325 MG TABLET (FP) PO PRN (15:41)
--- NOTE | 2018-07-16 16:32 | CON.GI ---
Consult Consult Specialty:: Gastroenterology Referred by:: Dr Stein Reason for Consultation:: Abn LFTs - History of Present Illness Chief Complaint: Difficulty breathing History of Present Illness: 82F with recently diagnosed lung adenocarcinoma was BIBEMS when she developed respiratory distress during her first RT. She was found to have acute on chronic diastiolic CHF. Since admission she has developed a rise in her transaminases. She denies abdominal pain. She denies any h/o liver disease, IVDA , transfusion, tattoos or alcohol usage. Her brother required a liver transplant but she is not aware of the etiology of his liver disease. She has never had an EGD or a colonoscopy and tells me that she will not allow these to be done. - History Source History Provided By: Patient Limitations to Obtaining History: No Limitations - Past Medical History Cardio/Vascular: Yes: CAD (SC in 2006 requiring coronary stents), CHF, HTN, Hyperlipdemia Pulmonary: Yes: Bronchitis, Cancer (adenocarcinoma diagnosed 04/18), COPD, O2 Dependent Psych: Yes: Anxiety, Depression - Past Surgical History Past Surgical History: Yes: None - Alcohol/Substance Use Hx Alcohol Use: No History of Substance Use: reports: None - Smoking History Smoking history: Former smoker Have you smoked in the past 12 months: No If you are a former smoker, when did you quit?: 11 years ago - Social History Usual Living Arrangement: With Child ADL: Independent 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 Place of : [facility] History of Recent Travel: No Home Medications - Allergies Allergies/Adverse Reactions: Allergies Allergy/AdvReac Type Severity Reaction Status Date / Time No Known Allergies Allergy Verified 04/19/18 14:12 - Home Medications Home Medications: Ambulatory Orders Metoprolol Tartrate 25 mg PO BID 07/18/16 Rosuvastatin Calcium [Crestor] 20 mg PO HS 07/18/16 Acetaminophen [Tylenol .Regular Strength -] 650 mg PO Q6H PRN tablet 05/01/18 Albuterol 0.083% Nebulizer [place] [Ventolin 0.083% Nebulizer Soln -] 1 amp NEB Q4H PRN #90 amp 05/01/18 Aspirin [ASA -] 81 mg PO DAILY #90 tab 05/01/18 Clopidogrel Bisulfate [Plavix -] 75 mg PO DAILY #90 tab 05/01/18 Tiotropium [place] [Spiriva Respimat] 2 puff IH DAILY #90 inhaler 05/01/18 Budesonide/Formeterol Fumarate [SYMBICORT 80/4.5mcg -] 2 inh PO BID 07/08/18 Furosemide [Lasix -] 20 mg PO ASDIR 07/08/18 Family Disease History - Family Disease History Family Disease History: Diabetes: Father ( 73 diabetic complications), Daughter (breast cancer, CVAs), CA: Brother (NHL,larynx ca, liver transplant, unknown cancer), Sister (lung cancer), Daughter, Other: Mother ( of diverticulitis) Review of Systems - Review of Systems Constitutional: reports: Loss of Appetite, Malaise, Unintentional Wgt. Loss Eyes: reports: No Symptoms HENT: reports: No Symptoms Cardiovascular: reports: Chest Pain, Shortness of Breath Respiratory: reports: Exercise Intolerance Gastrointestinal: reports: No Symptoms Genitourinary: reports: No Symptoms Physical Exam-GI Vital Signs: Vital Signs Temperature 97.8 F 07/16/18 10:00 Pulse Rate 70 07/16/18 10:00 Respiratory Rate 18 07/16/18 10:00 Blood Pressure 134/56 L 07/16/18 10:00 O2 Sat by Pulse Oximetry (%) 100 07/15/18 21:00 CBC,CMP WBC 11.4 K/mm3 (4.0-10.0) H 07/16/18 06:15 RBC 4.18 M/mm3 (3.60-5.2) 07/16/18 06:15 Hgb 11.6 GM/dL (10.7-15.3) 07/16/18 06:15 Hct 37.6 % (32.4-45.2) 07/16/18 06:15 MCV 90.0 fl (80-96) 07/16/18 06:15 MCH 27.7 pg (25.7-33.7) 07/16/18 06:15 MCHC 30.7 g/dl (32.0-36.0) L 07/16/18 06:15 RDW 16.7 % (11.6-15.6) H 07/16/18 06:15 Plt Count 102 K/MM3 (134-434) L 07/16/18 06:15 MPV 10.8 fl (7.5-11.1) 07/16/18 06:15 Absolute Neuts (auto) 10.8 K/mm3 (1.5-8.0) H 07/16/18 06:15 Total Counted 100 07/09/18 06:45 Neutrophils % 94.8 % (42.8-82.8) H 07/16/18 06:15 Neutrophils % (Manual) 95.0 % (42.8-82.8) H 07/16/18 06:15 Band Neutrophils % 0.0 % 07/16/18 06:15 Lymphocytes % 1.6 % (8-40) L 07/16/18 06:15 Lymphocytes % (Manual) 2.0 % (8-40) L D 07/16/18 06:15 Monocytes % 2.5 % (3.8-10.2) L 07/16/18 06:15 Monocytes % (Manual) 3 % (3.8-10.2) L 07/16/18 06:15 Eosinophils % 0.0 % (0-4.5) 07/16/18 06:15 Eosinophils % (Manual) 0.0 % (0-4.5) 07/16/18 06:15 Basophils % 1.1 % (0-2.0) D 07/16/18 06:15 Basophils % (Manual) 0.0 % (0-2.0) 07/16/18 06:15 Myelocytes % (Man) 0 % (0-2) 07/16/18 06:15 Promyelocytes % (Man) 0 % (0-2) 07/16/18 06:15 Blast Cells % (Manual) 0 % (0-0) 07/16/18 06:15 Nucleated RBC % 0 % (0-0) 07/16/18 06:15 Metamyelocytes 0 % (0-2) 07/16/18 06:15 Hypochromia 0 07/16/18 06:15 Platelet Estimate Decreased 07/16/18 06:15 Platelet Comment Present 07/15/18 06:30 Polychromasia 0 07/16/18 06:15 Poikilocytosis 0 07/16/18 06:15 Anisocytosis 0 07/16/18 06:15 Microcytosis 0 07/16/18 06:15 Macrocytosis 0 07/16/18 06:15 Spherocytes 1+ 07/15/18 06:30 Tear Drop Cells 1+ 07/12/18 06:30 Ovalocytes 1+ 07/15/18 06:30 Eure Cells 1+ 07/15/18 06:30 Sodium 140 mmol/L (136-145) 07/16/18 06:15 Potassium 4.3 mmol/L (3.5-5.1) 07/16/18 06:15 Chloride 101 mmol/L (98-107) 07/16/18 06:15 Carbon Dioxide 34 mmol/L (21-32) H 07/16/18 06:15 Anion Gap 6 MMOL/L (8-16) L 07/16/18 06:15 BUN 40 mg/dL (7-18) H 07/16/18 06:15 Creatinine 0.7 mg/dL (0.55-1.3) 07/16/18 06:15 Creat Clearance w eGFR > 60 (>60) 07/16/18 06:15 POC Glucometer 137 UNITS (80-120) 07/16/18 12:58 Random Glucose 176 mg/dL (74-106) H 07/16/18 06:15 Lactic Acid 2.0 mmol/L (0.4-2.0) 07/08/18 16:43 Calcium 8.7 mg/dL (8.5-10.1) 07/16/18 06:15 Total Bilirubin 0.2 mg/dL (0.2-1) 07/16/18 06:15 AST 127 U/L (15-37) H 07/16/18 06:15 ALT 249 U/L (13-61) H 07/16/18 06:15 Alkaline Phosphatase 55 U/L (45-117) 07/16/18 06:15 Creatine Kinase 60 IU/L (26-192) 07/10/18 12:50 Troponin I 0.19 ng/ml (0.00-0.05) H 07/10/18 12:50 B-Natriuretic Peptide 2531.99 pg/ml (5-450) H 07/08/18 16:27 Total Protein 5.2 g/dl (6.4-8.2) L 07/16/18 06:15 Albumin 2.7 g/dl (3.4-5.0) L 07/16/18 06:15 Current Medications Generic Name Dose Route Start Last Admin Trade Name Freq PRN Reason Stop Dose Admin Acetaminophen 650 mg 07/08/18 19:43 07/16/18 15:41 Tylenol - PO 650 mg Q6H PRN Administration PAIN Albuterol Sulfate 1 amp 07/08/18 19:43 07/16/18 09:02 Ventolin 0.083% Nebulizer Soln - NEB 1 amp Q4H PRN Administration SHORT OF BREATH/WHEEZING Budesonide/Formoterol Fumarate 2 puff 07/10/18 22:00 07/16/18 09:55 Symbicort 80/4.5mcg - IH 2 puff BID JOHN Administration Furosemide 20 mg 07/11/18 10:00 07/16/18 09:52 Lasix - PO 20 mg DAILY JOHN Administration Gabapentin 100 mg 07/15/18 20:00 07/16/18 09:53 Neurontin - PO 100 mg DAILY JOHN Administration Guaifenesin 10 ml 07/08/18 19:43 07/16/18 13:01 Robitussin - PO 10 ml Q6H PRN Administration COUGH Ceftriaxone Sodium 1 gm/ 50 mls @ 100 mls/hr 07/09/18 10:30 07/16/18 09:48 Dextrose IVPB 100 mls/hr DAILY JOHN Administration Azithromycin 500 mg in 250 mls @ 250 mls/hr 07/09/18 10:30 07/16/18 09:48 Zithromax 500mg Ivpb (Pre-Docked) IVPB 250 mls/hr DAILY JOHN Administration Insulin Aspart 1 vial 07/08/18 22:00 07/16/18 13:02 Novolog Vial Sliding Scale - SQ Not Given ACHS [facility] Protocol Methylprednisolone Sodium Succinate 30 mg 07/13/18 22:00 07/16/18 09:53 Solu-Medrol - IVPB 30 mg BID JOHN Administration Metoprolol Tartrate 25 mg 07/08/18 22:00 07/16/18 09:53 Lopressor - PO 25 mg BID JOHN Administration Pantoprazole Sodium 40 mg 07/11/18 23:00 07/16/18 09:53 Protonix - PO 40 mg DAILY JOHN Administration Ranitidine HCl 150 mg 07/09/18 10:00 07/16/18 09:53 Zantac - PO 150 mg DAILY JOHN Administration Rosuvastatin Calcium 20 mg 07/08/18 22:00 07/15/18 21:06 Crestor - PO 20 mg HS JOHN Administration Tiotropium [place] 2 puff 07/09/18 10:00 07/16/18 09:54 Spiriva Respimat IH 2 puff DAILY JOHN Administration Constitutional: Yes: Calm Eyes: Yes: Conjunctiva Clear HENT: Yes: Atraumatic Neck: Yes: Supple Cardiovascular: Yes: Regular Rate and Rhythm, Tachycardia Respiratory: Yes: Hyperresonant, Rhonchi Gastrointestinal Inspection: Yes: Distention ...Auscultate: Yes: Normoactive Bowel Sounds ...Palpate: Yes: Soft, Other (nontender) ...Percussion: Yes: Tympanitic ...Rectal Exam: Yes: Guaiac Negative (no masses, brown guaiac negative stool) Musculoskeletal: Yes: WNL Neurological: Yes: Alert, Oriented Labs: CBC, BMP 07/16/18 06:15 07/16/18 06:15 INR, PTT INR 1.01 (0.83-1.09) 07/08/18 16:43 Laboratory Tests 07/08/18 07/09/18 07/10/18 16:27 06:45 07:00 AST 21 15 ALT 16 14 07/12/18 07/14/18 07/16/18 06:30 08:30 06:15 AST 40 H 119 H 127 H ALT 33 144 H 249 H Problem List - Problems (1) Abnormal liver enzymes Assessment/Plan: Suspect this reflects congestive hepatopathy but it could reflect the right lobe liver mass seen on ultrasound suggestive of a metastasis. This could alternatively relfect DILI due to Rocephin and/or Azithromycin more likely than the Crestor. I will screen for the chronic liver diseases that can be screened as an inpatient. Code(s): R74.8 - ABNORMAL LEVELS OF OTHER SERUM ENZYMES (2) Adenocarcinoma, lung Code(s): C34.90 - MALIGNANT NEOPLASM OF UNSP PART OF UNSP BRONCHUS OR LUNG (3) COPD (chronic obstructive pulmonary disease) Code(s): J44.9 - CHRONIC OBSTRUCTIVE PULMONARY DISEASE, UNSPECIFIED Qualifiers: COPD type: unspecified COPD Qualified Code(s): J44.9 - Chronic obstructive pulmonary disease, unspecified Assessment/Plan Suspect congestive hepatopathy or the liver metastasis as the cause of these LFT abnormalities but will screen for other etiologies.
--- NOTE | 2018-07-16 19:35 | PN ---
Progress Note (short form) - Note Progress Note: Patient seen and examined Overall breathing has improved during hospitilization Complains of chest wasll discomfort Last Vital Signs Temp Pulse Resp BP Pulse Ox 97.8 F 70 18 134/56 L 100 07/16/18 10:00 07/16/18 10:00 07/16/18 10:00 07/16/18 10:00 07/15/18 21:00 HEENT: KEIRY, EOM Intact Oropharynx: No thrush, No mucositis Cor: RSR, No murmurs, No gallops Lungs: diminished breath sounds Abd: Soft, Normal bowel sounds, No organomegaly Ext:No significant edema Skin: No rashes, Integument intact CBC, BMP 07/16/18 06:15 07/16/18 06:15 Current Medications Generic Name Dose Route Start Last Admin Trade Name Freq PRN Reason Stop Dose Admin Acetaminophen 650 mg 07/08/18 19:43 07/16/18 15:41 Tylenol - PO 650 mg Q6H PRN Administration PAIN Albuterol Sulfate 1 amp 07/08/18 19:43 07/16/18 09:02 Ventolin 0.083% Nebulizer Soln - NEB 1 amp Q4H PRN Administration SHORT OF BREATH/WHEEZING Budesonide/Formoterol Fumarate 2 puff 07/10/18 22:00 07/16/18 09:55 Symbicort 80/4.5mcg - IH 2 puff BID JOHN Administration Furosemide 20 mg 07/11/18 10:00 07/16/18 09:52 Lasix - PO 20 mg DAILY JOHN Administration Gabapentin 100 mg 07/15/18 20:00 07/16/18 09:53 Neurontin - PO 100 mg DAILY JOHN Administration Guaifenesin 10 ml 07/08/18 19:43 07/16/18 13:01 Robitussin - PO 10 ml Q6H PRN Administration COUGH Ceftriaxone Sodium 1 gm/ 50 mls @ 100 mls/hr 07/09/18 10:30 07/16/18 09:48 Dextrose IVPB 100 mls/hr DAILY JOHN Administration Azithromycin 500 mg in 250 mls @ 250 mls/hr 07/09/18 10:30 07/16/18 09:48 Zithromax 500mg Ivpb (Pre-Docked) IVPB 250 mls/hr DAILY JOHN Administration Insulin Aspart 1 vial 07/08/18 22:00 07/16/18 17:12 Novolog Vial Sliding Scale - SQ Not Given ACHS JOHN Protocol Methylprednisolone Sodium Succinate 30 mg 07/13/18 22:00 07/16/18 09:53 Solu-Medrol - IVPB 30 mg BID JOHN Administration Metoprolol Tartrate 25 mg 07/08/18 22:00 07/16/18 09:53 Lopressor - PO 25 mg BID JOHN Administration Pantoprazole Sodium 40 mg 07/11/18 23:00 07/16/18 09:53 Protonix - PO 40 mg DAILY JOHN Administration Ranitidine HCl 150 mg 07/09/18 10:00 07/16/18 09:53 Zantac - PO 150 mg DAILY JOHN Administration Rosuvastatin Calcium 20 mg 07/08/18 22:00 07/15/18 21:06 Crestor - PO 20 mg HS JOHN Administration Tiotropium [place] 2 puff 07/09/18 10:00 07/16/18 09:54 Spiriva Respimat IH 2 puff DAILY JOHN Administration Impression: Lung ca /adeno Liver mass- ?? met COPD Bone mets Plan CT abdomen to valuate liver
[2018-07-16] MEDS ORDERED: ROSUVASTATIN CA 10 MG TABLET (FP) ONE (20:56)
[2018-07-16] MEDS ORDERED: INSULIN (LEVEMIR) 100 UNITS/ML UNITS SQ ONE (20:56)
[2018-07-16] MEDS: ROSUVASTATIN CA 20 MG TABLET (FP) PO SCH (21:26)
[2018-07-17] MEDS: INSULIN SLIDING SCALE (NOVOLOG) 1 VIAL SQ SCH ×4 (06:03→22:08)
--- NOTE | 2018-07-17 06:40 | PN ---
Progress Note, Physician Chief Complaint: still SOB; occasional R sided CP; wuill add percocet prn; d/w pt liver US r/o mass to have CT she agreed - Current Medication List Current Medications: Active Medications Acetaminophen (Tylenol -) 650 mg PO Q6H PRN PRN Reason: PAIN Last Admin: 07/16/18 15:41 Dose: 650 mg Albuterol Sulfate (Ventolin 0.083% Nebulizer Soln -) 1 amp NEB Q4H PRN PRN Reason: SHORT OF BREATH/WHEEZING Last Admin: 07/16/18 09:02 Dose: 1 amp Budesonide/Formoterol Fumarate (Symbicort 80/4.5mcg -) 2 puff IH BID [facility] Last Admin: 07/16/18 21:28 Dose: 2 puff Furosemide (Lasix -) 20 mg PO DAILY [facility] Last Admin: 07/16/18 09:52 Dose: 20 mg Gabapentin (Neurontin -) 100 mg PO DAILY [facility] Last Admin: 07/16/18 09:53 Dose: 100 mg Guaifenesin (Robitussin -) 10 ml PO Q6H PRN PRN Reason: COUGH Last Admin: 07/16/18 13:01 Dose: 10 ml Ceftriaxone Sodium 1 gm/ (Dextrose) 50 mls @ 100 mls/hr IVPB DAILY [facility] Last Admin: 07/16/18 09:48 Dose: 100 mls/hr Azithromycin (Zithromax 500mg Ivpb (Pre-Docked)) 500 mg in 250 mls @ 250 mls/ hr IVPB DAILY [facility] Last Admin: 07/16/18 09:48 Dose: 250 mls/hr Insulin Aspart (Novolog Vial Sliding Scale -) 1 vial SQ ACHS [facility]; Protocol Last Admin: 07/17/18 06:03 Dose: Not Given Methylprednisolone Sodium Succinate (Solu-Medrol -) 30 mg IVPB BID [facility] Last Admin: 07/16/18 21:27 Dose: 30 mg Metoprolol Tartrate (Lopressor -) 25 mg PO BID [facility] Last Admin: 07/16/18 21:26 Dose: 25 mg Pantoprazole Sodium (Protonix -) 40 mg PO DAILY [facility] Last Admin: 07/16/18 09:53 Dose: 40 mg Ranitidine HCl (Zantac -) 150 mg PO DAILY [facility] Last Admin: 01/15/19 09:53 Dose: 150 mg Rosuvastatin Calcium (Crestor -) 20 mg PO HS [facility] Last Admin: 07/16/18 21:26 Dose: 20 mg Tiotropium [place] (Spiriva Respimat) 2 puff IH DAILY [facility] Last Admin: 07/16/18 09:54 Dose: 2 puff - Objective Vital Signs: Vital Signs Temperature 87.6 F L 07/17/18 06:00 Pulse Rate 68 07/17/18 06:00 Respiratory Rate 18 07/17/18 06:00 Blood Pressure 146/68 07/17/18 06:00 O2 Sat by Pulse Oximetry (%) 98 07/16/18 21:00 Constitutional: Yes: No Distress, Calm Eyes: Yes: Conjunctiva Clear HENT: Yes: Atraumatic Neck: Yes: Supple Cardiovascular: Yes: Regular Rate and Rhythm Respiratory: Yes: CTA Bilaterally Gastrointestinal: Yes: Soft. No: Tenderness Genitourinary: No: CVA Tenderness - Left, CVA Tenderness - Right Musculoskeletal: No: Joint Stiffness, Joint Swelling Extremities: No: Cold, Cool, Cyanosis Edema: No Integumentary: No: Rash, Venous Stasis Changes Neurological: Yes: WNL, Alert, Oriented ...Motor Strength: WNL Psychiatric: Yes: WNL, Alert, Oriented. 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
[2018-07-17 08:15] LABS: ALBUMIN 3.2 g/dl (3.4-5.0); BILIRUBIN,DIRECT 0.1 mg/dL (0.0-0.2); BILIRUBIN,TOTAL 0.3 mg/dL (0.2-1); TOT PROT 6.2 g/dl (6.4-8.2)
[2018-07-17] MEDS ORDERED: DEXTROSE 5%-WATER - 50 ML IVPB ONE (09:48)
[2018-07-17] MEDS ORDERED: cefTRIAXone SODIUM 1 GM VIAL ONE (09:48)
[2018-07-17] MEDS: methylPREDNISolone NA SUCC 40 MG/1 ML VIAL IVPB SCH ×2 (09:52→22:03)
[2018-07-17] MEDS: CEFTRIAXONE 1 GM in DEXTROSE 5%-WATER - 50 ML IVPB SCH (09:52)
[2018-07-17] MEDS: GABAPENTIN 100 MG CAPSULE (FP) PO SCH (09:53)
[2018-07-17] MEDS: FUROSEMIDE 20 MG TABLET (FP) PO SCH (09:53)
[2018-07-17] MEDS: RANITIDINE HCL 150 MG TABLET (FP) PO SCH (09:53)
[2018-07-17] MEDS: PANTOPRAZOLE 40 MG TABLET (FP) PO SCH (09:53)
[2018-07-17] MEDS: METOPROLOL TARTRATE 25 MG TABLET (FP) PO SCH ×2 (09:53→22:02)
[2018-07-17] MEDS: BUDESONIDE/FORMETEROL FUMARATE 80/4.5 mcg INHALER IH SCH ×2 (09:56→22:03)
[2018-07-17] MEDS: TIOTROPIUM BROMIDE 2.5 MCG (SPIRIVA) RESPIMAT INHALER IH SCH (09:56)
[2018-07-17] MEDS: AZITHROMYCIN IVPB 500 MG/250 ML BAG IVPB SCH (10:59)
--- NOTE | 2018-07-17 11:45 | PN ---
Progress Note, Physician History of Present Illness: The patient is an 82 year old white female with a PMH of COPD (on 2L), Stage 3a NSCC lung cancer (currently on radiation), CAD s/p AR (s/p cardiac stent x3), HTN, HLD was BIBEMS for acute onset of shortness of breath. Patient was completing her first radiation treatment today when she suddenly became short of breath. Denies chest pain, lightheadedness, nausea, diaphoresis. Grandson @ bedside assists in history, notes patient has been taking her Albuterol inhaler multiple times daily. Recent medication addition of Symbicort to her daily regimen. History limited as patient tachycardic, tachypneic @ presentation. NKDA Surgical: Cardiac Stent x3, lung biopsy PMD: Dr. Mary Beth Stein Cardiology: Dr. aBh Pulmonology: Dr. Kern/Dr. Velazquez - Current Medication List Current Medications: Active Medications Acetaminophen (Tylenol -) 650 mg PO Q6H PRN PRN Reason: PAIN Last Admin: 07/16/18 15:41 Dose: 650 mg Albuterol Sulfate (Ventolin 0.083% Nebulizer Soln -) 1 amp NEB Q4H PRN PRN Reason: SHORT OF BREATH/WHEEZING Last Admin: 07/16/18 09:02 Dose: 1 amp Budesonide/Formoterol Fumarate (Symbicort 80/4.5mcg -) 2 puff IH BID JOHN Last Admin: 07/17/18 09:56 Dose: 2 puff Furosemide (Lasix -) 20 mg PO DAILY JOHN Last Admin: 07/17/18 09:53 Dose: 20 mg Gabapentin (Neurontin -) 100 mg PO DAILY [facility] Last Admin: 07/17/18 09:53 Dose: 100 mg Guaifenesin (Robitussin -) 10 ml PO Q6H PRN PRN Reason: COUGH Last Admin: 07/16/18 13:01 Dose: 10 ml Heparin Sodium (Porcine) (Heparin -) 5,000 unit SQ BID [facility] Ceftriaxone Sodium 1 gm/ (Dextrose) 50 mls @ 100 mls/hr IVPB DAILY JOHN Last Admin: 07/17/18 09:52 Dose: 100 mls/hr Azithromycin (Zithromax 500mg Ivpb (Pre-Docked)) 500 mg in 250 mls @ 250 mls/ hr IVPB DAILY [facility] Last Admin: 07/17/18 10:59 Dose: 250 mls/hr Insulin Aspart (Novolog Vial Sliding Scale -) 1 vial SQ ACHS [facility]; Protocol Last Admin: 07/17/18 11:37 Dose: 6 units Methylprednisolone Sodium Succinate (Solu-Medrol -) 30 mg IVPB BID [facility] Last Admin: 07/17/18 09:52 Dose: 30 mg Metoprolol Tartrate (Lopressor -) 25 mg PO BID [facility] Last Admin: 07/17/18 09:53 Dose: 25 mg Pantoprazole Sodium (Protonix -) 40 mg PO DAILY [facility] Last Admin: 07/17/18 09:53 Dose: 40 mg Ranitidine HCl (Zantac -) 150 mg PO DAILY [facility] Last Admin: 07/17/18 09:53 Dose: 150 mg Rosuvastatin Calcium (Crestor -) 20 mg PO HS [facility] Last Admin: 07/16/18 21:26 Dose: 20 mg Tiotropium [place] (Spiriva Respimat) 2 puff IH DAILY [facility] Last Admin: 07/17/18 09:56 Dose: 2 puff - Objective Vital Signs: Vital Signs Temperature 95.7 F L 07/17/18 08:29 Pulse Rate 70 07/17/18 08:29 Respiratory Rate 16 07/17/18 08:29 Blood Pressure 150/68 07/17/18 08:29 O2 Sat by Pulse Oximetry (%) 98 07/16/18 21:00 Eyes: Yes: WNL, Conjunctiva Clear, EOM Intact HENT: Yes: WNL, Atraumatic, Normocephalic Neck: Yes: WNL, Supple, Trachea Midline Cardiovascular: Yes: WNL, Regular Rate and Rhythm Respiratory: Yes: Diminished Gastrointestinal: Yes: WNL, Normal Bowel Sounds Genitourinary: Yes: WNL Musculoskeletal: Yes: WNL Extremities: Yes: WNL Edema: No Integumentary: Yes: WNL Neurological: Yes: WNL, Alert, Oriented ...Motor Strength: WNL Psychiatric: Yes: WNL Labs: CBC, BMP 07/16/18 06:15 07/16/18 06:15 INR, PTT INR 1.01 (0.83-1.09) 07/08/18 16:43 Assessment/Plan - Problems (1) Elevated troponin I level Code(s): R74.8 - ABNORMAL LEVELS OF OTHER SERUM ENZYMES (2) Adenocarcinoma, lung Code(s): C34.90 - MALIGNANT NEOPLASM OF UNSP PART OF UNSP BRONCHUS OR LUNG (3) Shortness of breath Code(s): R06.02 - SHORTNESS OF BREATH (4) HTN (hypertension) Code(s): I10 - ESSENTIAL (PRIMARY) HYPERTENSION (5) Hyperlipidemia Code(s): E78.5 - HYPERLIPIDEMIA, UNSPECIFIED (6) Sepsis Assessment/Plan: Pt is on antibiotics; no growth in blood; Legionella Ag, Strep Pneumonia in urine. Code(s): A41.9 - SEPSIS, UNSPECIFIED ORGANISM (7) Acute on chronic diastolic CHF (congestive heart failure) Assessment/Plan: On metoprolol Furosemide; give additional 20 mg IVP today (SOB: pleural effusion slightly increased on CT) f/u BUn/Cr, electrolytes, daily weight, Is and Os. Code(s): I50.33 - ACUTE ON CHRONIC DIASTOLIC (CONGESTIVE) HEART FAILURE (8) Thrombocytopenia Assessment/Plan: Developed during this admission. Would stop ASA; f/u etiology. Code(s): D69.6 - THROMBOCYTOPENIA, UNSPECIFIED
--- NOTE | 2018-07-17 14:25 | PN ---
Progress Note (short form) - Note Progress Note: PULMONARY Still some shortness of breath. No wheezing. Vital Signs Period Temp Pulse Resp BP Sys/Armenta Pulse Ox Last 24 Hr 87.6 F-97.5 F 68-70 16-20 131-150/55-68 98-98 Gen: NAD at rest Heart: RRR Lung: distant breath sounds Abd: soft, nontender Ext: no edema CBC, BMP 07/16/18 06:15 07/16/18 06:15 Active Medications Acetaminophen (Tylenol -) 650 mg PO Q6H PRN PRN Reason: PAIN Last Admin: 07/16/18 15:41 Dose: 650 mg Albuterol Sulfate (Ventolin 0.083% Nebulizer Soln -) 1 amp NEB Q4H PRN PRN Reason: SHORT OF BREATH/WHEEZING Last Admin: 07/16/18 09:02 Dose: 1 amp Budesonide/Formoterol Fumarate (Symbicort 80/4.5mcg -) 2 puff IH BID [facility] Last Admin: 07/17/18 09:56 Dose: 2 puff Furosemide (Lasix -) 20 mg PO DAILY [facility] Last Admin: 07/17/18 09:53 Dose: 20 mg Gabapentin (Neurontin -) 100 mg PO DAILY [facility] Last Admin: 07/17/18 09:53 Dose: 100 mg Guaifenesin (Robitussin -) 10 ml PO Q6H PRN PRN Reason: COUGH Last Admin: 07/16/18 13:01 Dose: 10 ml Heparin Sodium (Porcine) (Heparin -) 5,000 unit SQ BID [facility] Ceftriaxone Sodium 1 gm/ (Dextrose) 50 mls @ 100 mls/hr IVPB DAILY [facility] Last Admin: 07/17/18 09:52 Dose: 100 mls/hr Azithromycin (Zithromax 500mg Ivpb (Pre-Docked)) 500 mg in 250 mls @ 250 mls/ hr IVPB DAILY [facility] Last Admin: 07/17/18 10:59 Dose: 250 mls/hr Insulin Aspart (Novolog Vial Sliding Scale -) 1 vial SQ ACHS [facility]; Protocol Last Admin: 07/17/18 11:37 Dose: 6 units Methylprednisolone Sodium Succinate (Solu-Medrol -) 30 mg IVPB BID [facility] Last Admin: 07/17/18 09:52 Dose: 30 mg Metoprolol Tartrate (Lopressor -) 25 mg PO BID [facility] Last Admin: 07/17/18 09:53 Dose: 25 mg Pantoprazole Sodium (Protonix -) 40 mg PO DAILY [facility] Last Admin: 07/17/18 09:53 Dose: 40 mg Ranitidine HCl (Zantac -) 150 mg PO DAILY [facility] Last Admin: 07/17/18 09:53 Dose: 150 mg Rosuvastatin Calcium (Crestor -) 20 mg PO HS [facility] Last Admin: 07/16/18 21:26 Dose: 20 mg Tiotropium [place] (Spiriva Respimat) 2 puff IH DAILY [facility] Last Admin: 07/17/18 09:56 Dose: 2 puff A/P Acute COPD Exacerbation s/p RT session NSCLC - Adenocarcinoma LV Diastolic Dysfunction HTN Hypothyroidism Hyperlipidemia - continue medrol at current dose - inhaled bronchodilators - on empiric antibiotics - f/u CT A/P - O2 to keep SpO2 >90% - rehab/PT - DVT prophylaxis
--- NOTE | 2018-07-17 19:09 | PN ---
Progress Note (short form) - Note Progress Note: Patient seen and examined Remains somewhat dyspneic and tachypneic Last Vital Signs Temp Pulse Resp BP Pulse Ox 97.9 F 66 20 114/51 L 98 07/17/18 17:14 07/17/18 17:14 07/17/18 17:14 07/17/18 17:14 07/17/18 09:00 HEENT: KEIRY, EOM Int Lungs: diminished breath sounds Abd: Soft, Normal bowel sounds, No organomegaly Ext:No significant edema Skin: No rashes, Integument intact CBC, BMP 07/16/18 06:15 07/16/18 06:15 Current Medications Generic Name Dose Route Start Last Admin Trade Name Freq PRN Reason Stop Dose Admin Acetaminophen 650 mg 07/08/18 19:43 07/16/18 15:41 Tylenol - PO 650 mg Q6H PRN Administration PAIN Albuterol Sulfate 1 amp 07/08/18 19:43 07/16/18 09:02 Ventolin 0.083% Nebulizer Soln - NEB 1 amp Q4H PRN Administration SHORT OF BREATH/WHEEZING Budesonide/Formoterol Fumarate 2 puff 07/10/18 22:00 07/17/18 09:56 Symbicort 80/4.5mcg - IH 2 puff BID JOHN Administration Furosemide 20 mg 07/11/18 10:00 07/17/18 09:53 Lasix - PO 20 mg DAILY JOHN Administration Gabapentin 100 mg 07/15/18 20:00 07/17/18 09:53 Neurontin - PO 100 mg DAILY JOHN Administration Guaifenesin 10 ml 07/08/18 19:43 07/16/18 13:01 Robitussin - PO 10 ml Q6H PRN Administration COUGH Heparin Sodium (Porcine) 5,000 unit 07/17/18 22:00 Heparin - SQ BID JOHN Ceftriaxone Sodium 1 gm/ 50 mls @ 100 mls/hr 07/09/18 10:30 07/17/18 09:52 Dextrose IVPB 100 mls/hr DAILY JOHN Administration Azithromycin 500 mg in 250 mls @ 250 mls/hr 07/09/18 10:30 07/17/18 10:59 Zithromax 500mg Ivpb (Pre-Docked) IVPB 250 mls/hr DAILY JOHN Administration Insulin Aspart 1 vial 07/08/18 22:00 07/17/18 17:42 Novolog Vial Sliding Scale - SQ Not Given ACHS JOHN Protocol Methylprednisolone Sodium Succinate 30 mg 07/13/18 22:00 07/17/18 09:52 Solu-Medrol - IVPB 30 mg BID JOHN Administration Metoprolol Tartrate 25 mg 07/08/18 22:00 07/17/18 09:53 Lopressor - PO 25 mg BID JOHN Administration Pantoprazole Sodium 40 mg 07/11/18 23:00 07/17/18 09:53 Protonix - PO 40 mg DAILY JOHN Administration Ranitidine HCl 150 mg 07/09/18 10:00 07/17/18 09:53 Zantac - PO 150 mg DAILY JOHN Administration Rosuvastatin Calcium 20 mg 07/08/18 22:00 07/16/18 21:26 Crestor - PO 20 mg HS JOHN Administration Tiotropium [place] 2 puff 07/09/18 10:00 07/17/18 09:56 Spiriva Respimat IH 2 puff DAILY JOHN Administration Impression: Adenoca of lung - rib mets COPD exacerbation at time of initial Rt Will discuss with RT.
[2018-07-17] MEDS: ALBUTEROL SO4 0.083% IH SOL 2.5 MG/3 ML VIAL.NEB. NEB PRN (21:10)
[2018-07-17] MEDS ORDERED: ROSUVASTATIN CA 10 MG TABLET (FP) ONE (21:59)
[2018-07-17] MEDS ORDERED: PT OWN MED DRAWER 7, Y5N ONE (22:00)
[2018-07-17] MEDS: HEPARIN NA (PORCINE) 5,000 UNITS/ML 1ML VIAL SQ SCH (22:02)
[2018-07-17] MEDS: ROSUVASTATIN CA 20 MG TABLET (FP) PO SCH (22:03)
[2018-07-18] MEDS: guaiFENesin 200 MG/10 ML 10 ML UNIT-DOSE CUPS PO PRN (03:00)
[2018-07-18 04:24] LABS: SERUM IRON SATURATION 22 % (15-55); TOTAL IRON BINDING CAPACITY 300 ug/dL (250-450); UIBC 234 ug/dL (118-369)
[2018-07-18] MEDS: INSULIN SLIDING SCALE (NOVOLOG) 1 VIAL SQ SCH ×4 (06:49→21:46)
[2018-07-18 07:31] LABS: BASO % 0.2 % (0-2.0); HEMATOCRIT 38.3 % (32.4-45.2); HEMOGLOBIN 12.5 GM/dL (10.7-15.3); LYMPH % 2.1 % (8-40); MCH 29.5 pg (25.7-33.7); MCHC 32.7 g/dl (32.0-36.0); MEAN CELL VOLUME 90.3 fl (80-96); MEAN PLT VOLUME 11.3 fl (7.5-11.1); MONO % 5.9 % (3.8-10.2); NEUT % 91.8 % (42.8-82.8); PLATELET COUNT 116 K/MM3 (134-434); RBC 4.24 M/mm3 (3.60-5.2); RDW 17.3 % (11.6-15.6); WHITE BLOOD COUNT 10.8 K/mm3 (4.0-10.0)
[2018-07-18] MEDS: ALBUTEROL SO4 0.083% IH SOL 2.5 MG/3 ML VIAL.NEB. NEB PRN ×2 (07:35→14:00)
[2018-07-18 08:48] LABS: ALBUMIN 3.2 g/dl (3.4-5.0); ALK PHOS 66 U/L (45-117); ANION GAP 9 MMOL/L (8-16); BILIRUBIN,TOTAL 0.3 mg/dL (0.2-1); BLOOD UREA NITROGEN 36 mg/dL (7-18); CALCIUM 9.6 mg/dL (8.5-10.1); CHLORIDE 98 mmol/L (98-107); CO2 32 mmol/L (21-32); CREATININE 0.7 mg/dL (0.55-1.3); GLUCOSE,RANDOM 148 mg/dL (74-106); POTASSIUM 4.7 mmol/L (3.5-5.1); SGOT/AST 125 U/L (15-37); SGPT/ALT 372 U/L (13-61); SODIUM 140 mmol/L (136-145); TOT PROT 5.8 g/dl (6.4-8.2)
--- NOTE | 2018-07-18 09:12 | PN ---
Progress Note, Physician Chief Complaint: OOB to chair has R sided chest wall pain, seen by onc and rad Tx still coughing and intermittent SOB; afebrile - Current Medication List Current Medications: Active Medications Acetaminophen (Tylenol -) 650 mg PO Q6H PRN PRN Reason: PAIN Last Admin: 07/16/18 15:41 Dose: 650 mg Albuterol Sulfate (Ventolin 0.083% Nebulizer Soln -) 1 amp NEB Q4H PRN PRN Reason: SHORT OF BREATH/WHEEZING Last Admin: 07/18/18 07:35 Dose: 1 amp Budesonide/Formoterol Fumarate (Symbicort 80/4.5mcg -) 2 puff IH BID [facility] Last Admin: 07/17/18 22:03 Dose: 2 puff Furosemide (Lasix -) 20 mg PO DAILY [facility] Last Admin: 07/17/18 09:53 Dose: 20 mg Gabapentin (Neurontin -) 100 mg PO DAILY [facility] Last Admin: 07/17/18 09:53 Dose: 100 mg Guaifenesin (Robitussin -) 10 ml PO Q6H PRN PRN Reason: COUGH Last Admin: 07/18/18 03:00 Dose: 10 ml Heparin Sodium (Porcine) (Heparin -) 5,000 unit SQ BID [facility] Last Admin: 07/17/18 22:02 Dose: 5,000 unit Ceftriaxone Sodium 1 gm/ (Dextrose) 50 mls @ 100 mls/hr IVPB DAILY [facility] Last Admin: 07/17/18 09:52 Dose: 100 mls/hr Azithromycin (Zithromax 500mg Ivpb (Pre-Docked)) 500 mg in 250 mls @ 250 mls/ hr IVPB DAILY [facility] Last Admin: 07/17/18 10:59 Dose: 250 mls/hr Insulin Aspart (Novolog Vial Sliding Scale -) 1 vial SQ ACHS [facility]; Protocol Last Admin: 07/18/18 06:49 Dose: 2 units Methylprednisolone Sodium Succinate (Solu-Medrol -) 30 mg IVPB BID [facility] Last Admin: 07/17/18 22:03 Dose: 30 mg Metoprolol Tartrate (Lopressor -) 25 mg PO BID [facility] Last Admin: 07/17/18 22:02 Dose: 25 mg Pantoprazole Sodium (Protonix -) 40 mg PO DAILY [facility] Last Admin: 07/17/18 09:53 Dose: 40 mg Ranitidine HCl (Zantac -) 150 mg PO DAILY [facility] Last Admin: 07/17/18 09:53 Dose: 150 mg Rosuvastatin Calcium (Crestor -) 20 mg PO HS [facility] Last Admin: 07/17/18 22:03 Dose: 20 mg Tiotropium [place] (Spiriva Respimat) 2 puff IH DAILY [facility] Last Admin: 07/17/18 09:56 Dose: 2 puff - Objective Vital Signs: Vital Signs Temperature 97.9 F 07/18/18 08:31 Pulse Rate 77 07/18/18 08:31 Respiratory Rate 16 07/18/18 08:31 Blood Pressure 131/56 L 07/18/18 08:31 O2 Sat by Pulse Oximetry (%) 98 07/17/18 21:00 Constitutional: Yes: No Distress, Calm Eyes: Yes: Conjunctiva Clear HENT: Yes: Atraumatic Neck: Yes: Supple Cardiovascular: Yes: Regular Rate and Rhythm Respiratory: Yes: Rales Gastrointestinal: Yes: Soft. No: Tenderness Genitourinary: No: CVA Tenderness - Left, CVA Tenderness - Right Musculoskeletal: No: Joint Stiffness, Joint Swelling Extremities: No: Cold, Cool Edema: No Integumentary: No: Rash, Venous Stasis Changes Neurological: Yes: WNL, Alert, Oriented ...Motor Strength: WNL Psychiatric: Yes: WNL, Alert, Oriented. No: Agitated, Suicidal Ideation Labs: CBC, BMP 07/18/18 06:30 07/18/18 06:30 INR, PTT INR 1.01 (0.83-1.09) 07/08/18 16:43 - ....Imaging Other: Report Reviewed Assessment/Plan The patient is an 82 year old female with a PMH of COPD (on 2L), Stage 3a NSCC ( currently on radiation), CAD s/p [place] (s/p cardiac stent x3), HTN, HLD \admitted with acute onset of shortness of breath, acute on chronic COPD exac and bronchitis iv steroids, nebs, O2 and iv antibiotics PULM, Cardiology f/u pain meds prn; tylenol; neurontin fro RUE pain; percocet prn for CP R sided hematuria h/o renal stones f/u; high LFT; liver mass ONC f/u, rad tx f/u - port placement? f/u labs DVT pfx prognosis guarded d/w pt and staff
[2018-07-18] MEDS ORDERED: cefTRIAXone SODIUM 1 GM VIAL ONE (09:29)
[2018-07-18] MEDS ORDERED: DEXTROSE 5%-WATER - 50 ML IVPB ONE (09:30)
[2018-07-18] MEDS: methylPREDNISolone NA SUCC 40 MG/1 ML VIAL IVPB SCH ×2 (09:33→21:45)
[2018-07-18] MEDS: PANTOPRAZOLE 40 MG TABLET (FP) PO SCH (09:33)
[2018-07-18] MEDS: RANITIDINE HCL 150 MG TABLET (FP) PO SCH (09:33)
[2018-07-18] MEDS: GABAPENTIN 100 MG CAPSULE (FP) PO SCH (09:33)
[2018-07-18] MEDS: FUROSEMIDE 20 MG TABLET (FP) PO SCH (09:33)
[2018-07-18] MEDS: METOPROLOL TARTRATE 25 MG TABLET (FP) PO SCH ×2 (09:33→21:45)
[2018-07-18] MEDS: CEFTRIAXONE 1 GM in DEXTROSE 5%-WATER - 50 ML IVPB SCH (09:34)
[2018-07-18] MEDS: HEPARIN NA (PORCINE) 5,000 UNITS/ML 1ML VIAL SQ SCH ×2 (09:34→21:45)
[2018-07-18] MEDS: BUDESONIDE/FORMETEROL FUMARATE 80/4.5 mcg INHALER IH SCH ×2 (09:35→21:54)
[2018-07-18] MEDS: TIOTROPIUM BROMIDE 2.5 MCG (SPIRIVA) RESPIMAT INHALER IH SCH (09:35)
--- NOTE | 2018-07-18 10:11 | PN ---
Progress Note (short form) - Note Progress Note: PULMONARY Coughing fit overnight with shortness of breath and chest tightness. CT A/P showing liver mass. Vital Signs Period Temp Pulse Resp BP Sys/Armenta Pulse Ox Last 24 Hr 97.5 F-98.1 F 65-77 16-20 114-145/50-78 98 Gen: NAD at rest Heart: RRR Lung: distant breath sounds Abd: soft, nontender Ext: no edema CBC, BMP 07/18/18 06:30 07/18/18 06:30 Active Medications Acetaminophen (Tylenol -) 650 mg PO Q6H PRN PRN Reason: PAIN Last Admin: 07/16/18 15:41 Dose: 650 mg Albuterol Sulfate (Ventolin 0.083% Nebulizer Soln -) 1 amp NEB Q4H PRN PRN Reason: SHORT OF BREATH/WHEEZING Last Admin: 07/18/18 07:35 Dose: 1 amp Budesonide/Formoterol Fumarate (Symbicort 80/4.5mcg -) 2 puff IH BID [facility] Last Admin: 07/18/18 09:35 Dose: 2 puff Furosemide (Lasix -) 20 mg PO DAILY [facility] Last Admin: 07/18/18 09:33 Dose: 20 mg Gabapentin (Neurontin -) 100 mg PO DAILY [facility] Last Admin: 07/18/18 09:33 Dose: 100 mg Guaifenesin (Robitussin -) 10 ml PO Q6H PRN PRN Reason: COUGH Last Admin: 07/18/18 03:00 Dose: 10 ml Heparin Sodium (Porcine) (Heparin -) 5,000 unit SQ BID [facility] Last Admin: 07/18/18 09:34 Dose: 5,000 unit Ceftriaxone Sodium 1 gm/ (Dextrose) 50 mls @ 100 mls/hr IVPB DAILY [facility] Last Admin: 07/18/18 09:34 Dose: 100 mls/hr Azithromycin (Zithromax 500mg Ivpb (Pre-Docked)) 500 mg in 250 mls @ 250 mls/ hr IVPB DAILY [facility] Last Admin: 07/17/18 10:59 Dose: 250 mls/hr Insulin Aspart (Novolog Vial Sliding Scale -) 1 vial SQ ACHS [facility]; Protocol Last Admin: 07/18/18 06:49 Dose: 2 units Methylprednisolone Sodium Succinate (Solu-Medrol -) 30 mg IVPB BID [facility] Last Admin: 07/18/18 09:33 Dose: 30 mg Metoprolol Tartrate (Lopressor -) 25 mg PO BID [facility] Last Admin: 07/18/18 09:33 Dose: 25 mg Pantoprazole Sodium (Protonix -) 40 mg PO DAILY [facility] Last Admin: 07/18/18 09:33 Dose: 40 mg Ranitidine HCl (Zantac -) 150 mg PO DAILY [facility] Last Admin: 07/18/18 09:33 Dose: 150 mg Rosuvastatin Calcium (Crestor -) 20 mg PO HS [facility] Last Admin: 07/17/18 22:03 Dose: 20 mg Tiotropium [place] (Spiriva Respimat) 2 puff IH DAILY [facility] Last Admin: 07/18/18 09:35 Dose: 2 puff A/P Acute COPD Exacerbation s/p RT session NSCLC - Adenocarcinoma LV Diastolic Dysfunction HTN Hypothyroidism Hyperlipidemia - continue medrol at current dose - inhaled bronchodilators - on empiric antibiotics - O2 to keep SpO2 >90% - rehab/PT - DVT prophylaxis
[2018-07-18] MEDS: AZITHROMYCIN IVPB 500 MG/250 ML BAG IVPB SCH (10:57)
[2018-07-18 11:23] LABS: ACANTHOCYTES 0; ANISOCYTOSIS 0; HELMET CELLS 0; HOWELL-JOLLY BODIES 0; MACROCYTOSIS 0; OVALOCYTE 0; PLATELET ESTIMATE DECREASED; ROULEAU 0; SICKELED CELLS 0; TARGET CELLS 0; TEAR DROP CELLS 0; TOXIC GRANULATION 0
[2018-07-18 12:28] LABS: TRANSGLUTAMINASE IGA < 2 U/mL (0-3); TRANSGLUTAMINASE IGG < 2 U/mL (0-5)
--- NOTE | 2018-07-18 15:52 | PN ---
Progress Note, Physician Chief Complaint: Pt A&Ox3; OOB in chair; feels calm, with no chest pain or dyspnea presently, but had cough during the night, with sharp right chest pain at times acoompanying it. History of Present Illness: The patient is an 82 year old white female with a PMH of COPD (on 2L), Stage 3a NSCC lung cancer (currently on radiation), CAD s/p [place] (s/p cardiac stent x3), HTN, HLD was BIBEMS for acute onset of shortness of breath. Patient was completing her first radiation treatment today when she suddenly became short of breath. Denies chest pain, lightheadedness, nausea, diaphoresis. Grandson @ bedside assists in history, notes patient has been taking her Albuterol inhaler multiple times daily. Recent medication addition of Symbicort to her daily regimen. History limited as patient tachycardic, tachypneic @ presentation. NKDA Surgical: Cardiac Stent x3, lung biopsy PMD: Dr. Mary Beth Stein Cardiology: Dr. Bah Pulmonology: Dr. Kern/Dr. Velazquez - Current Medication List Current Medications: Active Medications Acetaminophen (Tylenol -) 650 mg PO Q6H PRN PRN Reason: PAIN Last Admin: 07/16/18 15:41 Dose: 650 mg Albuterol Sulfate (Ventolin 0.083% Nebulizer Soln -) 1 amp NEB Q4H PRN PRN Reason: SHORT OF BREATH/WHEEZING Last Admin: 07/18/18 14:00 Dose: 1 amp Budesonide/Formoterol Fumarate (Symbicort 80/4.5mcg -) 2 puff IH BID [facility] Last Admin: 07/18/18 09:35 Dose: 2 puff Furosemide (Lasix -) 20 mg PO DAILY [facility] Last Admin: 07/18/18 09:33 Dose: 20 mg Gabapentin (Neurontin -) 100 mg PO DAILY [facility] Last Admin: 07/18/18 09:33 Dose: 100 mg Guaifenesin (Robitussin -) 10 ml PO Q6H PRN PRN Reason: COUGH Last Admin: 07/18/18 03:00 Dose: 10 ml Heparin Sodium (Porcine) (Heparin -) 5,000 unit SQ BID [facility] Last Admin: 07/18/18 09:34 Dose: 5,000 unit Ceftriaxone Sodium 1 gm/ (Dextrose) 50 mls @ 100 mls/hr IVPB DAILY [facility] Last Admin: 07/18/18 09:34 Dose: 100 mls/hr Azithromycin (Zithromax 500mg Ivpb (Pre-Docked)) 500 mg in 250 mls @ 250 mls/ hr IVPB DAILY [facility] Last Admin: 07/18/18 10:57 Dose: 250 mls/hr Insulin Aspart (Novolog Vial Sliding Scale -) 1 vial SQ ACHS [facility]; Protocol Last Admin: 07/18/18 11:32 Dose: 2 units Methylprednisolone Sodium Succinate (Solu-Medrol -) 30 mg IVPB BID [facility] Last Admin: 07/18/18 09:33 Dose: 30 mg Metoprolol Tartrate (Lopressor -) 25 mg PO BID [facility] Last Admin: 07/18/18 09:33 Dose: 25 mg Pantoprazole Sodium (Protonix -) 40 mg PO DAILY [facility] Last Admin: 07/18/18 09:33 Dose: 40 mg Ranitidine HCl (Zantac -) 150 mg PO DAILY [facility] Last Admin: 07/18/18 09:33 Dose: 150 mg Rosuvastatin Calcium (Crestor -) 20 mg PO HS [facility] Last Admin: 07/17/18 22:03 Dose: 20 mg Tiotropium [place] (Spiriva Respimat) 2 puff IH DAILY [facility] Last Admin: 07/18/18 09:35 Dose: 2 puff - Objective Vital Signs: Vital Signs Temperature 98.1 F 07/18/18 15:20 Pulse Rate 80 07/18/18 15:20 Respiratory Rate 18 07/18/18 15:20 Blood Pressure 115/70 07/18/18 15:20 O2 Sat by Pulse Oximetry (%) 98 07/17/18 21:00 Constitutional: Yes: Anxious, Thin Eyes: Yes: WNL HENT: Yes: WNL Cardiovascular: Yes: S1, S2 Respiratory: Yes: Diminished (markedly/chronic (bilaterally)), Tachypnea Gastrointestinal: Yes: Soft ...Rectal Exam: Yes: Deferred Genitourinary: Yes: Anuria Breast(s): Yes: WNL Musculoskeletal: Yes: Muscle Weakness Extremities: Yes: Cool Edema: No Peripheral Pulses WNL: Yes Integumentary: Yes: WNL Neurological: Yes: Alert, Oriented, Weakness Labs: CBC, BMP 07/18/18 06:30 01/17/19 06:30 INR, PTT INR 1.01 (0.83-1.09) 07/08/18 16:43 Abnormal Lab Results 07/17/18 07/18/18 07/18/18 06:30 06:30 06:30 WBC 10.8 H RDW 17.3 H Plt Count 116 L MPV 11.3 H Absolute Neuts (auto) 9.9 H Neutrophils % 91.8 H Neutrophils % (Manual) 96.0 H Lymphocytes % 2.1 L D Lymphocytes % (Manual) 1.0 L D Monocytes % (Manual) 3 L BUN 36 H Random Glucose 148 H AST 125 H ALT 372 H Total Protein 5.8 L Albumin 3.2 L Tumor Marker AFP 11.2 H Problem List - Problems (1) Elevated troponin I level Assessment/Plan: 0.02-->0.21-->0.19; normal CK EKG: sinus tachycardia; nonspecific STT changes; HR has since improved (for repeat EKG). Pt likely has demand ischemia from exacerbation of COPD, diastolic CHF, CA, tachycardia. Given pt's advanced lung CA, would recommend conservative management of cardiac condition (she is on metoprolol, statin, ASA). Code(s): R74.8 - ABNORMAL LEVELS OF OTHER SERUM ENZYMES (2) Adenocarcinoma, lung Assessment/Plan: advanced COPD and lung CA. CT chest: Rt lesion with local destruction of ribs; left stable lesion; bilateral pleural effusion. F/u with oncologist, lean leader. Abdomnal/pelvic CT: small pleural effusions. Diverticulosis and gallstones (no acute processes). Code(s): C34.90 - MALIGNANT NEOPLASM OF UNSP PART OF UNSP BRONCHUS OR LUNG (3) Shortness of breath Assessment/Plan: Lung CA; COPD; diastolic CHF. CT chest results noted. Code(s): R06.02 - SHORTNESS OF BREATH (4) HTN (hypertension) Assessment/Plan: On metoprolol and furosemide. Code(s): I10 - ESSENTIAL (PRIMARY) HYPERTENSION (5) Hyperlipidemia Code(s): E78.5 - HYPERLIPIDEMIA, UNSPECIFIED (6) Sepsis Code(s): A41.9 - SEPSIS, UNSPECIFIED ORGANISM (7) Acute on chronic diastolic CHF (congestive heart failure) Code(s): I50.33 - ACUTE ON CHRONIC DIASTOLIC (CONGESTIVE) HEART FAILURE (8) Thrombocytopenia Code(s): D69.6 - THROMBOCYTOPENIA, UNSPECIFIED
--- NOTE | 2018-07-18 17:00 | PN ---
Progress Note (short form) - Note Progress Note: Radiation Oncology Ms. Bauer is known to me, commenced RT last week for a locally advanced RUL peripheral ADCA w/local rib and chest wall destruction, questionable mediastinal nodes and contralateral lung nodules. Pt ultimately deferred further workup and agreed to definitive RT course of 7 weeks. On day of 1st RT, she came with recently increasing SOB x 1 wk despite adjusted respiratory tx by her pulmonary team. Now admitted with COPD exac and acute on chronic CHF. GI w/ u for abnl LFTs suggest liver metastasis on sonogram and CT. Has intermittent worsening of SOB and chest pain with cough. On exam, able to speak in complete sentences, able to lie flat in bed for 5 minutes on 2LNC. Point tenderness along lateral right ribs. No crepitus or mass. Impression: Probable metastatic NSCLC (adenoca) and local chest wall destruction , declining PS 2/2 comorbidities. Remains dyspneic on minimal exertion. Pain from primary lung tumor destruction. In view of poor PS and metastatic progression, would switch RT to a palliative regimen of 2-3 weeks to provide more efficient relief of chest wall pain. Will consider inpatient RT if unable to discharge safely in near future. Discussed with Dr. Alcala who will consider Keytruda to follow RT.
--- NOTE | 2018-07-18 18:49 | PN ---
Progress Note (short form) - Note Progress Note: VAscular surgery Lung CA with metastasis to chest wall. Called to evaluate pt for port. Currently pt is IV steriods for COPD exacerbation. Once cleared from pulmonary standpoint, will place port for chemotherapy. Will be on standby Tate Suarez DO
[2018-07-18] MEDS ORDERED: ROSUVASTATIN CA 10 MG TABLET (FP) ONE (21:35)
[2018-07-18] MEDS: ROSUVASTATIN CA 20 MG TABLET (FP) PO SCH (21:45)
--- NOTE | 2018-07-19 05:44 | PN ---
Progress Note, Physician Chief Complaint: OOB to chair still with cough and some SOB; tight chest consults and tests noted and d/w pt and dr Alcala new mass / liver CT - biopsy IR - Current Medication List Current Medications: Active Medications Acetaminophen (Tylenol -) 650 mg PO Q6H PRN PRN Reason: PAIN Last Admin: 07/16/18 15:41 Dose: 650 mg Albuterol Sulfate (Ventolin 0.083% Nebulizer Soln -) 1 amp NEB Q4H PRN PRN Reason: SHORT OF BREATH/WHEEZING Last Admin: 07/18/18 14:00 Dose: 1 amp Budesonide/Formoterol Fumarate (Symbicort 80/4.5mcg -) 2 puff IH BID [facility] Last Admin: 07/18/18 21:54 Dose: 2 puff Furosemide (Lasix -) 20 mg PO DAILY [facility] Last Admin: 07/18/18 09:33 Dose: 20 mg Gabapentin (Neurontin -) 100 mg PO DAILY [facility] Last Admin: 07/18/18 09:33 Dose: 100 mg Guaifenesin (Robitussin -) 10 ml PO Q6H PRN PRN Reason: COUGH Last Admin: 07/18/18 03:00 Dose: 10 ml Heparin Sodium (Porcine) (Heparin -) 5,000 unit SQ BID [facility] Last Admin: 07/18/18 21:45 Dose: 5,000 unit Ceftriaxone Sodium 1 gm/ (Dextrose) 50 mls @ 100 mls/hr IVPB DAILY [facility] Last Admin: 07/18/18 09:34 Dose: 100 mls/hr Azithromycin (Zithromax 500mg Ivpb (Pre-Docked)) 500 mg in 250 mls @ 250 mls/ hr IVPB DAILY [facility] Last Admin: 07/18/18 10:57 Dose: 250 mls/hr Insulin Aspart (Novolog Vial Sliding Scale -) 1 vial SQ ACHS [facility]; Protocol Last Admin: 07/18/18 21:46 Dose: Not Given Methylprednisolone Sodium Succinate (Solu-Medrol -) 30 mg IVPB BID [facility] Last Admin: 07/18/18 21:45 Dose: 30 mg Metoprolol Tartrate (Lopressor -) 25 mg PO BID [facility] Last Admin: 07/18/18 21:45 Dose: 25 mg Pantoprazole Sodium (Protonix -) 40 mg PO DAILY [facility] Last Admin: 07/18/18 09:33 Dose: 40 mg Ranitidine HCl (Zantac -) 150 mg PO DAILY [facility] Last Admin: 07/18/18 09:33 Dose: 150 mg Rosuvastatin Calcium (Crestor -) 20 mg PO HS [facility] Last Admin: 07/18/18 21:45 Dose: 20 mg Tiotropium [place] (Spiriva Respimat) 2 puff IH DAILY [facility] Last Admin: 07/18/18 09:35 Dose: 2 puff - Objective Vital Signs: Vital Signs Temperature 97.7 F 07/18/18 22:10 Pulse Rate 83 07/18/18 22:10 Respiratory Rate 20 07/18/18 22:10 Blood Pressure 128/65 07/18/18 22:10 O2 Sat by Pulse Oximetry (%) 98 07/17/18 21:00 Constitutional: Yes: No Distress, Calm Eyes: Yes: Conjunctiva Clear HENT: Yes: Atraumatic Neck: Yes: Supple Cardiovascular: Yes: Regular Rate and Rhythm Respiratory: Yes: Rales, Wheezes Gastrointestinal: Yes: Soft. No: Tenderness Musculoskeletal: No: Joint Stiffness, Joint Swelling Extremities: No: Cold, Cool, Cyanosis Edema: No Integumentary: No: Rash, Venous Stasis Changes Neurological: Yes: WNL, Alert, Oriented ...Motor Strength: WNL Psychiatric: Yes: WNL, Alert, Oriented. No: Agitated, Suicidal Ideation Labs: CBC, BMP 07/18/18 06:30 07/18/18 06:30 INR, PTT INR 1.01 (0.83-1.09) 07/08/18 16:43 - ....Imaging Other: Report Reviewed Assessment/Plan The patient is an 82 year old female with a PMH of COPD (on 2L), Stage 3a NSCC ( currently on radiation), CAD s/p [place] (s/p cardiac stent x3), HTN, HLD \admitted with acute onset of shortness of breath, acute on chronic COPD exac and bronchitis iv steroids, nebs, O2 and iv antibiotics PULM, Cardiology f/u pain meds prn; tylenol; neurontin fro RUE pain; percocet prn for CP R sided hematuria h/o renal stones f/u; high LFT; liver mass - IR liver biopsy ONC f/u, rad tx f/u - port placement on sunday f/u labs DVT pfx prognosis guarded d/w pt and staff
[2018-07-19] MEDS: INSULIN SLIDING SCALE (NOVOLOG) 1 VIAL SQ SCH ×4 (06:40→21:45)
[2018-07-19] MEDS: ALBUTEROL SO4 0.083% IH SOL 2.5 MG/3 ML VIAL.NEB. NEB PRN (07:55)
[2018-07-19] MEDS ORDERED: DEXTROSE 5%-WATER - 50 ML IVPB ONE (09:41)
[2018-07-19] MEDS ORDERED: cefTRIAXone SODIUM 1 GM VIAL ONE (09:41)
[2018-07-19] MEDS ORDERED: PT OWN MED DRAWER 7, Y5N ONE (09:41)
[2018-07-19] MEDS: FUROSEMIDE 20 MG TABLET (FP) PO SCH (09:46)
[2018-07-19] MEDS: PANTOPRAZOLE 40 MG TABLET (FP) PO SCH (09:47)
[2018-07-19] MEDS: GABAPENTIN 100 MG CAPSULE (FP) PO SCH (09:47)
[2018-07-19] MEDS: METOPROLOL TARTRATE 25 MG TABLET (FP) PO SCH ×2 (09:47→21:42)
[2018-07-19] MEDS: RANITIDINE HCL 150 MG TABLET (FP) PO SCH (09:48)
[2018-07-19] MEDS: CEFTRIAXONE 1 GM in DEXTROSE 5%-WATER - 50 ML IVPB SCH (09:48)
[2018-07-19] MEDS: methylPREDNISolone NA SUCC 40 MG/1 ML VIAL IVPB SCH ×2 (09:49→21:43)
[2018-07-19] MEDS: BUDESONIDE/FORMETEROL FUMARATE 80/4.5 mcg INHALER IH SCH ×2 (09:50→21:47)
[2018-07-19] MEDS: TIOTROPIUM BROMIDE 2.5 MCG (SPIRIVA) RESPIMAT INHALER IH SCH (09:50)
[2018-07-19] MEDS: HEPARIN NA (PORCINE) 5,000 UNITS/ML 1ML VIAL SQ SCH ×2 (09:51→21:41)
[2018-07-19] MEDS: AZITHROMYCIN IVPB 500 MG/250 ML BAG IVPB SCH (10:47)
[2018-07-19] MEDS ORDERED: INSULIN (NOVOLOG) ASPART 100 UNITS/ML 10ML VIAL ONE (11:39)
--- NOTE | 2018-07-19 11:39 | EKG ---
Test Reason : Blood Pressure : / mmHG Vent. Rate : 083 BPM Atrial Rate : 083 BPM P-R Int : 112 ms QRS Dur : 088 ms QT Int : 382 ms P-R-T Axes : 072 057 053 degrees QTc Int : 448 ms NORMAL SINUS RHYTHM NONSPECIFIC ST ABNORMALITY ABNORMAL ECG WHEN COMPARED WITH ECG OF 08-JUL-2018 16:28, NONSPECIFIC T WAVE ABNORMALITY HAS REPLACED INVERTED T WAVES IN LATERAL LEADS Confirmed by MISAEL MORRISON, SHASHI ([id number]) on 07/19/2018 11:38:29 AM Referred By: FARA AGUILAR DR Confirmed By:SHASHI DOUGLAS MD
--- NOTE | 2018-07-19 11:40 | PN ---
Progress Note (short form) - Note Progress Note: PULMONARY OOB TO CHAIR USING NEB MODEST SUBJECTIVE IMPROVEMENT VSS/afebrile Gen: NAD at rest Heart: RRR Lung: distant breath sounds Abd: soft, nontender Ext: no edema CHART REVIEWED A/P Acute COPD Exacerbation s/p RT session NSCLC - Adenocarcinoma mets to rib/liver LV Diastolic Dysfunction HTN Hypothyroidism Hyperlipidemia - continue medrol at current dose - inhaled bronchodilators - on empiric antibiotics - O2 to keep SpO2 >90% - rehab/PT - DVT prophylaxis - onco f/u R ANNA MORRISON
--- NOTE | 2018-07-19 12:16 | PN ---
Progress Note (short form) - Note Progress Note: Patient seen and examined Remains dyspneic , but feels breathing is somewhat improved Last Vital Signs Temp Pulse Resp BP Pulse Ox 98.2 F 72 20 135/64 98 07/19/18 06:00 07/19/18 06:00 07/19/18 06:00 07/19/18 06:00 07/17/18 21:00 HEENT: KEIRY, EOM Intact Cor: RSR, No murmurs, No gallops Lungsdiminished breath sounds bilaterally Abd: Soft, Normal bowel sounds, No organomegaly Ext:No significant edema Skin: No rashes, Integument intact CBC, BMP 07/18/18 06:30 07/18/18 06:30 Current Medications Generic Name Dose Route Start Last Admin Trade Name Freq PRN Reason Stop Dose Admin Acetaminophen 650 mg 07/08/18 19:43 07/16/18 15:41 Tylenol - PO 650 mg Q6H PRN Administration PAIN Albuterol Sulfate 1 amp 07/08/18 19:43 07/19/18 07:55 Ventolin 0.083% Nebulizer Soln - NEB 1 amp Q4H PRN Administration SHORT OF BREATH/WHEEZING Budesonide/Formoterol Fumarate 2 puff 07/10/18 22:00 07/19/18 09:50 Symbicort 80/4.5mcg - IH 2 puff BID JOHN Administration Furosemide 20 mg 07/11/18 10:00 07/19/18 09:46 Lasix - PO 20 mg DAILY JOHN Administration Gabapentin 100 mg 07/15/18 20:00 07/19/18 09:47 Neurontin - PO 100 mg DAILY [facility] Administration Guaifenesin 10 ml 07/08/18 19:43 07/18/18 03:00 Robitussin - PO 10 ml Q6H PRN Administration COUGH Heparin Sodium (Porcine) 5,000 unit 07/17/18 22:00 07/19/18 09:51 Heparin - SQ 5,000 unit BID [facility] Administration Ceftriaxone Sodium 1 gm/ 50 mls @ 100 mls/hr 07/09/18 10:30 07/19/18 09:48 Dextrose IVPB 100 mls/hr DAILY [facility] Administration Azithromycin 500 mg in 250 mls @ 250 mls/hr 07/09/18 10:30 07/19/18 10:47 Zithromax 500mg Ivpb (Pre-Docked) IVPB 250 mls/hr DAILY [facility] Administration Insulin Aspart 1 vial 07/08/18 22:00 07/19/18 11:58 Novolog Vial Sliding Scale - SQ 2 units ACHS JOHN Administration Protocol Methylprednisolone Sodium Succinate 30 mg 07/13/18 22:00 07/19/18 09:49 Solu-Medrol - IVPB 30 mg BID [facility] Administration Metoprolol Tartrate 25 mg 07/08/18 22:00 07/19/18 09:47 Lopressor - PO 25 mg BID [facility] Administration Pantoprazole Sodium 40 mg 07/11/18 23:00 07/19/18 09:47 Protonix - PO 40 mg DAILY [facility] Administration Ranitidine HCl 150 mg 07/09/18 10:00 07/19/18 09:48 Zantac - PO 150 mg DAILY [facility] Administration Rosuvastatin Calcium 20 mg 07/08/18 22:00 07/18/18 21:45 Crestor - PO 20 mg HS JOHN Administration Tiotropium [employer] 2 puff 07/09/18 10:00 07/19/18 09:50 Spiriva Respimat IH 2 puff DAILY [facility] Administration Impression: Adenoca of lung - likely liver mets and rib mets COPD Plan : discussed with patient and with Dr. scott liver biopsy if feasible port insertion RT to limited area PDL-1 > 90% immunotherapy after RT.
[2018-07-19 13:16] LABS: HBSAG SCREEN Negative (Negative); HEP A AB, IGM Negative (Negative); HEP B CORE AB, TOT Positive (Negative)
--- NOTE | 2018-07-19 15:51 | PN ---
GI Progress Note Subjective: GI NOte: CT again reveals a right liver lobe lesion but the study lacked IV contrast which may have helped exclude a hepatoma. Her AFP is 11. She has hepatitis B exposure and appears to have immunity but will test for viral replication as she may need chemotherapy in the future - Objective Vital Signs: Vital Signs Temperature 97.8 F 07/19/18 15:21 Pulse Rate 85 07/19/18 15:21 Respiratory Rate 21 H 07/19/18 15:21 Blood Pressure 141/63 07/19/18 15:21 O2 Sat by Pulse Oximetry (%) 97 07/19/18 09:00 Laboratory Tests 07/17/18 07/17/18 07/18/18 06:30 06:30 06:30 Plt Count 116 L Iron Saturation 22 Ferritin 105.3 Total Bilirubin AST ALT Alkaline Phosphatase Tumor Marker AFP 11.2 H DULCE Screen Pending [employer]UAL[employer] Intrp 4 Tiss Transglutamin IgG < 2 Tiss Transglutamin IgA < 2 Hep A IgM Ab Confirm Negative Hepatitis A Ab Total Positive H Hep Bs Antigen Negative Hep Bs Antibody Reactive Hep B Core Total Ab Positive H Hep C Ab Diagnostic <0.1 07/18/18 06:30 Plt Count Iron Saturation Ferritin Total Bilirubin 0.3 AST 125 H ALT 372 H Alkaline Phosphatase 66 Tumor Marker AFP DULCE Screen Smooth [employer] &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 NOt cear whether this is a metastasis or a primary hepatocellulatr carcinoma which is associated with hepatitis B. The hepatoma cancer risk persists even if the virus is no longer active. Code(s): R16.0 - HEPATOMEGALY, NOT ELSEWHERE CLASSIFIED (2) Abnormal liver enzymes Code(s): R74.8 - ABNORMAL LEVELS OF OTHER SERUM ENZYMES (3) Adenocarcinoma, lung Code(s): C34.90 - MALIGNANT NEOPLASM OF UNSP PART OF UNSP BRONCHUS OR LUNG (4) COPD (chronic obstructive pulmonary disease) Code(s): J44.9 - CHRONIC OBSTRUCTIVE PULMONARY DISEASE, UNSPECIFIED Qualifiers: COPD type: unspecified COPD Qualified Code(s): J44.9 - Chronic obstructive pulmonary disease, unspecified
[2018-07-19] MEDS ORDERED: ROSUVASTATIN CA 10 MG TABLET (FP) ONE (21:15)
[2018-07-19] MEDS: ROSUVASTATIN CA 20 MG TABLET (FP) PO SCH (21:42)
[2018-07-20] MEDS: INSULIN SLIDING SCALE (NOVOLOG) 1 VIAL SQ SCH ×4 (06:20→21:02)
--- NOTE | 2018-07-20 07:05 | PN ---
Progress Note, Physician Chief Complaint: OOB to chair still coughing and congested; chest tightness; generally weak - Current Medication List Current Medications: Active Medications Acetaminophen (Tylenol -) 650 mg PO Q6H PRN PRN Reason: PAIN Last Admin: 07/16/18 15:41 Dose: 650 mg Albuterol Sulfate (Ventolin 0.083% Nebulizer Soln -) 1 amp NEB Q4H PRN PRN Reason: SHORT OF BREATH/WHEEZING Last Admin: 07/19/18 07:55 Dose: 1 amp Budesonide/Formoterol Fumarate (Symbicort 80/4.5mcg -) 2 puff IH BID [facility] Last Admin: 07/19/18 21:47 Dose: 2 puff Furosemide (Lasix -) 20 mg PO DAILY [facility] Last Admin: 07/19/18 09:46 Dose: 20 mg Gabapentin (Neurontin -) 100 mg PO DAILY [facility] Last Admin: 07/19/18 09:47 Dose: 100 mg Guaifenesin (Robitussin -) 10 ml PO Q6H PRN PRN Reason: COUGH Last Admin: 07/18/18 03:00 Dose: 10 ml Heparin Sodium (Porcine) (Heparin -) 5,000 unit SQ BID [facility] Last Admin: 07/19/18 21:41 Dose: 5,000 unit Ceftriaxone Sodium 1 gm/ (Dextrose) 50 mls @ 100 mls/hr IVPB DAILY [facility] Last Admin: 07/19/18 09:48 Dose: 100 mls/hr Azithromycin (Zithromax 500mg Ivpb (Pre-Docked)) 500 mg in 250 mls @ 250 mls/ hr IVPB DAILY [facility] Last Admin: 07/19/18 10:47 Dose: 250 mls/hr Insulin Aspart (Novolog Vial Sliding Scale -) 1 vial SQ ACHS [facility]; Protocol Last Admin: 07/20/18 06:20 Dose: Not Given Methylprednisolone Sodium Succinate (Solu-Medrol -) 30 mg IVPB BID [facility] Last Admin: 07/19/18 21:43 Dose: 30 mg Metoprolol Tartrate (Lopressor -) 25 mg PO BID [facility] Last Admin: 07/19/18 21:42 Dose: 25 mg Pantoprazole Sodium (Protonix -) 40 mg PO DAILY [facility] Last Admin: 07/19/18 09:47 Dose: 40 mg Ranitidine HCl (Zantac -) 150 mg PO DAILY [facility] Last Admin: 07/19/18 09:48 Dose: 150 mg Rosuvastatin Calcium (Crestor -) 20 mg PO HS [facility] Last Admin: 07/19/18 21:42 Dose: 20 mg Tiotropium [place] (Spiriva Respimat) 2 puff IH DAILY [facility] Last Admin: 07/19/18 09:50 Dose: 2 puff - Objective Vital Signs: Vital Signs Temperature 98.3 F 07/19/18 22:00 Pulse Rate 76 07/19/18 22:00 Respiratory Rate 20 07/19/18 22:00 Blood Pressure 125/52 L 07/19/18 22:00 O2 Sat by Pulse Oximetry (%) 96 07/19/18 21:00 Constitutional: Yes: No Distress Eyes: Yes: Conjunctiva Clear HENT: Yes: Atraumatic Neck: Yes: Supple Cardiovascular: Yes: Regular Rate and Rhythm Respiratory: Yes: Rales, Rhonchi Gastrointestinal: Yes: Soft. No: Tenderness Genitourinary: No: Hematuria Musculoskeletal: No: Joint Stiffness, Joint Swelling Extremities: No: Cold, Cool, Cyanosis Edema: No Integumentary: No: Rash, Venous Stasis Changes Neurological: Yes: WNL, Alert, Oriented ...Motor Strength: WNL Psychiatric: Yes: WNL, Alert, Oriented. 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
[2018-07-20 07:20] LABS: BASO % 0.1 % (0-2.0); HEMATOCRIT 34.9 % (32.4-45.2); HEMOGLOBIN 11.3 GM/dL (10.7-15.3); LYMPH % 1.8 % (8-40); MCH 29.1 pg (25.7-33.7); MCHC 32.4 g/dl (32.0-36.0); MEAN CELL VOLUME 89.8 fl (80-96); MEAN PLT VOLUME 10.7 fl (7.5-11.1); MONO % 2.2 % (3.8-10.2); NEUT % 95.9 % (42.8-82.8); PLATELET COUNT 95 K/MM3 (134-434); RBC 3.89 M/mm3 (3.60-5.2)
[2018-07-20 07:41] LABS: ALBUMIN 2.7 g/dl (3.4-5.0); ALK PHOS 50 U/L (45-117); ANION GAP 7 MMOL/L (8-16); BILIRUBIN,TOTAL 0.2 mg/dL (0.2-1); BLOOD UREA NITROGEN 32 mg/dL (7-18); CALCIUM 8.6 mg/dL (8.5-10.1); CHLORIDE 100 mmol/L (98-107); CO2 32 mmol/L (21-32); CREATININE 0.6 mg/dL (0.55-1.3); GLUCOSE,RANDOM 136 mg/dL (74-106); POTASSIUM 4.6 mmol/L (3.5-5.1); SGOT/AST 43 U/L (15-37); SGPT/ALT 209 U/L (13-61); SODIUM 139 mmol/L (136-145)
[2018-07-20] MEDS ORDERED: DEXTROSE 5%-WATER - 50 ML IVPB ONE (08:55)
[2018-07-20] MEDS ORDERED: cefTRIAXone SODIUM 1 GM VIAL ONE (08:55)
[2018-07-20] MEDS: METOPROLOL TARTRATE 25 MG TABLET (FP) PO SCH ×2 (08:59→21:03)
[2018-07-20] MEDS: GABAPENTIN 100 MG CAPSULE (FP) PO SCH (08:59)
[2018-07-20] MEDS: RANITIDINE HCL 150 MG TABLET (FP) PO SCH (08:59)
[2018-07-20] MEDS: PANTOPRAZOLE 40 MG TABLET (FP) PO SCH (08:59)
[2018-07-20] MEDS: FUROSEMIDE 20 MG TABLET (FP) PO SCH (08:59)
[2018-07-20] MEDS: HEPARIN NA (PORCINE) 5,000 UNITS/ML 1ML VIAL SQ SCH ×2 (08:59→21:03)
[2018-07-20] MEDS ORDERED: PT OWN MED DRAWER 7, Y5N ONE (09:00)
[2018-07-20] MEDS: methylPREDNISolone NA SUCC 40 MG/1 ML VIAL IVPB SCH ×2 (09:00→21:03)
[2018-07-20] MEDS: CEFTRIAXONE 1 GM in DEXTROSE 5%-WATER - 50 ML IVPB SCH (09:00)
[2018-07-20] MEDS: BUDESONIDE/FORMETEROL FUMARATE 80/4.5 mcg INHALER IH SCH ×2 (09:14→21:02)
[2018-07-20] MEDS: TIOTROPIUM BROMIDE 2.5 MCG (SPIRIVA) RESPIMAT INHALER IH SCH (09:14)
[2018-07-20] MEDS: AZITHROMYCIN IVPB 500 MG/250 ML BAG IVPB SCH (10:15)
[2018-07-20 10:42] LABS: PLATELET ESTIMATE DECREASED
[2018-07-20] MEDS ORDERED: INSULIN (NOVOLOG) ASPART 100 UNITS/ML 10ML VIAL ONE (11:30)
--- NOTE | 2018-07-20 12:24 | PN ---
Progress Note (short form) - Note Progress Note: PULMONARY Generalized weakness. Still with some shortness of breath and chest congestion. Vital Signs Period Temp Pulse Resp BP Sys/Armenta Pulse Ox Last 24 Hr 97.3 F-98.3 F 71-85 20-71 125-141/52-70 96-97 Gen: NAD at rest Heart: RRR Lung: distant breath sounds Abd: soft, nontender Ext: no edema CBC, BMP 07/20/18 06:30 07/20/18 06:30 Active Medications Acetaminophen (Tylenol -) 650 mg PO Q6H PRN PRN Reason: PAIN Last Admin: 07/16/18 15:41 Dose: 650 mg Albuterol Sulfate (Ventolin 0.083% Nebulizer Soln -) 1 amp NEB Q4H PRN PRN Reason: SHORT OF BREATH/WHEEZING Last Admin: 07/19/18 07:55 Dose: 1 amp Budesonide/Formoterol Fumarate (Symbicort 80/4.5mcg -) 2 puff IH BID [facility] Last Admin: 07/20/18 09:14 Dose: 2 puff Furosemide (Lasix -) 20 mg PO DAILY [facility] Last Admin: 07/20/18 08:59 Dose: 20 mg Gabapentin (Neurontin -) 100 mg PO DAILY [facility] Last Admin: 07/20/18 08:59 Dose: 100 mg Guaifenesin (Robitussin -) 10 ml PO Q6H PRN PRN Reason: COUGH Last Admin: 07/18/18 03:00 Dose: 10 ml Heparin Sodium (Porcine) (Heparin -) 5,000 unit SQ BID [facility] Last Admin: 07/20/18 08:59 Dose: 5,000 unit Ceftriaxone Sodium 1 gm/ (Dextrose) 50 mls @ 100 mls/hr IVPB DAILY [facility] Last Admin: 07/20/18 09:00 Dose: 100 mls/hr Azithromycin (Zithromax 500mg Ivpb (Pre-Docked)) 500 mg in 250 mls @ 250 mls/ hr IVPB DAILY [facility] Last Admin: 07/20/18 10:15 Dose: 250 mls/hr Insulin Aspart (Novolog Vial Sliding Scale -) 1 vial SQ ACHS [facility]; Protocol Last Admin: 07/20/18 11:31 Dose: 6 units Methylprednisolone Sodium Succinate (Solu-Medrol -) 30 mg IVPB BID [facility] Last Admin: 07/20/18 09:00 Dose: 30 mg Metoprolol Tartrate (Lopressor -) 25 mg PO BID [facility] Last Admin: 07/20/18 08:59 Dose: 25 mg Pantoprazole Sodium (Protonix -) 40 mg PO DAILY [facility] Last Admin: 07/20/18 08:59 Dose: 40 mg Ranitidine HCl (Zantac -) 150 mg PO DAILY [facility] Last Admin: 07/20/18 08:59 Dose: 150 mg Rosuvastatin Calcium (Crestor -) 20 mg PO HS [facility] Last Admin: 07/19/18 21:42 Dose: 20 mg Tiotropium [place] (Spiriva Respimat) 2 puff IH DAILY [facility] Last Admin: 07/20/18 09:14 Dose: 2 puff A/P Acute COPD Exacerbation s/p RT session NSCLC - Adenocarcinoma LV Diastolic Dysfunction HTN Hypothyroidism Hyperlipidemia - continue medrol at current dose - inhaled bronchodilators - on empiric antibiotics - O2 to keep SpO2 >90% - for port placement and liver biopsy - rehab/PT - DVT prophylaxis
[2018-07-20] MEDS: ROSUVASTATIN CA 20 MG TABLET (FP) PO SCH (21:03)
[2018-07-21] MEDS: INSULIN SLIDING SCALE (NOVOLOG) 1 VIAL SQ SCH ×4 (06:11→21:39)
--- NOTE | 2018-07-21 06:41 | PN ---
Progress Note, Physician Chief Complaint: OOB to chair breathing a little better but she is anxious about tomorrow procedures, port placement and possibly liver biopsy - Current Medication List Current Medications: Active Medications Acetaminophen (Tylenol -) 650 mg PO Q6H PRN PRN Reason: PAIN Last Admin: 07/16/18 15:41 Dose: 650 mg Albuterol Sulfate (Ventolin 0.083% Nebulizer Soln -) 1 amp NEB Q4H PRN PRN Reason: SHORT OF BREATH/WHEEZING Last Admin: 07/19/18 07:55 Dose: 1 amp Budesonide/Formoterol Fumarate (Symbicort 80/4.5mcg -) 2 puff IH BID [facility] Last Admin: 07/20/18 21:02 Dose: 2 puff Furosemide (Lasix -) 20 mg PO DAILY [facility] Last Admin: 07/20/18 08:59 Dose: 20 mg Gabapentin (Neurontin -) 100 mg PO DAILY [facility] Last Admin: 07/20/18 08:59 Dose: 100 mg Guaifenesin (Robitussin -) 10 ml PO Q6H PRN PRN Reason: COUGH Last Admin: 07/18/18 03:00 Dose: 10 ml Heparin Sodium (Porcine) (Heparin -) 5,000 unit SQ BID [facility] Last Admin: 07/20/18 21:03 Dose: 5,000 unit Ceftriaxone Sodium 1 gm/ (Dextrose) 50 mls @ 100 mls/hr IVPB DAILY [facility] Last Admin: 07/20/18 09:00 Dose: 100 mls/hr Azithromycin (Zithromax 500mg Ivpb (Pre-Docked)) 500 mg in 250 mls @ 250 mls/ hr IVPB DAILY [facility] Last Admin: 07/20/18 10:15 Dose: 250 mls/hr Insulin Aspart (Novolog Vial Sliding Scale -) 1 vial SQ ACHS [facility]; Protocol Last Admin: 07/21/18 06:11 Dose: 2 units Methylprednisolone Sodium Succinate (Solu-Medrol -) 30 mg IVPB BID [facility] Last Admin: 07/20/18 21:03 Dose: 30 mg Metoprolol Tartrate (Lopressor -) 25 mg PO BID [facility] Last Admin: 07/20/18 21:03 Dose: 25 mg Pantoprazole Sodium (Protonix -) 40 mg PO DAILY [facility] Last Admin: 07/20/18 08:59 Dose: 40 mg Ranitidine HCl (Zantac -) 150 mg PO DAILY [facility] Last Admin: 07/20/18 08:59 Dose: 150 mg Rosuvastatin Calcium (Crestor -) 20 mg PO HS [facility] Last Admin: 07/20/18 21:03 Dose: 20 mg Tiotropium [place] (Spiriva Respimat) 2 puff IH DAILY [facility] Last Admin: 07/20/18 09:14 Dose: 2 puff - Objective Vital Signs: Vital Signs Temperature 97.7 F 07/20/18 20:00 Pulse Rate 76 07/20/18 20:00 Respiratory Rate 18 07/20/18 20:00 Blood Pressure 121/50 L 07/20/18 20:00 O2 Sat by Pulse Oximetry (%) 96 07/20/18 20:00 Constitutional: Yes: No Distress, Anxious Eyes: Yes: Conjunctiva Clear HENT: Yes: Atraumatic Neck: Yes: Supple Cardiovascular: Yes: Regular Rate and Rhythm Respiratory: Yes: CTA Bilaterally Gastrointestinal: Yes: Soft. No: Tenderness Genitourinary: No: CVA Tenderness - Left, CVA Tenderness - Right Musculoskeletal: No: Joint Stiffness, Joint Swelling Extremities: No: Cold, Cool Edema: No Integumentary: No: Rash, Venous Stasis Changes Neurological: Yes: WNL, Alert, Oriented ...Motor Strength: WNL Psychiatric: Yes: WNL, Alert, Oriented. No: Agitated, Suicidal Ideation Labs: CBC, BMP 07/20/18 06:30 07/20/18 06:30 INR, PTT INR 1.01 (0.83-1.09) 07/08/18 16:43 - ....Imaging Other: Report Reviewed Assessment/Plan The patient is an 82 year old female with a PMH of COPD (on 2L), Stage 3a NSCC ( currently on radiation), CAD s/p [place] (s/p cardiac stent x3), HTN, HLD \admitted with acute onset of shortness of breath, acute on chronic COPD exac and bronchitis iv steroids, nebs, O2 and iv antibiotics PULM, Cardiology f/u pain meds prn; tylenol; neurontin for RUE pain; percocet prn for CP R sided hematuria h/o renal stones f/u; high LFT; liver mass - IR liver biopsy ONC f/u, rad tx f/u - port placement on sunday, d/w cardio and pulm no absolute CI for it, pt should have local anesthesia and minimal sedation f/u labs dc sq heparin prognosis guarded d/w pt and staff
[2018-07-21] MEDS ORDERED: PT OWN MED DRAWER 7, Y5N ONE (07:07)
[2018-07-21] MEDS ORDERED: DEXTROSE 5%-WATER - 50 ML IVPB ONE (09:33)
[2018-07-21] MEDS ORDERED: cefTRIAXone SODIUM 1 GM VIAL ONE (09:33)
[2018-07-21] MEDS: HEPARIN NA (PORCINE) 5,000 UNITS/ML 1ML VIAL SQ SCH (09:42)
[2018-07-21] MEDS: methylPREDNISolone NA SUCC 40 MG/1 ML VIAL IVPB SCH ×2 (09:43→21:41)
[2018-07-21] MEDS: AZITHROMYCIN IVPB 500 MG/250 ML BAG IVPB SCH (09:49)
[2018-07-21] MEDS: METOPROLOL TARTRATE 25 MG TABLET (FP) PO SCH ×2 (09:49→21:41)
[2018-07-21] MEDS: PANTOPRAZOLE 40 MG TABLET (FP) PO SCH (09:49)
[2018-07-21] MEDS: RANITIDINE HCL 150 MG TABLET (FP) PO SCH (09:49)
[2018-07-21] MEDS: FUROSEMIDE 20 MG TABLET (FP) PO SCH (09:49)
[2018-07-21] MEDS: CEFTRIAXONE 1 GM in DEXTROSE 5%-WATER - 50 ML IVPB SCH (09:49)
[2018-07-21] MEDS: GABAPENTIN 100 MG CAPSULE (FP) PO SCH (09:49)
[2018-07-21] MEDS: BUDESONIDE/FORMETEROL FUMARATE 80/4.5 mcg INHALER IH SCH ×2 (09:50→21:40)
[2018-07-21] MEDS: TIOTROPIUM BROMIDE 2.5 MCG (SPIRIVA) RESPIMAT INHALER IH SCH (09:50)
[2018-07-21] MEDS: ALBUTEROL SO4 0.083% IH SOL 2.5 MG/3 ML VIAL.NEB. NEB PRN (11:20)
--- NOTE | 2018-07-21 11:24 | PN ---
Progress Note (short form) - Note Progress Note: PULMONARY Feels better today. Still with some shortness of breath and chest congestion but slowly improving. Vital Signs Period Temp Pulse Resp BP Sys/Armenta Pulse Ox Last 24 Hr 97.7 F-98.2 F 76-82 18-18 121-150/50-66 96 Gen: NAD at rest Heart: RRR Lung: distant breath sounds Abd: soft, nontender Ext: no edema CBC, BMP 07/20/18 06:30 07/20/18 06:30 Active Medications Acetaminophen (Tylenol -) 650 mg PO Q6H PRN PRN Reason: PAIN Last Admin: 07/16/18 15:41 Dose: 650 mg Albuterol Sulfate (Ventolin 0.083% Nebulizer Soln -) 1 amp NEB Q4H PRN PRN Reason: SHORT OF BREATH/WHEEZING Last Admin: 07/21/18 11:20 Dose: 1 amp Budesonide/Formoterol Fumarate (Symbicort 80/4.5mcg -) 2 puff IH BID [facility] Last Admin: 07/21/18 09:50 Dose: 2 puff Furosemide (Lasix -) 20 mg PO DAILY [facility] Last Admin: 07/21/18 09:49 Dose: 20 mg Gabapentin (Neurontin -) 100 mg PO DAILY [facility] Last Admin: 07/21/18 09:49 Dose: 100 mg Guaifenesin (Robitussin -) 10 ml PO Q6H PRN PRN Reason: COUGH Last Admin: 07/18/18 03:00 Dose: 10 ml Heparin Sodium (Porcine) (Heparin -) 5,000 unit SQ BID [facility] Last Admin: 07/21/18 09:42 Dose: 5,000 unit Ceftriaxone Sodium 1 gm/ (Dextrose) 50 mls @ 100 mls/hr IVPB DAILY [facility] Last Admin: 07/21/18 09:49 Dose: 100 mls/hr Azithromycin (Zithromax 500mg Ivpb (Pre-Docked)) 500 mg in 250 mls @ 250 mls/ hr IVPB DAILY [facility] Last Admin: 07/21/18 09:49 Dose: 250 mls/hr Insulin Aspart (Novolog Vial Sliding Scale -) 1 vial SQ ACHS [facility]; Protocol Last Admin: 07/21/18 06:11 Dose: 2 units Methylprednisolone Sodium Succinate (Solu-Medrol -) 30 mg IVPB BID [facility] Last Admin: 07/21/18 09:43 Dose: 30 mg Metoprolol Tartrate (Lopressor -) 25 mg PO BID [facility] Last Admin: 07/21/18 09:49 Dose: 25 mg Pantoprazole Sodium (Protonix -) 40 mg PO DAILY [facility] Last Admin: 07/21/18 09:49 Dose: 40 mg Ranitidine HCl (Zantac -) 150 mg PO DAILY [facility] Last Admin: 07/21/18 09:49 Dose: 150 mg Rosuvastatin Calcium (Crestor -) 20 mg PO HS [facility] Last Admin: 07/20/18 21:03 Dose: 20 mg Tiotropium [place] (Spiriva Respimat) 2 puff IH DAILY [facility] Last Admin: 07/21/18 09:50 Dose: 2 puff A/P Acute COPD Exacerbation s/p RT session NSCLC - Adenocarcinoma LV Diastolic Dysfunction HTN Hypothyroidism Hyperlipidemia - continue medrol at current dose - inhaled bronchodilators - on empiric antibiotics - O2 to keep SpO2 >90% - for port placement and liver biopsy - rehab/PT - DVT prophylaxis
--- NOTE | 2018-07-21 18:33 | PN ---
Progress Note, Physician - Current Medication List Current Medications: Active Medications Acetaminophen (Tylenol -) 650 mg PO Q6H PRN PRN Reason: PAIN Last Admin: 07/16/18 15:41 Dose: 650 mg Albuterol Sulfate (Ventolin 0.083% Nebulizer Soln -) 1 amp NEB Q4H PRN PRN Reason: SHORT OF BREATH/WHEEZING Last Admin: 07/21/18 11:20 Dose: 1 amp Budesonide/Formoterol Fumarate (Symbicort 80/4.5mcg -) 2 puff IH BID [facility] Last Admin: 07/21/18 09:50 Dose: 2 puff Furosemide (Lasix -) 20 mg PO DAILY [facility] Last Admin: 07/21/18 09:49 Dose: 20 mg Gabapentin (Neurontin -) 100 mg PO DAILY [facility] Last Admin: 07/21/18 09:49 Dose: 100 mg Guaifenesin (Robitussin -) 10 ml PO Q6H PRN PRN Reason: COUGH Last Admin: 07/18/18 03:00 Dose: 10 ml Heparin Sodium (Porcine) (Heparin -) 5,000 unit SQ BID [facility] Last Admin: 07/21/18 09:42 Dose: 5,000 unit Ceftriaxone Sodium 1 gm/ (Dextrose) 50 mls @ 100 mls/hr IVPB DAILY [facility] Last Admin: 07/21/18 09:49 Dose: 100 mls/hr Azithromycin (Zithromax 500mg Ivpb (Pre-Docked)) 500 mg in 250 mls @ 250 mls/ hr IVPB DAILY [facility] Last Admin: 07/21/18 09:49 Dose: 250 mls/hr Insulin Aspart (Novolog Vial Sliding Scale -) 1 vial SQ ACHS [facility]; Protocol Last Admin: 07/21/18 17:10 Dose: 2 units Methylprednisolone Sodium Succinate (Solu-Medrol -) 30 mg IVPB BID [facility] Last Admin: 07/21/18 09:43 Dose: 30 mg Metoprolol Tartrate (Lopressor -) 25 mg PO BID [facility] Last Admin: 07/21/18 09:49 Dose: 25 mg Pantoprazole Sodium (Protonix -) 40 mg PO DAILY [facility] Last Admin: 07/21/18 09:49 Dose: 40 mg Ranitidine HCl (Zantac -) 150 mg PO DAILY [facility] Last Admin: 07/21/18 09:49 Dose: 150 mg Rosuvastatin Calcium (Crestor -) 20 mg PO HS [facility] Last Admin: 07/20/18 21:03 Dose: 20 mg Tiotropium [place] (Spiriva Respimat) 2 puff IH DAILY [facility] Last Admin: 07/21/18 09:50 Dose: 2 puff - Objective Vital Signs: Vital Signs Temperature 98.1 F 07/21/18 17:26 Pulse Rate 77 07/21/18 17:26 Respiratory Rate 20 07/21/18 17:26 Blood Pressure 140/59 L 07/21/18 17:26 O2 Sat by Pulse Oximetry (%) 96 07/21/18 09:00 Labs: CBC, BMP 07/20/18 06:30 07/20/18 06:30 INR, PTT INR 1.01 (0.83-1.09) 07/08/18 16:43 Problem List - Problems (1) Elevated troponin I level Code(s): R74.8 - ABNORMAL LEVELS OF OTHER SERUM ENZYMES (2) Adenocarcinoma, lung Code(s): C34.90 - MALIGNANT NEOPLASM OF UNSP PART OF UNSP BRONCHUS OR LUNG (3) Shortness of breath Code(s): R06.02 - SHORTNESS OF BREATH (4) HTN (hypertension) Code(s): I10 - ESSENTIAL (PRIMARY) HYPERTENSION (5) Hyperlipidemia Code(s): E78.5 - HYPERLIPIDEMIA, UNSPECIFIED (6) Sepsis Code(s): A41.9 - SEPSIS, UNSPECIFIED ORGANISM (7) Acute on chronic diastolic CHF (congestive heart failure) Code(s): I50.33 - ACUTE ON CHRONIC DIASTOLIC (CONGESTIVE) HEART FAILURE (8) Thrombocytopenia Code(s): D69.6 - THROMBOCYTOPENIA, UNSPECIFIED
--- NOTE | 2018-07-21 18:33 | PN ---
Progress Note, Physician - Current Medication List Current Medications: Active Medications Acetaminophen (Tylenol -) 650 mg PO Q6H PRN PRN Reason: PAIN Last Admin: 07/16/18 15:41 Dose: 650 mg Albuterol Sulfate (Ventolin 0.083% Nebulizer Soln -) 1 amp NEB Q4H PRN PRN Reason: SHORT OF BREATH/WHEEZING Last Admin: 07/21/18 11:20 Dose: 1 amp Budesonide/Formoterol Fumarate (Symbicort 80/4.5mcg -) 2 puff IH BID [facility] Last Admin: 07/21/18 09:50 Dose: 2 puff Furosemide (Lasix -) 20 mg PO DAILY [facility] Last Admin: 07/21/18 09:49 Dose: 20 mg Gabapentin (Neurontin -) 100 mg PO DAILY [facility] Last Admin: 07/21/18 09:49 Dose: 100 mg Guaifenesin (Robitussin -) 10 ml PO Q6H PRN PRN Reason: COUGH Last Admin: 07/18/18 03:00 Dose: 10 ml Heparin Sodium (Porcine) (Heparin -) 5,000 unit SQ BID [facility] Last Admin: 07/21/18 09:42 Dose: 5,000 unit Ceftriaxone Sodium 1 gm/ (Dextrose) 50 mls @ 100 mls/hr IVPB DAILY [facility] Last Admin: 07/21/18 09:49 Dose: 100 mls/hr Azithromycin (Zithromax 500mg Ivpb (Pre-Docked)) 500 mg in 250 mls @ 250 mls/ hr IVPB DAILY [facility] Last Admin: 07/21/18 09:49 Dose: 250 mls/hr Insulin Aspart (Novolog Vial Sliding Scale -) 1 vial SQ ACHS [facility]; Protocol Last Admin: 07/21/18 17:10 Dose: 2 units Methylprednisolone Sodium Succinate (Solu-Medrol -) 30 mg IVPB BID [facility] Last Admin: 07/21/18 09:43 Dose: 30 mg Metoprolol Tartrate (Lopressor -) 25 mg PO BID [facility] Last Admin: 07/21/18 09:49 Dose: 25 mg Pantoprazole Sodium (Protonix -) 40 mg PO DAILY [facility] Last Admin: 07/21/18 09:49 Dose: 40 mg Ranitidine HCl (Zantac -) 150 mg PO DAILY [facility] Last Admin: 07/21/18 09:49 Dose: 150 mg Rosuvastatin Calcium (Crestor -) 20 mg PO HS [facility] Last Admin: 07/20/18 21:03 Dose: 20 mg Tiotropium [place] (Spiriva Respimat) 2 puff IH DAILY [facility] Last Admin: 07/21/18 09:50 Dose: 2 puff - Objective Vital Signs: Vital Signs Temperature 98.1 F 07/21/18 17:26 Pulse Rate 77 07/21/18 17:26 Respiratory Rate 20 07/21/18 17:26 Blood Pressure 140/59 L 07/21/18 17:26 O2 Sat by Pulse Oximetry (%) 96 07/21/18 09:00 Labs: CBC, BMP 07/20/18 06:30 07/20/18 06:30 INR, PTT INR 1.01 (0.83-1.09) 07/08/18 16:43 Problem List - Problems (1) Elevated troponin I level Code(s): R74.8 - ABNORMAL LEVELS OF OTHER SERUM ENZYMES (2) Adenocarcinoma, lung Code(s): C34.90 - MALIGNANT NEOPLASM OF UNSP PART OF UNSP BRONCHUS OR LUNG (3) Shortness of breath Code(s): R06.02 - SHORTNESS OF BREATH (4) HTN (hypertension) Code(s): I10 - ESSENTIAL (PRIMARY) HYPERTENSION (5) Hyperlipidemia Code(s): E78.5 - HYPERLIPIDEMIA, UNSPECIFIED (6) Sepsis Code(s): A41.9 - SEPSIS, UNSPECIFIED ORGANISM (7) Acute on chronic diastolic CHF (congestive heart failure) Code(s): I50.33 - ACUTE ON CHRONIC DIASTOLIC (CONGESTIVE) HEART FAILURE (8) Thrombocytopenia Code(s): D69.6 - THROMBOCYTOPENIA, UNSPECIFIED
--- NOTE | 2018-07-21 18:34 | PN ---
Progress Note, Physician Chief Complaint: Pt A&Ox3; OOB in chair; no chest pain except when she coughs: this leads to right-sided chest pain. History of Present Illness: The patient is an 82 year old white female with a PMH of COPD (on 2L), Stage 3a NSCC lung cancer (currently on radiation), CAD s/p [place] (s/p cardiac stent x3), HTN, HLD was BIBEMS for acute onset of shortness of breath. Patient was completing her first radiation treatment today when she suddenly became short of breath. Denies chest pain, lightheadedness, nausea, diaphoresis. Grandson @ bedside assists in history, notes patient has been taking her Albuterol inhaler multiple times daily. Recent medication addition of Symbicort to her daily regimen. History limited as patient tachycardic, tachypneic @ presentation. NKDA Surgical: Cardiac Stent x3, lung biopsy PMD: Dr. Mary Beth Stein Cardiology: Dr. Bah Pulmonology: Dr. Kern/Dr. Velazquez - Current Medication List Current Medications: Active Medications Acetaminophen (Tylenol -) 650 mg PO Q6H PRN PRN Reason: PAIN Last Admin: 07/16/18 15:41 Dose: 650 mg Albuterol Sulfate (Ventolin 0.083% Nebulizer Soln -) 1 amp NEB Q4H PRN PRN Reason: SHORT OF BREATH/WHEEZING Last Admin: 07/21/18 11:20 Dose: 1 amp Budesonide/Formoterol Fumarate (Symbicort 80/4.5mcg -) 2 puff IH BID [facility] Last Admin: 07/21/18 09:50 Dose: 2 puff Furosemide (Lasix -) 20 mg PO DAILY [facility] Last Admin: 07/21/18 09:49 Dose: 20 mg Gabapentin (Neurontin -) 100 mg PO DAILY [facility] Last Admin: 07/21/18 09:49 Dose: 100 mg Guaifenesin (Robitussin -) 10 ml PO Q6H PRN PRN Reason: COUGH Last Admin: 07/18/18 03:00 Dose: 10 ml Heparin Sodium (Porcine) (Heparin -) 5,000 unit SQ BID [facility] Last Admin: 07/21/18 09:42 Dose: 5,000 unit Ceftriaxone Sodium 1 gm/ (Dextrose) 50 mls @ 100 mls/hr IVPB DAILY [facility] Last Admin: 07/21/18 09:49 Dose: 100 mls/hr Azithromycin (Zithromax 500mg Ivpb (Pre-Docked)) 500 mg in 250 mls @ 250 mls/ hr IVPB DAILY [facility] Last Admin: 07/21/18 09:49 Dose: 250 mls/hr Insulin Aspart (Novolog Vial Sliding Scale -) 1 vial SQ [facility]; Protocol Last Admin: 07/21/18 17:10 Dose: 2 units Methylprednisolone Sodium Succinate (Solu-Medrol -) 30 mg IVPB BID [facility] Last Admin: 07/21/18 09:43 Dose: 30 mg Metoprolol Tartrate (Lopressor -) 25 mg PO BID [facility] Last Admin: 07/21/18 09:49 Dose: 25 mg Pantoprazole Sodium (Protonix -) 40 mg PO DAILY [facility] Last Admin: 07/21/18 09:49 Dose: 40 mg Ranitidine HCl (Zantac -) 150 mg PO DAILY [facility] Last Admin: 07/21/18 09:49 Dose: 150 mg Rosuvastatin Calcium (Crestor -) 20 mg PO HS [facility] Last Admin: 07/20/18 21:03 Dose: 20 mg Tiotropium [place] (Spiriva Respimat) 2 puff IH DAILY [facility] Last Admin: 07/21/18 09:50 Dose: 2 puff - Objective Vital Signs: Vital Signs Temperature 98.1 F 07/21/18 17:26 Pulse Rate 77 07/21/18 17:26 Respiratory Rate 20 07/21/18 17:26 Blood Pressure 140/59 L 07/21/18 17:26 O2 Sat by Pulse Oximetry (%) 96 07/21/18 09:00 Constitutional: Yes: Calm Eyes: Yes: WNL HENT: Yes: WNL Neck: Yes: WNL Cardiovascular: Yes: Regular Rate and Rhythm Respiratory: Yes: Diminished Gastrointestinal: Yes: Soft ...Rectal Exam: Yes: Deferred Genitourinary: No: Anuria Breast(s): Yes: WNL Musculoskeletal: Yes: Muscle Weakness Extremities: Yes: Cool Edema: No Peripheral Pulses WNL: Yes Integumentary: Yes: WNL Neurological: Yes: Alert, Oriented, Weakness Psychiatric: Yes: Other Labs: CBC, BMP 07/20/18 06:30 07/20/18 06:30 INR, PTT INR 1.01 (0.83-1.09) 07/08/18 16:43 Abnormal Lab Results 07/23/18 07/23/18 08:05 08:05 WBC 18.0 H RDW 17.8 H Plt Count 107 L Absolute Neuts (auto) 17.5 H Neutrophils % 97.2 H Neutrophils % (Manual) 93.0 H Lymphocytes % 0.8 L Lymphocytes % (Manual) 2.0 L D Monocytes % 1.6 L Monocytes % (Manual) 0 L Eosinophils % (Manual) 5.0 H D Carbon Dioxide 35 H Anion Gap 7 L BUN 47 H Random Glucose 124 H ALT 163 H Total Protein 5.8 L Albumin 3.2 L Problem List - Problems (1) Elevated troponin I level Assessment/Plan: 0.02-->0.21-->0.19; normal CK EKG: sinus tachycardia; nonspecific STT changes; HR has since improved (for repeat EKG). Pt likely has demand ischemia from exacerbation of COPD, diastolic CHF, CA, tachycardia. Given pt's advanced lung CA, would recommend conservative management of cardiac condition (she is on metoprolol, statin, ASA). Code(s): R74.8 - ABNORMAL LEVELS OF OTHER SERUM ENZYMES (2) Adenocarcinoma, lung Assessment/Plan: advanced COPD and lung CA. CT chest: Rt lesion with local destruction of ribs; left stable lesion; bilateral pleural effusion. F/u with oncologist, manager intensive care. Abdomnal/pelvic CT: small pleural effusions. Diverticulosis and gallstones (no acute processes). Awaits liver biopsy. Code(s): C34.90 - MALIGNANT NEOPLASM OF UNSP PART OF UNSP BRONCHUS OR LUNG (3) Shortness of breath Assessment/Plan: Lung CA; COPD; diastolic CHF. CT chest results noted. Code(s): R06.02 - SHORTNESS OF BREATH (4) HTN (hypertension) Assessment/Plan: On metoprolol and furosemide. Code(s): I10 - ESSENTIAL (PRIMARY) HYPERTENSION (5) Hyperlipidemia Assessment/Plan: on statin Code(s): E78.5 - HYPERLIPIDEMIA, UNSPECIFIED (6) Acute on chronic diastolic CHF (congestive heart failure) Assessment/Plan: On metoprolol and Furosemide f/u BUn/Cr, electrolytes, daily weight, Is and Os. Code(s): I50.33 - ACUTE ON CHRONIC DIASTOLIC (CONGESTIVE) HEART FAILURE (7) Thrombocytopenia Assessment/Plan: Developed during this admission. Would stop ASA; f/u etiology. Awaits liver biopsy. Code(s): D69.6 - THROMBOCYTOPENIA, UNSPECIFIED
[2018-07-21] MEDS ORDERED: ROSUVASTATIN CA 10 MG TABLET (FP) ONE (21:15)
[2018-07-21] MEDS: ROSUVASTATIN CA 20 MG TABLET (FP) PO SCH (21:41)
[2018-07-21] MEDS: ACETAMINOPHEN 325 MG TABLET (FP) PO PRN (21:42)
--- NOTE | 2018-07-22 06:28 | PN ---
Progress Note, Physician Chief Complaint: no new c/o anxious about procedures - Current Medication List Current Medications: Active Medications Acetaminophen (Tylenol -) 650 mg PO Q6H PRN PRN Reason: PAIN Last Admin: 07/21/18 21:42 Dose: 650 mg Albuterol Sulfate (Ventolin 0.083% Nebulizer Soln -) 1 amp NEB Q4H PRN PRN Reason: SHORT OF BREATH/WHEEZING Last Admin: 07/21/18 11:20 Dose: 1 amp Budesonide/Formoterol Fumarate (Symbicort 80/4.5mcg -) 2 puff IH BID [facility] Last Admin: 07/21/18 21:40 Dose: 2 puff Furosemide (Lasix -) 20 mg PO DAILY [facility] Last Admin: 07/21/18 09:49 Dose: 20 mg Gabapentin (Neurontin -) 100 mg PO DAILY [facility] Last Admin: 07/21/18 09:49 Dose: 100 mg Guaifenesin (Robitussin -) 10 ml PO Q6H PRN PRN Reason: COUGH Last Admin: 07/18/18 03:00 Dose: 10 ml Ceftriaxone Sodium 1 gm/ (Dextrose) 50 mls @ 100 mls/hr IVPB DAILY [facility] Last Admin: 07/21/18 09:49 Dose: 100 mls/hr Azithromycin (Zithromax 500mg Ivpb (Pre-Docked)) 500 mg in 250 mls @ 250 mls/ hr IVPB DAILY [facility] Last Admin: 07/21/18 09:49 Dose: 250 mls/hr Insulin Aspart (Novolog Vial Sliding Scale -) 1 vial SQ ACHS [facility]; Protocol Last Admin: 07/21/18 21:39 Dose: Not Given Methylprednisolone Sodium Succinate (Solu-Medrol -) 30 mg IVPB BID [facility] Last Admin: 07/21/18 21:41 Dose: 30 mg Metoprolol Tartrate (Lopressor -) 25 mg PO BID [facility] Last Admin: 07/21/18 21:41 Dose: 25 mg Pantoprazole Sodium (Protonix -) 40 mg PO DAILY [facility] Last Admin: 07/21/18 09:49 Dose: 40 mg Ranitidine HCl (Zantac -) 150 mg PO DAILY [facility] Last Admin: 07/21/18 09:49 Dose: 150 mg Rosuvastatin Calcium (Crestor -) 20 mg PO HS [facility] Last Admin: 07/21/18 21:41 Dose: 20 mg Tiotropium [place] (Spiriva Respimat) 2 puff IH DAILY [facility] Last Admin: 07/21/18 09:50 Dose: 2 puff - Objective Vital Signs: Vital Signs Temperature 97.9 F 07/21/18 19:56 Pulse Rate 76 07/21/18 19:56 Respiratory Rate 20 07/21/18 20:00 Blood Pressure 146/77 07/21/18 19:56 O2 Sat by Pulse Oximetry (%) 96 07/21/18 20:00 Constitutional: Yes: No Distress, Calm Eyes: Yes: Conjunctiva Clear HENT: Yes: Atraumatic Neck: Yes: Supple Cardiovascular: Yes: Regular Rate and Rhythm Respiratory: Yes: CTA Bilaterally Gastrointestinal: Yes: Soft Genitourinary: No: CVA Tenderness - Left, CVA Tenderness - Right Musculoskeletal: No: Joint Stiffness, Joint Swelling Extremities: No: Cold, Cool, Cyanosis Edema: No Integumentary: No: Rash, Venous Stasis Changes Neurological: Yes: WNL, Alert, Oriented ...Motor Strength: WNL Psychiatric: Yes: WNL, Alert, Oriented. No: Agitated, Suicidal Ideation Labs: CBC, BMP 07/20/18 06:30 07/20/18 06:30 INR, PTT INR 1.01 (0.83-1.09) 07/08/18 16:43 - ....Imaging Other: Report Reviewed Assessment/Plan The patient is an 82 year old female with a PMH of COPD (on 2L), Stage 3a NSCC ( currently on radiation), CAD s/p [place] (s/p cardiac stent x3), HTN, HLD \admitted with acute onset of shortness of breath, acute on chronic COPD exac and bronchitis iv steroids, nebs, O2 and iv antibiotics PULM, Cardiology f/u high LFT; liver mass - IR liver biopsy today ONC f/u, rad tx f/u for port placement in am, d/w cardio and pulm no absolute CI for it, pt should have local anesthesia and minimal sedation f/u labs d/w pt and staff
[2018-07-22] MEDS: INSULIN SLIDING SCALE (NOVOLOG) 1 VIAL SQ SCH ×4 (06:35→23:36)
[2018-07-22] MEDS: ALBUTEROL SO4 0.083% IH SOL 2.5 MG/3 ML VIAL.NEB. NEB PRN ×4 (06:45→20:16)
[2018-07-22 07:16] LABS: BASO % 0.2 % (0-2.0); HEMATOCRIT 37.5 % (32.4-45.2); HEMOGLOBIN 12.2 GM/dL (10.7-15.3); LYMPH % 1.7 % (8-40); MCH 29.4 pg (25.7-33.7); MCHC 32.4 g/dl (32.0-36.0); MEAN CELL VOLUME 90.6 fl (80-96); MEAN PLT VOLUME 10.3 fl (7.5-11.1); MONO % 1.9 % (3.8-10.2); NEUT % 96.2 % (42.8-82.8); PLATELET COUNT 108 K/MM3 (134-434); RBC 4.14 M/mm3 (3.60-5.2); WHITE BLOOD COUNT 15.6 K/mm3 (4.0-10.0)
[2018-07-22 07:46] LABS: ALBUMIN 3.1 g/dl (3.4-5.0); ALK PHOS 58 U/L (45-117); ANION GAP 5 MMOL/L (8-16); BILIRUBIN,TOTAL 0.5 mg/dL (0.2-1); BLOOD UREA NITROGEN 38 mg/dL (7-18); CALCIUM 8.6 mg/dL (8.5-10.1); CHLORIDE 99 mmol/L (98-107); CO2 35 mmol/L (21-32); CREATININE 0.8 mg/dL (0.55-1.3); GLUCOSE,RANDOM 115 mg/dL (74-106); POTASSIUM 4.7 mmol/L (3.5-5.1); SGOT/AST 32 U/L (15-37); SGPT/ALT 185 U/L (13-61); SODIUM 139 mmol/L (136-145); TOT PROT 5.8 g/dl (6.4-8.2)
--- NOTE | 2018-07-22 09:01 | PN ---
Progress Note (short form) - Note Progress Note: Feels OK today. Still with some GAY and and chest congestion, but overall better. No acute events overnight. Intake & Output 07/19/18 07/20/18 07/21/18 07/22/18 23:59 23:59 23:59 23:59 Intake Total 1020 1090 1620 0 Balance 1020 1090 1620 0 Weight 89 lb 8 oz 89 lb 12.8 oz 88 lb 14.4 oz Last Vital Signs Temp Pulse Resp BP Pulse Ox 97.4 F L 72 20 131/66 96 07/22/18 06:00 07/22/18 06:00 07/22/18 06:00 07/22/18 06:00 07/21/18 20:00 Active Medications Acetaminophen (Tylenol -) 650 mg PO Q6H PRN PRN Reason: PAIN Last Admin: 07/21/18 21:42 Dose: 650 mg Albuterol Sulfate (Ventolin 0.083% Nebulizer Soln -) 1 amp NEB Q4H PRN PRN Reason: SHORT OF BREATH/WHEEZING Last Admin: 07/22/18 06:45 Dose: 1 amp Budesonide/Formoterol Fumarate (Symbicort 80/4.5mcg -) 2 puff IH BID [facility] Last Admin: 07/21/18 21:40 Dose: 2 puff Furosemide (Lasix -) 20 mg PO DAILY [facility] Last Admin: 07/21/18 09:49 Dose: 20 mg Gabapentin (Neurontin -) 100 mg PO DAILY [facility] Last Admin: 07/21/18 09:49 Dose: 100 mg Guaifenesin (Robitussin -) 10 ml PO Q6H PRN PRN Reason: COUGH Last Admin: 07/18/18 03:00 Dose: 10 ml Ceftriaxone Sodium 1 gm/ (Dextrose) 50 mls @ 100 mls/hr IVPB DAILY [facility] Last Admin: 07/21/18 09:49 Dose: 100 mls/hr Azithromycin (Zithromax 500mg Ivpb (Pre-Docked)) 500 mg in 250 mls @ 250 mls/ hr IVPB DAILY [facility] Last Admin: 07/21/18 09:49 Dose: 250 mls/hr Insulin Aspart (Novolog Vial Sliding Scale -) 1 vial SQ ACHS [facility]; Protocol Last Admin: 07/22/18 06:35 Dose: Not Given Methylprednisolone Sodium Succinate (Solu-Medrol -) 30 mg IVPB BID [facility] Last Admin: 07/21/18 21:41 Dose: 30 mg Metoprolol Tartrate (Lopressor -) 25 mg PO BID [facility] Last Admin: 07/21/18 21:41 Dose: 25 mg Pantoprazole Sodium (Protonix -) 40 mg PO DAILY [facility] Last Admin: 07/21/18 09:49 Dose: 40 mg Ranitidine HCl (Zantac -) 150 mg PO DAILY [facility] Last Admin: 07/21/18 09:49 Dose: 150 mg Rosuvastatin Calcium (Crestor -) 20 mg PO HS [facility] Last Admin: 07/21/18 21:41 Dose: 20 mg Tiotropium [place] (Spiriva Respimat) 2 puff IH DAILY [facility] Last Admin: 07/21/18 09:50 Dose: 2 puff Gen: NAD at rest Heart: RRR Lung: distant breath sounds Abd: soft, nontender Ext: no edema Laboratory Results - last 24 hr 07/21/18 07/21/18 07/21/18 12:10 17:10 21:30 WBC RBC Hgb Hct MCV MCH MCHC RDW Plt Count MPV Absolute Neuts (auto) Neutrophils % Lymphocytes % Monocytes % Eosinophils % Basophils % Nucleated RBC % Sodium Potassium Chloride Carbon Dioxide Anion Gap BUN Creatinine Creat Clearance w eGFR POC Glucometer 155 168 110 Random Glucose Calcium Total Bilirubin AST ALT Alkaline Phosphatase Total Protein Albumin 07/22/18 07/22/18 07/22/18 06:30 06:30 06:36 WBC 15.6 H RBC 4.14 Hgb 12.2 Hct 37.5 MCV 90.6 MCH 29.4 MCHC 32.4 RDW 17.0 H Plt Count 108 L MPV 10.3 Absolute Neuts (auto) 15.0 H Neutrophils % 96.2 H Lymphocytes % 1.7 L Monocytes % 1.9 L Eosinophils % 0.0 Basophils % 0.2 Nucleated RBC % 0 Sodium 139 Potassium 4.7 Chloride 99 Carbon Dioxide 35 H Anion Gap 5 L BUN 38 H Creatinine 0.8 Creat Clearance w eGFR > 60 POC Glucometer 124 Random Glucose 115 H Calcium 8.6 Total Bilirubin 0.5 AST 32 ALT 185 H Alkaline Phosphatase 58 Total Protein 5.8 L Albumin 3.1 L A/P Acute COPD Exacerbation s/p RT session NSCLC - Adenocarcinoma LV Diastolic Dysfunction HTN Hypothyroidism Hyperlipidemia - Will leave IV medrol at current dose and change to Prednisone after all anticipated procedures (port & liver biopsy) - inhaled bronchodilators - on empiric antibiotics - O2 to keep SpO2 >90% - DVT prophylaxis - There is no Pulmonary contraindication for anticipated procedures or anesthesia Dr Carlos Problem List - Problems (1) Adenocarcinoma, lung Code(s): C34.90 - MALIGNANT NEOPLASM OF UNSP PART OF UNSP BRONCHUS OR LUNG (2) ASHD (arteriosclerotic heart disease) Code(s): I25.10 - ATHSCL HEART DISEASE OF [place] CORONARY ARTERY W/O ANG PCTRS (3) Anxiety and depression Code(s): F41.9 - ANXIETY DISORDER, UNSPECIFIED; F32.9 - MAJOR DEPRESSIVE DISORDER, SINGLE EPISODE, UNSPECIFIED (4) COPD (chronic obstructive pulmonary disease) Code(s): J44.9 - CHRONIC OBSTRUCTIVE PULMONARY DISEASE, UNSPECIFIED Qualifiers: COPD type: unspecified COPD Qualified Code(s): J44.9 - Chronic obstructive pulmonary disease, unspecified (5) COPD exacerbation Code(s): J44.1 - CHRONIC OBSTRUCTIVE PULMONARY DISEASE W (ACUTE) EXACERBATION (6) Cough Code(s): R05 - COUGH (7) Diastolic CHF Code(s): I50.30 - UNSPECIFIED DIASTOLIC (CONGESTIVE) HEART FAILURE (8) HTN (hypertension) Code(s): I10 - ESSENTIAL (PRIMARY) HYPERTENSION (9) Hyperlipidemia Code(s): E78.5 - HYPERLIPIDEMIA, UNSPECIFIED (10) Hypothyroid Code(s): E03.9 - HYPOTHYROIDISM, UNSPECIFIED (11) Shortness of breath Code(s): R06.02 - SHORTNESS OF BREATH
[2018-07-22] MEDS ORDERED: PT OWN MED DRAWER 7, Y5N ONE ×2 (09:46→22:17)
[2018-07-22] MEDS ORDERED: DEXTROSE 5%-WATER - 50 ML IVPB ONE (09:46)
[2018-07-22] MEDS ORDERED: cefTRIAXone SODIUM 1 GM VIAL ONE (09:46)
[2018-07-22] MEDS: METOPROLOL TARTRATE 25 MG TABLET (FP) PO SCH ×2 (09:53→23:33)
[2018-07-22] MEDS: CEFTRIAXONE 1 GM in DEXTROSE 5%-WATER - 50 ML IVPB SCH (09:53)
[2018-07-22] MEDS: FUROSEMIDE 20 MG TABLET (FP) PO SCH (09:53)
[2018-07-22] MEDS: RANITIDINE HCL 150 MG TABLET (FP) PO SCH (09:53)
[2018-07-22] MEDS: GABAPENTIN 100 MG CAPSULE (FP) PO SCH (09:53)
[2018-07-22] MEDS: methylPREDNISolone NA SUCC 40 MG/1 ML VIAL IVPB SCH ×2 (09:53→23:34)
[2018-07-22] MEDS: PANTOPRAZOLE 40 MG TABLET (FP) PO SCH (09:53)
[2018-07-22] MEDS: BUDESONIDE/FORMETEROL FUMARATE 80/4.5 mcg INHALER IH SCH ×2 (09:54→23:37)
[2018-07-22] MEDS: TIOTROPIUM BROMIDE 2.5 MCG (SPIRIVA) RESPIMAT INHALER IH SCH (09:54)
--- NOTE | 2018-07-22 10:07 | PN ---
Progress Note, Physician History of Present Illness: The patient is an 82 year old white female with a PMH of COPD (on 2L), Stage 3a NSCC lung cancer (currently on radiation), CAD s/p [place] (s/p cardiac stent x3), HTN, HLD was BIBEMS for acute onset of shortness of breath. Patient was completing her first radiation treatment today when she suddenly became short of breath. Denies chest pain, lightheadedness, nausea, diaphoresis. Grandson @ bedside assists in history, notes patient has been taking her Albuterol inhaler multiple times daily. Recent medication addition of Symbicort to her daily regimen. History limited as patient tachycardic, tachypneic @ presentation. NKDA Surgical: Cardiac Stent x3, lung biopsy PMD: Dr. Mary Beth Stein Cardiology: Dr. Bah Pulmonology: Dr. Kern/Dr. Velazquez - Current Medication List Current Medications: Active Medications Acetaminophen (Tylenol -) 650 mg PO Q6H PRN PRN Reason: PAIN Last Admin: 07/21/18 21:42 Dose: 650 mg Albuterol Sulfate (Ventolin 0.083% Nebulizer Soln -) 1 amp NEB Q4H PRN PRN Reason: SHORT OF BREATH/WHEEZING Last Admin: 07/22/18 06:45 Dose: 1 amp Budesonide/Formoterol Fumarate (Symbicort 80/4.5mcg -) 2 puff IH BID [facility] Last Admin: 07/22/18 09:54 Dose: 2 puff Furosemide (Lasix -) 20 mg PO DAILY [facility] Last Admin: 07/22/18 09:53 Dose: 20 mg Gabapentin (Neurontin -) 100 mg PO DAILY [facility] Last Admin: 07/22/18 09:53 Dose: 100 mg Guaifenesin (Robitussin -) 10 ml PO Q6H PRN PRN Reason: COUGH Last Admin: 07/18/18 03:00 Dose: 10 ml Ceftriaxone Sodium 1 gm/ (Dextrose) 50 mls @ 100 mls/hr IVPB DAILY [facility] Last Admin: 07/22/18 09:53 Dose: 100 mls/hr Azithromycin (Zithromax 500mg Ivpb (Pre-Docked)) 500 mg in 250 mls @ 250 mls/ hr IVPB DAILY [facility] Last Admin: 01/20/19 09:49 Dose: 250 mls/hr Insulin Aspart (Novolog Vial Sliding Scale -) 1 vial SQ ACHS [facility]; Protocol Last Admin: 07/22/18 06:35 Dose: Not Given Methylprednisolone Sodium Succinate (Solu-Medrol -) 30 mg IVPB BID [facility] Last Admin: 07/22/18 09:53 Dose: 30 mg Metoprolol Tartrate (Lopressor -) 25 mg PO BID [facility] Last Admin: 07/22/18 09:53 Dose: 25 mg Pantoprazole Sodium (Protonix -) 40 mg PO DAILY [facility] Last Admin: 07/22/18 09:53 Dose: 40 mg Ranitidine HCl (Zantac -) 150 mg PO DAILY [facility] Last Admin: 07/22/18 09:53 Dose: 150 mg Rosuvastatin Calcium (Crestor -) 20 mg PO HS [facility] Last Admin: 07/21/18 21:41 Dose: 20 mg Tiotropium [place] (Spiriva Respimat) 2 puff IH DAILY [facility] Last Admin: 07/22/18 09:54 Dose: 2 puff - Objective Vital Signs: Vital Signs Temperature 97.4 F L 07/22/18 06:00 Pulse Rate 72 07/22/18 06:00 Respiratory Rate 20 07/22/18 06:00 Blood Pressure 131/66 07/22/18 06:00 O2 Sat by Pulse Oximetry (%) 96 07/21/18 20:00 Eyes: Yes: WNL, Conjunctiva Clear, EOM Intact HENT: Yes: WNL, Atraumatic, Normocephalic Neck: Yes: WNL, Supple, Trachea Midline Cardiovascular: Yes: WNL, Regular Rate and Rhythm Respiratory: Yes: Diminished Gastrointestinal: Yes: WNL, Normal Bowel Sounds Genitourinary: Yes: WNL Musculoskeletal: Yes: WNL Extremities: Yes: WNL Edema: No Integumentary: Yes: WNL Neurological: Yes: WNL, Alert, Oriented ...Motor Strength: WNL Psychiatric: Yes: WNL Labs: CBC, BMP 07/22/18 06:30 07/22/18 06:30 INR, PTT INR 1.01 (0.83-1.09) 07/08/18 16:43 Assessment/Plan - Problems (1) Elevated troponin I level Assessment/Plan: 0.02-->0.21-->0.19; normal CK EKG: sinus tachycardia; nonspecific STT changes; HR has since improved (for repeat EKG). Pt likely has demand ischemia from exacerbation of COPD, diastolic CHF, CA, tachycardia. Given pt's advanced lung CA, would recommend conservative management of cardiac condition (she is on metoprolol, statin, ASA). Code(s): R74.8 - ABNORMAL LEVELS OF OTHER SERUM ENZYMES (2) Adenocarcinoma, lung Assessment/Plan: advanced COPD and lung CA. CT chest: Rt lesion with local destruction of ribs; left stable lesion; bilateral pleural effusion. F/u with oncologist, survey research manager. Abdomnal/pelvic CT: small pleural effusions. Diverticulosis and gallstones (no acute processes). Code(s): C34.90 - MALIGNANT NEOPLASM OF UNSP PART OF UNSP BRONCHUS OR LUNG (3) Shortness of breath Assessment/Plan: Lung CA; COPD; diastolic CHF. CT chest results noted. Code(s): R06.02 - SHORTNESS OF BREATH (4) HTN (hypertension) Code(s): I10 - ESSENTIAL (PRIMARY) HYPERTENSION (5) Hyperlipidemia Code(s): E78.5 - HYPERLIPIDEMIA, UNSPECIFIED (6) Sepsis Code(s): A41.9 - SEPSIS, UNSPECIFIED ORGANISM (7) Acute on chronic diastolic CHF (congestive heart failure) Code(s): I50.33 - ACUTE ON CHRONIC DIASTOLIC (CONGESTIVE) HEART FAILURE (8) Thrombocytopenia Code(s): D69.6 - THROMBOCYTOPENIA, UNSPECIFIED
--- NOTE | 2018-07-22 10:23 | PN ---
Progress Note (short form) - Note Progress Note: Vascular team consulted to place chemoport, pt will also need a liver mass biopsy by IR. Pt will have both port and liver biopsy done by Dr. Francis, IR today and tomorrow. Thank you for the opportunity to assist with the care of this pt. Case discussed with Dr. Suarez.
[2018-07-22] MEDS: AZITHROMYCIN IVPB 500 MG/250 ML BAG IVPB SCH (10:50)
[2018-07-22 12:16] LABS: PLATELET ESTIMATE DECREASED
[2018-07-22] MEDS ORDERED: INSULIN (NOVOLOG) ASPART 100 UNITS/ML 10ML VIAL ONE (16:45)
[2018-07-22] MEDS ORDERED: ROSUVASTATIN CA 10 MG TABLET (FP) ONE (22:17)
[2018-07-22] MEDS: ROSUVASTATIN CA 20 MG TABLET (FP) PO SCH (23:33)
--- NOTE | 2018-07-23 06:10 | PN ---
Progress Note, Physician Chief Complaint: s/p liver biopsy no pain; has some cough and GAY WBC increased dw IR Port is on hold for now; afebrile - Current Medication List Current Medications: Active Medications Acetaminophen (Tylenol -) 650 mg PO Q6H PRN PRN Reason: PAIN Last Admin: 07/21/18 21:42 Dose: 650 mg Albuterol Sulfate (Ventolin 0.083% Nebulizer Soln -) 1 amp NEB Q4H PRN PRN Reason: SHORT OF BREATH/WHEEZING Last Admin: 07/22/18 20:16 Dose: 1 amp Budesonide/Formoterol Fumarate (Symbicort 80/4.5mcg -) 2 puff IH BID [facility] Last Admin: 07/22/18 23:37 Dose: 2 puff Furosemide (Lasix -) 20 mg PO DAILY [facility] Last Admin: 07/22/18 09:53 Dose: 20 mg Gabapentin (Neurontin -) 100 mg PO DAILY [facility] Last Admin: 07/22/18 09:53 Dose: 100 mg Guaifenesin (Robitussin -) 10 ml PO Q6H PRN PRN Reason: COUGH Last Admin: 07/18/18 03:00 Dose: 10 ml Ceftriaxone Sodium 1 gm/ (Dextrose) 50 mls @ 100 mls/hr IVPB DAILY [facility] Last Admin: 07/22/18 09:53 Dose: 100 mls/hr Azithromycin (Zithromax 500mg Ivpb (Pre-Docked)) 500 mg in 250 mls @ 250 mls/ hr IVPB DAILY [facility] Last Admin: 07/22/18 10:50 Dose: 250 mls/hr Insulin Aspart (Novolog Vial Sliding Scale -) 1 vial SQ ACHS [facility]; Protocol Last Admin: 07/22/18 23:36 Dose: 4 units Methylprednisolone Sodium Succinate (Solu-Medrol -) 20 mg IVPB BID [facility] Metoprolol Tartrate (Lopressor -) 25 mg PO BID [facility] Last Admin: 07/22/18 23:33 Dose: 25 mg Pantoprazole Sodium (Protonix -) 40 mg PO DAILY [facility] Last Admin: 07/22/18 09:53 Dose: 40 mg Ranitidine HCl (Zantac -) 150 mg PO DAILY [facility] Last Admin: 07/22/18 09:53 Dose: 150 mg Rosuvastatin Calcium (Crestor -) 20 mg PO HS [facility] Last Admin: 07/22/18 23:33 Dose: 20 mg Tiotropium [place] (Spiriva Respimat) 2 puff IH DAILY [facility] Last Admin: 07/22/18 09:54 Dose: 2 puff - Objective Vital Signs: Vital Signs Temperature 97.9 F 07/22/18 22:00 Pulse Rate 80 07/22/18 22:00 Respiratory Rate 18 07/22/18 22:00 Blood Pressure 131/52 L 07/22/18 22:00 O2 Sat by Pulse Oximetry (%) 96 07/22/18 21:00 Constitutional: Yes: No Distress, Calm Eyes: Yes: Conjunctiva Clear HENT: Yes: Atraumatic Neck: Yes: Supple Cardiovascular: Yes: Regular Rate and Rhythm Respiratory: Yes: Rales Gastrointestinal: Yes: Soft. No: Tenderness Genitourinary: No: CVA Tenderness - Left, CVA Tenderness - Right Musculoskeletal: No: Joint Stiffness, Joint Swelling Extremities: No: Cold, Cool Edema: No Integumentary: No: Rash, Venous Stasis Changes Neurological: Yes: WNL, Alert, Oriented ...Motor Strength: WNL Psychiatric: Yes: WNL, Alert, Oriented. No: Agitated, Suicidal Ideation Labs: CBC, BMP 07/22/18 06:30 07/22/18 06:30 INR, PTT INR 1.01 (0.83-1.09) 07/08/18 16:43 - ....Imaging Other: Report Reviewed Assessment/Plan The patient is an 82 year old female with a PMH of COPD (on 2L), Stage 3a NSCC ( currently on radiation), CAD s/p [place] (s/p cardiac stent x3), HTN, HLD \admitted with acute onset of shortness of breath, acute on chronic COPD exac and bronchitis iv steroids, nebs, O2 and iv antibiotics PULM, Cardiology f/u high LFT; liver mass - s/p IR liver biopsy f/u labs and path ONC f/u, rad tx f/u for port placement on hold for increasing wbc, f/u labs heme onc f/u d/w pt and staff
[2018-07-23] MEDS: INSULIN SLIDING SCALE (NOVOLOG) 1 VIAL SQ SCH ×4 (07:00→22:19)
[2018-07-23] MEDS: methylPREDNISolone NA SUCC 40 MG/1 ML VIAL IVPB SCH ×2 (07:04→22:19)
[2018-07-23 08:47] LABS: BASO % 0.4 % (0-2.0); HEMATOCRIT 37.8 % (32.4-45.2); HEMOGLOBIN 12.2 GM/dL (10.7-15.3); LYMPH % 0.8 % (8-40); MCH 29.2 pg (25.7-33.7); MCHC 32.3 g/dl (32.0-36.0); MEAN CELL VOLUME 90.4 fl (80-96); MEAN PLT VOLUME 10.8 fl (7.5-11.1); MONO % 1.6 % (3.8-10.2); NEUT % 97.2 % (42.8-82.8); PLATELET COUNT 107 K/MM3 (134-434); RBC 4.19 M/mm3 (3.60-5.2); RDW 17.8 % (11.6-15.6)
[2018-07-23 09:10] LABS: ALBUMIN 3.2 g/dl (3.4-5.0); ALK PHOS 57 U/L (45-117); ANION GAP 7 MMOL/L (8-16); BILIRUBIN,TOTAL 0.3 mg/dL (0.2-1); BLOOD UREA NITROGEN 47 mg/dL (7-18); CALCIUM 9.1 mg/dL (8.5-10.1); CHLORIDE 101 mmol/L (98-107); CO2 35 mmol/L (21-32); CREATININE 0.7 mg/dL (0.55-1.3); GLUCOSE,RANDOM 124 mg/dL (74-106); POTASSIUM 4.6 mmol/L (3.5-5.1); SGOT/AST 35 U/L (15-37); SGPT/ALT 163 U/L (13-61); SODIUM 143 mmol/L (136-145); TOT PROT 5.8 g/dl (6.4-8.2)
--- NOTE | 2018-07-23 09:21 | PN ---
Progress Note (short form) - Note Progress Note: Feels OK today. Some cough persists, but better. S/P liver biopsy yesterday without incident. No acute events overnight. Intake & Output 07/20/18 07/21/18 07/22/18 07/23/18 23:59 23:59 23:59 23:59 Intake Total 1090 1620 450 0 Balance 1090 1620 450 0 Weight 89 lb 12.8 oz 88 lb 14.4 oz 89 lb 2 oz Last Vital Signs Temp Pulse Resp BP Pulse Ox 97.6 F 72 20 119/64 96 07/23/18 06:46 07/23/18 06:46 07/23/18 06:46 07/23/18 06:46 07/22/18 21:00 Active Medications Acetaminophen (Tylenol -) 650 mg PO Q6H PRN PRN Reason: PAIN Last Admin: 07/21/18 21:42 Dose: 650 mg Albuterol Sulfate (Ventolin 0.083% Nebulizer Soln -) 1 amp NEB Q4H PRN PRN Reason: SHORT OF BREATH/WHEEZING Last Admin: 07/22/18 20:16 Dose: 1 amp Budesonide/Formoterol Fumarate (Symbicort 80/4.5mcg -) 2 puff IH BID [facility] Last Admin: 07/22/18 23:37 Dose: 2 puff Furosemide (Lasix -) 20 mg PO DAILY [facility] Last Admin: 07/22/18 09:53 Dose: 20 mg Gabapentin (Neurontin -) 100 mg PO DAILY [facility] Last Admin: 07/22/18 09:53 Dose: 100 mg Guaifenesin (Robitussin -) 10 ml PO Q6H PRN PRN Reason: COUGH Last Admin: 07/18/18 03:00 Dose: 10 ml Ceftriaxone Sodium 1 gm/ (Dextrose) 50 mls @ 100 mls/hr IVPB DAILY [facility] Last Admin: 07/22/18 09:53 Dose: 100 mls/hr Azithromycin (Zithromax 500mg Ivpb (Pre-Docked)) 500 mg in 250 mls @ 250 mls/ hr IVPB DAILY [facility] Last Admin: 07/22/18 10:50 Dose: 250 mls/hr Insulin Aspart (Novolog Vial Sliding Scale -) 1 vial SQ ACHS [facility]; Protocol Last Admin: 07/23/18 07:00 Dose: Not Given Methylprednisolone Sodium Succinate (Solu-Medrol -) 20 mg IVPB BID [facility] Last Admin: 07/23/18 07:04 Dose: 20 mg Metoprolol Tartrate (Lopressor -) 25 mg PO BID [facility] Last Admin: 07/22/18 23:33 Dose: 25 mg Pantoprazole Sodium (Protonix -) 40 mg PO DAILY [facility] Last Admin: 07/22/18 09:53 Dose: 40 mg Ranitidine HCl (Zantac -) 150 mg PO DAILY [facility] Last Admin: 07/22/18 09:53 Dose: 150 mg Rosuvastatin Calcium (Crestor -) 20 mg PO HS [facility] Last Admin: 07/22/18 23:33 Dose: 20 mg Tiotropium [place] (Spiriva Respimat) 2 puff IH DAILY [facility] Last Admin: 07/22/18 09:54 Dose: 2 puff Gen: NAD at rest Heart: RRR Lung: distant breath sounds Abd: soft, nontender Ext: no edema Laboratory Results - last 24 hr 07/22/18 07/22/18 07/22/18 06:30 11:37 16:48 WBC RBC Hgb Hct MCV MCH MCHC RDW Plt Count MPV Absolute Neuts (auto) Neutrophils % Neutrophils % (Manual) 98.2 H Band Neutrophils % 0.0 Lymphocytes % Lymphocytes % (Manual) 0.9 L Monocytes % Monocytes % (Manual) 0 L D Eosinophils % Eosinophils % (Manual) 0.0 Basophils % Basophils % (Manual) 0.0 Myelocytes % (Man) 0 Promyelocytes % (Man) 0 Blast Cells % (Manual) 0 Nucleated RBC % Metamyelocytes 0 Platelet Estimate Decreased Sodium Potassium Chloride Carbon Dioxide Anion Gap BUN Creatinine Creat Clearance w eGFR POC Glucometer 154 82 Random Glucose Calcium Total Bilirubin AST ALT Alkaline Phosphatase Total Protein Albumin 07/22/18 07/23/18 07/23/18 23:35 08:05 08:05 WBC 18.0 H RBC 4.19 Hgb 12.2 Hct 37.8 MCV 90.4 MCH 29.2 MCHC 32.3 RDW 17.8 H Plt Count 107 L MPV 10.8 Absolute Neuts (auto) 17.5 H Neutrophils % 97.2 H Neutrophils % (Manual) Band Neutrophils % Lymphocytes % 0.8 L Lymphocytes % (Manual) Monocytes % 1.6 L Monocytes % (Manual) Eosinophils % 0.0 Eosinophils % (Manual) Basophils % 0.4 Basophils % (Manual) Myelocytes % (Man) Promyelocytes % (Man) Blast Cells % (Manual) Nucleated RBC % 0 Metamyelocytes Platelet Estimate Sodium 143 Potassium 4.6 Chloride 101 Carbon Dioxide 35 H Anion Gap 7 L BUN 47 H Creatinine 0.7 Creat Clearance w eGFR > 60 POC Glucometer 214 Random Glucose 124 H Calcium 9.1 Total Bilirubin 0.3 AST 35 ALT 163 H Alkaline Phosphatase 57 Total Protein 5.8 L Albumin 3.2 L A/P Acute COPD Exacerbation NSCLC - Adenocarcinoma S/P RT LV Diastolic Dysfunction HTN Hypothyroidism Hyperlipidemia - Will leave IV medrol at current dose: change to Prednisone in AM (after all anticipated procedures: port & liver biopsy) - inhaled bronchodilators - on empiric antibiotics - O2 to keep SpO2 >90% - DVT prophylaxis - There is no Pulmonary contraindication for anticipated procedures or anesthesia Dr Carlos Problem List - Problems (1) Adenocarcinoma, lung Code(s): C34.90 - MALIGNANT NEOPLASM OF UNSP PART OF UNSP BRONCHUS OR LUNG (2) ASHD (arteriosclerotic heart disease) Code(s): I25.10 - ATHSCL HEART DISEASE OF [place] CORONARY ARTERY W/O ANG PCTRS (3) Anxiety and depression Code(s): F41.9 - ANXIETY DISORDER, UNSPECIFIED; F32.9 - MAJOR DEPRESSIVE DISORDER, SINGLE EPISODE, UNSPECIFIED (4) COPD (chronic obstructive pulmonary disease) Code(s): J44.9 - CHRONIC OBSTRUCTIVE PULMONARY DISEASE, UNSPECIFIED Qualifiers: COPD type: unspecified COPD Qualified Code(s): J44.9 - Chronic obstructive pulmonary disease, unspecified (5) COPD exacerbation Code(s): J44.1 - CHRONIC OBSTRUCTIVE PULMONARY DISEASE W (ACUTE) EXACERBATION (6) Cough Code(s): R05 - COUGH (7) Diastolic CHF Code(s): I50.30 - UNSPECIFIED DIASTOLIC (CONGESTIVE) HEART FAILURE (8) HTN (hypertension) Code(s): I10 - ESSENTIAL (PRIMARY) HYPERTENSION (9) Hyperlipidemia Code(s): E78.5 - HYPERLIPIDEMIA, UNSPECIFIED (10) Hypothyroid Code(s): E03.9 - HYPOTHYROIDISM, UNSPECIFIED (11) Shortness of breath Code(s): R06.02 - SHORTNESS OF BREATH
[2018-07-23] MEDS ORDERED: DEXTROSE 5%-WATER - 50 ML IVPB ONE (09:30)
[2018-07-23] MEDS ORDERED: PT OWN MED DRAWER 7, Y5N ONE (09:30)
[2018-07-23] MEDS ORDERED: cefTRIAXone SODIUM 1 GM VIAL ONE (09:30)
[2018-07-23] MEDS: CEFTRIAXONE 1 GM in DEXTROSE 5%-WATER - 50 ML IVPB SCH (09:32)
[2018-07-23] MEDS: TIOTROPIUM BROMIDE 2.5 MCG (SPIRIVA) RESPIMAT INHALER IH SCH (09:33)
[2018-07-23] MEDS: BUDESONIDE/FORMETEROL FUMARATE 80/4.5 mcg INHALER IH SCH ×2 (09:33→22:20)
[2018-07-23] MEDS: AZITHROMYCIN IVPB 500 MG/250 ML BAG IVPB SCH (10:14)
[2018-07-23] MEDS: FUROSEMIDE 20 MG TABLET (FP) PO SCH (11:01)
[2018-07-23] MEDS: GABAPENTIN 100 MG CAPSULE (FP) PO SCH (11:01)
[2018-07-23] MEDS: METOPROLOL TARTRATE 25 MG TABLET (FP) PO SCH ×2 (11:01→22:19)
[2018-07-23] MEDS: RANITIDINE HCL 150 MG TABLET (FP) PO SCH (11:02)
[2018-07-23] MEDS: PANTOPRAZOLE 40 MG TABLET (FP) PO SCH (11:02)
[2018-07-23] MEDS ORDERED: INSULIN (NOVOLOG) ASPART 100 UNITS/ML 10ML VIAL ONE (11:04)
[2018-07-23 12:12] LABS: ACANTHOCYTES 1+; ANISOCYTOSIS 2+; MACROCYTOSIS 0; OVALOCYTE 1+; PLATELET ESTIMATE DECREASED
[2018-07-23] MEDS: ALBUTEROL SO4 0.083% IH SOL 2.5 MG/3 ML VIAL.NEB. NEB PRN ×2 (15:50→19:56)
--- NOTE | 2018-07-23 17:36 | PN ---
Progress Note (short form) - Note Progress Note: Patient seen and examined Port insertion held in view of unexplained rising WBC despite being afebrile - on steroids Offers no specific complaints Last Vital Signs Temp Pulse Resp BP Pulse Ox 97.8 F 72 20 141/56 L 99 07/23/18 15:08 07/23/18 15:08 07/23/18 15:08 07/23/18 15:08 07/23/18 09:00 HEENT: KEIRY, EOM Intact Cor: RSR, No murmurs, No gallops Lungs: diminished breath sounds bilaterally Abd: Soft, Normal bowel sounds, No organomegaly Ext:No significant edema Skin: No rashes, Integument intact CBC, BMP 07/23/18 08:05 07/23/18 08:05 Current Medications Generic Name Dose Route Start Last Admin Trade Name Freq PRN Reason Stop Dose Admin Acetaminophen 650 mg 07/08/18 19:43 07/21/18 21:42 Tylenol - PO 650 mg Q6H PRN Administration PAIN Albuterol Sulfate 1 amp 07/08/18 19:43 07/22/18 20:16 Ventolin 0.083% Nebulizer Soln - NEB 1 amp Q4H PRN Administration SHORT OF BREATH/WHEEZING Budesonide/Formoterol Fumarate 2 puff 07/10/18 22:00 07/23/18 09:33 Symbicort 80/4.5mcg - IH 2 puff BID [facility] Administration Furosemide 20 mg 07/11/18 10:00 07/23/18 11:01 Lasix - PO 20 mg DAILY [facility] Administration Gabapentin 100 mg 07/15/18 20:00 07/23/18 11:01 Neurontin - PO 100 mg DAILY [facility] Administration Guaifenesin 10 ml 07/08/18 19:43 07/18/18 03:00 Robitussin - PO 10 ml Q6H PRN Administration COUGH Ceftriaxone Sodium 1 gm/ 50 mls @ 100 mls/hr 07/09/18 10:30 07/23/18 09:32 Dextrose IVPB 100 mls/hr DAILY [facility] Administration Azithromycin 500 mg in 250 mls @ 250 mls/hr 07/09/18 10:30 07/23/18 10:14 Zithromax 500mg Ivpb (Pre-Docked) IVPB 250 mls/hr DAILY [facility] Administration Insulin Aspart 1 vial 07/08/18 22:00 07/23/18 16:48 Novolog Vial Sliding Scale - SQ Not Given ACHS [facility] Protocol Methylprednisolone Sodium Succinate 20 mg 07/23/18 06:30 07/23/18 07:04 Solu-Medrol - IVPB 20 mg BID [facility] Administration Metoprolol Tartrate 25 mg 07/08/18 22:00 07/23/18 11:01 Lopressor - PO 25 mg BID [facility] Administration Pantoprazole Sodium 40 mg 07/11/18 23:00 07/23/18 11:02 Protonix - PO 40 mg DAILY [facility] Administration Ranitidine HCl 150 mg 07/09/18 10:00 07/23/18 11:02 Zantac - PO 150 mg DAILY [facility] Administration Rosuvastatin Calcium 20 mg 07/08/18 22:00 07/22/18 23:33 Crestor - PO 20 mg HS JOHN Administration Tiotropium [place] 2 puff 07/09/18 10:00 07/23/18 09:33 Spiriva Respimat IH 2 puff DAILY [facility] Administration Impression: COPD exacerbation [place] of LUNG S/P liver biopsy Rising WBC Plan : Culture blood, urine and chest x-ray. Hold port insertion to increased WBC explained
[2018-07-23] MEDS ORDERED: ROSUVASTATIN CA 10 MG TABLET (FP) ONE (22:05)
[2018-07-23] MEDS: ROSUVASTATIN CA 20 MG TABLET (FP) PO SCH (22:20)
--- NOTE | 2018-07-24 01:43 | PN ---
Progress Note, Physician Chief Complaint: Pt A&Ox3; OOB in chair; no chest pain except when she coughs: this leads to right-sided chest pain. Tolerated yesterday's liver biopsy well. She would like to visit her daughter (who was admitted yesterday to another floor). History of Present Illness: The patient is an 82 year old white female with a PMH of COPD (on 2L), Stage 3a NSCC lung cancer (currently on radiation), CAD s/p [place] (s/p cardiac stent x3), HTN, HLD was BIBEMS for acute onset of shortness of breath. Patient was completing her first radiation treatment today when she suddenly became short of breath. Denies chest pain, lightheadedness, nausea, diaphoresis. Grandson @ bedside assists in history, notes patient has been taking her Albuterol inhaler multiple times daily. Recent medication addition of Symbicort to her daily regimen. History limited as patient tachycardic, tachypneic @ presentation. NKDA Surgical: Cardiac Stent x3, lung biopsy PMD: Dr. Mary Beth Stein Cardiology: Dr. Bah Pulmonology: Dr. Kern/Dr. Velazquez - Current Medication List Current Medications: Active Medications Acetaminophen (Tylenol -) 650 mg PO Q6H PRN PRN Reason: PAIN Last Admin: 07/21/18 21:42 Dose: 650 mg Albuterol Sulfate (Ventolin 0.083% Nebulizer Soln -) 1 amp NEB Q4H PRN PRN Reason: SHORT OF BREATH/WHEEZING Last Admin: 07/23/18 19:56 Dose: 1 amp Budesonide/Formoterol Fumarate (Symbicort 80/4.5mcg -) 2 puff IH BID [facility] Last Admin: 07/23/18 22:20 Dose: 2 puff Furosemide (Lasix -) 20 mg PO DAILY [facility] Last Admin: 07/23/18 11:01 Dose: 20 mg Gabapentin (Neurontin -) 100 mg PO DAILY [facility] Last Admin: 07/23/18 11:01 Dose: 100 mg Guaifenesin (Robitussin -) 10 ml PO Q6H PRN PRN Reason: COUGH Last Admin: 07/18/18 03:00 Dose: 10 ml Ceftriaxone Sodium 1 gm/ (Dextrose) 50 mls @ 100 mls/hr IVPB DAILY [facility] Last Admin: 07/23/18 09:32 Dose: 100 mls/hr Azithromycin (Zithromax 500mg Ivpb (Pre-Docked)) 500 mg in 250 mls @ 250 mls/ hr IVPB DAILY [facility] Last Admin: 07/23/18 10:14 Dose: 250 mls/hr Insulin Aspart (Novolog Vial Sliding Scale -) 1 vial SQ ACHS [facility]; Protocol Last Admin: 07/23/18 22:19 Dose: 2 units Methylprednisolone Sodium Succinate (Solu-Medrol -) 20 mg IVPB BID [facility] Last Admin: 07/23/18 22:19 Dose: 20 mg Metoprolol Tartrate (Lopressor -) 25 mg PO BID [facility] Last Admin: 07/23/18 22:19 Dose: 25 mg Pantoprazole Sodium (Protonix -) 40 mg PO DAILY [facility] Last Admin: 07/23/18 11:02 Dose: 40 mg Ranitidine HCl (Zantac -) 150 mg PO DAILY [facility] Last Admin: 07/23/18 11:02 Dose: 150 mg Rosuvastatin Calcium (Crestor -) 20 mg PO HS [facility] Last Admin: 07/23/18 22:20 Dose: 20 mg Tiotropium [place] (Spiriva Respimat) 2 puff IH DAILY [facility] Last Admin: 07/23/18 09:33 Dose: 2 puff - Objective Vital Signs: Vital Signs Temperature 98.6 F 07/23/18 16:30 Pulse Rate 78 07/23/18 16:30 Respiratory Rate 22 H 07/23/18 16:30 Blood Pressure 138/55 L 07/23/18 16:30 O2 Sat by Pulse Oximetry (%) 99 07/23/18 09:00 Constitutional: Yes: No Distress Eyes: Yes: WNL HENT: Yes: WNL Cardiovascular: Yes: S1, S2, S4 Respiratory: Yes: Diminished, Poor Air Entry (bilaterally, though better on the left) Gastrointestinal: Yes: Soft ...Rectal Exam: Yes: Deferred Genitourinary: No: Anuria Breast(s): Yes: WNL Musculoskeletal: Yes: Muscle Weakness Extremities: Yes: Cool Edema: Yes Edema: LLE: Trace, RLE: Trace Peripheral Pulses WNL: No Peripheral Pulses: Left Doralis Pedis: 1+, Right Dorsalis Pedis: 1+ Integumentary: Yes: WNL Neurological: Yes: WNL Psychiatric: Yes: Other Labs: CBC, BMP 07/23/18 08:05 07/23/18 08:05 INR, PTT INR 1.01 (0.83-1.09) 07/08/18 16:43 Abnormal Lab Results 07/23/18 07/23/18 08:05 08:05 WBC 18.0 H RDW 17.8 H Plt Count 107 L Absolute Neuts (auto) 17.5 H Neutrophils % 97.2 H Neutrophils % (Manual) 93.0 H Lymphocytes % 0.8 L Lymphocytes % (Manual) 2.0 L D Monocytes % 1.6 L Monocytes % (Manual) 0 L Eosinophils % (Manual) 5.0 H D Carbon Dioxide 35 H Anion Gap 7 L BUN 47 H Random Glucose 124 H ALT 163 H Total Protein 5.8 L Albumin 3.2 L Problem List - Problems (1) Elevated troponin I level Assessment/Plan: 0.02-->0.21-->0.19; normal CK EKG: sinus tachycardia; nonspecific STT changes; HR has since improved (for repeat EKG). Pt likely has demand ischemia from exacerbation of COPD, diastolic CHF, CA, tachycardia. Given pt's advanced lung CA, would recommend conservative management of cardiac condition (she is on metoprolol, statin, ASA). Code(s): R74.8 - ABNORMAL LEVELS OF OTHER SERUM ENZYMES (2) Adenocarcinoma, lung Assessment/Plan: advanced COPD and lung CA. CT chest: Rt lesion with local destruction of ribs; left stable lesion; bilateral pleural effusion. 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 Abdomnal/pelvic CT: small pleural effusions. Diverticulosis and gallstones (no acute processes). On antibiotics. s/p liver biopsy. Awaits port insertion for chemotherapy. Code(s): C34.90 - MALIGNANT NEOPLASM OF UNSP PART OF UNSP BRONCHUS OR LUNG (3) Shortness of breath Assessment/Plan: Lung CA; COPD; diastolic CHF. CT chest results noted. Code(s): R06.02 - SHORTNESS OF BREATH (4) HTN (hypertension) Assessment/Plan: On metoprolol and furosemide. Code(s): I10 - ESSENTIAL (PRIMARY) HYPERTENSION (5) Hyperlipidemia Assessment/Plan: on statin Code(s): E78.5 - HYPERLIPIDEMIA, UNSPECIFIED (6) Acute on chronic diastolic CHF (congestive heart failure) Assessment/Plan: On metoprolol and Furosemide f/u BUn/Cr, electrolytes, daily weight, Is and Os. Code(s): I50.33 - ACUTE ON CHRONIC DIASTOLIC (CONGESTIVE) HEART FAILURE (7) Thrombocytopenia Assessment/Plan: Developed during this admission; improving. Off ASA. Code(s): D69.6 - THROMBOCYTOPENIA, UNSPECIFIED (8) Leukocytosis Assessment/Plan: WBCs increasing over the past week; afebrile. F/u with hem/onc. Code(s): D72.829 - ELEVATED WHITE BLOOD CELL COUNT, UNSPECIFIED
[2018-07-24] MEDS: INSULIN SLIDING SCALE (NOVOLOG) 1 VIAL SQ SCH ×4 (06:29→22:22)
[2018-07-24 07:20] LABS: HEMATOCRIT 32.1 % (32.4-45.2); HEMOGLOBIN 10.4 GM/dL (10.7-15.3); MCH 29.1 pg (25.7-33.7); MCHC 32.3 g/dl (32.0-36.0); MEAN CELL VOLUME 90.1 fl (80-96); MEAN PLT VOLUME 10.5 fl (7.5-11.1); MONO % 2.8 % (3.8-10.2); NEUT % 96.2 % (42.8-82.8); PLATELET COUNT 75 K/MM3 (134-434); RBC 3.56 M/mm3 (3.60-5.2); RDW 17.7 % (11.6-15.6); WHITE BLOOD COUNT 13.3 K/mm3 (4.0-10.0)
--- NOTE | 2018-07-24 08:18 | PN ---
Progress Note, Physician Chief Complaint: OOB to chair no new c/o WBC better today will call IR and d/w heme further management - Current Medication List Current Medications: Active Medications Acetaminophen (Tylenol -) 650 mg PO Q6H PRN PRN Reason: PAIN Last Admin: 07/21/18 21:42 Dose: 650 mg Albuterol Sulfate (Ventolin 0.083% Nebulizer Soln -) 1 amp NEB Q4H PRN PRN Reason: SHORT OF BREATH/WHEEZING Last Admin: 07/23/18 19:56 Dose: 1 amp Budesonide/Formoterol Fumarate (Symbicort 80/4.5mcg -) 2 puff IH BID [facility] Last Admin: 07/23/18 22:20 Dose: 2 puff Furosemide (Lasix -) 20 mg PO DAILY [facility] Last Admin: 07/23/18 11:01 Dose: 20 mg Gabapentin (Neurontin -) 100 mg PO DAILY [facility] Last Admin: 07/23/18 11:01 Dose: 100 mg Guaifenesin (Robitussin -) 10 ml PO Q6H PRN PRN Reason: COUGH Last Admin: 07/18/18 03:00 Dose: 10 ml Ceftriaxone Sodium 1 gm/ (Dextrose) 50 mls @ 100 mls/hr IVPB DAILY [facility] Last Admin: 07/23/18 09:32 Dose: 100 mls/hr Azithromycin (Zithromax 500mg Ivpb (Pre-Docked)) 500 mg in 250 mls @ 250 mls/ hr IVPB DAILY [facility] Last Admin: 07/23/18 10:14 Dose: 250 mls/hr Insulin Aspart (Novolog Vial Sliding Scale -) 1 vial SQ ACHS [facility]; Protocol Last Admin: 07/24/18 06:29 Dose: 2 units Methylprednisolone Sodium Succinate (Solu-Medrol -) 20 mg IVPB BID [facility] Last Admin: 07/23/18 22:19 Dose: 20 mg Metoprolol Tartrate (Lopressor -) 25 mg PO BID [facility] Last Admin: 07/23/18 22:19 Dose: 25 mg Pantoprazole Sodium (Protonix -) 40 mg PO DAILY [facility] Last Admin: 07/23/18 11:02 Dose: 40 mg Ranitidine HCl (Zantac -) 150 mg PO DAILY [facility] Last Admin: 07/23/18 11:02 Dose: 150 mg Rosuvastatin Calcium (Crestor -) 20 mg PO HS [facility] Last Admin: 07/23/18 22:20 Dose: 20 mg Tiotropium [place] (Spiriva Respimat) 2 puff IH DAILY [facility] Last Admin: 07/23/18 09:33 Dose: 2 puff - Objective Vital Signs: Vital Signs Temperature 97.6 F 07/24/18 06:00 Pulse Rate 81 07/24/18 06:00 Respiratory Rate 22 H 07/24/18 06:00 Blood Pressure 142/66 07/24/18 06:00 O2 Sat by Pulse Oximetry (%) 99 07/23/18 09:00 Constitutional: Yes: No Distress Eyes: Yes: Conjunctiva Clear HENT: Yes: Atraumatic Neck: Yes: Supple Cardiovascular: Yes: Regular Rate and Rhythm Respiratory: Yes: Rales Gastrointestinal: Yes: Soft. No: Tenderness Genitourinary: No: Hematuria Musculoskeletal: No: Joint Stiffness, Joint Swelling Extremities: No: Cold, Cool Edema: No Integumentary: No: Rash, Venous Stasis Changes Neurological: Yes: WNL, Alert, Oriented ...Motor Strength: WNL Psychiatric: Yes: WNL, Alert, Oriented. No: Agitated Labs: CBC, BMP 07/24/18 06:30 INR, PTT INR 1.01 (0.83-1.09) 07/08/18 16:43 - ....Imaging Other: Report Reviewed Assessment/Plan The patient is an 82 year old female with a PMH of COPD (on 2L), Stage 3a NSCC ( currently on radiation), CAD s/p [place] (s/p cardiac stent x3), HTN, HLD \admitted with acute onset of shortness of breath, acute on chronic COPD exac and bronchitis iv steroids, nebs, O2 and iv antibiotics PULM, Cardiology f/u high LFT; liver mass - s/p IR liver biopsy f/u labs and path ONC f/u, rad tx f/u for port placement on hold for increasing wbc, f/u labs better today heme onc f/u d/w pt and staff
[2018-07-24 08:22] LABS: ALBUMIN 2.8 g/dl (3.4-5.0); ALK PHOS 46 U/L (45-117); ANION GAP 6 MMOL/L (8-16); BILIRUBIN,TOTAL 0.3 mg/dL (0.2-1); BLOOD UREA NITROGEN 45 mg/dL (7-18); CALCIUM 8.7 mg/dL (8.5-10.1); CHLORIDE 100 mmol/L (98-107); CO2 33 mmol/L (21-32); CREATININE 0.8 mg/dL (0.55-1.3); GLUCOSE,RANDOM 191 mg/dL (74-106); POTASSIUM 4.7 mmol/L (3.5-5.1); SGOT/AST 30 U/L (15-37); SGPT/ALT 119 U/L (13-61); SODIUM 138 mmol/L (136-145)
[2018-07-24] MEDS ORDERED: PT OWN MED DRAWER 7, Y5N ONE (10:21)
[2018-07-24] MEDS ORDERED: cefTRIAXone SODIUM 1 GM VIAL ONE (10:22)
[2018-07-24] MEDS ORDERED: DEXTROSE 5%-WATER - 50 ML IVPB ONE (10:22)
[2018-07-24] MEDS: METOPROLOL TARTRATE 25 MG TABLET (FP) PO SCH ×2 (10:23→22:12)
[2018-07-24] MEDS: FUROSEMIDE 20 MG TABLET (FP) PO SCH (10:23)
[2018-07-24] MEDS: PANTOPRAZOLE 40 MG TABLET (FP) PO SCH (10:24)
[2018-07-24] MEDS: GABAPENTIN 100 MG CAPSULE (FP) PO SCH (10:24)
[2018-07-24] MEDS: CEFTRIAXONE 1 GM in DEXTROSE 5%-WATER - 50 ML IVPB SCH (10:25)
[2018-07-24] MEDS: RANITIDINE HCL 150 MG TABLET (FP) PO SCH (10:25)
[2018-07-24] MEDS: methylPREDNISolone NA SUCC 40 MG/1 ML VIAL IVPB SCH ×2 (10:26→22:11)
[2018-07-24] MEDS: BUDESONIDE/FORMETEROL FUMARATE 80/4.5 mcg INHALER IH SCH ×2 (10:28→22:14)
[2018-07-24] MEDS: TIOTROPIUM BROMIDE 2.5 MCG (SPIRIVA) RESPIMAT INHALER IH SCH (10:28)
[2018-07-24 10:52] LABS: BASO % 0.6 % (0-2.0); HEMOGLOBIN 11.3 GM/dL (10.7-15.3); LYMPH % 1.3 % (8-40); MCH 29.1 pg (25.7-33.7); MCHC 32.3 g/dl (32.0-36.0); MEAN CELL VOLUME 90.1 fl (80-96); MEAN PLT VOLUME 10.1 fl (7.5-11.1); MONO % 5.5 % (3.8-10.2); NEUT % 92.6 % (42.8-82.8); PLATELET COUNT 91 K/MM3 (134-434); RBC 3.88 M/mm3 (3.60-5.2); RDW 17.2 % (11.6-15.6); WHITE BLOOD COUNT 18.2 K/mm3 (4.0-10.0)
[2018-07-24] MEDS: AZITHROMYCIN IVPB 500 MG/250 ML BAG IVPB SCH (11:14)
[2018-07-24 11:20] LABS: ANISOCYTOSIS 1+; MACROCYTOSIS 0; PLATELET ESTIMATE DECREASED
--- NOTE | 2018-07-24 12:22 | PN ---
Progress Note, Physician History of Present Illness: The patient is an 82 year old white female with a PMH of COPD (on 2L), Stage 3a NSCC lung cancer (currently on radiation), CAD s/p [place] (s/p cardiac stent x3), HTN, HLD was BIBEMS for acute onset of shortness of breath. Patient was completing her first radiation treatment today when she suddenly became short of breath. Denies chest pain, lightheadedness, nausea, diaphoresis. Grandson @ bedside assists in history, notes patient has been taking her Albuterol inhaler multiple times daily. Recent medication addition of Symbicort to her daily regimen. History limited as patient tachycardic, tachypneic @ presentation. NKDA Surgical: Cardiac Stent x3, lung biopsy PMD: Dr. Mary Beth Stein Cardiology: Dr. Bah Pulmonology: Dr. Kern/Dr. Velazquez - Current Medication List Current Medications: Active Medications Acetaminophen (Tylenol -) 650 mg PO Q6H PRN PRN Reason: PAIN Last Admin: 07/21/18 21:42 Dose: 650 mg Albuterol Sulfate (Ventolin 0.083% Nebulizer Soln -) 1 amp NEB Q4H PRN PRN Reason: SHORT OF BREATH/WHEEZING Last Admin: 07/23/18 19:56 Dose: 1 amp Budesonide/Formoterol Fumarate (Symbicort 80/4.5mcg -) 2 puff IH BID [facility] Last Admin: 07/24/18 10:28 Dose: 2 puff Furosemide (Lasix -) 20 mg PO DAILY [facility] Last Admin: 07/24/18 10:23 Dose: 20 mg Gabapentin (Neurontin -) 100 mg PO DAILY [facility] Last Admin: 07/24/18 10:24 Dose: 100 mg Guaifenesin (Robitussin -) 10 ml PO Q6H PRN PRN Reason: COUGH Last Admin: 07/18/18 03:00 Dose: 10 ml Ceftriaxone Sodium 1 gm/ (Dextrose) 50 mls @ 100 mls/hr IVPB DAILY [facility] Last Admin: 07/24/18 10:25 Dose: 100 mls/hr Azithromycin (Zithromax 500mg Ivpb (Pre-Docked)) 500 mg in 250 mls @ 250 mls/ hr IVPB DAILY [facility] Last Admin: 01/23/19 11:14 Dose: 250 mls/hr Insulin Aspart (Novolog Vial Sliding Scale -) 1 vial SQ ACHS [facility]; Protocol Last Admin: 07/24/18 11:47 Dose: Not Given Methylprednisolone Sodium Succinate (Solu-Medrol -) 20 mg IVPB BID [facility] Last Admin: 07/24/18 10:26 Dose: 20 mg Metoprolol Tartrate (Lopressor -) 25 mg PO BID [facility] Last Admin: 07/24/18 10:23 Dose: 25 mg Pantoprazole Sodium (Protonix -) 40 mg PO DAILY [facility] Last Admin: 07/24/18 10:24 Dose: 40 mg Ranitidine HCl (Zantac -) 150 mg PO DAILY [facility] Last Admin: 07/24/18 10:25 Dose: 150 mg Rosuvastatin Calcium (Crestor -) 20 mg PO HS [facility] Last Admin: 07/23/18 22:20 Dose: 20 mg Tiotropium [place] (Spiriva Respimat) 2 puff IH DAILY [facility] Last Admin: 07/24/18 10:28 Dose: 2 puff - Objective Vital Signs: Vital Signs Temperature 97.4 F L 07/24/18 08:05 Pulse Rate 76 07/24/18 08:05 Respiratory Rate 20 07/24/18 08:05 Blood Pressure 141/71 07/24/18 08:05 O2 Sat by Pulse Oximetry (%) 100 07/24/18 09:00 Eyes: Yes: WNL, Conjunctiva Clear, EOM Intact HENT: Yes: WNL, Atraumatic, Normocephalic Neck: Yes: WNL, Supple, Trachea Midline Cardiovascular: Yes: WNL, Regular Rate and Rhythm Respiratory: Yes: WNL, Regular, Diminished Gastrointestinal: Yes: WNL, Normal Bowel Sounds Genitourinary: Yes: WNL Musculoskeletal: Yes: WNL Extremities: Yes: WNL Edema: No Integumentary: Yes: WNL Neurological: Yes: WNL, Alert, Oriented ...Motor Strength: WNL Psychiatric: Yes: WNL Labs: CBC, BMP 07/24/18 10:05 07/24/18 06:30 INR, PTT INR 1.01 (0.83-1.09) 07/08/18 16:43 Assessment/Plan - Problems (1) Elevated troponin I level Assessment/Plan: 0.02-->0.21-->0.19; normal CK EKG: sinus tachycardia; nonspecific STT changes; HR has since improved (for repeat EKG). Pt likely has demand ischemia from exacerbation of COPD, diastolic CHF, CA, tachycardia. Given pt's advanced lung CA, would recommend conservative management of cardiac condition (she is on metoprolol, statin, ASA). Code(s): R74.8 - ABNORMAL LEVELS OF OTHER SERUM ENZYMES (2) Adenocarcinoma, lung Assessment/Plan: advanced COPD and lung CA. CT chest: Rt lesion with local destruction of ribs; left stable lesion; bilateral pleural effusion. 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 Abdomnal/pelvic CT: small pleural effusions. Diverticulosis and gallstones (no acute processes). On antibiotics. s/p liver biopsy. Awaits port insertion for chemotherapy. Code(s): C34.90 - MALIGNANT NEOPLASM OF UNSP PART OF UNSP BRONCHUS OR LUNG (3) Shortness of breath Assessment/Plan: Lung CA; COPD; diastolic CHF. CT chest results noted. Code(s): R06.02 - SHORTNESS OF BREATH (4) HTN (hypertension) Assessment/Plan: On metoprolol and furosemide. Code(s): I10 - ESSENTIAL (PRIMARY) HYPERTENSION (5) Hyperlipidemia Assessment/Plan: on statin Code(s): E78.5 - HYPERLIPIDEMIA, UNSPECIFIED (6) Acute on chronic diastolic CHF (congestive heart failure) Assessment/Plan: On metoprolol and Furosemide f/u BUn/Cr, electrolytes, daily weight, Is and Os. Code(s): I50.33 - ACUTE ON CHRONIC DIASTOLIC (CONGESTIVE) HEART FAILURE (7) Thrombocytopenia Assessment/Plan: Developed during this admission; improving. Off ASA. Code(s): D69.6 - THROMBOCYTOPENIA, UNSPECIFIED (8) Leukocytosis Assessment/Plan: WBCs increasing over the past week; afebrile. F/u with hem/onc. Code(s): D72.829 - ELEVATED WHITE BLOOD CELL COUNT, UNSPECIFIED
--- NOTE | 2018-07-24 14:21 | PN ---
Progress Note, Physician History of Present Illness: pulmonary alert,feeling better,less dyspneic - Current Medication List Current Medications: Active Medications Acetaminophen (Tylenol -) 650 mg PO Q6H PRN PRN Reason: PAIN Last Admin: 07/21/18 21:42 Dose: 650 mg Albuterol Sulfate (Ventolin 0.083% Nebulizer Soln -) 1 amp NEB Q4H PRN PRN Reason: SHORT OF BREATH/WHEEZING Last Admin: 07/23/18 19:56 Dose: 1 amp Budesonide/Formoterol Fumarate (Symbicort 80/4.5mcg -) 2 puff IH BID [facility] Last Admin: 07/24/18 10:28 Dose: 2 puff Furosemide (Lasix -) 20 mg PO DAILY [facility] Last Admin: 07/24/18 10:23 Dose: 20 mg Gabapentin (Neurontin -) 100 mg PO DAILY [facility] Last Admin: 07/24/18 10:24 Dose: 100 mg Guaifenesin (Robitussin -) 10 ml PO Q6H PRN PRN Reason: COUGH Last Admin: 07/18/18 03:00 Dose: 10 ml Ceftriaxone Sodium 1 gm/ (Dextrose) 50 mls @ 100 mls/hr IVPB DAILY [facility] Last Admin: 07/24/18 10:25 Dose: 100 mls/hr Azithromycin (Zithromax 500mg Ivpb (Pre-Docked)) 500 mg in 250 mls @ 250 mls/ hr IVPB DAILY [facility] Last Admin: 07/24/18 11:14 Dose: 250 mls/hr Insulin Aspart (Novolog Vial Sliding Scale -) 1 vial SQ ACHS [facility]; Protocol Last Admin: 07/24/18 11:47 Dose: Not Given Methylprednisolone Sodium Succinate (Solu-Medrol -) 20 mg IVPB BID [facility] Last Admin: 07/24/18 10:26 Dose: 20 mg Metoprolol Tartrate (Lopressor -) 25 mg PO BID [facility] Last Admin: 07/24/18 10:23 Dose: 25 mg Pantoprazole Sodium (Protonix -) 40 mg PO DAILY [facility] Last Admin: 07/24/18 10:24 Dose: 40 mg Ranitidine HCl (Zantac -) 150 mg PO DAILY [facility] Last Admin: 07/24/18 10:25 Dose: 150 mg Rosuvastatin Calcium (Crestor -) 20 mg PO HS [facility] Last Admin: 07/23/18 22:20 Dose: 20 mg Tiotropium [place] (Spiriva Respimat) 2 puff IH DAILY [facility] Last Admin: 07/24/18 10:28 Dose: 2 puff - Objective Vital Signs: Vital Signs Temperature 97.4 F L 07/24/18 08:05 Pulse Rate 76 07/24/18 08:05 Respiratory Rate 20 07/24/18 08:05 Blood Pressure 141/71 07/24/18 08:05 O2 Sat by Pulse Oximetry (%) 100 07/24/18 09:00 Constitutional: Yes: Calm, Thin Eyes: Yes: WNL HENT: Yes: WNL Neck: Yes: WNL Cardiovascular: Yes: Regular Rate and Rhythm, S1, S2 Respiratory: Yes: Diminished Gastrointestinal: Yes: Normal Bowel Sounds, Soft Extremities: Yes: WNL Edema: No Labs: CBC, BMP 07/24/18 10:05 07/24/18 06:30 INR, PTT INR 1.01 (0.83-1.09) 07/08/18 16:43 Assessment/Plan Problem List - Problems (1) Adenocarcinoma, lung Code(s): C34.90 - MALIGNANT NEOPLASM OF UNSP PART OF UNSP BRONCHUS OR LUNG (2) ASHD (arteriosclerotic heart disease) Code(s): I25.10 - ATHSCL HEART DISEASE OF [place] CORONARY ARTERY W/O ANG PCTRS (3) Anxiety and depression Code(s): F41.9 - ANXIETY DISORDER, UNSPECIFIED; F32.9 - MAJOR DEPRESSIVE DISORDER, SINGLE EPISODE, UNSPECIFIED (4) COPD (chronic obstructive pulmonary disease) Code(s): J44.9 - CHRONIC OBSTRUCTIVE PULMONARY DISEASE, UNSPECIFIED Qualifiers: COPD type: unspecified COPD Qualified Code(s): J44.9 - Chronic obstructive pulmonary disease, unspecified (5) COPD exacerbation Code(s): J44.1 - CHRONIC OBSTRUCTIVE PULMONARY DISEASE W (ACUTE) EXACERBATION (6) Cough Code(s): R05 - COUGH (7) Diastolic CHF Code(s): I50.30 - UNSPECIFIED DIASTOLIC (CONGESTIVE) HEART FAILURE (8) HTN (hypertension) Code(s): I10 - ESSENTIAL (PRIMARY) HYPERTENSION (9) Hyperlipidemia Code(s): E78.5 - HYPERLIPIDEMIA, UNSPECIFIED (10) Hypothyroid Code(s): E03.9 - HYPOTHYROIDISM, UNSPECIFIED (11) Shortness of breath Code(s): R06.02 - SHORTNESS OF BREATH Assessment/Plan steroids O2 to maintain saturation 88% to 92% BD TX standing and PRN Spiriva VTE prophylaxis DR CARDOSO
[2018-07-24] MEDS: ALBUTEROL SO4 0.083% IH SOL 2.5 MG/3 ML VIAL.NEB. NEB PRN (19:03)
--- NOTE | 2018-07-24 19:39 | PN ---
Progress Note (short form) - Note Progress Note: Patient seen and examined Remains afebrile WBC remains elevated --13k, 18K, CXR - no obvious infiltrate Blood and urine cultures pending Will await CBC in AM and culture results re timing of port
[2018-07-24] MEDS ORDERED: ROSUVASTATIN CA 10 MG TABLET (FP) ONE (20:59)
[2018-07-24] MEDS: ROSUVASTATIN CA 20 MG TABLET (FP) PO SCH (22:12)
[2018-07-25] MEDS: INSULIN SLIDING SCALE (NOVOLOG) 1 VIAL SQ SCH ×4 (06:40→21:28)
[2018-07-25] MEDS: ALBUTEROL SO4 0.083% IH SOL 2.5 MG/3 ML VIAL.NEB. NEB PRN (07:35)
--- NOTE | 2018-07-25 08:34 | PN ---
Progress Note (short form) - Note Progress Note: Feels OK today. Needed an extra BD TX last night. Some cough persists, but better. No acute events overnight. Port held due to increasing WBC. Intake & Output 07/22/18 07/23/18 07/24/18 07/25/18 23:59 23:59 23:59 23:59 Intake Total 751 201 0800 Balance 146 601 2227 Weight 88 lb 14.4 oz 89 lb 2 oz 88 lb 8 oz 89 lb 8 oz Last Vital Signs Temp Pulse Resp BP Pulse Ox 98.4 F 77 20 142/68 98 07/25/18 07:10 07/25/18 07:10 07/25/18 07:10 07/25/18 07:10 07/24/18 21:00 Active Medications Acetaminophen (Tylenol -) 650 mg PO Q6H PRN PRN Reason: PAIN Last Admin: 07/21/18 21:42 Dose: 650 mg Albuterol Sulfate (Ventolin 0.083% Nebulizer Soln -) 1 amp NEB Q4H PRN PRN Reason: SHORT OF BREATH/WHEEZING Last Admin: 07/25/18 07:35 Dose: 1 amp Budesonide/Formoterol Fumarate (Symbicort 80/4.5mcg -) 2 puff IH BID [facility] Last Admin: 07/24/18 22:14 Dose: 2 puff Furosemide (Lasix -) 20 mg PO DAILY [facility] Last Admin: 07/24/18 10:23 Dose: 20 mg Gabapentin (Neurontin -) 100 mg PO DAILY [facility] Last Admin: 07/24/18 10:24 Dose: 100 mg Guaifenesin (Robitussin -) 10 ml PO Q6H PRN PRN Reason: COUGH Last Admin: 07/18/18 03:00 Dose: 10 ml Insulin Aspart (Novolog Vial Sliding Scale -) 1 vial SQ ACHS [facility]; Protocol Last Admin: 07/25/18 06:40 Dose: Not Given Methylprednisolone Sodium Succinate (Solu-Medrol -) 20 mg IVPB BID [facility] Last Admin: 07/24/18 22:11 Dose: 20 mg Metoprolol Tartrate (Lopressor -) 25 mg PO BID [facility] Last Admin: 07/24/18 22:12 Dose: 25 mg Pantoprazole Sodium (Protonix -) 40 mg PO DAILY [facility] Last Admin: 07/24/18 10:24 Dose: 40 mg Ranitidine HCl (Zantac -) 150 mg PO DAILY [facility] Last Admin: 07/24/18 10:25 Dose: 150 mg Rosuvastatin Calcium (Crestor -) 20 mg PO HS [facility] Last Admin: 07/24/18 22:12 Dose: 20 mg Tiotropium [place] (Spiriva Respimat) 2 puff IH DAILY [facility] Last Admin: 07/24/18 10:28 Dose: 2 puff Gen: NAD at rest Heart: RRR Lung: distant breath sounds Abd: soft, nontender Ext: no edema Laboratory Results - last 24 hr 07/24/18 07/24/18 07/24/18 06:30 10:05 11:46 WBC 18.2 H RBC 3.88 Hgb 11.3 Hct 35.0 MCV 90.1 MCH 29.1 MCHC 32.3 RDW 17.2 H Plt Count 91 L D MPV 10.1 Absolute Neuts (auto) 16.9 H Total Counted 100 Neutrophils % 92.6 H Neutrophils % (Manual) 97.0 H 95.0 H* Band Neutrophils % 0.0 Lymphocytes % 1.3 L D Lymphocytes % (Manual) 1.0 L D 1.0 L Monocytes % 5.5 D Monocytes % (Manual) 2 L D 4 Eosinophils % 0.0 Eosinophils % (Manual) 0.0 D Basophils % 0.6 D Basophils % (Manual) 0.0 Myelocytes % (Man) 0 Promyelocytes % (Man) 0 Blast Cells % (Manual) 0 Nucleated RBC % 0 Metamyelocytes 0 Hypochromia 0 Platelet Estimate Decreased Platelet Comment Present Polychromasia 0 Poikilocytosis 1+ Anisocytosis 1+ Microcytosis 1+ Macrocytosis 0 POC Glucometer 147 07/24/18 07/24/18 07/25/18 16:27 22:16 06:38 WBC RBC Hgb Hct MCV MCH MCHC RDW Plt Count MPV Absolute Neuts (auto) Total Counted Neutrophils % Neutrophils % (Manual) Band Neutrophils % Lymphocytes % Lymphocytes % (Manual) Monocytes % Monocytes % (Manual) Eosinophils % Eosinophils % (Manual) Basophils % Basophils % (Manual) Myelocytes % (Man) Promyelocytes % (Man) Blast Cells % (Manual) Nucleated RBC % Metamyelocytes Hypochromia Platelet Estimate Platelet Comment Polychromasia Poikilocytosis Anisocytosis Microcytosis Macrocytosis POC Glucometer 215 164 139 A/P Acute COPD Exacerbation NSCLC - Adenocarcinoma S/P RT LV Diastolic Dysfunction HTN Hypothyroidism Hyperlipidemia Leukocytosis: likely due to steroid effect - IV medrol: can change to Prednisone after port insertion - inhaled bronchodilators - on empiric antibiotics - O2 to keep SpO2 >90% - DVT prophylaxis - There is no Pulmonary contraindication for anticipated procedures or anesthesia Dr Carlos Problem List - Problems (1) Adenocarcinoma, lung Code(s): C34.90 - MALIGNANT NEOPLASM OF UNSP PART OF UNSP BRONCHUS OR LUNG (2) ASHD (arteriosclerotic heart disease) Code(s): I25.10 - ATHSCL HEART DISEASE OF [place] CORONARY ARTERY W/O ANG PCTRS (3) Anxiety and depression Code(s): F41.9 - ANXIETY DISORDER, UNSPECIFIED; F32.9 - MAJOR DEPRESSIVE DISORDER, SINGLE EPISODE, UNSPECIFIED (4) COPD (chronic obstructive pulmonary disease) Code(s): J44.9 - CHRONIC OBSTRUCTIVE PULMONARY DISEASE, UNSPECIFIED Qualifiers: COPD type: unspecified COPD Qualified Code(s): J44.9 - Chronic obstructive pulmonary disease, unspecified (5) COPD exacerbation Code(s): J44.1 - CHRONIC OBSTRUCTIVE PULMONARY DISEASE W (ACUTE) EXACERBATION (6) Cough Code(s): R05 - COUGH (7) Diastolic CHF Code(s): I50.30 - UNSPECIFIED DIASTOLIC (CONGESTIVE) HEART FAILURE (8) HTN (hypertension) Code(s): I10 - ESSENTIAL (PRIMARY) HYPERTENSION (9) Hyperlipidemia Code(s): E78.5 - HYPERLIPIDEMIA, UNSPECIFIED (10) Hypothyroid Code(s): E03.9 - HYPOTHYROIDISM, UNSPECIFIED (11) Shortness of breath Code(s): R06.02 - SHORTNESS OF BREATH
--- NOTE | 2018-07-25 09:29 | PN ---
Progress Note, Physician Chief Complaint: OOB to chair less SOB no pain - Current Medication List Current Medications: Active Medications Acetaminophen (Tylenol -) 650 mg PO Q6H PRN PRN Reason: PAIN Last Admin: 07/21/18 21:42 Dose: 650 mg Albuterol Sulfate (Ventolin 0.083% Nebulizer Soln -) 1 amp NEB Q4H PRN PRN Reason: SHORT OF BREATH/WHEEZING Last Admin: 07/25/18 07:35 Dose: 1 amp Budesonide/Formoterol Fumarate (Symbicort 80/4.5mcg -) 2 puff IH BID [facility] Last Admin: 07/24/18 22:14 Dose: 2 puff Furosemide (Lasix -) 20 mg PO DAILY [facility] Last Admin: 07/24/18 10:23 Dose: 20 mg Gabapentin (Neurontin -) 100 mg PO DAILY [facility] Last Admin: 07/24/18 10:24 Dose: 100 mg Guaifenesin (Robitussin -) 10 ml PO Q6H PRN PRN Reason: COUGH Last Admin: 07/18/18 03:00 Dose: 10 ml Insulin Aspart (Novolog Vial Sliding Scale -) 1 vial SQ [facility]; Protocol Last Admin: 07/25/18 06:40 Dose: Not Given Methylprednisolone Sodium Succinate (Solu-Medrol -) 20 mg IVPB BID [facility] Last Admin: 07/24/18 22:11 Dose: 20 mg Metoprolol Tartrate (Lopressor -) 25 mg PO BID [facility] Last Admin: 07/24/18 22:12 Dose: 25 mg Pantoprazole Sodium (Protonix -) 40 mg PO DAILY [facility] Last Admin: 07/24/18 10:24 Dose: 40 mg Ranitidine HCl (Zantac -) 150 mg PO DAILY [facility] Last Admin: 07/24/18 10:25 Dose: 150 mg Rosuvastatin Calcium (Crestor -) 20 mg PO [facility] Last Admin: 07/24/18 22:12 Dose: 20 mg Tiotropium [place] (Spiriva Respimat) 2 puff IH DAILY [facility] Last Admin: 07/24/18 10:28 Dose: 2 puff - Objective Vital Signs: Vital Signs Temperature 98.4 F 07/25/18 07:10 Pulse Rate 77 07/25/18 07:10 Respiratory Rate 20 07/25/18 07:10 Blood Pressure 142/68 07/25/18 07:10 O2 Sat by Pulse Oximetry (%) 98 07/24/18 21:00 Constitutional: Yes: No Distress, Calm Eyes: Yes: Conjunctiva Clear HENT: Yes: Atraumatic Neck: Yes: Supple Cardiovascular: Yes: Regular Rate and Rhythm Respiratory: Yes: Rales Gastrointestinal: Yes: Soft. No: Tenderness Genitourinary: No: CVA Tenderness - Left, CVA Tenderness - Right Musculoskeletal: No: Joint Stiffness, Joint Swelling Extremities: No: Cold, Cool, Cyanosis Edema: No Integumentary: No: Rash, Venous Stasis Changes Neurological: Yes: WNL, Alert, Oriented ...Motor Strength: WNL Psychiatric: Yes: WNL, Alert, Oriented. No: Agitated, Suicidal Ideation Labs: CBC, BMP 07/24/18 10:05 07/24/18 06:30 INR, PTT INR 1.01 (0.83-1.09) 07/08/18 16:43 - ....Imaging Other: Report Reviewed Assessment/Plan The patient is an 82 year old female with a PMH of COPD (on 2L), Stage 3a NSCC ( currently on radiation), CAD s/p CO (s/p cardiac stent x3), HTN, HLD \admitted with acute onset of shortness of breath, acute on chronic COPD exac and bronchitis iv steroids, nebs, O2 and iv antibiotics PULM, Cardiology f/u high LFT; liver mass - s/p IR liver biopsy, path c/w adenoCA metastasis from lung ONC f/u, rad tx f/u for port placement - I called IR awaiting placement heme onc f/u d/w pt and staff
--- NOTE | 2018-07-25 09:41 | PATH ---
Surgical Pathology Report Patient Name: RASHAD PALMA Med. Rec. #: [id number] /Age/Gender: 1935 (Age: 82) / F Account: [id number] Location: 4 W TELEMETRY U Taken: 07/22/2018 Received: 07/22/2018 Reported: 07/25/2018 Physicians: David Rodríguez M.D. Specimen(s) Received LIVER BIOPSY Clinical History 84 year old with right hepatic lobe mass. Patient has history of lung ca Lung CA with single right hepatic lobe mass Final Diagnosis LIVER, CORE BIOPSY: INVASIVE ADENOCARCINOMA, MODERATELY DIFFERENTIATED, WITH PAPILLARY FEATURES, CONSISTENT WITH LUNG ORIGIN. SEE COMMENT. Comment: Immunohistochemical stains performed and interpreted at [facility] show the tumor is positive for AE1/3, CK-7, and TTF-1; while negative for CK-20. Immunohistochemical stains performed at [place], [place] ([id number]) and interpreted at [facility] show the tumor is positive for Napsin A; while negative for p40. Overall immunophenotype is consistent with lung origin. Prior material from the lung is reviewed ([id number]). Findings discussed with Dr. Alcala. Electronically Signed Eunice Hammond M.D. Addendum Reported: 08/14/2018 Addendum Diagnosis PD-L1 (Clone 22C3 pharmDx(TM) kit for KEYTRUDA) performed and reported by [employer], [place], [place] (Specimen #: [id number]) shows the following: RESULTS: Tumor proportion score (TPS) results: 70% Interpretation: High Expression See [employer] report (Specimen #: [id number]) for additional details. Eunice Hammond M.D. Gross Description Received in formalin labeled "liver core BX" are 2 cylindrical fragments of soft tissue measuring 2 x 0.1 cm. The specimen is filtered entirely submitted one cassette. MLSZ/07/22/2018 sanml/07/22/2018
[2018-07-25] MEDS: BUDESONIDE/FORMETEROL FUMARATE 80/4.5 mcg INHALER IH SCH ×2 (10:20→21:23)
[2018-07-25] MEDS: TIOTROPIUM BROMIDE 2.5 MCG (SPIRIVA) RESPIMAT INHALER IH SCH (10:21)
[2018-07-25] MEDS: PANTOPRAZOLE 40 MG TABLET (FP) PO SCH (10:33)
[2018-07-25] MEDS: METOPROLOL TARTRATE 25 MG TABLET (FP) PO SCH ×2 (10:33→21:24)
[2018-07-25] MEDS: methylPREDNISolone NA SUCC 40 MG/1 ML VIAL IVPB SCH ×2 (10:33→21:24)
[2018-07-25] MEDS: GABAPENTIN 100 MG CAPSULE (FP) PO SCH (10:33)
[2018-07-25] MEDS: RANITIDINE HCL 150 MG TABLET (FP) PO SCH (10:33)
[2018-07-25] MEDS: FUROSEMIDE 20 MG TABLET (FP) PO SCH (10:33)
[2018-07-25 10:37] LABS: BASO % 0.5 % (0-2.0); HEMATOCRIT 36.6 % (32.4-45.2); HEMOGLOBIN 11.8 GM/dL (10.7-15.3); LYMPH % 1.1 % (8-40); MCH 29.3 pg (25.7-33.7); MCHC 32.3 g/dl (32.0-36.0); MEAN CELL VOLUME 90.6 fl (80-96); MEAN PLT VOLUME 10.2 fl (7.5-11.1); NEUT % 95.4 % (42.8-82.8); PLATELET COUNT 80 K/MM3 (134-434); RBC 4.04 M/mm3 (3.60-5.2); RDW 17.4 % (11.6-15.6); WHITE BLOOD COUNT 15.4 K/mm3 (4.0-10.0)
[2018-07-25 11:25] LABS: ALBUMIN 3.1 g/dl (3.4-5.0); ALK PHOS 51 U/L (45-117); ANION GAP 8 MMOL/L (8-16); BILIRUBIN,TOTAL 0.4 mg/dL (0.2-1); BLOOD UREA NITROGEN 43 mg/dL (7-18); CALCIUM 8.8 mg/dL (8.5-10.1); CHLORIDE 98 mmol/L (98-107); CO2 33 mmol/L (21-32); CREATININE 0.7 mg/dL (0.55-1.3); GLUCOSE,RANDOM 176 mg/dL (74-106); POTASSIUM 4.5 mmol/L (3.5-5.1); SGOT/AST 37 U/L (15-37); SGPT/ALT 134 U/L (13-61); SODIUM 139 mmol/L (136-145); TOT PROT 5.6 g/dl (6.4-8.2)
[2018-07-25 13:42] LABS: ANISOCYTOSIS 1+; MACROCYTOSIS 0; OVALOCYTE 1+; PLATELET ESTIMATE DECREASED
--- NOTE | 2018-07-25 20:07 | PN ---
Progress Note (short form) - Note Progress Note: Patient seen and examined Feels well AFVSS Cor: RSR, No murmurs, No gallops Lungs: Clear to P&A Abd: Soft, Normal bowel sounds, No organomegaly Ext:No significant edema Labs/meds reviewed A/P 82 y/o patient with WBC --13k, 18K, Liver biopsy c/w metastatic adenocarcinoma CXR - no obvious infiltrate Blood and urine negative for port placement
[2018-07-25] MEDS ORDERED: INSULIN (NOVOLOG) ASPART 100 UNITS/ML 10ML VIAL ONE (21:01)
[2018-07-25] MEDS ORDERED: ROSUVASTATIN CA 10 MG TABLET (FP) ONE (21:01)
[2018-07-25] MEDS: ROSUVASTATIN CA 20 MG TABLET (FP) PO SCH (21:24)
--- NOTE | 2018-07-26 01:26 | PN ---
Progress Note, Physician Chief Complaint: Pt A&Ox3; OOB in chair;mildly frustrated that procedure (catheter for chemotherapy) was delayed until tomorrow); walked in hallway with therapists' assistance. History of Present Illness: The patient is an 82 year old white female with a PMH of COPD (on 2L), Stage 3a NSCC lung cancer (currently on radiation), CAD s/p [place] (s/p cardiac stent x3), HTN, HLD was BIBEMS for acute onset of shortness of breath. Patient was completing her first radiation treatment today when she suddenly became short of breath. Denies chest pain, lightheadedness, nausea, diaphoresis. Grandson @ bedside assists in history, notes patient has been taking her Albuterol inhaler multiple times daily. Recent medication addition of Symbicort to her daily regimen. History limited as patient tachycardic, tachypneic @ presentation. NKDA Surgical: Cardiac Stent x3, lung biopsy PMD: Dr. Mary Beth Stein Cardiology: Dr. Bah Pulmonology: Dr. Kern/Dr. Velazquez - Current Medication List Current Medications: Active Medications Acetaminophen (Tylenol -) 650 mg PO Q6H PRN PRN Reason: PAIN Last Admin: 07/21/18 21:42 Dose: 650 mg Albuterol Sulfate (Ventolin 0.083% Nebulizer Soln -) 1 amp NEB Q4H PRN PRN Reason: SHORT OF BREATH/WHEEZING Last Admin: 07/25/18 07:35 Dose: 1 amp Budesonide/Formoterol Fumarate (Symbicort 80/4.5mcg -) 2 puff IH BID [facility] Last Admin: 07/25/18 21:23 Dose: 2 puff Furosemide (Lasix -) 20 mg PO DAILY [facility] Last Admin: 07/25/18 10:33 Dose: 20 mg Gabapentin (Neurontin -) 100 mg PO DAILY [facility] Last Admin: 07/25/18 10:33 Dose: 100 mg Guaifenesin (Robitussin -) 10 ml PO Q6H PRN PRN Reason: COUGH Last Admin: 07/18/18 03:00 Dose: 10 ml Insulin Aspart (Novolog Vial Sliding Scale -) 1 vial SQ ACHS [facility]; Protocol Last Admin: 07/25/18 21:28 Dose: 2 units Methylprednisolone Sodium Succinate (Solu-Medrol -) 20 mg IVPB BID [facility] Last Admin: 07/25/18 21:24 Dose: 20 mg Metoprolol Tartrate (Lopressor -) 25 mg PO BID [facility] Last Admin: 07/25/18 21:24 Dose: 25 mg Pantoprazole Sodium (Protonix -) 40 mg PO DAILY [facility] Last Admin: 07/25/18 10:33 Dose: 40 mg Ranitidine HCl (Zantac -) 150 mg PO DAILY [facility] Last Admin: 07/25/18 10:33 Dose: 150 mg Rosuvastatin Calcium (Crestor -) 20 mg PO HS [facility] Last Admin: 07/25/18 21:24 Dose: 20 mg Tiotropium [place] (Spiriva Respimat) 2 puff IH DAILY [facility] Last Admin: 07/25/18 10:21 Dose: 2 puff - Objective Vital Signs: Vital Signs Temperature 98.2 F 07/25/18 20:36 Pulse Rate 80 07/25/18 20:36 Respiratory Rate 20 07/25/18 20:36 Blood Pressure 141/68 07/25/18 20:36 O2 Sat by Pulse Oximetry (%) 100 07/25/18 09:00 Constitutional: Yes: Anxious, Thin Eyes: Yes: WNL HENT: Yes: WNL Neck: Yes: WNL Cardiovascular: Yes: Tachycardia, S1, S2 Respiratory: Yes: Diminished Gastrointestinal: Yes: Soft ...Rectal Exam: Yes: Deferred Genitourinary: No: Anuria Breast(s): Yes: WNL Musculoskeletal: Yes: Muscle Weakness Extremities: Yes: Cool Edema: No Peripheral Pulses WNL: Yes Integumentary: Yes: WNL Neurological: Yes: Alert, Oriented, Weakness Psychiatric: Yes: Other (anxiety/depression) Labs: CBC, BMP 07/25/18 10:10 07/25/18 10:10 INR, PTT INR 1.01 (0.83-1.09) 07/08/18 16:43 Abnormal Lab Results 07/30/18 07/30/18 06:30 06:30 WBC 13.1 H RBC 3.37 L Hgb 10.0 L Hct 30.1 L RDW 17.5 H Plt Count 54 L Absolute Neuts (auto) 12.8 H Neutrophils % 97.9 H Neutrophils % (Manual) 99.0 H Lymphocytes % 1.0 L D Lymphocytes % (Manual) 1.0 L Monocytes % 1.0 L Monocytes % (Manual) 0 L Carbon Dioxide 36 H Anion Gap 6 L BUN 43 H Random Glucose 193 H ALT 82 H Total Protein 5.5 L Albumin 3.0 L Problem List - Problems (1) Elevated troponin I level Assessment/Plan: 0.02-->0.21-->0.19; normal CK EKG: sinus tachycardia; nonspecific STT changes; HR has since improved (for repeat EKG). Pt likely has demand ischemia from exacerbation of COPD, diastolic CHF, CA, tachycardia. Given pt's advanced lung CA, would recommend conservative management of cardiac condition (she is on metoprolol, statin, ASA). Code(s): R74.8 - ABNORMAL LEVELS OF OTHER SERUM ENZYMES (2) Adenocarcinoma, lung Assessment/Plan: advanced COPD and lung CA. CT chest: Rt lesion with local destruction of ribs; left stable lesion; bilateral pleural effusion. F/u with oncologist, publications inspector. Abdomnal/pelvic CT: small pleural effusions. Diverticulosis and gallstones (no acute processes). On antibiotics. s/p liver biopsy. Awaits port insertion for chemotherapy. Code(s): C34.90 - MALIGNANT NEOPLASM OF UNSP PART OF UNSP BRONCHUS OR LUNG (3) Shortness of breath Assessment/Plan: Lung CA; COPD; diastolic CHF. CT chest results noted. Code(s): R06.02 - SHORTNESS OF BREATH (4) HTN (hypertension) Assessment/Plan: On metoprolol and furosemide. Code(s): I10 - ESSENTIAL (PRIMARY) HYPERTENSION (5) Hyperlipidemia Assessment/Plan: on statin Code(s): E78.5 - HYPERLIPIDEMIA, UNSPECIFIED (6) Acute on chronic diastolic CHF (congestive heart failure) Assessment/Plan: On metoprolol and Furosemide f/u BUn/Cr, electrolytes, daily weight, Is and Os. Code(s): I50.33 - ACUTE ON CHRONIC DIASTOLIC (CONGESTIVE) HEART FAILURE (7) Thrombocytopenia Assessment/Plan: Developed during this admission. Off ASA. Code(s): D69.6 - THROMBOCYTOPENIA, UNSPECIFIED (8) Leukocytosis Assessment/Plan: WBCs increasing over the past week; afebrile. F/u with hem/onc. Code(s): D72.829 - ELEVATED WHITE BLOOD CELL COUNT, UNSPECIFIED
[2018-07-26] MEDS ORDERED: ACETAMINOPHEN 325 MG TABLET (FP) PO ONE (05:53)
[2018-07-26] MEDS: INSULIN SLIDING SCALE (NOVOLOG) 1 VIAL SQ SCH ×4 (06:18→21:37)
[2018-07-26] MEDS: ALBUTEROL SO4 0.083% IH SOL 2.5 MG/3 ML VIAL.NEB. NEB PRN ×2 (06:33→19:44)
[2018-07-26] MEDS ORDERED: PT OWN MED DRAWER 7, Y5N ONE (09:48)
[2018-07-26] MEDS: GABAPENTIN 100 MG CAPSULE (FP) PO SCH (09:50)
[2018-07-26] MEDS: methylPREDNISolone NA SUCC 40 MG/1 ML VIAL IVPB SCH (09:50)
[2018-07-26] MEDS: FUROSEMIDE 20 MG TABLET (FP) PO SCH (09:50)
[2018-07-26] MEDS: PANTOPRAZOLE 40 MG TABLET (FP) PO SCH (09:50)
[2018-07-26] MEDS: METOPROLOL TARTRATE 25 MG TABLET (FP) PO SCH ×2 (09:50→21:31)
[2018-07-26] MEDS: RANITIDINE HCL 150 MG TABLET (FP) PO SCH (09:50)
[2018-07-26] MEDS: TIOTROPIUM BROMIDE 2.5 MCG (SPIRIVA) RESPIMAT INHALER IH SCH (09:51)
[2018-07-26] MEDS: BUDESONIDE/FORMETEROL FUMARATE 80/4.5 mcg INHALER IH SCH ×2 (09:51→21:32)
--- NOTE | 2018-07-26 10:09 | PN ---
Progress Note (short form) - Note Progress Note: Awaiting HemeOnc and ID as to when we can place chemoport. Vascular Team on stand-by.
--- NOTE | 2018-07-26 10:30 | PN ---
Progress Note, Physician Chief Complaint: awaiting port placement; feels a little better - Current Medication List Current Medications: Active Medications Acetaminophen (Tylenol -) 650 mg PO Q6H PRN PRN Reason: PAIN Last Admin: 07/21/18 21:42 Dose: 650 mg Albuterol Sulfate (Ventolin 0.083% Nebulizer Soln -) 1 amp NEB Q4H PRN PRN Reason: SHORT OF BREATH/WHEEZING Last Admin: 07/26/18 06:33 Dose: 1 amp Budesonide/Formoterol Fumarate (Symbicort 80/4.5mcg -) 2 puff IH BID [facility] Last Admin: 07/26/18 09:51 Dose: 2 puff Furosemide (Lasix -) 20 mg PO DAILY [facility] Last Admin: 07/26/18 09:50 Dose: 20 mg Gabapentin (Neurontin -) 100 mg PO DAILY [facility] Last Admin: 07/26/18 09:50 Dose: 100 mg Guaifenesin (Robitussin -) 10 ml PO Q6H PRN PRN Reason: COUGH Last Admin: 07/18/18 03:00 Dose: 10 ml Insulin Aspart (Novolog Vial Sliding Scale -) 1 vial SQ [facility]; Protocol Last Admin: 07/26/18 06:18 Dose: Not Given Methylprednisolone Sodium Succinate (Solu-Medrol -) 20 mg IVPB BID [facility] Last Admin: 07/26/18 09:50 Dose: 20 mg Metoprolol Tartrate (Lopressor -) 25 mg PO BID [facility] Last Admin: 07/26/18 09:50 Dose: 25 mg Pantoprazole Sodium (Protonix -) 40 mg PO DAILY [facility] Last Admin: 07/26/18 09:50 Dose: 40 mg Ranitidine HCl (Zantac -) 150 mg PO DAILY [facility] Last Admin: 07/26/18 09:50 Dose: 150 mg Rosuvastatin Calcium (Crestor -) 20 mg PO HS [facility] Last Admin: 07/25/18 21:24 Dose: 20 mg Tiotropium [place] (Spiriva Respimat) 2 puff IH DAILY [facility] Last Admin: 07/26/18 09:51 Dose: 2 puff - Objective Vital Signs: Vital Signs Temperature 97.4 F L 07/26/18 07:02 Pulse Rate 75 07/26/18 07:02 Respiratory Rate 20 07/26/18 07:02 Blood Pressure 147/69 07/26/18 07:02 O2 Sat by Pulse Oximetry (%) 97 07/25/18 21:00 Constitutional: Yes: No Distress, Calm Eyes: Yes: Conjunctiva Clear HENT: Yes: Atraumatic Neck: Yes: Supple Cardiovascular: Yes: Regular Rate and Rhythm Respiratory: Yes: Wheezes (few) Gastrointestinal: Yes: Soft. No: Tenderness Genitourinary: No: CVA Tenderness - Left, CVA Tenderness - Right Musculoskeletal: No: Joint Stiffness, Joint Swelling Extremities: No: Cold, Cool Edema: No Integumentary: No: Rash, Venous Stasis Changes Neurological: Yes: WNL, Alert, Oriented ...Motor Strength: WNL Psychiatric: Yes: WNL, Alert, Oriented. No: Agitated, Suicidal Ideation Labs: CBC, BMP 07/25/18 10:10 07/25/18 10:10 INR, PTT INR 1.01 (0.83-1.09) 07/08/18 16:43 - ....Imaging Other: Report Reviewed Assessment/Plan The patient is an 82 year old female with a PMH of COPD (on 2L), Stage 3a NSCC ( currently on radiation), CAD s/p KS (s/p cardiac stent x3), HTN, HLD \admitted with acute onset of shortness of breath, acute on chronic COPD exac and bronchitis iv steroids, nebs, O2 and iv antibiotics PULM, Cardiology f/u high LFT; liver mass - s/p IR liver biopsy, path c/w adenoCA metastasis from lung ONC f/u, rad tx f/u for port placement heme onc f/u d/w pt and staff
--- NOTE | 2018-07-26 16:18 | PN ---
Progress Note (short form) - Note Progress Note: PULMONARY OOB TO CHAIR USING NEB HAD PORT PLACED TODAY UPSET OVER DAUGHTER'S RECENT DIAGNOSIS OF COLON CANCER VSS/afebrile Gen: NAD at rest Heart: RRR Lung: distant breath sounds Abd: soft, nontender Ext: no edema CHART REVIEWED A/P Acute COPD Exacerbation s/p RT session NSCLC - Adenocarcinoma mets to rib/liver LV Diastolic Dysfunction HTN Hypothyroidism Hyperlipidemia - medrol change to prednisone - inhaled bronchodilators - on empiric antibiotics - O2 to keep SpO2 >90% - rehab/PT - DVT prophylaxis - onco f/u R ANNA MORRISON
[2018-07-26 16:50] VITALS: BMI 16.2
[2018-07-26] MEDS: predniSONE 20 MG TABLET (UD) PO SCH (16:57)
--- NOTE | 2018-07-26 19:14 | PN ---
Progress Note, Physician Chief Complaint: Pt A&Ox3; less dyspneic; no chest pain. History of Present Illness: The patient is an 82 year old white female with a PMH of COPD (on 2L), Stage 3a NSCC lung cancer (currently on radiation), CAD s/p [place] (s/p cardiac stent x3), HTN, HLD was BIBEMS for acute onset of shortness of breath. Patient was completing her first radiation treatment today when she suddenly became short of breath. Denies chest pain, lightheadedness, nausea, diaphoresis. Grandson @ bedside assists in history, notes patient has been taking her Albuterol inhaler multiple times daily. Recent medication addition of Symbicort to her daily regimen. History limited as patient tachycardic, tachypneic @ presentation. NKDA Surgical: Cardiac Stent x3, lung biopsy PMD: Dr. Mary Beth Stein Cardiology: Dr. Bah Pulmonology: Dr. Kern/Dr. Velazquez - Current Medication List Current Medications: Active Medications Acetaminophen (Tylenol -) 650 mg PO Q6H PRN PRN Reason: PAIN Last Admin: 07/21/18 21:42 Dose: 650 mg Albuterol Sulfate (Ventolin 0.083% Nebulizer Soln -) 1 amp NEB Q4H PRN PRN Reason: SHORT OF BREATH/WHEEZING Last Admin: 07/26/18 06:33 Dose: 1 amp Budesonide/Formoterol Fumarate (Symbicort 80/4.5mcg -) 2 puff IH BID COUNT [facility]CLUD[facility] Last Admin: 07/26/18 09:51 Dose: 2 puff Furosemide (Lasix -) 20 mg PO DAILY [facility] Last Admin: 07/26/18 09:50 Dose: 20 mg Gabapentin (Neurontin -) 100 mg PO DAILY [facility] Last Admin: 07/26/18 09:50 Dose: 100 mg Guaifenesin (Robitussin -) 10 ml PO Q6H PRN PRN Reason: COUGH Last Admin: 07/18/18 03:00 Dose: 10 ml Insulin Aspart (Novolog Vial Sliding Scale -) 1 vial SQ ACHS [facility]; Protocol Last Admin: 07/26/18 17:04 Dose: 2 units Metoprolol Tartrate (Lopressor -) 25 mg PO BID [facility] Last Admin: 07/26/18 09:50 Dose: 25 mg Pantoprazole Sodium (Protonix -) 40 mg PO DAILY [facility] Last Admin: 07/26/18 09:50 Dose: 40 mg Prednisone (Deltasone -) 20 mg PO DAILY [facility] Last Admin: 07/26/18 16:57 Dose: 20 mg Ranitidine HCl (Zantac -) 150 mg PO DAILY [facility] Last Admin: 07/26/18 09:50 Dose: 150 mg Rosuvastatin Calcium (Crestor -) 20 mg PO HS [facility] Last Admin: 07/25/18 21:24 Dose: 20 mg Tiotropium [place] (Spiriva Respimat) 2 puff IH DAILY [facility] Last Admin: 07/26/18 09:51 Dose: 2 puff - Objective Vital Signs: Vital Signs Temperature 97.6 F 07/26/18 10:00 Pulse Rate 72 07/26/18 13:44 Respiratory Rate 24 H 07/26/18 13:44 Blood Pressure 150/73 07/26/18 13:44 O2 Sat by Pulse Oximetry (%) 100 07/26/18 13:44 Constitutional: Yes: Calm Eyes: Yes: WNL HENT: Yes: WNL Neck: Yes: WNL Cardiovascular: Yes: Pulse Irregular Respiratory: Yes: SOB on Exertion, Tachypnea Gastrointestinal: Yes: Soft ...Rectal Exam: Yes: Deferred Genitourinary: No: Anuria Breast(s): Yes: WNL Musculoskeletal: Yes: Muscle Weakness Extremities: Yes: Cool Edema: No Peripheral Pulses WNL: Yes Integumentary: Yes: WNL Neurological: Yes: Alert, Oriented, Weakness Psychiatric: Yes: Alert, Oriented Labs: CBC, BMP 07/25/18 10:10 07/25/18 10:10 INR, PTT INR 1.01 (0.83-1.09) 07/08/18 16:43 Abnormal Lab Results 07/30/18 07/30/18 07/30/18 06:30 06:30 13:00 WBC 13.1 H RBC 3.37 L Hgb 10.0 L Hct 30.1 L RDW 17.5 H Plt Count 54 L Absolute Neuts (auto) 12.8 H Neutrophils % 97.9 H Neutrophils % (Manual) 99.0 H Lymphocytes % 1.0 L D Lymphocytes % (Manual) 1.0 L Monocytes % 1.0 L Monocytes % (Manual) 0 L Carbon Dioxide 36 H Anion Gap 6 L BUN 43 H Random Glucose 193 H 351 H* ALT 82 H Total Protein 5.5 L Albumin 3.0 L Problem List - Problems (1) Elevated troponin I level Assessment/Plan: 0.02-->0.21-->0.19; normal CK EKG: sinus tachycardia; nonspecific STT changes; HR has since improved. Pt likely has demand ischemia from exacerbation of COPD, diastolic CHF, CA, tachycardia. Given pt's advanced lung CA, would recommend conservative management of cardiac condition (she is on metoprolol, statin, ASA). Code(s): R74.8 - ABNORMAL LEVELS OF OTHER SERUM ENZYMES (2) Adenocarcinoma, lung Assessment/Plan: bone and liver metastases. F/u with hem/onc. Code(s): C34.90 - MALIGNANT NEOPLASM OF UNSP PART OF UNSP BRONCHUS OR LUNG (3) Shortness of breath Assessment/Plan: Lung CA with mets; COPD; diastolic CHF. Pulmonary medication regimen per engineer steam. Code(s): R06.02 - SHORTNESS OF BREATH (4) HTN (hypertension) Assessment/Plan: On metoprolol and furosemide. Code(s): I10 - ESSENTIAL (PRIMARY) HYPERTENSION (5) Hyperlipidemia Assessment/Plan: on statin Code(s): E78.5 - HYPERLIPIDEMIA, UNSPECIFIED (6) Acute on chronic diastolic CHF (congestive heart failure) Code(s): I50.33 - ACUTE ON CHRONIC DIASTOLIC (CONGESTIVE) HEART FAILURE (7) Thrombocytopenia Code(s): D69.6 - THROMBOCYTOPENIA, UNSPECIFIED (8) Leukocytosis Code(s): D72.829 - ELEVATED WHITE BLOOD CELL COUNT, UNSPECIFIED
[2018-07-26] MEDS ORDERED: ROSUVASTATIN CA 10 MG TABLET (FP) ONE (21:21)
[2018-07-26] MEDS: ROSUVASTATIN CA 20 MG TABLET (FP) PO SCH (21:31)
--- NOTE | 2018-07-27 05:58 | PN ---
Progress Note, Physician Chief Complaint: has some L sided CP and SOB better with nebs; is off sq heparin for 5 days ( since liver biopsy) sp port placement yesterday will check chest CT with IVC r/o PE; d/w pt possible renal SE with IVC (creat NL now) to increase po fluids and will f/u labs also d/w cardio dr Palma - Current Medication List Current Medications: Active Medications Acetaminophen (Tylenol -) 650 mg PO Q6H PRN PRN Reason: PAIN Last Admin: 07/21/18 21:42 Dose: 650 mg Albuterol Sulfate (Ventolin 0.083% Nebulizer Soln -) 1 amp NEB Q4H PRN PRN Reason: SHORT OF BREATH/WHEEZING Last Admin: 07/26/18 19:44 Dose: 1 amp Alprazolam (Xanax -) 0.25 mg PO Q8H PRN PRN Reason: ANXIETY Budesonide/Formoterol Fumarate (Symbicort 80/4.5mcg -) 2 puff IH BID [facility] Last Admin: 07/26/18 21:32 Dose: 2 puff Furosemide (Lasix -) 20 mg PO DAILY [facility] Last Admin: 07/26/18 09:50 Dose: 20 mg Gabapentin (Neurontin -) 100 mg PO DAILY [facility] Last Admin: 07/26/18 09:50 Dose: 100 mg Guaifenesin (Robitussin -) 10 ml PO Q6H PRN PRN Reason: COUGH Last Admin: 07/18/18 03:00 Dose: 10 ml Insulin Aspart (Novolog Vial Sliding Scale -) 1 vial SQ [facility]; Protocol Last Admin: 07/26/18 21:37 Dose: 2 units Metoprolol Tartrate (Lopressor -) 25 mg PO BID [facility] Last Admin: 07/26/18 21:31 Dose: 25 mg Pantoprazole Sodium (Protonix -) 40 mg PO DAILY [facility] Last Admin: 07/26/18 09:50 Dose: 40 mg Prednisone (Deltasone -) 20 mg PO DAILY [facility] Last Admin: 07/26/18 16:57 Dose: 20 mg Ranitidine HCl (Zantac -) 150 mg PO DAILY [facility] Last Admin: 07/26/18 09:50 Dose: 150 mg Rosuvastatin Calcium (Crestor -) 20 mg PO HS [facility] Last Admin: 07/26/18 21:31 Dose: 20 mg Tiotropium [place] (Spiriva Respimat) 2 puff IH DAILY [facility] Last Admin: 07/26/18 09:51 Dose: 2 puff - Objective Vital Signs: Vital Signs Temperature 97.8 F 07/26/18 22:00 Pulse Rate 88 07/26/18 22:00 Respiratory Rate 22 H 07/26/18 22:00 Blood Pressure 149/55 L 07/26/18 22:00 O2 Sat by Pulse Oximetry (%) 94 L 07/26/18 21:00 Constitutional: Yes: No Distress Eyes: Yes: Conjunctiva Clear HENT: Yes: Atraumatic Neck: Yes: Supple Cardiovascular: Yes: Regular Rate and Rhythm Respiratory: Yes: Rales Gastrointestinal: Yes: Soft. No: Tenderness Genitourinary: No: Hematuria Musculoskeletal: No: Joint Stiffness, Joint Swelling Extremities: No: Calf Tenderness, Cold, Cool Edema: No Integumentary: No: Rash, Venous Stasis Changes Neurological: Yes: WNL, Alert, Oriented ...Motor Strength: WNL Psychiatric: Yes: WNL, Alert, Oriented. No: Agitated, Suicidal Ideation Labs: CBC, BMP 07/25/18 10:10 07/25/18 10:10 INR, PTT INR 1.01 (0.83-1.09) 07/08/18 16:43 - ....Imaging Other: Report Reviewed Assessment/Plan The patient is an 82 year old female with a PMH of COPD (on 2L), Stage 3a NSCC ( currently on radiation), CAD s/p [place] (s/p cardiac stent x3), HTN, HLD \admitted with acute onset of shortness of breath, acute on chronic COPD exac and bronchitis L sided CP r/o PE/PNA; check chest CT with IVC iv steroids, nebs, O2 and iv antibiotics PULM, Cardiology f/u high LFT; liver mass - s/p IR liver biopsy, path c/w adenoCA metastasis from lung ONC f/u, rad tx f/u s/p port placement - chemotx per ONC DVT pfx restart sq lovenox d/w pt and staff d/w moody Costa
[2018-07-27] MEDS: INSULIN SLIDING SCALE (NOVOLOG) 1 VIAL SQ SCH ×4 (06:28→21:39)
[2018-07-27] MEDS: ALBUTEROL SO4 0.083% IH SOL 2.5 MG/3 ML VIAL.NEB. NEB PRN ×2 (06:59→20:35)
[2018-07-27 07:46] LABS: EOS % 0.1 % (0-4.5); HEMATOCRIT 35.4 % (32.4-45.2); HEMOGLOBIN 11.8 GM/dL (10.7-15.3); LYMPH % 1.8 % (8-40); MCH 29.6 pg (25.7-33.7); MCHC 33.3 g/dl (32.0-36.0); MEAN CELL VOLUME 88.9 fl (80-96); MEAN PLT VOLUME 10.7 fl (7.5-11.1); MONO % 5.1 % (3.8-10.2); PLATELET COUNT 84 K/MM3 (134-434); RBC 3.98 M/mm3 (3.60-5.2); WHITE BLOOD COUNT 15.5 K/mm3 (4.0-10.0)
[2018-07-27 08:22] LABS: ALBUMIN 3.4 g/dl (3.4-5.0); ALK PHOS 68 U/L (45-117); ANION GAP 7 MMOL/L (8-16); BILIRUBIN,TOTAL 0.5 mg/dL (0.2-1); BLOOD UREA NITROGEN 44 mg/dL (7-18); CALCIUM 8.9 mg/dL (8.5-10.1); CHLORIDE 100 mmol/L (98-107); CO2 32 mmol/L (21-32); CREATININE 0.8 mg/dL (0.55-1.3); GLUCOSE,RANDOM 97 mg/dL (74-106); POTASSIUM 4.4 mmol/L (3.5-5.1); SGOT/AST 28 U/L (15-37); SGPT/ALT 118 U/L (13-61); SODIUM 139 mmol/L (136-145)
[2018-07-27] MEDS: GABAPENTIN 100 MG CAPSULE (FP) PO SCH (10:26)
[2018-07-27] MEDS: RANITIDINE HCL 150 MG TABLET (FP) PO SCH (10:26)
[2018-07-27] MEDS: METOPROLOL TARTRATE 25 MG TABLET (FP) PO SCH ×2 (10:26→21:38)
[2018-07-27] MEDS: predniSONE 20 MG TABLET (UD) PO SCH (10:26)
[2018-07-27] MEDS: ENOXAPARIN NA (PORCINE) 40 MG/0.4 ML DISP.SYRIN SQ SCH (10:26)
[2018-07-27] MEDS: BUDESONIDE/FORMETEROL FUMARATE 80/4.5 mcg INHALER IH SCH ×2 (10:26→21:40)
[2018-07-27] MEDS: PANTOPRAZOLE 40 MG TABLET (FP) PO SCH (10:26)
[2018-07-27] MEDS: TIOTROPIUM BROMIDE 2.5 MCG (SPIRIVA) RESPIMAT INHALER IH SCH (10:27)
[2018-07-27] MEDS: FUROSEMIDE 20 MG TABLET (FP) PO SCH (10:27)
--- NOTE | 2018-07-27 10:27 | PN ---
Progress Note, Physician Chief Complaint: Coverage for Bonifacioi She is having chest discomfort, left sided with deep breathing- sharp pain. Subsided earlier for a period of time after neb treatment. Now has recurred. CXR yest no PTX Case d/w Dr. Stein, CTA chest planned r/o PE. ECG done, reviewed. NSR 83bpm. Cannot r/o old IWMI, no change when compared to previous 07/19 History of Present Illness: Cardiac enzymes x 3 pending 1st set normal CK, Borderline elevated TnI, but had borderline elevated TnI previously (reviewing chart) - Current Medication List Current Medications: Active Medications Acetaminophen (Tylenol -) 650 mg PO Q6H PRN PRN Reason: PAIN Last Admin: 07/21/18 21:42 Dose: 650 mg Albuterol Sulfate (Ventolin 0.083% Nebulizer Soln -) 1 amp NEB Q4H PRN PRN Reason: SHORT OF BREATH/WHEEZING Last Admin: 07/27/18 06:59 Dose: 1 amp Alprazolam (Xanax -) 0.25 mg PO Q8H PRN PRN Reason: ANXIETY Budesonide/Formoterol Fumarate (Symbicort 80/4.5mcg -) 2 puff IH BID [facility] Last Admin: 07/27/18 10:26 Dose: 2 puff Enoxaparin Sodium (Lovenox -) 40 mg SQ DAILY [facility] Last Admin: 07/27/18 10:26 Dose: 40 mg Furosemide (Lasix -) 20 mg PO DAILY [facility] Last Admin: 07/27/18 10:27 Dose: 20 mg Gabapentin (Neurontin -) 100 mg PO DAILY [facility] Last Admin: 07/27/18 10:26 Dose: 100 mg Guaifenesin (Robitussin -) 10 ml PO Q6H PRN PRN Reason: COUGH Last Admin: 07/18/18 03:00 Dose: 10 ml Insulin Aspart (Novolog Vial Sliding Scale -) 1 vial SQ [facility]; Protocol Last Admin: 07/27/18 06:28 Dose: Not Given Metoprolol Tartrate (Lopressor -) 25 mg PO BID [facility] Last Admin: 07/27/18 10:26 Dose: 25 mg Pantoprazole Sodium (Protonix -) 40 mg PO DAILY [facility] Last Admin: 07/27/18 10:26 Dose: 40 mg Prednisone (Deltasone -) 20 mg PO DAILY [facility] Last Admin: 07/27/18 10:26 Dose: 20 mg Ranitidine HCl (Zantac -) 150 mg PO DAILY [facility] Last Admin: 07/27/18 10:26 Dose: 150 mg Rosuvastatin Calcium (Crestor -) 20 mg PO HS [facility] Last Admin: 07/26/18 21:31 Dose: 20 mg Tiotropium [place] (Spiriva Respimat) 2 puff IH DAILY [facility] Last Admin: 07/27/18 10:27 Dose: 2 puff - Objective Vital Signs: Vital Signs Temperature 97.5 F L 07/27/18 08:29 Pulse Rate 75 07/27/18 08:29 Respiratory Rate 14 07/27/18 08:29 Blood Pressure 108/68 07/27/18 08:29 O2 Sat by Pulse Oximetry (%) 94 L 07/26/18 21:00 Constitutional: Yes: No Distress, Calm Cardiovascular: Yes: Regular Rate and Rhythm Respiratory: Yes: Other (bilateral rhonchi. Decreased breath sounds at bases. No active wheezing; breath sounds = b/l) Gastrointestinal: Yes: Soft (nontender) Edema: Yes Edema: LLE: 1+, RLE: 1+ Neurological: Yes: Alert, Oriented Labs: CBC, BMP 07/27/18 07:00 07/27/18 07:00 INR, PTT INR 1.01 (0.83-1.09) 07/08/18 16:43 Microbiology 07/23/18 21:00 Blood - Peripheral Venous Blood Culture - Preliminary NO GROWTH OBTAINED AFTER 72 HOURS, INCUBATION TO CONTINUE FOR 2 DAYS. 07/23/18 21:00 Blood - Peripheral Venous Blood Culture - Preliminary NO GROWTH OBTAINED AFTER 72 HOURS, INCUBATION TO CONTINUE FOR 2 DAYS. Laboratory Tests 07/27/18 07/27/18 07:00 07:00 WBC 15.5 H Hgb 11.8 Plt Count 84 L Sodium 139 Potassium 4.4 BUN 44 H Creatinine 0.8 AST 28 Troponin I 0.14 H - ....Imaging X-ray: Report Reviewed, Image Reviewed EKG: Report Reviewed, Image Reviewed Assessment/Plan IMPRESSION: Acute COPD Exacerbation s/p RT session NSCLC - Adenocarcinoma mets to rib/liver LV Diastolic Dysfunction HTN Hypothyroidism Hyperlipidemia Pleuritic CP may be secondary to underlying malignancy vs recent port placement vs musculoskeletal. R/o PE. REC: Agree with chest CTA to rule out PE. Serial cardiac enzymes. Repeat ECG done, no change. Will follow. Case d/w Dr. Stein. Weekend coverage for Dr. Ortiz
[2018-07-27 11:57] LABS: ANISOCYTOSIS 1+; MACROCYTOSIS 0; OVALOCYTE 1+; PLATELET ESTIMATE DECREASED
--- NOTE | 2018-07-27 12:47 | EKG ---
Test Reason : Blood Pressure : / mmHG Vent. Rate : 083 BPM Atrial Rate : 083 BPM P-R Int : 106 ms QRS Dur : 088 ms QT Int : 374 ms P-R-T Axes : 078 043 009 degrees QTc Int : 439 ms SINUS RHYTHM WITH SHORT MD POSSIBLE INFERIOR INFARCT , AGE UNDETERMINED ABNORMAL ECG WHEN COMPARED WITH ECG OF 19-JUL-2018 09:24, NO SIGNIFICANT CHANGE WAS FOUND Confirmed by ELVIE GUSTAFSON MD ([id number]) on 07/27/2018 12:46:53 PM Referred By: Confirmed By:ELVEI GUSTAFSON MD
--- NOTE | 2018-07-27 13:46 | PN ---
Progress Note (short form) - Note Progress Note: PULMONARY OOB TO CHAIR USING NEB HAD PORT PLACED FOR CHEMO VSS/afebrile Gen: NAD at rest Heart: RRR Lung: distant breath sounds Abd: soft, nontender Ext: no edema CHART REVIEWED A/P Acute COPD Exacerbation s/p RT session NSCLC - Adenocarcinoma mets to rib/liver LV Diastolic Dysfunction HTN Hypothyroidism Hyperlipidemia - prednisone - inhaled bronchodilators - on empiric antibiotics - O2 to keep SpO2 >90% - rehab/PT - DVT prophylaxis - onco f/u Rashi CASTILLO MD
--- NOTE | 2018-07-27 14:23 | PN ---
Progress Note, Physician Chief Complaint: shortness of breath History of Present Illness: Still with left sided chest pain, mostly on deep inspiration. Endorses cough productive of clear sputum - Current Medication List Current Medications: Active Medications Acetaminophen (Tylenol -) 650 mg PO Q6H PRN PRN Reason: PAIN Last Admin: 07/21/18 21:42 Dose: 650 mg Albuterol Sulfate (Ventolin 0.083% Nebulizer Soln -) 1 amp NEB Q4H PRN PRN Reason: SHORT OF BREATH/WHEEZING Last Admin: 07/27/18 06:59 Dose: 1 amp Alprazolam (Xanax -) 0.25 mg PO Q8H PRN PRN Reason: ANXIETY Budesonide/Formoterol Fumarate (Symbicort 80/4.5mcg -) 2 puff IH BID [facility] Last Admin: 07/27/18 10:26 Dose: 2 puff Enoxaparin Sodium (Lovenox -) 40 mg SQ DAILY [facility] Last Admin: 07/27/18 10:26 Dose: 40 mg Furosemide (Lasix -) 20 mg PO DAILY [facility] Last Admin: 07/27/18 10:27 Dose: 20 mg Gabapentin (Neurontin -) 100 mg PO DAILY [facility] Last Admin: 07/27/18 10:26 Dose: 100 mg Guaifenesin (Robitussin -) 10 ml PO Q6H PRN PRN Reason: COUGH Last Admin: 07/18/18 03:00 Dose: 10 ml Insulin Aspart (Novolog Vial Sliding Scale -) 1 vial SQ [facility]; Protocol Last Admin: 07/27/18 12:56 Dose: Not Given Metoprolol Tartrate (Lopressor -) 25 mg PO BID [facility] Last Admin: 07/27/18 10:26 Dose: 25 mg Pantoprazole Sodium (Protonix -) 40 mg PO DAILY [facility] Last Admin: 07/27/18 10:26 Dose: 40 mg Prednisone (Deltasone -) 20 mg PO DAILY [facility] Last Admin: 07/27/18 10:26 Dose: 20 mg Ranitidine HCl (Zantac -) 150 mg PO DAILY [facility] Last Admin: 07/27/18 10:26 Dose: 150 mg Rosuvastatin Calcium (Crestor -) 20 mg PO HS [facility] Last Admin: 07/26/18 21:31 Dose: 20 mg Tiotropium [place] (Spiriva Respimat) 2 puff IH DAILY [facility] Last Admin: 07/27/18 10:27 Dose: 2 puff - Objective Vital Signs: Vital Signs Temperature 97.5 F L 07/27/18 08:29 Pulse Rate 75 07/27/18 08:29 Respiratory Rate 14 07/27/18 08:29 Blood Pressure 108/68 07/27/18 08:29 O2 Sat by Pulse Oximetry (%) 95 07/27/18 09:00 Constitutional: Yes: No Distress, Calm Eyes: Yes: Conjunctiva Clear Cardiovascular: Yes: WNL, Regular Rate and Rhythm Respiratory: Yes: Regular, CTA Bilaterally Gastrointestinal: Yes: Soft Edema: Yes (mild bipedal edema) Neurological: Yes: WNL, Alert, Oriented Labs: CBC, BMP 07/27/18 07:00 07/27/18 07:00 INR, PTT INR 1.01 (0.83-1.09) 07/08/18 16:43 Assessment/Plan 82F with COPD on home O2, CAD, dCHF, and recently dx'd lung adenocarcinoma admitted with SOB after 1st RT treatment. Being treated for COPD exacerbation with IV steroids, nebs. Has had worsening chest pain. Ruled out for PE by CT today. Has increase in size of left lower lobe consolidation -- ?source of pain. Would consider Abx. Plan to resume RT when acute issues resolve
[2018-07-27] MEDS ORDERED: ROSUVASTATIN CA 10 MG TABLET (FP) ONE (21:30)
[2018-07-27] MEDS: ROSUVASTATIN CA 20 MG TABLET (FP) PO SCH (21:39)
[2018-07-28] MEDS: ALBUTEROL SO4 0.083% IH SOL 2.5 MG/3 ML VIAL.NEB. NEB PRN ×2 (03:48→08:18)
[2018-07-28] MEDS: ALPRAZolam 0.25 MG TABLET PO PRN (03:57)
--- NOTE | 2018-07-28 04:41 | PN ---
Progress Note (short form) - Note Progress Note: Paged by nurse to come evaluate patient as she has been having shortness of breath, desaturating at 70s. Respiratory therapist in attendance. Patient was initially put on NRB, maintaining saturation at 80%She was placed back on venti mask. General:awake, alert, in moderate distress, on venti mask. Lungs: decreased breath sounds L>R CXR stat Morning labs expedited (CBC, CMP, Trop, BNP, CPK) ABG Will place patient on bipap for now (06/06/16). Will continue to monitor.
[2018-07-28 06:50] LABS: ARTERIAL BLOOD GAS BASE EXCESS 6.7 meq/l (-2-2); ARTERIAL BLOOD GAS PCO2 55.5 mmHg (35-45); ARTERIAL BLOOD GAS pH 7.39 (7.35-7.45)
[2018-07-28] MEDS: INSULIN SLIDING SCALE (NOVOLOG) 1 VIAL SQ SCH ×4 (06:52→22:15)
[2018-07-28 06:56] LABS: BASO % 0.1 % (0-2.0); EOS % 0.3 % (0-4.5); HEMATOCRIT 36.9 % (32.4-45.2); HEMOGLOBIN 11.9 GM/dL (10.7-15.3); LYMPH % 1.5 % (8-40); MCH 29.4 pg (25.7-33.7); MCHC 32.3 g/dl (32.0-36.0); MEAN CELL VOLUME 90.9 fl (80-96); MEAN PLT VOLUME 10.2 fl (7.5-11.1); NEUT % 93.1 % (42.8-82.8); PLATELET COUNT 75 K/MM3 (134-434); RBC 4.06 M/mm3 (3.60-5.2); RDW 17.7 % (11.6-15.6); WHITE BLOOD COUNT 20.3 K/mm3 (4.0-10.0)
[2018-07-28 07:37] LABS: ALBUMIN 3.1 g/dl (3.4-5.0); ALK PHOS 68 U/L (45-117); ANION GAP 4 MMOL/L (8-16); BILIRUBIN,TOTAL 0.4 mg/dL (0.2-1); BLOOD UREA NITROGEN 40 mg/dL (7-18); CALCIUM 8.5 mg/dL (8.5-10.1); CHLORIDE 100 mmol/L (98-107); CO2 37 mmol/L (21-32); CREATININE 0.8 mg/dL (0.55-1.3); GLUCOSE,RANDOM 86 mg/dL (74-106); SGOT/AST 45 U/L (15-37); SGPT/ALT 126 U/L (13-61); SODIUM 142 mmol/L (136-145); TOT PROT 5.8 g/dl (6.4-8.2)
--- NOTE | 2018-07-28 08:30 | PN ---
Progress Note, Physician Chief Complaint: had increased SOB and desating last night; Trop borderline +; transferred to telemetry; cardio f/u;. chest CT LLL PNA; new lung/sq nodules suspicious of mets on 100% NRB - Current Medication List Current Medications: Active Medications Acetaminophen (Tylenol -) 650 mg PO Q6H PRN PRN Reason: PAIN Last Admin: 07/21/18 21:42 Dose: 650 mg Albuterol Sulfate (Ventolin 0.083% Nebulizer Soln -) 1 amp NEB Q4H PRN PRN Reason: SHORT OF BREATH/WHEEZING Last Admin: 07/28/18 08:18 Dose: 1 amp Alprazolam (Xanax -) 0.25 mg PO Q8H PRN PRN Reason: ANXIETY Last Admin: 07/28/18 03:57 Dose: 0.25 mg Aspirin (Ecotrin -) 81 mg PO DAILY [facility] Budesonide/Formoterol Fumarate (Symbicort 80/4.5mcg -) 2 puff IH BID [facility] Last Admin: 07/27/18 21:40 Dose: 2 puff Enoxaparin Sodium (Lovenox -) 40 mg SQ DAILY [facility] Last Admin: 07/27/18 10:26 Dose: 40 mg Furosemide (Lasix -) 20 mg PO DAILY [facility] Last Admin: 07/27/18 10:27 Dose: 20 mg Gabapentin (Neurontin -) 100 mg PO DAILY [facility] Last Admin: 07/27/18 10:26 Dose: 100 mg Guaifenesin (Robitussin -) 10 ml PO Q6H PRN PRN Reason: COUGH Last Admin: 07/18/18 03:00 Dose: 10 ml Piperacillin Sod/Tazobactam (Sod 3.375 gm/ Dextrose) 50 mls @ 100 mls/hr IVPB Q8H-IV [facility]; Protocol Piperacillin Sod/Tazobactam (Sod 3.375 gm/ Dextrose) 50 mls @ 100 mls/hr IVPB Q8H-IV [facility]; Protocol Stop: 07/29/18 02:29 Insulin Aspart (Novolog Vial Sliding Scale -) 1 vial SQ [facility]; Protocol Last Admin: 07/28/18 06:52 Dose: 2 units Methylprednisolone Sodium Succinate (Solu-Medrol -) 40 mg IVPUSH Q6H-IV [facility] Metoprolol Tartrate (Lopressor -) 25 mg PO BID [facility] Last Admin: 07/27/18 21:38 Dose: 25 mg Pantoprazole Sodium (Protonix -) 40 mg PO DAILY [facility] Last Admin: 07/27/18 10:26 Dose: 40 mg Ranitidine HCl (Zantac -) 150 mg PO DAILY [facility] Last Admin: 07/27/18 10:26 Dose: 150 mg Rosuvastatin Calcium (Crestor -) 20 mg PO HS [facility] Last Admin: 07/27/18 21:39 Dose: 20 mg Tiotropium [place] (Spiriva Respimat) 2 puff IH DAILY [facility] Last Admin: 07/27/18 10:27 Dose: 2 puff - Objective Vital Signs: Vital Signs Temperature 97.6 F 07/28/18 06:43 Pulse Rate 98 H 07/28/18 06:43 Respiratory Rate 22 H 07/28/18 06:43 Blood Pressure 147/76 07/28/18 06:43 O2 Sat by Pulse Oximetry (%) 95 07/27/18 21:00 Constitutional: Yes: No Distress Eyes: Yes: Conjunctiva Clear HENT: Yes: Atraumatic Neck: Yes: Supple Cardiovascular: Yes: Regular Rate and Rhythm Respiratory: Yes: Rhonchi, Wheezes Gastrointestinal: Yes: Soft. No: Tenderness Genitourinary: No: CVA Tenderness - Left, CVA Tenderness - Right Musculoskeletal: No: Joint Stiffness, Joint Swelling Extremities: No: Cold, Cool, Cyanosis Edema: No Integumentary: No: Rash, Venous Stasis Changes Neurological: Yes: WNL, Alert, Oriented ...Motor Strength: WNL Psychiatric: Yes: WNL, Alert, Oriented. No: Agitated, Suicidal Ideation Labs: CBC, BMP 07/28/18 06:30 07/28/18 06:30 INR, PTT INR 1.01 (0.83-1.09) 07/08/18 16:43 - ....Imaging Other: Report Reviewed Assessment/Plan The patient is an 82 year old female with a PMH of COPD (on 2L), Stage 3a NSCC ( currently on radiation), CAD s/p [place] (s/p cardiac stent x3), HTN, HLD \admitted with acute onset of shortness of breath, acute on chronic COPD exac and bronchitis, new L sided CP chest CT c/w PNA and metastatic ds ; borderline + troponins h/o ASHD stent, high BNP h/o CHF iv steroids, nebs, O2 and iv antibiotics PULM, Cardiology f/u high LFT; liver mass c/w adenoCA metastasis from lung ONC f/u, rad tx f/u s/p port placement - chemotx per ONC when infection clear DVT pfx restart sq lovenox prognosis guarded d/w pt and staff
[2018-07-28] MEDS ORDERED: DEXTROSE 5%-WATER - 50 ML IVPB ONE ×2 (09:19→17:52)
[2018-07-28] MEDS ORDERED: PIPERACILLIN/TAZOBACTAM 3.375 GM VIAL IVPB ONE ×2 (09:19→17:52)
--- NOTE | 2018-07-28 09:41 | PN ---
Progress Note, Physician Chief Complaint: Moved to telemetry due to elevated TnI Denies anginal symptoms Pleuritic type CP, resolved. CTA negative for PE. + infiltrate and possible progression of dz in chest. TELE: not yet attached - Current Medication List Current Medications: Active Medications Acetaminophen (Tylenol -) 650 mg PO Q6H PRN PRN Reason: PAIN Last Admin: 07/21/18 21:42 Dose: 650 mg Albuterol Sulfate (Ventolin 0.083% Nebulizer Soln -) 1 amp NEB Q4H PRN PRN Reason: SHORT OF BREATH/WHEEZING Last Admin: 07/28/18 08:18 Dose: 1 amp Alprazolam (Xanax -) 0.25 mg PO Q8H PRN PRN Reason: ANXIETY Last Admin: 07/28/18 03:57 Dose: 0.25 mg Aspirin (Ecotrin -) 81 mg PO DAILY [facility] Budesonide/Formoterol Fumarate (Symbicort 80/4.5mcg -) 2 puff IH BID [facility] Last Admin: 07/27/18 21:40 Dose: 2 puff Enoxaparin Sodium (Lovenox -) 40 mg SQ DAILY [facility] Last Admin: 07/27/18 10:26 Dose: 40 mg Furosemide (Lasix -) 20 mg PO DAILY [facility] Last Admin: 07/27/18 10:27 Dose: 20 mg Gabapentin (Neurontin -) 100 mg PO DAILY [facility] Last Admin: 07/27/18 10:26 Dose: 100 mg Guaifenesin (Robitussin -) 10 ml PO Q6H PRN PRN Reason: COUGH Last Admin: 07/18/18 03:00 Dose: 10 ml Piperacillin Sod/Tazobactam (Sod 3.375 gm/ Dextrose) 50 mls @ 100 mls/hr IVPB Q8H-IV [facility]; Protocol Piperacillin Sod/Tazobactam (Sod 3.375 gm/ Dextrose) 50 mls @ 100 mls/hr IVPB Q8H-IV [facility]; Protocol Stop: 07/29/18 02:29 Insulin Aspart (Novolog Vial Sliding Scale -) 1 vial SQ ACHS [facility]; Protocol Last Admin: 07/28/18 06:52 Dose: 2 units Methylprednisolone Sodium Succinate (Solu-Medrol -) 40 mg IVPUSH Q6H-IV [facility] Metoprolol Tartrate (Lopressor -) 25 mg PO BID [facility] Last Admin: 07/27/18 21:38 Dose: 25 mg Pantoprazole Sodium (Protonix -) 40 mg PO DAILY [facility] Last Admin: 07/27/18 10:26 Dose: 40 mg Ranitidine HCl (Zantac -) 150 mg PO DAILY [facility] Last Admin: 07/27/18 10:26 Dose: 150 mg Rosuvastatin Calcium (Crestor -) 20 mg PO HS [facility] Last Admin: 07/27/18 21:39 Dose: 20 mg Tiotropium [place] (Spiriva Respimat) 2 puff IH DAILY [facility] Last Admin: 07/27/18 10:27 Dose: 2 puff - Objective Vital Signs: Vital Signs Temperature 97.6 F 07/28/18 06:43 Pulse Rate 96 H 07/28/18 09:06 Respiratory Rate 26 H 07/28/18 09:06 Blood Pressure 127/73 07/28/18 09:06 O2 Sat by Pulse Oximetry (%) 97 07/28/18 09:05 Constitutional: Yes: No Distress, Calm Cardiovascular: Yes: Regular Rate and Rhythm Respiratory: Yes: Other (decreased breath sounds bilaterally) Gastrointestinal: Yes: Soft Edema: No Neurological: Yes: Alert Labs: CBC, BMP 07/28/18 06:30 07/28/18 06:30 INR, PTT INR 1.01 (0.83-1.09) 07/08/18 16:43 Microbiology 07/23/18 21:00 Blood - Peripheral Venous Blood Culture - Preliminary NO GROWTH OBTAINED AFTER 96 HOURS, INCUBATION TO CONTINUE FOR 1 DAYS. 07/23/18 21:00 Blood - Peripheral Venous Blood Culture - Preliminary NO GROWTH OBTAINED AFTER 96 HOURS, INCUBATION TO CONTINUE FOR 1 DAYS. 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 Stable ECG, do not suspect ACS. REC: 1. Agree w/ tele monitoring 24-48 hrs 2. Repeat Echo in AM to assess LV fx, and r/o pericardial disease which sometimes occurs in cancer patients and may elevate TnI; daily ECG 3. ASA 4. DVT prophylaxis Coverage for Dr. Ortiz
[2018-07-28] MEDS: ACETAMINOPHEN 325 MG TABLET (FP) PO PRN (09:43)
[2018-07-28] MEDS: ENOXAPARIN NA (PORCINE) 40 MG/0.4 ML DISP.SYRIN SQ SCH (09:43)
[2018-07-28] MEDS: TIOTROPIUM BROMIDE 2.5 MCG (SPIRIVA) RESPIMAT INHALER IH SCH ×2 (09:44→10:01)
[2018-07-28] MEDS: methylPREDNISolone NA SUCC 40 MG/1 ML VIAL IVPUSH SCH ×3 (09:44→22:05)
[2018-07-28] MEDS: METOPROLOL TARTRATE 25 MG TABLET (FP) PO SCH ×2 (09:44→22:05)
[2018-07-28] MEDS: RANITIDINE HCL 150 MG TABLET (FP) PO SCH (09:44)
[2018-07-28] MEDS: FUROSEMIDE 20 MG TABLET (FP) PO SCH (09:44)
[2018-07-28] MEDS: GABAPENTIN 100 MG CAPSULE (FP) PO SCH (09:44)
[2018-07-28] MEDS: PANTOPRAZOLE 40 MG TABLET (FP) PO SCH (09:44)
[2018-07-28] MEDS: guaiFENesin 200 MG/10 ML 10 ML UNIT-DOSE CUPS PO PRN (09:44)
[2018-07-28] MEDS: BUDESONIDE/FORMETEROL FUMARATE 80/4.5 mcg INHALER IH SCH ×3 (09:45→22:11)
[2018-07-28] MEDS: PIPERACILLIN/TAZOB 3.375 GM 3.375 GM in DEXTROSE 5%-WATER - 50 ML IVPB SCH ×2 (10:00→17:57)
[2018-07-28] MEDS: guaiFENesin 600 MG TABLET.ER (FP) PO SCH ×2 (10:00→22:05)
[2018-07-28] MEDS ORDERED: ASPIRIN COATED 81 MG TABLET.EC PO SCH (10:00)
[2018-07-28] MEDS ORDERED: PIPERACILLIN/TAZOB 3.375 GM 3.375 GM in DEXTROSE 5%-WATER - 50 ML IVPB SCH (10:00)
[2018-07-28 10:19] LABS: ANISOCYTOSIS 0; MACROCYTOSIS 0; PLATELET ESTIMATE DECREASED
--- NOTE | 2018-07-28 10:52 | PN ---
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
--- NOTE | 2018-07-28 11:17 | EKG ---
Test Reason : Blood Pressure : / mmHG Vent. Rate : 090 BPM Atrial Rate : 090 BPM P-R Int : 106 ms QRS Dur : 086 ms QT Int : 356 ms P-R-T Axes : 078 047 104 degrees QTc Int : 435 ms SINUS RHYTHM WITH SHORT DC NONSPECIFIC ST AND T WAVE ABNORMALITY ABNORMAL ECG WHEN COMPARED WITH ECG OF 27-JUL-2018 09:46, NONSPECIFIC T WAVE ABNORMALITY, WORSE IN LATERAL LEADS Confirmed by JANAY MORRISON, ELVIE ([id number]) on 07/28/2018 11:17:29 AM Referred By: Shalini TAPIA Confirmed By:ELVIE GUSTAFSON MD
[2018-07-28] MEDS: ALBUTEROL SO4 0.083% IH SOL 2.5 MG/3 ML VIAL.NEB. NEB SCH ×3 (11:24→20:50)
[2018-07-28] MEDS: ROSUVASTATIN CA 20 MG TABLET (FP) PO SCH (22:05)
--- NOTE | 2018-07-28 22:23 | PN ---
Progress Note, Physician Chief Complaint: shortness of breath History of Present Illness: Had worsening dyspnea overnight, requiring BiPAP. Now feeling better and switched to nasal canula. - Current Medication List Current Medications: Active Medications Acetaminophen (Tylenol -) 650 mg PO Q6H PRN PRN Reason: PAIN Last Admin: 07/28/18 09:43 Dose: 650 mg Albuterol Sulfate (Ventolin 0.083% Nebulizer Soln -) 1 amp NEB RQ4H [facility] Last Admin: 07/28/18 20:50 Dose: 1 amp Alprazolam (Xanax -) 0.25 mg PO Q8H PRN PRN Reason: ANXIETY Last Admin: 07/28/18 03:57 Dose: 0.25 mg Aspirin (Ecotrin -) 81 mg PO DAILY [facility] Last Admin: 07/28/18 09:44 Dose: 81 mg Budesonide/Formoterol Fumarate (Symbicort 80/4.5mcg -) 2 puff IH BID [facility] Last Admin: 07/28/18 22:11 Dose: 2 puff Enoxaparin Sodium (Lovenox -) 40 mg SQ DAILY [facility] Last Admin: 07/28/18 09:43 Dose: 40 mg Furosemide (Lasix -) 20 mg PO DAILY [facility] Last Admin: 07/28/18 09:44 Dose: 20 mg Gabapentin (Neurontin -) 100 mg PO DAILY [facility] Last Admin: 07/28/18 09:44 Dose: 100 mg Guaifenesin (Robitussin -) 10 ml PO Q6H PRN PRN Reason: COUGH Last Admin: 07/28/18 09:44 Dose: 10 ml Guaifenesin (Mucinex -) 600 mg PO BID [facility] Last Admin: 07/28/18 22:05 Dose: 600 mg Piperacillin Sod/Tazobactam (Sod 3.375 gm/ Dextrose) 50 mls @ 100 mls/hr IVPB Q8H-IV [facility]; Protocol Piperacillin Sod/Tazobactam (Sod 3.375 gm/ Dextrose) 50 mls @ 100 mls/hr IVPB Q8H-IV [facility]; Protocol Stop: 07/29/18 02:29 Last Admin: 07/28/18 17:57 Dose: 100 mls/hr Insulin Aspart (Novolog Vial Sliding Scale -) 1 vial SQ ACHS [facility]; Protocol Last Admin: 07/28/18 22:15 Dose: 2 units Methylprednisolone Sodium Succinate (Solu-Medrol -) 40 mg IVPUSH Q6H-IV [facility] Last Admin: 07/28/18 22:05 Dose: 40 mg Metoprolol Tartrate (Lopressor -) 25 mg PO BID [facility] Last Admin: 07/28/18 22:05 Dose: 25 mg Pantoprazole Sodium (Protonix -) 40 mg PO DAILY [facility] Last Admin: 07/28/18 09:44 Dose: 40 mg Ranitidine HCl (Zantac -) 150 mg PO DAILY [facility] Last Admin: 07/28/18 09:44 Dose: 150 mg Rosuvastatin Calcium (Crestor -) 20 mg PO HS [facility] Last Admin: 07/28/18 22:05 Dose: 20 mg Tiotropium [place] (Spiriva Respimat) 2 puff IH DAILY [facility] Last Admin: 07/28/18 10:01 Dose: 2 puff - Objective Vital Signs: Vital Signs Temperature 98.2 F 07/28/18 18:03 Pulse Rate 72 07/28/18 18:03 Respiratory Rate 21 H 07/28/18 14:00 Blood Pressure 104/49 L 07/28/18 18:03 O2 Sat by Pulse Oximetry (%) 97 07/28/18 17:54 Constitutional: Yes: No Distress Eyes: Yes: Conjunctiva Clear Respiratory: Yes: Regular, CTA Bilaterally Gastrointestinal: Yes: Normal Bowel Sounds, Soft Edema: No Labs: CBC, BMP 07/28/18 06:30 07/28/18 06:30 INR, PTT INR 1.01 (0.83-1.09) 07/08/18 16:43 Assessment/Plan 82F with COPD on home O2, CAD, dCHF, and recently dx'd lung adenocarcinoma admitted with SOB after 1st RT treatment. Being treated for COPD exacerbation with IV steroids, nebs. Has had worsening chest pain. Ruled out for PE. Has increase in size of left lower lobe consolidation -- ?source of pain and dyspnea. Agree with Abx. Plan to resume RT when acute issues resolve
[2018-07-29] MEDS: ALBUTEROL SO4 0.083% IH SOL 2.5 MG/3 ML VIAL.NEB. NEB SCH ×6 (01:30→20:52)
[2018-07-29] MEDS ORDERED: PIPERACILLIN/TAZOBACTAM 3.375 GM VIAL IVPB ONE (02:39)
[2018-07-29] MEDS ORDERED: DEXTROSE 5%-WATER - 50 ML IVPB ONE ×2 (02:40→11:17)
[2018-07-29] MEDS: PIPERACILLIN/TAZOB 3.375 GM 3.375 GM in DEXTROSE 5%-WATER - 50 ML IVPB SCH (03:00)
[2018-07-29] MEDS: methylPREDNISolone NA SUCC 40 MG/1 ML VIAL IVPUSH SCH ×4 (03:00→21:19)
[2018-07-29 06:37] LABS: BASO % 0.3 % (0-2.0); HEMATOCRIT 30.2 % (32.4-45.2); HEMOGLOBIN 10.3 GM/dL (10.7-15.3); LYMPH % 1.3 % (8-40); MCH 30.4 pg (25.7-33.7); MEAN CELL VOLUME 89.3 fl (80-96); MEAN PLT VOLUME 10.6 fl (7.5-11.1); MONO % 0.9 % (3.8-10.2); NEUT % 97.5 % (42.8-82.8); PLATELET COUNT 60 K/MM3 (134-434); RBC 3.39 M/mm3 (3.60-5.2); RDW 17.7 % (11.6-15.6); WHITE BLOOD COUNT 10.7 K/mm3 (4.0-10.0)
[2018-07-29] MEDS: INSULIN SLIDING SCALE (NOVOLOG) 1 VIAL SQ SCH ×4 (06:40→21:31)
[2018-07-29 07:41] LABS: ALBUMIN 2.9 g/dl (3.4-5.0); ALK PHOS 55 U/L (45-117); ANION GAP 8 MMOL/L (8-16); BILIRUBIN,TOTAL 0.5 mg/dL (0.2-1); BLOOD UREA NITROGEN 49 mg/dL (7-18); CALCIUM 8.7 mg/dL (8.5-10.1); CHLORIDE 101 mmol/L (98-107); CO2 35 mmol/L (21-32); GLUCOSE,RANDOM 164 mg/dL (74-106); POTASSIUM 4.1 mmol/L (3.5-5.1); SGOT/AST 24 U/L (15-37); SGPT/ALT 86 U/L (13-61); SODIUM 143 mmol/L (136-145); TOT PROT 5.4 g/dl (6.4-8.2)
--- NOTE | 2018-07-29 08:55 | PN ---
Progress Note, Physician History of Present Illness: The patient is an 82 year old white female with a PMH of COPD (on 2L), Stage 3a NSCC lung cancer (currently on radiation), CAD s/p [place] (s/p cardiac stent x3), HTN, HLD was BIBEMS for acute onset of shortness of breath. Patient was completing her first radiation treatment today when she suddenly became short of breath. Denies chest pain, lightheadedness, nausea, diaphoresis. Grandson @ bedside assists in history, notes patient has been taking her Albuterol inhaler multiple times daily. Recent medication addition of Symbicort to her daily regimen. History limited as patient tachycardic, tachypneic @ presentation. NKDA Surgical: Cardiac Stent x3, lung biopsy PMD: Dr. Mary Beth Stein Cardiology: Dr. Bah Pulmonology: Dr. Kern/Dr. Velazquez - Current Medication List Current Medications: Active Medications Acetaminophen (Tylenol -) 650 mg PO Q6H PRN PRN Reason: PAIN Last Admin: 07/28/18 09:43 Dose: 650 mg Albuterol Sulfate (Ventolin 0.083% Nebulizer Soln -) 1 amp NEB RQ4H [facility] Last Admin: 07/29/18 07:15 Dose: 1 amp Alprazolam (Xanax -) 0.25 mg PO Q8H PRN PRN Reason: ANXIETY Last Admin: 07/28/18 03:57 Dose: 0.25 mg Aspirin (Ecotrin -) 81 mg PO DAILY [facility] Last Admin: 07/28/18 09:44 Dose: 81 mg Budesonide/Formoterol Fumarate (Symbicort 80/4.5mcg -) 2 puff IH BID [facility] Last Admin: 07/28/18 22:11 Dose: 2 puff Enoxaparin Sodium (Lovenox -) 40 mg SQ DAILY [facility] Last Admin: 07/28/18 09:43 Dose: 40 mg Furosemide (Lasix -) 20 mg PO DAILY [facility] Last Admin: 07/28/18 09:44 Dose: 20 mg Gabapentin (Neurontin -) 100 mg PO DAILY [facility] Last Admin: 07/28/18 09:44 Dose: 100 mg Guaifenesin (Robitussin -) 10 ml PO Q6H PRN PRN Reason: COUGH Last Admin: 07/28/18 09:44 Dose: 10 ml Guaifenesin (Mucinex -) 600 mg PO BID [facility] Last Admin: 07/28/18 22:05 Dose: 600 mg Piperacillin Sod/Tazobactam (Sod 3.375 gm/ Dextrose) 50 mls @ 100 mls/hr IVPB Q8H-IV [facility]; Protocol Insulin Aspart (Novolog Vial Sliding Scale -) 1 vial SQ ACHS [facility]; Protocol Last Admin: 07/29/18 06:40 Dose: 2 units Methylprednisolone Sodium Succinate (Solu-Medrol -) 40 mg IVPUSH Q6H-IV [facility] Last Admin: 07/29/18 03:00 Dose: 40 mg Metoprolol Tartrate (Lopressor -) 25 mg PO BID [facility] Last Admin: 07/28/18 22:05 Dose: 25 mg Pantoprazole Sodium (Protonix -) 40 mg PO DAILY [facility] Last Admin: 07/28/18 09:44 Dose: 40 mg Ranitidine HCl (Zantac -) 150 mg PO DAILY [facility] Last Admin: 07/28/18 09:44 Dose: 150 mg Rosuvastatin Calcium (Crestor -) 20 mg PO HS [facility] Last Admin: 07/28/18 22:05 Dose: 20 mg Tiotropium [place] (Spiriva Respimat) 2 puff IH DAILY [facility] Last Admin: 07/28/18 10:01 Dose: 2 puff - Objective Vital Signs: Vital Signs Temperature 97.8 F 07/29/18 06:00 Pulse Rate 94 H 07/29/18 06:00 Respiratory Rate 20 07/29/18 06:00 Blood Pressure 122/71 07/29/18 06:00 O2 Sat by Pulse Oximetry (%) 98 07/28/18 23:21 Eyes: Yes: WNL, Conjunctiva Clear, EOM Intact HENT: Yes: WNL, Atraumatic, Normocephalic Neck: Yes: WNL, Supple, Trachea Midline Cardiovascular: Yes: WNL, Regular Rate and Rhythm Respiratory: Yes: Diminished Gastrointestinal: Yes: WNL, Normal Bowel Sounds Genitourinary: Yes: WNL Musculoskeletal: Yes: WNL Extremities: Yes: WNL Edema: No Integumentary: Yes: WNL Neurological: Yes: WNL, Alert, Oriented ...Motor Strength: WNL Psychiatric: Yes: WNL Labs: CBC, BMP 07/29/18 05:30 07/29/18 05:30 INR, PTT INR 1.01 (0.83-1.09) 07/08/18 16:43 Assessment/Plan IMPRESSION: Acute COPD Exacerbation s/p RT session 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 Stable ECG, do not suspect ACS. REC: 1. Agree w/ tele monitoring 24-48 hrs 2. Repeat Echo in AM to assess LV fx, and r/o pericardial disease which sometimes occurs in cancer patients and may elevate TnI; daily ECG 3. ASA 4. DVT prophylaxis
[2018-07-29] MEDS: guaiFENesin 600 MG TABLET.ER (FP) PO SCH ×2 (09:46→21:19)
[2018-07-29] MEDS: METOPROLOL TARTRATE 25 MG TABLET (FP) PO SCH ×2 (09:46→21:19)
[2018-07-29] MEDS: PANTOPRAZOLE 40 MG TABLET (FP) PO SCH (09:46)
[2018-07-29] MEDS: RANITIDINE HCL 150 MG TABLET (FP) PO SCH (09:46)
[2018-07-29] MEDS: GABAPENTIN 100 MG CAPSULE (FP) PO SCH (09:47)
[2018-07-29] MEDS: FUROSEMIDE 20 MG TABLET (FP) PO SCH (09:47)
[2018-07-29] MEDS: TIOTROPIUM BROMIDE 2.5 MCG (SPIRIVA) RESPIMAT INHALER IH SCH (09:48)
[2018-07-29] MEDS: BUDESONIDE/FORMETEROL FUMARATE 80/4.5 mcg INHALER IH SCH ×2 (09:48→21:22)
--- NOTE | 2018-07-29 09:48 | PN ---
Progress Note, Physician Chief Complaint: still SOB on bipap prn L sided PNA on CT - Current Medication List Current Medications: Active Medications Acetaminophen (Tylenol -) 650 mg PO Q6H PRN PRN Reason: PAIN Last Admin: 07/28/18 09:43 Dose: 650 mg Albuterol Sulfate (Ventolin 0.083% Nebulizer Soln -) 1 amp NEB RQ4H [facility] Last Admin: 07/29/18 07:15 Dose: 1 amp Alprazolam (Xanax -) 0.25 mg PO Q8H PRN PRN Reason: ANXIETY Last Admin: 07/28/18 03:57 Dose: 0.25 mg Budesonide/Formoterol Fumarate (Symbicort 80/4.5mcg -) 2 puff IH BID [facility] Last Admin: 07/28/18 22:11 Dose: 2 puff Furosemide (Lasix -) 20 mg PO DAILY [facility] Last Admin: 07/28/18 09:44 Dose: 20 mg Gabapentin (Neurontin -) 100 mg PO DAILY [facility] Last Admin: 07/28/18 09:44 Dose: 100 mg Guaifenesin (Robitussin -) 10 ml PO Q6H PRN PRN Reason: COUGH Last Admin: 07/28/18 09:44 Dose: 10 ml Guaifenesin (Mucinex -) 600 mg PO BID [facility] Last Admin: 07/28/18 22:05 Dose: 600 mg Azithromycin 500 mg/ Dextrose 250 mls @ 250 mls/hr IVPB DAILY [facility] Ceftriaxone Sodium 1,000 mg/ (Dextrose) 50 mls @ 100 mls/hr IVPB DAILY [facility] Insulin Aspart (Novolog Vial Sliding Scale -) 1 vial SQ ACHS [facility]; Protocol Last Admin: 07/29/18 06:40 Dose: 2 units Lactobacillus Acidophilus (Bacid -) 1 tab PO DAILY [facility] Methylprednisolone Sodium Succinate (Solu-Medrol -) 40 mg IVPUSH Q6H-IV [facility] Last Admin: 07/29/18 03:00 Dose: 40 mg Metoprolol Tartrate (Lopressor -) 25 mg PO BID [facility] Last Admin: 07/28/18 22:05 Dose: 25 mg Pantoprazole Sodium (Protonix -) 40 mg PO DAILY [facility] Last Admin: 07/28/18 09:44 Dose: 40 mg Ranitidine HCl (Zantac -) 150 mg PO DAILY [facility] Last Admin: 07/28/18 09:44 Dose: 150 mg Rosuvastatin Calcium (Crestor -) 20 mg PO HS [facility] Last Admin: 07/28/18 22:05 Dose: 20 mg Tiotropium [place] (Spiriva Respimat) 2 puff IH DAILY [facility] Last Admin: 07/28/18 10:01 Dose: 2 puff - Objective Vital Signs: Vital Signs Temperature 98.2 F 07/29/18 09:43 Pulse Rate 99 H 07/29/18 09:43 Respiratory Rate 18 07/29/18 09:43 Blood Pressure 138/61 07/29/18 09:43 O2 Sat by Pulse Oximetry (%) 98 07/28/18 23:21 Constitutional: Yes: Anxious Eyes: Yes: Conjunctiva Clear HENT: Yes: Atraumatic Neck: Yes: Supple Cardiovascular: Yes: Regular Rate and Rhythm Respiratory: Yes: Rales (bilat), Rhonchi Gastrointestinal: Yes: Soft. No: Tenderness Genitourinary: No: CVA Tenderness - Left, CVA Tenderness - Right Musculoskeletal: No: Joint Stiffness, Joint Swelling Extremities: No: Cold, Cool, Cyanosis Edema: No Integumentary: No: Rash, Venous Stasis Changes Neurological: Yes: WNL, Alert, Oriented ...Motor Strength: WNL Psychiatric: Yes: WNL, Alert, Oriented. No: Agitated, Suicidal Ideation Labs: CBC, BMP 07/29/18 05:30 07/29/18 05:30 INR, PTT INR 1.01 (0.83-1.09) 07/08/18 16:43 - ....Imaging Other: Report Reviewed Assessment/Plan The patient is an 82 year old female with a PMH of COPD (on 2L), Stage 3a NSCC ( currently on radiation), CAD s/p [place] (s/p cardiac stent x3), HTN, HLD \admitted with acute onset of shortness of breath, acute on chronic COPD exac and bronchitis, new L sided CP chest CT c/w PNA and metastatic ds ; borderline + troponins h/o ASHD stent, high BNP h/o CHF, New L sided PNA iv steroids, nebs, O2 and iv antibiotics PULM, Cardiology f/u high LFT; liver mass c/w adenoCA metastasis from lung ONC f/u, rad tx f/u s/p port placement - chemotx per ONC when infection clear DVT pfx restart sq lovenox prognosis guarded d/w pt and staff
[2018-07-29 10:41] LABS: ACANTHOCYTES 0; ANISOCYTOSIS 0; HELMET CELLS 0; HOWELL-JOLLY BODIES 0; MACROCYTOSIS 0; OVALOCYTE 0; PLATELET ESTIMATE DECREASED; ROULEAU 0; SICKELED CELLS 0; TARGET CELLS 0; TEAR DROP CELLS 0; TOXIC GRANULATION 0
[2018-07-29] MEDS ORDERED: cefTRIAXone SODIUM 1 GM VIAL ONE (11:17)
[2018-07-29] MEDS: CEFTRIAXONE 1 GM in DEXTROSE 5%-WATER - 50 ML IVPB SCH (11:31)
[2018-07-29] MEDS: AZITHROMYCIN IVPB 500 MG/250 ML BAG IVPB SCH (11:31)
[2018-07-29] MEDS: LACTOBACILLUS ACIDOPHILUS 1 TABLET PO SCH (11:31)
--- NOTE | 2018-07-29 11:59 | PN ---
Progress Note, Physician History of Present Illness: PULMONARY ALERT,FEELIUNG BETTER,LESS DYSPNEIC,+ COUGH MIN HEME - Current Medication List Current Medications: Active Medications Acetaminophen (Tylenol -) 650 mg PO Q6H PRN PRN Reason: PAIN Last Admin: 07/28/18 09:43 Dose: 650 mg Albuterol Sulfate (Ventolin 0.083% Nebulizer Soln -) 1 amp NEB RQ4H [facility] Last Admin: 07/29/18 11:10 Dose: 1 amp Alprazolam (Xanax -) 0.25 mg PO Q8H PRN PRN Reason: ANXIETY Last Admin: 07/28/18 03:57 Dose: 0.25 mg Budesonide/Formoterol Fumarate (Symbicort 80/4.5mcg -) 2 puff IH BID [facility] Last Admin: 07/29/18 09:48 Dose: 2 puff Furosemide (Lasix -) 20 mg PO DAILY [facility] Last Admin: 07/29/18 09:47 Dose: 20 mg Gabapentin (Neurontin -) 100 mg PO DAILY [facility] Last Admin: 07/29/18 09:47 Dose: 100 mg Guaifenesin (Robitussin -) 10 ml PO Q6H PRN PRN Reason: COUGH Last Admin: 07/28/18 09:44 Dose: 10 ml Guaifenesin (Mucinex -) 600 mg PO BID [facility] Last Admin: 07/29/18 09:46 Dose: 600 mg Azithromycin (Zithromax 500mg Ivpb (Pre-Docked)) 500 mg in 250 mls @ 250 mls/ hr IVPB DAILY [facility] Last Admin: 07/29/18 11:31 Dose: 250 mls/hr Ceftriaxone Sodium 1 gm/ (Dextrose) 50 mls @ 100 mls/hr IVPB DAILY [facility] Last Admin: 07/29/18 11:31 Dose: 100 mls/hr Insulin Aspart (Novolog Vial Sliding Scale -) 1 vial SQ ACHS [facility]; Protocol Last Admin: 07/29/18 06:40 Dose: 2 units Lactobacillus Acidophilus (Bacid -) 1 tab PO DAILY [facility] Last Admin: 07/29/18 11:31 Dose: 1 tab Methylprednisolone Sodium Succinate (Solu-Medrol -) 40 mg IVPUSH Q6H-IV [facility] Last Admin: 07/29/18 09:46 Dose: 40 mg Metoprolol Tartrate (Lopressor -) 25 mg PO BID [facility] Last Admin: 07/29/18 09:46 Dose: 25 mg Pantoprazole Sodium (Protonix -) 40 mg PO DAILY [facility] Last Admin: 07/29/18 09:46 Dose: 40 mg Ranitidine HCl (Zantac -) 150 mg PO DAILY [facility] Last Admin: 07/29/18 09:46 Dose: 150 mg Rosuvastatin Calcium (Crestor -) 20 mg PO HS [facility] Last Admin: 07/28/18 22:05 Dose: 20 mg Tiotropium [place] (Spiriva Respimat) 2 puff IH DAILY [facility] Last Admin: 07/29/18 09:48 Dose: 2 puff - Objective Vital Signs: Vital Signs Temperature 98.2 F 07/29/18 09:43 Pulse Rate 99 H 07/29/18 09:43 Respiratory Rate 18 07/29/18 09:43 Blood Pressure 138/61 07/29/18 09:43 O2 Sat by Pulse Oximetry (%) 98 07/28/18 23:21 Constitutional: Yes: Calm, Thin Eyes: Yes: WNL HENT: Yes: WNL Neck: Yes: WNL Cardiovascular: Yes: Regular Rate and Rhythm, S1, S2 Respiratory: Yes: Diminished Gastrointestinal: Yes: Normal Bowel Sounds, Soft Extremities: Yes: WNL Edema: No Labs: CBC, BMP 07/29/18 05:30 07/29/18 05:30 INR, PTT INR 1.01 (0.83-1.09) 07/08/18 16:43 Assessment/Plan Problem List - Problems (1) Adenocarcinoma, lung Code(s): C34.90 - MALIGNANT NEOPLASM OF UNSP PART OF UNSP BRONCHUS OR LUNG (2) ASHD (arteriosclerotic heart disease) Code(s): I25.10 - ATHSCL HEART DISEASE OF [place] CORONARY ARTERY W/O ANG PCTRS (3) Anxiety and depression Code(s): F41.9 - ANXIETY DISORDER, UNSPECIFIED; F32.9 - MAJOR DEPRESSIVE DISORDER, SINGLE EPISODE, UNSPECIFIED (4) COPD (chronic obstructive pulmonary disease) Code(s): J44.9 - CHRONIC OBSTRUCTIVE PULMONARY DISEASE, UNSPECIFIED Qualifiers: COPD type: unspecified COPD Qualified Code(s): J44.9 - Chronic obstructive pulmonary disease, unspecified (5) COPD exacerbation Code(s): J44.1 - CHRONIC OBSTRUCTIVE PULMONARY DISEASE W (ACUTE) EXACERBATION (6) Cough Code(s): R05 - COUGH (7) Diastolic CHF Code(s): I50.30 - UNSPECIFIED DIASTOLIC (CONGESTIVE) HEART FAILURE (8) HTN (hypertension) Code(s): I10 - ESSENTIAL (PRIMARY) HYPERTENSION (9) Hyperlipidemia Code(s): E78.5 - HYPERLIPIDEMIA, UNSPECIFIED (10) Hypothyroid Code(s): E03.9 - HYPOTHYROIDISM, UNSPECIFIED (11) Shortness of breath Code(s): R06.02 - SHORTNESS OF BREATH A/P Acute COPD Exacerbation s/p RT session 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
--- NOTE | 2018-07-29 12:44 | ECHO ---
Name: OCTOBERKATIERASHAD Exam:Adult Echocardiogram Study Date: 07/29/2018 10:24 AM Age: 82 yrs Reason For Study: Lung CA,+TnI,r/o effusion Height: 62 in Weight: 89 lb BSA: 1.4 m2 MMode/2D Measurements & Calculations IVSd: 0.87 cm Ao root diam: 2.7 cm LVIDd: 4.2 cm LA dimension: 4.0 cm LVIDs: 3.1 cm ACS: 1.2 cm LVPWd: 0.66 cm IVSs: 0.79 cm LVPWs: 0.80 cm EDV(Teich): 79.8 ml ESV(Teich): 39.4 ml Doppler Measurements & Calculations MV E max gavino: 74.5 cm/sec MR max gavino: 486.0 cm/sec MV A max gavino: 55.8 cm/sec MR max P.7 mmHg MV E/A: 1.3 TR max gavino: 351.6 cm/sec PI end-d gavino: 175.1 cm/sec TR max P.5 mmHg Med Peak E' Gavino: 4.0 cm/sec Med E/e': 18.6 Lat Peak E' Gavino: 5.2 cm/sec Lat E/e': 14.4 Procedure A complete two-dimensional transthoracic echocardiogram was performed (2D, M-mode, Doppler and color flow Doppler). Left Ventricle The left ventricle is normal in size. Left ventricular systolic function is mildly reduced. Ejection Fraction = 45-50%. Diastolic dysfunction, Grade II (pseudonormalization pattern). Ratio E/E'= 17. There is bas al posterolateral wall moderate hypokinesis. There are regional wall motion abnormalities as specified. Right Ventricle The right ventricle is not well visualized. Atria Borderline left atrial enlargement. Right atrial size is normal. Mitral Valve The mitral valve is normal in structure and function. There is moderate mitral regurgitation. Tricuspid Valve The tricuspid valve is normal in structure and function. There is moderate to severe tricuspid regurg itation. Pulmonary artery systolic pressure is at least 58 mmHg assuming RA pressure of 3 mmHg. Aortic Valve There is mild aortic sclerosis.;. Mild aortic regurgitation. Pulmonic Valve The pulmonic valve is not well visualized. Mild pulmonic valvular regurgitation. Great Vessels The aortic root is normal size. Pericardium/Pleura There is no pericardial effusion. There is a pleural effusion present. Interpretation Summary The left ventricle is normal in size. Left ventricular systolic function is mildly reduced. There are regional wall motion abnormalities as specified. Ejection Fraction = 45-50%. Diastolic dysfunction, Grade II (pseudonormalization pattern). Ratio E/E'= 17 c/w elevated filling pressure The right ventricle is not well visualized. Borderline left atrial enlargement. Right atrial size is normal. There is moderate mitral regurgitation. There is moderate to severe tricuspid regurgitation. Pulmonary artery systolic pressure is at least 58 mmHg assuming RA pressure of 3 mmHg There is mild aortic sclerosis. Mild aortic regurgitation. Mild pulmonic valvular regurgitation. There is no pericardial effusion. There is a pleural effusion present. When compared to study dated 04/22/18, regional wall motion abnormality is noted Neo Cedillo MD 07/29/2018 12:44 PM
[2018-07-29] MEDS: ROSUVASTATIN CA 20 MG TABLET (FP) PO SCH (21:19)
[2018-07-30] MEDS: methylPREDNISolone NA SUCC 40 MG/1 ML VIAL IVPUSH SCH ×4 (03:38→21:20)
[2018-07-30] MEDS: ALBUTEROL SO4 0.083% IH SOL 2.5 MG/3 ML VIAL.NEB. NEB SCH ×7 (04:30→23:38)
[2018-07-30] MEDS: INSULIN SLIDING SCALE (NOVOLOG) 1 VIAL SQ SCH ×6 (07:00→23:19)
[2018-07-30 07:46] LABS: ALK PHOS 57 U/L (45-117); ANION GAP 6 MMOL/L (8-16); BILIRUBIN,TOTAL 0.4 mg/dL (0.2-1); BLOOD UREA NITROGEN 43 mg/dL (7-18); CALCIUM 9.2 mg/dL (8.5-10.1); CHLORIDE 103 mmol/L (98-107); CO2 36 mmol/L (21-32); CREATININE 0.7 mg/dL (0.55-1.3); GLUCOSE,RANDOM 193 mg/dL (74-106); POTASSIUM 4.3 mmol/L (3.5-5.1); SGOT/AST 25 U/L (15-37); SGPT/ALT 82 U/L (13-61); SODIUM 145 mmol/L (136-145); TOT PROT 5.5 g/dl (6.4-8.2)
[2018-07-30 07:48] LABS: BASO % 0.1 % (0-2.0); HEMATOCRIT 30.1 % (32.4-45.2); MCH 29.6 pg (25.7-33.7); MCHC 33.1 g/dl (32.0-36.0); MEAN CELL VOLUME 89.5 fl (80-96); MEAN PLT VOLUME 10.8 fl (7.5-11.1); NEUT % 97.9 % (42.8-82.8); PLATELET COUNT 54 K/MM3 (134-434); RBC 3.37 M/mm3 (3.60-5.2); RDW 17.5 % (11.6-15.6); WHITE BLOOD COUNT 13.1 K/mm3 (4.0-10.0)
[2018-07-30 09:38] LABS: ANISOCYTOSIS 0; MACROCYTOSIS 0; OVALOCYTE 1+; PLATELET ESTIMATE DECREASED
[2018-07-30] MEDS ORDERED: cefTRIAXone SODIUM 1 GM VIAL ONE ×2 (10:40)
[2018-07-30] MEDS ORDERED: DEXTROSE 5%-WATER - 50 ML IVPB ONE ×2 (10:40)
[2018-07-30] MEDS: AZITHROMYCIN IVPB 500 MG/250 ML BAG IVPB SCH (10:45)
[2018-07-30] MEDS: CEFTRIAXONE 1 GM in DEXTROSE 5%-WATER - 50 ML IVPB SCH (10:45)
[2018-07-30] MEDS: guaiFENesin 600 MG TABLET.ER (FP) PO SCH ×2 (10:46→21:20)
[2018-07-30] MEDS: GABAPENTIN 100 MG CAPSULE (FP) PO SCH (10:46)
[2018-07-30] MEDS: PANTOPRAZOLE 40 MG TABLET (FP) PO SCH (10:46)
[2018-07-30] MEDS: METOPROLOL TARTRATE 25 MG TABLET (FP) PO SCH ×2 (10:46→21:20)
[2018-07-30] MEDS: FUROSEMIDE 20 MG TABLET (FP) PO SCH (10:46)
[2018-07-30] MEDS: RANITIDINE HCL 150 MG TABLET (FP) PO SCH (10:46)
[2018-07-30] MEDS: LACTOBACILLUS ACIDOPHILUS 1 TABLET PO SCH (10:46)
[2018-07-30] MEDS: BUDESONIDE/FORMETEROL FUMARATE 80/4.5 mcg INHALER IH SCH ×2 (10:47→21:31)
[2018-07-30] MEDS: TIOTROPIUM BROMIDE 2.5 MCG (SPIRIVA) RESPIMAT INHALER IH SCH (10:47)
--- NOTE | 2018-07-30 12:56 | PN ---
Progress Note, Physician Chief Complaint: still chest tightness and coughing; no hemoptysis today pt refused Bipap - Current Medication List Current Medications: Active Medications Acetaminophen (Tylenol -) 650 mg PO Q6H PRN PRN Reason: PAIN Last Admin: 07/28/18 09:43 Dose: 650 mg Albuterol Sulfate (Ventolin 0.083% Nebulizer Soln -) 1 amp NEB RQ4H JOHN Last Admin: 07/30/18 11:35 Dose: 1 amp Alprazolam (Xanax -) 0.25 mg PO Q8H PRN PRN Reason: ANXIETY Last Admin: 07/28/18 03:57 Dose: 0.25 mg Budesonide/Formoterol Fumarate (Symbicort 80/4.5mcg -) 2 puff IH BID [facility] Last Admin: 07/30/18 10:47 Dose: 2 puff Furosemide (Lasix -) 20 mg PO DAILY [facility] Last Admin: 07/30/18 10:46 Dose: 20 mg Gabapentin (Neurontin -) 100 mg PO DAILY [facility] Last Admin: 07/30/18 10:46 Dose: 100 mg Guaifenesin (Robitussin -) 10 ml PO Q6H PRN PRN Reason: COUGH Last Admin: 07/28/18 09:44 Dose: 10 ml Guaifenesin (Mucinex -) 600 mg PO BID [facility] Last Admin: 07/30/18 10:46 Dose: 600 mg Azithromycin (Zithromax 500mg Ivpb (Pre-Docked)) 500 mg in 250 mls @ 250 mls/ hr IVPB DAILY [facility] Last Admin: 07/30/18 10:45 Dose: 250 mls/hr Ceftriaxone Sodium 1 gm/ (Dextrose) 50 mls @ 100 mls/hr IVPB DAILY [facility] Last Admin: 07/30/18 10:45 Dose: 100 mls/hr Insulin Aspart (Novolog Vial Sliding Scale -) 1 vial SQ ACHS [facility]; Protocol Last Admin: 07/30/18 12:29 Dose: 12 units Lactobacillus Acidophilus (Bacid -) 1 tab PO DAILY [facility] Last Admin: 07/30/18 10:46 Dose: 1 tab Methylprednisolone Sodium Succinate (Solu-Medrol -) 40 mg IVPUSH Q6H-IV JOHN Last Admin: 07/30/18 10:45 Dose: 40 mg Metoprolol Tartrate (Lopressor -) 25 mg PO BID [facility] Last Admin: 07/30/18 10:46 Dose: 25 mg Pantoprazole Sodium (Protonix -) 40 mg PO DAILY [facility] Last Admin: 07/30/18 10:46 Dose: 40 mg Ranitidine HCl (Zantac -) 150 mg PO DAILY [facility] Last Admin: 07/30/18 10:46 Dose: 150 mg Rosuvastatin Calcium (Crestor -) 20 mg PO HS [facility] Last Admin: 07/29/18 21:19 Dose: 20 mg Tiotropium [place] (Spiriva Respimat) 2 puff IH DAILY [facility] Last Admin: 07/30/18 10:47 Dose: 2 puff - Objective Vital Signs: Vital Signs Temperature 98 F 07/30/18 09:00 Pulse Rate 98 H 07/30/18 09:00 Respiratory Rate 20 07/30/18 09:00 Blood Pressure 134/68 07/30/18 09:00 O2 Sat by Pulse Oximetry (%) 96 07/29/18 21:00 Constitutional: Yes: No Distress, Anxious Eyes: Yes: Conjunctiva Clear HENT: Yes: Atraumatic Neck: Yes: Supple Cardiovascular: Yes: Regular Rate and Rhythm Respiratory: Yes: Rhonchi Gastrointestinal: Yes: Soft. No: Tenderness Genitourinary: No: Hematuria Musculoskeletal: No: Joint Stiffness, Joint Swelling Extremities: No: Cold, Cool, Cyanosis Edema: No Integumentary: No: Rash, Venous Stasis Changes Neurological: Yes: WNL, Alert, Oriented ...Motor Strength: WNL Psychiatric: Yes: WNL, Alert, Oriented. No: Agitated, Suicidal Ideation Labs: CBC, BMP 07/30/18 06:30 07/30/18 06:30 INR, PTT INR 1.01 (0.83-1.09) 07/08/18 16:43 - ....Imaging Other: Report Reviewed Assessment/Plan The patient is an 82 year old female with a PMH of COPD (on 2L), Stage 3a NSCC ( currently on radiation), CAD s/p [place] (s/p cardiac stent x3), HTN, HLD \admitted with acute onset of shortness of breath, acute on chronic COPD exac and bronchitis, new L sided CP chest CT c/w PNA and metastatic ds ; borderline + troponins h/o ASHD stent, high BNP h/o CHF, New L sided PNA - had one episode of hempotysis yesterday, ASA and sq heparin held iv steroids, nebs, O2 and iv antibiotics BGM, sq insulin prn PULM, Cardiology f/u high LFT; liver mass c/w adenoCA metastasis from lung ONC f/u, rad tx f/u s/p port placement - chemotx per ONC when infection clear DVT pfx TEDs and SCDs prognosis guarded d/w pt and staff
--- NOTE | 2018-07-30 13:55 | PN ---
Progress Note, Physician Chief Complaint: Pt A&Ox3;lying in bed (after ambulating in hallway with help of walker and therapist); anxious, says she has had more trouble breathing today, but rodriguez not want to use the BIpap mask because it is uncomfortable. History of Present Illness: The patient is an 82 year old white female with a PMH of COPD (on 2L), Stage 3a NSCC lung cancer (currently on radiation), CAD s/p [place] (s/p cardiac stent x3), HTN, HLD was BIBEMS for acute onset of shortness of breath. Patient was completing her first radiation treatment today when she suddenly became short of breath. Denies chest pain, lightheadedness, nausea, diaphoresis. Grandson @ bedside assists in history, notes patient has been taking her Albuterol inhaler multiple times daily. Recent medication addition of Symbicort to her daily regimen. History limited as patient tachycardic, tachypneic @ presentation. NKDA Surgical: Cardiac Stent x3, lung biopsy PMD: Dr. Mary Beth Stein Cardiology: Dr. Bah Pulmonology: Dr. Kern/Dr. Velazquez - Current Medication List Current Medications: Active Medications Acetaminophen (Tylenol -) 650 mg PO Q6H PRN PRN Reason: PAIN Last Admin: 07/28/18 09:43 Dose: 650 mg Albuterol Sulfate (Ventolin 0.083% Nebulizer Soln -) 1 amp NEB RQ4H JOHN Last Admin: 07/30/18 11:35 Dose: 1 amp Alprazolam (Xanax -) 0.25 mg PO Q8H PRN PRN Reason: ANXIETY Last Admin: 07/28/18 03:57 Dose: 0.25 mg Budesonide/Formoterol Fumarate (Symbicort 80/4.5mcg -) 2 puff IH BID [facility] Last Admin: 07/30/18 10:47 Dose: 2 puff Furosemide (Lasix -) 20 mg PO DAILY [facility] Last Admin: 07/30/18 10:46 Dose: 20 mg Gabapentin (Neurontin -) 100 mg PO DAILY [facility] Last Admin: 07/30/18 10:46 Dose: 100 mg Guaifenesin (Robitussin -) 10 ml PO Q6H PRN PRN Reason: COUGH Last Admin: 07/28/18 09:44 Dose: 10 ml Guaifenesin (Mucinex -) 600 mg PO BID [facility] Last Admin: 07/30/18 10:46 Dose: 600 mg Azithromycin (Zithromax 500mg Ivpb (Pre-Docked)) 500 mg in 250 mls @ 250 mls/ hr IVPB DAILY [facility] Last Admin: 07/30/18 10:45 Dose: 250 mls/hr Ceftriaxone Sodium 1 gm/ (Dextrose) 50 mls @ 100 mls/hr IVPB DAILY [facility] Last Admin: 07/30/18 10:45 Dose: 100 mls/hr Insulin Aspart (Novolog Vial Sliding Scale -) 1 vial SQ ACHS [facility]; Protocol Last Admin: 07/30/18 12:29 Dose: 12 units Lactobacillus Acidophilus (Bacid -) 1 tab PO DAILY [facility] Last Admin: 07/30/18 10:46 Dose: 1 tab Methylprednisolone Sodium Succinate (Solu-Medrol -) 40 mg IVPUSH Q6H-IV [facility] Last Admin: 07/30/18 10:45 Dose: 40 mg Metoprolol Tartrate (Lopressor -) 25 mg PO BID [facility] Last Admin: 07/30/18 10:46 Dose: 25 mg Pantoprazole Sodium (Protonix -) 40 mg PO DAILY [facility] Last Admin: 07/30/18 10:46 Dose: 40 mg Ranitidine HCl (Zantac -) 150 mg PO DAILY [facility] Last Admin: 07/30/18 10:46 Dose: 150 mg Rosuvastatin Calcium (Crestor -) 20 mg PO HS [facility] Last Admin: 07/29/18 21:19 Dose: 20 mg Tiotropium [place] (Spiriva Respimat) 2 puff IH DAILY [facility] Last Admin: 07/30/18 10:47 Dose: 2 puff - Objective Vital Signs: Vital Signs Temperature 98 F 07/30/18 09:00 Pulse Rate 98 H 07/30/18 09:00 Respiratory Rate 20 07/30/18 09:00 Blood Pressure 134/68 07/30/18 09:00 O2 Sat by Pulse Oximetry (%) 96 07/29/18 21:00 Constitutional: Yes: Anxious, Thin Eyes: Yes: WNL HENT: Yes: WNL Neck: Yes: WNL Cardiovascular: Yes: Tachycardia, S1, S2 Respiratory: Yes: Diminished, Poor Air Entry, SOB, Tachypnea Gastrointestinal: Yes: Soft ...Rectal Exam: Yes: Deferred Genitourinary: No: Anuria Breast(s): Yes: WNL Musculoskeletal: Yes: Muscle Weakness Extremities: Yes: Cool Edema: No Peripheral Pulses WNL: Yes Neurological: Yes: Alert, Oriented, Weakness Labs: CBC, BMP 07/30/18 06:30 INR, PTT INR 1.01 (0.83-1.09) 07/08/18 16:43 Abnormal Lab Results 07/30/18 07/30/18 07/30/18 06:30 06:30 13:00 WBC 13.1 H RBC 3.37 L Hgb 10.0 L Hct 30.1 L RDW 17.5 H Plt Count 54 L Absolute Neuts (auto) 12.8 H Neutrophils % 97.9 H Neutrophils % (Manual) 99.0 H Lymphocytes % 1.0 L D Lymphocytes % (Manual) 1.0 L Monocytes % 1.0 L Monocytes % (Manual) 0 L Carbon Dioxide 36 H Anion Gap 6 L BUN 43 H Random Glucose 193 H 351 H* ALT 82 H Total Protein 5.5 L Albumin 3.0 L - ....Imaging Chest X-ray: Image Reviewed Cat Scan: Image Reviewed EKG: Image Reviewed Other: Image Reviewed (telemetry: NSR; periods of sinus tachycardia) Problem List - Problems (1) Elevated troponin I level Assessment/Plan: 0.02-->0.21-->0.19; normal CK EKG: sinus tachycardia; nonspecific STT changes; HR has since improved (for repeat EKG). Pt likely has demand ischemia from exacerbation of COPD, diastolic CHF, CA, tachycardia. Given pt's advanced lung CA, would recommend conservative management of cardiac condition (she is on metoprolol, statin, ASA). Code(s): R74.8 - ABNORMAL LEVELS OF OTHER SERUM ENZYMES (2) Adenocarcinoma, lung Assessment/Plan: advanced COPD and lung CA (with metastases to bone and liver) CT chest: Rt lesion with local destruction of ribs; left stable lesion; bilateral pleural effusion. F/u with oncologist, technical illustrator. Abdomnal/pelvic CT: small pleural effusions. Diverticulosis and gallstones (no acute processes). On antibiotics. s/p liver biopsy, which showed metastasis. s/p cath for planned chemotherapy. Planned for further RT. Code(s): C34.90 - MALIGNANT NEOPLASM OF UNSP PART OF UNSP BRONCHUS OR LUNG (3) Shortness of breath Assessment/Plan: Lung CA; COPD; diastolic CHF. CT chest 07/27/18 (mass with right-sided rib destruction; LLL consolidation and suspicion for metastases; small bilateral pleural effusions; no PE or thoracic aortic aneuysm), CXR results of 07/28/18 noted. F/u today's CXR (rising BUN; on furosemide). On antibiotics. Code(s): R06.02 - SHORTNESS OF BREATH (4) HTN (hypertension) Assessment/Plan: On metoprolol and furosemide. Code(s): I10 - ESSENTIAL (PRIMARY) HYPERTENSION (5) Hyperlipidemia Assessment/Plan: on statin Code(s): E78.5 - HYPERLIPIDEMIA, UNSPECIFIED (6) Acute on chronic diastolic CHF (congestive heart failure) Assessment/Plan: On metoprolol and Furosemide f/u BUn/Cr, electrolytes, daily weight, Is and Os. Code(s): I50.33 - ACUTE ON CHRONIC DIASTOLIC (CONGESTIVE) HEART FAILURE (7) Thrombocytopenia Assessment/Plan: Developed during this admission. Off ASA; platelets remain low (now 54). Code(s): D69.6 - THROMBOCYTOPENIA, UNSPECIFIED (8) Tachycardia Assessment/Plan: Periods of sinus tachycardia, with emotional stress, metabolic process of CA, dyspnea, CHF, dehydration some of the contributing factors. 22:00 Addendum: Pt noted to be in atrial fibrillation with RVR; reportedly no significant change in symptoms; BP has decreased to 104/70 mmHg, which is not unexpected given the arrhythmia and its rapidity. On metoprolol tartrate 25 mg bid. Metoprolol tartrate 5 mg IVP q 4h IVP prn added. If HR control remains difficult , and BP allows, will add diltiazem; otherwise, will start digoxin. F/u BP and HR. Start anticoagulant (Lovenox 40 mg bid). Code(s): R00.0 - TACHYCARDIA, UNSPECIFIED
--- NOTE | 2018-07-30 14:08 | PN ---
Progress Note (short form) - Note Progress Note: PULMONARY Still with shortness of breath, chest tightness, wheezing. Dyspneic with minimal exertion. Vital Signs Period Temp Pulse Resp BP Sys/[place] Pulse Ox Last 24 Hr 97.9 F-98.3 F 82-102 20-20 122-148/48-68 96-98 Gen: NAD at rest Heart: RRR Lung: distant breath sounds Abd: soft, nontender Ext: no edema CBC, BMP 07/30/18 06:30 07/30/18 13:00 Active Medications Acetaminophen (Tylenol -) 650 mg PO Q6H PRN PRN Reason: PAIN Last Admin: 07/28/18 09:43 Dose: 650 mg Albuterol Sulfate (Ventolin 0.083% Nebulizer Soln -) 1 amp NEB RQ4H JOHN Last Admin: 07/30/18 11:35 Dose: 1 amp Alprazolam (Xanax -) 0.25 mg PO Q8H PRN PRN Reason: ANXIETY Last Admin: 07/28/18 03:57 Dose: 0.25 mg Budesonide/Formoterol Fumarate (Symbicort 80/4.5mcg -) 2 puff IH BID [facility] Last Admin: 07/30/18 10:47 Dose: 2 puff Furosemide (Lasix -) 20 mg PO DAILY [facility] Last Admin: 07/30/18 10:46 Dose: 20 mg Gabapentin (Neurontin -) 100 mg PO DAILY [facility] Last Admin: 07/30/18 10:46 Dose: 100 mg Guaifenesin (Robitussin -) 10 ml PO Q6H PRN PRN Reason: COUGH Last Admin: 07/28/18 09:44 Dose: 10 ml Guaifenesin (Mucinex -) 600 mg PO BID [facility] Last Admin: 07/30/18 10:46 Dose: 600 mg Azithromycin (Zithromax 500mg Ivpb (Pre-Docked)) 500 mg in 250 mls @ 250 mls/ hr IVPB DAILY [facility] Last Admin: 07/30/18 10:45 Dose: 250 mls/hr Ceftriaxone Sodium 1 gm/ (Dextrose) 50 mls @ 100 mls/hr IVPB DAILY [facility] Last Admin: 07/30/18 10:45 Dose: 100 mls/hr Insulin Aspart (Novolog Vial Sliding Scale -) 1 vial SQ ACHS [facility]; Protocol Last Admin: 07/30/18 12:29 Dose: 12 units Lactobacillus Acidophilus (Bacid -) 1 tab PO DAILY [facility] Last Admin: 07/30/18 10:46 Dose: 1 tab Methylprednisolone Sodium Succinate (Solu-Medrol -) 40 mg IVPUSH Q6H-IV [facility] Last Admin: 07/30/18 10:45 Dose: 40 mg Metoprolol Tartrate (Lopressor -) 25 mg PO BID [facility] Last Admin: 07/30/18 10:46 Dose: 25 mg Pantoprazole Sodium (Protonix -) 40 mg PO DAILY [facility] Last Admin: 07/30/18 10:46 Dose: 40 mg Ranitidine HCl (Zantac -) 150 mg PO DAILY [facility] Last Admin: 07/30/18 10:46 Dose: 150 mg Rosuvastatin Calcium (Crestor -) 20 mg PO HS [facility] Last Admin: 07/29/18 21:19 Dose: 20 mg Tiotropium [place] (Spiriva Respimat) 2 puff IH DAILY [facility] Last Admin: 07/30/18 10:47 Dose: 2 puff A/P Acute COPD Exacerbation s/p RT session NSCLC - Adenocarcinoma LV Diastolic Dysfunction HTN Hypothyroidism Hyperlipidemia - continue medrol at current dose - inhaled bronchodilators - BiPAP as needed to assist in work of breathing - on empiric antibiotics - O2 to keep SpO2 >90% - rehab/PT - DVT prophylaxis
--- NOTE | 2018-07-30 17:46 | PN ---
Progress Note (short form) - Note Progress Note: Patient seen and examined Remains SOB , dyspneic on minimal movements Denies chest pains Last Vital Signs Temp Pulse Resp BP Pulse Ox 97.5 F L 101 H 20 157/73 98 07/30/18 14:55 07/30/18 14:55 07/30/18 14:55 07/30/18 14:55 07/30/18 09:00 HEENT: KEIRY, EOM Intact Oropharynx: No thrush, No mucositis, dentures Cor: RSR, No murmurs, No gallops Lungs:rales, diminished breath sounds Abd: Soft, Normal bowel sounds, No organomegaly Ext:No significant edema Skin: No rashes, Integument intact CBC, BMP 07/30/18 06:30 07/30/18 13:00 Current Medications Generic Name Dose Route Start Last Admin Trade Name Freq PRN Reason Stop Dose Admin Acetaminophen 650 mg 07/08/18 19:43 07/28/18 09:43 Tylenol - PO 650 mg Q6H PRN Administration PAIN Albuterol Sulfate 1 amp 07/28/18 12:00 07/30/18 16:10 Ventolin 0.083% Nebulizer Soln - NEB 1 amp RQ4H JOHN Administration Alprazolam 0.25 mg 07/26/18 20:13 07/28/18 03:57 Xanax - PO 0.25 mg Q8H PRN Administration ANXIETY Budesonide/Formoterol Fumarate 2 puff 07/10/18 22:00 07/30/18 10:47 Symbicort 80/4.5mcg - IH 2 puff BID JOHN Administration Furosemide 20 mg 07/11/18 10:00 07/30/18 10:46 Lasix - PO 20 mg DAILY JOHN Administration Gabapentin 100 mg 07/15/18 20:00 07/30/18 10:46 Neurontin - PO 100 mg DAILY JOHN Administration Guaifenesin 10 ml 07/08/18 19:43 07/28/18 09:44 Robitussin - PO 10 ml Q6H PRN Administration COUGH Guaifenesin 600 mg 07/28/18 10:00 07/30/18 10:46 Mucinex - PO 600 mg BID JOHN Administration Azithromycin 500 mg in 250 mls @ 250 mls/hr 07/29/18 10:00 07/30/18 10:45 Zithromax 500mg Ivpb (Pre-Docked) IVPB 250 mls/hr DAILY [facility] Administration Ceftriaxone Sodium 1 gm/ 50 mls @ 100 mls/hr 07/29/18 10:00 07/30/18 10:45 Dextrose IVPB 100 mls/hr DAILY [facility] Administration Insulin Aspart 1 vial 07/08/18 22:00 07/30/18 12:29 Novolog Vial Sliding Scale - SQ 12 units ACHS JOHN Administration Protocol Insulin Aspart 1 vial 07/30/18 16:30 07/30/18 16:48 Novolog Vial Sliding Scale - SQ Not Given ACHS JOHN Protocol Lactobacillus Acidophilus 1 tab 07/29/18 10:00 07/30/18 10:46 Bacid - PO 1 tab DAILY [facility] Administration Methylprednisolone Sodium Succinate 40 mg 07/28/18 09:00 07/30/18 14:12 Solu-Medrol - IVPUSH 40 mg Q6H-IV JOHN Administration Metoprolol Tartrate 25 mg 07/08/18 22:00 07/30/18 10:46 Lopressor - PO 25 mg BID JOHN Administration Pantoprazole Sodium 40 mg 07/11/18 23:00 07/30/18 10:46 Protonix - PO 40 mg DAILY [facility] Administration Ranitidine HCl 150 mg 07/09/18 10:00 07/30/18 10:46 Zantac - PO 150 mg DAILY [facility] Administration Rosuvastatin Calcium 20 mg 07/08/18 22:00 07/29/18 21:19 Crestor - PO 20 mg HS JOHN Administration Tiotropium [place] 2 puff 07/09/18 10:00 07/30/18 10:47 Spiriva Respimat IH 2 puff DAILY JOHN Administration Impression Excerbation of COPD initiated at time of first RT treatment: [place] of lung Bone mets Biopsy proven liver mets Anemia Pneumonia Plan: Continued therapy for COPD, pneumonia RT in future.
[2018-07-30] MEDS: ROSUVASTATIN CA 20 MG TABLET (FP) PO SCH (21:20)
[2018-07-30] MEDS ORDERED: METOPROLOL TARTRATE 5 MG/5 ML VIAL ONE (22:54)
[2018-07-30] MEDS: METOPROLOL TARTRATE 5 MG/5 ML VIAL IVPUSH PRN (23:01)
[2018-07-30] MEDS ORDERED: METOPROLOL TARTRATE 5 MG/5 ML VIAL IVPUSH ONE (23:30)
[2018-07-30] MEDS: ENOXAPARIN NA (PORCINE) 40 MG/0.4 ML DISP.SYRIN SQ SCH (23:34)
[2018-07-31] MEDS ORDERED: dilTIAZem HCL 50 MG/10 ML - 10 ML VIAL IVPUSH ONE ×3 (00:03→01:15)
[2018-07-31] MEDS: ALPRAZolam 0.25 MG TABLET PO PRN (00:38)
[2018-07-31] MEDS: dilTIAZem HCL 30 MG TABLET (FP) PO SCH ×4 (01:14→22:59)
[2018-07-31] MEDS ORDERED: DIGOXIN 0.5 MG/2 ML AMPUL IVPUSH ONE (01:53)
[2018-07-31] MEDS: methylPREDNISolone NA SUCC 40 MG/1 ML VIAL IVPUSH SCH ×4 (02:44→23:00)
[2018-07-31] MEDS: ALBUTEROL SO4 0.083% IH SOL 2.5 MG/3 ML VIAL.NEB. NEB SCH ×5 (04:55→20:48)
--- NOTE | 2018-07-31 06:29 | PN ---
Progress Note, Physician Chief Complaint: had RAFib over night, SOB, cough, feels like she has a lot aof sputum but can't bring it up; received nebs, O2, ,ucinex, was on bipap prn; no hemoptysis has bilateral CP with cough; afebrile - Current Medication List Current Medications: Active Medications Acetaminophen (Tylenol -) 650 mg PO Q6H PRN PRN Reason: PAIN Last Admin: 07/28/18 09:43 Dose: 650 mg Albuterol Sulfate (Ventolin 0.083% Nebulizer Soln -) 1 amp NEB RQ4H [facility] Last Admin: 07/31/18 04:55 Dose: 1 amp Alprazolam (Xanax -) 0.25 mg PO Q8H PRN PRN Reason: ANXIETY Last Admin: 07/31/18 00:38 Dose: 0.25 mg Budesonide/Formoterol Fumarate (Symbicort 80/4.5mcg -) 2 puff IH BID [facility] Last Admin: 07/30/18 21:31 Dose: 2 puff Diltiazem HCl (Cardizem -) 30 mg PO TID [facility] Last Admin: 07/31/18 01:14 Dose: 30 mg Enoxaparin Sodium (Lovenox -) 40 mg SQ BID [facility] Last Admin: 07/30/18 23:34 Dose: 40 mg Furosemide (Lasix -) 20 mg PO DAILY [facility] Last Admin: 07/30/18 10:46 Dose: 20 mg Gabapentin (Neurontin -) 100 mg PO DAILY [facility] Last Admin: 07/30/18 10:46 Dose: 100 mg Guaifenesin (Robitussin -) 10 ml PO Q6H PRN PRN Reason: COUGH Last Admin: 07/28/18 09:44 Dose: 10 ml Guaifenesin (Mucinex -) 600 mg PO BID [facility] Last Admin: 07/30/18 21:20 Dose: 600 mg Azithromycin (Zithromax 500mg Ivpb (Pre-Docked)) 500 mg in 250 mls @ 250 mls/ hr IVPB DAILY [facility] Last Admin: 07/30/18 10:45 Dose: 250 mls/hr Ceftriaxone Sodium 1 gm/ (Dextrose) 50 mls @ 100 mls/hr IVPB DAILY [facility] Last Admin: 07/30/18 10:45 Dose: 100 mls/hr Insulin Aspart (Novolog Vial Sliding Scale -) 1 vial SQ ACHS [facility]; Protocol Last Admin: 07/30/18 16:48 Dose: Not Given Lactobacillus Acidophilus (Bacid -) 1 tab PO DAILY [facility] Last Admin: 07/30/18 10:46 Dose: 1 tab Methylprednisolone Sodium Succinate (Solu-Medrol -) 40 mg IVPUSH Q6H-IV [facility] Last Admin: 07/31/18 02:44 Dose: 40 mg Metoprolol Tartrate (Lopressor -) 25 mg PO BID [facility] Last Admin: 07/30/18 21:20 Dose: 25 mg Metoprolol Tartrate (Lopressor Injection -) 5 mg IVPUSH Q4H PRN PRN Reason: HYPERTENSION Last Admin: 07/30/18 23:01 Dose: 5 mg Pantoprazole Sodium (Protonix -) 40 mg PO DAILY [facility] Last Admin: 07/30/18 10:46 Dose: 40 mg Ranitidine HCl (Zantac -) 150 mg PO DAILY [facility] Last Admin: 07/30/18 10:46 Dose: 150 mg Rosuvastatin Calcium (Crestor -) 20 mg PO HS [facility] Last Admin: 07/30/18 21:20 Dose: 20 mg Tiotropium [place] (Spiriva Respimat) 2 puff IH DAILY [facility] Last Admin: 07/30/18 10:47 Dose: 2 puff - Objective Vital Signs: Vital Signs Temperature 98 F 07/31/18 01:36 Pulse Rate 143 H 07/31/18 02:22 Respiratory Rate 20 07/31/18 01:36 Blood Pressure 115/80 07/31/18 01:36 O2 Sat by Pulse Oximetry (%) 96 07/30/18 21:00 Constitutional: Yes: Anxious Eyes: Yes: Conjunctiva Clear HENT: Yes: Atraumatic Neck: Yes: Supple Cardiovascular: Yes: Tachycardia Respiratory: Yes: Rales, Rhonchi, Wheezes Gastrointestinal: Yes: Soft. No: Tenderness Genitourinary: No: Hematuria Musculoskeletal: No: Joint Stiffness, Joint Swelling Extremities: No: Cold, Cool Edema: No Integumentary: No: Rash, Venous Stasis Changes Neurological: Yes: WNL, Alert, Oriented ...Motor Strength: WNL Psychiatric: Yes: WNL, Alert, Oriented. No: Agitated, Suicidal Ideation Labs: CBC, BMP 07/30/18 06:30 07/30/18 13:00 INR, PTT INR 1.01 (0.83-1.09) 07/08/18 16:43 - ....Imaging Other: Report Reviewed Assessment/Plan The patient is an 82 year old female with a PMH of COPD (on 2L), Stage 3a NSCC ( currently on radiation), CAD s/p [place] (s/p cardiac stent x3), HTN, HLD \admitted with acute onset of shortness of breath, acute on chronic COPD exac and bronchitis, new L sided PNA and metastatic ds lung, liver bones; borderline + troponins h/o ASHD stent, high BNP h/o CHF low EF, s/p one episode of hemoptysis , now new onset rapid AFib, low Platelets iv steroids, nebs, O2 and iv antibiotics BGM, sq insulin prn PULM, Cardiology f/u HR control; started on sq lovenox bid ONC f/u, rad tx f/u s/p port placement - for chemotx per ONC when infection clear falls PFX prognosis guarded d/w pt and staff d/w Igor pt's grand son
[2018-07-31 06:42] LABS: BASO % 0.1 % (0-2.0); HEMATOCRIT 29.6 % (32.4-45.2); HEMOGLOBIN 9.7 GM/dL (10.7-15.3); MCH 29.5 pg (25.7-33.7); MCHC 32.8 g/dl (32.0-36.0); MEAN PLT VOLUME 10.6 fl (7.5-11.1); MONO % 1.5 % (3.8-10.2); NEUT % 97.4 % (42.8-82.8); PLATELET COUNT 57 K/MM3 (134-434); RBC 3.29 M/mm3 (3.60-5.2); RDW 18.4 % (11.6-15.6); WHITE BLOOD COUNT 14.1 K/mm3 (4.0-10.0)
[2018-07-31] MEDS: INSULIN SLIDING SCALE (NOVOLOG) 1 VIAL SQ SCH ×4 (06:59→23:01)
[2018-07-31 07:34] LABS: ALBUMIN 2.9 g/dl (3.4-5.0); ALK PHOS 60 U/L (45-117); ANION GAP 3 MMOL/L (8-16); BILIRUBIN,TOTAL 0.4 mg/dL (0.2-1); BLOOD UREA NITROGEN 52 mg/dL (7-18); CALCIUM 8.9 mg/dL (8.5-10.1); CHLORIDE 100 mmol/L (98-107); CO2 39 mmol/L (21-32); CREATININE 0.7 mg/dL (0.55-1.3); GLUCOSE,RANDOM 134 mg/dL (74-106); POTASSIUM 4.2 mmol/L (3.5-5.1); SGOT/AST 28 U/L (15-37); SGPT/ALT 92 U/L (13-61); SODIUM 142 mmol/L (136-145); TOT PROT 5.4 g/dl (6.4-8.2)
[2018-07-31] MEDS ORDERED: DEXTROSE 5%-WATER - 50 ML IVPB ONE (08:39)
[2018-07-31] MEDS ORDERED: cefTRIAXone SODIUM 1 GM VIAL ONE (08:39)
[2018-07-31] MEDS: CEFTRIAXONE 1 GM in DEXTROSE 5%-WATER - 50 ML IVPB SCH (09:52)
[2018-07-31] MEDS: AZITHROMYCIN IVPB 500 MG/250 ML BAG IVPB SCH (09:52)
[2018-07-31] MEDS: ENOXAPARIN NA (PORCINE) 40 MG/0.4 ML DISP.SYRIN SQ SCH ×2 (09:58→22:59)
[2018-07-31] MEDS: METOPROLOL TARTRATE 25 MG TABLET (FP) PO SCH ×2 (09:58→22:59)
[2018-07-31] MEDS: guaiFENesin 600 MG TABLET.ER (FP) PO SCH ×2 (09:58→22:59)
[2018-07-31] MEDS: LACTOBACILLUS ACIDOPHILUS 1 TABLET PO SCH (09:58)
[2018-07-31] MEDS: GABAPENTIN 100 MG CAPSULE (FP) PO SCH (09:58)
[2018-07-31] MEDS: RANITIDINE HCL 150 MG TABLET (FP) PO SCH (09:58)
[2018-07-31] MEDS: FUROSEMIDE 20 MG TABLET (FP) PO SCH (09:58)
[2018-07-31] MEDS: PANTOPRAZOLE 40 MG TABLET (FP) PO SCH (09:58)
[2018-07-31] MEDS: TIOTROPIUM BROMIDE 2.5 MCG (SPIRIVA) RESPIMAT INHALER IH SCH (09:59)
[2018-07-31] MEDS: BUDESONIDE/FORMETEROL FUMARATE 80/4.5 mcg INHALER IH SCH ×2 (09:59→23:07)
--- NOTE | 2018-07-31 10:43 | PN ---
Progress Note, Physician History of Present Illness: pulmonary alert,dyspneic,remains in rapid afib - Current Medication List Current Medications: Active Medications Acetaminophen (Tylenol -) 650 mg PO Q6H PRN PRN Reason: PAIN Last Admin: 07/28/18 09:43 Dose: 650 mg Albuterol Sulfate (Ventolin 0.083% Nebulizer Soln -) 1 amp NEB RQ4H [facility] Last Admin: 07/31/18 08:53 Dose: 1 amp Alprazolam (Xanax -) 0.25 mg PO Q8H PRN PRN Reason: ANXIETY Last Admin: 07/31/18 00:38 Dose: 0.25 mg Budesonide/Formoterol Fumarate (Symbicort 80/4.5mcg -) 2 puff IH BID [facility] Last Admin: 07/31/18 09:59 Dose: 2 puff Diltiazem HCl (Cardizem -) 30 mg PO TID [facility] Last Admin: 07/31/18 06:52 Dose: 30 mg Enoxaparin Sodium (Lovenox -) 40 mg SQ BID [facility] Last Admin: 07/31/18 09:58 Dose: 40 mg Furosemide (Lasix -) 20 mg PO DAILY [facility] Last Admin: 07/31/18 09:58 Dose: 20 mg Gabapentin (Neurontin -) 100 mg PO DAILY [facility] Last Admin: 07/31/18 09:58 Dose: 100 mg Guaifenesin (Robitussin -) 10 ml PO Q6H PRN PRN Reason: COUGH Last Admin: 07/28/18 09:44 Dose: 10 ml Guaifenesin (Mucinex -) 600 mg PO BID [facility] Last Admin: 07/31/18 09:58 Dose: 600 mg Azithromycin (Zithromax 500mg Ivpb (Pre-Docked)) 500 mg in 250 mls @ 250 mls/ hr IVPB DAILY [facility] Last Admin: 07/31/18 09:52 Dose: 250 mls/hr Ceftriaxone Sodium 1 gm/ (Dextrose) 50 mls @ 100 mls/hr IVPB DAILY [facility] Last Admin: 07/31/18 09:52 Dose: 100 mls/hr Insulin Aspart (Novolog Vial Sliding Scale -) 1 vial SQ ACHS [facility]; Protocol Last Admin: 07/31/18 06:59 Dose: 2 units Lactobacillus Acidophilus (Bacid -) 1 tab PO DAILY [facility] Last Admin: 07/31/18 09:58 Dose: 1 tab Methylprednisolone Sodium Succinate (Solu-Medrol -) 40 mg IVPUSH Q6H-IV [facility] Last Admin: 07/31/18 09:52 Dose: 40 mg Metoprolol Tartrate (Lopressor -) 25 mg PO BID [facility] Last Admin: 07/31/18 09:58 Dose: 25 mg Metoprolol Tartrate (Lopressor Injection -) 5 mg IVPUSH Q4H PRN PRN Reason: HYPERTENSION Last Admin: 07/30/18 23:01 Dose: 5 mg Pantoprazole Sodium (Protonix -) 40 mg PO DAILY [facility] Last Admin: 07/31/18 09:58 Dose: 40 mg Ranitidine HCl (Zantac -) 150 mg PO DAILY [facility] Last Admin: 07/31/18 09:58 Dose: 150 mg Rosuvastatin Calcium (Crestor -) 20 mg PO HS [facility] Last Admin: 07/30/18 21:20 Dose: 20 mg Tiotropium [place] (Spiriva Respimat) 2 puff IH DAILY [facility] Last Admin: 07/31/18 09:59 Dose: 2 puff - Objective Vital Signs: Vital Signs Temperature 98.2 F 07/31/18 06:00 Pulse Rate 136 H 07/31/18 06:00 Respiratory Rate 20 07/31/18 06:00 Blood Pressure 105/60 07/31/18 06:00 O2 Sat by Pulse Oximetry (%) 96 07/30/18 21:00 Constitutional: Yes: Calm, Thin Eyes: Yes: WNL HENT: Yes: WNL Neck: Yes: WNL Cardiovascular: Yes: Tachycardia, Pulse Irregular, S1, S2 Respiratory: Yes: Diminished Gastrointestinal: Yes: Normal Bowel Sounds, Soft Extremities: Yes: WNL Edema: No Labs: CBC, BMP 07/31/18 05:30 07/31/18 05:30 INR, PTT INR 1.01 (0.83-1.09) 07/08/18 16:43 Assessment/Plan Problem List - Problems (1) Adenocarcinoma, lung Code(s): C34.90 - MALIGNANT NEOPLASM OF UNSP PART OF UNSP BRONCHUS OR LUNG (2) ASHD (arteriosclerotic heart disease) Code(s): I25.10 - ATHSCL HEART DISEASE OF [place] CORONARY ARTERY W/O ANG PCTRS (3) Anxiety and depression Code(s): F41.9 - ANXIETY DISORDER, UNSPECIFIED; F32.9 - MAJOR DEPRESSIVE DISORDER, SINGLE EPISODE, UNSPECIFIED (4) COPD (chronic obstructive pulmonary disease) Code(s): J44.9 - CHRONIC OBSTRUCTIVE PULMONARY DISEASE, UNSPECIFIED Qualifiers: COPD type: unspecified COPD Qualified Code(s): J44.9 - Chronic obstructive pulmonary disease, unspecified (5) COPD exacerbation Code(s): J44.1 - CHRONIC OBSTRUCTIVE PULMONARY DISEASE W (ACUTE) EXACERBATION (6) Cough Code(s): R05 - COUGH (7) Diastolic CHF Code(s): I50.30 - UNSPECIFIED DIASTOLIC (CONGESTIVE) HEART FAILURE (8) HTN (hypertension) Code(s): I10 - ESSENTIAL (PRIMARY) HYPERTENSION (9) Hyperlipidemia Code(s): E78.5 - HYPERLIPIDEMIA, UNSPECIFIED (10) Hypothyroid Code(s): E03.9 - HYPOTHYROIDISM, UNSPECIFIED (11) Shortness of breath Code(s): R06.02 - SHORTNESS OF BREATH A/P Acute COPD Exacerbation s/p RT session NSCLC - Adenocarcinoma mets to rib/liver LV Diastolic Dysfunction AFIB HTN Hypothyroidism Hyperlipidemia - medrol - inhaled bronchodilators - on empiric antibiotics - O2 to keep SpO2 >90% - rehab/PT - DVT prophylaxis - continue bipap as needed - AC - rate control as per cardiology DR CARDOSO
[2018-07-31] MEDS ORDERED: DIGOXIN 0.25 MG TABLET (FP) PO ONE (15:40)
--- NOTE | 2018-07-31 15:40 | PN ---
Progress Note, Physician History of Present Illness: The patient is an 82 year old white female with a PMH of COPD (on 2L), Stage 3a NSCC lung cancer (currently on radiation), CAD s/p [place] (s/p cardiac stent x3), HTN, HLD was BIBEMS for acute onset of shortness of breath. Patient was completing her first radiation treatment today when she suddenly became short of breath. Denies chest pain, lightheadedness, nausea, diaphoresis. Grandson @ bedside assists in history, notes patient has been taking her Albuterol inhaler multiple times daily. Recent medication addition of Symbicort to her daily regimen. History limited as patient tachycardic, tachypneic @ presentation. NKDA Surgical: Cardiac Stent x3, lung biopsy PMD: Dr. Mary Beth Stein Cardiology: Dr. Bah Pulmonology: Dr. Kern/Dr. Velazquez - Current Medication List Current Medications: Active Medications Acetaminophen (Tylenol -) 650 mg PO Q6H PRN PRN Reason: PAIN Last Admin: 07/28/18 09:43 Dose: 650 mg Albuterol Sulfate (Ventolin 0.083% Nebulizer Soln -) 1 amp NEB RQ4H [facility] Last Admin: 07/31/18 12:11 Dose: 1 amp Alprazolam (Xanax -) 0.25 mg PO Q8H PRN PRN Reason: ANXIETY Last Admin: 07/31/18 00:38 Dose: 0.25 mg Budesonide/Formoterol Fumarate (Symbicort 80/4.5mcg -) 2 puff IH BID [facility] Last Admin: 07/31/18 09:59 Dose: 2 puff Diltiazem HCl (Cardizem -) 30 mg PO TID [facility] Last Admin: 07/31/18 13:35 Dose: 30 mg Enoxaparin Sodium (Lovenox -) 40 mg SQ BID [facility] Last Admin: 07/31/18 09:58 Dose: 40 mg Furosemide (Lasix -) 20 mg PO DAILY [facility] Last Admin: 07/31/18 09:58 Dose: 20 mg Gabapentin (Neurontin -) 100 mg PO DAILY [facility] Last Admin: 07/31/18 09:58 Dose: 100 mg Guaifenesin (Robitussin -) 10 ml PO Q6H PRN PRN Reason: COUGH Last Admin: 07/28/18 09:44 Dose: 10 ml Guaifenesin (Mucinex -) 600 mg PO BID [facility] Last Admin: 07/31/18 09:58 Dose: 600 mg Azithromycin (Zithromax 500mg Ivpb (Pre-Docked)) 500 mg in 250 mls @ 250 mls/ hr IVPB DAILY [facility] Last Admin: 07/31/18 09:52 Dose: 250 mls/hr Ceftriaxone Sodium 1 gm/ (Dextrose) 50 mls @ 100 mls/hr IVPB DAILY [facility] Last Admin: 07/31/18 09:52 Dose: 100 mls/hr Insulin Aspart (Novolog Vial Sliding Scale -) 1 vial SQ ACHS [facility]; Protocol Last Admin: 07/31/18 12:14 Dose: 10 units Lactobacillus Acidophilus (Bacid -) 1 tab PO DAILY [facility] Last Admin: 07/31/18 09:58 Dose: 1 tab Methylprednisolone Sodium Succinate (Solu-Medrol -) 40 mg IVPUSH Q6H-IV [facility] Last Admin: 07/31/18 14:16 Dose: 40 mg Metoprolol Tartrate (Lopressor -) 25 mg PO BID [facility] Last Admin: 07/31/18 09:58 Dose: 25 mg Metoprolol Tartrate (Lopressor Injection -) 5 mg IVPUSH Q4H PRN PRN Reason: HYPERTENSION Last Admin: 07/30/18 23:01 Dose: 5 mg Pantoprazole Sodium (Protonix -) 40 mg PO DAILY [facility] Last Admin: 07/31/18 09:58 Dose: 40 mg Ranitidine HCl (Zantac -) 150 mg PO DAILY [facility] Last Admin: 07/31/18 09:58 Dose: 150 mg Rosuvastatin Calcium (Crestor -) 20 mg PO HS [facility] Last Admin: 07/30/18 21:20 Dose: 20 mg Tiotropium [place] (Spiriva Respimat) 2 puff IH DAILY [facility] Last Admin: 07/31/18 09:59 Dose: 2 puff - Objective Vital Signs: Vital Signs Temperature 97.6 F 07/31/18 14:00 Pulse Rate 128 H 07/31/18 14:00 Respiratory Rate 20 07/31/18 10:00 Blood Pressure 123/55 L 07/31/18 14:00 O2 Sat by Pulse Oximetry (%) 96 07/30/18 21:00 Eyes: Yes: WNL, Conjunctiva Clear, EOM Intact HENT: Yes: WNL, Atraumatic, Normocephalic Neck: Yes: WNL, Supple, Trachea Midline Cardiovascular: Yes: WNL, Regular Rate and Rhythm Respiratory: Yes: WNL, Regular, CTA Bilaterally Gastrointestinal: Yes: WNL, Normal Bowel Sounds Genitourinary: Yes: WNL Musculoskeletal: Yes: WNL Extremities: Yes: WNL Edema: No Integumentary: Yes: WNL Neurological: Yes: WNL, Alert, Oriented ...Motor Strength: WNL Psychiatric: Yes: WNL Labs: CBC, BMP 07/31/18 05:30 07/31/18 05:30 INR, PTT INR 1.01 (0.83-1.09) 07/08/18 16:43 Assessment/Plan - Problems (1) Elevated troponin I level Assessment/Plan: 0.02-->0.21-->0.19; normal CK EKG: sinus tachycardia; nonspecific STT changes; HR has since improved (for repeat EKG). Pt likely has demand ischemia from exacerbation of COPD, diastolic CHF, CA, tachycardia. Given pt's advanced lung CA, would recommend conservative management of cardiac condition (she is on metoprolol, statin, ASA). Code(s): R74.8 - ABNORMAL LEVELS OF OTHER SERUM ENZYMES (2) Adenocarcinoma, lung Assessment/Plan: advanced COPD and lung CA (with metastases to bone and liver) CT chest: Rt lesion with local destruction of ribs; left stable lesion; bilateral pleural effusion. 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 Abdomnal/pelvic CT: small pleural effusions. Diverticulosis and gallstones (no acute processes). On antibiotics. s/p liver biopsy, which showed metastasis. s/p cath for planned chemotherapy. Planned for further RT. Code(s): C34.90 - MALIGNANT NEOPLASM OF UNSP PART OF UNSP BRONCHUS OR LUNG (3) Shortness of breath Assessment/Plan: Lung CA; COPD; diastolic CHF. CT chest 07/27/18 (mass with right-sided rib destruction; LLL consolidation and suspicion for metastases; small bilateral pleural effusions; no PE or thoracic aortic aneuysm), CXR results of 07/28/18 noted. F/u today's CXR (rising BUN; on furosemide). On antibiotics. Code(s): R06.02 - SHORTNESS OF BREATH (4) HTN (hypertension) Assessment/Plan: On metoprolol and furosemide. Code(s): I10 - ESSENTIAL (PRIMARY) HYPERTENSION (5) Hyperlipidemia Assessment/Plan: on statin Code(s): E78.5 - HYPERLIPIDEMIA, UNSPECIFIED (6) Acute on chronic diastolic CHF (congestive heart failure) Assessment/Plan: On metoprolol and Furosemide f/u BUn/Cr, electrolytes, daily weight, Is and Os. Code(s): I50.33 - ACUTE ON CHRONIC DIASTOLIC (CONGESTIVE) HEART FAILURE (7) Thrombocytopenia Assessment/Plan: Developed during this admission. Off ASA; platelets remain low (now 54). Code(s): D69.6 - THROMBOCYTOPENIA, UNSPECIFIED (8) Tachycardia Assessment/Plan: Periods of sinus tachycardia, with emotional stress, metabolic process of CA, dyspnea, CHF, dehydration some of the contributing factors. Pt noted to be in atrial fibrillation with RVR; with hypotension On metoprolol tartrate 25 mg bid. Metoprolol tartrate 5 mg IVP q 4h IVP prn added. If HR control remains difficult , and BP allows, will add diltiazem; otherwise, will start digoxin. F/u BP and HR. Start anticoagulant (Lovenox 40 mg bid). Code(s): R00.0 - TACHYCARDIA, UNSPECIFIED
[2018-07-31] MEDS: METOPROLOL TARTRATE 5 MG/5 ML VIAL IVPUSH PRN (17:24)
[2018-07-31] MEDS: ROSUVASTATIN CA 20 MG TABLET (FP) PO SCH (22:59)
[2018-08-01] MEDS: ALBUTEROL SO4 0.083% IH SOL 2.5 MG/3 ML VIAL.NEB. NEB SCH ×4 (00:42→11:14)
[2018-08-01] MEDS: methylPREDNISolone NA SUCC 40 MG/1 ML VIAL IVPUSH SCH ×4 (04:29→21:40)
[2018-08-01] MEDS: dilTIAZem HCL 30 MG TABLET (FP) PO SCH ×3 (05:31→21:40)
--- NOTE | 2018-08-01 06:11 | PN ---
Progress Note, Physician Chief Complaint: tight breathing; cough; bipap prn - Current Medication List Current Medications: Active Medications Acetaminophen (Tylenol -) 650 mg PO Q6H PRN PRN Reason: PAIN Last Admin: 07/28/18 09:43 Dose: 650 mg Albuterol Sulfate (Ventolin 0.083% Nebulizer Soln -) 1 amp NEB RQ4H [facility] Last Admin: 08/01/18 04:45 Dose: 1 amp Alprazolam (Xanax -) 0.25 mg PO Q8H PRN PRN Reason: ANXIETY Last Admin: 07/31/18 00:38 Dose: 0.25 mg Budesonide/Formoterol Fumarate (Symbicort 80/4.5mcg -) 2 puff IH BID [facility] Last Admin: 07/31/18 23:07 Dose: 2 puff Diltiazem HCl (Cardizem -) 30 mg PO TID [facility] Last Admin: 08/01/18 05:31 Dose: 30 mg Enoxaparin Sodium (Lovenox -) 40 mg SQ BID [facility] Last Admin: 07/31/18 22:59 Dose: 40 mg Furosemide (Lasix -) 20 mg PO DAILY [facility] Last Admin: 07/31/18 09:58 Dose: 20 mg Gabapentin (Neurontin -) 100 mg PO DAILY [facility] Last Admin: 07/31/18 09:58 Dose: 100 mg Guaifenesin (Robitussin -) 10 ml PO Q6H PRN PRN Reason: COUGH Last Admin: 07/28/18 09:44 Dose: 10 ml Guaifenesin (Mucinex -) 600 mg PO BID [facility] Last Admin: 07/31/18 22:59 Dose: 600 mg Azithromycin (Zithromax 500mg Ivpb (Pre-Docked)) 500 mg in 250 mls @ 250 mls/ hr IVPB DAILY [facility] Last Admin: 07/31/18 09:52 Dose: 250 mls/hr Ceftriaxone Sodium 1 gm/ (Dextrose) 50 mls @ 100 mls/hr IVPB DAILY [facility] Last Admin: 07/31/18 09:52 Dose: 100 mls/hr Insulin Aspart (Novolog Vial Sliding Scale -) 1 vial SQ ACHS [facility]; Protocol Last Admin: 07/31/18 23:01 Dose: 4 units Lactobacillus Acidophilus (Bacid -) 1 tab PO DAILY [facility] Last Admin: 07/31/18 09:58 Dose: 1 tab Methylprednisolone Sodium Succinate (Solu-Medrol -) 40 mg IVPUSH Q6H-IV [facility] Last Admin: 08/01/18 04:29 Dose: 40 mg Metoprolol Tartrate (Lopressor -) 25 mg PO BID [facility] Last Admin: 07/31/18 22:59 Dose: 25 mg Metoprolol Tartrate (Lopressor Injection -) 5 mg IVPUSH Q4H PRN PRN Reason: HYPERTENSION Last Admin: 07/31/18 17:24 Dose: 5 mg Pantoprazole Sodium (Protonix -) 40 mg PO DAILY [facility] Last Admin: 07/31/18 09:58 Dose: 40 mg Ranitidine HCl (Zantac -) 150 mg PO DAILY [facility] Last Admin: 07/31/18 09:58 Dose: 150 mg Rosuvastatin Calcium (Crestor -) 20 mg PO HS [facility] Last Admin: 07/31/18 22:59 Dose: 20 mg Tiotropium [place] (Spiriva Respimat) 2 puff IH DAILY [facility] Last Admin: 07/31/18 09:59 Dose: 2 puff - Objective Vital Signs: Vital Signs Temperature 97.2 F L 08/01/18 01:50 Pulse Rate 70 08/01/18 01:50 Respiratory Rate 20 08/01/18 01:50 Blood Pressure 117/55 L 08/01/18 01:50 O2 Sat by Pulse Oximetry (%) 96 08/01/18 00:49 Constitutional: Yes: Anxious Eyes: Yes: Conjunctiva Clear HENT: Yes: Atraumatic Neck: Yes: Supple Cardiovascular: Yes: Regular Rate and Rhythm Respiratory: Yes: Rales, Rhonchi Genitourinary: No: CVA Tenderness - Left, CVA Tenderness - Right, Hematuria Musculoskeletal: No: Joint Stiffness, Joint Swelling Extremities: No: Cold, Cool, Cyanosis Edema: No Integumentary: No: Rash, Venous Stasis Changes Neurological: Yes: WNL, Alert, Oriented ...Motor Strength: WNL Psychiatric: Yes: WNL, Alert, Oriented. No: Agitated, Suicidal Ideation Labs: CBC, BMP 07/31/18 05:30 07/31/18 05:30 INR, PTT INR 1.01 (0.83-1.09) 07/08/18 16:43 - ....Imaging Other: Report Reviewed Assessment/Plan The patient is an 82 year old female with a PMH of COPD (on 2L), Stage 3a NSCC ( currently on radiation), CAD s/p [place] (s/p cardiac stent x3), HTN, HLD \admitted with acute onset of shortness of breath, acute on chronic COPD exac and bronchitis, new L sided PNA and metastatic ds lung, liver bones; borderline + troponins h/o ASHD stent, high BNP h/o CHF low EF, s/p one episode of hemoptysis , now new onset rapid AFib, low Platelets iv steroids, nebs, O2 and iv antibiotics BGM, sq insulin prn PULM, Cardiology f/u HR control; started on sq lovenox bid ONC f/u, rad tx f/u s/p port placement - for chemotx per ONC when infection clear falls PFX prognosis guarded d/w pt and staff
[2018-08-01 06:19] LABS: BASO % 0.1 % (0-2.0); HEMATOCRIT 28.6 % (32.4-45.2); HEMOGLOBIN 9.5 GM/dL (10.7-15.3); LYMPH % 1.1 % (8-40); MCH 30.1 pg (25.7-33.7); MCHC 33.2 g/dl (32.0-36.0); MEAN CELL VOLUME 90.6 fl (80-96); MEAN PLT VOLUME 10.8 fl (7.5-11.1); MONO % 1.2 % (3.8-10.2); NEUT % 97.6 % (42.8-82.8); PLATELET COUNT 50 K/MM3 (134-434); RBC 3.16 M/mm3 (3.60-5.2); RDW 18.2 % (11.6-15.6); WHITE BLOOD COUNT 10.3 K/mm3 (4.0-10.0)
[2018-08-01] MEDS: INSULIN SLIDING SCALE (NOVOLOG) 1 VIAL SQ SCH ×4 (06:25→22:05)
[2018-08-01 07:24] LABS: ALK PHOS 61 U/L (45-117); ANION GAP 6 MMOL/L (8-16); BILIRUBIN,TOTAL 0.6 mg/dL (0.2-1); BLOOD UREA NITROGEN 54 mg/dL (7-18); CALCIUM 8.9 mg/dL (8.5-10.1); CHLORIDE 101 mmol/L (98-107); CO2 39 mmol/L (21-32); CREATININE 0.8 mg/dL (0.55-1.3); GLUCOSE,RANDOM 113 mg/dL (74-106); POTASSIUM 4.4 mmol/L (3.5-5.1); SGOT/AST 27 U/L (15-37); SGPT/ALT 97 U/L (13-61); SODIUM 146 mmol/L (136-145); TOT PROT 5.4 g/dl (6.4-8.2)
[2018-08-01 09:58] LABS: ACANTHOCYTES 0; ANISOCYTOSIS 0; HELMET CELLS 0; HOWELL-JOLLY BODIES 0; MACROCYTOSIS 0; OVALOCYTE 0; PLATELET ESTIMATE DECREASED; ROULEAU 0; SICKELED CELLS 0; TARGET CELLS 0; TEAR DROP CELLS 0; TOXIC GRANULATION 0
[2018-08-01] MEDS ORDERED: cefTRIAXone SODIUM 1 GM VIAL ONE (10:18)
[2018-08-01] MEDS ORDERED: DEXTROSE 5%-WATER - 50 ML IVPB ONE (10:18)
[2018-08-01] MEDS: ENOXAPARIN NA (PORCINE) 40 MG/0.4 ML DISP.SYRIN SQ SCH ×2 (10:28→21:40)
[2018-08-01] MEDS: CEFTRIAXONE 1 GM in DEXTROSE 5%-WATER - 50 ML IVPB SCH (10:29)
[2018-08-01] MEDS: PANTOPRAZOLE 40 MG TABLET (FP) PO SCH (10:29)
[2018-08-01] MEDS: guaiFENesin 600 MG TABLET.ER (FP) PO SCH ×2 (10:29→21:40)
[2018-08-01] MEDS: METOPROLOL TARTRATE 25 MG TABLET (FP) PO SCH ×2 (10:29→21:40)
[2018-08-01] MEDS: FUROSEMIDE 20 MG TABLET (FP) PO SCH (10:29)
[2018-08-01] MEDS: GABAPENTIN 100 MG CAPSULE (FP) PO SCH (10:29)
[2018-08-01] MEDS: LACTOBACILLUS ACIDOPHILUS 1 TABLET PO SCH (10:29)
[2018-08-01] MEDS: RANITIDINE HCL 150 MG TABLET (FP) PO SCH (10:29)
[2018-08-01] MEDS: BUDESONIDE/FORMETEROL FUMARATE 80/4.5 mcg INHALER IH SCH ×2 (10:30→21:40)
[2018-08-01] MEDS: AZITHROMYCIN IVPB 500 MG/250 ML BAG IVPB SCH (10:30)
[2018-08-01] MEDS: TIOTROPIUM BROMIDE 2.5 MCG (SPIRIVA) RESPIMAT INHALER IH SCH (10:30)
[2018-08-01] MEDS ORDERED: ALBUTEROL SO4 0.083% IH SOL 2.5 MG/3 ML VIAL.NEB. NEB PRN (12:27)
--- NOTE | 2018-08-01 12:27 | PN ---
Progress Note (short form) - Note Progress Note: PULMONARY Still with shortness of breath, chest tightness, wheezing. Dyspneic with minimal exertion. On BiPAP at night and PRN during day. Vital Signs Period Temp Pulse Resp BP Sys/[place] Pulse Ox Last 24 Hr 97.2 F-98.7 F 70-138 20-20 117-132/47-70 96-96 Gen: tachypneic at rest Heart: RRR Lung: distant breath sounds Abd: soft, nontender Ext: no edema CBC, BMP 08/01/18 05:30 08/01/18 05:30 Active Medications Acetaminophen (Tylenol -) 650 mg PO Q6H PRN PRN Reason: PAIN Last Admin: 07/28/18 09:43 Dose: 650 mg Albuterol Sulfate (Ventolin 0.083% Nebulizer Soln -) 1 amp NEB RQ4H [facility] Last Admin: 08/01/18 11:14 Dose: 1 amp Alprazolam (Xanax -) 0.25 mg PO Q8H PRN PRN Reason: ANXIETY Last Admin: 07/31/18 00:38 Dose: 0.25 mg Budesonide/Formoterol Fumarate (Symbicort 80/4.5mcg -) 2 puff IH BID [facility] Last Admin: 08/01/18 10:30 Dose: 2 puff Diltiazem HCl (Cardizem -) 30 mg PO TID [facility] Last Admin: 08/01/18 05:31 Dose: 30 mg Enoxaparin Sodium (Lovenox -) 40 mg SQ BID [facility] Last Admin: 08/01/18 10:28 Dose: 40 mg Furosemide (Lasix -) 20 mg PO DAILY [facility] Last Admin: 08/01/18 10:29 Dose: 20 mg Gabapentin (Neurontin -) 100 mg PO DAILY [facility] Last Admin: 08/01/18 10:29 Dose: 100 mg Guaifenesin (Robitussin -) 10 ml PO Q6H PRN PRN Reason: COUGH Last Admin: 07/28/18 09:44 Dose: 10 ml Guaifenesin (Mucinex -) 600 mg PO BID [facility] Last Admin: 08/01/18 10:29 Dose: 600 mg Azithromycin (Zithromax 500mg Ivpb (Pre-Docked)) 500 mg in 250 mls @ 250 mls/ hr IVPB DAILY [facility] Last Admin: 08/01/18 10:30 Dose: 250 mls/hr Ceftriaxone Sodium 1 gm/ (Dextrose) 50 mls @ 100 mls/hr IVPB DAILY [facility] Last Admin: 08/01/18 10:29 Dose: 100 mls/hr Insulin Aspart (Novolog Vial Sliding Scale -) 1 vial SQ ACHS [facility]; Protocol Last Admin: 08/01/18 06:25 Dose: Not Given Lactobacillus Acidophilus (Bacid -) 1 tab PO DAILY [facility] Last Admin: 08/01/18 10:29 Dose: 1 tab Methylprednisolone Sodium Succinate (Solu-Medrol -) 40 mg IVPUSH Q6H-IV [facility] Last Admin: 08/01/18 10:29 Dose: 40 mg Metoprolol Tartrate (Lopressor -) 25 mg PO BID [facility] Last Admin: 08/01/18 10:29 Dose: 25 mg Metoprolol Tartrate (Lopressor Injection -) 5 mg IVPUSH Q4H PRN PRN Reason: HYPERTENSION Last Admin: 07/31/18 17:24 Dose: 5 mg Pantoprazole Sodium (Protonix -) 40 mg PO DAILY [facility] Last Admin: 08/01/18 10:29 Dose: 40 mg Ranitidine HCl (Zantac -) 150 mg PO DAILY [facility] Last Admin: 08/01/18 10:29 Dose: 150 mg Rosuvastatin [place]cium (Crestor -) 20 mg PO HS [facility] Last Admin: 07/31/18 22:59 Dose: 20 mg Tiotropium [place] (Spiriva Respimat) 2 puff IH DAILY [facility] Last Admin: 08/01/18 10:30 Dose: 2 puff A/P Acute COPD Exacerbation s/p RT session NSCLC - Adenocarcinoma LV Diastolic Dysfunction HTN Hypothyroidism Hyperlipidemia - continue medrol at current dose - inhaled bronchodilators - BiPAP as needed to assist in work of breathing - on empiric antibiotics - O2 to keep SpO2 >90% - rehab/PT - DVT prophylaxis
--- NOTE | 2018-08-01 14:14 | EKG ---
Test Reason : Blood Pressure : / mmHG Vent. Rate : 160 BPM Atrial Rate : 079 BPM P-R Int : 000 ms QRS Dur : 084 ms QT Int : 288 ms P-R-T Axes : 000 032 204 degrees QTc Int : 469 ms POOR DATA QUALITY, INTERPRETATION MAY BE ADVERSELY AFFECTED ATRIAL FIBRILLATION WITH RAPID VENTRICULAR RESPONSE MARKED ST ABNORMALITY, POSSIBLE LATERAL SUBENDOCARDIAL INJURY ABNORMAL ECG WHEN COMPARED WITH ECG OF 28-JUL-2018 10:20, ATRIAL FIBRILLATION HAS REPLACED SINUS RHYTHM VENT. RATE HAS INCREASED BY 70 BPM Confirmed by HERNANDEZ EASLEY MD ([id number]) on 08/01/2018 2:14:01 PM Referred By: Confirmed By:HERNANDEZ EASLEY MD
[2018-08-01] MEDS: ALBUTEROL SO4 2.5/IPRATROPIUM 0.5 INH SOL 3 ML VIAL.NEB. NEB SCH ×2 (15:55→20:05)
[2018-08-01] MEDS: ALPRAZolam 0.25 MG TABLET PO PRN (17:46)
[2018-08-01] MEDS: ROSUVASTATIN CA 20 MG TABLET (FP) PO SCH (21:40)
[2018-08-02] MEDS: ALBUTEROL SO4 2.5/IPRATROPIUM 0.5 INH SOL 3 ML VIAL.NEB. NEB SCH ×6 (00:25→20:15)
[2018-08-02] MEDS: methylPREDNISolone NA SUCC 40 MG/1 ML VIAL IVPUSH SCH ×4 (03:59→21:11)
[2018-08-02] MEDS: INSULIN SLIDING SCALE (NOVOLOG) 1 VIAL SQ SCH ×4 (06:25→22:03)
[2018-08-02] MEDS: ALPRAZolam 0.25 MG TABLET PO PRN (06:25)
[2018-08-02] MEDS: dilTIAZem HCL 30 MG TABLET (FP) PO SCH ×3 (06:26→21:41)
[2018-08-02 07:30] LABS: BASO % 0.4 % (0-2.0); HEMATOCRIT 26.2 % (32.4-45.2); HEMOGLOBIN 8.7 GM/dL (10.7-15.3); LYMPH % 0.7 % (8-40); MCH 30.2 pg (25.7-33.7); MCHC 33.3 g/dl (32.0-36.0); MEAN CELL VOLUME 90.7 fl (80-96); MEAN PLT VOLUME 11.6 fl (7.5-11.1); MONO % 1.4 % (3.8-10.2); NEUT % 97.5 % (42.8-82.8); PLATELET COUNT 53 K/MM3 (134-434); RBC 2.89 M/mm3 (3.60-5.2); RDW 18.1 % (11.6-15.6); WHITE BLOOD COUNT 9.2 K/mm3 (4.0-10.0)
[2018-08-02 07:58] LABS: ANION GAP 7 MMOL/L (8-16); BLOOD UREA NITROGEN 55 mg/dL (7-18); CALCIUM 8.6 mg/dL (8.5-10.1); CHLORIDE 102 mmol/L (98-107); CO2 38 mmol/L (21-32); CREATININE 0.7 mg/dL (0.55-1.3); GLUCOSE,RANDOM 146 mg/dL (74-106); SODIUM 147 mmol/L (136-145)
[2018-08-02] MEDS ORDERED: cefTRIAXone SODIUM 1 GM VIAL ONE (09:59)
[2018-08-02] MEDS ORDERED: DEXTROSE 5%-WATER - 50 ML IVPB ONE (10:00)
[2018-08-02] MEDS: METOPROLOL TARTRATE 25 MG TABLET (FP) PO SCH ×2 (10:03→21:41)
[2018-08-02] MEDS: FUROSEMIDE 20 MG TABLET (FP) PO SCH (10:03)
[2018-08-02] MEDS: RANITIDINE HCL 150 MG TABLET (FP) PO SCH (10:03)
[2018-08-02] MEDS: GABAPENTIN 100 MG CAPSULE (FP) PO SCH (10:03)
[2018-08-02] MEDS: guaiFENesin 600 MG TABLET.ER (FP) PO SCH ×2 (10:03→21:41)
[2018-08-02] MEDS: LACTOBACILLUS ACIDOPHILUS 1 TABLET PO SCH (10:03)
[2018-08-02] MEDS: PANTOPRAZOLE 40 MG TABLET (FP) PO SCH (10:03)
[2018-08-02] MEDS: ENOXAPARIN NA (PORCINE) 40 MG/0.4 ML DISP.SYRIN SQ SCH ×2 (10:04→21:41)
[2018-08-02] MEDS: CEFTRIAXONE 1 GM in DEXTROSE 5%-WATER - 50 ML IVPB SCH (10:04)
[2018-08-02] MEDS: AZITHROMYCIN IVPB 500 MG/250 ML BAG IVPB SCH (10:04)
[2018-08-02 10:08] LABS: ANISOCYTOSIS 2+; MACROCYTOSIS 2+; PLATELET ESTIMATE DECREASED
[2018-08-02] MEDS: BUDESONIDE/FORMETEROL FUMARATE 80/4.5 mcg INHALER IH SCH ×2 (10:09→21:46)
--- NOTE | 2018-08-02 11:02 | PN ---
Progress Note, Physician History of Present Illness: PULMONARY AWAKE,ANXIOUS ON BIPAP DYSPNEIC - Current Medication List Current Medications: Active Medications Acetaminophen (Tylenol -) 650 mg PO Q6H PRN PRN Reason: PAIN Last Admin: 07/28/18 09:43 Dose: 650 mg Albuterol Sulfate (Ventolin 0.083% Nebulizer Soln -) 1 amp NEB Q4H PRN PRN Reason: SHORT OF BREATH/WHEEZING Albuterol/Ipratropium (Duoneb -) 1 amp NEB RQ4H [facility] Last Admin: 08/02/18 07:40 Dose: 1 amp Alprazolam (Xanax -) 0.25 mg PO Q8H PRN PRN Reason: ANXIETY Last Admin: 08/02/18 06:25 Dose: 0.25 mg Budesonide/Formoterol Fumarate (Symbicort 80/4.5mcg -) 2 puff IH BID [facility] Last Admin: 08/02/18 10:09 Dose: 2 puff Diltiazem HCl (Cardizem -) 30 mg PO TID [facility] Last Admin: 08/02/18 06:26 Dose: 30 mg Enoxaparin Sodium (Lovenox -) 40 mg SQ BID [facility] Last Admin: 08/02/18 10:04 Dose: 40 mg Furosemide (Lasix -) 20 mg PO DAILY [facility] Last Admin: 08/02/18 10:03 Dose: 20 mg Gabapentin (Neurontin -) 100 mg PO DAILY [facility] Last Admin: 08/02/18 10:03 Dose: 100 mg Guaifenesin (Robitussin -) 10 ml PO Q6H PRN PRN Reason: COUGH Last Admin: 07/28/18 09:44 Dose: 10 ml Guaifenesin (Mucinex -) 600 mg PO BID [facility] Last Admin: 08/02/18 10:03 Dose: 600 mg Azithromycin (Zithromax 500mg Ivpb (Pre-Docked)) 500 mg in 250 mls @ 250 mls/ hr IVPB DAILY [facility] Last Admin: 08/02/18 10:04 Dose: 250 mls/hr Ceftriaxone Sodium 1 gm/ (Dextrose) 50 mls @ 100 mls/hr IVPB DAILY [facility] Last Admin: 08/02/18 10:04 Dose: 100 mls/hr Insulin Aspart (Novolog Vial Sliding Scale -) 1 vial SQ ACHS [facility]; Protocol Last Admin: 08/02/18 06:25 Dose: Not Given Lactobacillus Acidophilus (Bacid -) 1 tab PO DAILY [facility] Last Admin: 08/02/18 10:03 Dose: 1 tab Methylprednisolone Sodium Succinate (Solu-Medrol -) 40 mg IVPUSH Q6H-IV [facility] Last Admin: 08/02/18 10:38 Dose: 40 mg Metoprolol Tartrate (Lopressor -) 25 mg PO BID [facility] Last Admin: 08/02/18 10:03 Dose: 25 mg Metoprolol Tartrate (Lopressor Injection -) 5 mg IVPUSH Q4H PRN PRN Reason: HYPERTENSION Last Admin: 07/31/18 17:24 Dose: 5 mg Pantoprazole Sodium (Protonix -) 40 mg PO DAILY [facility] Last Admin: 08/02/18 10:03 Dose: 40 mg Ranitidine HCl (Zantac -) 150 mg PO DAILY [facility] Last Admin: 08/02/18 10:03 Dose: 150 mg Rosuvastatin Calcium (Crestor -) 20 mg PO HS [facility] Last Admin: 08/01/18 21:40 Dose: 20 mg - Objective Vital Signs: Vital Signs Temperature 97.5 F L 08/02/18 02:00 Pulse Rate 91 H 08/02/18 06:34 Respiratory Rate 24 H 08/02/18 06:34 Blood Pressure 160/70 08/02/18 06:34 O2 Sat by Pulse Oximetry (%) 93 L 08/02/18 07:51 Constitutional: Yes: Anxious, Mild Distress, Thin Eyes: Yes: WNL HENT: Yes: WNL Neck: Yes: WNL Cardiovascular: Yes: Pulse Irregular, S1, S2 Respiratory: Yes: Diminished Gastrointestinal: Yes: Normal Bowel Sounds, Soft Extremities: Yes: WNL Edema: No Labs: CBC, BMP 08/02/18 06:40 08/02/18 06:40 INR, PTT INR 1.01 (0.83-1.09) 07/08/18 16:43 Assessment/Plan Problem List - Problems (1) Adenocarcinoma, lung Code(s): C34.90 - MALIGNANT NEOPLASM OF UNSP PART OF UNSP BRONCHUS OR LUNG (2) ASHD (arteriosclerotic heart disease) Code(s): I25.10 - ATHSCL HEART DISEASE OF [place] CORONARY ARTERY W/O ANG PCTRS (3) Anxiety and depression Code(s): F41.9 - ANXIETY DISORDER, UNSPECIFIED; F32.9 - MAJOR DEPRESSIVE DISORDER, SINGLE EPISODE, UNSPECIFIED (4) COPD (chronic obstructive pulmonary disease) Code(s): J44.9 - CHRONIC OBSTRUCTIVE PULMONARY DISEASE, UNSPECIFIED Qualifiers: COPD type: unspecified COPD Qualified Code(s): J44.9 - Chronic obstructive pulmonary disease, unspecified (5) COPD exacerbation Code(s): J44.1 - CHRONIC OBSTRUCTIVE PULMONARY DISEASE W (ACUTE) EXACERBATION (6) Cough Code(s): R05 - COUGH (7) Diastolic CHF Code(s): I50.30 - UNSPECIFIED DIASTOLIC (CONGESTIVE) HEART FAILURE (8) HTN (hypertension) Code(s): I10 - ESSENTIAL (PRIMARY) HYPERTENSION (9) Hyperlipidemia Code(s): E78.5 - HYPERLIPIDEMIA, UNSPECIFIED (10) Hypothyroid Code(s): E03.9 - HYPOTHYROIDISM, UNSPECIFIED (11) Shortness of breath Code(s): R06.02 - SHORTNESS OF BREATH A/P Acute COPD Exacerbation s/p RT session NSCLC - Adenocarcinoma mets to rib/liver LV Diastolic Dysfunction AFIB HTN Hypothyroidism Hyperlipidemia - medrol same dose - inhaled bronchodilators - on empiric antibiotics - rehab/PT - DVT prophylaxis - continue bipap ,O2 - AC DR CARDOSO
--- NOTE | 2018-08-02 11:40 | PN ---
Progress Note, Physician Chief Complaint: awake alert feels tired, tachypneic, had cough and wheezing all night did not rest well; has scattered echymoses on arms; is on sq lovenox bid for AFib; had 1 episode of hemoptysis last night; PLT 53K will d/w cardio pulm and heme onc further management on Bipap now; grand son Igor at bedside; d/w pt and Igor and daughter Shiloh about pt's condition and prognosis; has R lung CA invasive, has L Pneumonia, is on high doses iv steroids and IV antibiotics, Nebs and O2 and getting worse; might need intubation and mechanical ventilation, Shanna is anxious and can not think about it now but it is not ready to sign DNR DNI; she and Igor also asked me to dw her niece Ildefonso [phone] who loves in [place] and is considering coming here over the weekend but she is waiting to hear from me - Current Medication List Current Medications: Active Medications Acetaminophen (Tylenol -) 650 mg PO Q6H PRN PRN Reason: PAIN Last Admin: 07/28/18 09:43 Dose: 650 mg Albuterol Sulfate (Ventolin 0.083% Nebulizer Soln -) 1 amp NEB Q4H PRN PRN Reason: SHORT OF BREATH/WHEEZING Albuterol/Ipratropium (Duoneb -) 1 amp NEB RQ4H [facility] Last Admin: 08/02/18 07:40 Dose: 1 amp Alprazolam (Xanax -) 0.25 mg PO Q8H PRN PRN Reason: ANXIETY Last Admin: 08/02/18 06:25 Dose: 0.25 mg Budesonide/Formoterol Fumarate (Symbicort 80/4.5mcg -) 2 puff IH BID [facility] Last Admin: 08/02/18 10:09 Dose: 2 puff Diltiazem HCl (Cardizem -) 30 mg PO TID [facility] Last Admin: 08/02/18 06:26 Dose: 30 mg Enoxaparin Sodium (Lovenox -) 40 mg SQ BID [facility] Last Admin: 08/02/18 10:04 Dose: 40 mg Furosemide (Lasix -) 20 mg PO DAILY [facility] Last Admin: 08/02/18 10:03 Dose: 20 mg Gabapentin (Neurontin -) 100 mg PO DAILY [facility] Last Admin: 08/02/18 10:03 Dose: 100 mg Guaifenesin (Robitussin -) 10 ml PO Q6H PRN PRN Reason: COUGH Last Admin: 07/28/18 09:44 Dose: 10 ml Guaifenesin (Mucinex -) 600 mg PO BID [facility] Last Admin: 08/02/18 10:03 Dose: 600 mg Azithromycin (Zithromax 500mg Ivpb (Pre-Docked)) 500 mg in 250 mls @ 250 mls/ hr IVPB DAILY [facility] Last Admin: 08/02/18 10:04 Dose: 250 mls/hr Ceftriaxone Sodium 1 gm/ (Dextrose) 50 mls @ 100 mls/hr IVPB DAILY [facility] Last Admin: 08/02/18 10:04 Dose: 100 mls/hr Insulin Aspart (Novolog Vial Sliding Scale -) 1 vial SQ ACHS [facility]; Protocol Last Admin: 08/02/18 06:25 Dose: Not Given Lactobacillus Acidophilus (Bacid -) 1 tab PO DAILY [facility] Last Admin: 08/02/18 10:03 Dose: 1 tab Methylprednisolone Sodium Succinate (Solu-Medrol -) 40 mg IVPUSH Q6H-IV [facility] Last Admin: 08/02/18 10:38 Dose: 40 mg Metoprolol Tartrate (Lopressor -) 25 mg PO BID [facility] Last Admin: 08/02/18 10:03 Dose: 25 mg Metoprolol Tartrate (Lopressor Injection -) 5 mg IVPUSH Q4H PRN PRN Reason: HYPERTENSION Last Admin: 07/31/18 17:24 Dose: 5 mg Pantoprazole Sodium (Protonix -) 40 mg PO DAILY [facility] Last Admin: 08/02/18 10:03 Dose: 40 mg Ranitidine HCl (Zantac -) 150 mg PO DAILY [facility] Last Admin: 08/02/18 10:03 Dose: 150 mg Rosuvastatin Calcium (Crestor -) 20 mg PO HS [facility] Last Admin: 08/01/18 21:40 Dose: 20 mg - Objective Vital Signs: Vital Signs Temperature 97.5 F L 08/02/18 02:00 Pulse Rate 91 H 08/02/18 06:34 Respiratory Rate 24 H 08/02/18 06:34 Blood Pressure 160/70 08/02/18 06:34 O2 Sat by Pulse Oximetry (%) 93 L 08/02/18 07:51 Constitutional: Yes: Anxious, Mild Distress Eyes: Yes: Conjunctiva Clear HENT: Yes: Atraumatic Neck: Yes: Supple Cardiovascular: Yes: Tachycardia Respiratory: Yes: Rales, Wheezes Gastrointestinal: Yes: Soft. No: Tenderness Genitourinary: No: Hematuria Musculoskeletal: No: Joint Stiffness, Joint Swelling Extremities: No: Cold, Cool Edema: No Integumentary: Yes: Bruising Neurological: Yes: WNL, Alert, Oriented ...Motor Strength: WNL Psychiatric: Yes: WNL, Alert, Oriented. No: Agitated, Suicidal Ideation Labs: CBC, BMP 08/02/18 06:40 08/02/18 06:40 INR, PTT INR 1.01 (0.83-1.09) 07/08/18 16:43 - ....Imaging Other: Report Reviewed Assessment/Plan The patient is an 82 year old female with a PMH of COPD (on 2L), Stage 3a NSCC ( currently on radiation), CAD s/p IN (s/p cardiac stent x3), HTN, HLD \admitted with acute onset of shortness of breath, acute on chronic COPD exac and bronchitis, new L sided PNA and metastatic ds lung, liver bones; borderline + troponins h/o ASHD stent, high BNP h/o CHF low EF, s/p one episode of hemoptysis , new onset rapid AFib, low Platelets iv steroids, nebs, O2 and iv antibiotics BGM, sq insulin prn PULM, Cardiology f/u HR control; started on sq lovenox bid ONC f/u falls PFX prognosis guarded might need ventilatory support if respiratory status worsens d/w pt and staff d/w grand son Igor and nilson Devine t time 45 min
--- NOTE | 2018-08-02 16:48 | PN ---
Progress Note (short form) - Note Progress Note: Patient seen and examined [place] on BIPAP Lethargic and poorly responsive Last Vital Signs Temp Pulse Resp BP Pulse Ox 97.8 F 81 24 H 131/53 L 95 08/02/18 14:00 08/02/18 14:00 08/02/18 14:00 08/02/18 14:00 08/02/18 11:52 HEENT: KEIRY, EOM Intact Cor: RSR, No murmurs, No gallops Lungs:rhonchi, diminished breath sounds Abd: Soft, Normal bowel sounds, No organomegaly Ext:No significant edema Skin: numereous ecchymoses CBC, BMP 08/02/18 06:40 08/02/18 06:40 Current Medications Generic Name Dose Route Start Last Admin Trade Name Freq PRN Reason Stop Dose Admin Acetaminophen 650 mg 07/08/18 19:43 07/28/18 09:43 Tylenol - PO 650 mg Q6H PRN Administration PAIN Albuterol Sulfate 1 amp 08/01/18 12:27 Ventolin 0.083% Nebulizer Soln - NEB Q4H PRN SHORT OF BREATH/WHEEZING Albuterol/Ipratropium 1 amp 08/01/18 16:00 08/02/18 11:25 Duoneb - NEB 1 amp RQ4H JOHN Administration Alprazolam 0.25 mg 07/26/18 20:13 08/02/18 06:25 Xanax - PO 0.25 mg Q8H PRN Administration ANXIETY Budesonide/Formoterol Fumarate 2 puff 07/10/18 22:00 08/02/18 10:09 Symbicort 80/4.5mcg - IH 2 puff BID JOHN Administration Diltiazem HCl 30 mg 07/31/18 00:45 08/02/18 15:13 Cardizem - PO 30 mg TID JOHN Administration Enoxaparin Sodium 40 mg 07/30/18 23:00 08/02/18 10:04 Lovenox - SQ 40 mg BID JOHN Administration Furosemide 40 mg 08/03/18 10:00 Lasix Injection - IVPUSH DAILY JOHN Gabapentin 100 mg 07/15/18 20:00 08/02/18 10:03 Neurontin - PO 100 mg DAILY JOHN Administration Guaifenesin 10 ml 07/08/18 19:43 07/28/18 09:44 Robitussin - PO 10 ml Q6H PRN Administration COUGH Guaifenesin 600 mg 07/28/18 10:00 08/02/18 10:03 Mucinex - PO 600 mg BID JOHN Administration Azithromycin 500 mg in 250 mls @ 250 mls/hr 07/29/18 10:00 08/02/18 10:04 Zithromax 500mg Ivpb (Pre-Docked) IVPB 250 mls/hr DAILY JOHN Administration Ceftriaxone Sodium 1 gm/ 50 mls @ 100 mls/hr 07/29/18 10:00 08/02/18 10:04 Dextrose IVPB 100 mls/hr DAILY JOHN Administration Insulin Aspart 1 vial 07/30/18 16:30 08/02/18 12:00 Novolog Vial Sliding Scale - SQ 12 units ACHS JOHN Administration Protocol Lactobacillus Acidophilus 1 tab 07/29/18 10:00 08/02/18 10:03 Bacid - PO 1 tab DAILY JOHN Administration Methylprednisolone Sodium Succinate 40 mg 07/28/18 09:00 08/02/18 15:55 Solu-Medrol - IVPUSH 40 mg Q6H-IV JOHN Administration Metoprolol Tartrate 25 mg 07/08/18 22:00 08/02/18 10:03 Lopressor - PO 25 mg BID JOHN Administration Metoprolol Tartrate 5 mg 07/30/18 22:52 07/31/18 17:24 Lopressor Injection - IVPUSH 5 mg Q4H PRN Administration HYPERTENSION Pantoprazole Sodium 40 mg 08/03/18 10:00 Protonix Iv IVPUSH DAILY JOHN Ranitidine HCl 150 mg 07/09/18 10:00 08/02/18 10:03 Zantac - PO 150 mg DAILY JOHN Administration Rosuvastatin Calcium 20 mg 07/08/18 22:00 08/01/18 21:40 Crestor - PO 20 mg HS JOHN Administration Impression: Metastatic adenoca COPD Pneumonia Anemia Thrombocytopenia Review of records reveals platelet counts dating back to 2013 which have been low. Recent additional fall over last few days, /?pneumonia, ?meds, ? abnormalities of liver Would consider holding lovenox if platelets < 50K . Picture does not appear to be consistent with HIT. Will do screen however.
[2018-08-02] MEDS: ROSUVASTATIN CA 20 MG TABLET (FP) PO SCH (21:41)
[2018-08-03] MEDS: methylPREDNISolone NA SUCC 40 MG/1 ML VIAL IVPUSH SCH ×4 (03:25→21:47)
[2018-08-03] MEDS: ALBUTEROL SO4 2.5/IPRATROPIUM 0.5 INH SOL 3 ML VIAL.NEB. NEB SCH ×6 (03:51→20:45)
[2018-08-03] MEDS: INSULIN SLIDING SCALE (NOVOLOG) 1 VIAL SQ SCH ×4 (06:00→21:49)
[2018-08-03] MEDS: dilTIAZem HCL 30 MG TABLET (FP) PO SCH ×3 (06:48→21:46)
--- NOTE | 2018-08-03 07:59 | PN ---
Progress Note, Physician Chief Complaint: Pt A&Ox3; frustrated that she has again become dyspneic at rest; no chest pain. History of Present Illness: The patient is an 82 year old white female with a PMH of COPD (on 2L), Stage 3a NSCC lung cancer (currently on radiation), CAD s/p DC (s/p cardiac stent x3), HTN, HLD was BIBEMS for acute onset of shortness of breath. Patient was completing her first radiation treatment today when she suddenly became short of breath. Denies chest pain, lightheadedness, nausea, diaphoresis. Grandson @ bedside assists in history, notes patient has been taking her Albuterol inhaler multiple times daily. Recent medication addition of Symbicort to her daily regimen. History limited as patient tachycardic, tachypneic @ presentation. NKDA Surgical: Cardiac Stent x3, lung biopsy PMD: Dr. Mary Beth Stein Cardiology: Dr. Bah Pulmonology: Dr. Kern/Dr. Velazquez - Current Medication List Current Medications: Active Medications Acetaminophen (Tylenol -) 650 mg PO Q6H PRN PRN Reason: PAIN Last Admin: 07/28/18 09:43 Dose: 650 mg Albuterol Sulfate (Ventolin 0.083% Nebulizer Soln -) 1 amp NEB Q4H PRN PRN Reason: SHORT OF BREATH/WHEEZING Albuterol/Ipratropium (Duoneb -) 1 amp NEB RQ4H JOHN Last Admin: 08/03/18 03:51 Dose: 1 amp Alprazolam (Xanax -) 0.25 mg PO Q8H PRN PRN Reason: ANXIETY Last Admin: 08/02/18 06:25 Dose: 0.25 mg Budesonide/Formoterol Fumarate (Symbicort 80/4.5mcg -) 2 puff IH BID [facility] Last Admin: 08/02/18 21:46 Dose: 2 puff Diltiazem HCl (Cardizem -) 30 mg PO TID [facility] Last Admin: 08/03/18 06:48 Dose: 30 mg Enoxaparin Sodium (Lovenox -) 40 mg SQ BID [facility] Last Admin: 08/02/18 21:41 Dose: 40 mg Furosemide (Lasix Injection -) 40 mg IVPUSH DAILY [facility] Gabapentin (Neurontin -) 100 mg PO DAILY [facility] Last Admin: 08/02/18 10:03 Dose: 100 mg Guaifenesin (Robitussin -) 10 ml PO Q6H PRN PRN Reason: COUGH Last Admin: 07/28/18 09:44 Dose: 10 ml Guaifenesin (Mucinex -) 600 mg PO BID [facility] Last Admin: 08/02/18 21:41 Dose: 600 mg Azithromycin (Zithromax 500mg Ivpb (Pre-Docked)) 500 mg in 250 mls @ 250 mls/ hr IVPB DAILY [facility] Last Admin: 08/02/18 10:04 Dose: 250 mls/hr Ceftriaxone Sodium 1 gm/ (Dextrose) 50 mls @ 100 mls/hr IVPB DAILY [facility] Last Admin: 08/02/18 10:04 Dose: 100 mls/hr Insulin Aspart (Novolog Vial Sliding Scale -) 1 vial SQ ACHS [facility]; Protocol Last Admin: 08/03/18 06:00 Dose: Not Given Lactobacillus Acidophilus (Bacid -) 1 tab PO DAILY [facility] Last Admin: 08/02/18 10:03 Dose: 1 tab Methylprednisolone Sodium Succinate (Solu-Medrol -) 40 mg IVPUSH Q6H-IV [facility] Last Admin: 08/03/18 03:25 Dose: 40 mg Metoprolol Tartrate (Lopressor -) 25 mg PO BID [facility] Last Admin: 08/02/18 21:41 Dose: 25 mg Metoprolol Tartrate (Lopressor Injection -) 5 mg IVPUSH Q4H PRN PRN Reason: HYPERTENSION Last Admin: 07/31/18 17:24 Dose: 5 mg Pantoprazole Sodium (Protonix Iv) 40 mg IVPUSH DAILY [facility] Ranitidine HCl (Zantac -) 150 mg PO DAILY [facility] Last Admin: 08/02/18 10:03 Dose: 150 mg Rosuvastatin Calcium (Crestor -) 20 mg PO HS [facility] Last Admin: 08/02/18 21:41 Dose: 20 mg - Objective Vital Signs: Vital Signs Temperature 98.2 F 08/03/18 06:00 Pulse Rate 86 08/03/18 06:00 Respiratory Rate 22 H 08/03/18 06:00 Blood Pressure 140/72 08/03/18 06:00 O2 Sat by Pulse Oximetry (%) 96 08/02/18 21:00 Constitutional: Yes: Anxious, Cachectic Eyes: Yes: WNL HENT: Yes: WNL Neck: Yes: WNL Cardiovascular: Yes: S1, S2, S4 Respiratory: Yes: Diminished, On BiPap Gastrointestinal: Yes: Soft ...Rectal Exam: Yes: Deferred Genitourinary: No: Anuria Breast(s): Yes: WNL Musculoskeletal: Yes: Muscle Weakness Extremities: Yes: Cool Edema: No Peripheral Pulses WNL: No Peripheral Pulses: Left Doralis Pedis: 1+, Right Dorsalis Pedis: 1+ Integumentary: Yes: WNL Neurological: Yes: Alert, Oriented, Weakness Psychiatric: Yes: Alert, Oriented, Other (anxiety) Labs: INR, PTT INR 1.01 (0.83-1.09) 07/08/18 16:43 Abnormal Lab Results 08/02/18 06:40 RBC 2.89 L Hgb 8.7 L Hct 26.2 L RDW 18.1 H Plt Count 53 L MPV 11.6 H Absolute Neuts (auto) 9.0 H Neutrophils % 97.5 H Neutrophils % (Manual) 98.1 H Lymphocytes % 0.7 L Lymphocytes % (Manual) 1.0 L D Monocytes % 1.4 L Monocytes % (Manual) 0 L - ....Imaging Other: Image Reviewed (telemetry: AF; periods of RVR) Problem List - Problems (1) Elevated troponin I level Assessment/Plan: 0.02-->0.21-->0.19; normal CK EKG: PAF, periods of RVR. Pt likely has demand ischemia from exacerbation of COPD, diastolic CHF, CA, tachycardia. Given pt's advanced lung CA, would recommend conservative management of cardiac condition (she is on metoprolol, diltiazem, statin, ASA, Lovenox) Code(s): R74.8 - ABNORMAL LEVELS OF OTHER SERUM ENZYMES (2) Adenocarcinoma, lung Assessment/Plan: bone and liver metastases. F/u with hem/onc. Code(s): C34.90 - MALIGNANT NEOPLASM OF UNSP PART OF UNSP BRONCHUS OR LUNG (3) Shortness of breath Assessment/Plan: Lung CA with mets; COPD; diastolic CHF. 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 Pt is reluctant to use Bipap, saying the mask bothers her. Code(s): R06.02 - SHORTNESS OF BREATH (4) HTN (hypertension) Assessment/Plan: On metoprolol, diltiazem, and furosemide. Code(s): I10 - ESSENTIAL (PRIMARY) HYPERTENSION (5) Hyperlipidemia Assessment/Plan: on statin Code(s): E78.5 - HYPERLIPIDEMIA, UNSPECIFIED (6) Acute on chronic diastolic CHF (congestive heart failure) Assessment/Plan: On metoprolol, diltiazem, and Furosemide f/u BUn/Cr, electrolytes, daily weight, Is and Os. Code(s): I50.33 - ACUTE ON CHRONIC DIASTOLIC (CONGESTIVE) HEART FAILURE (7) Thrombocytopenia Assessment/Plan: Developed during this admission. Off ASA; platelets remain low (now in the lower 50s). Code(s): D69.6 - THROMBOCYTOPENIA, UNSPECIFIED (8) Leukocytosis Assessment/Plan: WBCs reducing; now 10.3; afebrile. F/u with hem/onc. Code(s): D72.829 - ELEVATED WHITE BLOOD CELL COUNT, UNSPECIFIED
[2018-08-03 08:01] LABS: BASO % 0.2 % (0-2.0); HEMATOCRIT 24.7 % (32.4-45.2); HEMOGLOBIN 8.1 GM/dL (10.7-15.3); LYMPH % 0.7 % (8-40); MCH 29.7 pg (25.7-33.7); MCHC 32.8 g/dl (32.0-36.0); MEAN CELL VOLUME 90.5 fl (80-96); MEAN PLT VOLUME 11.4 fl (7.5-11.1); MONO % 2.1 % (3.8-10.2); PLATELET COUNT 57 K/MM3 (134-434); RBC 2.73 M/mm3 (3.60-5.2); RDW 17.8 % (11.6-15.6); WHITE BLOOD COUNT 11.9 K/mm3 (4.0-10.0)
--- NOTE | 2018-08-03 08:10 | PN ---
Progress Note, Physician Chief Complaint: Pt alert; highly anxious; very uncomfortable; feels she cannot breathe, even with Bipap. History of Present Illness: The patient is an 82 year old white female with a PMH of COPD (on 2L), Stage 3a NSCC lung cancer (currently on radiation), CAD s/p CT (s/p cardiac stent x3), HTN, HLD was BIBEMS for acute onset of shortness of breath. Patient was completing her first radiation treatment today when she suddenly became short of breath. Denies chest pain, lightheadedness, nausea, diaphoresis. Grandson @ bedside assists in history, notes patient has been taking her Albuterol inhaler multiple times daily. Recent medication addition of Symbicort to her daily regimen. History limited as patient tachycardic, tachypneic @ presentation. NKDA Surgical: Cardiac Stent x3, lung biopsy PMD: Dr. Mary Beth Stein Cardiology: Dr. Bah Pulmonology: Dr. Kern/Dr. Velazquez - Current Medication List Current Medications: Active Medications Acetaminophen (Tylenol -) 650 mg PO Q6H PRN PRN Reason: PAIN Last Admin: 07/28/18 09:43 Dose: 650 mg Albuterol Sulfate (Ventolin 0.083% Nebulizer Soln -) 1 amp NEB Q4H PRN PRN Reason: SHORT OF BREATH/WHEEZING Albuterol/Ipratropium (Duoneb -) 1 amp NEB RQ4H [facility] Last Admin: 08/03/18 03:51 Dose: 1 amp Alprazolam (Xanax -) 0.25 mg PO Q8H PRN PRN Reason: ANXIETY Last Admin: 08/02/18 06:25 Dose: 0.25 mg Budesonide/Formoterol Fumarate (Symbicort 80/4.5mcg -) 2 puff IH BID [facility] Last Admin: 08/02/18 21:46 Dose: 2 puff Diltiazem HCl (Cardizem -) 30 mg PO TID [facility] Last Admin: 08/03/18 06:48 Dose: 30 mg Enoxaparin Sodium (Lovenox -) 40 mg SQ BID [facility] Last Admin: 08/02/18 21:41 Dose: 40 mg Furosemide (Lasix Injection -) 40 mg IVPUSH DAILY [facility] Gabapentin (Neurontin -) 100 mg PO DAILY [facility] Last Admin: 08/02/18 10:03 Dose: 100 mg Guaifenesin (Robitussin -) 10 ml PO Q6H PRN PRN Reason: COUGH Last Admin: 07/28/18 09:44 Dose: 10 ml Guaifenesin (Mucinex -) 600 mg PO BID [facility] Last Admin: 08/02/18 21:41 Dose: 600 mg Azithromycin (Zithromax 500mg Ivpb (Pre-Docked)) 500 mg in 250 mls @ 250 mls/ hr IVPB DAILY [facility] Last Admin: 08/02/18 10:04 Dose: 250 mls/hr Ceftriaxone Sodium 1 gm/ (Dextrose) 50 mls @ 100 mls/hr IVPB DAILY [facility] Last Admin: 08/02/18 10:04 Dose: 100 mls/hr Insulin Aspart (Novolog Vial Sliding Scale -) 1 vial SQ ACHS [facility]; Protocol Last Admin: 08/03/18 06:00 Dose: Not Given Lactobacillus Acidophilus (Bacid -) 1 tab PO DAILY [facility] Last Admin: 08/02/18 10:03 Dose: 1 tab Methylprednisolone Sodium Succinate (Solu-Medrol -) 40 mg IVPUSH Q6H-IV [facility] Last Admin: 08/03/18 03:25 Dose: 40 mg Metoprolol Tartrate (Lopressor -) 25 mg PO BID [facility] Last Admin: 08/02/18 21:41 Dose: 25 mg Metoprolol Tartrate (Lopressor Injection -) 5 mg IVPUSH Q4H PRN PRN Reason: HYPERTENSION Last Admin: 07/31/18 17:24 Dose: 5 mg Pantoprazole Sodium (Protonix Iv) 40 mg IVPUSH DAILY [facility] Ranitidine HCl (Zantac -) 150 mg PO DAILY [facility] Last Admin: 08/02/18 10:03 Dose: 150 mg Rosuvastatin Calcium (Crestor -) 20 mg PO HS [facility] Last Admin: 08/02/18 21:41 Dose: 20 mg - Objective Vital Signs: Vital Signs Temperature 98.2 F 08/03/18 06:00 Pulse Rate 86 08/03/18 06:00 Respiratory Rate 22 H 08/03/18 06:00 Blood Pressure 140/72 08/03/18 06:00 O2 Sat by Pulse Oximetry (%) 96 08/02/18 21:00 Constitutional: Yes: Cachectic Eyes: Yes: WNL HENT: Yes: WNL Neck: Yes: WNL Cardiovascular: Yes: Tachycardia, Pulse Irregular, S1 (varies in intensity), S2 Respiratory: Yes: Diminished, On BiPap, SOB, Tachypnea Gastrointestinal: Yes: Soft ...Rectal Exam: Yes: Deferred Genitourinary: No: Anuria Breast(s): Yes: WNL Musculoskeletal: Yes: Muscle Weakness Extremities: Yes: Cool Edema: No Peripheral Pulses WNL: No Peripheral Pulses: Left Doralis Pedis: 1+, Right Dorsalis Pedis: 1+ Integumentary: Yes: Bruising Neurological: Yes: Alert, Oriented, Weakness Psychiatric: Yes: Alert, Oriented, Agitated, Other Labs: INR, PTT INR 1.01 (0.83-1.09) 07/08/18 16:43 - ....Imaging Other: Image Reviewed (telemetry: AF) Problem List - Problems (1) Elevated troponin I level Assessment/Plan: 0.02-->0.21-->0.19; normal CK EKG: PAF, periods of RVR. Pt likely has demand ischemia from exacerbation of COPD, diastolic CHF, CA, tachycardia. Given pt's advanced lung CA, would recommend conservative management of cardiac condition (she is on metoprolol, diltiazem, statin, ASA, Lovenox) Code(s): R74.8 - ABNORMAL LEVELS OF OTHER SERUM ENZYMES (2) Adenocarcinoma, lung Assessment/Plan: Advanced CA, with bone and liver metastases. F/u with hem/onc. Code(s): C34.90 - MALIGNANT NEOPLASM OF UNSP PART OF UNSP BRONCHUS OR LUNG (3) Shortness of breath Assessment/Plan: Deteriorating pulmonary status. Pt continues to say she does not want to be intubated. She (and her grandson, present today) are aware she must make a decision as to what measures are to be taken should she become refractory to conventional treatment. Code(s): R06.02 - SHORTNESS OF BREATH (4) HTN (hypertension) Assessment/Plan: On metoprolol, diltiazem, and furosemide. Code(s): I10 - ESSENTIAL (PRIMARY) HYPERTENSION (5) Hyperlipidemia Assessment/Plan: on statin Code(s): E78.5 - HYPERLIPIDEMIA, UNSPECIFIED (6) Acute on chronic diastolic CHF (congestive heart failure) Assessment/Plan: On metoprolol, diltiazem, and Furosemide f/u BUn/Cr, electrolytes, daily weight, Is and Os. Code(s): I50.33 - ACUTE ON CHRONIC DIASTOLIC (CONGESTIVE) HEART FAILURE (7) Thrombocytopenia Assessment/Plan: Developed during this admission. Off ASA; platelets remain low (now in the lower 50s). Code(s): D69.6 - THROMBOCYTOPENIA, UNSPECIFIED (8) Leukocytosis Assessment/Plan: WBCs reducing; now 10.3; afebrile. F/u with hem/onc. Code(s): D72.829 - ELEVATED WHITE BLOOD CELL COUNT, UNSPECIFIED (9) Atrial fibrillation Assessment/Plan: On metoprolol and diltiazem for HR control. On Lovenox for anticoagulation; platelets are being folllowed closely; as noted , Lovenox may have to be stopped if they drop below 50. Code(s): I48.91 - UNSPECIFIED ATRIAL FIBRILLATION
[2018-08-03] MEDS ORDERED: guaiFENesin 200 MG/10 ML 10 ML UNIT-DOSE CUPS PO PRN (08:32)
[2018-08-03 08:57] LABS: ANION GAP 4 MMOL/L (8-16); BLOOD UREA NITROGEN 60 mg/dL (7-18); CALCIUM 8.8 mg/dL (8.5-10.1); CHLORIDE 104 mmol/L (98-107); CO2 40 mmol/L (21-32); CREATININE 0.7 mg/dL (0.55-1.3); GLUCOSE,RANDOM 124 mg/dL (74-106); POTASSIUM 3.6 mmol/L (3.5-5.1); SODIUM 149 mmol/L (136-145)
--- NOTE | 2018-08-03 09:05 | PN ---
Progress Note, Physician Chief Complaint: chest tightness; had one episode of hemoptysis; pt is really trying to get up sputum but she said she can not; d/w pt should not try too hard might hurt her throat - no CP; on Bipap CBC noted; Na 149 will ask renal for hyperNa; has h/o CHF low EF on lasix; add po free water and cut down lasix if PLT and H&H continue to drop will stop sq lovenox prognosis guarded; if worsening respiratory failure will need intubation and mechanical ventilation d/w pt and pt's daughter Shiloh and pt's grand son Igor - Current Medication List Current Medications: Active Medications Acetaminophen (Tylenol -) 650 mg PO Q6H PRN PRN Reason: PAIN Albuterol Sulfate (Ventolin 0.083% Nebulizer Soln -) 1 amp NEB Q4H PRN PRN Reason: SHORT OF BREATH/WHEEZING Albuterol/Ipratropium (Duoneb -) 1 amp NEB RQ4H [facility] Last Admin: 08/03/18 03:51 Dose: 1 amp Alprazolam (Xanax -) 0.25 mg PO Q8H PRN PRN Reason: ANXIETY Budesonide/Formoterol Fumarate (Symbicort 80/4.5mcg -) 2 puff IH BID [facility] Diltiazem HCl (Cardizem -) 30 mg PO TID [facility] Last Admin: 08/03/18 06:48 Dose: 30 mg Enoxaparin Sodium (Lovenox -) 40 mg SQ BID [facility] Last Admin: 08/02/18 21:41 Dose: 40 mg Furosemide (Lasix Injection -) 20 mg IVPUSH DAILY [facility] Gabapentin (Neurontin -) 100 mg PO DAILY [facility] Guaifenesin (Mucinex -) 600 mg PO BID [facility] Last Admin: 08/02/18 21:41 Dose: 600 mg Guaifenesin (Robitussin -) 10 ml PO Q6H PRN PRN Reason: COUGH Azithromycin (Zithromax 500mg Ivpb (Pre-Docked)) 500 mg in 250 mls @ 250 mls/ hr IVPB DAILY [facility] Last Admin: 08/02/18 10:04 Dose: 250 mls/hr Ceftriaxone Sodium 1 gm/ (Dextrose) 50 mls @ 100 mls/hr IVPB DAILY [facility] Last Admin: 08/02/18 10:04 Dose: 100 mls/hr Insulin Aspart (Novolog Vial Sliding Scale -) 1 vial SQ ACHS [facility]; Protocol Last Admin: 08/03/18 06:00 Dose: Not Given Lactobacillus Acidophilus (Bacid -) 1 tab PO DAILY [facility] Last Admin: 08/02/18 10:03 Dose: 1 tab Methylprednisolone Sodium Succinate (Solu-Medrol -) 40 mg IVPUSH Q6H-IV [facility] Metoprolol Tartrate (Lopressor Injection -) 5 mg IVPUSH Q4H PRN PRN Reason: HYPERTENSION Last Admin: 07/31/18 17:24 Dose: 5 mg Metoprolol Tartrate (Lopressor -) 25 mg PO BID [facility] Pantoprazole Sodium (Protonix Iv) 40 mg IVPUSH DAILY [facility] Ranitidine HCl (Zantac -) 150 mg PO DAILY [facility] Rosuvastatin Calcium (Crestor -) 20 mg PO HS [facility] - Objective Vital Signs: Vital Signs Temperature 98.2 F 08/03/18 06:00 Pulse Rate 86 08/03/18 06:00 Respiratory Rate 22 H 08/03/18 06:00 Blood Pressure 140/72 08/03/18 06:00 O2 Sat by Pulse Oximetry (%) 96 08/02/18 21:00 Constitutional: Yes: Anxious Eyes: Yes: Conjunctiva Clear HENT: Yes: Atraumatic Neck: Yes: Supple Cardiovascular: Yes: Tachycardia Respiratory: Yes: Rales, Rhonchi, Wheezes Gastrointestinal: Yes: Soft. No: Tenderness Genitourinary: No: Hematuria Musculoskeletal: No: Joint Stiffness, Joint Swelling Extremities: No: Cold, Cool Edema: No Integumentary: No: Pressure Ulcer, Rash, Venous Stasis Changes Neurological: Yes: WNL, Alert, Oriented ...Motor Strength: WNL Psychiatric: Yes: WNL, Alert, Oriented. No: Agitated, Suicidal Ideation Labs: CBC, BMP 08/03/18 06:48 INR, PTT INR 1.01 (0.83-1.09) 07/08/18 16:43 - ....Imaging Other: Report Reviewed Assessment/Plan The patient is an 82 year old female with a PMH of COPD (on 2L), Stage 3a NSCC ( currently on radiation), CAD s/p [place] (s/p cardiac stent x3), HTN, HLD \admitted with acute onset of shortness of breath, acute on chronic COPD exac and bronchitis, new L sided PNA and metastatic ds lung, liver bones; borderline + troponins h/o ASHD stent, high BNP h/o CHF low EF, s/p another hemoptysis versus upper airways, new onset rapid AFib, low Platelets and anemia iv steroids, nebs, O2 and iv antibiotics BGM, sq insulin prn PULM, Cardiology f/u HR control; started on sq lovenox bid ONC f/u falls PFX prognosis guarded might need ventilatory support if respiratory status worsens - d/w pt advanced directives; she said she is NOT ready to sign DNR DNI; d/w pt and staff d/w grand son Igor and daughter Shiloh t time 40 min
[2018-08-03] MEDS ORDERED: DEXTROSE 5%-WATER - 50 ML IVPB ONE (09:06)
[2018-08-03] MEDS ORDERED: cefTRIAXone SODIUM 1 GM VIAL ONE (09:06)
[2018-08-03] MEDS: PANTOPRAZOLE SODIUM 40 MG VIAL IVPUSH SCH (09:52)
[2018-08-03] MEDS: CEFTRIAXONE 1 GM in DEXTROSE 5%-WATER - 50 ML IVPB SCH (09:52)
[2018-08-03] MEDS: GABAPENTIN 100 MG CAPSULE (FP) PO SCH (09:52)
[2018-08-03] MEDS: AZITHROMYCIN IVPB 500 MG/250 ML BAG IVPB SCH (09:52)
[2018-08-03] MEDS: ENOXAPARIN NA (PORCINE) 40 MG/0.4 ML DISP.SYRIN SQ SCH ×2 (09:53→21:47)
[2018-08-03] MEDS: LACTOBACILLUS ACIDOPHILUS 1 TABLET PO SCH (09:53)
[2018-08-03] MEDS: guaiFENesin 600 MG TABLET.ER (FP) PO SCH ×2 (09:53→21:46)
[2018-08-03] MEDS: METOPROLOL TARTRATE 25 MG TABLET (FP) PO SCH ×2 (09:53→21:46)
[2018-08-03] MEDS: RANITIDINE HCL 150 MG TABLET (FP) PO SCH (09:53)
[2018-08-03] MEDS: BUDESONIDE/FORMETEROL FUMARATE 80/4.5 mcg INHALER IH SCH ×2 (09:54→21:49)
[2018-08-03] MEDS ORDERED: FUROSEMIDE 40 MG/4 ML INJECTABLE VIAL IVPUSH SCH ×2 (10:00)
--- NOTE | 2018-08-03 11:00 | PN ---
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 Ortiz History of Present Illness: Resting on bipap. - Current Medication List Current Medications: Active Medications Acetaminophen (Tylenol -) 650 mg PO Q6H PRN PRN Reason: PAIN Albuterol Sulfate (Ventolin 0.083% Nebulizer Soln -) 1 amp NEB Q4H PRN PRN Reason: SHORT OF BREATH/WHEEZING Albuterol/Ipratropium (Duoneb -) 1 amp NEB RQ4H [facility] Last Admin: 08/03/18 07:35 Dose: 1 amp Alprazolam (Xanax -) 0.25 mg PO Q8H PRN PRN Reason: ANXIETY Budesonide/Formoterol Fumarate (Symbicort 80/4.5mcg -) 2 puff IH BID [facility] Last Admin: 08/03/18 09:54 Dose: 2 puff Diltiazem HCl (Cardizem -) 30 mg PO TID [facility] Last Admin: 08/03/18 06:48 Dose: 30 mg Enoxaparin Sodium (Lovenox -) 40 mg SQ BID [facility] Last Admin: 08/03/18 09:53 Dose: 40 mg Furosemide (Lasix Injection -) 20 mg IVPUSH DAILY [facility] Last Admin: 08/03/18 09:53 Dose: 20 mg Gabapentin (Neurontin -) 100 mg PO DAILY [facility] Last Admin: 08/03/18 09:52 Dose: 100 mg Guaifenesin (Mucinex -) 600 mg PO BID [facility] Last Admin: 08/03/18 09:53 Dose: 600 mg Guaifenesin (Robitussin -) 10 ml PO Q6H PRN PRN Reason: COUGH Azithromycin (Zithromax 500mg Ivpb (Pre-Docked)) 500 mg in 250 mls @ 250 mls/ hr IVPB DAILY [facility] Last Admin: 08/03/18 09:52 Dose: 250 mls/hr Ceftriaxone Sodium 1 gm/ (Dextrose) 50 mls @ 100 mls/hr IVPB DAILY [facility] Last Admin: 08/03/18 09:52 Dose: 100 mls/hr Insulin Aspart (Novolog Vial Sliding Scale -) 1 vial SQ ACHS [facility]; Protocol Last Admin: 08/03/18 06:00 Dose: Not Given Lactobacillus Acidophilus (Bacid -) 1 tab PO DAILY [facility] Last Admin: 08/03/18 09:53 Dose: 1 tab Methylprednisolone Sodium Succinate (Solu-Medrol -) 40 mg IVPUSH Q6H-IV [facility] Last Admin: 08/03/18 09:52 Dose: 40 mg Metoprolol Tartrate (Lopressor Injection -) 5 mg IVPUSH Q4H PRN PRN Reason: HYPERTENSION Last Admin: 07/31/18 17:24 Dose: 5 mg Metoprolol Tartrate (Lopressor -) 25 mg PO BID [facility] Last Admin: 08/03/18 09:53 Dose: 25 mg Pantoprazole Sodium (Protonix Iv) 40 mg IVPUSH DAILY [facility] Last Admin: 08/03/18 09:52 Dose: 40 mg Ranitidine HCl (Zantac -) 150 mg PO DAILY [facility] Last Admin: 08/03/18 09:53 Dose: 150 mg Rosuvastatin Calcium (Crestor -) 20 mg PO HS [facility] - Objective Vital Signs: Vital Signs Temperature 98.2 F 08/03/18 06:00 Pulse Rate 86 08/03/18 06:00 Respiratory Rate 22 H 08/03/18 06:00 Blood Pressure 140/72 08/03/18 06:00 O2 Sat by Pulse Oximetry (%) 93 L 08/03/18 07:35 Constitutional: Yes: No Distress, Calm Neck: Yes: Supple Cardiovascular: Yes: Regular Rate and Rhythm Respiratory: Yes: Regular, Diminished, On BiPap Gastrointestinal: Yes: Soft, Hypoactive Bowel Sounds Edema: No Labs: CBC, BMP 08/03/18 06:48 08/03/18 06:48 INR, PTT INR 1.01 (0.83-1.09) 07/08/18 16:43 - ....Imaging EKG: Report Reviewed (Tele: NSR) Assessment/Plan - Problems (1) Elevated troponin I level Assessment/Plan: 0.02-->0.21-->0.19; normal CK EKG: PAF, periods of RVR. Pt likely has demand ischemia from exacerbation of COPD, diastolic CHF, CA, tachycardia. Given pt's advanced lung CA, would recommend conservative management of cardiac condition (she is on metoprolol, diltiazem, statin, ASA, Lovenox) Code(s): R74.8 - ABNORMAL LEVELS OF OTHER SERUM ENZYMES (2) Adenocarcinoma, lung Assessment/Plan: Advanced CA, with bone and liver metastases. F/u with hem/onc. Code(s): C34.90 - MALIGNANT NEOPLASM OF UNSP PART OF UNSP BRONCHUS OR LUNG (3) Shortness of breath Assessment/Plan: Deteriorating pulmonary status on BD, bipap, IV steroids and empiric abx Pt continues to say she does not want to be intubated. She (and her grandson, present today) are aware she must make a decision as to what measures are to be taken should she become refractory to conventional treatment. Code(s): R06.02 - SHORTNESS OF BREATH (4) HTN (hypertension) Assessment/Plan: On metoprolol, diltiazem, and furosemide. Code(s): I10 - ESSENTIAL (PRIMARY) HYPERTENSION (5) Hyperlipidemia Assessment/Plan: on statin Code(s): E78.5 - HYPERLIPIDEMIA, UNSPECIFIED (6) Acute on chronic diastolic CHF (congestive heart failure) Assessment/Plan: On metoprolol, diltiazem, and Furosemide f/u BUn/Cr, electrolytes, daily weight, Is and Os. Code(s): I50.33 - ACUTE ON CHRONIC DIASTOLIC (CONGESTIVE) HEART FAILURE (7) Thrombocytopenia Assessment/Plan: Developed during this admission. Off ASA; platelets remain low (now in the lower 50s). Code(s): D69.6 - THROMBOCYTOPENIA, UNSPECIFIED (8) Leukocytosis Assessment/Plan: WBCs reducing; now 10.3; afebrile. F/u with hem/onc. Code(s): D72.829 - ELEVATED WHITE BLOOD CELL COUNT, UNSPECIFIED (9) Atrial fibrillation Assessment/Plan: On metoprolol 25 bid and diltiazem 30 tid for HR control. On Lovenox for anticoagulation; platelets are being folllowed closely; as noted , Lovenox may have to be stopped if they drop below 50. Code(s): I48.91 - UNSPECIFIED ATRIAL FIBRILLATION
--- NOTE | 2018-08-03 12:27 | CONSULT ---
Consult Consult Specialty:: Nephrology Referred by:: Dr. Stein Reason for Consultation:: Rising Serum Sodium - History of Present Illness Chief Complaint: 82 yr old woman with recently dx'd with lung adenocarcinoma, COPD on home O2 @2L, HTN, HLD, ACS s/p myocardial infarction x 2, brought in post-RT treatment yesterday due to trouble breathing. The patient on Bipap. Noted to have progressive Hypernatremia. - History Source History Provided By: Patient, Medical Record Limitations to Obtaining History: Clinical Condition - Past Medical History Cardio/Vascular: Yes: CAD, CHF, HTN Pulmonary: Yes: Bronchitis, Cancer, COPD, O2 Dependent. 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 History of Recent Travel: No Home Medications - Allergies Allergies/Adverse Reactions: Allergies Allergy/AdvReac Type Severity Reaction Status Date / Time No Known Allergies Allergy Verified 04/19/18 14:12 - Home Medications Home Medications: Ambulatory Orders Metoprolol Tartrate 25 mg PO BID 07/18/16 Rosuvastatin Calcium [Crestor] 20 mg PO HS 07/18/16 Acetaminophen [Tylenol .Regular Strength -] 650 mg PO Q6H PRN tablet 05/01/18 Albuterol 0.083% Nebulizer [place] [Ventolin 0.083% Nebulizer Soln -] 1 amp NEB Q4H PRN #90 amp 05/01/18 Aspirin [ASA -] 81 mg PO DAILY #90 tab 05/01/18 Clopidogrel Bisulfate [Plavix -] 75 mg PO DAILY #90 tab 05/01/18 Tiotropium [employer] [Spiriva Respimat] 2 puff IH DAILY #90 inhaler 05/01/18 Budesonide/Formeterol Fumarate [SYMBICORT 80/4.5mcg -] 2 inh PO BID 07/08/18 Furosemide [Lasix -] 20 mg PO ASDIR 07/08/18 Family Disease History - Family Disease History Family Disease History: Diabetes: Father ( 73 diabetic complications), Daughter (breast cancer, CVAs), CA: Brother (NHL,larynx ca, liver transplant, unknown cancer), Sister (lung cancer), Daughter, Other: Mother ( of diverticulitis) Review of Systems - Review of Systems Constitutional: reports: Loss of Appetite, Weakness Neck: reports: Stiffness Cardiovascular: reports: Shortness of Breath Respiratory: reports: SOB Musculoskeletal: reports: Muscle Weakness Neurological: reports: No Symptoms Endocrine: denies: No Symptoms Physical Exam Vital Signs: Vital Signs Temperature 98.2 F 08/03/18 06:00 Pulse Rate 86 08/03/18 06:00 Respiratory Rate 22 H 08/03/18 06:00 Blood Pressure 140/72 08/03/18 06:00 O2 Sat by Pulse Oximetry (%) 93 L 08/03/18 07:35 Constitutional: Yes: Anxious, Pallor, Thin Eyes: Yes: Conjunctiva Clear HENT: Yes: Normocephalic Neck: Yes: Supple, Trachea Midline Cardiovascular: Yes: Tachycardia, S1, S2 Respiratory: Yes: CTA Bilaterally, Diminished, On BiPap Gastrointestinal: Yes: Normal Bowel Sounds, Soft Musculoskeletal: Yes: Muscle Weakness Neurological: Yes: Alert Labs: CBC, BMP 08/03/18 06:48 08/03/18 06:48 Problem List - Problems (1) Hypernatremia Code(s): E87.0 - HYPEROSMOLALITY AND HYPERNATREMIA (2) Adenocarcinoma, lung Code(s): C34.90 - MALIGNANT NEOPLASM OF UNSP PART OF UNSP BRONCHUS OR LUNG (3) Atrial fibrillation Code(s): I48.91 - UNSPECIFIED ATRIAL FIBRILLATION (4) Liver mass, right lobe Code(s): R16.0 - HEPATOMEGALY, NOT ELSEWHERE CLASSIFIED (5) Shortness of breath Code(s): R06.02 - SHORTNESS OF BREATH (6) Anxiety and depression Code(s): F41.9 - ANXIETY DISORDER, UNSPECIFIED; F32.9 - MAJOR DEPRESSIVE DISORDER, SINGLE EPISODE, UNSPECIFIED (7) Diastolic CHF Code(s): I50.30 - UNSPECIFIED DIASTOLIC (CONGESTIVE) HEART FAILURE (8) HTN (hypertension) Code(s): I10 - ESSENTIAL (PRIMARY) HYPERTENSION Assessment/Plan 82 yr old woman with recently diagnosed with Adenocarcinoma Lung, COPD on home O2 , HTN, HLD, ACS s/p MLasix for Myocardial infarction x 2, brought in post-RT treatment yesterday due to trouble breathing. She has been having increased sob, worse with exertion and cough.Patient had been getting RT. The patient has progressive Hypernatremia. Had been on IV loop diuretics. The patient continues to be short of breath, and at this point her symptoms may be all related to progressive pulmonary disease. Plan: Will hold off Lasix for now. Will not give IV hydration in view of her generally unstable cardiac and hemodynamic situation. Will monitor the renal function. Detailed w/u not warranted at this point. Lili Choudhury MD
[2018-08-03 12:53] LABS: ANISOCYTOSIS 1+; MACROCYTOSIS 0; OVALOCYTE 1+; PLATELET ESTIMATE DECREASED
--- NOTE | 2018-08-03 13:06 | PN ---
Progress Note (short form) - Note Progress Note: Awake and alert on NIPPV. Breathing about the same. Intake & Output 07/31/18 08/01/18 08/02/18 08/03/18 23:59 23:59 23:59 23:59 Intake Total 540 800 520 220 Balance 540 800 520 220 Last Vital Signs Temp Pulse Resp BP Pulse Ox 98.2 F 86 22 H 140/72 93 L 08/03/18 06:00 08/03/18 06:00 08/03/18 06:00 08/03/18 06:00 08/03/18 07:35 Active Medications Acetaminophen (Tylenol -) 650 mg PO Q6H PRN PRN Reason: PAIN Albuterol Sulfate (Ventolin 0.083% Nebulizer Soln -) 1 amp NEB Q4H PRN PRN Reason: SHORT OF BREATH/WHEEZING Albuterol/Ipratropium (Duoneb -) 1 amp NEB RQ4H [facility] Last Admin: 08/03/18 07:35 Dose: 1 amp Alprazolam (Xanax -) 0.25 mg PO Q8H PRN PRN Reason: ANXIETY Budesonide/Formoterol Fumarate (Symbicort 80/4.5mcg -) 2 puff IH BID [facility] Last Admin: 08/03/18 09:54 Dose: 2 puff Diltiazem HCl (Cardizem -) 30 mg PO TID [facility] Last Admin: 08/03/18 06:48 Dose: 30 mg Enoxaparin Sodium (Lovenox -) 40 mg SQ BID [facility] Last Admin: 08/03/18 09:53 Dose: 40 mg Gabapentin (Neurontin -) 100 mg PO DAILY [facility] Last Admin: 08/03/18 09:52 Dose: 100 mg Guaifenesin (Mucinex -) 600 mg PO BID [facility] Last Admin: 08/03/18 09:53 Dose: 600 mg Guaifenesin (Robitussin -) 10 ml PO Q6H PRN PRN Reason: COUGH Azithromycin (Zithromax 500mg Ivpb (Pre-Docked)) 500 mg in 250 mls @ 250 mls/ hr IVPB DAILY [facility] Last Admin: 08/03/18 09:52 Dose: 250 mls/hr Ceftriaxone Sodium 1 gm/ (Dextrose) 50 mls @ 100 mls/hr IVPB DAILY [facility] Last Admin: 08/03/18 09:52 Dose: 100 mls/hr Insulin Aspart (Novolog Vial Sliding Scale -) 1 vial SQ ACHS [facility]; Protocol Last Admin: 08/03/18 11:48 Dose: 4 units Lactobacillus Acidophilus (Bacid -) 1 tab PO DAILY [facility] Last Admin: 08/03/18 09:53 Dose: 1 tab Methylprednisolone Sodium Succinate (Solu-Medrol -) 40 mg IVPUSH Q6H-IV [facility] Last Admin: 08/03/18 09:52 Dose: 40 mg Metoprolol Tartrate (Lopressor Injection -) 5 mg IVPUSH Q4H PRN PRN Reason: HYPERTENSION Last Admin: 07/31/18 17:24 Dose: 5 mg Metoprolol Tartrate (Lopressor -) 25 mg PO BID [facility] Last Admin: 08/03/18 09:53 Dose: 25 mg Pantoprazole Sodium (Protonix Iv) 40 mg IVPUSH DAILY [facility] Last Admin: 08/03/18 09:52 Dose: 40 mg Ranitidine HCl (Zantac -) 150 mg PO DAILY [facility] Last Admin: 08/03/18 09:53 Dose: 150 mg Rosuvastatin Calcium (Crestor -) 20 mg PO [facility] Constitutional: Yes: Anxious, Mild Distress, on NIPPV Eyes: Yes: WNL HENT: Yes: WNL Neck: Yes: WNL Cardiovascular: Yes: Pulse Irregular, S1, S2 Respiratory: Yes: Diminished at the bases, No wheezing Gastrointestinal: Yes: Normal Bowel Sounds, Soft Extremities: Yes: WNL Edema: No Labs: Laboratory Results - last 24 hr 08/02/18 08/02/18 08/03/18 17:03 21:55 04:50 WBC RBC Hgb Hct MCV MCH MCHC RDW Plt Count MPV Absolute Neuts (auto) Neutrophils % Neutrophils % (Manual) Band Neutrophils % Lymphocytes % Lymphocytes % (Manual) Monocytes % Monocytes % (Manual) Eosinophils % Eosinophils % (Manual) Basophils % Basophils % (Manual) Myelocytes % (Man) Promyelocytes % (Man) Blast Cells % (Manual) Nucleated RBC % Metamyelocytes Hypochromia Platelet Estimate Polychromasia Poikilocytosis Anisocytosis Microcytosis Macrocytosis Ovalocytes Sodium Potassium Chloride Carbon Dioxide Anion Gap BUN Creatinine Creat Clearance w eGFR POC Glucometer 122 302 124 Random Glucose Calcium 0208/03/18 08/03/18 06:48 06:48 11:41 WBC 11.9 H RBC 2.73 L Hgb 8.1 L Hct 24.7 L MCV 90.5 MCH 29.7 MCHC 32.8 RDW 17.8 H Plt Count 57 L MPV 11.4 H Absolute Neuts (auto) 11.5 H Neutrophils % 97.0 H Neutrophils % (Manual) 97.9 H Band Neutrophils % 0.0 Lymphocytes % 0.7 L Lymphocytes % (Manual) 0.0 L Monocytes % 2.1 L Monocytes % (Manual) 2 L D Eosinophils % 0.0 Eosinophils % (Manual) 0.0 Basophils % 0.2 Basophils % (Manual) 0.0 Myelocytes % (Man) 0 Promyelocytes % (Man) 0 Blast Cells % (Manual) 0 Nucleated RBC % 1 H Metamyelocytes 0 Hypochromia 0 Platelet Estimate Decreased Polychromasia 0 Poikilocytosis 1+ Anisocytosis 1+ Microcytosis 1+ Macrocytosis 0 Ovalocytes 1+ Sodium 149 H Potassium 3.6 Chloride 104 Carbon Dioxide 40 H Anion Gap 4 L BUN 60 H Creatinine 0.7 Creat Clearance w eGFR > 60 POC Glucometer 236 Random Glucose 124 H Calcium 8.8 Assessment/Plan Problem List - Problems (1) Adenocarcinoma, lung Code(s): C34.90 - MALIGNANT NEOPLASM OF UNSP PART OF UNSP BRONCHUS OR LUNG (2) ASHD (arteriosclerotic heart disease) Code(s): I25.10 - ATHSCL HEART DISEASE OF [place] CORONARY ARTERY W/O ANG PCTRS (3) Anxiety and depression Code(s): F41.9 - ANXIETY DISORDER, UNSPECIFIED; F32.9 - MAJOR DEPRESSIVE DISORDER, SINGLE EPISODE, UNSPECIFIED (4) COPD (chronic obstructive pulmonary disease) Code(s): J44.9 - CHRONIC OBSTRUCTIVE PULMONARY DISEASE, UNSPECIFIED Qualifiers: COPD type: unspecified COPD Qualified Code(s): J44.9 - Chronic obstructive pulmonary disease, unspecified (5) COPD exacerbation Code(s): J44.1 - CHRONIC OBSTRUCTIVE PULMONARY DISEASE W (ACUTE) EXACERBATION (6) Cough Code(s): R05 - COUGH (7) Diastolic CHF Code(s): I50.30 - UNSPECIFIED DIASTOLIC (CONGESTIVE) HEART FAILURE (8) HTN (hypertension) Code(s): I10 - ESSENTIAL (PRIMARY) HYPERTENSION (9) Hyperlipidemia Code(s): E78.5 - HYPERLIPIDEMIA, UNSPECIFIED (10) Hypothyroid Code(s): E03.9 - HYPOTHYROIDISM, UNSPECIFIED (11) Shortness of breath Code(s): R06.02 - SHORTNESS OF BREATH A/P Acute COPD Exacerbation s/p RT session NSCLC - Adenocarcinoma mets to rib/liver LV Diastolic Dysfunction AFIB HTN Hypothyroidism Hyperlipidemia - Medrol - inhaled bronchodilators - on empiric antibiotics - rehab/PT - DVT prophylaxis - continue bipap ,O2 - AC - VM as tolerated Dr Carlos Problem List - Problems (1) Adenocarcinoma, lung Code(s): C34.90 - MALIGNANT NEOPLASM OF UNSP PART OF UNSP BRONCHUS OR LUNG (2) ASHD (arteriosclerotic heart disease) Code(s): I25.10 - ATHSCL HEART DISEASE OF [place] CORONARY ARTERY W/O ANG PCTRS (3) Anxiety and depression Code(s): F41.9 - ANXIETY DISORDER, UNSPECIFIED; F32.9 - MAJOR DEPRESSIVE DISORDER, SINGLE EPISODE, UNSPECIFIED (4) COPD (chronic obstructive pulmonary disease) Code(s): J44.9 - CHRONIC OBSTRUCTIVE PULMONARY DISEASE, UNSPECIFIED Qualifiers: COPD type: unspecified COPD Qualified Code(s): J44.9 - Chronic obstructive pulmonary disease, unspecified (5) COPD exacerbation Code(s): J44.1 - CHRONIC OBSTRUCTIVE PULMONARY DISEASE W (ACUTE) EXACERBATION (6) Cough Code(s): R05 - COUGH (7) Diastolic CHF Code(s): I50.30 - UNSPECIFIED DIASTOLIC (CONGESTIVE) HEART FAILURE (8) HTN (hypertension) Code(s): I10 - ESSENTIAL (PRIMARY) HYPERTENSION (9) Hyperlipidemia Code(s): E78.5 - HYPERLIPIDEMIA, UNSPECIFIED (10) Hypothyroid Code(s): E03.9 - HYPOTHYROIDISM, UNSPECIFIED (11) Shortness of breath Code(s): R06.02 - SHORTNESS OF BREATH
[2018-08-03] MEDS: ROSUVASTATIN CA 20 MG TABLET (FP) PO SCH (21:46)
[2018-08-03] MEDS: ALPRAZolam 0.25 MG TABLET PO PRN (21:46)
[2018-08-04] MEDS: methylPREDNISolone NA SUCC 40 MG/1 ML VIAL IVPUSH SCH ×4 (03:00→21:33)
[2018-08-04] MEDS: ALBUTEROL SO4 2.5/IPRATROPIUM 0.5 INH SOL 3 ML VIAL.NEB. NEB SCH ×6 (04:00→19:54)
[2018-08-04] MEDS: dilTIAZem HCL 30 MG TABLET (FP) PO SCH ×3 (06:36→21:33)
[2018-08-04] MEDS: INSULIN SLIDING SCALE (NOVOLOG) 1 VIAL SQ SCH ×4 (07:15→21:36)
[2018-08-04 07:43] LABS: BASO % 0.1 % (0-2.0); HEMOGLOBIN 7.5 GM/dL (10.7-15.3); MCH 29.9 pg (25.7-33.7); MCHC 32.8 g/dl (32.0-36.0); MEAN CELL VOLUME 91.2 fl (80-96); MEAN PLT VOLUME 11.4 fl (7.5-11.1); MONO % 1.7 % (3.8-10.2); NEUT % 97.2 % (42.8-82.8); PLATELET COUNT 50 K/MM3 (134-434); RBC 2.52 M/mm3 (3.60-5.2); RDW 17.8 % (11.6-15.6); WHITE BLOOD COUNT 8.9 K/mm3 (4.0-10.0)
[2018-08-04 08:25] LABS: ALK PHOS 65 U/L (45-117); BILIRUBIN,TOTAL 0.7 mg/dL (0.2-1); BLOOD UREA NITROGEN 63 mg/dL (7-18); CALCIUM 8.8 mg/dL (8.5-10.1); CHLORIDE 104 mmol/L (98-107); CO2 42 mmol/L (21-32); CREATININE 0.8 mg/dL (0.55-1.3); GLUCOSE,RANDOM 222 mg/dL (74-106); POTASSIUM 3.2 mmol/L (3.5-5.1); SGOT/AST 28 U/L (15-37); SGPT/ALT 74 U/L (13-61); SODIUM 151 mmol/L (136-145); TOT PROT 5.3 g/dl (6.4-8.2)
[2018-08-04 08:41] LABS: ANION GAP 6 MMOL/L (8-16)
[2018-08-04] MEDS ORDERED: DEXTROSE 5%-WATER - 50 ML IVPB ONE (09:08)
[2018-08-04] MEDS ORDERED: cefTRIAXone SODIUM 1 GM VIAL ONE (09:08)
[2018-08-04] MEDS: guaiFENesin 600 MG TABLET.ER (FP) PO SCH ×2 (09:44→21:33)
[2018-08-04] MEDS: AZITHROMYCIN IVPB 500 MG/250 ML BAG IVPB SCH (09:44)
[2018-08-04] MEDS: PANTOPRAZOLE SODIUM 40 MG VIAL IVPUSH SCH (09:45)
[2018-08-04] MEDS: RANITIDINE HCL 150 MG TABLET (FP) PO SCH (09:45)
[2018-08-04] MEDS: GABAPENTIN 100 MG CAPSULE (FP) PO SCH (09:45)
[2018-08-04] MEDS: LACTOBACILLUS ACIDOPHILUS 1 TABLET PO SCH (09:45)
[2018-08-04] MEDS: METOPROLOL TARTRATE 25 MG TABLET (FP) PO SCH ×2 (09:45→21:33)
[2018-08-04] MEDS: CEFTRIAXONE 1 GM in DEXTROSE 5%-WATER - 50 ML IVPB SCH (09:45)
[2018-08-04] MEDS: BUDESONIDE/FORMETEROL FUMARATE 80/4.5 mcg INHALER IH SCH ×2 (09:46→21:34)
--- NOTE | 2018-08-04 09:54 | PN ---
Progress Note, Physician Chief Complaint: has one episode of BRBPR last night (small amnt) sq lovenox stopped; d/w pt possible risks DVT/PE/[place]/CVA off anticoagulation but risks of bleeding (had hemoptysis now lower GIB and dropped H&H and PLT) preclude use of AC at this time. NO bleeding at this time; will transfuse 2 U PRBC ordered and d/w pt and nurse; pt agreed. still with chest tightness and coughing but feels a little better; no CP; afebrile; no hemoptysis - Current Medication List Current Medications: Active Medications Acetaminophen (Tylenol -) 650 mg PO Q6H PRN PRN Reason: PAIN Albuterol Sulfate (Ventolin 0.083% Nebulizer Soln -) 1 amp NEB Q4H PRN PRN Reason: SHORT OF BREATH/WHEEZING Albuterol/Ipratropium (Duoneb -) 1 amp NEB RQ4H [facility] Last Admin: 08/04/18 07:54 Dose: 1 amp Alprazolam (Xanax -) 0.25 mg PO Q8H PRN PRN Reason: ANXIETY Last Admin: 08/03/18 21:46 Dose: 0.25 mg Budesonide/Formoterol Fumarate (Symbicort 80/4.5mcg -) 2 puff IH BID [facility] Last Admin: 08/04/18 09:46 Dose: 2 puff Diltiazem HCl (Cardizem -) 30 mg PO TID [facility] Last Admin: 08/04/18 06:36 Dose: 30 mg Gabapentin (Neurontin -) 100 mg PO DAILY [facility] Last Admin: 08/04/18 09:45 Dose: 100 mg Guaifenesin (Mucinex -) 600 mg PO BID [facility] Last Admin: 08/04/18 09:44 Dose: 600 mg Guaifenesin (Robitussin -) 10 ml PO Q6H PRN PRN Reason: COUGH Azithromycin (Zithromax 500mg Ivpb (Pre-Docked)) 500 mg in 250 mls @ 250 mls/ hr IVPB DAILY [facility] Last Admin: 08/04/18 09:44 Dose: 250 mls/hr Ceftriaxone Sodium 1 gm/ (Dextrose) 50 mls @ 100 mls/hr IVPB DAILY [facility] Last Admin: 08/04/18 09:45 Dose: 100 mls/hr Insulin Aspart (Novolog Vial Sliding Scale -) 1 vial SQ ACHS [facility]; Protocol Last Admin: 08/04/18 07:15 Dose: 4 units Lactobacillus Acidophilus (Bacid -) 1 tab PO DAILY [facility] Last Admin: 08/04/18 09:45 Dose: 1 tab Methylprednisolone Sodium Succinate (Solu-Medrol -) 40 mg IVPUSH Q6H-IV [facility] Last Admin: 08/04/18 09:44 Dose: 40 mg Metoprolol Tartrate (Lopressor Injection -) 5 mg IVPUSH Q4H PRN PRN Reason: HYPERTENSION Last Admin: 07/31/18 17:24 Dose: 5 mg Metoprolol Tartrate (Lopressor -) 25 mg PO BID [facility] Last Admin: 08/04/18 09:45 Dose: 25 mg Pantoprazole Sodium (Protonix Iv) 40 mg IVPUSH DAILY [facility] Last Admin: 08/04/18 09:45 Dose: 40 mg Ranitidine HCl (Zantac -) 150 mg PO DAILY [facility] Last Admin: 08/04/18 09:45 Dose: 150 mg Rosuvastatin Calcium (Crestor -) 20 mg PO HS [facility] Last Admin: 08/03/18 21:46 Dose: 20 mg - Objective Vital Signs: Vital Signs Temperature 97.9 F 08/03/18 20:39 Pulse Rate 96 H 08/03/18 20:39 Respiratory Rate 20 08/03/18 20:39 Blood Pressure 114/60 08/03/18 20:39 O2 Sat by Pulse Oximetry (%) 94 L 08/04/18 07:56 Constitutional: Yes: Anxious Eyes: Yes: Conjunctiva Clear HENT: Yes: Atraumatic Neck: Yes: Supple Cardiovascular: Yes: Regular Rate and Rhythm Respiratory: Yes: Rales, Rhonchi, Wheezes Gastrointestinal: Yes: Soft. No: Tenderness Genitourinary: No: Hematuria Musculoskeletal: No: Joint Stiffness, Joint Swelling Extremities: No: Cold, Cool, Cyanosis Edema: No Integumentary: No: Rash, Venous Stasis Changes Neurological: Yes: WNL, Alert, Oriented ...Motor Strength: WNL Psychiatric: Yes: WNL, Alert, Oriented. 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 d/w pt risks alternatives and possible consequences she agreed with tx. GI recalled f/u labs and CXR iv steroids, nebs, O2 and iv antibiotics IV PPI BGM, sq insulin prn PULM, Cardiology f/u HR control; ONC f/u falls PFX, gastric, DVT aspiration PFX; prognosis guarded might need ventilatory support if respiratory status worsens d/w pt and staff t time 40 min
[2018-08-04] MEDS ORDERED: INSULIN (NOVOLOG) ASPART 100 UNITS/ML 10ML VIAL ONE (11:43)
--- NOTE | 2018-08-04 12:04 | PN ---
Progress Note (short form) - Note Progress Note: Awake and alert on NIPPV. Breathing feels a little better today. Intake & Output 08/01/18 08/02/18 08/03/18 08/04/18 23:59 23:59 23:59 23:59 Intake Total 800 520 970 100 Balance 800 520 970 100 Last Vital Signs Temp Pulse Resp BP Pulse Ox 99.5 F 99 H 26 H 138/54 L 95 08/04/18 10:00 08/04/18 10:00 08/04/18 10:00 08/04/18 10:00 08/04/18 09:00 Active Medications Acetaminophen (Tylenol -) 650 mg PO Q6H PRN PRN Reason: PAIN Albuterol Sulfate (Ventolin 0.083% Nebulizer Soln -) 1 amp NEB Q4H PRN PRN Reason: SHORT OF BREATH/WHEEZING Albuterol/Ipratropium (Duoneb -) 1 amp NEB RQ4H [facility] Last Admin: 08/04/18 12:02 Dose: 1 amp Alprazolam (Xanax -) 0.25 mg PO Q8H PRN PRN Reason: ANXIETY Last Admin: 08/03/18 21:46 Dose: 0.25 mg Budesonide/Formoterol Fumarate (Symbicort 80/4.5mcg -) 2 puff IH BID [facility] Last Admin: 08/04/18 09:46 Dose: 2 puff Diltiazem HCl (Cardizem -) 30 mg PO TID [facility] Last Admin: 08/04/18 06:36 Dose: 30 mg Gabapentin (Neurontin -) 100 mg PO DAILY [facility] Last Admin: 08/04/18 09:45 Dose: 100 mg Guaifenesin (Mucinex -) 600 mg PO BID [facility] Last Admin: 08/04/18 09:44 Dose: 600 mg Guaifenesin (Robitussin -) 10 ml PO Q6H PRN PRN Reason: COUGH Azithromycin (Zithromax 500mg Ivpb (Pre-Docked)) 500 mg in 250 mls @ 250 mls/ hr IVPB DAILY [facility] Last Admin: 08/04/18 09:44 Dose: 250 mls/hr Ceftriaxone Sodium 1 gm/ (Dextrose) 50 mls @ 100 mls/hr IVPB DAILY [facility] Last Admin: 08/04/18 09:45 Dose: 100 mls/hr Insulin Aspart (Novolog Vial Sliding Scale -) 1 vial SQ ACHS [facility]; Protocol Last Admin: 08/04/18 11:49 Dose: 6 units Lactobacillus Acidophilus (Bacid -) 1 tab PO DAILY [facility] Last Admin: 08/04/18 09:45 Dose: 1 tab Methylprednisolone Sodium Succinate (Solu-Medrol -) 40 mg IVPUSH Q6H-IV [facility] Last Admin: 08/04/18 09:44 Dose: 40 mg Metoprolol Tartrate (Lopressor Injection -) 5 mg IVPUSH Q4H PRN PRN Reason: HYPERTENSION Last Admin: 07/31/18 17:24 Dose: 5 mg Metoprolol Tartrate (Lopressor -) 25 mg PO BID [facility] Last Admin: 08/04/18 09:45 Dose: 25 mg Pantoprazole Sodium (Protonix Iv) 40 mg IVPUSH DAILY [facility] Last Admin: 08/04/18 09:45 Dose: 40 mg Potassium Chloride (K-Dur -) 20 meq PO DAILY [facility] Ranitidine HCl (Zantac -) 150 mg PO DAILY [facility] Last Admin: 08/04/18 09:45 Dose: 150 mg Rosuvastatin Calcium (Crestor -) 20 mg PO HS [facility] Last Admin: 08/03/18 21:46 Dose: 20 mg Constitutional: Yes: NAD on NIPPV Eyes: Yes: WNL HENT: Yes: WNL Neck: Yes: WNL Cardiovascular: Yes: Pulse Irregular, S1, S2 Respiratory: Yes: Diminished at the bases, No wheezing Gastrointestinal: Yes: Normal Bowel Sounds, Soft Extremities: Yes: WNL Edema: No Labs: Laboratory Results - last 24 hr 08/03/18 08/03/18 08/03/18 06:48 16:55 21:21 WBC RBC Hgb Hct MCV MCH MCHC RDW Plt Count MPV Absolute Neuts (auto) Neutrophils % Neutrophils % (Manual) 97.9 H Band Neutrophils % 0.0 Lymphocytes % Lymphocytes % (Manual) 0.0 L Monocytes % Monocytes % (Manual) 2 L D Eosinophils % Eosinophils % (Manual) 0.0 Basophils % Basophils % (Manual) 0.0 Myelocytes % (Man) 0 Promyelocytes % (Man) 0 Blast Cells % (Manual) 0 Nucleated RBC % 1 H Metamyelocytes 0 Hypochromia 0 Platelet Estimate Decreased Polychromasia 0 Poikilocytosis 1+ Anisocytosis 1+ Microcytosis 1+ Macrocytosis 0 Ovalocytes 1+ Sodium Potassium Chloride Carbon Dioxide Anion Gap BUN Creatinine Creat Clearance w eGFR POC Glucometer 256 181 Random Glucose Calcium Total Bilirubin AST ALT Alkaline Phosphatase Total Protein Albumin Crossmatch 08/04/18 08/04/18 08/04/18 06:40 06:40 06:56 WBC 8.9 RBC 2.52 L Hgb 7.5 L Hct 23.0 L MCV 91.2 MCH 29.9 MCHC 32.8 RDW 17.8 H Plt Count 50 L MPV 11.4 H Absolute Neuts (auto) 8.6 H Neutrophils % 97.2 H Neutrophils % (Manual) Band Neutrophils % Lymphocytes % 1.0 L D Lymphocytes % (Manual) Monocytes % 1.7 L Monocytes % (Manual) Eosinophils % 0.0 Eosinophils % (Manual) Basophils % 0.1 Basophils % (Manual) Myelocytes % (Man) Promyelocytes % (Man) Blast Cells % (Manual) Nucleated RBC % 0 Metamyelocytes Hypochromia Platelet Estimate Polychromasia Poikilocytosis Anisocytosis Microcytosis Macrocytosis Ovalocytes Sodium 151 H Potassium 3.2 L Chloride 104 Carbon Dioxide 42 H Anion Gap 6 L BUN 63 H Creatinine 0.8 Creat Clearance w eGFR > 60 POC Glucometer 250 Random Glucose 222 H Calcium 8.8 Total Bilirubin 0.7 AST 28 ALT 74 H Alkaline Phosphatase 65 Total Protein 5.3 L Albumin 3.0 L Crossmatch 08/04/18 08/04/18 10:50 11:35 WBC RBC Hgb Hct MCV MCH MCHC RDW Plt Count MPV Absolute Neuts (auto) Neutrophils % Neutrophils % (Manual) Band Neutrophils % Lymphocytes % Lymphocytes % (Manual) Monocytes % Monocytes % (Manual) Eosinophils % Eosinophils % (Manual) Basophils % Basophils % (Manual) Myelocytes % (Man) Promyelocytes % (Man) Blast Cells % (Manual) Nucleated RBC % Metamyelocytes Hypochromia Platelet Estimate Polychromasia Poikilocytosis Anisocytosis Microcytosis Macrocytosis Ovalocytes Sodium Potassium Chloride Carbon Dioxide Anion Gap BUN Creatinine Creat Clearance w eGFR POC Glucometer 275 Random Glucose Calcium Total Bilirubin AST ALT Alkaline Phosphatase Total Protein Albumin Crossmatch See Detail Assessment/Plan Problem List - Problems (1) Adenocarcinoma, lung Code(s): C34.90 - MALIGNANT NEOPLASM OF UNSP PART OF UNSP BRONCHUS OR LUNG (2) ASHD (arteriosclerotic heart disease) Code(s): I25.10 - ATHSCL HEART DISEASE OF [place] CORONARY ARTERY W/O ANG PCTRS (3) Anxiety and depression Code(s): F41.9 - ANXIETY DISORDER, UNSPECIFIED; F32.9 - MAJOR DEPRESSIVE DISORDER, SINGLE EPISODE, UNSPECIFIED (4) COPD (chronic obstructive pulmonary disease) Code(s): J44.9 - CHRONIC OBSTRUCTIVE PULMONARY DISEASE, UNSPECIFIED Qualifiers: COPD type: unspecified COPD Qualified Code(s): J44.9 - Chronic obstructive pulmonary disease, unspecified (5) COPD exacerbation Code(s): J44.1 - CHRONIC OBSTRUCTIVE PULMONARY DISEASE W (ACUTE) EXACERBATION (6) Cough Code(s): R05 - COUGH (7) Diastolic CHF Code(s): I50.30 - UNSPECIFIED DIASTOLIC (CONGESTIVE) HEART FAILURE (8) HTN (hypertension) Code(s): I10 - ESSENTIAL (PRIMARY) HYPERTENSION (9) Hyperlipidemia Code(s): E78.5 - HYPERLIPIDEMIA, UNSPECIFIED (10) Hypothyroid Code(s): E03.9 - HYPOTHYROIDISM, UNSPECIFIED (11) Shortness of breath Code(s): R06.02 - SHORTNESS OF BREATH A/P Acute COPD Exacerbation s/p RT session NSCLC - Adenocarcinoma mets to rib/liver LV Diastolic Dysfunction AFIB HTN Hypothyroidism Hyperlipidemia - Medrol - inhaled bronchodilators - on empiric antibiotics - rehab/PT - DVT prophylaxis - NIPPV support as needed - AC - VM as tolerated Dr Carlos Problem List - Problems (1) Adenocarcinoma, lung Code(s): C34.90 - MALIGNANT NEOPLASM OF UNSP PART OF UNSP BRONCHUS OR LUNG (2) ASHD (arteriosclerotic heart disease) Code(s): I25.10 - ATHSCL HEART DISEASE OF [place] CORONARY ARTERY W/O ANG PCTRS (3) Anxiety and depression Code(s): F41.9 - ANXIETY DISORDER, UNSPECIFIED; F32.9 - MAJOR DEPRESSIVE DISORDER, SINGLE EPISODE, UNSPECIFIED (4) COPD (chronic obstructive pulmonary disease) Code(s): J44.9 - CHRONIC OBSTRUCTIVE PULMONARY DISEASE, UNSPECIFIED Qualifiers: COPD type: unspecified COPD Qualified Code(s): J44.9 - Chronic obstructive pulmonary disease, unspecified (5) COPD exacerbation Code(s): J44.1 - CHRONIC OBSTRUCTIVE PULMONARY DISEASE W (ACUTE) EXACERBATION (6) Cough Code(s): R05 - COUGH (7) Diastolic CHF Code(s): I50.30 - UNSPECIFIED DIASTOLIC (CONGESTIVE) HEART FAILURE (8) HTN (hypertension) Code(s): I10 - ESSENTIAL (PRIMARY) HYPERTENSION (9) Hyperlipidemia Code(s): E78.5 - HYPERLIPIDEMIA, UNSPECIFIED (10) Hypothyroid Code(s): E03.9 - HYPOTHYROIDISM, UNSPECIFIED (11) Shortness of breath Code(s): R06.02 - SHORTNESS OF BREATH
[2018-08-04] MEDS: POTASSIUM CHLORIDE TABS 20 MEQ TABLET.ER (FP) PO SCH (12:12)
--- NOTE | 2018-08-04 12:30 | PN ---
Progress Note, Physician Chief Complaint: This is a 82 yr old female with recently dx'd with lung adenocarcinoma, COPD on home O2 @2L, HTN, HLD, ACS s/p myocardial infarction x 2, brought in post-RT treatment due to trouble breathing. The patient on Bipap. Has progressive Hypernatremia. History of Present Illness: 82 yr old woman with recently dx'd with lung Adenocarcinoma, COPD on home O2 @2L , HTN, HLD, ACS s/p myocardial infarction x 2, brought in post-RT treatment due to trouble breathing. The patient on Bipap. Noted to have progressive Hypernatremia. - Current Medication List Current Medications: Active Medications Acetaminophen (Tylenol -) 650 mg PO Q6H PRN PRN Reason: PAIN Albuterol Sulfate (Ventolin 0.083% Nebulizer Soln -) 1 amp NEB Q4H PRN PRN Reason: SHORT OF BREATH/WHEEZING Albuterol/Ipratropium (Duoneb -) 1 amp NEB RQ4H [facility] Last Admin: 08/04/18 12:02 Dose: 1 amp Alprazolam (Xanax -) 0.25 mg PO Q8H PRN PRN Reason: ANXIETY Last Admin: 08/03/18 21:46 Dose: 0.25 mg Budesonide/Formoterol Fumarate (Symbicort 80/4.5mcg -) 2 puff IH BID [facility] Last Admin: 08/04/18 09:46 Dose: 2 puff Diltiazem HCl (Cardizem -) 30 mg PO TID [facility] Last Admin: 08/04/18 06:36 Dose: 30 mg Gabapentin (Neurontin -) 100 mg PO DAILY [facility] Last Admin: 08/04/18 09:45 Dose: 100 mg Guaifenesin (Mucinex -) 600 mg PO BID [facility] Last Admin: 08/04/18 09:44 Dose: 600 mg Guaifenesin (Robitussin -) 10 ml PO Q6H PRN PRN Reason: COUGH Azithromycin (Zithromax 500mg Ivpb (Pre-Docked)) 500 mg in 250 mls @ 250 mls/ hr IVPB DAILY [facility] Last Admin: 08/04/18 09:44 Dose: 250 mls/hr Ceftriaxone Sodium 1 gm/ (Dextrose) 50 mls @ 100 mls/hr IVPB DAILY [facility] Last Admin: 08/04/18 09:45 Dose: 100 mls/hr Insulin Aspart (Novolog Vial Sliding Scale -) 1 vial SQ ACHS [facility]; Protocol Last Admin: 08/04/18 11:49 Dose: 6 units Lactobacillus Acidophilus (Bacid -) 1 tab PO DAILY [facility] Last Admin: 08/04/18 09:45 Dose: 1 tab Methylprednisolone Sodium Succinate (Solu-Medrol -) 40 mg IVPUSH Q6H-IV [facility] Last Admin: 08/04/18 09:44 Dose: 40 mg Metoprolol Tartrate (Lopressor Injection -) 5 mg IVPUSH Q4H PRN PRN Reason: HYPERTENSION Last Admin: 07/31/18 17:24 Dose: 5 mg Metoprolol Tartrate (Lopressor -) 25 mg PO BID [facility] Last Admin: 08/04/18 09:45 Dose: 25 mg Pantoprazole Sodium (Protonix Iv) 40 mg IVPUSH DAILY [facility] Last Admin: 08/04/18 09:45 Dose: 40 mg Potassium Chloride (K-Dur -) 20 meq PO DAILY [facility] Last Admin: 08/04/18 12:12 Dose: 20 meq Ranitidine HCl (Zantac -) 150 mg PO DAILY [facility] Last Admin: 08/04/18 09:45 Dose: 150 mg Rosuvastatin Calcium (Crestor -) 20 mg PO HS [facility] Last Admin: 08/03/18 21:46 Dose: 20 mg - Objective Vital Signs: Vital Signs Temperature 99.5 F 08/04/18 10:00 Pulse Rate 99 H 08/04/18 10:00 Respiratory Rate 26 H 08/04/18 10:00 Blood Pressure 138/54 L 08/04/18 10:00 O2 Sat by Pulse Oximetry (%) 96 08/04/18 12:22 Constitutional: Yes: Anxious, Moderate Distress, Pallor Eyes: Yes: Conjunctiva Clear HENT: Yes: Normocephalic Neck: Yes: Trachea Midline Cardiovascular: Yes: Tachycardia, S1, S2 Respiratory: Yes: Accessory Muscle Use, Diminished, On BiPap, Poor Air Entry, Rhonchi, Tachypnea Gastrointestinal: Yes: Normal Bowel Sounds, Soft Genitourinary: No: Bladder Distention, CVA Tenderness - Left, CVA Tenderness - Right Musculoskeletal: Yes: Muscle Weakness Neurological: Yes: Alert, Oriented Labs: CBC, BMP 08/04/18 06:40 08/04/18 06:40 INR, PTT INR 1.01 (0.83-1.09) 07/08/18 16:43 Problem List - Problems (1) Hypernatremia Code(s): E87.0 - HYPEROSMOLALITY AND HYPERNATREMIA (2) Adenocarcinoma, lung Code(s): C34.90 - MALIGNANT NEOPLASM OF UNSP PART OF UNSP BRONCHUS OR LUNG (3) Atrial fibrillation Code(s): I48.91 - UNSPECIFIED ATRIAL FIBRILLATION (4) Liver mass, right lobe Code(s): R16.0 - HEPATOMEGALY, NOT ELSEWHERE CLASSIFIED (5) Shortness of breath Code(s): R06.02 - SHORTNESS OF BREATH (6) Anxiety and depression Code(s): F41.9 - ANXIETY DISORDER, UNSPECIFIED; F32.9 - MAJOR DEPRESSIVE DISORDER, SINGLE EPISODE, UNSPECIFIED (7) Diastolic CHF Code(s): I50.30 - UNSPECIFIED DIASTOLIC (CONGESTIVE) HEART FAILURE (8) HTN (hypertension) Code(s): I10 - ESSENTIAL (PRIMARY) HYPERTENSION Assessment/Plan 82 yr old woman with recently diagnosed with Adenocarcinoma Lung, COPD on home O2 , HTN, HLD, ACS s/p MLasix for Myocardial infarction x 2, brought in post-RT treatment yesterday due to trouble breathing. She has been having increased sob, worse with exertion and cough.Patient had been getting RT. The patient has progressive Hypernatremia. Loop diuretics discontinued. The Serum Sodium is worse today. Will encourage oral free water. The dyspnea most likely due to lung disease. Plan: Will not give IV hydration in view of her generally unstable cardiac and hemodynamic situation. But encourage PO hydration. Will monitor the renal function. Detailed w/u not warranted at this point. Lili Choudhury MD
--- NOTE | 2018-08-04 13:12 | PN ---
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 - Current Medication List Current Medications: Active Medications Acetaminophen (Tylenol -) 650 mg PO Q6H PRN PRN Reason: PAIN Albuterol Sulfate (Ventolin 0.083% Nebulizer Soln -) 1 amp NEB Q4H PRN PRN Reason: SHORT OF BREATH/WHEEZING Albuterol/Ipratropium (Duoneb -) 1 amp NEB RQ4H [facility] Last Admin: 08/04/18 12:02 Dose: 1 amp Alprazolam (Xanax -) 0.25 mg PO Q8H PRN PRN Reason: ANXIETY Last Admin: 08/03/18 21:46 Dose: 0.25 mg Budesonide/Formoterol Fumarate (Symbicort 80/4.5mcg -) 2 puff IH BID [facility] Last Admin: 08/04/18 09:46 Dose: 2 puff Diltiazem HCl (Cardizem -) 30 mg PO TID [facility] Last Admin: 08/04/18 06:36 Dose: 30 mg Gabapentin (Neurontin -) 100 mg PO DAILY [facility] Last Admin: 08/04/18 09:45 Dose: 100 mg Guaifenesin (Mucinex -) 600 mg PO BID [facility] Last Admin: 08/04/18 09:44 Dose: 600 mg Guaifenesin (Robitussin -) 10 ml PO Q6H PRN PRN Reason: COUGH Azithromycin (Zithromax 500mg Ivpb (Pre-Docked)) 500 mg in 250 mls @ 250 mls/ hr IVPB DAILY [facility] Last Admin: 08/04/18 09:44 Dose: 250 mls/hr Ceftriaxone Sodium 1 gm/ (Dextrose) 50 mls @ 100 mls/hr IVPB DAILY [facility] Last Admin: 08/04/18 09:45 Dose: 100 mls/hr Insulin Aspart (Novolog Vial Sliding Scale -) 1 vial SQ ACHS [facility]; Protocol Last Admin: 08/04/18 11:49 Dose: 6 units Lactobacillus Acidophilus (Bacid -) 1 tab PO DAILY [facility] Last Admin: 08/04/18 09:45 Dose: 1 tab Methylprednisolone Sodium Succinate (Solu-Medrol -) 40 mg IVPUSH Q6H-IV [facility] Last Admin: 02/03/19 09:44 Dose: 40 mg Metoprolol Tartrate (Lopressor Injection -) 5 mg IVPUSH Q4H PRN PRN Reason: HYPERTENSION Last Admin: 07/31/18 17:24 Dose: 5 mg Metoprolol Tartrate (Lopressor -) 25 mg PO BID [facility] Last Admin: 08/04/18 09:45 Dose: 25 mg Pantoprazole Sodium (Protonix Iv) 40 mg IVPUSH DAILY [facility] Last Admin: 08/04/18 09:45 Dose: 40 mg Potassium Chloride (K-Dur -) 20 meq PO DAILY [facility] Last Admin: 08/04/18 12:12 Dose: 20 meq Ranitidine HCl (Zantac -) 150 mg PO DAILY [facility] Last Admin: 08/04/18 09:45 Dose: 150 mg Rosuvastatin Calcium (Crestor -) 20 mg PO HS [facility] Last Admin: 08/03/18 21:46 Dose: 20 mg - Objective Vital Signs: Vital Signs Temperature 99.5 F 08/04/18 10:00 Pulse Rate 99 H 08/04/18 10:00 Respiratory Rate 26 H 08/04/18 10:00 Blood Pressure 138/54 L 08/04/18 10:00 O2 Sat by Pulse Oximetry (%) 96 08/04/18 12:22 Constitutional: Yes: No Distress, Calm Neck: Yes: Supple Cardiovascular: Yes: Regular Rate and Rhythm Respiratory: Yes: Regular, Diminished, On Nasal O2 Gastrointestinal: Yes: Soft, Hypoactive Bowel Sounds Edema: No Labs: CBC, BMP 08/04/18 06:40 08/04/18 06:40 INR, PTT INR 1.01 (0.83-1.09) 07/08/18 16:43 - ....Imaging EKG: Report Reviewed (Tele: NSR) Problem List - Problems (1) Hypernatremia Code(s): E87.0 - HYPEROSMOLALITY AND HYPERNATREMIA Assessment/Plan The patient has progressive Hypernatremia. Loop diuretics discontinued. Encourage oral free water. - Problems (1) Elevated troponin I level Assessment/Plan: 0.02-->0.21-->0.19; normal CK EKG: PAF, periods of RVR. Pt likely has demand ischemia from exacerbation of COPD, diastolic CHF, CA, tachycardia. Given pt's advanced lung CA, would recommend conservative management of cardiac condition (she is on metoprolol, diltiazem, statin, ASA, Lovenox) Code(s): R74.8 - ABNORMAL LEVELS OF OTHER SERUM ENZYMES (2) Adenocarcinoma, lung Assessment/Plan: Advanced CA, with bone and liver metastases. F/u with hem/onc. Code(s): C34.90 - MALIGNANT NEOPLASM OF UNSP PART OF UNSP BRONCHUS OR LUNG (3) Shortness of breath Assessment/Plan: Deteriorating pulmonary status on BD, bipap as needed, IV steroids and empiric abx Pt continues to say she does not want to be intubated. She (and her grandson, present today) are aware she must make a decision as to what measures are to be taken should she become refractory to conventional treatment. Code(s): R06.02 - SHORTNESS OF BREATH (4) HTN (hypertension) Assessment/Plan: On metoprolol, diltiazem, and furosemide. Code(s): I10 - ESSENTIAL (PRIMARY) HYPERTENSION (5) Hyperlipidemia Assessment/Plan: on statin Code(s): E78.5 - HYPERLIPIDEMIA, UNSPECIFIED (6) Acute on chronic diastolic CHF (congestive heart failure) Assessment/Plan: On metoprolol, diltiazem, now off Furosemide due to worsening hypernatremia f/u BUn/Cr, electrolytes, daily weight, Is and Os. Code(s): I50.33 - ACUTE ON CHRONIC DIASTOLIC (CONGESTIVE) HEART FAILURE (7) Thrombocytopenia Assessment/Plan: Developed during this admission. Off ASA; platelets remain low (now in the lower 50s). Code(s): D69.6 - THROMBOCYTOPENIA, UNSPECIFIED (8) Leukocytosis Assessment/Plan: WBCs reducing; now 10.3; afebrile. F/u with hem/onc. Code(s): D72.829 - ELEVATED WHITE BLOOD CELL COUNT, UNSPECIFIED (9) Atrial fibrillation Assessment/Plan: On metoprolol 25 bid and diltiazem 30 tid for HR control. On Lovenox for anticoagulation; platelets are being folllowed closely; as noted , Lovenox may have to be stopped if they drop below 50. Code(s): I48.91 - UNSPECIFIED ATRIAL FIBRILLATION
[2018-08-04 13:16] LABS: ANISOCYTOSIS 1+; MACROCYTOSIS 0; OVALOCYTE 1+; PLATELET ESTIMATE DECREASED
--- NOTE | 2018-08-04 13:37 | PN ---
GI Progress Note Subjective: covering for Dr Porter 82 y/o F with metastatic lung cancer,respiratory distress, COPD, CHF was noted to have rectal bleeding associated with anemia. There were no reports of Chest pain, and loss of consciousness.Lovenox was discontinued. No further bleeding episodes noted. - Objective Vital Signs: Vital Signs Temperature 99.5 F 08/04/18 10:00 Pulse Rate 99 H 08/04/18 10:00 Respiratory Rate 26 H 08/04/18 10:00 Blood Pressure 138/54 L 08/04/18 10:00 O2 Sat by Pulse Oximetry (%) 96 08/04/18 12:22 Constitutional: Well Nourished Eyes: Yes: Conjunctiva Clear HENT: Yes: Atraumatic Neck: Yes: Supple Cardiovascular: Yes: Regular Rate and Rhythm Respiratory: Yes: Diminished (-bilaterally) ...Auscultate: Yes: Hypoactive Bowel Sounds ...Palpate: Yes: Soft. No: Firm/Rigid, Guarding, Hepatomegaly, Mass, Pulsatile Mass, Splenomegaly, Tenderness, Tenderness, Epigastium ...Percussion: Yes: Tympanitic ...Rectal Exam: Yes: Other (normal sphincteric tone, no hemorrhoids, no masses, yellow stool) Labs: CBC, BMP 08/04/18 06:40 08/04/18 06:40 INR, PTT INR 1.01 (0.83-1.09) 07/08/18 16:43 Problem List - Problems (1) Rectal bleeding Assessment/Plan: --resolved R> patients rectal bleeding resolved off anticoagulation continue supportive management She is a poor candidate for gi procedure at this time. Dr Porter will follow the patient tomorrow Code(s): K62.5 - HEMORRHAGE OF ANUS AND RECTUM
--- NOTE | 2018-08-04 14:42 | PN ---
Progress Note (short form) - Note Progress Note: Patient seen in follow up. No new complaints - feeling 'lousy'. No significant events overnight. Currently off BIPAP while trying to eat lunch. Inpatient Meds reviewed. Current Medications Generic Name Dose Route Start Last Admin Trade Name Freq PRN Reason Stop Dose Admin Acetaminophen 650 mg 08/03/18 08:32 Tylenol - PO Q6H PRN PAIN Albuterol Sulfate 1 amp 08/01/18 12:27 Ventolin 0.083% Nebulizer Soln - NEB Q4H PRN SHORT OF BREATH/WHEEZING Albuterol/Ipratropium 1 amp 08/01/18 16:00 08/04/18 12:02 Duoneb - NEB 1 amp RQ4H JOHN Administration Alprazolam 0.25 mg 08/03/18 08:32 08/03/18 21:46 Xanax - PO 0.25 mg Q8H PRN Administration ANXIETY Budesonide/Formoterol Fumarate 2 puff 08/03/18 10:00 08/04/18 09:46 Symbicort 80/4.5mcg - IH 2 puff BID JOHN Administration Diltiazem HCl 30 mg 07/31/18 00:45 08/04/18 14:31 Cardizem - PO 30 mg TID JOHN Administration Gabapentin 100 mg 08/03/18 10:00 08/04/18 09:45 Neurontin - PO 100 mg DAILY JOHN Administration Guaifenesin 600 mg 07/28/18 10:00 08/04/18 09:44 Mucinex - PO 600 mg BID JOHN Administration Guaifenesin 10 ml 08/03/18 08:32 Robitussin - PO Q6H PRN COUGH Azithromycin 500 mg in 250 mls @ 250 mls/hr 07/29/18 10:00 08/04/18 09:44 Zithromax 500mg Ivpb (Pre-Docked) IVPB 250 mls/hr DAILY JOHN Administration Ceftriaxone Sodium 1 gm/ 50 mls @ 100 mls/hr 07/29/18 10:00 08/04/18 09:45 Dextrose IVPB 100 mls/hr DAILY JOHN Administration Insulin Aspart 1 vial 07/30/18 16:30 08/04/18 11:49 Novolog Vial Sliding Scale - SQ 6 units ACHS JOHN Administration Protocol Lactobacillus Acidophilus 1 tab 07/29/18 10:00 08/04/18 09:45 Bacid - PO 1 tab DAILY JOHN Administration Methylprednisolone Sodium Succinate 40 mg 08/03/18 09:00 08/04/18 14:30 Solu-Medrol - IVPUSH 40 mg Q6H-IV JOHN Administration Metoprolol Tartrate 5 mg 07/30/18 22:52 07/31/18 17:24 Lopressor Injection - IVPUSH 5 mg Q4H PRN Administration HYPERTENSION Metoprolol Tartrate 25 mg 08/03/18 10:00 08/04/18 09:45 Lopressor - PO 25 mg BID JOHN Administration Pantoprazole Sodium 40 mg 08/03/18 10:00 08/04/18 09:45 Protonix Iv IVPUSH 40 mg DAILY JOHN Administration Potassium Chloride 20 meq 08/04/18 12:00 08/04/18 12:12 K-Dur - PO 20 meq DAILY JOHN Administration Ranitidine HCl 150 mg 08/03/18 10:00 08/04/18 09:45 Zantac - PO 150 mg DAILY JOHN Administration Rosuvastatin Calcium 20 mg 08/03/18 22:00 08/03/18 21:46 Crestor - PO 20 mg HS JOHN Administration On Examination: General: Appears uncomfortable, sitting up in bed. Extremities: No pallor or icterus. No pedal edema. No palpable lymphadenopathy. CVS: S1, S2, regular, no gallop or murmur. Chest: tachypneic, pursing lips, accessory muscles use etc - (Nasal canula) Abdomen: Non-distended, non-tender, no palpable organomegaly. Neuro: Alert, oriented, non-focal. Labs: CBC, BMP 08/04/18 06:40 08/04/18 06:40 Assessment. COPD on home O2, CAD, dCHF, and recently dx'd lung adenocarcinoma admitted with SOB after 1st RT treatment. Being treated for COPD exacerbation with IV steroids, nebs. Has had worsening chest pain. Ruled out for PE. Stable thrombocytopenia - undetermined etiology - Lovenox held as a precaution - observe. Plan to resume RT when acute issues resolved
[2018-08-04] MEDS: ALPRAZolam 0.25 MG TABLET PO PRN (21:33)
[2018-08-04] MEDS: ROSUVASTATIN CA 20 MG TABLET (FP) PO SCH (21:33)
[2018-08-05] MEDS: methylPREDNISolone NA SUCC 40 MG/1 ML VIAL IVPUSH SCH ×4 (03:00→21:06)
[2018-08-05] MEDS: INSULIN SLIDING SCALE (NOVOLOG) 1 VIAL SQ SCH ×4 (06:19→21:39)
[2018-08-05] MEDS: dilTIAZem HCL 30 MG TABLET (FP) PO SCH ×3 (06:19→21:36)
[2018-08-05 06:35] LABS: BASO % 0.5 % (0-2.0); HEMATOCRIT 34.3 % (32.4-45.2); HEMOGLOBIN 11.9 GM/dL (10.7-15.3); LYMPH % 0.8 % (8-40); MCH 30.2 pg (25.7-33.7); MCHC 34.6 g/dl (32.0-36.0); MEAN CELL VOLUME 87.2 fl (80-96); MEAN PLT VOLUME 10.8 fl (7.5-11.1); MONO % 1.6 % (3.8-10.2); NEUT % 97.1 % (42.8-82.8); PLATELET COUNT 57 K/MM3 (134-434); RBC 3.93 M/mm3 (3.60-5.2); RDW 15.8 % (11.6-15.6); WHITE BLOOD COUNT 13.1 K/mm3 (4.0-10.0)
[2018-08-05 07:24] LABS: ALBUMIN 3.1 g/dl (3.4-5.0); ANION GAP 8 MMOL/L (8-16); BLOOD UREA NITROGEN 59 mg/dL (7-18); CALCIUM 9.6 mg/dL (8.5-10.1); CHLORIDE 109 mmol/L (98-107); CO2 38 mmol/L (21-32); CREATININE 0.7 mg/dL (0.55-1.3); GLUCOSE,RANDOM 141 mg/dL (74-106); POTASSIUM 3.4 mmol/L (3.5-5.1); SODIUM 154 mmol/L (136-145); TOT PROT 5.4 g/dl (6.4-8.2)
[2018-08-05 07:25] LABS: ALK PHOS 72 U/L (45-117); BILIRUBIN,TOTAL 1.4 mg/dL (0.2-1); SGOT/AST 37 U/L (15-37); SGPT/ALT 76 U/L (13-61)
[2018-08-05] MEDS: ALBUTEROL SO4 2.5/IPRATROPIUM 0.5 INH SOL 3 ML VIAL.NEB. NEB SCH ×5 (08:24→23:51)
--- NOTE | 2018-08-05 09:21 | PN ---
Progress Note, Physician Chief Complaint: chest tightness on/off, coughs on/off, feels very weak generally; met with her grandson and her niece Ildefonso from [place] yesterday - Current Medication List Current Medications: Active Medications Acetaminophen (Tylenol -) 650 mg PO Q6H PRN PRN Reason: PAIN Albuterol Sulfate (Ventolin 0.083% Nebulizer Soln -) 1 amp NEB Q4H PRN PRN Reason: SHORT OF BREATH/WHEEZING Albuterol/Ipratropium (Duoneb -) 1 amp NEB RQ4H [facility] Last Admin: 08/05/18 08:24 Dose: 1 amp Alprazolam (Xanax -) 0.25 mg PO Q8H PRN PRN Reason: ANXIETY Last Admin: 08/04/18 21:33 Dose: 0.25 mg Budesonide/Formoterol Fumarate (Symbicort 80/4.5mcg -) 2 puff IH BID [facility] Last Admin: 08/04/18 21:34 Dose: 2 puff Diltiazem HCl (Cardizem -) 30 mg PO TID [facility] Last Admin: 08/05/18 06:19 Dose: 30 mg Gabapentin (Neurontin -) 100 mg PO DAILY [facility] Last Admin: 08/04/18 09:45 Dose: 100 mg Guaifenesin (Mucinex -) 600 mg PO BID [facility] Last Admin: 08/04/18 21:33 Dose: 600 mg Guaifenesin (Robitussin -) 10 ml PO Q6H PRN PRN Reason: COUGH Azithromycin (Zithromax 500mg Ivpb (Pre-Docked)) 500 mg in 250 mls @ 250 mls/ hr IVPB DAILY [facility] Last Admin: 08/04/18 09:44 Dose: 250 mls/hr Ceftriaxone Sodium 1 gm/ (Dextrose) 50 mls @ 100 mls/hr IVPB DAILY [facility] Last Admin: 08/04/18 09:45 Dose: 100 mls/hr Sodium Chloride (1/2 Normal Saline) 1,000 mls @ 42 mls/hr IV ASDIR [facility] Insulin Aspart (Novolog Vial Sliding Scale -) 1 vial SQ ACHS [facility]; Protocol Last Admin: 08/05/18 06:19 Dose: Not Given Lactobacillus Acidophilus (Bacid -) 1 tab PO DAILY [facility] Last Admin: 08/04/18 09:45 Dose: 1 tab Methylprednisolone Sodium Succinate (Solu-Medrol -) 40 mg IVPUSH Q6H-IV [facility] Last Admin: 08/05/18 03:00 Dose: 40 mg Metoprolol Tartrate (Lopressor Injection -) 5 mg IVPUSH Q4H PRN PRN Reason: HYPERTENSION Last Admin: 07/31/18 17:24 Dose: 5 mg Metoprolol Tartrate (Lopressor -) 25 mg PO BID [facility] Last Admin: 08/04/18 21:33 Dose: 25 mg Pantoprazole Sodium (Protonix Iv) 40 mg IVPUSH DAILY [facility] Last Admin: 08/04/18 09:45 Dose: 40 mg Potassium Chloride (K-Dur -) 20 meq PO DAILY [facility] Last Admin: 08/04/18 12:12 Dose: 20 meq Ranitidine HCl (Zantac -) 150 mg PO DAILY [facility] Last Admin: 08/04/18 09:45 Dose: 150 mg Rosuvastatin Calcium (Crestor -) 20 mg PO HS [facility] Last Admin: 08/04/18 21:33 Dose: 20 mg - Objective Vital Signs: Vital Signs Temperature 96.6 F L 08/05/18 02:00 Pulse Rate 80 08/05/18 06:00 Respiratory Rate 20 08/05/18 06:00 Blood Pressure 154/68 08/05/18 06:00 O2 Sat by Pulse Oximetry (%) 96 08/05/18 08:24 Constitutional: Yes: No Distress, Calm Eyes: Yes: Conjunctiva Clear HENT: Yes: Atraumatic Neck: Yes: Supple Cardiovascular: Yes: Regular Rate and Rhythm, Tachycardia Respiratory: Yes: Rales, Wheezes Genitourinary: No: Hematuria Musculoskeletal: No: Joint Stiffness, Joint Swelling Extremities: No: Cold, Cool, Cyanosis Edema: No Integumentary: Yes: Petechiae (scattered). No: Rash, Venous Stasis Changes Neurological: Yes: WNL, Alert, Oriented ...Motor Strength: WNL Psychiatric: Yes: WNL, Alert, Oriented. No: Agitated, Suicidal Ideation Labs: CBC, BMP 08/05/18 05:30 08/05/18 05:30 INR, PTT INR 1.01 (0.83-1.09) 07/08/18 16:43 - ....Imaging Other: Report Reviewed Assessment/Plan The patient is an 82 year old female with a PMH of COPD (on 2L), Stage 3a NSCC ( currently on radiation), CAD s/p AK (s/p cardiac stent x3), HTN, HLD \admitted with acute onset of shortness of breath, acute on chronic COPD exac and bronchitis, new L sided PNA and metastatic ds lung, liver bones; borderline + troponins h/o ASHD stent, high BNP h/o CHF low EF, s/p hemoptysis and low GIB; new onset rapid AFib, low Platelets and anemia - s/p 2 U PRBC and sq lovenox stopped. GI eval pending; HyperNatremia. f/u labs and CXR iv steroids, nebs, O2 and iv antibiotics IV PPI; IV Half saline BGM, sq insulin prn PULM, Cardiology f/u HR control; ONC f/u falls PFX, gastric, DVT aspiration PFX; prognosis guarded might need ventilatory support if respiratory status worsens d /w pt advanced directives but she does not want to think about it now. d/w pt and staff d/w pt's grandson Ti
[2018-08-05] MEDS ORDERED: SODIUM CHLORIDE 0.45% 1,000 ML IV SCH (09:30)
[2018-08-05 10:09] LABS: ANISOCYTOSIS 1+; MACROCYTOSIS 0; OVALOCYTE 1+; PLATELET ESTIMATE DECREASED
[2018-08-05] MEDS ORDERED: DEXTROSE 5%-WATER - 50 ML IVPB ONE (10:47)
[2018-08-05] MEDS ORDERED: cefTRIAXone SODIUM 1 GM VIAL ONE (10:47)
[2018-08-05] MEDS: PANTOPRAZOLE SODIUM 40 MG VIAL IVPUSH SCH (10:53)
[2018-08-05] MEDS: LACTOBACILLUS ACIDOPHILUS 1 TABLET PO SCH (10:53)
[2018-08-05] MEDS: METOPROLOL TARTRATE 25 MG TABLET (FP) PO SCH ×2 (10:53→21:36)
[2018-08-05] MEDS: RANITIDINE HCL 150 MG TABLET (FP) PO SCH (10:53)
[2018-08-05] MEDS: CEFTRIAXONE 1 GM in DEXTROSE 5%-WATER - 50 ML IVPB SCH (10:53)
[2018-08-05] MEDS: POTASSIUM CHLORIDE TABS 20 MEQ TABLET.ER (FP) PO SCH (10:53)
[2018-08-05] MEDS: AZITHROMYCIN IVPB 500 MG/250 ML BAG IVPB SCH (10:53)
[2018-08-05] MEDS: guaiFENesin 600 MG TABLET.ER (FP) PO SCH ×2 (10:53→21:36)
[2018-08-05] MEDS: GABAPENTIN 100 MG CAPSULE (FP) PO SCH (10:54)
[2018-08-05] MEDS: BUDESONIDE/FORMETEROL FUMARATE 80/4.5 mcg INHALER IH SCH ×2 (11:08→21:39)
--- NOTE | 2018-08-05 11:54 | PN ---
Progress Note, Physician History of Present Illness: pulmonary alert,dyspneic on bipap. - Current Medication List Current Medications: Active Medications Acetaminophen (Tylenol -) 650 mg PO Q6H PRN PRN Reason: PAIN Albuterol Sulfate (Ventolin 0.083% Nebulizer Soln -) 1 amp NEB Q4H PRN PRN Reason: SHORT OF BREATH/WHEEZING Albuterol/Ipratropium (Duoneb -) 1 amp NEB RQ4H [facility] Last Admin: 08/05/18 08:24 Dose: 1 amp Alprazolam (Xanax -) 0.25 mg PO Q8H PRN PRN Reason: ANXIETY Last Admin: 08/04/18 21:33 Dose: 0.25 mg Budesonide/Formoterol Fumarate (Symbicort 80/4.5mcg -) 2 puff IH BID [facility] Last Admin: 08/05/18 11:08 Dose: 2 puff Diltiazem HCl (Cardizem -) 30 mg PO TID [facility] Last Admin: 08/05/18 06:19 Dose: 30 mg Gabapentin (Neurontin -) 100 mg PO DAILY [facility] Last Admin: 08/05/18 10:54 Dose: 100 mg Guaifenesin (Mucinex -) 600 mg PO BID [facility] Last Admin: 08/05/18 10:53 Dose: 600 mg Guaifenesin (Robitussin -) 10 ml PO Q6H PRN PRN Reason: COUGH Azithromycin (Zithromax 500mg Ivpb (Pre-Docked)) 500 mg in 250 mls @ 250 mls/ hr IVPB DAILY [facility] Last Admin: 08/05/18 10:53 Dose: 250 mls/hr Ceftriaxone Sodium 1 gm/ (Dextrose) 50 mls @ 100 mls/hr IVPB DAILY [facility] Last Admin: 08/05/18 10:53 Dose: 100 mls/hr Sodium Chloride (1/2 Normal Saline) 1,000 mls @ 42 mls/hr IV ASDIR [facility] Last Admin: 08/05/18 11:07 Dose: 42 mls/hr Insulin Aspart (Novolog Vial Sliding Scale -) 1 vial SQ ACHS [facility]; Protocol Last Admin: 08/05/18 11:48 Dose: 6 units Lactobacillus Acidophilus (Bacid -) 1 tab PO DAILY [facility] Last Admin: 08/05/18 10:53 Dose: 1 tab Methylprednisolone Sodium Succinate (Solu-Medrol -) 40 mg IVPUSH Q6H-IV [facility] Last Admin: 08/05/18 10:53 Dose: 40 mg Metoprolol Tartrate (Lopressor Injection -) 5 mg IVPUSH Q4H PRN PRN Reason: HYPERTENSION Last Admin: 07/31/18 17:24 Dose: 5 mg Metoprolol Tartrate (Lopressor -) 25 mg PO BID [facility] Last Admin: 08/05/18 10:53 Dose: 25 mg Pantoprazole Sodium (Protonix Iv) 40 mg IVPUSH DAILY [facility] Last Admin: 08/05/18 10:53 Dose: 40 mg Potassium Chloride (K-Dur -) 20 meq PO DAILY [facility] Last Admin: 08/05/18 10:53 Dose: 20 meq Ranitidine HCl (Zantac -) 150 mg PO DAILY [facility] Last Admin: 08/05/18 10:53 Dose: 150 mg Rosuvastatin Calcium (Crestor -) 20 mg PO HS [facility] Last Admin: 08/04/18 21:33 Dose: 20 mg - Objective Vital Signs: Vital Signs Temperature 97.1 F L 08/05/18 09:40 Pulse Rate 85 08/05/18 09:40 Respiratory Rate 26 H 08/05/18 09:40 Blood Pressure 143/73 08/05/18 09:40 O2 Sat by Pulse Oximetry (%) 96 08/05/18 08:24 Constitutional: Yes: Mild Distress, Thin Eyes: Yes: WNL HENT: Yes: WNL Neck: Yes: WNL Cardiovascular: Yes: Regular Rate and Rhythm, Pulse Irregular, S1, S2 Respiratory: Yes: Rales (bibasilar crackles) Gastrointestinal: Yes: Normal Bowel Sounds, Soft Extremities: Yes: WNL, Amputation Edema: No Labs: CBC, BMP 08/05/18 05:30 08/05/18 05:30 INR, PTT INR 1.01 (0.83-1.09) 07/08/18 16:43 Assessment/Plan Problem List - Problems (1) Adenocarcinoma, lung Code(s): C34.90 - MALIGNANT NEOPLASM OF UNSP PART OF UNSP BRONCHUS OR LUNG (2) ASHD (arteriosclerotic heart disease) Code(s): I25.10 - ATHSCL HEART DISEASE OF [place] CORONARY ARTERY W/O ANG PCTRS (3) Anxiety and depression Code(s): F41.9 - ANXIETY DISORDER, UNSPECIFIED; F32.9 - MAJOR DEPRESSIVE DISORDER, SINGLE EPISODE, UNSPECIFIED (4) COPD (chronic obstructive pulmonary disease) Code(s): J44.9 - CHRONIC OBSTRUCTIVE PULMONARY DISEASE, UNSPECIFIED Qualifiers: COPD type: unspecified COPD Qualified Code(s): J44.9 - Chronic obstructive pulmonary disease, unspecified (5) COPD exacerbation Code(s): J44.1 - CHRONIC OBSTRUCTIVE PULMONARY DISEASE W (ACUTE) EXACERBATION (6) Cough Code(s): R05 - COUGH (7) Diastolic CHF Code(s): I50.30 - UNSPECIFIED DIASTOLIC (CONGESTIVE) HEART FAILURE (8) HTN (hypertension) Code(s): I10 - ESSENTIAL (PRIMARY) HYPERTENSION (9) Hyperlipidemia Code(s): E78.5 - HYPERLIPIDEMIA, UNSPECIFIED (10) Hypothyroid Code(s): E03.9 - HYPOTHYROIDISM, UNSPECIFIED (11) Shortness of breath Code(s): R06.02 - SHORTNESS OF BREATH A/P Acute COPD Exacerbation s/p RT session NSCLC - Adenocarcinoma mets to rib/liver LV Diastolic Dysfunction AFIB HTN Hypothyroidism Hyperlipidemia - medrol same dose - inhaled bronchodilators - on empiric antibiotics - rehab/PT - DVT prophylaxis - continue bipap ,O2 - AC DR CARDOSO
--- NOTE | 2018-08-05 13:40 | PN ---
Progress Note, Physician History of Present Illness: The patient is an 82 year old white female with a PMH of COPD (on 2L), Stage 3a NSCC lung cancer (currently on radiation), CAD s/p NE (s/p cardiac stent x3), HTN, HLD was BIBEMS for acute onset of shortness of breath. Patient was completing her first radiation treatment today when she suddenly became short of breath. Denies chest pain, lightheadedness, nausea, diaphoresis. Grandson @ bedside assists in history, notes patient has been taking her Albuterol inhaler multiple times daily. Recent medication addition of Symbicort to her daily regimen. History limited as patient tachycardic, tachypneic @ presentation. NKDA Surgical: Cardiac Stent x3, lung biopsy PMD: Dr. Mary Beth Stein Cardiology: Dr. Bah Pulmonology: Dr. Kern/Dr. Velazquez - Current Medication List Current Medications: Active Medications Acetaminophen (Tylenol -) 650 mg PO Q6H PRN PRN Reason: PAIN Albuterol Sulfate (Ventolin 0.083% Nebulizer Soln -) 1 amp NEB Q4H PRN PRN Reason: SHORT OF BREATH/WHEEZING Albuterol/Ipratropium (Duoneb -) 1 amp NEB RQ4H [facility] Last Admin: 08/05/18 08:24 Dose: 1 amp Alprazolam (Xanax -) 0.25 mg PO Q8H PRN PRN Reason: ANXIETY Last Admin: 08/04/18 21:33 Dose: 0.25 mg Budesonide/Formoterol Fumarate (Symbicort 80/4.5mcg -) 2 puff IH BID [facility] Last Admin: 08/05/18 11:08 Dose: 2 puff Diltiazem HCl (Cardizem -) 30 mg PO TID [facility] Last Admin: 08/05/18 06:19 Dose: 30 mg Gabapentin (Neurontin -) 100 mg PO DAILY [facility] Last Admin: 08/05/18 10:54 Dose: 100 mg Guaifenesin (Mucinex -) 600 mg PO BID [facility] Last Admin: 08/05/18 10:53 Dose: 600 mg Guaifenesin (Robitussin -) 10 ml PO Q6H PRN PRN Reason: COUGH Azithromycin (Zithromax 500mg Ivpb (Pre-Docked)) 500 mg in 250 mls @ 250 mls/ hr IVPB DAILY [facility] Last Admin: 08/05/18 10:53 Dose: 250 mls/hr Ceftriaxone Sodium 1 gm/ (Dextrose) 50 mls @ 100 mls/hr IVPB DAILY [facility] Last Admin: 08/05/18 10:53 Dose: 100 mls/hr Dextrose (D5w -) 1,000 mls @ 50 mls/hr IV .[id number] [facility] Insulin Aspart (Novolog Vial Sliding Scale -) 1 vial SQ ACHS [facility]; Protocol Last Admin: 08/05/18 11:48 Dose: 6 units Lactobacillus Acidophilus (Bacid -) 1 tab PO DAILY [facility] Last Admin: 08/05/18 10:53 Dose: 1 tab Methylprednisolone Sodium Succinate (Solu-Medrol -) 40 mg IVPUSH Q6H-IV [facility] Last Admin: 08/05/18 10:53 Dose: 40 mg Metoprolol Tartrate (Lopressor Injection -) 5 mg IVPUSH Q4H PRN PRN Reason: HYPERTENSION Last Admin: 07/31/18 17:24 Dose: 5 mg Metoprolol Tartrate (Lopressor -) 25 mg PO BID [facility] Last Admin: 08/05/18 10:53 Dose: 25 mg Pantoprazole Sodium (Protonix Iv) 40 mg IVPUSH DAILY [facility] Last Admin: 08/05/18 10:53 Dose: 40 mg Potassium Chloride (K-Dur -) 20 meq PO DAILY [facility] Last Admin: 08/05/18 10:53 Dose: 20 meq Ranitidine HCl (Zantac -) 150 mg PO DAILY [facility] Last Admin: 08/05/18 10:53 Dose: 150 mg Rosuvastatin Calcium (Crestor -) 20 mg PO HS [facility] Last Admin: 08/04/18 21:33 Dose: 20 mg - Objective Vital Signs: Vital Signs Temperature 97.1 F L 08/05/18 09:40 Pulse Rate 85 08/05/18 09:40 Respiratory Rate 26 H 08/05/18 09:40 Blood Pressure 143/73 08/05/18 09:40 O2 Sat by Pulse Oximetry (%) 96 08/05/18 08:24 Eyes: Yes: WNL, Conjunctiva Clear, EOM Intact HENT: Yes: WNL, Atraumatic, Normocephalic Neck: Yes: WNL, Supple, Trachea Midline Cardiovascular: Yes: WNL, Regular Rate and Rhythm Respiratory: Yes: Diminished, On BiPap Gastrointestinal: Yes: WNL, Normal Bowel Sounds Genitourinary: Yes: WNL Musculoskeletal: Yes: WNL Extremities: Yes: WNL Edema: No Integumentary: Yes: WNL Neurological: Yes: WNL, Alert, Oriented ...Motor Strength: WNL Psychiatric: Yes: WNL Labs: CBC, BMP 08/05/18 05:30 08/05/18 05:30 INR, PTT INR 1.01 (0.83-1.09) 07/08/18 16:43 Assessment/Plan - Problems (1) Elevated troponin I level Assessment/Plan: 0.02-->0.21-->0.19; normal CK EKG: PAF, periods of RVR. Pt likely has demand ischemia from exacerbation of COPD, diastolic CHF, CA, tachycardia. Given pt's advanced lung CA, would recommend conservative management of cardiac condition (she is on metoprolol, diltiazem, statin, ASA, Lovenox) Code(s): R74.8 - ABNORMAL LEVELS OF OTHER SERUM ENZYMES (2) Adenocarcinoma, lung Assessment/Plan: Advanced CA, with bone and liver metastases. F/u with hem/onc. Code(s): C34.90 - MALIGNANT NEOPLASM OF UNSP PART OF UNSP BRONCHUS OR LUNG (3) Shortness of breath Assessment/Plan: Deteriorating pulmonary status on BD, bipap as needed, IV steroids and empiric abx Pt continues to say she does not want to be intubated. She (and her grandson, present today) are aware she must make a decision as to what measures are to be taken should she become refractory to conventional treatment. Code(s): R06.02 - SHORTNESS OF BREATH (4) HTN (hypertension) Assessment/Plan: On metoprolol, diltiazem, and furosemide. Code(s): I10 - ESSENTIAL (PRIMARY) HYPERTENSION (5) Hyperlipidemia Assessment/Plan: on statin Code(s): E78.5 - HYPERLIPIDEMIA, UNSPECIFIED (6) Acute on chronic diastolic CHF (congestive heart failure) Assessment/Plan: On metoprolol, diltiazem, now off Furosemide due to worsening hypernatremia f/u BUn/Cr, electrolytes, daily weight, Is and Os. Code(s): I50.33 - ACUTE ON CHRONIC DIASTOLIC (CONGESTIVE) HEART FAILURE (7) Thrombocytopenia Assessment/Plan: Developed during this admission. Off ASA; platelets remain low (now in the lower 50s). Code(s): D69.6 - THROMBOCYTOPENIA, UNSPECIFIED (8) Leukocytosis Assessment/Plan: WBCs reducing; now 10.3; afebrile. F/u with hem/onc. Code(s): D72.829 - ELEVATED WHITE BLOOD CELL COUNT, UNSPECIFIED (9) Atrial fibrillation Assessment/Plan: On metoprolol 25 bid and diltiazem 30 tid for HR control. On Lovenox for anticoagulation; platelets are being folllowed closely; as noted , Lovenox may have to be stopped if they drop below 50. Code(s): I48.91 - UNSPECIFIED ATRIAL FIBRILLATION
[2018-08-05] MEDS: DEXTROSE 5%-WATER - 1,000 ML IV SCH (14:28)
--- NOTE | 2018-08-05 17:03 | PN ---
Progress Note (short form) - Note Progress Note: Renal follow up for Hypernatremia Pt seen and examined at the bedside awake and alert on facemask O2 grandson at the bedside on IVF Vital Signs Temperature 97.1 F L 08/05/18 09:40 Pulse Rate 85 08/05/18 09:40 Respiratory Rate 26 H 08/05/18 09:40 Blood Pressure 143/73 08/05/18 09:40 O2 Sat by Pulse Oximetry (%) 96 08/05/18 13:52 Intake & Output 08/02/18 08/03/18 08/04/18 08/05/18 23:59 23:59 23:59 23:59 Intake Total 047 875 0921 1537 Balance 949 213 9105 1537 NAD awake and alert Dec BS no Le edema CBC, BMP 08/05/18 05:30 08/05/18 05:30 Current Medications Acetaminophen (Tylenol -) 650 mg PO Q6H PRN PRN Reason: PAIN Albuterol Sulfate (Ventolin 0.083% Nebulizer Soln -) 1 amp NEB Q4H PRN PRN Reason: SHORT OF BREATH/WHEEZING Albuterol/Ipratropium (Duoneb -) 1 amp NEB RQ4H [facility] Last Admin: 08/05/18 11:50 Dose: 1 amp Alprazolam (Xanax -) 0.25 mg PO Q8H PRN PRN Reason: ANXIETY Last Admin: 08/04/18 21:33 Dose: 0.25 mg Budesonide/Formoterol Fumarate (Symbicort 80/4.5mcg -) 2 puff IH BID [facility] Last Admin: 08/05/18 11:08 Dose: 2 puff Diltiazem HCl (Cardizem -) 30 mg PO TID [facility] Last Admin: 08/05/18 14:28 Dose: 30 mg Gabapentin (Neurontin -) 100 mg PO DAILY [facility] Last Admin: 08/05/18 10:54 Dose: 100 mg Guaifenesin (Mucinex -) 600 mg PO BID [facility] Last Admin: 08/05/18 10:53 Dose: 600 mg Guaifenesin (Robitussin -) 10 ml PO Q6H PRN PRN Reason: COUGH Azithromycin (Zithromax 500mg Ivpb (Pre-Docked)) 500 mg in 250 mls @ 250 mls/ hr IVPB DAILY [facility] Last Admin: 08/05/18 10:53 Dose: 250 mls/hr Ceftriaxone Sodium 1 gm/ (Dextrose) 50 mls @ 100 mls/hr IVPB DAILY [facility] Last Admin: 08/05/18 10:53 Dose: 100 mls/hr Dextrose (D5w -) 1,000 mls @ 50 mls/hr IV ASDIR [facility] Last Admin: 08/05/18 14:28 Dose: 50 mls/hr Insulin Aspart (Novolog Vial Sliding Scale -) 1 vial SQ ACHS [facility]; Protocol Last Admin: 08/05/18 11:48 Dose: 6 units Lactobacillus Acidophilus (Bacid -) 1 tab PO DAILY [facility] Last Admin: 08/05/18 10:53 Dose: 1 tab Methylprednisolone Sodium Succinate (Solu-Medrol -) 40 mg IVPUSH Q6H-IV [facility] Last Admin: 08/05/18 14:28 Dose: 40 mg Metoprolol Tartrate (Lopressor Injection -) 5 mg IVPUSH Q4H PRN PRN Reason: HYPERTENSION Last Admin: 07/31/18 17:24 Dose: 5 mg Metoprolol Tartrate (Lopressor -) 25 mg PO BID [facility] Last Admin: 08/05/18 10:53 Dose: 25 mg Pantoprazole Sodium (Protonix Iv) 40 mg IVPUSH DAILY [facility] Last Admin: 08/05/18 10:53 Dose: 40 mg Potassium Chloride (K-Dur -) 20 meq PO DAILY [facility] Last Admin: 08/05/18 10:53 Dose: 20 meq Ranitidine HCl (Zantac -) 150 mg PO DAILY [facility] Last Admin: 08/05/18 10:53 Dose: 150 mg Rosuvastatin Calcium (Crestor -) 20 mg PO HS [facility] Last Admin: 08/04/18 21:33 Dose: 20 mg 82 yr old female with recently dx'd with lung adenocarcinoma, COPD on home O2 @ 2L, HTN, HLD, ACS s/p myocardial infarction x 2, brought in post-RT treatment due to trouble breathing with respiraotory failure and progressive hypernatremia #Hypernatremia (water deficit ~3L) #Hypoxia #Hypokalemia #PNA #COPD #Adenocarcinoma of the Lung Started on D5W at 50cc per hour PRN lasix if pt has progressive congestion Trend serum Na daily continue supplemental O2 Stan Harrison DO
[2018-08-05] MEDS: ALPRAZolam 0.25 MG TABLET PO PRN (21:36)
[2018-08-05] MEDS: ROSUVASTATIN CA 20 MG TABLET (FP) PO SCH (21:36)
[2018-08-06] MEDS: methylPREDNISolone NA SUCC 40 MG/1 ML VIAL IVPUSH SCH ×4 (02:43→21:17)
[2018-08-06] MEDS: ALBUTEROL SO4 2.5/IPRATROPIUM 0.5 INH SOL 3 ML VIAL.NEB. NEB SCH ×5 (04:07→20:00)
[2018-08-06] MEDS: dilTIAZem HCL 30 MG TABLET (FP) PO SCH ×3 (06:05→21:30)
[2018-08-06] MEDS: INSULIN SLIDING SCALE (NOVOLOG) 1 VIAL SQ SCH ×4 (06:19→21:42)
[2018-08-06 06:42] LABS: BASO % 0.3 % (0-2.0); EOS % 0.1 % (0-4.5); HEMATOCRIT 32.8 % (32.4-45.2); HEMOGLOBIN 11.6 GM/dL (10.7-15.3); LYMPH % 0.8 % (8-40); MCH 31.3 pg (25.7-33.7); MCHC 35.2 g/dl (32.0-36.0); MEAN CELL VOLUME 88.7 fl (80-96); MEAN PLT VOLUME 10.5 fl (7.5-11.1); MONO % 1.2 % (3.8-10.2); NEUT % 97.6 % (42.8-82.8); PLATELET COUNT 48 K/MM3 (134-434); RBC 3.69 M/mm3 (3.60-5.2); RDW 15.8 % (11.6-15.6); WHITE BLOOD COUNT 10.7 K/mm3 (4.0-10.0)
[2018-08-06 07:22] LABS: ANION GAP 6 MMOL/L (8-16); BLOOD UREA NITROGEN 53 mg/dL (7-18); CALCIUM 8.6 mg/dL (8.5-10.1); CHLORIDE 107 mmol/L (98-107); CO2 38 mmol/L (21-32); CREATININE 0.7 mg/dL (0.55-1.3); GLUCOSE,RANDOM 160 mg/dL (74-106); POTASSIUM 3.3 mmol/L (3.5-5.1); SODIUM 151 mmol/L (136-145)
--- NOTE | 2018-08-06 07:33 | PN ---
Progress Note, Physician Chief Complaint: chest tightness no bleed now but had some blood in diaper last night GI? ? origin - Current Medication List Current Medications: Active Medications Acetaminophen (Tylenol -) 650 mg PO Q6H PRN PRN Reason: PAIN Albuterol Sulfate (Ventolin 0.083% Nebulizer Soln -) 1 amp NEB Q4H PRN PRN Reason: SHORT OF BREATH/WHEEZING Albuterol/Ipratropium (Duoneb -) 1 amp NEB RQ4H [facility] Last Admin: 08/06/18 04:07 Dose: 1 amp Alprazolam (Xanax -) 0.25 mg PO Q8H PRN PRN Reason: ANXIETY Last Admin: 08/05/18 21:36 Dose: 0.25 mg Budesonide/Formoterol Fumarate (Symbicort 80/4.5mcg -) 2 puff IH BID [facility] Last Admin: 08/05/18 21:39 Dose: 2 puff Diltiazem HCl (Cardizem -) 30 mg PO TID [facility] Last Admin: 08/06/18 06:05 Dose: 30 mg Gabapentin (Neurontin -) 100 mg PO DAILY [facility] Last Admin: 08/05/18 10:54 Dose: 100 mg Guaifenesin (Mucinex -) 600 mg PO BID [facility] Last Admin: 08/05/18 21:36 Dose: 600 mg Guaifenesin (Robitussin -) 10 ml PO Q6H PRN PRN Reason: COUGH Azithromycin (Zithromax 500mg Ivpb (Pre-Docked)) 500 mg in 250 mls @ 250 mls/ hr IVPB DAILY [facility] Last Admin: 08/05/18 10:53 Dose: 250 mls/hr Ceftriaxone Sodium 1 gm/ (Dextrose) 50 mls @ 100 mls/hr IVPB DAILY [facility] Last Admin: 08/05/18 10:53 Dose: 100 mls/hr Dextrose (D5w -) 1,000 mls @ 50 mls/hr IV ASDIR [facility] Last Admin: 08/05/18 14:28 Dose: 50 mls/hr Insulin Aspart (Novolog Vial Sliding Scale -) 1 vial SQ ACHS [facility]; Protocol Last Admin: 08/06/18 06:19 Dose: 2 units Lactobacillus Acidophilus (Bacid -) 1 tab PO DAILY [facility] Last Admin: 08/05/18 10:53 Dose: 1 tab Methylprednisolone Sodium Succinate (Solu-Medrol -) 40 mg IVPUSH Q6H-IV [facility] Last Admin: 08/06/18 02:43 Dose: 40 mg Metoprolol Tartrate (Lopressor Injection -) 5 mg IVPUSH Q4H PRN PRN Reason: HYPERTENSION Last Admin: 07/31/18 17:24 Dose: 5 mg Metoprolol Tartrate (Lopressor -) 25 mg PO BID [facility] Last Admin: 08/05/18 21:36 Dose: 25 mg Multivitamins/Minerals/Vitamin C (Tab-A-Vit -) 1 tab PO DAILY [facility] Pantoprazole Sodium (Protonix Iv) 40 mg IVPUSH DAILY [facility] Last Admin: 08/05/18 10:53 Dose: 40 mg Potassium Chloride (K-Dur -) 20 meq PO DAILY [facility] Last Admin: 08/05/18 10:53 Dose: 20 meq Ranitidine HCl (Zantac -) 150 mg PO DAILY [facility] Last Admin: 08/05/18 10:53 Dose: 150 mg Rosuvastatin Calcium (Crestor -) 20 mg PO HS [facility] Last Admin: 08/05/18 21:36 Dose: 20 mg - Objective Vital Signs: Vital Signs Temperature 97.4 F L 08/06/18 05:15 Pulse Rate 73 08/06/18 05:15 Respiratory Rate 20 08/06/18 05:15 Blood Pressure 136/66 08/06/18 05:15 O2 Sat by Pulse Oximetry (%) 93 L 08/06/18 06:55 Constitutional: Yes: No Distress, Calm Eyes: Yes: Conjunctiva Clear HENT: Yes: Atraumatic Neck: Yes: Supple Cardiovascular: Yes: Regular Rate and Rhythm Respiratory: Yes: Rales, Rhonchi Gastrointestinal: Yes: Soft. No: Tenderness Genitourinary: No: Hematuria Musculoskeletal: No: Joint Stiffness, Joint Swelling Extremities: No: Cold, Cool, Cyanosis Edema: No Integumentary: Yes: Pressure Ulcer (stage 2 sacral). No: Rash, Venous Stasis Changes Neurological: Yes: Alert, Oriented ...Motor Strength: WNL Psychiatric: Yes: Alert, Oriented. No: Agitated, Suicidal Ideation Labs: CBC, BMP 08/06/18 05:30 08/06/18 05:30 INR, PTT INR 1.01 (0.83-1.09) 01/07/19 16:43 - ....Imaging Other: Report Reviewed Assessment/Plan The patient is an 82 year old female with a PMH of COPD (on 2L), Stage 3a NSCC ( currently on radiation), CAD s/p MA (s/p cardiac stent x3), HTN, HLD \admitted with acute onset of shortness of breath, acute on chronic COPD exac and bronchitis, new L sided PNA and metastatic ds lung, liver bones; borderline + troponins h/o ASHD stent, high BNP h/o CHF low EF, s/p hemoptysis and low GIB; new onset rapid AFib, low Platelets and anemia - s/p 2 U PRBC and sq lovenox stopped. GI f/u; HyperNatremia. f/u labs and CXR iv steroids, nebs, O2 and iv antibiotics IV PPI; IV Half saline BGM, sq insulin prn PULM, Cardiology f/u HR control; ONC f/u falls PFX, gastric, DVT aspiration PFX; turn q1-2h in bed; air mattress d/w staff prognosis guarded might need ventilatory support if respiratory status worsens d /w pt advanced directives but she does not want to think about it now. d/w pt and staff d/w pt's grandson Ti
[2018-08-06] MEDS ORDERED: cefTRIAXone SODIUM 1 GM VIAL ONE (09:14)
[2018-08-06] MEDS ORDERED: DEXTROSE 5%-WATER - 50 ML IVPB ONE (09:15)
[2018-08-06] MEDS: AZITHROMYCIN IVPB 500 MG/250 ML BAG IVPB SCH (09:59)
[2018-08-06] MEDS: CEFTRIAXONE 1 GM in DEXTROSE 5%-WATER - 50 ML IVPB SCH (09:59)
[2018-08-06] MEDS: MULTIVITAMINS (DAILY MVI) TABLET (FP) PO SCH (10:00)
[2018-08-06] MEDS: RANITIDINE HCL 150 MG TABLET (FP) PO SCH (10:00)
[2018-08-06] MEDS: PANTOPRAZOLE SODIUM 40 MG VIAL IVPUSH SCH (10:00)
[2018-08-06] MEDS: GABAPENTIN 100 MG CAPSULE (FP) PO SCH (10:00)
[2018-08-06] MEDS: LACTOBACILLUS ACIDOPHILUS 1 TABLET PO SCH (10:01)
[2018-08-06] MEDS: guaiFENesin 600 MG TABLET.ER (FP) PO SCH ×2 (10:01→21:30)
[2018-08-06] MEDS: POTASSIUM CHLORIDE TABS 20 MEQ TABLET.ER (FP) PO SCH (10:01)
[2018-08-06] MEDS: METOPROLOL TARTRATE 25 MG TABLET (FP) PO SCH ×2 (10:01→21:30)
[2018-08-06] MEDS: BUDESONIDE/FORMETEROL FUMARATE 80/4.5 mcg INHALER IH SCH ×2 (10:02→21:36)
--- NOTE | 2018-08-06 10:07 | PN ---
Progress Note, Physician History of Present Illness: PULMONARY AWAKE,REMAINS ON BIPAP,LESS DYSPNEIC - Current Medication List Current Medications: Active Medications Acetaminophen (Tylenol -) 650 mg PO Q6H PRN PRN Reason: PAIN Albuterol Sulfate (Ventolin 0.083% Nebulizer Soln -) 1 amp NEB Q4H PRN PRN Reason: SHORT OF BREATH/WHEEZING Albuterol/Ipratropium (Duoneb -) 1 amp NEB RQ4H [facility] Last Admin: 08/06/18 07:56 Dose: 1 amp Alprazolam (Xanax -) 0.25 mg PO Q8H PRN PRN Reason: ANXIETY Last Admin: 08/05/18 21:36 Dose: 0.25 mg Budesonide/Formoterol Fumarate (Symbicort 80/4.5mcg -) 2 puff IH BID [facility] Last Admin: 08/06/18 10:02 Dose: 2 puff Diltiazem HCl (Cardizem -) 30 mg PO TID [facility] Last Admin: 08/06/18 06:05 Dose: 30 mg Gabapentin (Neurontin -) 100 mg PO DAILY [facility] Last Admin: 08/06/18 10:00 Dose: 100 mg Guaifenesin (Mucinex -) 600 mg PO BID [facility] Last Admin: 08/06/18 10:01 Dose: 600 mg Guaifenesin (Robitussin -) 10 ml PO Q6H PRN PRN Reason: COUGH Azithromycin (Zithromax 500mg Ivpb (Pre-Docked)) 500 mg in 250 mls @ 250 mls/ hr IVPB DAILY [facility] Last Admin: 08/06/18 09:59 Dose: 250 mls/hr Ceftriaxone Sodium 1 gm/ (Dextrose) 50 mls @ 100 mls/hr IVPB DAILY [facility] Last Admin: 08/06/18 09:59 Dose: 100 mls/hr Dextrose (D5w -) 1,000 mls @ 50 mls/hr IV ASDIR [facility] Last Admin: 08/05/18 14:28 Dose: 50 mls/hr Insulin Aspart (Novolog Vial Sliding Scale -) 1 vial SQ ACHS [facility]; Protocol Last Admin: 08/06/18 06:19 Dose: 2 units Lactobacillus Acidophilus (Bacid -) 1 tab PO DAILY [facility] Last Admin: 08/06/18 10:01 Dose: 1 tab Methylprednisolone Sodium Succinate (Solu-Medrol -) 40 mg IVPUSH Q6H-IV [facility] Last Admin: 08/06/18 09:58 Dose: 40 mg Metoprolol Tartrate (Lopressor Injection -) 5 mg IVPUSH Q4H PRN PRN Reason: HYPERTENSION Last Admin: 07/31/18 17:24 Dose: 5 mg Metoprolol Tartrate (Lopressor -) 25 mg PO BID [facility] Last Admin: 08/06/18 10:01 Dose: 25 mg Multivitamins/Minerals/Vitamin C (Tab-A-Vit -) 1 tab PO DAILY [facility] Last Admin: 08/06/18 10:00 Dose: 1 tab Pantoprazole Sodium (Protonix Iv) 40 mg IVPUSH DAILY [facility] Last Admin: 08/06/18 10:00 Dose: 40 mg Potassium Chloride (K-Dur -) 20 meq PO DAILY [facility] Last Admin: 08/06/18 10:01 Dose: 20 meq Ranitidine HCl (Zantac -) 150 mg PO DAILY [facility] Last Admin: 08/06/18 10:00 Dose: 150 mg Rosuvastatin Calcium (Crestor -) 20 mg PO HS [facility] Last Admin: 08/05/18 21:36 Dose: 20 mg - Objective Vital Signs: Vital Signs Temperature 98.0 F 08/06/18 09:00 Pulse Rate 77 08/06/18 09:00 Respiratory Rate 31 H 08/06/18 09:00 Blood Pressure 151/63 08/06/18 09:00 O2 Sat by Pulse Oximetry (%) 93 L 08/06/18 06:55 Constitutional: Yes: Calm, Thin Eyes: Yes: WNL HENT: Yes: WNL Neck: Yes: WNL Cardiovascular: Yes: Regular Rate and Rhythm, S1, S2 Respiratory: Yes: Diminished Gastrointestinal: Yes: Normal Bowel Sounds, Soft Extremities: Yes: WNL Edema: No Labs: CBC, BMP 08/06/18 05:30 08/06/18 05:30 INR, PTT INR 1.01 (0.83-1.09) 07/08/18 16:43 Assessment/Plan Problem List - Problems (1) Adenocarcinoma, lung Code(s): C34.90 - MALIGNANT NEOPLASM OF UNSP PART OF UNSP BRONCHUS OR LUNG (2) ASHD (arteriosclerotic heart disease) Code(s): I25.10 - ATHSCL HEART DISEASE OF [place] CORONARY ARTERY W/O ANG PCTRS (3) Anxiety and depression Code(s): F41.9 - ANXIETY DISORDER, UNSPECIFIED; F32.9 - MAJOR DEPRESSIVE DISORDER, SINGLE EPISODE, UNSPECIFIED (4) COPD (chronic obstructive pulmonary disease) Code(s): J44.9 - CHRONIC OBSTRUCTIVE PULMONARY DISEASE, UNSPECIFIED Qualifiers: COPD type: unspecified COPD Qualified Code(s): J44.9 - Chronic obstructive pulmonary disease, unspecified (5) COPD exacerbation Code(s): J44.1 - CHRONIC OBSTRUCTIVE PULMONARY DISEASE W (ACUTE) EXACERBATION (6) Cough Code(s): R05 - COUGH (7) Diastolic CHF Code(s): I50.30 - UNSPECIFIED DIASTOLIC (CONGESTIVE) HEART FAILURE (8) HTN (hypertension) Code(s): I10 - ESSENTIAL (PRIMARY) HYPERTENSION (9) Hyperlipidemia Code(s): E78.5 - HYPERLIPIDEMIA, UNSPECIFIED (10) Hypothyroid Code(s): E03.9 - HYPOTHYROIDISM, UNSPECIFIED (11) Shortness of breath Code(s): R06.02 - SHORTNESS OF BREATH 12 HYPERNATREMIA A/P Acute COPD Exacerbation s/p RT session NSCLC - Adenocarcinoma mets to rib/liver LV Diastolic Dysfunction AFIB HTN Hypothyroidism Hyperlipidemia - medrol - inhaled bronchodilators - on empiric antibiotics - rehab/PT - DVT prophylaxis - continue bipap ,O2 - D5W - monitor lytes,na - AC DR CARDOSO
[2018-08-06 12:57] LABS: ANISOCYTOSIS 0; MACROCYTOSIS 0; PLATELET ESTIMATE DECREASED
--- NOTE | 2018-08-06 13:30 | PN ---
Progress Note (short form) - Note Progress Note: Renal follow up for Hypernatremia Pt seen and examined at the bedside awake and alert on BIPAP continues to have cough no chest pain making urine Vital Signs Temperature 98.0 F 08/06/18 09:00 Pulse Rate 77 08/06/18 09:00 Respiratory Rate 31 H 08/06/18 09:00 Blood Pressure 151/63 08/06/18 09:00 O2 Sat by Pulse Oximetry (%) 93 L 08/06/18 09:00 Intake & Output 08/03/18 08/04/18 08/05/18 08/06/18 23:59 23:59 23:59 23:59 Intake Total 970 1440 1697 720 Balance 970 1440 1697 720 NAD awake and alert Dec BS no Le edema CBC, BMP 08/06/18 05:30 08/06/18 05:30 Current Medications Acetaminophen (Tylenol -) 650 mg PO Q6H PRN PRN Reason: PAIN Albuterol Sulfate (Ventolin 0.083% Nebulizer Soln -) 1 amp NEB Q4H PRN PRN Reason: SHORT OF BREATH/WHEEZING Albuterol/Ipratropium (Duoneb -) 1 amp NEB RQ4H [facility] Last Admin: 08/06/18 07:56 Dose: 1 amp Alprazolam (Xanax -) 0.25 mg PO Q8H PRN PRN Reason: ANXIETY Last Admin: 08/05/18 21:36 Dose: 0.25 mg Budesonide/Formoterol Fumarate (Symbicort 80/4.5mcg -) 2 puff IH BID [facility] Last Admin: 08/06/18 10:02 Dose: 2 puff Diltiazem HCl (Cardizem -) 30 mg PO TID [facility] Last Admin: 08/06/18 06:05 Dose: 30 mg Gabapentin (Neurontin -) 100 mg PO DAILY [facility] Last Admin: 08/06/18 10:00 Dose: 100 mg Guaifenesin (Mucinex -) 600 mg PO BID [facility] Last Admin: 08/06/18 10:01 Dose: 600 mg Guaifenesin (Robitussin -) 10 ml PO Q6H PRN PRN Reason: COUGH Azithromycin (Zithromax 500mg Ivpb (Pre-Docked)) 500 mg in 250 mls @ 250 mls/ hr IVPB DAILY [facility] Last Admin: 08/06/18 09:59 Dose: 250 mls/hr Ceftriaxone Sodium 1 gm/ (Dextrose) 50 mls @ 100 mls/hr IVPB DAILY [facility] Last Admin: 08/06/18 09:59 Dose: 100 mls/hr Dextrose (D5w -) 1,000 mls @ 50 mls/hr IV ASDIR [facility] Last Admin: 08/05/18 14:28 Dose: 50 mls/hr Insulin Aspart (Novolog Vial Sliding Scale -) 1 vial SQ ACHS [facility]; Protocol Last Admin: 08/06/18 11:45 Dose: 10 units Lactobacillus Acidophilus (Bacid -) 1 tab PO DAILY [facility] Last Admin: 08/06/18 10:01 Dose: 1 tab Methylprednisolone Sodium Succinate (Solu-Medrol -) 40 mg IVPUSH Q6H-IV [facility] Last Admin: 08/06/18 09:58 Dose: 40 mg Metoprolol Tartrate (Lopressor Injection -) 5 mg IVPUSH Q4H PRN PRN Reason: HYPERTENSION Last Admin: 07/31/18 17:24 Dose: 5 mg Metoprolol Tartrate (Lopressor -) 25 mg PO BID [facility] Last Admin: 08/06/18 10:01 Dose: 25 mg Multivitamins/Minerals/Vitamin C (Tab-A-Vit -) 1 tab PO DAILY [facility] Last Admin: 08/06/18 10:00 Dose: 1 tab Pantoprazole Sodium (Protonix Iv) 40 mg IVPUSH DAILY [facility] Last Admin: 08/06/18 10:00 Dose: 40 mg Potassium Chloride (K-Dur -) 20 meq PO DAILY [facility] Last Admin: 08/06/18 10:01 Dose: 20 meq Ranitidine HCl (Zantac -) 150 mg PO DAILY [facility] Last Admin: 08/06/18 10:00 Dose: 150 mg Rosuvastatin Calcium (Crestor -) 20 mg PO HS [facility] Last Admin: 08/05/18 21:36 Dose: 20 mg 82 yr old female with recently dx'd with lung adenocarcinoma, COPD on home O2 @ 2L, HTN, HLD, ACS s/p myocardial infarction x 2, brought in post-RT treatment due to trouble breathing with respiraotory failure and progressive hypernatremia #Hypernatremia (water deficit ~3L) #Hypoxia #Hypokalemia #PNA #COPD #Adenocarcinoma of the Lung serum na with mild improvement, continue D5W as tolerated can given PRN lasix if concern for chest congestion/fluid overload oral water intake as tolerated continue supplemental O2/BIPAP as needed supplement K, trend Mg levels as well Stan Harrison DO
--- NOTE | 2018-08-06 13:32 | PN ---
Progress Note, Physician Chief Complaint: Pt alert;hungry; still feels she is not getting enough oxygen, even with Bipap. History of Present Illness: The patient is an 82 year old white female with a PMH of COPD (on 2L), Stage 3a NSCC lung cancer (currently on radiation), CAD s/p VT (s/p cardiac stent x3), HTN, HLD was BIBEMS for acute onset of shortness of breath. Patient was completing her first radiation treatment today when she suddenly became short of breath. Denies chest pain, lightheadedness, nausea, diaphoresis. Grandson @ bedside assists in history, notes patient has been taking her Albuterol inhaler multiple times daily. Recent medication addition of Symbicort to her daily regimen. History limited as patient tachycardic, tachypneic @ presentation. NKDA Surgical: Cardiac Stent x3, lung biopsy PMD: Dr. Mary Beth Stein Cardiology: Dr. Bah Pulmonology: Dr. Kern/Dr. Velazquez - Current Medication List Current Medications: Active Medications Acetaminophen (Tylenol -) 650 mg PO Q6H PRN PRN Reason: PAIN Albuterol Sulfate (Ventolin 0.083% Nebulizer Soln -) 1 amp NEB Q4H PRN PRN Reason: SHORT OF BREATH/WHEEZING Albuterol/Ipratropium (Duoneb -) 1 amp NEB RQ4H [facility] Last Admin: 08/06/18 07:56 Dose: 1 amp Alprazolam (Xanax -) 0.25 mg PO Q8H PRN PRN Reason: ANXIETY Last Admin: 08/05/18 21:36 Dose: 0.25 mg Budesonide/Formoterol Fumarate (Symbicort 80/4.5mcg -) 2 puff IH BID [facility] Last Admin: 08/06/18 10:02 Dose: 2 puff Diltiazem HCl (Cardizem -) 30 mg PO TID [facility] Last Admin: 08/06/18 06:05 Dose: 30 mg Gabapentin (Neurontin -) 100 mg PO DAILY [facility] Last Admin: 08/06/18 10:00 Dose: 100 mg Guaifenesin (Mucinex -) 600 mg PO BID [facility] Last Admin: 08/06/18 10:01 Dose: 600 mg Guaifenesin (Robitussin -) 10 ml PO Q6H PRN PRN Reason: COUGH Azithromycin (Zithromax 500mg Ivpb (Pre-Docked)) 500 mg in 250 mls @ 250 mls/ hr IVPB DAILY [facility] Last Admin: 08/06/18 09:59 Dose: 250 mls/hr Ceftriaxone Sodium 1 gm/ (Dextrose) 50 mls @ 100 mls/hr IVPB DAILY [facility] Last Admin: 08/06/18 09:59 Dose: 100 mls/hr Dextrose (D5w -) 1,000 mls @ 50 mls/hr IV ASDIR [facility] Last Admin: 08/05/18 14:28 Dose: 50 mls/hr Insulin Aspart (Novolog Vial Sliding Scale -) 1 vial SQ ACHS [facility]; Protocol Last Admin: 08/06/18 11:45 Dose: 10 units Lactobacillus Acidophilus (Bacid -) 1 tab PO DAILY [facility] Last Admin: 08/06/18 10:01 Dose: 1 tab Methylprednisolone Sodium Succinate (Solu-Medrol -) 40 mg IVPUSH Q6H-IV [facility] Last Admin: 08/06/18 09:58 Dose: 40 mg Metoprolol Tartrate (Lopressor Injection -) 5 mg IVPUSH Q4H PRN PRN Reason: HYPERTENSION Last Admin: 07/31/18 17:24 Dose: 5 mg Metoprolol Tartrate (Lopressor -) 25 mg PO BID [facility] Last Admin: 08/06/18 10:01 Dose: 25 mg Multivitamins/Minerals/Vitamin C (Tab-A-Vit -) 1 tab PO DAILY [facility] Last Admin: 08/06/18 10:00 Dose: 1 tab Pantoprazole Sodium (Protonix Iv) 40 mg IVPUSH DAILY [facility] Last Admin: 08/06/18 10:00 Dose: 40 mg Potassium Chloride (K-Dur -) 20 meq PO DAILY [facility] Last Admin: 08/06/18 10:01 Dose: 20 meq Ranitidine HCl (Zantac -) 150 mg PO DAILY [facility] Last Admin: 08/06/18 10:00 Dose: 150 mg Rosuvastatin Calcium (Crestor -) 20 mg PO HS [facility] Last Admin: 08/05/18 21:36 Dose: 20 mg - Objective Vital Signs: Vital Signs Temperature 98.0 F 08/06/18 09:00 Pulse Rate 77 08/06/18 09:00 Respiratory Rate 31 H 08/06/18 09:00 Blood Pressure 151/63 08/06/18 09:00 O2 Sat by Pulse Oximetry (%) 93 L 08/06/18 09:00 Constitutional: Yes: Anxious, Cachectic Eyes: Yes: WNL HENT: Yes: WNL Neck: Yes: WNL Cardiovascular: Yes: Tachycardia, Pulse Irregular, S1 (varies in intensity), S2 Respiratory: Yes: Accessory Muscle Use, On BiPap, SOB, Tachypnea Gastrointestinal: Yes: Soft ...Rectal Exam: Yes: Deferred Genitourinary: No: Anuria Breast(s): Yes: WNL Musculoskeletal: Yes: Muscle Weakness Extremities: Yes: Cool Edema: No Peripheral Pulses WNL: No Peripheral Pulses: Left Doralis Pedis: 1+, Right Dorsalis Pedis: 1+ Integumentary: Yes: WNL Neurological: Yes: Alert, Oriented, Weakness Psychiatric: Yes: Alert, Oriented, Other (anxiety/depression) Labs: CBC, BMP 08/06/18 05:30 08/06/18 05:30 INR, PTT INR 1.01 (0.83-1.09) 07/08/18 16:43 Abnormal Lab Results 08/03/18 08/06/18 08/06/18 06:48 05:30 05:30 WBC 10.7 H RDW 15.8 H Plt Count 48 L Absolute Neuts (auto) 10.4 H Neutrophils % 97.6 H Neutrophils % (Manual) 95.9 H Lymphocytes % 0.8 L Lymphocytes % (Manual) 1.0 L D Monocytes % 1.2 L Monocytes % (Manual) 2 L D Sodium 151 H Potassium 3.3 L Carbon Dioxide 38 H Anion Gap 6 L BUN 53 H Random Glucose 160 H Heparin-Ind Plt Ab Scrn 0.443 H - ....Imaging Chest X-ray: Image Reviewed Other: Image Reviewed (telemetry: NSR) Problem List - Problems (1) Elevated troponin I level Assessment/Plan: 0.02-->0.21-->0.19; normal CK EKG: PAF, periods of RVR. Pt likely has demand ischemia from exacerbation of COPD, diastolic CHF, CA, tachycardia. Given pt's advanced lung CA, would recommend conservative management of cardiac condition (she is on metoprolol, diltiazem, statin, ASA, Lovenox) Code(s): R74.8 - ABNORMAL LEVELS OF OTHER SERUM ENZYMES (2) Adenocarcinoma, lung Assessment/Plan: Advanced CA, with bone and liver metastases. F/u with hem/onc. Code(s): C34.90 - MALIGNANT NEOPLASM OF UNSP PART OF UNSP BRONCHUS OR LUNG (3) Shortness of breath Assessment/Plan: Deteriorating pulmonary status. Code(s): R06.02 - SHORTNESS OF BREATH (4) HTN (hypertension) Assessment/Plan: On metoprolol, diltiazem, and furosemide. Code(s): I10 - ESSENTIAL (PRIMARY) HYPERTENSION (5) Hyperlipidemia Assessment/Plan: on statin Code(s): E78.5 - HYPERLIPIDEMIA, UNSPECIFIED (6) Acute on chronic diastolic CHF (congestive heart failure) Assessment/Plan: On metoprolol, diltiazem, and Furosemide f/u BUn/Cr, electrolytes, daily weight, Is and Os. Code(s): I50.33 - ACUTE ON CHRONIC DIASTOLIC (CONGESTIVE) HEART FAILURE (7) Atrial fibrillation Assessment/Plan: On metoprolol and diltiazem for HR control. Now in sinus rhythm; f/u BP. Lovenox discontinued due to platetlets < 50,000, anemia-->PRBCs, hematuria. Replete K+, and follow all electrolytes. Code(s): I48.91 - UNSPECIFIED ATRIAL FIBRILLATION (8) Hypokalemia Assessment/Plan: replete, and keep K+ 4.0-4.5. Keep Mg 2.0-2.4 Keep PO4 2.5-4.9. Code(s): E87.6 - HYPOKALEMIA
[2018-08-06] MEDS: DEXTROSE 5%-WATER - 1,000 ML IV SCH ×2 (13:35→14:06)
[2018-08-06] MEDS: ALPRAZolam 0.25 MG TABLET PO PRN ×2 (14:06→21:32)
[2018-08-06 14:22] LABS: MAGNESIUM 2.6 mg/dL (1.8-2.4); PHOSPHOROUS 3.3 mg/dL (2.5-4.9)
--- NOTE | 2018-08-06 17:55 | PN ---
GI Progress Note Subjective: GI NOte: The rectal bleeding has fortunately stopped. Shanna denies abdominal pain. Dyspneic despite BiPAP - Objective Vital Signs: Vital Signs Temperature 98.2 F 08/06/18 14:15 Pulse Rate 77 08/06/18 14:15 Respiratory Rate 28 H 08/06/18 14:15 Blood Pressure 143/56 L 08/06/18 14:15 O2 Sat by Pulse Oximetry (%) 96 08/06/18 14:29 CBC,CMP WBC 10.7 K/mm3 (4.0-10.0) H 08/06/18 05:30 RBC 3.69 M/mm3 (3.60-5.2) 08/06/18 05:30 Hgb 11.6 GM/dL (10.7-15.3) 08/06/18 05:30 Hct 32.8 % (32.4-45.2) 08/06/18 05:30 MCV 88.7 fl (80-96) 08/06/18 05:30 MCH 31.3 pg (25.7-33.7) 08/06/18 05:30 MCHC 35.2 g/dl (32.0-36.0) 08/06/18 05:30 RDW 15.8 % (11.6-15.6) H 08/06/18 05:30 Plt Count 48 K/MM3 (134-434) L 08/06/18 05:30 MPV 10.5 fl (7.5-11.1) 08/06/18 05:30 Absolute Neuts (auto) 10.4 K/mm3 (1.5-8.0) H 08/06/18 05:30 Total Counted 100 07/31/18 05:30 Neutrophils % 97.6 % (42.8-82.8) H 08/06/18 05:30 Neutrophils % (Manual) 95.9 % (42.8-82.8) H 08/06/18 05:30 Band Neutrophils % 0.0 % 08/06/18 05:30 Lymphocytes % 0.8 % (8-40) L 08/06/18 05:30 Lymphocytes % (Manual) 1.0 % (8-40) L D 08/06/18 05:30 Monocytes % 1.2 % (3.8-10.2) L 08/06/18 05:30 Monocytes % (Manual) 2 % (3.8-10.2) L D 08/06/18 05:30 Eosinophils % 0.1 % (0-4.5) D 08/06/18 05:30 Eosinophils % (Manual) 0.0 % (0-4.5) 08/06/18 05:30 Basophils % 0.3 % (0-2.0) 08/06/18 05:30 Basophils % (Manual) 0.0 % (0-2.0) 08/06/18 05:30 Myelocytes % (Man) 1 % (0-2) D 08/06/18 05:30 Promyelocytes % (Man) 0 % (0-2) 08/06/18 05:30 Blast Cells % (Manual) 0 % (0-0) 08/06/18 05:30 Nucleated RBC % 0 % (0-0) 08/06/18 05:30 Metamyelocytes 0 % (0-2) 08/06/18 05:30 Hypochromia 0 08/06/18 05:30 Toxic Granulation 0 08/01/18 05:30 [place]ohle Bodies 0 08/01/18 05:30 Platelet Estimate Decreased 08/06/18 05:30 Platelet Comment No clumping noted 07/31/18 05:30 Polychromasia 1+ 08/06/18 05:30 Poikilocytosis 0 08/06/18 05:30 Basophilic Stippling 0 08/01/18 05:30 Anisocytosis 0 08/06/18 05:30 Microcytosis 0 08/06/18 05:30 Macrocytosis 0 08/06/18 05:30 Spherocytes 0 08/01/18 05:30 Sickle Cells 0 08/01/18 05:30 Target Cells 0 08/01/18 05:30 Tear Drop Cells 0 08/01/18 05:30 Ovalocytes 1+ 08/05/18 05:30 Stomatocytes 0 08/01/18 05:30 Helmet Cells 0 08/01/18 05:30 [place] Bodies 0 08/01/18 05:30 [place] Rings 0 08/01/18 05:30 [place] Cells 0 08/01/18 05:30 Acanthocytes (Spur) 0 08/01/18 05:30 Rouleaux 0 08/01/18 05:30 Fragmented RBCs 0 08/01/18 05:30 Schistocytes 0 08/01/18 05:30 Sodium 151 mmol/L (136-145) H 08/06/18 05:30 Potassium 3.3 mmol/L (3.5-5.1) L 08/06/18 05:30 Chloride 107 mmol/L (98-107) 08/06/18 05:30 Carbon Dioxide 38 mmol/L (21-32) H 08/06/18 05:30 Anion Gap 6 MMOL/L (8-16) L 08/06/18 05:30 BUN 53 mg/dL (7-18) H 08/06/18 05:30 Creatinine 0.7 mg/dL (0.55-1.3) 08/06/18 05:30 Creat Clearance w eGFR > 60 (>60) 08/06/18 05:30 POC Glucometer 148 UNITS (80-120) 08/06/18 16:50 Random Glucose 160 mg/dL (74-106) H 08/06/18 05:30 Lactic Acid 2.0 mmol/L (0.4-2.0) 07/08/18 16:43 Calcium 8.6 mg/dL (8.5-10.1) 08/06/18 05:30 Phosphorus 3.3 mg/dL (2.5-4.9) 08/06/18 05:30 Magnesium 2.6 mg/dL (1.8-2.4) H 08/06/18 05:30 Iron 66 ug/dL (27-139) 07/17/18 06:30 TIBC 300 ug/dL (250-450) 07/17/18 06:30 Iron Saturation 22 % (15-55) 07/17/18 06:30 Ferritin 105.3 ng/ml (8-388) 07/17/18 06:30 Total Bilirubin 1.4 mg/dL (0.2-1) H 08/05/18 05:30 Direct Bilirubin 0.1 mg/dL (0.0-0.2) 07/17/18 06:30 AST 37 U/L (15-37) 08/05/18 05:30 ALT 76 U/L (13-61) H 08/05/18 05:30 Alkaline Phosphatase 72 U/L (45-117) 08/05/18 05:30 Creatine Kinase 60 U/L (26-192) 07/28/18 06:30 Troponin I 0.35 ng/ml (0.00-0.05) H 07/28/18 06:30 B-Natriuretic Peptide 2030.7 pg/ml (5-450) H 07/28/18 06:30 Total Protein 5.4 g/dl (6.4-8.2) L 08/05/18 05:30 Albumin 3.1 g/dl (3.4-5.0) L 08/05/18 05:30 Tumor Marker AFP 11.2 ng/ml (0.0-8.3) H 07/17/18 06:30 ...Auscultate: Yes: Hypoactive Bowel Sounds ...Palpate: Yes: Soft, Other (nontender) ...Percussion: Yes: Tympanitic Labs: CBC, BMP 08/06/18 05:30 08/06/18 05:30 INR, PTT INR 1.01 (0.83-1.09) 07/08/18 16:43 Assessment/Plan Self-limited rectal bleeding is likely hemorrhoidal in origin. Not a candidate for endoscopic evaluation Right lung adenocarcinoma with liver metastases Problem List - Problems (1) Rectal bleeding Assessment/Plan: Given the abbreviated nature of the rectal bleeding a hemorrhoidal origin is suspected Code(s): K62.5 - HEMORRHAGE OF ANUS AND RECTUM (2) Liver mass, right lobe Code(s): R16.0 - HEPATOMEGALY, NOT ELSEWHERE CLASSIFIED (3) Abnormal liver enzymes Code(s): R74.8 - ABNORMAL LEVELS OF OTHER SERUM ENZYMES (4) Adenocarcinoma, lung Code(s): C34.90 - MALIGNANT NEOPLASM OF UNSP PART OF UNSP BRONCHUS OR LUNG (5) COPD (chronic obstructive pulmonary disease) Code(s): J44.9 - CHRONIC OBSTRUCTIVE PULMONARY DISEASE, UNSPECIFIED Qualifiers: COPD type: unspecified COPD Qualified Code(s): J44.9 - Chronic obstructive pulmonary disease, unspecified (6) 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
[2018-08-06] MEDS: ROSUVASTATIN CA 20 MG TABLET (FP) PO SCH (21:30)
[2018-08-07] MEDS: ALBUTEROL SO4 2.5/IPRATROPIUM 0.5 INH SOL 3 ML VIAL.NEB. NEB SCH ×6 (00:16→20:34)
[2018-08-07] MEDS: methylPREDNISolone NA SUCC 40 MG/1 ML VIAL IVPUSH SCH ×4 (02:39→22:47)
[2018-08-07] MEDS: dilTIAZem HCL 30 MG TABLET (FP) PO SCH ×3 (05:56→22:47)
[2018-08-07] MEDS: INSULIN SLIDING SCALE (NOVOLOG) 1 VIAL SQ SCH ×4 (06:26→22:47)
[2018-08-07 08:03] LABS: BASO % 1.1 % (0-2.0); HEMATOCRIT 33.1 % (32.4-45.2); HEMOGLOBIN 11.6 GM/dL (10.7-15.3); LYMPH % 0.6 % (8-40); MCHC 34.9 g/dl (32.0-36.0); MEAN CELL VOLUME 88.7 fl (80-96); MEAN PLT VOLUME 10.2 fl (7.5-11.1); MONO % 0.9 % (3.8-10.2); NEUT % 97.4 % (42.8-82.8); PLATELET COUNT 45 K/MM3 (134-434); RBC 3.73 M/mm3 (3.60-5.2); RDW 15.6 % (11.6-15.6); WHITE BLOOD COUNT 11.5 K/mm3 (4.0-10.0)
[2018-08-07 09:22] LABS: ALBUMIN 2.8 g/dl (3.4-5.0); ALK PHOS 100 U/L (45-117); ANION GAP 7 MMOL/L (8-16); BILIRUBIN,TOTAL 0.8 mg/dL (0.2-1); BLOOD UREA NITROGEN 52 mg/dL (7-18); CALCIUM 8.2 mg/dL (8.5-10.1); CHLORIDE 101 mmol/L (98-107); CO2 36 mmol/L (21-32); CREATININE 0.6 mg/dL (0.55-1.3); GLUCOSE,RANDOM 224 mg/dL (74-106); MAGNESIUM 2.4 mg/dL (1.8-2.4); POTASSIUM 3.5 mmol/L (3.5-5.1); SGOT/AST 37 U/L (15-37); SGPT/ALT 90 U/L (13-61); SODIUM 144 mmol/L (136-145); TOT PROT 5.1 g/dl (6.4-8.2)
[2018-08-07] MEDS ORDERED: cefTRIAXone SODIUM 1 GM VIAL ONE (09:39)
[2018-08-07] MEDS ORDERED: DEXTROSE 5%-WATER - 50 ML IVPB ONE (09:40)
--- NOTE | 2018-08-07 09:41 | PN ---
Progress Note, Physician Chief Complaint: ANXIOUS, CRYOING; ON O2 NC now but was on Bipap earlier dry cough, no CP; afebrile; no bleed - Current Medication List Current Medications: Active Medications Acetaminophen (Tylenol -) 650 mg PO Q6H PRN PRN Reason: PAIN Albuterol Sulfate (Ventolin 0.083% Nebulizer Soln -) 1 amp NEB Q4H PRN PRN Reason: SHORT OF BREATH/WHEEZING Albuterol/Ipratropium (Duoneb -) 1 amp NEB RQ4H [facility] Last Admin: 08/07/18 08:07 Dose: 1 amp Alprazolam (Xanax -) 0.25 mg PO Q8H PRN PRN Reason: ANXIETY Last Admin: 08/06/18 21:32 Dose: 0.25 mg Budesonide/Formoterol Fumarate (Symbicort 80/4.5mcg -) 2 puff IH BID [facility] Last Admin: 08/06/18 21:36 Dose: 2 puff Diltiazem HCl (Cardizem -) 30 mg PO TID [facility] Last Admin: 08/07/18 05:56 Dose: 30 mg Gabapentin (Neurontin -) 100 mg PO DAILY [facility] Last Admin: 08/06/18 10:00 Dose: 100 mg Guaifenesin (Mucinex -) 600 mg PO BID [facility] Last Admin: 08/06/18 21:30 Dose: 600 mg Guaifenesin (Robitussin -) 10 ml PO Q6H PRN PRN Reason: COUGH Azithromycin (Zithromax 500mg Ivpb (Pre-Docked)) 500 mg in 250 mls @ 250 mls/ hr IVPB DAILY [facility] Last Admin: 08/06/18 09:59 Dose: 250 mls/hr Ceftriaxone Sodium 1 gm/ (Dextrose) 50 mls @ 100 mls/hr IVPB DAILY [facility] Last Admin: 08/06/18 09:59 Dose: 100 mls/hr Dextrose (D5w -) 1,000 mls @ 60 mls/hr IV ASDIR [facility] Last Admin: 08/06/18 13:35 Dose: 60 mls/hr Insulin Aspart (Novolog Vial Sliding Scale -) 1 vial SQ ACHS [facility]; Protocol Last Admin: 08/07/18 06:26 Dose: 4 units Lactobacillus Acidophilus (Bacid -) 1 tab PO DAILY [facility] Last Admin: 08/06/18 10:01 Dose: 1 tab Methylprednisolone Sodium Succinate (Solu-Medrol -) 40 mg IVPUSH Q6H-IV [facility] Last Admin: 08/07/18 02:39 Dose: 40 mg Metoprolol Tartrate (Lopressor Injection -) 5 mg IVPUSH Q4H PRN PRN Reason: HYPERTENSION Last Admin: 07/31/18 17:24 Dose: 5 mg Metoprolol Tartrate (Lopressor -) 25 mg PO BID [facility] Last Admin: 08/06/18 21:30 Dose: 25 mg Multivitamins/Minerals/Vitamin C (Tab-A-Vit -) 1 tab PO DAILY [facility] Last Admin: 08/06/18 10:00 Dose: 1 tab Pantoprazole Sodium (Protonix Iv) 40 mg IVPUSH DAILY [facility] Last Admin: 08/06/18 10:00 Dose: 40 mg Potassium Chloride (K-Dur -) 20 meq PO DAILY [facility] Last Admin: 08/06/18 10:01 Dose: 20 meq Ranitidine HCl (Zantac -) 150 mg PO DAILY [facility] Last Admin: 08/06/18 10:00 Dose: 150 mg Rosuvastatin Calcium (Crestor -) 20 mg PO HS [facility] Last Admin: 08/06/18 21:30 Dose: 20 mg - Objective Vital Signs: Vital Signs Temperature 96.9 F L 08/07/18 05:54 Pulse Rate 76 08/07/18 05:54 Respiratory Rate 22 H 08/07/18 05:54 Blood Pressure 151/71 08/07/18 05:54 O2 Sat by Pulse Oximetry (%) 98 08/07/18 08:06 Constitutional: Yes: Anxious Eyes: Yes: Conjunctiva Clear HENT: Yes: Atraumatic Neck: Yes: Supple Cardiovascular: Yes: Regular Rate and Rhythm Respiratory: Yes: Rales, Rhonchi Gastrointestinal: Yes: Soft. No: Tenderness Genitourinary: No: CVA Tenderness - Left, CVA Tenderness - Right, Hematuria Musculoskeletal: No: Joint Stiffness, Joint Swelling Extremities: No: Cold, Cool, Cyanosis Edema: No Integumentary: Yes: Bruising. No: Rash, Venous Stasis Changes Neurological: Yes: Alert, Oriented ...Motor Strength: WNL Psychiatric: Yes: Alert, Oriented. No: Agitated, Suicidal Ideation Labs: CBC, BMP 08/07/18 06:50 08/07/18 06:50 INR, PTT INR 1.01 (0.83-1.09) 07/08/18 16:43 - ....Imaging Other: Report Reviewed Assessment/Plan The patient is an 82 year old female with a PMH of COPD (on 2L), Stage 3a NSCC ( currently on radiation), CAD s/p MO (s/p cardiac stent x3), HTN, HLD \admitted with acute onset of shortness of breath, acute on chronic COPD exac and bronchitis, new L sided PNA and metastatic ds lung, liver bones; borderline + troponins h/o ASHD stent, high BNP h/o CHF low EF, s/p hemoptysis and low GIB; new onset rapid AFib, low Platelets and anemia - s/p 2 U PRBC and sq lovenox stopped. GI input noted HyperNatremia improved f/u labs and CXR iv steroids, nebs, O2 and iv antibiotics IV PPI; IV Half saline BGM, sq insulin prn PULM, Cardiology f/u HR control; ONC f/u falls PFX, gastric, DVT aspiration PFX; turn q1-2h in bed; air mattress d/w staff prognosis guarded might need ventilatory support if respiratory status worsens d /w pt advanced directives but pt anxious does not want to talk about it now d/w pt and staff
[2018-08-07] MEDS: AZITHROMYCIN IVPB 500 MG/250 ML BAG IVPB SCH (09:51)
[2018-08-07] MEDS: GABAPENTIN 100 MG CAPSULE (FP) PO SCH (09:51)
[2018-08-07] MEDS: METOPROLOL TARTRATE 25 MG TABLET (FP) PO SCH ×2 (09:51→22:47)
[2018-08-07] MEDS: guaiFENesin 600 MG TABLET.ER (FP) PO SCH ×2 (09:51→22:47)
[2018-08-07] MEDS: PANTOPRAZOLE SODIUM 40 MG VIAL IVPUSH SCH (09:51)
[2018-08-07] MEDS: CEFTRIAXONE 1 GM in DEXTROSE 5%-WATER - 50 ML IVPB SCH (09:51)
[2018-08-07] MEDS: POTASSIUM CHLORIDE TABS 20 MEQ TABLET.ER (FP) PO SCH (09:52)
[2018-08-07] MEDS: LACTOBACILLUS ACIDOPHILUS 1 TABLET PO SCH (09:52)
[2018-08-07] MEDS: RANITIDINE HCL 150 MG TABLET (FP) PO SCH (09:52)
[2018-08-07] MEDS: MULTIVITAMINS (DAILY MVI) TABLET (FP) PO SCH (09:52)
[2018-08-07] MEDS: BUDESONIDE/FORMETEROL FUMARATE 80/4.5 mcg INHALER IH SCH ×2 (09:53→22:48)
--- NOTE | 2018-08-07 10:36 | PN ---
Progress Note, Physician History of Present Illness: pulmonary alert,dyspneic on naal cannula - Current Medication List Current Medications: Active Medications Acetaminophen (Tylenol -) 650 mg PO Q6H PRN PRN Reason: PAIN Albuterol Sulfate (Ventolin 0.083% Nebulizer Soln -) 1 amp NEB Q4H PRN PRN Reason: SHORT OF BREATH/WHEEZING Albuterol/Ipratropium (Duoneb -) 1 amp NEB RQ4H [facility] Last Admin: 08/07/18 08:07 Dose: 1 amp Alprazolam (Xanax -) 0.25 mg PO Q8H PRN PRN Reason: ANXIETY Last Admin: 08/06/18 21:32 Dose: 0.25 mg Budesonide/Formoterol Fumarate (Symbicort 80/4.5mcg -) 2 puff IH BID [facility] Last Admin: 08/07/18 09:53 Dose: 2 puff Diltiazem HCl (Cardizem -) 30 mg PO TID [facility] Last Admin: 08/07/18 05:56 Dose: 30 mg Gabapentin (Neurontin -) 100 mg PO DAILY [facility] Last Admin: 08/07/18 09:51 Dose: 100 mg Guaifenesin (Mucinex -) 600 mg PO BID [facility] Last Admin: 08/07/18 09:51 Dose: 600 mg Guaifenesin (Robitussin -) 10 ml PO Q6H PRN PRN Reason: COUGH Azithromycin (Zithromax 500mg Ivpb (Pre-Docked)) 500 mg in 250 mls @ 250 mls/ hr IVPB DAILY [facility] Last Admin: 08/07/18 09:51 Dose: 250 mls/hr Ceftriaxone Sodium 1 gm/ (Dextrose) 50 mls @ 100 mls/hr IVPB DAILY [facility] Last Admin: 08/07/18 09:51 Dose: 100 mls/hr Dextrose (D5w -) 1,000 mls @ 60 mls/hr IV ASDIR [facility] Last Admin: 08/06/18 13:35 Dose: 60 mls/hr Insulin Aspart (Novolog Vial Sliding Scale -) 1 vial SQ ACHS [facility]; Protocol Last Admin: 08/07/18 06:26 Dose: 4 units Lactobacillus Acidophilus (Bacid -) 1 tab PO DAILY [facility] Last Admin: 08/07/18 09:52 Dose: 1 tab Methylprednisolone Sodium Succinate (Solu-Medrol -) 40 mg IVPUSH Q6H-IV [facility] Last Admin: 08/07/18 09:51 Dose: 40 mg Metoprolol Tartrate (Lopressor Injection -) 5 mg IVPUSH Q4H PRN PRN Reason: HYPERTENSION Last Admin: 07/31/18 17:24 Dose: 5 mg Metoprolol Tartrate (Lopressor -) 25 mg PO BID [facility] Last Admin: 08/07/18 09:51 Dose: 25 mg Multivitamins/Minerals/Vitamin C (Tab-A-Vit -) 1 tab PO DAILY [facility] Last Admin: 08/07/18 09:52 Dose: 1 tab Pantoprazole Sodium (Protonix Iv) 40 mg IVPUSH DAILY [facility] Last Admin: 08/07/18 09:51 Dose: 40 mg Potassium Chloride (K-Dur -) 20 meq PO DAILY [facility] Last Admin: 08/07/18 09:52 Dose: 20 meq Ranitidine HCl (Zantac -) 150 mg PO DAILY [facility] Last Admin: 08/07/18 09:52 Dose: 150 mg Rosuvastatin Calcium (Crestor -) 20 mg PO HS [facility] Last Admin: 08/06/18 21:30 Dose: 20 mg - Objective Vital Signs: Vital Signs Temperature 96.9 F L 08/07/18 05:54 Pulse Rate 76 08/07/18 05:54 Respiratory Rate 22 H 08/07/18 05:54 Blood Pressure 151/71 08/07/18 05:54 O2 Sat by Pulse Oximetry (%) 98 08/07/18 08:06 Constitutional: Yes: Thin, Other (dyspneic) Eyes: Yes: WNL HENT: Yes: WNL Neck: Yes: WNL Cardiovascular: Yes: Pulse Irregular, S1, S2 Respiratory: Yes: Diminished, Rales (few crackles) Gastrointestinal: Yes: Normal Bowel Sounds, Soft Extremities: Yes: WNL Edema: No Labs: CBC, BMP 08/07/18 06:50 08/07/18 06:50 INR, PTT INR 1.01 (0.83-1.09) 07/08/18 16:43 Assessment/Plan Problem List - Problems (1) Adenocarcinoma, lung Code(s): C34.90 - MALIGNANT NEOPLASM OF UNSP PART OF UNSP BRONCHUS OR LUNG (2) ASHD (arteriosclerotic heart disease) Code(s): I25.10 - ATHSCL HEART DISEASE OF [place] CORONARY ARTERY W/O ANG PCTRS (3) Anxiety and depression Code(s): F41.9 - ANXIETY DISORDER, UNSPECIFIED; F32.9 - MAJOR DEPRESSIVE DISORDER, SINGLE EPISODE, UNSPECIFIED (4) COPD (chronic obstructive pulmonary disease) Code(s): J44.9 - CHRONIC OBSTRUCTIVE PULMONARY DISEASE, UNSPECIFIED Qualifiers: COPD type: unspecified COPD Qualified Code(s): J44.9 - Chronic obstructive pulmonary disease, unspecified (5) COPD exacerbation Code(s): J44.1 - CHRONIC OBSTRUCTIVE PULMONARY DISEASE W (ACUTE) EXACERBATION (6) Cough Code(s): R05 - COUGH (7) Diastolic CHF Code(s): I50.30 - UNSPECIFIED DIASTOLIC (CONGESTIVE) HEART FAILURE (8) HTN (hypertension) Code(s): I10 - ESSENTIAL (PRIMARY) HYPERTENSION (9) Hyperlipidemia Code(s): E78.5 - HYPERLIPIDEMIA, UNSPECIFIED (10) Hypothyroid Code(s): E03.9 - HYPOTHYROIDISM, UNSPECIFIED (11) Shortness of breath Code(s): R06.02 - SHORTNESS OF BREATH 12 HYPERNATREMIA A/P Acute COPD Exacerbation s/p RT session NSCLC - Adenocarcinoma mets to rib/liver LV Diastolic Dysfunction AFIB HTN Hypothyroidism Hyperlipidemia - medrol same dose - inhaled bronchodilators - on empiric antibiotics - rehab/PT - DVT prophylaxis - continue bipap ,O2 - D5W - monitor lytes,na - AC DR CARDOSO
--- NOTE | 2018-08-07 11:43 | PN ---
Progress Note (short form) - Note Progress Note: Renal follow up for Hypernatremia Pt seen and examined at the bedside awake and alert on BIPAP has been requiring bipap throughout the day no pain Vital Signs Temperature 98.0 F 08/07/18 10:00 Pulse Rate 72 08/07/18 10:00 Respiratory Rate 18 08/07/18 10:00 Blood Pressure 145/66 08/07/18 10:00 O2 Sat by Pulse Oximetry (%) 96 08/07/18 11:30 Intake & Output 08/04/18 08/05/18 08/06/18 08/07/18 23:59 23:59 23:59 23:59 Intake Total 1440 1697 1830 1050 Balance 1440 1697 1830 1050 NAD awake and alert Dec BS no Le edema CBC, BMP 08/07/18 06:50 08/07/18 06:50 Current Medications Acetaminophen (Tylenol -) 650 mg PO Q6H PRN PRN Reason: PAIN Albuterol Sulfate (Ventolin 0.083% Nebulizer Soln -) 1 amp NEB Q4H PRN PRN Reason: SHORT OF BREATH/WHEEZING Albuterol/Ipratropium (Duoneb -) 1 amp NEB RQ4H [facility] Last Admin: 08/07/18 11:29 Dose: 1 amp Alprazolam (Xanax -) 0.25 mg PO Q8H PRN PRN Reason: ANXIETY Last Admin: 08/06/18 21:32 Dose: 0.25 mg Budesonide/Formoterol Fumarate (Symbicort 80/4.5mcg -) 2 puff IH BID [facility] Last Admin: 08/07/18 09:53 Dose: 2 puff Diltiazem HCl (Cardizem -) 30 mg PO TID [facility] Last Admin: 08/07/18 05:56 Dose: 30 mg Gabapentin (Neurontin -) 100 mg PO DAILY [facility] Last Admin: 08/07/18 09:51 Dose: 100 mg Guaifenesin (Mucinex -) 600 mg PO BID [facility] Last Admin: 08/07/18 09:51 Dose: 600 mg Guaifenesin (Robitussin -) 10 ml PO Q6H PRN PRN Reason: COUGH Azithromycin (Zithromax 500mg Ivpb (Pre-Docked)) 500 mg in 250 mls @ 250 mls/ hr IVPB DAILY [facility] Last Admin: 08/07/18 09:51 Dose: 250 mls/hr Ceftriaxone Sodium 1 gm/ (Dextrose) 50 mls @ 100 mls/hr IVPB DAILY [facility] Last Admin: 08/07/18 09:51 Dose: 100 mls/hr Dextrose (D5w -) 1,000 mls @ 60 mls/hr IV ASDIR [facility] Last Admin: 08/06/18 13:35 Dose: 60 mls/hr Insulin Aspart (Novolog Vial Sliding Scale -) 1 vial SQ ACHS [facility]; Protocol Last Admin: 08/07/18 06:26 Dose: 4 units Lactobacillus Acidophilus (Bacid -) 1 tab PO DAILY [facility] Last Admin: 08/07/18 09:52 Dose: 1 tab Methylprednisolone Sodium Succinate (Solu-Medrol -) 40 mg IVPUSH Q6H-IV [facility] Last Admin: 08/07/18 09:51 Dose: 40 mg Metoprolol Tartrate (Lopressor Injection -) 5 mg IVPUSH Q4H PRN PRN Reason: HYPERTENSION Last Admin: 07/31/18 17:24 Dose: 5 mg Metoprolol Tartrate (Lopressor -) 25 mg PO BID [facility] Last Admin: 08/07/18 09:51 Dose: 25 mg Multivitamins/Minerals/Vitamin C (Tab-A-Vit -) 1 tab PO DAILY [facility] Last Admin: 08/07/18 09:52 Dose: 1 tab Pantoprazole Sodium (Protonix Iv) 40 mg IVPUSH DAILY [facility] Last Admin: 08/07/18 09:51 Dose: 40 mg Potassium Chloride (K-Dur -) 20 meq PO DAILY [facility] Last Admin: 08/07/18 09:52 Dose: 20 meq Ranitidine HCl (Zantac -) 150 mg PO DAILY [facility] Last Admin: 08/07/18 09:52 Dose: 150 mg Rosuvastatin Calcium (Crestor -) 20 mg PO HS [facility] Last Admin: 08/06/18 21:30 Dose: 20 mg 82 yr old female with recently dx'd with lung adenocarcinoma, COPD on home O2 @ 2L, HTN, HLD, ACS s/p myocardial infarction x 2, brought in post-RT treatment due to trouble breathing with respiraotory failure and progressive hypernatremia #Hypernatremia (water deficit ~3L) #Hypoxia #Hypokalemia #PNA #COPD #Adenocarcinoma of the Lung Serum Na now improved to normal limits will maintain on lower rate of D5W as pt has poor oral intake can given PRN lasix if concern for chest congestion/fluid overload oral water intake as tolerated continue supplemental O2/BIPAP as needed supplement K, trend Mg levels at goal trend renal function and electrolytes daily Stan Harrison DO
--- NOTE | 2018-08-07 11:59 | PN ---
Progress Note, Physician History of Present Illness: The patient is an 82 year old white female with a PMH of COPD (on 2L), Stage 3a NSCC lung cancer (currently on radiation), CAD s/p [place] (s/p cardiac stent x3), HTN, HLD was BIBEMS for acute onset of shortness of breath. Patient was completing her first radiation treatment today when she suddenly became short of breath. Denies chest pain, lightheadedness, nausea, diaphoresis. Grandson @ bedside assists in history, notes patient has been taking her Albuterol inhaler multiple times daily. Recent medication addition of Symbicort to her daily regimen. History limited as patient tachycardic, tachypneic @ presentation. NKDA Surgical: Cardiac Stent x3, lung biopsy PMD: Dr. Mary Beth Stein Cardiology: Dr. Bah Pulmonology: Dr. Kern/Dr. Velazquez - Current Medication List Current Medications: Active Medications Acetaminophen (Tylenol -) 650 mg PO Q6H PRN PRN Reason: PAIN Albuterol Sulfate (Ventolin 0.083% Nebulizer Soln -) 1 amp NEB Q4H PRN PRN Reason: SHORT OF BREATH/WHEEZING Albuterol/Ipratropium (Duoneb -) 1 amp NEB RQ4H [facility] Last Admin: 08/07/18 11:29 Dose: 1 amp Alprazolam (Xanax -) 0.25 mg PO Q8H PRN PRN Reason: ANXIETY Last Admin: 08/06/18 21:32 Dose: 0.25 mg Budesonide/Formoterol Fumarate (Symbicort 80/4.5mcg -) 2 puff IH BID [facility] Last Admin: 08/07/18 09:53 Dose: 2 puff Diltiazem HCl (Cardizem -) 30 mg PO TID [facility] Last Admin: 08/07/18 05:56 Dose: 30 mg Gabapentin (Neurontin -) 100 mg PO DAILY [facility] Last Admin: 08/07/18 09:51 Dose: 100 mg Guaifenesin (Mucinex -) 600 mg PO BID [facility] Last Admin: 08/07/18 09:51 Dose: 600 mg Guaifenesin (Robitussin -) 10 ml PO Q6H PRN PRN Reason: COUGH Azithromycin (Zithromax 500mg Ivpb (Pre-Docked)) 500 mg in 250 mls @ 250 mls/ hr IVPB DAILY [facility] Last Admin: 08/07/18 09:51 Dose: 250 mls/hr Ceftriaxone Sodium 1 gm/ (Dextrose) 50 mls @ 100 mls/hr IVPB DAILY [facility] Last Admin: 08/07/18 09:51 Dose: 100 mls/hr Dextrose (D5w -) 1,000 mls @ 60 mls/hr IV ASDIR [facility] Last Admin: 08/06/18 13:35 Dose: 60 mls/hr Insulin Aspart (Novolog Vial Sliding Scale -) 1 vial SQ ACHS [facility]; Protocol Last Admin: 08/07/18 06:26 Dose: 4 units Lactobacillus Acidophilus (Bacid -) 1 tab PO DAILY [facility] Last Admin: 08/07/18 09:52 Dose: 1 tab Methylprednisolone Sodium Succinate (Solu-Medrol -) 40 mg IVPUSH Q6H-IV [facility] Last Admin: 08/07/18 09:51 Dose: 40 mg Metoprolol Tartrate (Lopressor Injection -) 5 mg IVPUSH Q4H PRN PRN Reason: HYPERTENSION Last Admin: 07/31/18 17:24 Dose: 5 mg Metoprolol Tartrate (Lopressor -) 25 mg PO BID [facility] Last Admin: 08/07/18 09:51 Dose: 25 mg Multivitamins/Minerals/Vitamin C (Tab-A-Vit -) 1 tab PO DAILY [facility] Last Admin: 08/07/18 09:52 Dose: 1 tab Pantoprazole Sodium (Protonix Iv) 40 mg IVPUSH DAILY [facility] Last Admin: 08/07/18 09:51 Dose: 40 mg Potassium Chloride (K-Dur -) 20 meq PO DAILY [facility] Last Admin: 08/07/18 09:52 Dose: 20 meq Ranitidine HCl (Zantac -) 150 mg PO DAILY [facility] Last Admin: 08/07/18 09:52 Dose: 150 mg Rosuvastatin Calcium (Crestor -) 20 mg PO HS [facility] Last Admin: 08/06/18 21:30 Dose: 20 mg - Objective Vital Signs: Vital Signs Temperature 98.0 F 08/07/18 10:00 Pulse Rate 72 08/07/18 10:00 Respiratory Rate 18 08/07/18 10:00 Blood Pressure 145/66 08/07/18 10:00 O2 Sat by Pulse Oximetry (%) 96 08/07/18 11:30 Eyes: Yes: WNL, Conjunctiva Clear, EOM Intact HENT: Yes: WNL, Atraumatic, Normocephalic Neck: Yes: WNL, Supple, Trachea Midline Cardiovascular: Yes: Pulse Irregular, S1, S2 Respiratory: Yes: Diminished Gastrointestinal: Yes: WNL, Normal Bowel Sounds Genitourinary: Yes: WNL Musculoskeletal: Yes: WNL Extremities: Yes: WNL Edema: No Integumentary: Yes: WNL Neurological: Yes: WNL, Alert, Oriented ...Motor Strength: WNL Psychiatric: Yes: WNL Labs: CBC, BMP 08/07/18 06:50 08/07/18 06:50 INR, PTT INR 1.01 (0.83-1.09) 07/08/18 16:43 Assessment/Plan - Problems (1) Elevated troponin I level Assessment/Plan: 0.02-->0.21-->0.19; normal CK EKG: PAF, periods of RVR. Pt likely has demand ischemia from exacerbation of COPD, diastolic CHF, CA, tachycardia. Given pt's advanced lung CA, would recommend conservative management of cardiac condition (she is on metoprolol, diltiazem, statin, ASA, Lovenox) Code(s): R74.8 - ABNORMAL LEVELS OF OTHER SERUM ENZYMES (2) Adenocarcinoma, lung Assessment/Plan: Advanced CA, with bone and liver metastases. F/u with hem/onc. Code(s): C34.90 - MALIGNANT NEOPLASM OF UNSP PART OF UNSP BRONCHUS OR LUNG (3) Shortness of breath Assessment/Plan: Deteriorating pulmonary status. Code(s): R06.02 - SHORTNESS OF BREATH (4) HTN (hypertension) Assessment/Plan: On metoprolol, diltiazem, and furosemide. Code(s): I10 - ESSENTIAL (PRIMARY) HYPERTENSION (5) Hyperlipidemia Assessment/Plan: on statin Code(s): E78.5 - HYPERLIPIDEMIA, UNSPECIFIED (6) Acute on chronic diastolic CHF (congestive heart failure) Assessment/Plan: On metoprolol, diltiazem, and Furosemide f/u BUn/Cr, electrolytes, daily weight, Is and Os. Code(s): I50.33 - ACUTE ON CHRONIC DIASTOLIC (CONGESTIVE) HEART FAILURE (7) Atrial fibrillation Assessment/Plan: On metoprolol and diltiazem for HR control. Now in sinus rhythm; f/u BP. Lovenox discontinued due to platetlets < 50,000, anemia-->PRBCs, hematuria. Replete K+, and follow all electrolytes. Code(s): I48.91 - UNSPECIFIED ATRIAL FIBRILLATION (8) Hypokalemia Assessment/Plan: replete, and keep K+ 4.0-4.5. Keep Mg 2.0-2.4 Keep PO4 2.5-4.9. Code(s): E87.6 - HYPOKALEMIA
[2018-08-07 12:14] LABS: ANISOCYTOSIS 0; MACROCYTOSIS 0; PLATELET ESTIMATE DECREASED
[2018-08-07] MEDS: DEXTROSE 5%-WATER - 1,000 ML IV SCH (14:10)
--- NOTE | 2018-08-07 17:37 | PN ---
Progress Note (short form) - Note Progress Note: Patient seen and examined Little change clinically On BIPAP Denies chest pain Last Vital Signs Temp Pulse Resp BP Pulse Ox 98.2 F 74 24 H 138/69 95 08/07/18 14:16 08/07/18 14:16 08/07/18 14:16 08/07/18 14:16 08/07/18 15:44 HEENT: KEIRY, EOM Intact Cor: RSR, No murmurs, No gallops Lungs: diminished breath sounds Abd: Soft, Normal bowel sounds, No organomegaly Ext:No significant edema Skin: No rashes, Integument intact CBC, BMP 08/07/18 06:50 08/07/18 06:50 Current Medications Generic Name Dose Route Start Last Admin Trade Name Freq PRN Reason Stop Dose Admin Acetaminophen 650 mg 08/03/18 08:32 Tylenol - PO Q6H PRN PAIN Albuterol Sulfate 1 amp 08/01/18 12:27 Ventolin 0.083% Nebulizer Soln - NEB Q4H PRN SHORT OF BREATH/WHEEZING Albuterol/Ipratropium 1 amp 08/01/18 16:00 08/07/18 15:45 Duoneb - NEB 1 amp RQ4H JOHN Administration Alprazolam 0.25 mg 08/03/18 08:32 08/06/18 21:32 Xanax - PO 0.25 mg Q8H PRN Administration ANXIETY Budesonide/Formoterol Fumarate 2 puff 08/03/18 10:00 08/07/18 09:53 Symbicort 80/4.5mcg - IH 2 puff BID JOHN Administration Diltiazem HCl 30 mg 07/31/18 00:45 08/07/18 14:10 Cardizem - PO 30 mg TID JOHN Administration Gabapentin 100 mg 08/03/18 10:00 08/07/18 09:51 Neurontin - PO 100 mg DAILY JOHN Administration Guaifenesin 600 mg 07/28/18 10:00 08/07/18 09:51 Mucinex - PO 600 mg BID JOHN Administration Guaifenesin 10 ml 08/03/18 08:32 Robitussin - PO Q6H PRN COUGH Azithromycin 500 mg in 250 mls @ 250 mls/hr 07/29/18 10:00 08/07/18 09:51 Zithromax 500mg Ivpb (Pre-Docked) IVPB 250 mls/hr DAILY JOHN Administration Ceftriaxone Sodium 1 gm/ 50 mls @ 100 mls/hr 07/29/18 10:00 08/07/18 09:51 Dextrose IVPB 100 mls/hr DAILY JOHN Administration Dextrose 1,000 mls @ 60 mls/hr 08/06/18 13:30 08/07/18 14:10 D5w - IV Not Given ASDIR JOHN Insulin Aspart 1 vial 07/30/18 16:30 08/07/18 12:37 Novolog Vial Sliding Scale - SQ 6 units ACHS JOHN Administration Protocol Lactobacillus Acidophilus 1 tab 07/29/18 10:00 08/07/18 09:52 Bacid - PO 1 tab DAILY JOHN Administration Methylprednisolone Sodium Succinate 40 mg 08/03/18 09:00 08/07/18 15:29 Solu-Medrol - IVPUSH 40 mg Q6H-IV JOHN Administration Metoprolol Tartrate 5 mg 07/30/18 22:52 07/31/18 17:24 Lopressor Injection - IVPUSH 5 mg Q4H PRN Administration HYPERTENSION Metoprolol Tartrate 25 mg 08/03/18 10:00 08/07/18 09:51 Lopressor - PO 25 mg BID JOHN Administration Multivitamins/Minerals/Vitamin C 1 tab 08/06/18 10:00 08/07/18 09:52 Tab-A-Vit - PO 1 tab DAILY JOHN Administration Pantoprazole Sodium 40 mg 08/03/18 10:00 08/07/18 09:51 Protonix Iv IVPUSH 40 mg DAILY JOHN Administration Potassium Chloride 20 meq 08/04/18 12:00 08/07/18 09:52 K-Dur - PO 20 meq DAILY JOHN Administration Ranitidine HCl 150 mg 08/03/18 10:00 08/07/18 09:52 Zantac - PO 150 mg DAILY JOHN Administration Rosuvastatin Calcium 20 mg 08/03/18 22:00 08/06/18 21:30 Crestor - PO 20 mg HS JOHN Administration Impression: [place]en[place] of lung liver mets thrombocytopenia 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 occult infection, ? liver disease,? HIT ,? other Plan: ROSA MARIA Hold a/c
[2018-08-07] MEDS: ROSUVASTATIN CA 20 MG TABLET (FP) PO SCH (22:47)
[2018-08-07] MEDS: ALPRAZolam 0.25 MG TABLET PO PRN (22:47)
[2018-08-08] MEDS: ALBUTEROL SO4 2.5/IPRATROPIUM 0.5 INH SOL 3 ML VIAL.NEB. NEB SCH ×6 (00:10→20:48)
[2018-08-08] MEDS: methylPREDNISolone NA SUCC 40 MG/1 ML VIAL IVPUSH SCH ×4 (03:24→23:03)
[2018-08-08] MEDS: dilTIAZem HCL 30 MG TABLET (FP) PO SCH ×3 (07:02→23:03)
[2018-08-08] MEDS: INSULIN SLIDING SCALE (NOVOLOG) 1 VIAL SQ SCH ×4 (07:02→23:15)
[2018-08-08] MEDS ORDERED: cefTRIAXone SODIUM 1 GM VIAL ONE (07:43)
[2018-08-08] MEDS ORDERED: DEXTROSE 5%-WATER - 50 ML IVPB ONE (07:44)
[2018-08-08 08:59] LABS: ANION GAP 7 MMOL/L (8-16); BLOOD UREA NITROGEN 41 mg/dL (7-18); CALCIUM 8.2 mg/dL (8.5-10.1); CHLORIDE 96 mmol/L (98-107); CO2 35 mmol/L (21-32); CREATININE 0.5 mg/dL (0.55-1.3); GLUCOSE,RANDOM 175 mg/dL (74-106); MAGNESIUM 2.4 mg/dL (1.8-2.4); POTASSIUM 3.5 mmol/L (3.5-5.1); SODIUM 138 mmol/L (136-145)
--- NOTE | 2018-08-08 09:06 | PN ---
Progress Note, Physician Chief Complaint: chest tightness decreased po intake stage 2 sacral decusb d/w pt and staff turn in bed, sit up; air mattress, topical bacitracin - Current Medication List Current Medications: Active Medications Acetaminophen (Tylenol -) 650 mg PO Q6H PRN PRN Reason: PAIN Albuterol Sulfate (Ventolin 0.083% Nebulizer Soln -) 1 amp NEB Q4H PRN PRN Reason: SHORT OF BREATH/WHEEZING Albuterol/Ipratropium (Duoneb -) 1 amp NEB RQ4H [facility] Last Admin: 08/08/18 07:28 Dose: 1 amp Alprazolam (Xanax -) 0.25 mg PO Q8H PRN PRN Reason: ANXIETY Last Admin: 08/07/18 22:47 Dose: 0.25 mg Budesonide/Formoterol Fumarate (Symbicort 80/4.5mcg -) 2 puff IH BID [facility]CLUD[facility] Last Admin: 08/07/18 22:48 Dose: 2 puff Diltiazem HCl (Cardizem -) 30 mg PO TID [facility] Last Admin: 08/08/18 07:02 Dose: 30 mg Gabapentin (Neurontin -) 100 mg PO DAILY [facility] Last Admin: 08/07/18 09:51 Dose: 100 mg Guaifenesin (Mucinex -) 600 mg PO BID [facility] Last Admin: 08/07/18 22:47 Dose: 600 mg Guaifenesin (Robitussin -) 10 ml PO Q6H PRN PRN Reason: COUGH Azithromycin (Zithromax 500mg Ivpb (Pre-Docked)) 500 mg in 250 mls @ 250 mls/ hr IVPB DAILY [facility] Last Admin: 08/07/18 09:51 Dose: 250 mls/hr Ceftriaxone Sodium 1 gm/ (Dextrose) 50 mls @ 100 mls/hr IVPB DAILY [facility] Last Admin: 08/07/18 09:51 Dose: 100 mls/hr Dextrose (D5w -) 1,000 mls @ 60 mls/hr IV ASDIR COUNT [facility]CLUD[facility] Last Admin: 08/07/18 14:10 Dose: Not Given Insulin Aspart (Novolog Vial Sliding Scale -) 1 vial SQ ACHS [facility]; Protocol Last Admin: 08/08/18 07:02 Dose: 2 units Lactobacillus Acidophilus (Bacid -) 1 tab PO DAILY [facility] Last Admin: 02/06/19 09:52 Dose: 1 tab Methylprednisolone Sodium Succinate (Solu-Medrol -) 40 mg IVPUSH Q6H-IV [facility] Last Admin: 08/08/18 03:24 Dose: 40 mg Metoprolol Tartrate (Lopressor Injection -) 5 mg IVPUSH Q4H PRN PRN Reason: HYPERTENSION Last Admin: 07/31/18 17:24 Dose: 5 mg Metoprolol Tartrate (Lopressor -) 25 mg PO BID [facility] Last Admin: 08/07/18 22:47 Dose: 25 mg Multivitamins/Minerals/Vitamin C (Tab-A-Vit -) 1 tab PO DAILY [facility] Last Admin: 08/07/18 09:52 Dose: 1 tab Pantoprazole Sodium (Protonix Iv) 40 mg IVPUSH DAILY [facility] Last Admin: 08/07/18 09:51 Dose: 40 mg Potassium Chloride (K-Dur -) 20 meq PO DAILY [facility] Last Admin: 08/07/18 09:52 Dose: 20 meq Ranitidine HCl (Zantac -) 150 mg PO DAILY [facility] Last Admin: 08/07/18 09:52 Dose: 150 mg Rosuvastatin Calcium (Crestor -) 20 mg PO HS [facility] Last Admin: 08/07/18 22:47 Dose: 20 mg - Objective Vital Signs: Vital Signs Temperature 96.4 F L 08/08/18 02:00 Pulse Rate 72 08/08/18 06:00 Respiratory Rate 24 H 08/08/18 06:00 Blood Pressure 135/65 08/08/18 06:00 O2 Sat by Pulse Oximetry (%) 93 L 08/08/18 07:39 Constitutional: Yes: Anxious Eyes: Yes: Conjunctiva Clear HENT: Yes: Atraumatic Neck: Yes: Supple Cardiovascular: Yes: Regular Rate and Rhythm Respiratory: Yes: Rales, Rhonchi Gastrointestinal: Yes: Soft. No: Tenderness Genitourinary: No: Hematuria Musculoskeletal: No: Joint Stiffness, Joint Swelling Extremities: No: Cold, Cool, Cyanosis Edema: No Integumentary: Yes: Pressure Ulcer. No: Rash, Venous Stasis Changes Neurological: Yes: WNL, Alert, Oriented ...Motor Strength: WNL Psychiatric: Yes: WNL, Alert, Oriented. No: Agitated Labs: CBC, BMP 08/07/18 06:50 08/08/18 06:00 INR, PTT INR 1.01 (0.83-1.09) 07/08/18 16:43 - ....Imaging Other: Report Reviewed Assessment/Plan The patient is an 82 year old female with a PMH of COPD (on 2L), Stage 3a NSCC ( currently on radiation), CAD s/p [place] (s/p cardiac stent x3), HTN, HLD \admitted with acute onset of shortness of breath, acute on chronic COPD exac and bronchitis, new L sided PNA and metastatic ds lung, liver bones; borderline + troponins h/o ASHD stent, high BNP h/o CHF low EF, s/p hemoptysis and low GIB; new onset rapid AFib, low Platelets and anemia - s/p 2 U PRBC and sq lovenox stopped. GI input noted HyperNatremia improved f/u labs and CXR iv steroids, nebs, O2 and iv antibiotics IV PPI; IV Half saline BGM, sq insulin prn PULM, Cardiology f/u HR control; ONC f/u falls PFX, gastric, DVT aspiration PFX; turn q1-2h in bed; air mattress d/w staff prognosis guarded d/w pt and staff
[2018-08-08] MEDS: DEXTROSE 5%-WATER - 1,000 ML IV SCH (09:15)
[2018-08-08] MEDS: POTASSIUM CHLORIDE TABS 20 MEQ TABLET.ER (FP) PO SCH (09:27)
[2018-08-08] MEDS: ALPRAZolam 0.25 MG TABLET PO PRN ×2 (09:27→23:04)
[2018-08-08] MEDS: PANTOPRAZOLE SODIUM 40 MG VIAL IVPUSH SCH (09:27)
[2018-08-08] MEDS: RANITIDINE HCL 150 MG TABLET (FP) PO SCH (09:27)
[2018-08-08] MEDS: MULTIVITAMINS (DAILY MVI) TABLET (FP) PO SCH (09:27)
[2018-08-08] MEDS: GABAPENTIN 100 MG CAPSULE (FP) PO SCH (09:27)
[2018-08-08] MEDS: METOPROLOL TARTRATE 25 MG TABLET (FP) PO SCH ×2 (09:27→23:03)
[2018-08-08] MEDS: guaiFENesin 600 MG TABLET.ER (FP) PO SCH ×2 (09:27→23:03)
[2018-08-08] MEDS: CEFTRIAXONE 1 GM in DEXTROSE 5%-WATER - 50 ML IVPB SCH (09:28)
[2018-08-08] MEDS: AZITHROMYCIN IVPB 500 MG/250 ML BAG IVPB SCH (09:28)
[2018-08-08] MEDS: BUDESONIDE/FORMETEROL FUMARATE 80/4.5 mcg INHALER IH SCH ×2 (09:29→23:16)
[2018-08-08] MEDS: LACTOBACILLUS ACIDOPHILUS 1 TABLET PO SCH (09:31)
--- NOTE | 2018-08-08 11:31 | PN ---
Progress Note, Physician Chief Complaint: Pt A&Ox3; she says "I feel much better today; I have no pain, my back feels fine , and I'm getting more air through the mask. I'm not eating much". Moves all extremities on requrest. Still worried about her daughter. History of Present Illness: The patient is an 82 year old white female with a PMH of COPD (on 2L), Stage 3a NSCC lung cancer (currently on radiation), CAD s/p [place] (s/p cardiac stent x3), HTN, HLD was BIBEMS for acute onset of shortness of breath. Patient was completing her first radiation treatment today when she suddenly became short of breath. Denies chest pain, lightheadedness, nausea, diaphoresis. Grandson @ bedside assists in history, notes patient has been taking her Albuterol inhaler multiple times daily. Recent medication addition of Symbicort to her daily regimen. History limited as patient tachycardic, tachypneic @ presentation. NKDA Surgical: Cardiac Stent x3, lung biopsy PMD: Dr. Mary Beth Stein Cardiology: Dr. Bah Pulmonology: Dr. Kern/Dr. Velazquez - Current Medication List Current Medications: Active Medications Acetaminophen (Tylenol -) 650 mg PO Q6H PRN PRN Reason: PAIN Albuterol Sulfate (Ventolin 0.083% Nebulizer Soln -) 1 amp NEB Q4H PRN PRN Reason: SHORT OF BREATH/WHEEZING Albuterol/Ipratropium (Duoneb -) 1 amp NEB RQ4H [facility] Last Admin: 08/08/18 07:28 Dose: 1 amp Alprazolam (Xanax -) 0.25 mg PO Q8H PRN PRN Reason: ANXIETY Last Admin: 08/08/18 09:27 Dose: 0.25 mg Budesonide/Formoterol Fumarate (Symbicort 80/4.5mcg -) 2 puff IH BID [facility] Last Admin: 08/08/18 09:29 Dose: 2 puff Diltiazem HCl (Cardizem -) 30 mg PO TID [facility] Last Admin: 08/08/18 07:02 Dose: 30 mg Gabapentin (Neurontin -) 100 mg PO DAILY [facility] Last Admin: 08/08/18 09:27 Dose: 100 mg Guaifenesin (Mucinex -) 600 mg PO BID [facility] Last Admin: 08/08/18 09:27 Dose: 600 mg Guaifenesin (Robitussin -) 10 ml PO Q6H PRN PRN Reason: COUGH Dextrose (D5w -) 1,000 mls @ 60 mls/hr IV ASDIR [facility] Last Admin: 08/07/18 14:10 Dose: Not Given Insulin Aspart (Novolog Vial Sliding Scale -) 1 vial SQ ACHS [facility]; Protocol Last Admin: 08/08/18 07:02 Dose: 2 units Lactobacillus Acidophilus (Bacid -) 1 tab PO DAILY [facility] Last Admin: 08/08/18 09:31 Dose: 1 tab Methylprednisolone Sodium Succinate (Solu-Medrol -) 40 mg IVPUSH Q6H-IV [facility] Last Admin: 08/08/18 09:27 Dose: 40 mg Metoprolol Tartrate (Lopressor Injection -) 5 mg IVPUSH Q4H PRN PRN Reason: HYPERTENSION Last Admin: 07/31/18 17:24 Dose: 5 mg Metoprolol Tartrate (Lopressor -) 25 mg PO BID [facility] Last Admin: 08/08/18 09:27 Dose: 25 mg Multivitamins/Minerals/Vitamin C (Tab-A-Vit -) 1 tab PO DAILY [facility] Last Admin: 08/08/18 09:27 Dose: 1 tab Pantoprazole Sodium (Protonix Iv) 40 mg IVPUSH DAILY [facility] Last Admin: 08/08/18 09:27 Dose: 40 mg Potassium Chloride (K-Dur -) 20 meq PO DAILY [facility] Last Admin: 08/08/18 09:27 Dose: 20 meq Ranitidine HCl (Zantac -) 150 mg PO DAILY [facility] Last Admin: 08/08/18 09:27 Dose: 150 mg Rosuvastatin Calcium (Crestor -) 20 mg PO HS [facility] Last Admin: 08/07/18 22:47 Dose: 20 mg - Objective Vital Signs: Vital Signs Temperature 96.4 F L 08/08/18 02:00 Pulse Rate 72 08/08/18 06:00 Respiratory Rate 24 H 08/08/18 06:00 Blood Pressure 135/65 08/08/18 06:00 O2 Sat by Pulse Oximetry (%) 94 L 08/08/18 09:25 Constitutional: Yes: Calm Eyes: Yes: WNL HENT: Yes: WNL Neck: Yes: WNL Cardiovascular: Yes: Pulse Irregular, S1 (vafies in intensity), S2. No: Tachycardia Respiratory: Yes: Diminished, SOB, Tachypnea Gastrointestinal: Yes: Soft ...Rectal Exam: Yes: Deferred Genitourinary: No: Anuria Breast(s): Yes: WNL Musculoskeletal: Yes: Muscle Weakness Extremities: Yes: Cool Edema: No Peripheral Pulses WNL: No Peripheral Pulses: Left Doralis Pedis: 1+, Right Dorsalis Pedis: 1+ Integumentary: Yes: WNL Neurological: Yes: Alert, Oriented, Weakness Psychiatric: Yes: Alert, Oriented, Other (anxeity) Labs: CBC, BMP 08/07/18 06:50 08/08/18 06:00 INR, PTT INR 1.01 (0.83-1.09) 07/08/18 16:43 - ....Imaging Other: Image Reviewed (AF; controlled VR) Problem List - Problems (1) Elevated troponin I level Assessment/Plan: 0.02-->0.21-->0.19; normal CK EKG: PAF, periods of RVR. Pt likely has demand ischemia from exacerbation of COPD, diastolic CHF, CA, tachycardia. Given pt's advanced lung CA, would recommend conservative management of cardiac condition (she is on metoprolol, diltiazem, statin, ASA, Lovenox) Code(s): R74.8 - ABNORMAL LEVELS OF OTHER SERUM ENZYMES (2) Adenocarcinoma, lung Assessment/Plan: Advanced CA, with bone and liver metastases. F/u with hem/onc. Code(s): C34.90 - MALIGNANT NEOPLASM OF UNSP PART OF UNSP BRONCHUS OR LUNG (3) Shortness of breath Assessment/Plan: On BIpap, with periods of Ventimask use; feels more comfortable today; O2 sat > 90. F/u with tailing hand. Code(s): R06.02 - SHORTNESS OF BREATH (4) HTN (hypertension) Assessment/Plan: On metoprolol, diltiazem, and furosemide. Code(s): I10 - ESSENTIAL (PRIMARY) HYPERTENSION (5) Hyperlipidemia Assessment/Plan: on statin Code(s): E78.5 - HYPERLIPIDEMIA, UNSPECIFIED (6) Acute on chronic diastolic CHF (congestive heart failure) Assessment/Plan: On metoprolol, diltiazem, and Furosemide f/u BUn/Cr, electrolytes, daily weight, Is and Os. Code(s): I50.33 - ACUTE ON CHRONIC DIASTOLIC (CONGESTIVE) HEART FAILURE (7) Thrombocytopenia Assessment/Plan: Developed during this admission. Off ASA; platelets remain low (now in the lower 50s). Code(s): D69.6 - THROMBOCYTOPENIA, UNSPECIFIED (8) Leukocytosis Assessment/Plan: WBCs reducing; now 10.3; afebrile. F/u with hem/onc. Code(s): D72.829 - ELEVATED WHITE BLOOD CELL COUNT, UNSPECIFIED (9) Atrial fibrillation Code(s): I48.91 - UNSPECIFIED ATRIAL FIBRILLATION
--- NOTE | 2018-08-08 12:48 | PN ---
Progress Note (short form) - Note Progress Note: Renal follow up for Hypernatremia Pt seen and examined at the bedside sleeping on IVF on BIPAP Vital Signs Temperature 96.4 F L 08/08/18 02:00 Pulse Rate 72 08/08/18 06:00 Respiratory Rate 24 H 08/08/18 06:00 Blood Pressure 135/65 08/08/18 06:00 O2 Sat by Pulse Oximetry (%) 94 L 08/08/18 09:25 Intake & Output 08/05/18 08/06/18 08/07/18 08/08/18 23:59 23:59 23:59 23:59 Intake Total 1697 1830 1050 840 Balance 1697 1830 1050 840 NAD awake and alert Dec BS no Le edema CBC, BMP 08/07/18 06:50 08/08/18 06:00 Current Medications Acetaminophen (Tylenol -) 650 mg PO Q6H PRN PRN Reason: PAIN Albuterol Sulfate (Ventolin 0.083% Nebulizer Soln -) 1 amp NEB Q4H PRN PRN Reason: SHORT OF BREATH/WHEEZING Albuterol/Ipratropium (Duoneb -) 1 amp NEB RQ4H [facility] Last Admin: 08/08/18 11:37 Dose: 1 amp Alprazolam (Xanax -) 0.25 mg PO Q8H PRN PRN Reason: ANXIETY Last Admin: 08/08/18 09:27 Dose: 0.25 mg Budesonide/Formoterol Fumarate (Symbicort 80/4.5mcg -) 2 puff IH BID [facility] Last Admin: 08/08/18 09:29 Dose: 2 puff Diltiazem HCl (Cardizem -) 30 mg PO TID [facility] Last Admin: 08/08/18 07:02 Dose: 30 mg Gabapentin (Neurontin -) 100 mg PO DAILY [facility] Last Admin: 08/08/18 09:27 Dose: 100 mg Guaifenesin (Mucinex -) 600 mg PO BID [facility] Last Admin: 08/08/18 09:27 Dose: 600 mg Guaifenesin (Robitussin -) 10 ml PO Q6H PRN PRN Reason: COUGH Dextrose (D5w -) 1,000 mls @ 60 mls/hr IV ASDIR [facility] Last Admin: 02/06/19 14:10 Dose: Not Given Insulin Aspart (Novolog Vial Sliding Scale -) 1 vial SQ ACHS [facility]; Protocol Last Admin: 08/08/18 12:07 Dose: 4 units Lactobacillus Acidophilus (Bacid -) 1 tab PO DAILY [facility] Last Admin: 08/08/18 09:31 Dose: 1 tab Methylprednisolone Sodium Succinate (Solu-Medrol -) 40 mg IVPUSH Q6H-IV [facility] Last Admin: 08/08/18 09:27 Dose: 40 mg Metoprolol Tartrate (Lopressor Injection -) 5 mg IVPUSH Q4H PRN PRN Reason: HYPERTENSION Last Admin: 07/31/18 17:24 Dose: 5 mg Metoprolol Tartrate (Lopressor -) 25 mg PO BID [facility] Last Admin: 08/08/18 09:27 Dose: 25 mg Multivitamins/Minerals/Vitamin C (Tab-A-Vit -) 1 tab PO DAILY [facility] Last Admin: 08/08/18 09:27 Dose: 1 tab Pantoprazole Sodium (Protonix Iv) 40 mg IVPUSH DAILY [facility] Last Admin: 08/08/18 09:27 Dose: 40 mg Potassium Chloride (K-Dur -) 20 meq PO DAILY [facility] Last Admin: 08/08/18 09:27 Dose: 20 meq Ranitidine HCl (Zantac -) 150 mg PO DAILY [facility] Last Admin: 08/08/18 09:27 Dose: 150 mg Rosuvastatin Calcium (Crestor -) 20 mg PO HS [facility] Last Admin: 08/07/18 22:47 Dose: 20 mg 82 yr old female with recently dx'd with lung adenocarcinoma, COPD on home O2 @ 2L, HTN, HLD, ACS s/p myocardial infarction x 2, brought in post-RT treatment due to trouble breathing with respiraotory failure and progressive hypernatremia #Hypernatremia (water deficit ~3L) #Hypoxia #Hypokalemia #PNA #COPD #Adenocarcinoma of the Lung Serum Na now improved to normal limits continue D5W at 42cc per hour trend Na daily continue BIPAP support, steroids Stan Harrison DO
--- NOTE | 2018-08-08 13:33 | PN ---
Progress Note (short form) - Note Progress Note: Awake and alert on NIPPV, 40% FiO2. Reports breathing feels a little better today. Intake & Output 08/05/18 08/06/18 08/07/18 08/08/18 23:59 23:59 23:59 23:59 Intake Total 1697 1830 1050 840 Balance 1697 1830 1050 840 Last Vital Signs Temp Pulse Resp BP Pulse Ox 96.4 F L 72 24 H 135/65 94 L 08/08/18 02:00 08/08/18 06:00 08/08/18 06:00 08/08/18 06:00 08/08/18 09:25 Active Medications Acetaminophen (Tylenol -) 650 mg PO Q6H PRN PRN Reason: PAIN Albuterol Sulfate (Ventolin 0.083% Nebulizer Soln -) 1 amp NEB Q4H PRN PRN Reason: SHORT OF BREATH/WHEEZING Albuterol/Ipratropium (Duoneb -) 1 amp NEB RQ4H [facility] Last Admin: 08/08/18 11:37 Dose: 1 amp Alprazolam (Xanax -) 0.25 mg PO Q8H PRN PRN Reason: ANXIETY Last Admin: 08/08/18 09:27 Dose: 0.25 mg Budesonide/Formoterol Fumarate (Symbicort 80/4.5mcg -) 2 puff IH BID [facility] Last Admin: 08/08/18 09:29 Dose: 2 puff Diltiazem HCl (Cardizem -) 30 mg PO TID [facility] Last Admin: 08/08/18 07:02 Dose: 30 mg Gabapentin (Neurontin -) 100 mg PO DAILY [facility] Last Admin: 08/08/18 09:27 Dose: 100 mg Guaifenesin (Mucinex -) 600 mg PO BID [facility] Last Admin: 08/08/18 09:27 Dose: 600 mg Guaifenesin (Robitussin -) 10 ml PO Q6H PRN PRN Reason: COUGH Dextrose (D5w -) 1,000 mls @ 60 mls/hr IV ASDIR [facility] Last Admin: 08/07/18 14:10 Dose: Not Given Insulin Aspart (Novolog Vial Sliding Scale -) 1 vial SQ ACHS [facility]; Protocol Last Admin: 08/08/18 12:07 Dose: 4 units Lactobacillus Acidophilus (Bacid -) 1 tab PO DAILY [facility] Last Admin: 08/08/18 09:31 Dose: 1 tab Methylprednisolone Sodium Succinate (Solu-Medrol -) 40 mg IVPUSH Q6H-IV [facility] Last Admin: 08/08/18 09:27 Dose: 40 mg Metoprolol Tartrate (Lopressor Injection -) 5 mg IVPUSH Q4H PRN PRN Reason: HYPERTENSION Last Admin: 07/31/18 17:24 Dose: 5 mg Metoprolol Tartrate (Lopressor -) 25 mg PO BID [facility] Last Admin: 08/08/18 09:27 Dose: 25 mg Multivitamins/Minerals/Vitamin C (Tab-A-Vit -) 1 tab PO DAILY [facility] Last Admin: 08/08/18 09:27 Dose: 1 tab Pantoprazole Sodium (Protonix Iv) 40 mg IVPUSH DAILY [facility] Last Admin: 08/08/18 09:27 Dose: 40 mg Potassium Chloride (K-Dur -) 20 meq PO DAILY [facility] Last Admin: 08/08/18 09:27 Dose: 20 meq Ranitidine HCl (Zantac -) 150 mg PO DAILY [facility] Last Admin: 08/08/18 09:27 Dose: 150 mg Rosuvastatin Calcium (Crestor -) 20 mg PO HS [facility] Last Admin: 08/07/18 22:47 Dose: 20 mg Constitutional: Yes: NAD on NIPPV Eyes: Yes: WNL HENT: Yes: WNL Neck: Yes: WNL Cardiovascular: Yes: Pulse Irregular, S1, S2 Respiratory: Yes: Diminished at the bases, No wheezing Gastrointestinal: Yes: Normal Bowel Sounds, Soft Extremities: Yes: WNL Edema: No Labs: Laboratory Results - last 24 hr 08/04/18 08/07/18 08/07/18 10:50 17:31 21:25 Sodium Potassium Chloride Carbon Dioxide Anion Gap BUN Creatinine Creat Clearance w eGFR POC Glucometer 165 156 Random Glucose Calcium Magnesium Blood Type A POSITIVE Antibody Screen Negative Crossmatch See Detail 08/08/18 08/08/18 08/08/18 05:15 06:00 12:03 Sodium 138 Potassium 3.5 Chloride 96 L Carbon Dioxide 35 H Anion Gap 7 L BUN 41 H Creatinine 0.5 L Creat Clearance w eGFR > 60 POC Glucometer 185 211 Random Glucose 175 H Calcium 8.2 L Magnesium 2.4 Blood Type Antibody Screen Crossmatch Assessment/Plan Problem List - Problems (1) Adenocarcinoma, lung Code(s): C34.90 - MALIGNANT NEOPLASM OF UNSP PART OF UNSP BRONCHUS OR LUNG (2) ASHD (arteriosclerotic heart disease) Code(s): I25.10 - ATHSCL HEART DISEASE OF [place] CORONARY ARTERY W/O ANG PCTRS (3) Anxiety and depression Code(s): F41.9 - ANXIETY DISORDER, UNSPECIFIED; F32.9 - MAJOR DEPRESSIVE DISORDER, SINGLE EPISODE, UNSPECIFIED (4) COPD (chronic obstructive pulmonary disease) Code(s): J44.9 - CHRONIC OBSTRUCTIVE PULMONARY DISEASE, UNSPECIFIED Qualifiers: COPD type: unspecified COPD Qualified Code(s): J44.9 - Chronic obstructive pulmonary disease, unspecified (5) COPD exacerbation Code(s): J44.1 - CHRONIC OBSTRUCTIVE PULMONARY DISEASE W (ACUTE) EXACERBATION (6) Cough Code(s): R05 - COUGH (7) Diastolic CHF Code(s): I50.30 - UNSPECIFIED DIASTOLIC (CONGESTIVE) HEART FAILURE (8) HTN (hypertension) Code(s): I10 - ESSENTIAL (PRIMARY) HYPERTENSION (9) Hyperlipidemia Code(s): E78.5 - HYPERLIPIDEMIA, UNSPECIFIED (10) Hypothyroid Code(s): E03.9 - HYPOTHYROIDISM, UNSPECIFIED (11) Shortness of breath Code(s): R06.02 - SHORTNESS OF BREATH A/P Acute COPD Exacerbation s/p RT session NSCLC - Adenocarcinoma mets to rib/liver LV Diastolic Dysfunction AFIB HTN Hypothyroidism Hyperlipidemia (?) HIT - Medrol - inhaled bronchodilators - on empiric antibiotics - rehab/PT - DVT prophylaxis - NIPPV support as needed - AC - VM as tolerated Dr Carlos Problem List - Problems (1) Adenocarcinoma, lung Code(s): C34.90 - MALIGNANT NEOPLASM OF UNSP PART OF UNSP BRONCHUS OR LUNG (2) ASHD (arteriosclerotic heart disease) Code(s): I25.10 - ATHSCL HEART DISEASE OF [place] CORONARY ARTERY W/O ANG PCTRS (3) Anxiety and depression Code(s): F41.9 - ANXIETY DISORDER, UNSPECIFIED; F32.9 - MAJOR DEPRESSIVE DISORDER, SINGLE EPISODE, UNSPECIFIED (4) COPD (chronic obstructive pulmonary disease) Code(s): J44.9 - CHRONIC OBSTRUCTIVE PULMONARY DISEASE, UNSPECIFIED Qualifiers: COPD type: unspecified COPD Qualified Code(s): J44.9 - Chronic obstructive pulmonary disease, unspecified (5) COPD exacerbation Code(s): J44.1 - CHRONIC OBSTRUCTIVE PULMONARY DISEASE W (ACUTE) EXACERBATION (6) Cough Code(s): R05 - COUGH (7) Diastolic CHF Code(s): I50.30 - UNSPECIFIED DIASTOLIC (CONGESTIVE) HEART FAILURE (8) HTN (hypertension) Code(s): I10 - ESSENTIAL (PRIMARY) HYPERTENSION (9) Hyperlipidemia Code(s): E78.5 - HYPERLIPIDEMIA, UNSPECIFIED (10) Hypothyroid Code(s): E03.9 - HYPOTHYROIDISM, UNSPECIFIED (11) Shortness of breath Code(s): R06.02 - SHORTNESS OF BREATH
[2018-08-08] MEDS: ROSUVASTATIN CA 20 MG TABLET (FP) PO SCH (23:03)
[2018-08-09] MEDS: ALBUTEROL SO4 2.5/IPRATROPIUM 0.5 INH SOL 3 ML VIAL.NEB. NEB SCH ×6 (00:30→20:48)
[2018-08-09] MEDS: methylPREDNISolone NA SUCC 40 MG/1 ML VIAL IVPUSH SCH ×3 (04:32→17:51)
[2018-08-09] MEDS: dilTIAZem HCL 30 MG TABLET (FP) PO SCH ×3 (06:29→22:38)
[2018-08-09] MEDS: INSULIN SLIDING SCALE (NOVOLOG) 1 VIAL SQ SCH ×4 (06:29→22:38)
--- NOTE | 2018-08-09 06:50 | PN ---
Progress Note, Physician Chief Complaint: feels a little better, looks less dyspneic, will attempt to taper steroids from 40 mg iv q6h to q8h continue all other meds - Current Medication List Current Medications: Active Medications Acetaminophen (Tylenol -) 650 mg PO Q6H PRN PRN Reason: PAIN Albuterol Sulfate (Ventolin 0.083% Nebulizer Soln -) 1 amp NEB Q4H PRN PRN Reason: SHORT OF BREATH/WHEEZING Albuterol/Ipratropium (Duoneb -) 1 amp NEB RQ4H [facility] Last Admin: 08/09/18 03:32 Dose: 1 amp Alprazolam (Xanax -) 0.25 mg PO Q8H PRN PRN Reason: ANXIETY Last Admin: 08/08/18 23:04 Dose: 0.25 mg Budesonide/Formoterol Fumarate (Symbicort 80/4.5mcg -) 2 puff IH BID [facility] Last Admin: 08/08/18 23:16 Dose: 2 puff Diltiazem HCl (Cardizem -) 30 mg PO TID [facility] Last Admin: 08/09/18 06:29 Dose: 30 mg Gabapentin (Neurontin -) 100 mg PO DAILY [facility] Last Admin: 08/08/18 09:27 Dose: 100 mg Guaifenesin (Mucinex -) 600 mg PO BID [facility] Last Admin: 08/08/18 23:03 Dose: 600 mg Guaifenesin (Robitussin -) 10 ml PO Q6H PRN PRN Reason: COUGH Dextrose (D5w -) 1,000 mls @ 60 mls/hr IV ASDIR [facility] Last Admin: 08/08/18 09:15 Dose: 60 mls/hr Insulin Aspart (Novolog Vial Sliding Scale -) 1 vial SQ ACHS [facility]; Protocol Last Admin: 08/09/18 06:29 Dose: Not Given Lactobacillus Acidophilus (Bacid -) 1 tab PO DAILY [facility] Last Admin: 08/08/18 09:31 Dose: 1 tab Methylprednisolone Sodium Succinate (Solu-Medrol -) 40 mg IVPUSH Q6H-IV [facility] Last Admin: 08/09/18 04:32 Dose: 40 mg Metoprolol Tartrate (Lopressor Injection -) 5 mg IVPUSH Q4H PRN PRN Reason: HYPERTENSION Last Admin: 07/31/18 17:24 Dose: 5 mg Metoprolol Tartrate (Lopressor -) 25 mg PO BID [facility] Last Admin: 08/08/18 23:03 Dose: 25 mg Multivitamins/Minerals/Vitamin C (Tab-A-Vit -) 1 tab PO DAILY [facility] Last Admin: 08/08/18 09:27 Dose: 1 tab Pantoprazole Sodium (Protonix Iv) 40 mg IVPUSH DAILY [facility] Last Admin: 08/08/18 09:27 Dose: 40 mg Potassium Chloride (K-Dur -) 20 meq PO DAILY [facility] Last Admin: 08/08/18 09:27 Dose: 20 meq Ranitidine HCl (Zantac -) 150 mg PO DAILY [facility] Last Admin: 08/08/18 09:27 Dose: 150 mg Rosuvastatin Calcium (Crestor -) 20 mg PO HS [facility] Last Admin: 08/08/18 23:03 Dose: 20 mg - Objective Vital Signs: Vital Signs Temperature 97.4 F L 08/09/18 01:00 Pulse Rate 66 08/09/18 01:00 Respiratory Rate 18 08/08/18 17:00 Blood Pressure 132/62 08/09/18 01:00 O2 Sat by Pulse Oximetry (%) 95 08/09/18 03:31 Constitutional: Yes: No Distress, Calm Eyes: Yes: Conjunctiva Clear HENT: Yes: Atraumatic Neck: Yes: Supple Cardiovascular: Yes: Regular Rate and Rhythm Respiratory: Yes: Rales Gastrointestinal: Yes: Soft. No: Tenderness Genitourinary: No: Hematuria Extremities: No: Cold, Cool Edema: No Integumentary: Yes: Pressure Ulcer. No: Rash, Venous Stasis Changes Neurological: Yes: WNL, Alert, Oriented ...Motor Strength: WNL Psychiatric: Yes: WNL, Alert, Oriented. No: Agitated, Suicidal Ideation Labs: CBC, BMP 08/07/18 06:50 08/08/18 06:00 INR, PTT INR 1.01 (0.83-1.09) 07/08/18 16:43 - ....Imaging Other: Report Reviewed Assessment/Plan The patient is an 82 year old female with a PMH of COPD (on 2L), Stage 3a NSCC ( currently on radiation), CAD s/p [place] (s/p cardiac stent x3), HTN, HLD \admitted with acute onset of shortness of breath, acute on chronic COPD exac and bronchitis, new L sided PNA and metastatic ds lung, liver bones; borderline + troponins h/o ASHD stent, high BNP h/o CHF low EF, s/p hemoptysis and low GIB; new onset rapid AFib, low Platelets and anemia - s/p 2 U PRBC and sq lovenox stopped. GI input noted HyperNatremia improved f/u labs and CXR iv steroids, taper nebs, O2 BGM, sq insulin prn PULM, Cardiology f/u HR control; ONC f/u miralax prn falls PFX, gastric, DVT aspiration PFX; turn q1-2h in bed; air mattress d/w staff prognosis guarded d/w pt and staff
[2018-08-09] MEDS: LACTOBACILLUS ACIDOPHILUS 1 TABLET PO SCH (09:48)
[2018-08-09] MEDS: guaiFENesin 600 MG TABLET.ER (FP) PO SCH ×2 (09:48→22:38)
[2018-08-09] MEDS: POTASSIUM CHLORIDE TABS 20 MEQ TABLET.ER (FP) PO SCH (09:48)
[2018-08-09] MEDS: GABAPENTIN 100 MG CAPSULE (FP) PO SCH (09:48)
[2018-08-09] MEDS: BUDESONIDE/FORMETEROL FUMARATE 80/4.5 mcg INHALER IH SCH ×2 (09:48→22:50)
[2018-08-09] MEDS: MULTIVITAMINS (DAILY MVI) TABLET (FP) PO SCH (09:48)
[2018-08-09] MEDS: PANTOPRAZOLE SODIUM 40 MG VIAL IVPUSH SCH (09:48)
[2018-08-09] MEDS: METOPROLOL TARTRATE 25 MG TABLET (FP) PO SCH ×2 (09:48→22:38)
[2018-08-09] MEDS: RANITIDINE HCL 150 MG TABLET (FP) PO SCH (09:48)
--- NOTE | 2018-08-09 10:58 | PN ---
Progress Note, Physician History of Present Illness: pulmonary alert,feeling better,less dyspneic,on bipap - Current Medication List Current Medications: Active Medications Acetaminophen (Tylenol -) 650 mg PO Q6H PRN PRN Reason: PAIN Albuterol Sulfate (Ventolin 0.083% Nebulizer Soln -) 1 amp NEB Q4H PRN PRN Reason: SHORT OF BREATH/WHEEZING Albuterol/Ipratropium (Duoneb -) 1 amp NEB RQ4H [facility] Last Admin: 08/09/18 07:30 Dose: 1 amp Alprazolam (Xanax -) 0.25 mg PO Q8H PRN PRN Reason: ANXIETY Last Admin: 08/08/18 23:04 Dose: 0.25 mg Budesonide/Formoterol Fumarate (Symbicort 80/4.5mcg -) 2 puff IH BID [facility] Last Admin: 08/09/18 09:48 Dose: 2 puff Diltiazem HCl (Cardizem -) 30 mg PO TID [facility] Last Admin: 08/09/18 06:29 Dose: 30 mg Gabapentin (Neurontin -) 100 mg PO DAILY [facility] Last Admin: 08/09/18 09:48 Dose: 100 mg Guaifenesin (Mucinex -) 600 mg PO BID [facility] Last Admin: 08/09/18 09:48 Dose: 600 mg Guaifenesin (Robitussin -) 10 ml PO Q6H PRN PRN Reason: COUGH Dextrose (D5w -) 1,000 mls @ 60 mls/hr IV ASDIR [facility] Last Admin: 08/08/18 09:15 Dose: 60 mls/hr Insulin Aspart (Novolog Vial Sliding Scale -) 1 vial SQ ACHS [facility]; Protocol Last Admin: 08/09/18 06:29 Dose: Not Given Lactobacillus Acidophilus (Bacid -) 1 tab PO DAILY [facility] Last Admin: 08/09/18 09:48 Dose: 1 tab Methylprednisolone Sodium Succinate (Solu-Medrol -) 40 mg IVPUSH Q6H-IV [facility] Last Admin: 08/09/18 09:48 Dose: 40 mg Metoprolol Tartrate (Lopressor Injection -) 5 mg IVPUSH Q4H PRN PRN Reason: HYPERTENSION Last Admin: 07/31/18 17:24 Dose: 5 mg Metoprolol Tartrate (Lopressor -) 25 mg PO BID [facility] Last Admin: 08/09/18 09:48 Dose: 25 mg Multivitamins/Minerals/Vitamin C (Tab-A-Vit -) 1 tab PO DAILY [facility] Last Admin: 08/09/18 09:48 Dose: 1 tab Pantoprazole Sodium (Protonix Iv) 40 mg IVPUSH DAILY [facility] Last Admin: 08/09/18 09:48 Dose: 40 mg Potassium Chloride (K-Dur -) 20 meq PO DAILY [facility] Last Admin: 08/09/18 09:48 Dose: 20 meq Ranitidine HCl (Zantac -) 150 mg PO DAILY [facility] Last Admin: 08/09/18 09:48 Dose: 150 mg Rosuvastatin Calcium (Crestor -) 20 mg PO HS [facility] Last Admin: 08/08/18 23:03 Dose: 20 mg - Objective Vital Signs: Vital Signs Temperature 97.4 F L 08/09/18 01:00 Pulse Rate 66 08/09/18 01:00 Respiratory Rate 18 08/08/18 17:00 Blood Pressure 132/62 08/09/18 01:00 O2 Sat by Pulse Oximetry (%) 95 08/09/18 07:40 Constitutional: Yes: Calm, Thin HENT: Yes: WNL Neck: Yes: WNL Cardiovascular: Yes: Pulse Irregular, S1, S2 Respiratory: Yes: Diminished Gastrointestinal: Yes: Normal Bowel Sounds Extremities: Yes: WNL Edema: No Labs: CBC, BMP 0 Assessment/Plan Problem List - Problems (1) Adenocarcinoma, lung Code(s): C34.90 - MALIGNANT NEOPLASM OF UNSP PART OF UNSP BRONCHUS OR LUNG (2) ASHD (arteriosclerotic heart disease) Code(s): I25.10 - ATHSCL HEART DISEASE OF [place] CORONARY ARTERY W/O ANG PCTRS (3) Anxiety and depression Code(s): F41.9 - ANXIETY DISORDER, UNSPECIFIED; F32.9 - MAJOR DEPRESSIVE DISORDER, SINGLE EPISODE, UNSPECIFIED (4) COPD (chronic obstructive pulmonary disease) Code(s): J44.9 - CHRONIC OBSTRUCTIVE PULMONARY DISEASE, UNSPECIFIED Qualifiers: COPD type: unspecified COPD Qualified Code(s): J44.9 - Chronic obstructive pulmonary disease, unspecified (5) COPD exacerbation Code(s): J44.1 - CHRONIC OBSTRUCTIVE PULMONARY DISEASE W (ACUTE) EXACERBATION (6) Cough Code(s): R05 - COUGH (7) Diastolic CHF Code(s): I50.30 - UNSPECIFIED DIASTOLIC (CONGESTIVE) HEART FAILURE (8) HTN (hypertension) Code(s): I10 - ESSENTIAL (PRIMARY) HYPERTENSION (9) Hyperlipidemia Code(s): E78.5 - HYPERLIPIDEMIA, UNSPECIFIED (10) Hypothyroid Code(s): E03.9 - HYPOTHYROIDISM, UNSPECIFIED (11) Shortness of breath Code(s): R06.02 - SHORTNESS OF BREATH 12 HYPERNATREMIA A/P Acute COPD Exacerbation s/p RT session NSCLC - Adenocarcinoma mets to rib/liver LV Diastolic Dysfunction AFIB HTN Hypothyroidism Hyperlipidemia - medrol - inhaled bronchodilators - rehab/PT - DVT prophylaxis - continue bipap ,O2 - monitor marine goldstein DR
[2018-08-09] MEDS: DEXTROSE 5%-WATER - 1,000 ML IV SCH (13:25)
--- NOTE | 2018-08-09 14:47 | PN ---
Progress Note (short form) - Note Progress Note: Renal follow up for Hypernatremia Pt seen and examined at the bedside on BIPAP tolerating some of her oral diet on IVF SOB stable Vital Signs Temperature 97.9 F 08/09/18 09:00 Pulse Rate 72 08/09/18 09:00 Respiratory Rate 36 H 08/09/18 09:00 Blood Pressure 158/68 08/09/18 09:00 O2 Sat by Pulse Oximetry (%) 93 L 08/09/18 14:10 Intake & Output 08/06/18 08/07/18 08/08/18 08/09/18 23:59 23:59 23:59 23:59 Intake Total 1830 1050 840 720 Balance 1830 1050 840 720 NAD awake and alert Dec BS no Le edema CBC, BMP 08/07/18 06:50 08/08/18 06:00 Current Medications Acetaminophen (Tylenol -) 650 mg PO Q6H PRN PRN Reason: PAIN Albuterol Sulfate (Ventolin 0.083% Nebulizer Soln -) 1 amp NEB Q4H PRN PRN Reason: SHORT OF BREATH/WHEEZING Albuterol/Ipratropium (Duoneb -) 1 amp NEB RQ4H [facility] Last Admin: 08/09/18 11:35 Dose: 1 amp Alprazolam (Xanax -) 0.25 mg PO Q8H PRN PRN Reason: ANXIETY Last Admin: 08/08/18 23:04 Dose: 0.25 mg Budesonide/Formoterol Fumarate (Symbicort 80/4.5mcg -) 2 puff IH BID [facility] Last Admin: 08/09/18 09:48 Dose: 2 puff Diltiazem HCl (Cardizem -) 30 mg PO TID [facility] Last Admin: 08/09/18 13:25 Dose: 30 mg Gabapentin (Neurontin -) 100 mg PO DAILY [facility] Last Admin: 08/09/18 09:48 Dose: 100 mg Guaifenesin (Mucinex -) 600 mg PO BID [facility] Last Admin: 08/09/18 09:48 Dose: 600 mg Guaifenesin (Robitussin -) 10 ml PO Q6H PRN PRN Reason: COUGH Dextrose (D5w -) 1,000 mls @ 60 mls/hr IV ASDIR [facility] Last Admin: 08/09/18 13:25 Dose: 60 mls/hr Insulin Aspart (Novolog Vial Sliding Scale -) 1 vial SQ ACHS [facility]; Protocol Last Admin: 08/09/18 11:30 Dose: 2 units Lactobacillus Acidophilus (Bacid -) 1 tab PO DAILY [facility] Last Admin: 08/09/18 09:48 Dose: 1 tab Methylprednisolone Sodium Succinate (Solu-Medrol -) 40 mg IVPUSH Q8H-IV [facility] Metoprolol Tartrate (Lopressor Injection -) 5 mg IVPUSH Q4H PRN PRN Reason: HYPERTENSION Last Admin: 07/31/18 17:24 Dose: 5 mg Metoprolol Tartrate (Lopressor -) 25 mg PO BID [facility] Last Admin: 08/09/18 09:48 Dose: 25 mg Multivitamins/Minerals/Vitamin C (Tab-A-Vit -) 1 tab PO DAILY [facility] Last Admin: 08/09/18 09:48 Dose: 1 tab Pantoprazole Sodium (Protonix Iv) 40 mg IVPUSH DAILY [facility] Last Admin: 08/09/18 09:48 Dose: 40 mg Potassium Chloride (K-Dur -) 20 meq PO DAILY [facility] Last Admin: 08/09/18 09:48 Dose: 20 meq Ranitidine HCl (Zantac -) 150 mg PO DAILY [facility] Last Admin: 08/09/18 09:48 Dose: 150 mg Rosuvastatin Calcium (Crestor -) 20 mg PO HS [facility] Last Admin: 08/08/18 23:03 Dose: 20 mg 82 yr old female with recently dx'd with lung adenocarcinoma, COPD on home O2 @ 2L, HTN, HLD, ACS s/p myocardial infarction x 2, brought in post-RT treatment due to trouble breathing with respiraotory failure and progressive hypernatremia #Hypernatremia (water deficit ~3L) #Hypoxia #Hypokalemia #PNA #COPD #Adenocarcinoma of the Lung Serum Na improved as of yesterday will d/c IVF for now trend Na daily oral intake encouraged Stan Harrison DO
[2018-08-09] MEDS: POLYETHYLENE GLYCOL 3350 119 GM BTL PO SCH (22:38)
[2018-08-09] MEDS: ALPRAZolam 0.25 MG TABLET PO PRN (22:38)
[2018-08-09] MEDS: ROSUVASTATIN CA 20 MG TABLET (FP) PO SCH (22:38)
[2018-08-10] MEDS: ALBUTEROL SO4 2.5/IPRATROPIUM 0.5 INH SOL 3 ML VIAL.NEB. NEB SCH ×6 (00:04→21:35)
--- NOTE | 2018-08-10 00:32 | PN ---
Progress Note, Physician Chief Complaint: Pt on Bipap; denies chest pain or dyspnea; c/o constipation, and wants to use a bed carbajal. History of Present Illness: The patient is an 82 year old white female with a PMH of COPD (on 2L), Stage 3a NSCC lung cancer (currently on radiation), CAD s/p [place] (s/p cardiac stent x3), HTN, HLD was BIBEMS for acute onset of shortness of breath. Patient was completing her first radiation treatment today when she suddenly became short of breath. Denies chest pain, lightheadedness, nausea, diaphoresis. Grandson @ bedside assists in history, notes patient has been taking her Albuterol inhaler multiple times daily. Recent medication addition of Symbicort to her daily regimen. History limited as patient tachycardic, tachypneic @ presentation. NKDA Surgical: Cardiac Stent x3, lung biopsy PMD: Dr. Mary Beth Stein Cardiology: Dr. Ortiz Pulmonology: Dr. Kern/Dr. Velazquez - Current Medication List Current Medications: Active Medications Acetaminophen (Tylenol -) 650 mg PO Q6H PRN PRN Reason: PAIN Albuterol Sulfate (Ventolin 0.083% Nebulizer Soln -) 1 amp NEB Q4H PRN PRN Reason: SHORT OF BREATH/WHEEZING Albuterol/Ipratropium (Duoneb -) 1 amp NEB RQ4H [facility] Last Admin: 08/10/18 00:04 Dose: 1 amp Alprazolam (Xanax -) 0.25 mg PO Q8H PRN PRN Reason: ANXIETY Last Admin: 08/09/18 22:38 Dose: 0.25 mg Budesonide/Formoterol Fumarate (Symbicort 80/4.5mcg -) 2 puff IH BID [facility] Last Admin: 08/09/18 22:50 Dose: 2 puff Diltiazem HCl (Cardizem -) 30 mg PO TID [facility] Last Admin: 08/09/18 22:38 Dose: 30 mg Gabapentin (Neurontin -) 100 mg PO DAILY [facility] Last Admin: 08/09/18 09:48 Dose: 100 mg Guaifenesin (Mucinex -) 600 mg PO BID [facility] Last Admin: 08/09/18 22:38 Dose: 600 mg Guaifenesin (Robitussin -) 10 ml PO Q6H PRN PRN Reason: COUGH Insulin Aspart (Novolog Vial Sliding Scale -) 1 vial SQ ACHS [facility]; Protocol Last Admin: 08/09/18 22:38 Dose: Not Given Lactobacillus Acidophilus (Bacid -) 1 tab PO DAILY [facility] Last Admin: 08/09/18 09:48 Dose: 1 tab Methylprednisolone Sodium Succinate (Solu-Medrol -) 40 mg IVPUSH Q8H-IV [facility] Last Admin: 08/09/18 17:51 Dose: 40 mg Metoprolol Tartrate (Lopressor Injection -) 5 mg IVPUSH Q4H PRN PRN Reason: HYPERTENSION Last Admin: 07/31/18 17:24 Dose: 5 mg Metoprolol Tartrate (Lopressor -) 25 mg PO BID [facility] Last Admin: 08/09/18 22:38 Dose: 25 mg Multivitamins/Minerals/Vitamin C (Tab-A-Vit -) 1 tab PO DAILY [facility] Last Admin: 08/09/18 09:48 Dose: 1 tab Pantoprazole Sodium (Protonix Iv) 40 mg IVPUSH DAILY [facility] Last Admin: 08/09/18 09:48 Dose: 40 mg Polyethylene Glycol (Miralax (For Daily Use) -) 17 gm PO DAILY [facility] Last Admin: 08/09/18 22:38 Dose: 17 gm Potassium Chloride (K-Dur -) 20 meq PO DAILY [facility] Last Admin: 08/09/18 09:48 Dose: 20 meq Ranitidine HCl (Zantac -) 150 mg PO DAILY [facility] Last Admin: 08/09/18 09:48 Dose: 150 mg Rosuvastatin Calcium (Crestor -) 20 mg PO HS [facility] Last Admin: 08/09/18 22:38 Dose: 20 mg - Objective Vital Signs: Vital Signs Temperature 97.3 F L 08/09/18 22:00 Pulse Rate 68 08/09/18 22:00 Respiratory Rate 24 H 08/09/18 22:00 Blood Pressure 125/66 08/09/18 22:00 O2 Sat by Pulse Oximetry (%) 95 08/09/18 22:00 Constitutional: Yes: Anxious Eyes: Yes: WNL HENT: Yes: WNL Neck: Yes: WNL Cardiovascular: Yes: S1, S2 Respiratory: Yes: Diminished, On BiPap, SOB Gastrointestinal: Yes: Distention, Hypoactive Bowel Sounds. No: Tenderness ...Rectal Exam: Yes: Deferred Genitourinary: No: Anuria Breast(s): Yes: WNL Musculoskeletal: Yes: Muscle Weakness Extremities: Yes: Cool Edema: No Peripheral Pulses WNL: No Peripheral Pulses: Left Doralis Pedis: 1+, Right Dorsalis Pedis: 1+ Integumentary: Yes: Other Neurological: Yes: Alert, Oriented, Weakness Psychiatric: Yes: Alert, Oriented, Other (anxeity/depression) Labs: CBC, BMP 08/07/18 06:50 08/08/18 06:00 INR, PTT INR 1.01 (0.83-1.09) 07/08/18 16:43 Problem List - Problems (1) Elevated troponin I level Assessment/Plan: 0.02-->0.21-->0.19; normal CK EKG: PAF, periods of RVR. Pt likely has demand ischemia from exacerbation of COPD, diastolic CHF, CA, tachycardia. Given pt's advanced lung CA, would recommend conservative management of cardiac condition (she is on metoprolol, diltiazem, statin, ASA, Lovenox) Code(s): R74.8 - ABNORMAL LEVELS OF OTHER SERUM ENZYMES (2) Adenocarcinoma, lung Assessment/Plan: Advanced CA, with bone and liver metastases. F/u with hem/onc. Code(s): C34.90 - MALIGNANT NEOPLASM OF UNSP PART OF UNSP BRONCHUS OR LUNG (3) Shortness of breath Assessment/Plan: On IV steroids (attempt to decrease dosing), bronchodilators, O2 per choreography director. Code(s): R06.02 - SHORTNESS OF BREATH (4) HTN (hypertension) Assessment/Plan: On metoprolol, diltiazem, and furosemide. Code(s): I10 - ESSENTIAL (PRIMARY) HYPERTENSION (5) Hyperlipidemia Assessment/Plan: on statin Code(s): E78.5 - HYPERLIPIDEMIA, UNSPECIFIED (6) Acute on chronic diastolic CHF (congestive heart failure) Assessment/Plan: On metoprolol, diltiazem, and Furosemide f/u BUn/Cr, electrolytes, daily weight, Is and Os. Code(s): I50.33 - ACUTE ON CHRONIC DIASTOLIC (CONGESTIVE) HEART FAILURE (7) Thrombocytopenia Assessment/Plan: Developed during this admission. Off ASA, anticoagulants; platelets remain low. Code(s): D69.6 - THROMBOCYTOPENIA, UNSPECIFIED (8) Atrial fibrillation Assessment/Plan: On metoprolol and diltiazem HR control. Off anticoagulants and antiplatelets (thrombocytopenia; anemia-->PRBCx). Code(s): I48.91 - UNSPECIFIED ATRIAL FIBRILLATION
[2018-08-10] MEDS: methylPREDNISolone NA SUCC 40 MG/1 ML VIAL IVPUSH SCH ×3 (01:41→17:22)
[2018-08-10] MEDS: INSULIN SLIDING SCALE (NOVOLOG) 1 VIAL SQ SCH ×4 (06:43→21:51)
[2018-08-10] MEDS: dilTIAZem HCL 30 MG TABLET (FP) PO SCH ×3 (06:43→21:51)
[2018-08-10 07:03] LABS: BASO % 1.1 % (0-2.0); HEMATOCRIT 35.1 % (32.4-45.2); LYMPH % 0.7 % (8-40); MCH 30.4 pg (25.7-33.7); MCHC 34.2 g/dl (32.0-36.0); MEAN CELL VOLUME 88.7 fl (80-96); MEAN PLT VOLUME 10.7 fl (7.5-11.1); MONO % 1.2 % (3.8-10.2); PLATELET COUNT 42 K/MM3 (134-434); RBC 3.95 M/mm3 (3.60-5.2); RDW 15.3 % (11.6-15.6); WHITE BLOOD COUNT 14.1 K/mm3 (4.0-10.0)
[2018-08-10 07:26] LABS: ANION GAP 7 MMOL/L (8-16); BLOOD UREA NITROGEN 48 mg/dL (7-18); CALCIUM 8.3 mg/dL (8.5-10.1); CHLORIDE 93 mmol/L (98-107); CO2 33 mmol/L (21-32); CREATININE 0.7 mg/dL (0.55-1.3); GLUCOSE,RANDOM 126 mg/dL (74-106); MAGNESIUM 2.6 mg/dL (1.8-2.4); PHOSPHOROUS 3.5 mg/dL (2.5-4.9); POTASSIUM 4.5 mmol/L (3.5-5.1); SODIUM 132 mmol/L (136-145)
--- NOTE | 2018-08-10 08:59 | PN ---
Progress Note, Physician History of Present Illness: The patient is an 82 year old white female with a PMH of COPD (on 2L), Stage 3a NSCC lung cancer (currently on radiation), CAD s/p [place] (s/p cardiac stent x3), HTN, HLD was BIBEMS for acute onset of shortness of breath. Patient was completing her first radiation treatment today when she suddenly became short of breath. Denies chest pain, lightheadedness, nausea, diaphoresis. Grandson @ bedside assists in history, notes patient has been taking her Albuterol inhaler multiple times daily. Recent medication addition of Symbicort to her daily regimen. History limited as patient tachycardic, tachypneic @ presentation. NKDA Surgical: Cardiac Stent x3, lung biopsy PMD: Dr. Mary Beth Stein Cardiology: Dr. Bah Pulmonology: Dr. Kern/Dr. Velazquez - Current Medication List Current Medications: Active Medications Acetaminophen (Tylenol -) 650 mg PO Q6H PRN PRN Reason: PAIN Albuterol Sulfate (Ventolin 0.083% Nebulizer Soln -) 1 amp NEB Q4H PRN PRN Reason: SHORT OF BREATH/WHEEZING Albuterol/Ipratropium (Duoneb -) 1 amp NEB RQ4H [facility] Last Admin: 08/10/18 07:33 Dose: 1 amp Alprazolam (Xanax -) 0.25 mg PO Q8H PRN PRN Reason: ANXIETY Last Admin: 08/09/18 22:38 Dose: 0.25 mg Budesonide/Formoterol Fumarate (Symbicort 80/4.5mcg -) 2 puff IH BID [facility] Last Admin: 08/09/18 22:50 Dose: 2 puff Diltiazem HCl (Cardizem -) 30 mg PO TID [facility] Last Admin: 08/10/18 06:43 Dose: Not Given Gabapentin (Neurontin -) 100 mg PO DAILY [facility] Last Admin: 08/09/18 09:48 Dose: 100 mg Guaifenesin (Mucinex -) 600 mg PO BID [facility] Last Admin: 08/09/18 22:38 Dose: 600 mg Guaifenesin (Robitussin -) 10 ml PO Q6H PRN PRN Reason: COUGH Insulin Aspart (Novolog Vial Sliding Scale -) 1 vial SQ ACHS [facility]; Protocol Last Admin: 08/10/18 06:43 Dose: Not Given Lactobacillus Acidophilus (Bacid -) 1 tab PO DAILY [facility] Last Admin: 08/09/18 09:48 Dose: 1 tab Methylprednisolone Sodium Succinate (Solu-Medrol -) 40 mg IVPUSH Q8H-IV [facility] Last Admin: 08/10/18 01:41 Dose: 40 mg Metoprolol Tartrate (Lopressor Injection -) 5 mg IVPUSH Q4H PRN PRN Reason: HYPERTENSION Last Admin: 07/31/18 17:24 Dose: 5 mg Metoprolol Tartrate (Lopressor -) 25 mg PO BID [facility] Last Admin: 08/09/18 22:38 Dose: 25 mg Multivitamins/Minerals/Vitamin C (Tab-A-Vit -) 1 tab PO DAILY [facility] Last Admin: 08/09/18 09:48 Dose: 1 tab Pantoprazole Sodium (Protonix Iv) 40 mg IVPUSH DAILY [facility] Last Admin: 08/09/18 09:48 Dose: 40 mg Polyethylene Glycol (Miralax (For Daily Use) -) 17 gm PO DAILY [facility] Last Admin: 08/09/18 22:38 Dose: 17 gm Potassium Chloride (K-Dur -) 20 meq PO DAILY [facility] Last Admin: 08/09/18 09:48 Dose: 20 meq Ranitidine HCl (Zantac -) 150 mg PO DAILY [facility] Last Admin: 08/09/18 09:48 Dose: 150 mg Rosuvastatin Calcium (Crestor -) 20 mg PO HS [facility] Last Admin: 08/09/18 22:38 Dose: 20 mg - Objective Vital Signs: Vital Signs Temperature 96.1 F L 08/10/18 02:00 Pulse Rate 73 08/10/18 06:00 Respiratory Rate 20 08/10/18 06:00 Blood Pressure 142/71 08/10/18 06:00 O2 Sat by Pulse Oximetry (%) 95 08/09/18 22:00 Eyes: Yes: WNL, Conjunctiva Clear, EOM Intact HENT: Yes: WNL, Atraumatic, Normocephalic Neck: Yes: WNL, Supple, Trachea Midline Cardiovascular: Yes: WNL, Regular Rate and Rhythm Respiratory: Yes: Diminished Gastrointestinal: Yes: WNL, Normal Bowel Sounds Genitourinary: Yes: WNL Musculoskeletal: Yes: WNL Extremities: Yes: WNL Edema: No Integumentary: Yes: WNL Neurological: Yes: WNL, Alert, Oriented ...Motor Strength: WNL Psychiatric: Yes: WNL Labs: CBC, BMP 08/10/18 05:30 08/10/18 05:30 INR, PTT INR 1.01 (0.83-1.09) 07/08/18 16:43 Assessment/Plan - Problems (1) Elevated troponin I level Assessment/Plan: 0.02-->0.21-->0.19; normal CK EKG: PAF, periods of RVR. Pt likely has demand ischemia from exacerbation of COPD, diastolic CHF, CA, tachycardia. Given pt's advanced lung CA, would recommend conservative management of cardiac condition (she is on metoprolol, diltiazem, statin, ASA, Lovenox) Code(s): R74.8 - ABNORMAL LEVELS OF OTHER SERUM ENZYMES (2) Adenocarcinoma, lung Assessment/Plan: Advanced CA, with bone and liver metastases. F/u with hem/onc. Code(s): C34.90 - MALIGNANT NEOPLASM OF UNSP PART OF UNSP BRONCHUS OR LUNG (3) Shortness of breath Assessment/Plan: On IV steroids (attempt to decrease dosing), bronchodilators, O2 per creative services manager. Code(s): R06.02 - SHORTNESS OF BREATH (4) HTN (hypertension) Assessment/Plan: On metoprolol, diltiazem, and furosemide. Code(s): I10 - ESSENTIAL (PRIMARY) HYPERTENSION (5) Hyperlipidemia Assessment/Plan: on statin Code(s): E78.5 - HYPERLIPIDEMIA, UNSPECIFIED (6) Acute on chronic diastolic CHF (congestive heart failure) Assessment/Plan: On metoprolol, diltiazem, and Furosemide f/u BUn/Cr, electrolytes, daily weight, Is and Os. Code(s): I50.33 - ACUTE ON CHRONIC DIASTOLIC (CONGESTIVE) HEART FAILURE (7) Thrombocytopenia Assessment/Plan: Developed during this admission. Off ASA, anticoagulants; platelets remain low. Code(s): D69.6 - THROMBOCYTOPENIA, UNSPECIFIED (8) Atrial fibrillation Assessment/Plan: On metoprolol and diltiazem HR control. Off anticoagulants and antiplatelets (thrombocytopenia; anemia-->PRBCx). Code(s): I48.91 - UNSPECIFIED ATRIAL FIBRILLATION
--- NOTE | 2018-08-10 09:03 | PN ---
Progress Note, Physician Chief Complaint: alert awake NAD anxious; less SOB; on Bipap on/off, O2 NC back discomfort, does not get OOB, developed stage 2 sacral decubs; advised turn in bed and air mattress, d/w pt and staff - Current Medication List Current Medications: Active Medications Acetaminophen (Tylenol -) 650 mg PO Q6H PRN PRN Reason: PAIN Albuterol Sulfate (Ventolin 0.083% Nebulizer Soln -) 1 amp NEB Q4H PRN PRN Reason: SHORT OF BREATH/WHEEZING Albuterol/Ipratropium (Duoneb -) 1 amp NEB RQ4H [facility] Last Admin: 08/10/18 07:33 Dose: 1 amp Alprazolam (Xanax -) 0.25 mg PO Q8H PRN PRN Reason: ANXIETY Last Admin: 08/09/18 22:38 Dose: 0.25 mg Budesonide/Formoterol Fumarate (Symbicort 80/4.5mcg -) 2 puff IH BID [facility] Last Admin: 08/09/18 22:50 Dose: 2 puff Diltiazem HCl (Cardizem -) 30 mg PO TID [facility] Last Admin: 08/10/18 06:43 Dose: Not Given Gabapentin (Neurontin -) 100 mg PO DAILY [facility] Last Admin: 08/09/18 09:48 Dose: 100 mg Guaifenesin (Mucinex -) 600 mg PO BID [facility] Last Admin: 08/09/18 22:38 Dose: 600 mg Guaifenesin (Robitussin -) 10 ml PO Q6H PRN PRN Reason: COUGH Insulin Aspart (Novolog Vial Sliding Scale -) 1 vial SQ ACHS [facility]; Protocol Last Admin: 08/10/18 06:43 Dose: Not Given Lactobacillus Acidophilus (Bacid -) 1 tab PO DAILY [facility] Last Admin: 08/09/18 09:48 Dose: 1 tab Methylprednisolone Sodium Succinate (Solu-Medrol -) 40 mg IVPUSH Q8H-IV [facility] Last Admin: 08/10/18 01:41 Dose: 40 mg Metoprolol Tartrate (Lopressor Injection -) 5 mg IVPUSH Q4H PRN PRN Reason: HYPERTENSION Last Admin: 07/31/18 17:24 Dose: 5 mg Metoprolol Tartrate (Lopressor -) 25 mg PO BID [facility] Last Admin: 08/09/18 22:38 Dose: 25 mg Multivitamins/Minerals/Vitamin C (Tab-A-Vit -) 1 tab PO DAILY [facility] Last Admin: 08/09/18 09:48 Dose: 1 tab Pantoprazole Sodium (Protonix Iv) 40 mg IVPUSH DAILY [facility] Last Admin: 08/09/18 09:48 Dose: 40 mg Polyethylene Glycol (Miralax (For Daily Use) -) 17 gm PO DAILY [facility] Last Admin: 08/09/18 22:38 Dose: 17 gm Potassium Chloride (K-Dur -) 20 meq PO DAILY [facility] Last Admin: 08/09/18 09:48 Dose: 20 meq Ranitidine HCl (Zantac -) 150 mg PO DAILY [facility] Last Admin: 08/09/18 09:48 Dose: 150 mg Rosuvastatin Calcium (Crestor -) 20 mg PO HS [facility] Last Admin: 08/09/18 22:38 Dose: 20 mg - Objective Vital Signs: Vital Signs Temperature 96.1 F L 08/10/18 02:00 Pulse Rate 73 08/10/18 06:00 Respiratory Rate 20 08/10/18 06:00 Blood Pressure 142/71 08/10/18 06:00 O2 Sat by Pulse Oximetry (%) 95 08/09/18 22:00 Constitutional: Yes: No Distress, Calm Eyes: Yes: Conjunctiva Clear HENT: Yes: Atraumatic Neck: Yes: Supple Cardiovascular: Yes: Regular Rate and Rhythm Respiratory: Yes: Rales, Rhonchi Gastrointestinal: Yes: Soft. No: Tenderness Genitourinary: No: Hematuria Musculoskeletal: No: Joint Stiffness, Joint Swelling Extremities: No: Cold, Cool, Cyanosis Edema: No Integumentary: Yes: Pressure Ulcer. No: Rash, Venous Stasis Changes Neurological: Yes: WNL, Alert, Oriented ...Motor Strength: WNL Psychiatric: Yes: WNL, Alert, Oriented. No: Agitated, Suicidal Ideation Labs: CBC, BMP 08/10/18 05:30 08/10/18 05:30 INR, PTT INR 1.01 (0.83-1.09) 07/08/18 16:43 - ....Imaging Other: Report Reviewed Assessment/Plan The patient is an 82 year old female with a PMH of COPD (on 2L), Stage 3a NSCC ( currently on radiation), CAD s/p [place] (s/p cardiac stent x3), HTN, HLD \admitted with acute onset of shortness of breath, acute on chronic COPD exac and bronchitis, new L sided PNA and metastatic ds lung, liver bones; borderline + troponins h/o ASHD stent, high BNP h/o CHF low EF, s/p hemoptysis and low GIB; new onset rapid AFib, low Platelets and anemia - s/p 2 U PRBC and sq lovenox stopped. borderline hypoNatremic; off IVf; renal f/u f/u labs and CXR iv steroids, taper nebs, O2 BGM, sq insulin prn PULM, Cardiology f/u HR control; ONC f/u miralax prn falls PFX, gastric, DVT aspiration PFX; turn q1-2h in bed; air mattress d/w staff prognosis guarded d/w pt and staff
[2018-08-10] MEDS: guaiFENesin 600 MG TABLET.ER (FP) PO SCH ×2 (09:48→21:51)
[2018-08-10] MEDS: LACTOBACILLUS ACIDOPHILUS 1 TABLET PO SCH (09:48)
[2018-08-10] MEDS: MULTIVITAMINS (DAILY MVI) TABLET (FP) PO SCH (09:48)
[2018-08-10] MEDS: POTASSIUM CHLORIDE TABS 20 MEQ TABLET.ER (FP) PO SCH (09:48)
[2018-08-10] MEDS: PANTOPRAZOLE SODIUM 40 MG VIAL IVPUSH SCH (09:48)
[2018-08-10] MEDS: RANITIDINE HCL 150 MG TABLET (FP) PO SCH (09:48)
[2018-08-10] MEDS: METOPROLOL TARTRATE 25 MG TABLET (FP) PO SCH ×2 (09:49→21:51)
[2018-08-10] MEDS: BUDESONIDE/FORMETEROL FUMARATE 80/4.5 mcg INHALER IH SCH ×2 (09:49→22:00)
[2018-08-10] MEDS: GABAPENTIN 100 MG CAPSULE (FP) PO SCH (09:49)
--- NOTE | 2018-08-10 09:51 | PN ---
Progress Note, Physician History of Present Illness: pulmonary alert,anxious on bipap,less dyspneic - Current Medication List Current Medications: Active Medications Acetaminophen (Tylenol -) 650 mg PO Q6H PRN PRN Reason: PAIN Albuterol Sulfate (Ventolin 0.083% Nebulizer Soln -) 1 amp NEB Q4H PRN PRN Reason: SHORT OF BREATH/WHEEZING Albuterol/Ipratropium (Duoneb -) 1 amp NEB RQ4H [facility] Last Admin: 08/10/18 07:33 Dose: 1 amp Alprazolam (Xanax -) 0.25 mg PO Q8H PRN PRN Reason: ANXIETY Last Admin: 08/09/18 22:38 Dose: 0.25 mg Budesonide/Formoterol Fumarate (Symbicort 80/4.5mcg -) 2 puff IH BID [facility] Last Admin: 08/09/18 22:50 Dose: 2 puff Diltiazem HCl (Cardizem -) 30 mg PO TID [facility] Last Admin: 08/10/18 06:43 Dose: Not Given Gabapentin (Neurontin -) 100 mg PO DAILY [facility] Last Admin: 08/09/18 09:48 Dose: 100 mg Guaifenesin (Mucinex -) 600 mg PO BID [facility] Last Admin: 08/09/18 22:38 Dose: 600 mg Guaifenesin (Robitussin -) 10 ml PO Q6H PRN PRN Reason: COUGH Insulin Aspart (Novolog Vial Sliding Scale -) 1 vial SQ ACHS [facility]; Protocol Last Admin: 08/10/18 06:43 Dose: Not Given Lactobacillus Acidophilus (Bacid -) 1 tab PO DAILY [facility] Last Admin: 08/09/18 09:48 Dose: 1 tab Methylprednisolone Sodium Succinate (Solu-Medrol -) 40 mg IVPUSH Q8H-IV [facility] Last Admin: 08/10/18 01:41 Dose: 40 mg Metoprolol Tartrate (Lopressor Injection -) 5 mg IVPUSH Q4H PRN PRN Reason: HYPERTENSION Last Admin: 07/31/18 17:24 Dose: 5 mg Metoprolol Tartrate (Lopressor -) 25 mg PO BID [facility] Last Admin: 08/09/18 22:38 Dose: 25 mg Multivitamins/Minerals/Vitamin C (Tab-A-Vit -) 1 tab PO DAILY [facility] Last Admin: 08/09/18 09:48 Dose: 1 tab Pantoprazole Sodium (Protonix Iv) 40 mg IVPUSH DAILY [facility] Last Admin: 08/09/18 09:48 Dose: 40 mg Polyethylene Glycol (Miralax (For Daily Use) -) 17 gm PO DAILY [facility] Last Admin: 08/09/18 22:38 Dose: 17 gm Potassium Chloride (K-Dur -) 20 meq PO DAILY [facility] Last Admin: 08/09/18 09:48 Dose: 20 meq Ranitidine HCl (Zantac -) 150 mg PO DAILY [facility] Last Admin: 08/09/18 09:48 Dose: 150 mg Rosuvastatin Calcium (Crestor -) 20 mg PO HS [facility] Last Admin: 08/09/18 22:38 Dose: 20 mg - Objective Vital Signs: Vital Signs Temperature 96.1 F L 08/10/18 02:00 Pulse Rate 73 08/10/18 06:00 Respiratory Rate 20 08/10/18 06:00 Blood Pressure 142/71 08/10/18 06:00 O2 Sat by Pulse Oximetry (%) 95 08/09/18 22:00 Constitutional: Yes: Calm, Thin Eyes: Yes: WNL HENT: Yes: WNL Neck: Yes: WNL Cardiovascular: Yes: Pulse Irregular, S1, S2 Respiratory: Yes: Diminished Gastrointestinal: Yes: Normal Bowel Sounds, Soft Extremities: Yes: WNL Edema: No Labs: CBC, BMP 08/10/18 05:30 08/10/18 05:30 INR, PTT INR 1.01 (0.83-1.09) 07/08/18 16:43 Assessment/Plan Problem List - Problems (1) Adenocarcinoma, lung Code(s): C34.90 - MALIGNANT NEOPLASM OF UNSP PART OF UNSP BRONCHUS OR LUNG (2) ASHD (arteriosclerotic heart disease) Code(s): I25.10 - ATHSCL HEART DISEASE OF [place] CORONARY ARTERY W/O ANG PCTRS (3) Anxiety and depression Code(s): F41.9 - ANXIETY DISORDER, UNSPECIFIED; F32.9 - MAJOR DEPRESSIVE DISORDER, SINGLE EPISODE, UNSPECIFIED (4) COPD (chronic obstructive pulmonary disease) Code(s): J44.9 - CHRONIC OBSTRUCTIVE PULMONARY DISEASE, UNSPECIFIED Qualifiers: COPD type: unspecified COPD Qualified Code(s): J44.9 - Chronic obstructive pulmonary disease, unspecified (5) COPD exacerbation Code(s): J44.1 - CHRONIC OBSTRUCTIVE PULMONARY DISEASE W (ACUTE) EXACERBATION (6) Cough Code(s): R05 - COUGH (7) Diastolic CHF Code(s): I50.30 - UNSPECIFIED DIASTOLIC (CONGESTIVE) HEART FAILURE (8) HTN (hypertension) Code(s): I10 - ESSENTIAL (PRIMARY) HYPERTENSION (9) Hyperlipidemia Code(s): E78.5 - HYPERLIPIDEMIA, UNSPECIFIED (10) Hypothyroid Code(s): E03.9 - HYPOTHYROIDISM, UNSPECIFIED (11) Shortness of breath Code(s): R06.02 - SHORTNESS OF BREATH A/P Acute COPD Exacerbation s/p RT session NSCLC - Adenocarcinoma mets to rib/liver LV Diastolic Dysfunction AFIB HTN Hypothyroidism Hyperlipidemia - medrol same dose - inhaled bronchodilators - DVT prophylaxis - continue bipap ,O2 - monitor marine goldstein DR
[2018-08-10] MEDS: POLYETHYLENE GLYCOL 3350 119 GM BTL PO SCH (09:56)
[2018-08-10 10:15] LABS: ACANTHOCYTES 0; ANISOCYTOSIS 0; HELMET CELLS 0; HOWELL-JOLLY BODIES 0; MACROCYTOSIS 0; OVALOCYTE 0; PLATELET ESTIMATE DECREASED; ROULEAU 0; SICKELED CELLS 0; TARGET CELLS 0; TEAR DROP CELLS 0; TOXIC GRANULATION 0
--- NOTE | 2018-08-10 11:09 | PN ---
Progress Note (short form) - Note Progress Note: Renal follow up for Hypernatremia Pt seen and examined at the bedside no acute complaints no sob, cp, abd pain tolerating oral solute and fluid intake Vital Signs Temperature 96.1 F L 08/10/18 02:00 Pulse Rate 73 08/10/18 06:00 Respiratory Rate 31 H 08/10/18 09:00 Blood Pressure 142/71 08/10/18 06:00 O2 Sat by Pulse Oximetry (%) 96 08/10/18 09:00 Intake & Output 08/07/18 08/08/18 08/09/18 08/10/18 23:59 23:59 23:59 23:59 Intake Total 9461 821 2437 Balance 1609 476 1682 NAD awake and alert Dec BS no Le edema CBC, BMP 08/10/18 05:30 08/10/18 05:30 Current Medications Acetaminophen (Tylenol -) 650 mg PO Q6H PRN PRN Reason: PAIN Albuterol Sulfate (Ventolin 0.083% Nebulizer Soln -) 1 amp NEB Q4H PRN PRN Reason: SHORT OF BREATH/WHEEZING Albuterol/Ipratropium (Duoneb -) 1 amp NEB RQ4H [facility] Last Admin: 08/10/18 07:33 Dose: 1 amp Alprazolam (Xanax -) 0.25 mg PO Q8H PRN PRN Reason: ANXIETY Last Admin: 08/09/18 22:38 Dose: 0.25 mg Budesonide/Formoterol Fumarate (Symbicort 80/4.5mcg -) 2 puff IH BID [facility] Last Admin: 08/10/18 09:49 Dose: Not Given Diltiazem HCl (Cardizem -) 30 mg PO TID [facility] Last Admin: 08/10/18 06:43 Dose: Not Given Gabapentin (Neurontin -) 100 mg PO DAILY [facility] Last Admin: 08/10/18 09:49 Dose: 100 mg Guaifenesin (Mucinex -) 600 mg PO BID [facility] Last Admin: 08/10/18 09:48 Dose: 600 mg Guaifenesin (Robitussin -) 10 ml PO Q6H PRN PRN Reason: COUGH Insulin Aspart (Novolog Vial Sliding Scale -) 1 vial SQ ACHS [facility]; Protocol Last Admin: 08/10/18 06:43 Dose: Not Given Lactobacillus Acidophilus (Bacid -) 1 tab PO DAILY [facility] Last Admin: 08/10/18 09:48 Dose: 1 tab Methylprednisolone Sodium Succinate (Solu-Medrol -) 40 mg IVPUSH Q8H-IV [facility] Last Admin: 08/10/18 09:48 Dose: 40 mg Metoprolol Tartrate (Lopressor Injection -) 5 mg IVPUSH Q4H PRN PRN Reason: HYPERTENSION Last Admin: 07/31/18 17:24 Dose: 5 mg Metoprolol Tartrate (Lopressor -) 25 mg PO BID [facility] Last Admin: 08/10/18 09:49 Dose: 25 mg Multivitamins/Minerals/Vitamin C (Tab-A-Vit -) 1 tab PO DAILY [facility] Last Admin: 08/10/18 09:48 Dose: 1 tab Pantoprazole Sodium (Protonix Iv) 40 mg IVPUSH DAILY [facility] Last Admin: 08/10/18 09:48 Dose: 40 mg Polyethylene Glycol (Miralax (For Daily Use) -) 17 gm PO DAILY [facility] Last Admin: 08/10/18 09:56 Dose: 17 gm Potassium Chloride (K-Dur -) 20 meq PO DAILY [facility] Last Admin: 08/10/18 09:48 Dose: 20 meq Ranitidine HCl (Zantac -) 150 mg PO DAILY [facility] Last Admin: 08/10/18 09:48 Dose: 150 mg Rosuvastatin Calcium (Crestor -) 20 mg PO HS [facility] Last Admin: 08/09/18 22:38 Dose: 20 mg 82 yr old female with recently dx'd with lung adenocarcinoma, COPD on home O2 @ 2L, HTN, HLD, ACS s/p myocardial infarction x 2, brought in post-RT treatment due to trouble breathing with respiraotory failure and progressive hypernatremia #Hypernatremia (water deficit ~3L) #Hypoxia #Hypokalemia #PNA #COPD #Adenocarcinoma of the Lung Serum Na improved, now slightly low continue to trend daily BUN high likely due to steroids Stan Harrison DO
[2018-08-10] MEDS ORDERED: PT OWN MED DRAWER 7, Y5N ONE (21:40)
--- NOTE | 2018-08-10 21:42 | PN ---
Progress Note, Physician Chief Complaint: shortness of breath History of Present Illness: On BiPAP. No acute events - Current Medication List Current Medications: Active Medications Acetaminophen (Tylenol -) 650 mg PO Q6H PRN PRN Reason: PAIN Albuterol Sulfate (Ventolin 0.083% Nebulizer Soln -) 1 amp NEB Q4H PRN PRN Reason: SHORT OF BREATH/WHEEZING Albuterol/Ipratropium (Duoneb -) 1 amp NEB RQ4H [facility] Last Admin: 08/10/18 16:49 Dose: 1 amp Alprazolam (Xanax -) 0.25 mg PO Q8H PRN PRN Reason: ANXIETY Last Admin: 08/09/18 22:38 Dose: 0.25 mg Budesonide/Formoterol Fumarate (Symbicort 80/4.5mcg -) 2 puff IH BID [facility] Last Admin: 08/10/18 09:49 Dose: Not Given Diltiazem HCl (Cardizem -) 30 mg PO TID [facility] Last Admin: 08/10/18 13:27 Dose: 30 mg Gabapentin (Neurontin -) 100 mg PO DAILY [facility] Last Admin: 08/10/18 09:49 Dose: 100 mg Guaifenesin (Mucinex -) 600 mg PO BID [facility] Last Admin: 08/10/18 09:48 Dose: 600 mg Guaifenesin (Robitussin -) 10 ml PO Q6H PRN PRN Reason: COUGH Insulin Aspart (Novolog Vial Sliding Scale -) 1 vial SQ ACHS [facility]; Protocol Last Admin: 08/10/18 17:22 Dose: 2 units Lactobacillus Acidophilus (Bacid -) 1 tab PO DAILY [facility] Last Admin: 08/10/18 09:48 Dose: 1 tab Methylprednisolone Sodium Succinate (Solu-Medrol -) 40 mg IVPUSH Q8H-IV [facility] Last Admin: 08/10/18 17:22 Dose: 40 mg Metoprolol Tartrate (Lopressor Injection -) 5 mg IVPUSH Q4H PRN PRN Reason: HYPERTENSION Last Admin: 07/31/18 17:24 Dose: 5 mg Metoprolol Tartrate (Lopressor -) 25 mg PO BID [facility] Last Admin: 08/10/18 09:49 Dose: 25 mg Multivitamins/Minerals/Vitamin C (Tab-A-Vit -) 1 tab PO DAILY [facility] Last Admin: 08/10/18 09:48 Dose: 1 tab Pantoprazole Sodium (Protonix Iv) 40 mg IVPUSH DAILY [facility] Last Admin: 08/10/18 09:48 Dose: 40 mg Polyethylene Glycol (Miralax (For Daily Use) -) 17 gm PO DAILY [facility] Last Admin: 08/10/18 09:56 Dose: 17 gm Potassium Chloride (K-Dur -) 20 meq PO DAILY [facility] Last Admin: 08/10/18 09:48 Dose: 20 meq Ranitidine HCl (Zantac -) 150 mg PO DAILY [facility] Last Admin: 08/10/18 09:48 Dose: 150 mg Rosuvastatin Calcium (Crestor -) 20 mg PO HS [facility] Last Admin: 08/09/18 22:38 Dose: 20 mg - Objective Vital Signs: Vital Signs Temperature 97 F L 08/10/18 18:00 Pulse Rate 71 08/10/18 18:00 Respiratory Rate 23 H 08/10/18 18:00 Blood Pressure 146/68 08/10/18 18:00 O2 Sat by Pulse Oximetry (%) 95 08/10/18 14:50 Labs: CBC, BMP 08/10/18 05:30 08/10/18 05:30 INR, PTT INR 1.01 (0.83-1.09) 07/08/18 16:43 Assessment/Plan 82F with COPD on home O2, CAD, dCHF, and recently dx'd lung adenocarcinoma admitted with SOB after 1st RT treatment. Has had a prolonged hospitalization due to respiratory issues and was found to have metastatic liver and bone involvement. Continues to require BiPAP. Also developed worsening of chronic thrombocytopenia. Hep ab very slightly elevated and ROSA MARIA is pending. Doubt HIT. Lovenox held. Plt in the 40s, still slightly downtrending. No bleeding. Consider holding PPI or H2 eleuterio. Continue monitoring.
[2018-08-10] MEDS: ROSUVASTATIN CA 20 MG TABLET (FP) PO SCH (21:51)
[2018-08-10] MEDS: ALPRAZolam 0.25 MG TABLET PO PRN (21:51)
[2018-08-11] MEDS: ALBUTEROL SO4 2.5/IPRATROPIUM 0.5 INH SOL 3 ML VIAL.NEB. NEB SCH ×7 (00:20→23:32)
[2018-08-11] MEDS: methylPREDNISolone NA SUCC 40 MG/1 ML VIAL IVPUSH SCH ×3 (01:50→17:10)
[2018-08-11] MEDS: dilTIAZem HCL 30 MG TABLET (FP) PO SCH ×3 (06:42→21:21)
[2018-08-11] MEDS: INSULIN SLIDING SCALE (NOVOLOG) 1 VIAL SQ SCH ×4 (06:44→21:25)
[2018-08-11 07:31] LABS: BASO % 0.5 % (0-2.0); HEMATOCRIT 35.6 % (32.4-45.2); HEMOGLOBIN 12.2 GM/dL (10.7-15.3); LYMPH % 0.9 % (8-40); MCH 31.1 pg (25.7-33.7); MCHC 34.4 g/dl (32.0-36.0); MEAN CELL VOLUME 90.2 fl (80-96); MEAN PLT VOLUME 11.2 fl (7.5-11.1); MONO % 1.2 % (3.8-10.2); NEUT % 97.4 % (42.8-82.8); PLATELET COUNT 42 K/MM3 (134-434); RBC 3.94 M/mm3 (3.60-5.2); RDW 15.4 % (11.6-15.6); WHITE BLOOD COUNT 13.2 K/mm3 (4.0-10.0)
[2018-08-11 08:54] LABS: ALBUMIN 2.4 g/dl (3.4-5.0); ALK PHOS 70 U/L (45-117); ANION GAP 8 MMOL/L (8-16); BILIRUBIN,TOTAL 0.5 mg/dL (0.2-1); BLOOD UREA NITROGEN 21 mg/dL (7-18); CALCIUM 8.3 mg/dL (8.5-10.1); CHLORIDE 106 mmol/L (98-107); CO2 26 mmol/L (21-32); CREATININE 1.4 mg/dL (0.55-1.3); GLUCOSE,RANDOM 111 mg/dL (74-106); SGOT/AST 43 U/L (15-37); SGPT/ALT 23 U/L (13-61); SODIUM 141 mmol/L (136-145); TOT PROT 5.2 g/dl (6.4-8.2)
--- NOTE | 2018-08-11 09:16 | PN ---
Progress Note, Physician History of Present Illness: The patient is an 82 year old white female with a PMH of COPD (on 2L), Stage 3a NSCC lung cancer (currently on radiation), CAD s/p [place] (s/p cardiac stent x3), HTN, HLD was BIBEMS for acute onset of shortness of breath. Patient was completing her first radiation treatment today when she suddenly became short of breath. Denies chest pain, lightheadedness, nausea, diaphoresis. Grandson @ bedside assists in history, notes patient has been taking her Albuterol inhaler multiple times daily. Recent medication addition of Symbicort to her daily regimen. History limited as patient tachycardic, tachypneic @ presentation. NKDA Surgical: Cardiac Stent x3, lung biopsy PMD: Dr. Mary Beth Stein Cardiology: Dr. Bah Pulmonology: Dr. Kern/Dr. Velazquez - Current Medication List Current Medications: Active Medications Acetaminophen (Tylenol -) 650 mg PO Q6H PRN PRN Reason: PAIN Albuterol Sulfate (Ventolin 0.083% Nebulizer Soln -) 1 amp NEB Q4H PRN PRN Reason: SHORT OF BREATH/WHEEZING Albuterol/Ipratropium (Duoneb -) 1 amp NEB RQ4H [facility] Last Admin: 08/11/18 08:27 Dose: 1 amp Alprazolam (Xanax -) 0.25 mg PO Q8H PRN PRN Reason: ANXIETY Last Admin: 08/10/18 21:51 Dose: 0.25 mg Budesonide/Formoterol Fumarate (Symbicort 80/4.5mcg -) 2 puff IH BID [facility] Last Admin: 08/10/18 22:00 Dose: 2 puff Diltiazem HCl (Cardizem -) 30 mg PO TID [facility] Last Admin: 08/11/18 06:42 Dose: 30 mg Gabapentin (Neurontin -) 100 mg PO DAILY [facility] Last Admin: 08/10/18 09:49 Dose: 100 mg Guaifenesin (Mucinex -) 600 mg PO BID [facility] Last Admin: 08/10/18 21:51 Dose: 600 mg Guaifenesin (Robitussin -) 10 ml PO Q6H PRN PRN Reason: COUGH Insulin Aspart (Novolog Vial Sliding Scale -) 1 vial SQ ACHS [facility]; Protocol Last Admin: 08/11/18 06:44 Dose: Not Given Lactobacillus Acidophilus (Bacid -) 1 tab PO DAILY [facility] Last Admin: 08/10/18 09:48 Dose: 1 tab Methylprednisolone Sodium Succinate (Solu-Medrol -) 40 mg IVPUSH Q8H-IV [facility] Last Admin: 08/11/18 01:50 Dose: 40 mg Metoprolol Tartrate (Lopressor Injection -) 5 mg IVPUSH Q4H PRN PRN Reason: HYPERTENSION Last Admin: 07/31/18 17:24 Dose: 5 mg Metoprolol Tartrate (Lopressor -) 25 mg PO BID [facility] Last Admin: 08/10/18 21:51 Dose: 25 mg Multivitamins/Minerals/Vitamin C (Tab-A-Vit -) 1 tab PO DAILY [facility] Last Admin: 08/10/18 09:48 Dose: 1 tab Pantoprazole Sodium (Protonix Iv) 40 mg IVPUSH DAILY [facility] Last Admin: 08/10/18 09:48 Dose: 40 mg Polyethylene Glycol (Miralax (For Daily Use) -) 17 gm PO DAILY [facility] Last Admin: 08/10/18 09:56 Dose: 17 gm Potassium Chloride (K-Dur -) 20 meq PO DAILY [facility] Last Admin: 08/10/18 09:48 Dose: 20 meq Ranitidine HCl (Zantac -) 150 mg PO DAILY [facility] Last Admin: 08/10/18 09:48 Dose: 150 mg Rosuvastatin Calcium (Crestor -) 20 mg PO HS [facility] Last Admin: 08/10/18 21:51 Dose: 20 mg - Objective Vital Signs: Vital Signs Temperature 97.4 F L 08/11/18 06:00 Pulse Rate 74 08/11/18 06:00 Respiratory Rate 20 08/11/18 06:00 Blood Pressure 129/70 08/11/18 06:00 O2 Sat by Pulse Oximetry (%) 95 08/10/18 21:00 Constitutional: Yes: Moderate Distress Eyes: Yes: WNL, Conjunctiva Clear, EOM Intact HENT: Yes: WNL, Atraumatic, Normocephalic Neck: Yes: WNL, Supple, Trachea Midline Cardiovascular: Yes: WNL, Regular Rate and Rhythm Respiratory: Yes: Diminished, On BiPap Gastrointestinal: Yes: WNL, Normal Bowel Sounds Genitourinary: Yes: WNL Musculoskeletal: Yes: WNL Extremities: Yes: WNL Edema: No Integumentary: Yes: WNL Neurological: Yes: WNL, Alert, Oriented ...Motor Strength: WNL Psychiatric: Yes: WNL Labs: CBC, BMP 08/11/18 06:00 08/11/18 06:00 INR, PTT INR 1.01 (0.83-1.09) 07/08/18 16:43 Assessment/Plan - Problems (1) Elevated troponin I level Assessment/Plan: EKG: NSR Pt likely has demand ischemia from exacerbation of COPD, diastolic CHF, CA, tachycardia. Given pt's advanced lung CA, would recommend conservative management of cardiac condition (she is on metoprolol, diltiazem, statin, ASA, Lovenox) Code(s): R74.8 - ABNORMAL LEVELS OF OTHER SERUM ENZYMES (2) Adenocarcinoma, lung Assessment/Plan: Advanced CA, with bone and liver metastases. F/u with hem/onc. Code(s): C34.90 - MALIGNANT NEOPLASM OF UNSP PART OF UNSP BRONCHUS OR LUNG (3) Shortness of breath Assessment/Plan: On IV steroids (attempt to decrease dosing), bronchodilators, O2 per vice president of customer service. Code(s): R06.02 - SHORTNESS OF BREATH (4) HTN (hypertension) Assessment/Plan: On metoprolol, diltiazem, and furosemide. Code(s): I10 - ESSENTIAL (PRIMARY) HYPERTENSION (5) Hyperlipidemia Assessment/Plan: on statin Code(s): E78.5 - HYPERLIPIDEMIA, UNSPECIFIED (6) Acute on chronic diastolic CHF (congestive heart failure) Assessment/Plan: On metoprolol, diltiazem, and Furosemide f/u BUn/Cr, electrolytes, daily weight, Is and Os. Code(s): I50.33 - ACUTE ON CHRONIC DIASTOLIC (CONGESTIVE) HEART FAILURE (7) Thrombocytopenia Assessment/Plan: Developed during this admission. Off ASA, anticoagulants; platelets remain low. Code(s): D69.6 - THROMBOCYTOPENIA, UNSPECIFIED (8) Atrial fibrillation Assessment/Plan: On metoprolol and diltiazem HR control. Off anticoagulants and antiplatelets (thrombocytopenia; anemia-->PRBCx). Code(s): I48.91 - UNSPECIFIED ATRIAL FIBRILLATION
[2018-08-11] MEDS: PANTOPRAZOLE SODIUM 40 MG VIAL IVPUSH SCH (09:48)
[2018-08-11] MEDS: METOPROLOL TARTRATE 25 MG TABLET (FP) PO SCH ×2 (09:49→21:21)
[2018-08-11] MEDS: RANITIDINE HCL 150 MG TABLET (FP) PO SCH (09:49)
[2018-08-11] MEDS: LACTOBACILLUS ACIDOPHILUS 1 TABLET PO SCH (09:49)
[2018-08-11] MEDS: BUDESONIDE/FORMETEROL FUMARATE 80/4.5 mcg INHALER IH SCH ×2 (09:49→21:23)
[2018-08-11] MEDS: POTASSIUM CHLORIDE TABS 20 MEQ TABLET.ER (FP) PO SCH (09:49)
[2018-08-11] MEDS: POLYETHYLENE GLYCOL 3350 119 GM BTL PO SCH (09:49)
[2018-08-11] MEDS: ALPRAZolam 0.25 MG TABLET PO PRN ×2 (09:49→21:22)
[2018-08-11] MEDS: GABAPENTIN 100 MG CAPSULE (FP) PO SCH (09:49)
[2018-08-11] MEDS: MULTIVITAMINS (DAILY MVI) TABLET (FP) PO SCH (09:49)
[2018-08-11] MEDS: guaiFENesin 600 MG TABLET.ER (FP) PO SCH ×2 (09:49→21:21)
[2018-08-11] MEDS: ACETAMINOPHEN 325 MG TABLET (FP) PO PRN (09:52)
--- NOTE | 2018-08-11 10:03 | PN ---
Progress Note, Physician History of Present Illness: pulmonary alert,on bipap,less dyspneic - Current Medication List Current Medications: Active Medications Acetaminophen (Tylenol -) 650 mg PO Q6H PRN PRN Reason: PAIN Last Admin: 08/11/18 09:52 Dose: 650 mg Albuterol Sulfate (Ventolin 0.083% Nebulizer Soln -) 1 amp NEB Q4H PRN PRN Reason: SHORT OF BREATH/WHEEZING Albuterol/Ipratropium (Duoneb -) 1 amp NEB RQ4H JOHN Last Admin: 08/11/18 08:27 Dose: 1 amp Alprazolam (Xanax -) 0.25 mg PO Q8H PRN PRN Reason: ANXIETY Last Admin: 08/11/18 09:49 Dose: 0.25 mg Budesonide/Formoterol Fumarate (Symbicort 80/4.5mcg -) 2 puff IH BID [facility] Last Admin: 08/11/18 09:49 Dose: Not Given Diltiazem HCl (Cardizem -) 30 mg PO TID [facility] Last Admin: 08/11/18 06:42 Dose: 30 mg Gabapentin (Neurontin -) 100 mg PO DAILY [facility] Last Admin: 08/11/18 09:49 Dose: 100 mg Guaifenesin (Mucinex -) 600 mg PO BID [facility] Last Admin: 08/11/18 09:49 Dose: 600 mg Guaifenesin (Robitussin -) 10 ml PO Q6H PRN PRN Reason: COUGH Insulin Aspart (Novolog Vial Sliding Scale -) 1 vial SQ ACHS [facility]; Protocol Last Admin: 08/11/18 06:44 Dose: Not Given Lactobacillus Acidophilus (Bacid -) 1 tab PO DAILY [facility] Last Admin: 08/11/18 09:49 Dose: 1 tab Methylprednisolone Sodium Succinate (Solu-Medrol -) 40 mg IVPUSH Q8H-IV [facility] Last Admin: 08/11/18 09:48 Dose: 40 mg Metoprolol Tartrate (Lopressor Injection -) 5 mg IVPUSH Q4H PRN PRN Reason: HYPERTENSION Last Admin: 07/31/18 17:24 Dose: 5 mg Metoprolol Tartrate (Lopressor -) 25 mg PO BID [facility] Last Admin: 08/11/18 09:49 Dose: 25 mg Multivitamins/Minerals/Vitamin C (Tab-A-Vit -) 1 tab PO DAILY [facility] Last Admin: 08/11/18 09:49 Dose: 1 tab Pantoprazole Sodium (Protonix Iv) 40 mg IVPUSH DAILY [facility] Last Admin: 08/11/18 09:48 Dose: 40 mg Polyethylene Glycol (Miralax (For Daily Use) -) 17 gm PO DAILY [facility] Last Admin: 08/11/18 09:49 Dose: 17 gm Potassium Chloride (K-Dur -) 20 meq PO DAILY [facility] Last Admin: 08/11/18 09:49 Dose: 20 meq Ranitidine HCl (Zantac -) 150 mg PO DAILY [facility] Last Admin: 08/11/18 09:49 Dose: 150 mg Rosuvastatin Calcium (Crestor -) 20 mg PO HS [facility] Last Admin: 08/10/18 21:51 Dose: 20 mg - Objective Vital Signs: Vital Signs Temperature 97.4 F L 08/11/18 06:00 Pulse Rate 74 08/11/18 06:00 Respiratory Rate 20 08/11/18 06:00 Blood Pressure 129/70 08/11/18 06:00 O2 Sat by Pulse Oximetry (%) 95 08/10/18 21:00 Constitutional: Yes: Calm, Thin Eyes: Yes: WNL HENT: Yes: WNL Neck: Yes: WNL Cardiovascular: Yes: Pulse Irregular, S1, S2 Respiratory: Yes: Diminished, On BiPap Gastrointestinal: Yes: Normal Bowel Sounds, Soft Extremities: Yes: WNL Edema: No Labs: CBC, BMP 08/11/18 06:00 08/11/18 06:00 INR, PTT INR 1.01 (0.83-1.09) 07/08/18 16:43 Assessment/Plan Problem List - Problems (1) Adenocarcinoma, lung Code(s): C34.90 - MALIGNANT NEOPLASM OF UNSP PART OF UNSP BRONCHUS OR LUNG (2) ASHD (arteriosclerotic heart disease) Code(s): I25.10 - ATHSCL HEART DISEASE OF [place] CORONARY ARTERY W/O ANG PCTRS (3) Anxiety and depression Code(s): F41.9 - ANXIETY DISORDER, UNSPECIFIED; F32.9 - MAJOR DEPRESSIVE DISORDER, SINGLE EPISODE, UNSPECIFIED (4) COPD (chronic obstructive pulmonary disease) Code(s): J44.9 - CHRONIC OBSTRUCTIVE PULMONARY DISEASE, UNSPECIFIED Qualifiers: COPD type: unspecified COPD Qualified Code(s): J44.9 - Chronic obstructive pulmonary disease, unspecified (5) COPD exacerbation Code(s): J44.1 - CHRONIC OBSTRUCTIVE PULMONARY DISEASE W (ACUTE) EXACERBATION (6) Cough Code(s): R05 - COUGH (7) Diastolic CHF Code(s): I50.30 - UNSPECIFIED DIASTOLIC (CONGESTIVE) HEART FAILURE (8) HTN (hypertension) Code(s): I10 - ESSENTIAL (PRIMARY) HYPERTENSION (9) Hyperlipidemia Code(s): E78.5 - HYPERLIPIDEMIA, UNSPECIFIED (10) Hypothyroid Code(s): E03.9 - HYPOTHYROIDISM, UNSPECIFIED (11) Shortness of breath Code(s): R06.02 - SHORTNESS OF BREATH A/P Acute COPD Exacerbation s/p RT session NSCLC - Adenocarcinoma mets to rib/liver LV Diastolic Dysfunction AFIB HTN Hypothyroidism Hyperlipidemia Thrombocytopenia - medrol - inhaled bronchodilators - DVT prophylaxis - continue bipap ,O2 - monitor lytes,na - monitor cbc,plt ct DR CARDOSO
--- NOTE | 2018-08-11 11:00 | PN ---
Progress Note, Physician Chief Complaint: in bed NAD VSS afebrile; on Bipap less cough; anxious PLT 42K no bleed but not on any AC - Current Medication List Current Medications: Active Medications Acetaminophen (Tylenol -) 650 mg PO Q6H PRN PRN Reason: PAIN Last Admin: 08/11/18 09:52 Dose: 650 mg Albuterol Sulfate (Ventolin 0.083% Nebulizer Soln -) 1 amp NEB Q4H PRN PRN Reason: SHORT OF BREATH/WHEEZING Albuterol/Ipratropium (Duoneb -) 1 amp NEB RQ4H JOHN Last Admin: 08/11/18 08:27 Dose: 1 amp Alprazolam (Xanax -) 0.25 mg PO Q8H PRN PRN Reason: ANXIETY Last Admin: 08/11/18 09:49 Dose: 0.25 mg Budesonide/Formoterol Fumarate (Symbicort 80/4.5mcg -) 2 puff IH BID [facility] Last Admin: 08/11/18 09:49 Dose: Not Given Diltiazem HCl (Cardizem -) 30 mg PO TID [facility] Last Admin: 08/11/18 06:42 Dose: 30 mg Gabapentin (Neurontin -) 100 mg PO DAILY [facility] Last Admin: 08/11/18 09:49 Dose: 100 mg Guaifenesin (Mucinex -) 600 mg PO BID [facility] Last Admin: 08/11/18 09:49 Dose: 600 mg Guaifenesin (Robitussin -) 10 ml PO Q6H PRN PRN Reason: COUGH Insulin Aspart (Novolog Vial Sliding Scale -) 1 vial SQ ACHS [facility]; Protocol Last Admin: 08/11/18 06:44 Dose: Not Given Lactobacillus Acidophilus (Bacid -) 1 tab PO DAILY [facility] Last Admin: 08/11/18 09:49 Dose: 1 tab Methylprednisolone Sodium Succinate (Solu-Medrol -) 40 mg IVPUSH Q8H-IV [facility] Last Admin: 08/11/18 09:48 Dose: 40 mg Metoprolol Tartrate (Lopressor Injection -) 5 mg IVPUSH Q4H PRN PRN Reason: HYPERTENSION Last Admin: 07/31/18 17:24 Dose: 5 mg Metoprolol Tartrate (Lopressor -) 25 mg PO BID [facility] Last Admin: 08/11/18 09:49 Dose: 25 mg Multivitamins/Minerals/Vitamin C (Tab-A-Vit -) 1 tab PO DAILY [facility] Last Admin: 08/11/18 09:49 Dose: 1 tab Pantoprazole Sodium (Protonix Iv) 40 mg IVPUSH DAILY [facility] Last Admin: 08/11/18 09:48 Dose: 40 mg Polyethylene Glycol (Miralax (For Daily Use) -) 17 gm PO DAILY [facility] Last Admin: 08/11/18 09:49 Dose: 17 gm Potassium Chloride (K-Dur -) 20 meq PO DAILY [facility] Last Admin: 08/11/18 09:49 Dose: 20 meq Ranitidine HCl (Zantac -) 150 mg PO DAILY [facility] Last Admin: 08/11/18 09:49 Dose: 150 mg Rosuvastatin Calcium (Crestor -) 20 mg PO HS [facility] Last Admin: 08/10/18 21:51 Dose: 20 mg - Objective Vital Signs: Vital Signs Temperature 97.4 F L 08/11/18 06:00 Pulse Rate 74 08/11/18 06:00 Respiratory Rate 20 08/11/18 06:00 Blood Pressure 129/70 08/11/18 06:00 O2 Sat by Pulse Oximetry (%) 95 08/10/18 21:00 Constitutional: Yes: No Distress, Calm Eyes: Yes: Conjunctiva Clear HENT: Yes: Atraumatic Neck: Yes: Supple Cardiovascular: Yes: Regular Rate and Rhythm Respiratory: Yes: Rales Gastrointestinal: Yes: Soft. No: Tenderness Genitourinary: No: Hematuria Musculoskeletal: No: Joint Stiffness, Joint Swelling Extremities: No: Cold, Cool Edema: No Integumentary: No: Rash, Venous Stasis Changes Neurological: Yes: WNL, Alert, Oriented ...Motor Strength: WNL Psychiatric: Yes: WNL, Alert, Oriented. No: Agitated, Suicidal Ideation Labs: CBC, BMP 08/11/18 06:00 08/11/18 06:00 INR, PTT INR 1.01 (0.83-1.09) 07/08/18 16:43 - ....Imaging Other: Report Reviewed Assessment/Plan The patient is an 82 year old female with a PMH of COPD (on 2L), Stage 3a NSCC ( currently on radiation), CAD s/p [place] (s/p cardiac stent x3), HTN, HLD \admitted with acute onset of shortness of breath, acute on chronic COPD exac and bronchitis, new L sided PNA and metastatic ds lung, liver bones; borderline + troponins h/o ASHD stent, high BNP h/o CHF low EF, s/p hemoptysis and low GIB; new onset rapid AFib, low Platelets and anemia - s/p 2 U PRBC and sq lovenox stopped. f/u labs and CXR iv steroids, taper nebs, O2 BGM, sq insulin prn PULM, Cardiology f/u HR control; ONC f/u miralax prn DVT pfx TEDs and SCDs (on both legs) no AC b/o low PLT falls PFX, gastric, DVT aspiration PFX; turn q1-2h in bed; air mattress d/w staff prognosis guarded d/w pt and staff
[2018-08-11 11:09] LABS: ACANTHOCYTES 0; ANISOCYTOSIS 0; HELMET CELLS 0; HOWELL-JOLLY BODIES 0; MACROCYTOSIS 0; OVALOCYTE 0; PLATELET ESTIMATE DECREASED; ROULEAU 0; SICKELED CELLS 0; TARGET CELLS 0; TEAR DROP CELLS 0; TOXIC GRANULATION 0
--- NOTE | 2018-08-11 18:52 | PN ---
Progress Note, Physician Chief Complaint: SOB History of Present Illness: No new complaints. Continues to have SOB and requiring BiPAP - Current Medication List Current Medications: Active Medications Acetaminophen (Tylenol -) 650 mg PO Q6H PRN PRN Reason: PAIN Last Admin: 08/11/18 09:52 Dose: 650 mg Albuterol Sulfate (Ventolin 0.083% Nebulizer Soln -) 1 amp NEB Q4H PRN PRN Reason: SHORT OF BREATH/WHEEZING Albuterol/Ipratropium (Duoneb -) 1 amp NEB RQ4H JOHN Last Admin: 08/11/18 16:25 Dose: 1 amp Alprazolam (Xanax -) 0.25 mg PO Q8H PRN PRN Reason: ANXIETY Last Admin: 08/11/18 09:49 Dose: 0.25 mg Budesonide/Formoterol Fumarate (Symbicort 80/4.5mcg -) 2 puff IH BID [facility] Last Admin: 08/11/18 09:49 Dose: Not Given Diltiazem HCl (Cardizem -) 30 mg PO TID [facility] Last Admin: 08/11/18 13:38 Dose: 30 mg Gabapentin (Neurontin -) 100 mg PO DAILY [facility] Last Admin: 08/11/18 09:49 Dose: 100 mg Guaifenesin (Mucinex -) 600 mg PO BID [facility] Last Admin: 08/11/18 09:49 Dose: 600 mg Guaifenesin (Robitussin -) 10 ml PO Q6H PRN PRN Reason: COUGH Insulin Aspart (Novolog Vial Sliding Scale -) 1 vial SQ ACHS [facility]; Protocol Last Admin: 08/11/18 17:10 Dose: 2 units Lactobacillus Acidophilus (Bacid -) 1 tab PO DAILY [facility] Last Admin: 08/11/18 09:49 Dose: 1 tab Methylprednisolone Sodium Succinate (Solu-Medrol -) 40 mg IVPUSH Q8H-IV [facility] Last Admin: 08/11/18 17:10 Dose: 40 mg Metoprolol Tartrate (Lopressor Injection -) 5 mg IVPUSH Q4H PRN PRN Reason: HYPERTENSION Last Admin: 07/31/18 17:24 Dose: 5 mg Metoprolol Tartrate (Lopressor -) 25 mg PO BID [facility] Last Admin: 08/11/18 09:49 Dose: 25 mg Multivitamins/Minerals/Vitamin C (Tab-A-Vit -) 1 tab PO DAILY [facility] Last Admin: 08/11/18 09:49 Dose: 1 tab Pantoprazole Sodium (Protonix Iv) 40 mg IVPUSH DAILY [facility] Last Admin: 08/11/18 09:48 Dose: 40 mg Polyethylene Glycol (Miralax (For Daily Use) -) 17 gm PO DAILY [facility] Last Admin: 08/11/18 09:49 Dose: 17 gm Potassium Chloride (K-Dur -) 20 meq PO DAILY [facility] Last Admin: 08/11/18 09:49 Dose: 20 meq Ranitidine HCl (Zantac -) 150 mg PO DAILY [facility] Last Admin: 08/11/18 09:49 Dose: 150 mg Rosuvastatin Calcium (Crestor -) 20 mg PO HS [facility] Last Admin: 08/10/18 21:51 Dose: 20 mg - Objective Vital Signs: Vital Signs Temperature 98.2 F 08/11/18 18:00 Pulse Rate 81 08/11/18 18:00 Respiratory Rate 31 H 08/11/18 18:00 Blood Pressure 122/63 08/11/18 18:00 O2 Sat by Pulse Oximetry (%) 95 08/11/18 15:25 Constitutional: Yes: No Distress Eyes: Yes: Conjunctiva Clear Cardiovascular: Yes: Regular Rate and Rhythm Gastrointestinal: Yes: WNL, Soft Labs: CBC, BMP 08/11/18 06:00 08/11/18 06:00 INR, PTT INR 1.01 (0.83-1.09) 07/08/18 16:43 Assessment/Plan 82F with COPD on home O2, CAD, dCHF, and recently dx'd lung adenocarcinoma admitted with SOB after 1st RT treatment. Has had a prolonged hospitalization due to respiratory issues and was found to have metastatic liver and bone involvement. Continues to require BiPAP. Also developed worsening of chronic thrombocytopenia. Hep ab very slightly elevated and ROSA MARIA is pending. Doubt HIT. Lovenox held. Plt stable today in 40s. No bleeding. Continue monitoring. Ordered coags, fibrinogen for tomorrow
[2018-08-11] MEDS: ROSUVASTATIN CA 20 MG TABLET (FP) PO SCH (21:21)
[2018-08-12] MEDS: methylPREDNISolone NA SUCC 40 MG/1 ML VIAL IVPUSH SCH ×3 (01:41→21:57)
[2018-08-12] MEDS: ALBUTEROL SO4 2.5/IPRATROPIUM 0.5 INH SOL 3 ML VIAL.NEB. NEB SCH ×5 (03:05→20:12)
[2018-08-12] MEDS: dilTIAZem HCL 30 MG TABLET (FP) PO SCH ×3 (06:02→21:57)
[2018-08-12] MEDS: INSULIN SLIDING SCALE (NOVOLOG) 1 VIAL SQ SCH ×4 (06:03→22:05)
[2018-08-12 06:19] LABS: BASO % 1.1 % (0-2.0); HEMATOCRIT 35.8 % (32.4-45.2); LYMPH % 0.6 % (8-40); MCH 30.1 pg (25.7-33.7); MCHC 33.6 g/dl (32.0-36.0); MEAN CELL VOLUME 89.6 fl (80-96); MEAN PLT VOLUME 10.3 fl (7.5-11.1); MONO % 1.9 % (3.8-10.2); NEUT % 96.4 % (42.8-82.8); PLATELET COUNT 45 K/MM3 (134-434); RBC 3.99 M/mm3 (3.60-5.2); RDW 15.5 % (11.6-15.6); WHITE BLOOD COUNT 16.5 K/mm3 (4.0-10.0)
[2018-08-12 06:37] LABS: INR 1.05 (0.83-1.09); PROTHROMBIN TIME (PATIENT) 12.4 SEC (9.7-13.0)
[2018-08-12 06:39] LABS: ACTIVATED PTT 21.1 SECONDS (25.2-36.5)
[2018-08-12 06:57] LABS: ALBUMIN 3.2 g/dl (3.4-5.0); ALK PHOS 138 U/L (45-117); ANION GAP 5 MMOL/L (8-16); BILIRUBIN,TOTAL 1.4 mg/dL (0.2-1); BLOOD UREA NITROGEN 56 mg/dL (7-18); CALCIUM 9.5 mg/dL (8.5-10.1); CHLORIDE 100 mmol/L (98-107); CO2 36 mmol/L (21-32); CREATININE 0.8 mg/dL (0.55-1.3); GLUCOSE,RANDOM 110 mg/dL (74-106); SGOT/AST 48 U/L (15-37); SGPT/ALT 146 U/L (13-61); SODIUM 140 mmol/L (136-145); TOT PROT 5.4 g/dl (6.4-8.2)
--- NOTE | 2018-08-12 08:47 | PN ---
Progress Note, Physician Chief Complaint: on bipap feels anxious wants someone with her all the time d/w H staff decreased po intake very weak generally, wants to go to the bathroom but can not get OOB, uses bedpan and that upsets her has some pain in the back; has stage 1-2 sacral - d/w pt and staff turn in bed, air mattress topical bacitracin; pt can not sit up alone without support - Current Medication List Current Medications: Active Medications Acetaminophen (Tylenol -) 650 mg PO Q6H PRN PRN Reason: PAIN Last Admin: 08/11/18 09:52 Dose: 650 mg Albuterol Sulfate (Ventolin 0.083% Nebulizer Soln -) 1 amp NEB Q4H PRN PRN Reason: SHORT OF BREATH/WHEEZING Albuterol/Ipratropium (Duoneb -) 1 amp NEB RQ4H [facility] Last Admin: 08/12/18 07:30 Dose: 1 amp Alprazolam (Xanax -) 0.25 mg PO Q8H PRN PRN Reason: ANXIETY Last Admin: 08/11/18 21:22 Dose: 0.25 mg Budesonide/Formoterol Fumarate (Symbicort 80/4.5mcg -) 2 puff IH BID [facility] Last Admin: 08/11/18 21:23 Dose: 2 puff Diltiazem HCl (Cardizem -) 30 mg PO TID [facility] Last Admin: 08/12/18 06:02 Dose: 30 mg Gabapentin (Neurontin -) 100 mg PO DAILY [facility] Last Admin: 08/11/18 09:49 Dose: 100 mg Guaifenesin (Mucinex -) 600 mg PO BID [facility] Last Admin: 08/11/18 21:21 Dose: 600 mg Guaifenesin (Robitussin -) 10 ml PO Q6H PRN PRN Reason: COUGH Insulin Aspart (Novolog Vial Sliding Scale -) 1 vial SQ ACHS [facility]; Protocol Last Admin: 08/12/18 06:03 Dose: Not Given Lactobacillus Acidophilus (Bacid -) 1 tab PO DAILY [facility] Last Admin: 08/11/18 09:49 Dose: 1 tab Methylprednisolone Sodium Succinate (Solu-Medrol -) 40 mg IVPUSH Q8H-IV [facility] Last Admin: 08/12/18 01:41 Dose: 40 mg Metoprolol Tartrate (Lopressor Injection -) 5 mg IVPUSH Q4H PRN PRN Reason: HYPERTENSION Last Admin: 07/31/18 17:24 Dose: 5 mg Metoprolol Tartrate (Lopressor -) 25 mg PO BID [facility] Last Admin: 08/11/18 21:21 Dose: 25 mg Multivitamins/Minerals/Vitamin C (Tab-A-Vit -) 1 tab PO DAILY [facility] Last Admin: 08/11/18 09:49 Dose: 1 tab Pantoprazole Sodium (Protonix Iv) 40 mg IVPUSH DAILY [facility] Last Admin: 08/11/18 09:48 Dose: 40 mg Polyethylene Glycol (Miralax (For Daily Use) -) 17 gm PO DAILY [facility] Last Admin: 08/11/18 09:49 Dose: 17 gm Potassium Chloride (K-Dur -) 20 meq PO DAILY [facility] Last Admin: 08/11/18 09:49 Dose: 20 meq Ranitidine HCl (Zantac -) 150 mg PO DAILY [facility] Last Admin: 08/11/18 09:49 Dose: 150 mg Rosuvastatin Calcium (Crestor -) 20 mg PO HS [facility] Last Admin: 08/11/18 21:21 Dose: 20 mg - Objective Vital Signs: Vital Signs Temperature 98.1 F 08/12/18 05:00 Pulse Rate 74 08/12/18 05:00 Respiratory Rate 22 H 08/12/18 05:00 Blood Pressure 142/76 08/12/18 05:00 O2 Sat by Pulse Oximetry (%) 96 08/12/18 05:30 Constitutional: Yes: Anxious Eyes: Yes: Conjunctiva Clear HENT: Yes: Atraumatic Neck: Yes: Supple Cardiovascular: Yes: Regular Rate and Rhythm Respiratory: Yes: Rales, Rhonchi Gastrointestinal: Yes: Soft. No: Tenderness Genitourinary: No: Hematuria Musculoskeletal: No: Joint Stiffness, Joint Swelling Extremities: No: Cold, Cool, Cyanosis Edema: No Integumentary: No: Rash, Venous Stasis Changes Neurological: Yes: WNL, Alert, Oriented ...Motor Strength: WNL Psychiatric: Yes: WNL, Alert, Oriented. No: Agitated, Suicidal Ideation Labs: CBC, BMP 08/12/18 05:30 08/12/18 05:30 INR, PTT INR 1.05 (0.83-1.09) 08/12/18 05:30 Fibrinogen 114.0 mg/dL (238-498) L 08/12/18 05:30 - ....Imaging Other: Report Reviewed Assessment/Plan The patient is an 82 year old female with a PMH of COPD (on 2L), Stage 3a NSCC ( currently on radiation), CAD s/p [place] (s/p cardiac stent x3), HTN, HLD \admitted with acute onset of shortness of breath, acute on chronic COPD exac and bronchitis, new L sided PNA and metastatic ds lung, liver bones; borderline + troponins h/o ASHD stent, high BNP h/o CHF low EF, s/p hemoptysis and low GIB; new onset rapid AFib, low Platelets and anemia - s/p 2 U PRBC and sq lovenox stopped. f/u labs and CXR iv steroids, taper nebs, O2 BGM, sq insulin prn PULM, Cardiology f/u HR control; ONC f/u miralax prn DVT pfx TEDs and SCDs (on both legs) no AC b/o low PLT falls PFX, gastric, DVT aspiration PFX; turn q1-2h in bed; air mattress d/w staff prognosis guarded d/w pt about advanced directives she will think about it; called pt's grand son Ti d/w pt and staff
[2018-08-12] MEDS: METOPROLOL TARTRATE 25 MG TABLET (FP) PO SCH ×2 (09:19→21:57)
[2018-08-12] MEDS: LACTOBACILLUS ACIDOPHILUS 1 TABLET PO SCH (09:19)
[2018-08-12] MEDS: ALPRAZolam 0.25 MG TABLET PO PRN ×2 (09:19→17:12)
[2018-08-12] MEDS: GABAPENTIN 100 MG CAPSULE (FP) PO SCH (09:19)
[2018-08-12] MEDS: PANTOPRAZOLE SODIUM 40 MG VIAL IVPUSH SCH (09:19)
[2018-08-12] MEDS: POLYETHYLENE GLYCOL 3350 119 GM BTL PO SCH (09:20)
[2018-08-12] MEDS: POTASSIUM CHLORIDE TABS 20 MEQ TABLET.ER (FP) PO SCH (09:20)
[2018-08-12] MEDS: RANITIDINE HCL 150 MG TABLET (FP) PO SCH (09:20)
[2018-08-12] MEDS: MULTIVITAMINS (DAILY MVI) TABLET (FP) PO SCH (09:20)
[2018-08-12] MEDS: guaiFENesin 600 MG TABLET.ER (FP) PO SCH ×2 (09:20→21:57)
[2018-08-12] MEDS: BUDESONIDE/FORMETEROL FUMARATE 80/4.5 mcg INHALER IH SCH ×2 (09:21→21:57)
--- NOTE | 2018-08-12 10:17 | PN ---
Progress Note, Physician History of Present Illness: pulmonary no change remains dyspneic on bipap - Current Medication List Current Medications: Active Medications Acetaminophen (Tylenol -) 650 mg PO Q6H PRN PRN Reason: PAIN Last Admin: 08/11/18 09:52 Dose: 650 mg Albuterol Sulfate (Ventolin 0.083% Nebulizer Soln -) 1 amp NEB Q4H PRN PRN Reason: SHORT OF BREATH/WHEEZING Albuterol/Ipratropium (Duoneb -) 1 amp NEB RQ4H [facility] Last Admin: 08/12/18 07:30 Dose: 1 amp Alprazolam (Xanax -) 0.25 mg PO Q8H PRN PRN Reason: ANXIETY Last Admin: 08/12/18 09:19 Dose: 0.25 mg Budesonide/Formoterol Fumarate (Symbicort 80/4.5mcg -) 2 puff IH BID [facility] Last Admin: 08/12/18 09:21 Dose: 2 puff Diltiazem HCl (Cardizem -) 30 mg PO TID [facility] Last Admin: 08/12/18 06:02 Dose: 30 mg Gabapentin (Neurontin -) 100 mg PO DAILY [facility] Last Admin: 08/12/18 09:19 Dose: 100 mg Guaifenesin (Mucinex -) 600 mg PO BID [facility] Last Admin: 08/12/18 09:20 Dose: 600 mg Guaifenesin (Robitussin -) 10 ml PO Q6H PRN PRN Reason: COUGH Insulin Aspart (Novolog Vial Sliding Scale -) 1 vial SQ ACHS [facility]; Protocol Last Admin: 08/12/18 06:03 Dose: Not Given Lactobacillus Acidophilus (Bacid -) 1 tab PO DAILY [facility] Last Admin: 08/12/18 09:19 Dose: 1 tab Methylprednisolone Sodium Succinate (Solu-Medrol -) 40 mg IVPUSH Q8H-IV [facility] Last Admin: 08/12/18 09:19 Dose: 40 mg Metoprolol Tartrate (Lopressor Injection -) 5 mg IVPUSH Q4H PRN PRN Reason: HYPERTENSION Last Admin: 07/31/18 17:24 Dose: 5 mg Metoprolol Tartrate (Lopressor -) 25 mg PO BID [facility] Last Admin: 08/12/18 09:19 Dose: 25 mg Multivitamins/Minerals/Vitamin C (Tab-A-Vit -) 1 tab PO DAILY [facility] Last Admin: 08/12/18 09:20 Dose: 1 tab Pantoprazole Sodium (Protonix Iv) 40 mg IVPUSH DAILY [facility] Last Admin: 08/12/18 09:19 Dose: 40 mg Polyethylene Glycol (Miralax (For Daily Use) -) 17 gm PO DAILY [facility] Last Admin: 08/12/18 09:20 Dose: Not Given Potassium Chloride (K-Dur -) 20 meq PO DAILY [facility] Last Admin: 08/12/18 09:20 Dose: Not Given Ranitidine HCl (Zantac -) 150 mg PO DAILY [facility] Last Admin: 08/12/18 09:20 Dose: 150 mg Rosuvastatin Calcium (Crestor -) 20 mg PO HS [facility] Last Admin: 08/11/18 21:21 Dose: 20 mg - Objective Vital Signs: Vital Signs Temperature 98.1 F 08/12/18 05:00 Pulse Rate 74 08/12/18 05:00 Respiratory Rate 22 H 08/12/18 05:00 Blood Pressure 142/76 08/12/18 05:00 O2 Sat by Pulse Oximetry (%) 97 08/12/18 09:18 Constitutional: Yes: Well Nourished, Calm Eyes: Yes: WNL HENT: Yes: WNL Neck: Yes: Supple Cardiovascular: Yes: Pulse Irregular, S1, S2 Respiratory: Yes: Diminished Gastrointestinal: Yes: Normal Bowel Sounds, Soft Extremities: Yes: WNL Edema: No Labs: CBC, BMP 08/12/18 05:30 08/12/18 05:30 INR, PTT INR 1.05 (0.83-1.09) 08/12/18 05:30 Fibrinogen 114.0 mg/dL (238-498) L 08/12/18 05:30 Assessment/Plan Problem List - Problems (1) Adenocarcinoma, lung Code(s): C34.90 - MALIGNANT NEOPLASM OF UNSP PART OF UNSP BRONCHUS OR LUNG (2) ASHD (arteriosclerotic heart disease) Code(s): I25.10 - ATHSCL HEART DISEASE OF [place] CORONARY ARTERY W/O ANG PCTRS (3) Anxiety and depression Code(s): F41.9 - ANXIETY DISORDER, UNSPECIFIED; F32.9 - MAJOR DEPRESSIVE DISORDER, SINGLE EPISODE, UNSPECIFIED (4) COPD (chronic obstructive pulmonary disease) Code(s): J44.9 - CHRONIC OBSTRUCTIVE PULMONARY DISEASE, UNSPECIFIED Qualifiers: COPD type: unspecified COPD Qualified Code(s): J44.9 - Chronic obstructive pulmonary disease, unspecified (5) COPD exacerbation Code(s): J44.1 - CHRONIC OBSTRUCTIVE PULMONARY DISEASE W (ACUTE) EXACERBATION (6) Cough Code(s): R05 - COUGH (7) Diastolic CHF Code(s): I50.30 - UNSPECIFIED DIASTOLIC (CONGESTIVE) HEART FAILURE (8) HTN (hypertension) Code(s): I10 - ESSENTIAL (PRIMARY) HYPERTENSION (9) Hyperlipidemia Code(s): E78.5 - HYPERLIPIDEMIA, UNSPECIFIED (10) Hypothyroid Code(s): E03.9 - HYPOTHYROIDISM, UNSPECIFIED (11) Shortness of breath Code(s): R06.02 - SHORTNESS OF BREATH A/P Acute COPD Exacerbation s/p RT session NSCLC - Adenocarcinoma mets to rib/liver LV Diastolic Dysfunction AFIB HTN Hypothyroidism Hyperlipidemia Thrombocytopenia - medrol taper - inhaled bronchodilators - DVT prophylaxis - continue bipap ,O2 - monitor lytes,na - monitor cbc,plt ct - overall prognosis poor DR CARDOSO
[2018-08-12 11:21] LABS: ACANTHOCYTES 0; ANISOCYTOSIS 0; HELMET CELLS 0; HOWELL-JOLLY BODIES 0; MACROCYTOSIS 0; OVALOCYTE 0; PLATELET ESTIMATE DECREASED; ROULEAU 0; SICKELED CELLS 0; TARGET CELLS 0; TEAR DROP CELLS 0; TOXIC GRANULATION 0
--- NOTE | 2018-08-12 12:59 | PN ---
Progress Note, Physician Chief Complaint: sob History of Present Illness: The patient is an 82 year old white female with a PMH of COPD (on 2L), Stage 3a NSCC lung cancer (currently on radiation), CAD s/p PA (s/p cardiac stent x3), HTN, HLD was BIBEMS for acute onset of shortness of breath. Patient was completing her first radiation treatment today when she suddenly became short of breath. Denies chest pain, lightheadedness, nausea, diaphoresis. Grandson @ bedside assists in history, notes patient has been taking her Albuterol inhaler multiple times daily. Recent medication addition of Symbicort to her daily regimen. History limited as patient tachycardic, tachypneic @ presentation. NKDA Surgical: Cardiac Stent x3, lung biopsy PMD: Dr. Mary Beth Stein Cardiology: Dr. Bah Pulmonology: Dr. Kern/Dr. Velazquez - Current Medication List Current Medications: Active Medications Acetaminophen (Tylenol -) 650 mg PO Q6H PRN PRN Reason: PAIN Last Admin: 08/11/18 09:52 Dose: 650 mg Albuterol Sulfate (Ventolin 0.083% Nebulizer Soln -) 1 amp NEB Q4H PRN PRN Reason: SHORT OF BREATH/WHEEZING Albuterol/Ipratropium (Duoneb -) 1 amp NEB RQ4H JOHN Last Admin: 08/12/18 11:30 Dose: 1 amp Alprazolam (Xanax -) 0.25 mg PO Q8H PRN PRN Reason: ANXIETY Last Admin: 08/12/18 09:19 Dose: 0.25 mg Budesonide/Formoterol Fumarate (Symbicort 80/4.5mcg -) 2 puff IH BID [facility] Last Admin: 08/12/18 09:21 Dose: 2 puff Diltiazem HCl (Cardizem -) 30 mg PO TID [facility] Last Admin: 08/12/18 06:02 Dose: 30 mg Gabapentin (Neurontin -) 100 mg PO DAILY [facility] Last Admin: 08/12/18 09:19 Dose: 100 mg Guaifenesin (Mucinex -) 600 mg PO BID [facility] Last Admin: 08/12/18 09:20 Dose: 600 mg Guaifenesin (Robitussin -) 10 ml PO Q6H PRN PRN Reason: COUGH Insulin Aspart (Novolog Vial Sliding Scale -) 1 vial SQ ACHS [facility]; Protocol Last Admin: 08/12/18 11:26 Dose: Not Given Lactobacillus Acidophilus (Bacid -) 1 tab PO DAILY [facility] Last Admin: 08/12/18 09:19 Dose: 1 tab Methylprednisolone Sodium Succinate (Solu-Medrol -) 40 mg IVPUSH BID [facility] Metoprolol Tartrate (Lopressor Injection -) 5 mg IVPUSH Q4H PRN PRN Reason: HYPERTENSION Last Admin: 07/31/18 17:24 Dose: 5 mg Metoprolol Tartrate (Lopressor -) 25 mg PO BID [facility] Last Admin: 08/12/18 09:19 Dose: 25 mg Multivitamins/Minerals/Vitamin C (Tab-A-Vit -) 1 tab PO DAILY [facility] Last Admin: 08/12/18 09:20 Dose: 1 tab Pantoprazole Sodium (Protonix Iv) 40 mg IVPUSH DAILY [facility] Last Admin: 08/12/18 09:19 Dose: 40 mg Polyethylene Glycol (Miralax (For Daily Use) -) 17 gm PO DAILY [facility] Last Admin: 08/12/18 09:20 Dose: Not Given Potassium Chloride (K-Dur -) 20 meq PO DAILY [facility] Last Admin: 08/12/18 09:20 Dose: Not Given Ranitidine HCl (Zantac -) 150 mg PO DAILY [facility] Last Admin: 08/12/18 09:20 Dose: 150 mg Rosuvastatin Calcium (Crestor -) 20 mg PO HS [facility] Last Admin: 08/11/18 21:21 Dose: 20 mg - Objective Vital Signs: Vital Signs Temperature 98 F 08/12/18 09:00 Pulse Rate 78 08/12/18 09:00 Respiratory Rate 22 H 08/12/18 09:00 Blood Pressure 140/70 08/12/18 09:00 O2 Sat by Pulse Oximetry (%) 97 08/12/18 09:18 Eyes: Yes: WNL, Conjunctiva Clear, EOM Intact HENT: Yes: WNL, Atraumatic, Normocephalic Neck: Yes: WNL, Supple, Trachea Midline Cardiovascular: Yes: WNL, Regular Rate and Rhythm Respiratory: Yes: Diminished, On BiPap Gastrointestinal: Yes: WNL, Normal Bowel Sounds Genitourinary: Yes: WNL Musculoskeletal: Yes: WNL Extremities: Yes: WNL Edema: No Integumentary: Yes: WNL Neurological: Yes: WNL, Alert, Oriented ...Motor Strength: WNL Psychiatric: Yes: WNL Labs: CBC, BMP 08/12/18 05:30 08/12/18 05:30 INR, PTT INR 1.05 (0.83-1.09) 08/12/18 05:30 Fibrinogen 114.0 mg/dL (238-498) L 08/12/18 05:30 Assessment/Plan - Problems (1) Elevated troponin I level Assessment/Plan: EKG: NSR Pt likely has demand ischemia from exacerbation of COPD, diastolic CHF, CA, tachycardia. Given pt's advanced lung CA, would recommend conservative management of cardiac condition (she is on metoprolol, diltiazem, statin, ASA, Lovenox) Code(s): R74.8 - ABNORMAL LEVELS OF OTHER SERUM ENZYMES (2) Adenocarcinoma, lung Assessment/Plan: Advanced CA, with bone and liver metastases. F/u with hem/onc. Code(s): C34.90 - MALIGNANT NEOPLASM OF UNSP PART OF UNSP BRONCHUS OR LUNG (3) Shortness of breath Assessment/Plan: On IV steroids (attempt to decrease dosing), bronchodilators, O2 per warehouse attendant. Code(s): R06.02 - SHORTNESS OF BREATH (4) HTN (hypertension) Assessment/Plan: On metoprolol, diltiazem, and furosemide. Code(s): I10 - ESSENTIAL (PRIMARY) HYPERTENSION (5) Hyperlipidemia Assessment/Plan: on statin Code(s): E78.5 - HYPERLIPIDEMIA, UNSPECIFIED (6) Acute on chronic diastolic CHF (congestive heart failure) Assessment/Plan: On metoprolol, diltiazem, and Furosemide f/u BUn/Cr, electrolytes, daily weight, Is and Os. Code(s): I50.33 - ACUTE ON CHRONIC DIASTOLIC (CONGESTIVE) HEART FAILURE (7) Thrombocytopenia Assessment/Plan: Developed during this admission. Off ASA, anticoagulants; platelets remain low. Code(s): D69.6 - THROMBOCYTOPENIA, UNSPECIFIED (8) Atrial fibrillation Assessment/Plan: On metoprolol and diltiazem HR control. Off anticoagulants and antiplatelets (thrombocytopenia; anemia-->PRBCx). Code(s): I48.91 - UNSPECIFIED ATRIAL FIBRILLATION
[2018-08-12] MEDS: ACETAMINOPHEN 325 MG TABLET (FP) PO PRN (13:00)
--- NOTE | 2018-08-12 16:32 | PN ---
Physical Exam: SUBJECTIVE: Patient seen and examined; no acute events ON; off biPAP this am and now on venti mask 40%with O@ sat 95%; states her breathing has improved; cough improved; denies fever, chills. C/O low back/buttock pain due to her decubiti. OBJECTIVE: Vital Signs Period Temp Pulse Resp BP Sys/Armenta Pulse Ox Last 24 Hr 97.4 F-98.2 F 72-81 22-31 122-152/57-76 93-97 GENERAL: The patient is awake, alert, and fully oriented, in no acute distress. LUNGS: decreased breath sounds throughout lung herbert; no crackles HEART: Regular rate and rhythm, S1, S2 without murmur, rub or gallop. ABDOMEN: Soft, nontender, nondistended, normoactive bowel sounds, no guarding, no rebound, no hepatosplenomegaly, no masses. EXTREMITIES: 2+ pulses, warm, well-perfused, no edema. NEUROLOGICAL: Cranial nerves II through XII grossly intact. Normal speech, gait not observed. Laboratory Results - last 24 hr 08/11/18 08/12/18 08/12/18 21:24 05:21 05:30 WBC 16.5 H RBC 3.99 Hgb 12.0 Hct 35.8 MCV 89.6 MCH 30.1 MCHC 33.6 RDW 15.5 Plt Count 45 L MPV 10.3 Absolute Neuts (auto) 15.9 H Neutrophils % 96.4 H Neutrophils % (Manual) 97.1 H Band Neutrophils % 1.0 Lymphocytes % 0.6 L Lymphocytes % (Manual) 0.0 L Monocytes % 1.9 L Monocytes % (Manual) 1 L Eosinophils % 0.0 Eosinophils % (Manual) 0.0 Basophils % 1.1 Basophils % (Manual) 0.0 Myelocytes % (Man) 0 Promyelocytes % (Man) 0 Blast Cells % (Manual) 0 Nucleated RBC % 0 Metamyelocytes 0 Hypochromia 0 Toxic Granulation 0 Dohle Bodies 0 Platelet Estimate Decreased Polychromasia 0 Poikilocytosis 0 Basophilic Stippling 0 Anisocytosis 0 Microcytosis 0 Macrocytosis 0 Spherocytes 0 Sickle Cells 0 Target Cells 0 Tear Drop Cells 0 Ovalocytes 0 Stomatocytes 0 Helmet Cells 0 [place] Bodies 0 [place] Rings 0 [place] Cells 0 Acanthocytes (Spur) 0 Rouleaux 0 Fragmented RBCs 0 Schistocytes 0 PT with INR INR PTT (Actin FS) Fibrinogen Sodium Potassium Chloride Carbon Dioxide Anion Gap BUN Creatinine Creat Clearance w eGFR POC Glucometer 211 116 Random Glucose Calcium Total Bilirubin AST ALT Alkaline Phosphatase Total Protein Albumin 08/12/18 08/12/18 08/12/18 05:30 05:30 05:30 WBC RBC Hgb Hct MCV MCH MCHC RDW Plt Count MPV Absolute Neuts (auto) Neutrophils % Neutrophils % (Manual) Band Neutrophils % Lymphocytes % Lymphocytes % (Manual) Monocytes % Monocytes % (Manual) Eosinophils % Eosinophils % (Manual) Basophils % Basophils % (Manual) Myelocytes % (Man) Promyelocytes % (Man) Blast Cells % (Manual) Nucleated RBC % Metamyelocytes Hypochromia Toxic Granulation Dohle Bodies Platelet Estimate Polychromasia Poikilocytosis Basophilic Stippling Anisocytosis Microcytosis Macrocytosis Spherocytes Sickle Cells Target Cells Tear Drop Cells Ovalocytes Stomatocytes Helmet Cells [place] Bodies [place] Rings [place] Cells Acanthocytes (Spur) Rouleaux Fragmented RBCs Schistocytes PT with INR 12.40 INR 1.05 PTT (Actin FS) 21.1 L Fibrinogen 114.0 L Sodium 140 Potassium 5.0 Chloride 100 Carbon Dioxide 36 H Anion Gap 5 L BUN 56 H Creatinine 0.8 Creat Clearance w eGFR > 60 POC Glucometer Random Glucose 110 H Calcium 9.5 Total Bilirubin 1.4 H AST 48 H ALT 146 H Alkaline Phosphatase 138 H Total Protein 5.4 L Albumin 3.2 L 08/12/18 11:24 WBC RBC Hgb Hct MCV MCH MCHC RDW Plt Count MPV Absolute Neuts (auto) Neutrophils % Neutrophils % (Manual) Band Neutrophils % Lymphocytes % Lymphocytes % (Manual) Monocytes % Monocytes % (Manual) Eosinophils % Eosinophils % (Manual) Basophils % Basophils % (Manual) Myelocytes % (Man) Promyelocytes % (Man) Blast Cells % (Manual) Nucleated RBC % Metamyelocytes Hypochromia Toxic Granulation Doh[place] Bodies Platelet Estimate Polychromasia Poikilocytosis Basophilic Stippling Anisocytosis Microcytosis Macrocytosis Spherocytes Sickle Cells Target Cells Tear Drop Cells Ovalocytes Stomatocytes Helmet Cells [place] Bodies [place] Rings [place] Cells Acanthocytes (Spur) Rouleaux Fragmented RBCs Schistocytes PT with INR INR PTT (Actin FS) Fibrinogen Sodium Potassium Chloride Carbon Dioxide Anion Gap BUN Creatinine Creat Clearance w eGFR POC Glucometer 125 Random Glucose Calcium Total Bilirubin AST ALT Alkaline Phosphatase Total Protein Albumin Active Medications Generic Name Dose Route Start Last Admin Trade Name Freq PRN Reason Stop Dose Admin Acetaminophen 650 mg 08/03/18 08:32 08/12/18 13:00 Tylenol - PO 650 mg Q6H PRN Administration PAIN Albuterol Sulfate 1 amp 08/01/18 12:27 Ventolin 0.083% Nebulizer Soln - NEB Q4H PRN SHORT OF BREATH/WHEEZING Albuterol/Ipratropium 1 amp 08/01/18 16:00 08/12/18 15:59 Duoneb - NEB 1 amp RQ4H JOHN Administration Alprazolam 0.25 mg 08/03/18 08:32 08/12/18 09:19 Xanax - PO 0.25 mg Q8H PRN Administration ANXIETY Budesonide/Formoterol Fumarate 2 puff 08/03/18 10:00 08/12/18 09:21 Symbicort 80/4.5mcg - IH 2 puff BID JOHN Administration Diltiazem HCl 30 mg 07/31/18 00:45 08/12/18 13:00 Cardizem - PO 30 mg TID JOHN Administration Gabapentin 100 mg 08/03/18 10:00 08/12/18 09:19 Neurontin - PO 100 mg DAILY JOHN Administration Guaifenesin 600 mg 07/28/18 10:00 08/12/18 09:20 Mucinex - PO 600 mg BID JOHN Administration Guaifenesin 10 ml 08/03/18 08:32 Robitussin - PO Q6H PRN COUGH Insulin Aspart 1 vial 07/30/18 16:30 08/12/18 11:26 Novolog Vial Sliding Scale - SQ Not Given ACHS JOHN Protocol Lactobacillus Acidophilus 1 tab 07/29/18 10:00 08/12/18 09:19 Bacid - PO 1 tab DAILY JOHN Administration Methylprednisolone Sodium Succinate 40 mg 08/12/18 22:00 Solu-Medrol - IVPUSH BID JOHN Metoprolol Tartrate 5 mg 07/30/18 22:52 07/31/18 17:24 Lopressor Injection - IVPUSH 5 mg Q4H PRN Administration HYPERTENSION Metoprolol Tartrate 25 mg 08/03/18 10:00 08/12/18 09:19 Lopressor - PO 25 mg BID JOHN Administration Multivitamins/Minerals/Vitamin C 1 tab 08/06/18 10:00 08/12/18 09:20 Tab-A-Vit - PO 1 tab DAILY JOHN Administration Pantoprazole Sodium 40 mg 08/03/18 10:00 08/12/18 09:19 Protonix Iv IVPUSH 40 mg DAILY JOHN Administration Polyethylene Glycol 17 gm 08/09/18 20:00 08/12/18 09:20 Miralax (For Daily Use) - PO Not Given DAILY JOHN Potassium Chloride 20 meq 08/04/18 12:00 08/12/18 09:20 K-Dur - PO Not Given DAILY JOHN Ranitidine HCl 150 mg 08/03/18 10:00 08/12/18 09:20 Zantac - PO 150 mg DAILY JOHN Administration Rosuvastatin Calcium 20 mg 08/03/18 22:00 08/11/18 21:21 Crestor - PO 20 mg HS JOHN Administration ASSESSMENT/PLAN: This is a 82 year old female with a history of COPD on home O2, CAD, dCHF, chronic thrombocytopenia and recently dx'd lung adenocarcinoma (found to have metastatic liver and bone involvement) admitted with SOB after 1st RT treatment. #[place] of lung l#iver mets #thrombocytopenia #COPD #PNA -platelets improving; cont to monitor -no active signs of bleeding -cont O2 supplementation -broncodialtors, steroids, monitor off antibiotics will continue to follow Visit type - Emergency Visit Emergency Visit: Yes ED Registration Date: 07/08/18 Care time: The patient presented to the Emergency Department on the above date and was hospitalized for further evaluation of their emergent condition. - New Patient This patient is new to me today: Yes Date on this admission: 08/12/18 - Critical Care Critical Care patient: No
[2018-08-12] MEDS: ROSUVASTATIN CA 20 MG TABLET (FP) PO SCH (21:57)
[2018-08-13] MEDS: ALBUTEROL SO4 2.5/IPRATROPIUM 0.5 INH SOL 3 ML VIAL.NEB. NEB SCH ×6 (00:15→20:40)
[2018-08-13] MEDS: ALPRAZolam 0.25 MG TABLET PO PRN ×3 (01:11→18:46)
[2018-08-13] MEDS: INSULIN SLIDING SCALE (NOVOLOG) 1 VIAL SQ SCH ×4 (06:43→21:55)
[2018-08-13] MEDS: dilTIAZem HCL 30 MG TABLET (FP) PO SCH ×3 (06:43→21:48)
--- NOTE | 2018-08-13 07:16 | PN ---
Progress Note, Physician Chief Complaint: feels a little better now but had hard time breathing earlier signed DNR DNI in presence of palliative care and Ti aware of implications - dw Will he agrees with DNR DNI said according to her prior wishes she does not want intubation and cardiac resuscitation or aggressive measures, wants comfort care - Current Medication List Current Medications: Active Medications Acetaminophen (Tylenol -) 650 mg PO Q6H PRN PRN Reason: PAIN Last Admin: 08/12/18 13:00 Dose: 650 mg Albuterol Sulfate (Ventolin 0.083% Nebulizer Soln -) 1 amp NEB Q4H PRN PRN Reason: SHORT OF BREATH/WHEEZING Albuterol/Ipratropium (Duoneb -) 1 amp NEB RQ4H JOHN Last Admin: 08/13/18 04:00 Dose: 1 amp Alprazolam (Xanax -) 0.25 mg PO Q8H PRN PRN Reason: ANXIETY Last Admin: 08/13/18 01:11 Dose: 0.25 mg Budesonide/Formoterol Fumarate (Symbicort 80/4.5mcg -) 2 puff IH BID [facility] Last Admin: 08/12/18 21:57 Dose: 2 puff Diltiazem HCl (Cardizem -) 30 mg PO TID [facility] Last Admin: 08/13/18 06:43 Dose: 30 mg Gabapentin (Neurontin -) 100 mg PO DAILY [facility] Last Admin: 08/12/18 09:19 Dose: 100 mg Guaifenesin (Mucinex -) 600 mg PO BID [facility] Last Admin: 08/12/18 21:57 Dose: 600 mg Guaifenesin (Robitussin -) 10 ml PO Q6H PRN PRN Reason: COUGH Insulin Aspart (Novolog Vial Sliding Scale -) 1 vial SQ ACHS [facility]; Protocol Last Admin: 08/13/18 06:43 Dose: 2 units Lactobacillus Acidophilus (Bacid -) 1 tab PO DAILY [facility] Last Admin: 08/12/18 09:19 Dose: 1 tab Methylprednisolone Sodium Succinate (Solu-Medrol -) 40 mg IVPUSH BID [facility] Last Admin: 08/12/18 21:57 Dose: 40 mg Metoprolol Tartrate (Lopressor Injection -) 5 mg IVPUSH Q4H PRN PRN Reason: HYPERTENSION Last Admin: 07/31/18 17:24 Dose: 5 mg Metoprolol Tartrate (Lopressor -) 25 mg PO BID [facility] Last Admin: 08/12/18 21:57 Dose: 25 mg Multivitamins/Minerals/Vitamin C (Tab-A-Vit -) 1 tab PO DAILY [facility] Last Admin: 08/12/18 09:20 Dose: 1 tab Pantoprazole Sodium (Protonix Iv) 40 mg IVPUSH DAILY [facility] Last Admin: 08/12/18 09:19 Dose: 40 mg Polyethylene Glycol (Miralax (For Daily Use) -) 17 gm PO DAILY [facility] Last Admin: 08/12/18 09:20 Dose: Not Given Potassium Chloride (K-Dur -) 20 meq PO DAILY [facility] Last Admin: 08/12/18 09:20 Dose: Not Given Ranitidine HCl (Zantac -) 150 mg PO DAILY [facility] Last Admin: 08/12/18 09:20 Dose: 150 mg Rosuvastatin Calcium (Crestor -) 20 mg PO HS [facility] Last Admin: 08/12/18 21:57 Dose: 20 mg - Objective Vital Signs: Vital Signs Temperature 98.1 F 08/13/18 01:23 Pulse Rate 101 H 08/13/18 01:23 Respiratory Rate 20 08/13/18 01:23 Blood Pressure 138/67 08/13/18 01:23 O2 Sat by Pulse Oximetry (%) 96 08/12/18 21:00 Constitutional: Yes: Calm Eyes: Yes: Conjunctiva Clear HENT: Yes: Atraumatic Neck: Yes: Supple Cardiovascular: Yes: Regular Rate and Rhythm Respiratory: Yes: Rales Gastrointestinal: Yes: Soft. No: Tenderness Genitourinary: No: CVA Tenderness - Left, CVA Tenderness - Right Musculoskeletal: No: Joint Stiffness, Joint Swelling Extremities: No: Cold, Cool Edema: No Integumentary: No: Rash, Venous Stasis Changes Neurological: Yes: WNL, Alert, Oriented ...Motor Strength: WNL Psychiatric: Yes: WNL, Alert, Oriented. 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 f/u labs and CXR iv steroids, taper nebs, O2 BGM, sq insulin prn PULM, Cardiology f/u HR control; ONC f/u miralax prn DVT pfx TEDs and SCDs (on both legs) no AC b/o low PLT falls PFX, gastric, DVT aspiration PFX; turn q1-2h in bed; air mattress d/w staff prognosis guarded d/w pt about advanced directives she signed DNR DNI; I called pt's grand son Ti he agrees with DNR DNI and signed too d/w pt and staff
[2018-08-13] MEDS: MULTIVITAMINS (DAILY MVI) TABLET (FP) PO SCH (10:09)
[2018-08-13] MEDS: POTASSIUM CHLORIDE TABS 20 MEQ TABLET.ER (FP) PO SCH (10:09)
[2018-08-13] MEDS: PANTOPRAZOLE SODIUM 40 MG VIAL IVPUSH SCH (10:09)
[2018-08-13] MEDS: METOPROLOL TARTRATE 25 MG TABLET (FP) PO SCH ×2 (10:09→21:48)
[2018-08-13] MEDS: GABAPENTIN 100 MG CAPSULE (FP) PO SCH (10:09)
[2018-08-13] MEDS: guaiFENesin 600 MG TABLET.ER (FP) PO SCH ×2 (10:09→21:48)
[2018-08-13] MEDS: RANITIDINE HCL 150 MG TABLET (FP) PO SCH (10:09)
[2018-08-13] MEDS: LACTOBACILLUS ACIDOPHILUS 1 TABLET PO SCH (10:09)
[2018-08-13] MEDS: methylPREDNISolone NA SUCC 40 MG/1 ML VIAL IVPUSH SCH ×2 (10:10→21:48)
[2018-08-13] MEDS: BUDESONIDE/FORMETEROL FUMARATE 80/4.5 mcg INHALER IH SCH ×2 (10:10→21:56)
--- NOTE | 2018-08-13 12:08 | PN ---
Progress Note, Physician History of Present Illness: pulmonary alert,less dyspneic,remains on bipap alt with venti mask - Current Medication List Current Medications: Active Medications Acetaminophen (Tylenol -) 650 mg PO Q6H PRN PRN Reason: PAIN Last Admin: 08/12/18 13:00 Dose: 650 mg Albuterol Sulfate (Ventolin 0.083% Nebulizer Soln -) 1 amp NEB Q4H PRN PRN Reason: SHORT OF BREATH/WHEEZING Albuterol/Ipratropium (Duoneb -) 1 amp NEB RQ4H JOHN Last Admin: 08/13/18 11:29 Dose: 1 amp Alprazolam (Xanax -) 0.25 mg PO Q8H PRN PRN Reason: ANXIETY Last Admin: 08/13/18 01:11 Dose: 0.25 mg Budesonide/Formoterol Fumarate (Symbicort 80/4.5mcg -) 2 puff IH BID [facility] Last Admin: 08/13/18 10:10 Dose: 2 puff Diltiazem HCl (Cardizem -) 30 mg PO TID [facility] Last Admin: 08/13/18 06:43 Dose: 30 mg Gabapentin (Neurontin -) 100 mg PO DAILY [facility] Last Admin: 08/13/18 10:09 Dose: 100 mg Guaifenesin (Mucinex -) 600 mg PO BID [facility] Last Admin: 08/13/18 10:09 Dose: 600 mg Guaifenesin (Robitussin -) 10 ml PO Q6H PRN PRN Reason: COUGH Insulin Aspart (Novolog Vial Sliding Scale -) 1 vial SQ ACHS [facility]; Protocol Last Admin: 08/13/18 06:43 Dose: 2 units Lactobacillus Acidophilus (Bacid -) 1 tab PO DAILY [facility] Last Admin: 08/13/18 10:09 Dose: 1 tab Methylprednisolone Sodium Succinate (Solu-Medrol -) 40 mg IVPUSH BID [facility] Last Admin: 08/13/18 10:10 Dose: 40 mg Metoprolol Tartrate (Lopressor Injection -) 5 mg IVPUSH Q4H PRN PRN Reason: HYPERTENSION Last Admin: 07/31/18 17:24 Dose: 5 mg Metoprolol Tartrate (Lopressor -) 25 mg PO BID [facility] Last Admin: 08/13/18 10:09 Dose: 25 mg Multivitamins/Minerals/Vitamin C (Tab-A-Vit -) 1 tab PO DAILY [facility] Last Admin: 08/13/18 10:09 Dose: 1 tab Pantoprazole Sodium (Protonix Iv) 40 mg IVPUSH DAILY [facility] Last Admin: 08/13/18 10:09 Dose: 40 mg Polyethylene Glycol (Miralax (For Daily Use) -) 17 gm PO DAILY [facility] Last Admin: 08/12/18 09:20 Dose: Not Given Potassium Chloride (K-Dur -) 20 meq PO DAILY [facility] Last Admin: 08/13/18 10:09 Dose: 20 meq Ranitidine HCl (Zantac -) 150 mg PO DAILY [facility] Last Admin: 08/13/18 10:09 Dose: 150 mg Rosuvastatin Calcium (Crestor -) 20 mg PO HS [facility] Last Admin: 08/12/18 21:57 Dose: 20 mg - Objective Vital Signs: Vital Signs Temperature 97.9 F 08/13/18 06:00 Pulse Rate 82 08/13/18 06:00 Respiratory Rate 20 08/13/18 06:00 Blood Pressure 146/67 08/13/18 06:00 O2 Sat by Pulse Oximetry (%) 98 08/13/18 07:57 Constitutional: Yes: Calm, Thin, Other (mildy dyspneic) Eyes: Yes: WNL HENT: Yes: WNL Neck: Yes: WNL Cardiovascular: Yes: Pulse Irregular, S1, S2 Respiratory: Yes: Diminished Gastrointestinal: Yes: Normal Bowel Sounds, Soft Extremities: Yes: WNL Edema: No Labs: CBC, BMP Assessment/Plan Problem List - Problems (1) Adenocarcinoma, lung Code(s): C34.90 - MALIGNANT NEOPLASM OF UNSP PART OF UNSP BRONCHUS OR LUNG (2) ASHD (arteriosclerotic heart disease) Code(s): I25.10 - ATHSCL HEART DISEASE OF [place] CORONARY ARTERY W/O ANG PCTRS (3) Anxiety and depression Code(s): F41.9 - ANXIETY DISORDER, UNSPECIFIED; F32.9 - MAJOR DEPRESSIVE DISORDER, SINGLE EPISODE, UNSPECIFIED (4) COPD (chronic obstructive pulmonary disease) Code(s): J44.9 - CHRONIC OBSTRUCTIVE PULMONARY DISEASE, UNSPECIFIED Qualifiers: COPD type: unspecified COPD Qualified Code(s): J44.9 - Chronic obstructive pulmonary disease, unspecified (5) COPD exacerbation Code(s): J44.1 - CHRONIC OBSTRUCTIVE PULMONARY DISEASE W (ACUTE) EXACERBATION (6) Cough Code(s): R05 - COUGH (7) Diastolic CHF Code(s): I50.30 - UNSPECIFIED DIASTOLIC (CONGESTIVE) HEART FAILURE (8) HTN (hypertension) Code(s): I10 - ESSENTIAL (PRIMARY) HYPERTENSION (9) Hyperlipidemia Code(s): E78.5 - HYPERLIPIDEMIA, UNSPECIFIED (10) Hypothyroid Code(s): E03.9 - HYPOTHYROIDISM, UNSPECIFIED (11) Shortness of breath Code(s): R06.02 - SHORTNESS OF BREATH A/P Acute COPD Exacerbation s/p RT session NSCLC - Adenocarcinoma mets to rib/liver LV Diastolic Dysfunction AFIB HTN Hypothyroidism Hyperlipidemia Thrombocytopenia - medrol - inhaled bronchodilators - DVT prophylaxis - continue bipap alt with vm - monitor lytes,na - monitor cbc,plt ct - overall prognosis poor DR CARDOSO
[2018-08-13] MEDS: POLYETHYLENE GLYCOL 3350 119 GM BTL PO SCH (16:44)
[2018-08-13] MEDS ORDERED: MORPHINE SULFATE 2 MG/ML VIAL IVPB ONE (20:16)
--- NOTE | 2018-08-13 20:19 | PN ---
Progress Note (short form) - Note Progress Note: called by nurse pt is in pain, uncomfortable, moaning; sometimes struggling to breath; will order morphine 0.5 mg ivpb x 1 for tonight; to address in am comfort care
[2018-08-13] MEDS: BACITRACIN 15 GM TUBE TOPICAL OINTMENT TP SCH (21:47)
[2018-08-13] MEDS: ROSUVASTATIN CA 20 MG TABLET (FP) PO SCH (21:48)
[2018-08-14] MEDS: ALBUTEROL SO4 2.5/IPRATROPIUM 0.5 INH SOL 3 ML VIAL.NEB. NEB SCH ×6 (00:22→20:32)
--- NOTE | 2018-08-14 05:29 | PN ---
Progress Note, Physician Chief Complaint: Pt on Bipap; uncomfortable (dyspneid); does not remember how she slept; History of Present Illness: The patient is an 82 year old white female with a PMH of COPD (on 2L), Stage 3a NSCC lung cancer (currently on radiation), CAD s/p [place] (s/p cardiac stent x3), HTN, HLD was BIBEMS for acute onset of shortness of breath. Patient was completing her first radiation treatment today when she suddenly became short of breath. Denies chest pain, lightheadedness, nausea, diaphoresis. Grandson @ bedside assists in history, notes patient has been taking her Albuterol inhaler multiple times daily. Recent medication addition of Symbicort to her daily regimen. History limited as patient tachycardic, tachypneic @ presentation. NKDA Surgical: Cardiac Stent x3, lung biopsy PMD: Dr. Mary Beth Stein Cardiology: Dr. Ortiz Pulmonology: Dr. Kern/Dr. Velazquez - Current Medication List Current Medications: Active Medications Acetaminophen (Tylenol -) 650 mg PO Q6H PRN PRN Reason: PAIN Last Admin: 08/12/18 13:00 Dose: 650 mg Albuterol Sulfate (Ventolin 0.083% Nebulizer Soln -) 1 amp NEB Q4H PRN PRN Reason: SHORT OF BREATH/WHEEZING Albuterol/Ipratropium (Duoneb -) 1 amp NEB RQ4H JOHN Last Admin: 08/14/18 03:59 Dose: 1 amp Alprazolam (Xanax -) 0.25 mg PO Q8H PRN PRN Reason: ANXIETY Last Admin: 08/13/18 18:46 Dose: 0.25 mg Bacitracin (Bacitracin -) 1 applic TP BID [facility] Last Admin: 08/13/18 21:47 Dose: 1 applic Budesonide/Formoterol Fumarate (Symbicort 80/4.5mcg -) 2 puff IH BID [facility] Last Admin: 08/13/18 21:56 Dose: 2 puff Diltiazem HCl (Cardizem -) 30 mg PO TID [facility] Last Admin: 08/13/18 21:48 Dose: 30 mg Gabapentin (Neurontin -) 100 mg PO DAILY [facility] Last Admin: 08/13/18 10:09 Dose: 100 mg Guaifenesin (Mucinex -) 600 mg PO BID [facility] Last Admin: 08/13/18 21:48 Dose: 600 mg Guaifenesin (Robitussin -) 10 ml PO Q6H PRN PRN Reason: COUGH Insulin Aspart (Novolog Vial Sliding Scale -) 1 vial SQ ACHS [facility]; Protocol Last Admin: 08/13/18 21:55 Dose: 2 units Lactobacillus Acidophilus (Bacid -) 1 tab PO DAILY [facility] Last Admin: 08/13/18 10:09 Dose: 1 tab Methylprednisolone Sodium Succinate (Solu-Medrol -) 40 mg IVPUSH BID [facility] Last Admin: 08/13/18 21:48 Dose: 40 mg Metoprolol Tartrate (Lopressor Injection -) 5 mg IVPUSH Q4H PRN PRN Reason: HYPERTENSION Last Admin: 07/31/18 17:24 Dose: 5 mg Metoprolol Tartrate (Lopressor -) 25 mg PO BID [facility] Last Admin: 08/13/18 21:48 Dose: 25 mg Multivitamins/Minerals/Vitamin C (Tab-A-Vit -) 1 tab PO DAILY [facility] Last Admin: 08/13/18 10:09 Dose: 1 tab Pantoprazole Sodium (Protonix Iv) 40 mg IVPUSH DAILY [facility] Last Admin: 08/13/18 10:09 Dose: 40 mg Polyethylene Glycol (Miralax (For Daily Use) -) 17 gm PO DAILY [facility] Last Admin: 08/13/18 16:44 Dose: Not Given Potassium Chloride (K-Dur -) 20 meq PO DAILY [facility] Last Admin: 08/13/18 10:09 Dose: 20 meq Ranitidine HCl (Zantac -) 150 mg PO DAILY [facility] Last Admin: 08/13/18 10:09 Dose: 150 mg Rosuvastatin Calcium (Crestor -) 20 mg PO HS [facility] Last Admin: 08/13/18 21:48 Dose: 20 mg - Objective Vital Signs: Vital Signs Temperature 97.7 F 08/14/18 02:00 Pulse Rate 81 08/14/18 02:00 Respiratory Rate 20 08/14/18 02:00 Blood Pressure 142/72 08/14/18 02:00 O2 Sat by Pulse Oximetry (%) 96 08/13/18 22:00 Constitutional: Yes: Anxious, Moderate Distress, Thin Eyes: Yes: WNL HENT: Yes: WNL Neck: Yes: WNL Cardiovascular: Yes: Pulse Irregular, S1, S2 Respiratory: Yes: Diminished, On BiPap, SOB Gastrointestinal: Yes: Soft ...Rectal Exam: Yes: Deferred Genitourinary: Yes: Anuria Breast(s): Yes: WNL Musculoskeletal: Yes: Muscle Weakness Extremities: Yes: Cool Edema: No Peripheral Pulses WNL: No Peripheral Pulses: Left Doralis Pedis: 1+, Right Dorsalis Pedis: 1+ Integumentary: Yes: WNL Neurological: Yes: Confusion Psychiatric: Yes: Other (anxiety/depression) Labs: CBC, BMP 08/12/18 05:30 08/12/18 05:30 INR, PTT INR 1.05 (0.83-1.09) 08/12/18 05:30 Fibrinogen 114.0 mg/dL (238-498) L 08/12/18 05:30 Problem List - Problems (1) Elevated troponin I level Assessment/Plan: 0.02-->0.21-->0.19; normal CK EKG: PAF, periods of RVR. Pt likely has demand ischemia from exacerbation of COPD, diastolic CHF, CA, tachycardia. Given pt's advanced lung CA, would recommend continuing conservative management of cardiac condition (she is on metoprolol, diltiazem, statin, ASA, Lovenox) Code(s): R74.8 - ABNORMAL LEVELS OF OTHER SERUM ENZYMES (2) Adenocarcinoma, lung Assessment/Plan: Advanced lung CA, with bone and liver metastases. 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 Poor prognosis; comfort care advised. Code(s): C34.90 - MALIGNANT NEOPLASM OF UNSP PART OF UNSP BRONCHUS OR LUNG (3) Shortness of breath Assessment/Plan: Deteriorating status. On IV steroids,, bronchodilators, O2 per power technician. Code(s): R06.02 - SHORTNESS OF BREATH (4) HTN (hypertension) Assessment/Plan: On metoprolol, diltiazem, and furosemide. Code(s): I10 - ESSENTIAL (PRIMARY) HYPERTENSION (5) Hyperlipidemia Assessment/Plan: on statin Code(s): E78.5 - HYPERLIPIDEMIA, UNSPECIFIED (6) Acute on chronic diastolic CHF (congestive heart failure) Assessment/Plan: On metoprolol, diltiazem, and Furosemide f/u BUn/Cr, electrolytes, daily weight, Is and Os. Code(s): I50.33 - ACUTE ON CHRONIC DIASTOLIC (CONGESTIVE) HEART FAILURE (7) Thrombocytopenia Assessment/Plan: Developed during this admission. Off ASA, anticoagulants; platelets remain low. Code(s): D69.6 - THROMBOCYTOPENIA, UNSPECIFIED (8) Atrial fibrillation Assessment/Plan: On metoprolol and diltiazem HR control. Off anticoagulants and antiplatelets (thrombocytopenia; anemia-->PRBCx). Code(s): I48.91 - UNSPECIFIED ATRIAL FIBRILLATION
[2018-08-14] MEDS: INSULIN SLIDING SCALE (NOVOLOG) 1 VIAL SQ SCH ×4 (06:08→22:34)
[2018-08-14] MEDS: dilTIAZem HCL 30 MG TABLET (FP) PO SCH ×3 (06:08→22:09)
[2018-08-14 06:43] LABS: BASO % 0.5 % (0-2.0); HEMATOCRIT 33.2 % (32.4-45.2); HEMOGLOBIN 10.9 GM/dL (10.7-15.3); LYMPH % 0.5 % (8-40); MCHC 32.8 g/dl (32.0-36.0); MEAN CELL VOLUME 91.6 fl (80-96); MEAN PLT VOLUME 9.9 fl (7.5-11.1); MONO % 1.3 % (3.8-10.2); NEUT % 97.7 % (42.8-82.8); RBC 3.62 M/mm3 (3.60-5.2); RDW 15.7 % (11.6-15.6); WHITE BLOOD COUNT 14.5 K/mm3 (4.0-10.0)
[2018-08-14] MEDS ORDERED: MORPHINE SULFATE 2 MG/ML VIAL IVPUSH PRN (06:53)
--- NOTE | 2018-08-14 06:54 | PN ---
Progress Note, Physician Chief Complaint: pt was uncomfortable all night; anxious and in pain (back, ribs) has lung CA with liver and ribs mets and satge 2 sacral decubs not able to get OOB or sit up ; very weak; occasionally SOB and dry cough on FM 100% and sometimes Bipap PLT 28K dropping no bleeding called heme to reeval pt - Current Medication List Current Medications: Active Medications Acetaminophen (Tylenol -) 650 mg PO Q6H PRN PRN Reason: PAIN Last Admin: 08/12/18 13:00 Dose: 650 mg Albuterol Sulfate (Ventolin 0.083% Nebulizer Soln -) 1 amp NEB Q4H PRN PRN Reason: SHORT OF BREATH/WHEEZING Albuterol/Ipratropium (Duoneb -) 1 amp NEB RQ4H [facility] Last Admin: 08/14/18 03:59 Dose: 1 amp Alprazolam (Xanax -) 0.25 mg PO Q8H PRN PRN Reason: ANXIETY Last Admin: 08/13/18 18:46 Dose: 0.25 mg Bacitracin (Bacitracin -) 1 applic TP BID [facility] Last Admin: 08/13/18 21:47 Dose: 1 applic Budesonide/Formoterol Fumarate (Symbicort 80/4.5mcg -) 2 puff IH BID [facility] Last Admin: 08/13/18 21:56 Dose: 2 puff Diltiazem HCl (Cardizem -) 30 mg PO TID [facility] Last Admin: 08/14/18 06:08 Dose: 30 mg Gabapentin (Neurontin -) 100 mg PO DAILY [facility] Last Admin: 08/13/18 10:09 Dose: 100 mg Guaifenesin (Mucinex -) 600 mg PO BID [facility] Last Admin: 08/13/18 21:48 Dose: 600 mg Guaifenesin (Robitussin -) 10 ml PO Q6H PRN PRN Reason: COUGH Insulin Aspart (Novolog Vial Sliding Scale -) 1 vial SQ ACHS [facility]; Protocol Last Admin: 08/14/18 06:08 Dose: 2 units Lactobacillus Acidophilus (Bacid -) 1 tab PO DAILY [facility] Last Admin: 08/13/18 10:09 Dose: 1 tab Methylprednisolone Sodium Succinate (Solu-Medrol -) 40 mg IVPUSH BID [facility] Last Admin: 08/13/18 21:48 Dose: 40 mg Metoprolol Tartrate (Lopressor Injection -) 5 mg IVPUSH Q4H PRN PRN Reason: HYPERTENSION Last Admin: 07/31/18 17:24 Dose: 5 mg Metoprolol Tartrate (Lopressor -) 25 mg PO BID [facility] Last Admin: 08/13/18 21:48 Dose: 25 mg Multivitamins/Minerals/Vitamin C (Tab-A-Vit -) 1 tab PO DAILY [facility] Last Admin: 08/13/18 10:09 Dose: 1 tab Pantoprazole Sodium (Protonix Iv) 40 mg IVPUSH DAILY [facility] Last Admin: 08/13/18 10:09 Dose: 40 mg Polyethylene Glycol (Miralax (For Daily Use) -) 17 gm PO DAILY [facility] Last Admin: 08/13/18 16:44 Dose: Not Given Potassium Chloride (K-Dur -) 20 meq PO DAILY [facility] Last Admin: 08/13/18 10:09 Dose: 20 meq Ranitidine HCl (Zantac -) 150 mg PO DAILY [facility] Last Admin: 08/13/18 10:09 Dose: 150 mg Rosuvastatin Calcium (Crestor -) 20 mg PO HS [facility] Last Admin: 08/13/18 21:48 Dose: 20 mg - Objective Vital Signs: Vital Signs Temperature 98.4 F 08/14/18 06:00 Pulse Rate 90 08/14/18 06:00 Respiratory Rate 20 08/14/18 06:00 Blood Pressure 137/68 08/14/18 06:00 O2 Sat by Pulse Oximetry (%) 96 08/13/18 22:00 Constitutional: Yes: Anxious Eyes: Yes: Conjunctiva Clear HENT: Yes: Atraumatic Neck: Yes: Supple Cardiovascular: Yes: Regular Rate and Rhythm Respiratory: Yes: Rales Gastrointestinal: Yes: Soft. No: Tenderness Genitourinary: No: Hematuria Musculoskeletal: No: Joint Stiffness, Joint Swelling Extremities: No: Cold, Cool, Cyanosis Edema: No Integumentary: Yes: Bruising. No: Rash, Venous Stasis Changes Neurological: Yes: Alert ...Motor Strength: WNL Psychiatric: Yes: Alert, Agitated Labs: INR, PTT INR 1.05 (0.83-1.09) 08/12/18 05:30 Fibrinogen 114.0 mg/dL (238-498) L 08/12/18 05:30 - ....Imaging Other: Report Reviewed Assessment/Plan The patient is an 82 year old female with a PMH of COPD (on 2L), Stage 3a NSCC ( currently on radiation), CAD s/p [place] (s/p cardiac stent x3), HTN, HLD \admitted with acute on chronic COPD exac and bronchitis, new L sided PNA and metastatic ds lung, liver bones; borderline + troponins h/o ASHD stent, high BNP h/o CHF low EF, s/p hemoptysis and low GIB; new onset rapid AFib, low Platelets and anemia anxiety, pain: will change xanax to TID standing (from prn) and add oxycodone 2.5 mg po tid standing to try to control pain and anxiety d/w palliative care iv steroids, taper nebs, O2 BGM, sq insulin prn PULM, Cardiology f/u HR control; heme ONC f/u miralax prn DVT pfx TEDs and SCDs (on both legs) no AC b/o low PLT falls PFX, gastric, DVT aspiration PFX; turn q1-2h in bed; air mattress d/w staff prognosis poor; pt signed DNR DNI; d/w pt's grand son Ti at bedside this am he agrees with DNR DNI and signed it too aware of consequences; pt;s ; pt has a daughter (who had recent strokes some confusion is in SNF/NH now and with whom I spoke too about the above she is aware and understood and agreed with current management); Ti will d/w NH / SNF to try to bring his mom (pt's ap) in [facility] today or tomorrow to see the pt/ d/w pt and staff t time 45 min
[2018-08-14 07:11] LABS: ALBUMIN 3.1 g/dl (3.4-5.0); ALK PHOS 125 U/L (45-117); ANION GAP 5 MMOL/L (8-16); BILIRUBIN,TOTAL 1.5 mg/dL (0.2-1); BLOOD UREA NITROGEN 66 mg/dL (7-18); CALCIUM 9.2 mg/dL (8.5-10.1); CHLORIDE 106 mmol/L (98-107); CO2 32 mmol/L (21-32); CREATININE 0.8 mg/dL (0.55-1.3); GLUCOSE,RANDOM 163 mg/dL (74-106); POTASSIUM 5.1 mmol/L (3.5-5.1); SGOT/AST 49 U/L (15-37); SGPT/ALT 134 U/L (13-61); SODIUM 143 mmol/L (136-145); TOT PROT 5.2 g/dl (6.4-8.2)
[2018-08-14 07:37] LABS: PLATELET COUNT 26 K/MM3 (134-434)
[2018-08-14] MEDS: ALPRAZolam 0.25 MG TABLET PO PRN (10:00)
--- NOTE | 2018-08-14 10:45 | PN ---
Progress Note, Physician History of Present Illness: pulmonary alert,comfortable less dyspneic on vm. plt count 26 - Current Medication List Current Medications: Active Medications Acetaminophen (Tylenol -) 650 mg PO Q6H PRN PRN Reason: PAIN Last Admin: 08/12/18 13:00 Dose: 650 mg Albuterol Sulfate (Ventolin 0.083% Nebulizer Soln -) 1 amp NEB Q4H PRN PRN Reason: SHORT OF BREATH/WHEEZING Albuterol/Ipratropium (Duoneb -) 1 amp NEB RQ4H [facility] Last Admin: 08/14/18 08:22 Dose: 1 amp Alprazolam (Xanax -) 0.25 mg PO Q8H PRN PRN Reason: ANXIETY Last Admin: 08/13/18 18:46 Dose: 0.25 mg Bacitracin (Bacitracin -) 1 applic TP BID [facility] Last Admin: 08/13/18 21:47 Dose: 1 applic Budesonide/Formoterol Fumarate (Symbicort 80/4.5mcg -) 2 puff IH BID [facility] Last Admin: 08/13/18 21:56 Dose: 2 puff Diltiazem HCl (Cardizem -) 30 mg PO TID [facility] Last Admin: 08/14/18 06:08 Dose: 30 mg Gabapentin (Neurontin -) 100 mg PO DAILY [facility] Last Admin: 08/13/18 10:09 Dose: 100 mg Guaifenesin (Mucinex -) 600 mg PO BID [facility] Last Admin: 08/13/18 21:48 Dose: 600 mg Guaifenesin (Robitussin -) 10 ml PO Q6H PRN PRN Reason: COUGH Sodium Chloride (Normal Saline -) 1,000 mls @ 42 mls/hr IV ASDIR [facility] Insulin Aspart (Novolog Vial Sliding Scale -) 1 vial SQ ACHS [facility]; Protocol Last Admin: 08/14/18 06:08 Dose: 2 units Lactobacillus Acidophilus (Bacid -) 1 tab PO DAILY [facility] Last Admin: 08/13/18 10:09 Dose: 1 tab Methylprednisolone Sodium Succinate (Solu-Medrol -) 40 mg IVPUSH BID [facility] Last Admin: 08/13/18 21:48 Dose: 40 mg Metoprolol Tartrate (Lopressor Injection -) 5 mg IVPUSH Q4H PRN PRN Reason: HYPERTENSION Last Admin: 07/31/18 17:24 Dose: 5 mg Metoprolol Tartrate (Lopressor -) 25 mg PO BID [facility] Last Admin: 08/13/18 21:48 Dose: 25 mg Morphine Sulfate (Morphine Sulfate) 0.5 mg IVPUSH Q6H PRN PRN Reason: PAIN LEVEL 7 - 10 Last Admin: 08/14/18 07:45 Dose: 0.5 mg Multivitamins/Minerals/Vitamin C (Tab-A-Vit -) 1 tab PO DAILY [facility] Last Admin: 08/13/18 10:09 Dose: 1 tab Pantoprazole Sodium (Protonix Iv) 40 mg IVPUSH DAILY [facility] Last Admin: 08/13/18 10:09 Dose: 40 mg Polyethylene Glycol (Miralax (For Daily Use) -) 17 gm PO DAILY [facility] Last Admin: 08/13/18 16:44 Dose: Not Given Potassium Chloride (K-Dur -) 20 meq PO DAILY [facility] Last Admin: 08/13/18 10:09 Dose: 20 meq Ranitidine HCl (Zantac -) 150 mg PO DAILY [facility] Last Admin: 08/13/18 10:09 Dose: 150 mg Rosuvastatin Calcium (Crestor -) 20 mg PO HS [facility] Last Admin: 08/13/18 21:48 Dose: 20 mg - Objective Vital Signs: Vital Signs Temperature 98.4 F 08/14/18 06:00 Pulse Rate 140 H 08/14/18 08:21 Respiratory Rate 20 08/14/18 06:00 Blood Pressure 137/68 08/14/18 06:00 O2 Sat by Pulse Oximetry (%) 88 L 08/14/18 08:21 Constitutional: Yes: Calm, Cachectic Eyes: Yes: WNL HENT: Yes: WNL Neck: Yes: WNL Cardiovascular: Yes: Pulse Irregular, S1, S2 Respiratory: Yes: Diminished Gastrointestinal: Yes: Normal Bowel Sounds, Soft Edema: No Labs: CBC, BMP 08/14/18 05:30 08/14/18 05:30 INR, PTT INR 1.05 (0.83-1.09) 08/12/18 05:30 Fibrinogen 114.0 mg/dL (238-498) L 08/12/18 05:30 Assessment/Plan Problem List - Problems (1) Adenocarcinoma, lung Code(s): C34.90 - MALIGNANT NEOPLASM OF UNSP PART OF UNSP BRONCHUS OR LUNG (2) ASHD (arteriosclerotic heart disease) Code(s): I25.10 - ATHSCL HEART DISEASE OF [place] CORONARY ARTERY W/O ANG PCTRS (3) Anxiety and depression Code(s): F41.9 - ANXIETY DISORDER, UNSPECIFIED; F32.9 - MAJOR DEPRESSIVE DISORDER, SINGLE EPISODE, UNSPECIFIED (4) COPD (chronic obstructive pulmonary disease) Code(s): J44.9 - CHRONIC OBSTRUCTIVE PULMONARY DISEASE, UNSPECIFIED Qualifiers: COPD type: unspecified COPD Qualified Code(s): J44.9 - Chronic obstructive pulmonary disease, unspecified (5) COPD exacerbation Code(s): J44.1 - CHRONIC OBSTRUCTIVE PULMONARY DISEASE W (ACUTE) EXACERBATION (6) Cough Code(s): R05 - COUGH (7) Diastolic CHF Code(s): I50.30 - UNSPECIFIED DIASTOLIC (CONGESTIVE) HEART FAILURE (8) HTN (hypertension) Code(s): I10 - ESSENTIAL (PRIMARY) HYPERTENSION (9) Hyperlipidemia Code(s): E78.5 - HYPERLIPIDEMIA, UNSPECIFIED (10) Hypothyroid Code(s): E03.9 - HYPOTHYROIDISM, UNSPECIFIED (11) Shortness of breath Code(s): R06.02 - SHORTNESS OF BREATH A/P Acute COPD Exacerbation s/p RT session NSCLC - Adenocarcinoma mets to rib/liver LV Diastolic Dysfunction AFIB HTN Hypothyroidism Hyperlipidemia Thrombocytopenia worsening - medrol taper - inhaled bronchodilators - DVT prophylaxis - bipap alt with vm - monitor lytes,na - monitor cbc,plt ct - overall prognosis poor - heme f/u DR CARDOSO
[2018-08-14 11:40] LABS: ANISOCYTOSIS 2+; MACROCYTOSIS 1+; OVALOCYTE 1+; PLATELET ESTIMATE DECREASED
--- NOTE | 2018-08-14 11:41 | PN ---
Progress Note, Physician Chief Complaint: sob History of Present Illness: The patient is an 82 year old white female with a PMH of COPD (on 2L), Stage 3a NSCC lung cancer (currently on radiation), CAD s/p CT (s/p cardiac stent x3), HTN, HLD was BIBEMS for acute onset of shortness of breath. Patient was completing her first radiation treatment today when she suddenly became short of breath. Denies chest pain, lightheadedness, nausea, diaphoresis. Grandson @ bedside assists in history, notes patient has been taking her Albuterol inhaler multiple times daily. Recent medication addition of Symbicort to her daily regimen. History limited as patient tachycardic, tachypneic @ presentation. NKDA Surgical: Cardiac Stent x3, lung biopsy PMD: Dr. Mary Beth Stein Cardiology: Dr. aBh Pulmonology: Dr. Kern/Dr. Velazquez - Current Medication List Current Medications: Active Medications Acetaminophen (Tylenol -) 650 mg PO Q6H PRN PRN Reason: PAIN Last Admin: 08/12/18 13:00 Dose: 650 mg Albuterol Sulfate (Ventolin 0.083% Nebulizer Soln -) 1 amp NEB Q4H PRN PRN Reason: SHORT OF BREATH/WHEEZING Albuterol/Ipratropium (Duoneb -) 1 amp NEB RQ4H [facility] Last Admin: 08/14/18 11:30 Dose: Not Given Alprazolam (Xanax -) 0.25 mg PO TID [facility] Bacitracin (Bacitracin -) 1 applic TP BID [facility] Last Admin: 08/13/18 21:47 Dose: 1 applic Budesonide/Formoterol Fumarate (Symbicort 80/4.5mcg -) 2 puff IH BID [facility] Last Admin: 08/13/18 21:56 Dose: 2 puff Diltiazem HCl (Cardizem -) 30 mg PO TID [facility] Last Admin: 08/14/18 06:08 Dose: 30 mg Gabapentin (Neurontin -) 100 mg PO DAILY [facility] Last Admin: 08/13/18 10:09 Dose: 100 mg Guaifenesin (Mucinex -) 600 mg PO BID [facility] Last Admin: 08/13/18 21:48 Dose: 600 mg Guaifenesin (Robitussin -) 10 ml PO Q6H PRN PRN Reason: COUGH Sodium Chloride (Normal Saline -) 1,000 mls @ 42 mls/hr IV ASDIR [facility] Insulin Aspart (Novolog Vial Sliding Scale -) 1 vial SQ ACHS [facility]; Protocol Last Admin: 08/14/18 06:08 Dose: 2 units Lactobacillus Acidophilus (Bacid -) 1 tab PO DAILY [facility] Last Admin: 08/13/18 10:09 Dose: 1 tab Methylprednisolone Sodium Succinate (Solu-Medrol -) 40 mg IVPUSH BID [facility] Last Admin: 08/13/18 21:48 Dose: 40 mg Metoprolol Tartrate (Lopressor Injection -) 5 mg IVPUSH Q4H PRN PRN Reason: HYPERTENSION Last Admin: 07/31/18 17:24 Dose: 5 mg Metoprolol Tartrate (Lopressor -) 25 mg PO BID [facility] Last Admin: 08/13/18 21:48 Dose: 25 mg Multivitamins/Minerals/Vitamin C (Tab-A-Vit -) 1 tab PO DAILY [facility] Last Admin: 08/13/18 10:09 Dose: 1 tab Oxycodone HCl (Roxicodone -) 2.5 mg PO TID [facility] Pantoprazole Sodium (Protonix Iv) 40 mg IVPUSH DAILY [facility] Last Admin: 08/13/18 10:09 Dose: 40 mg Polyethylene Glycol (Miralax (For Daily Use) -) 17 gm PO DAILY [facility] Last Admin: 08/13/18 16:44 Dose: Not Given Potassium Chloride (K-Dur -) 20 meq PO DAILY [facility] Last Admin: 08/13/18 10:09 Dose: 20 meq Ranitidine HCl (Zantac -) 150 mg PO DAILY [facility] Last Admin: 08/13/18 10:09 Dose: 150 mg Rosuvastatin Calcium (Crestor -) 20 mg PO HS [facility] Last Admin: 08/13/18 21:48 Dose: 20 mg - Objective Vital Signs: Vital Signs Temperature 98.4 F 08/14/18 06:00 Pulse Rate 140 H 08/14/18 08:21 Respiratory Rate 20 08/14/18 06:00 Blood Pressure 137/68 08/14/18 06:00 O2 Sat by Pulse Oximetry (%) 88 L 08/14/18 08:21 Eyes: Yes: WNL, Conjunctiva Clear, EOM Intact HENT: Yes: WNL, Atraumatic, Normocephalic Neck: Yes: WNL, Supple, Trachea Midline Cardiovascular: Yes: WNL, Regular Rate and Rhythm Respiratory: Yes: Diminished, On BiPap Gastrointestinal: Yes: WNL, Normal Bowel Sounds Genitourinary: Yes: WNL Musculoskeletal: Yes: WNL Extremities: Yes: WNL Edema: No Integumentary: Yes: WNL Neurological: Yes: WNL, Alert, Oriented ...Motor Strength: WNL Psychiatric: Yes: WNL Labs: CBC, BMP 08/14/18 05:30 08/14/18 05:30 INR, PTT INR 1.05 (0.83-1.09) 08/12/18 05:30 Fibrinogen 114.0 mg/dL (238-498) L 08/12/18 05:30 Assessment/Plan - Problems (1) Elevated troponin I level Assessment/Plan: 0.02-->0.21-->0.19; normal CK EKG: PAF, periods of RVR. Pt likely has demand ischemia from exacerbation of COPD, diastolic CHF, CA, tachycardia. Given pt's advanced lung CA, would recommend continuing conservative management of cardiac condition (she is on metoprolol, diltiazem, statin, ASA, Lovenox) Code(s): R74.8 - ABNORMAL LEVELS OF OTHER SERUM ENZYMES (2) Adenocarcinoma, lung Assessment/Plan: Advanced lung CA, with bone and liver metastases. 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 Poor prognosis; comfort care advised. Code(s): C34.90 - MALIGNANT NEOPLASM OF UNSP PART OF UNSP BRONCHUS OR LUNG (3) Shortness of breath Assessment/Plan: Deteriorating status. On IV steroids,, bronchodilators, O2 per beer merchant. Code(s): R06.02 - SHORTNESS OF BREATH (4) HTN (hypertension) Assessment/Plan: On metoprolol, diltiazem, and furosemide. Code(s): I10 - ESSENTIAL (PRIMARY) HYPERTENSION (5) Hyperlipidemia Assessment/Plan: on statin Code(s): E78.5 - HYPERLIPIDEMIA, UNSPECIFIED (6) Acute on chronic diastolic CHF (congestive heart failure) Assessment/Plan: On metoprolol, diltiazem, and Furosemide f/u BUn/Cr, electrolytes, daily weight, Is and Os. Code(s): I50.33 - ACUTE ON CHRONIC DIASTOLIC (CONGESTIVE) HEART FAILURE (7) Thrombocytopenia Assessment/Plan: Developed during this admission. Off ASA, anticoagulants; platelets remain low. Code(s): D69.6 - THROMBOCYTOPENIA, UNSPECIFIED (8) Atrial fibrillation Assessment/Plan: On metoprolol and diltiazem HR control. Off anticoagulants and antiplatelets (thrombocytopenia; anemia-->PRBCx). Code(s): I48.91 - UNSPECIFIED ATRIAL FIBRILLATION
[2018-08-14] MEDS: MULTIVITAMINS (DAILY MVI) TABLET (FP) PO SCH ×2 (14:00→14:15)
[2018-08-14] MEDS: METOPROLOL TARTRATE 25 MG TABLET (FP) PO SCH ×2 (14:00→22:10)
[2018-08-14] MEDS: methylPREDNISolone NA SUCC 40 MG/1 ML VIAL IVPUSH SCH ×2 (14:00→22:11)
[2018-08-14] MEDS: GABAPENTIN 100 MG CAPSULE (FP) PO SCH (14:00)
[2018-08-14] MEDS: RANITIDINE HCL 150 MG TABLET (FP) PO SCH (14:13)
[2018-08-14] MEDS: LACTOBACILLUS ACIDOPHILUS 1 TABLET PO SCH (14:13)
[2018-08-14] MEDS: POTASSIUM CHLORIDE TABS 20 MEQ TABLET.ER (FP) PO SCH (14:13)
[2018-08-14] MEDS: guaiFENesin 600 MG TABLET.ER (FP) PO SCH ×2 (14:14→22:10)
[2018-08-14] MEDS: oxyCODONE HCL 5 MG TABLET PO SCH ×2 (14:14→22:10)
[2018-08-14] MEDS: BUDESONIDE/FORMETEROL FUMARATE 80/4.5 mcg INHALER IH SCH ×2 (14:16→22:11)
[2018-08-14] MEDS: ALPRAZolam 0.25 MG TABLET PO SCH ×2 (14:16→22:11)
[2018-08-14] MEDS ORDERED: MORPHINE SULFATE 2 MG/ML VIAL SQ PRN (18:24)
--- NOTE | 2018-08-14 18:26 | PN ---
Progress Note (short form) - Note Progress Note: Patient seen and examined On BIPAP Labored respirations Family at bedside For comfort care . Low dose morphine prn.
[2018-08-14] MEDS: SODIUM CHLORIDE 1,000 ML IV SCH (19:48)
[2018-08-14] MEDS: BACITRACIN 15 GM TUBE TOPICAL OINTMENT TP SCH ×2 (19:48→22:09)
[2018-08-14] MEDS: POLYETHYLENE GLYCOL 3350 119 GM BTL PO SCH (19:49)
[2018-08-14] MEDS: PANTOPRAZOLE SODIUM 40 MG VIAL IVPUSH SCH (19:50)
[2018-08-14] MEDS: ROSUVASTATIN CA 20 MG TABLET (FP) PO SCH (22:10)
[2018-08-15] MEDS: ALBUTEROL SO4 2.5/IPRATROPIUM 0.5 INH SOL 3 ML VIAL.NEB. NEB SCH ×6 (00:05→20:30)
[2018-08-15] MEDS: INSULIN SLIDING SCALE (NOVOLOG) 1 VIAL SQ SCH ×4 (06:53→22:06)
[2018-08-15] MEDS: dilTIAZem HCL 30 MG TABLET (FP) PO SCH ×3 (06:54→22:06)
[2018-08-15] MEDS: ALPRAZolam 0.25 MG TABLET PO SCH (06:54)
[2018-08-15] MEDS: oxyCODONE HCL 5 MG TABLET PO SCH (06:54)
--- NOTE | 2018-08-15 08:51 | PN ---
Progress Note, Physician Chief Complaint: lethargic poorly responsive tachypneic on FM (was on bipap earlier) d/w ONC started on morphine prn poor prognosis d/w pt's daughter Shiloh and grand son Ti they agree with comfort care only, DNR DNI per pt's prior wishes aware of likely outcome of imminent dying - Current Medication List Current Medications: Active Medications Acetaminophen (Tylenol -) 650 mg PO Q6H PRN PRN Reason: PAIN Last Admin: 08/12/18 13:00 Dose: 650 mg Albuterol Sulfate (Ventolin 0.083% Nebulizer Soln -) 1 amp NEB Q4H PRN PRN Reason: SHORT OF BREATH/WHEEZING Albuterol/Ipratropium (Duoneb -) 1 amp NEB RQ4H [facility] Last Admin: 08/15/18 07:41 Dose: 1 amp Alprazolam (Xanax -) 0.25 mg PO TID [facility] Last Admin: 08/15/18 06:54 Dose: Not Given Bacitracin (Bacitracin -) 1 applic TP BID [facility] Last Admin: 08/14/18 22:09 Dose: 1 applic Budesonide/Formoterol Fumarate (Symbicort 80/4.5mcg -) 2 puff IH BID [facility] Last Admin: 08/14/18 22:11 Dose: 2 puff Diltiazem HCl (Cardizem -) 30 mg PO TID [facility] Last Admin: 08/15/18 06:54 Dose: Not Given Gabapentin (Neurontin -) 100 mg PO DAILY [facility] Last Admin: 08/14/18 14:00 Dose: 100 mg Guaifenesin (Mucinex -) 600 mg PO BID [facility] Last Admin: 08/14/18 22:10 Dose: 600 mg Guaifenesin (Robitussin -) 10 ml PO Q6H PRN PRN Reason: COUGH Sodium Chloride (Normal Saline -) 1,000 mls @ 42 mls/hr IV ASDIR [facility] Last Admin: 08/14/18 19:48 Dose: Not Given Insulin Aspart (Novolog Vial Sliding Scale -) 1 vial SQ ACHS [facility]; Protocol Last Admin: 08/15/18 06:53 Dose: Not Given Lactobacillus Acidophilus (Bacid -) 1 tab PO DAILY [facility] Last Admin: 08/14/18 14:13 Dose: 1 tab Methylprednisolone Sodium Succinate (Solu-Medrol -) 40 mg IVPUSH BID [facility] Last Admin: 08/14/18 22:11 Dose: 40 mg Metoprolol Tartrate (Lopressor Injection -) 5 mg IVPUSH Q4H PRN PRN Reason: HYPERTENSION Last Admin: 07/31/18 17:24 Dose: 5 mg Metoprolol Tartrate (Lopressor -) 25 mg PO BID [facility] Last Admin: 08/14/18 22:10 Dose: 25 mg Morphine Sulfate (Morphine Sulfate) 0.5 mg SQ Q6H PRN PRN Reason: PAIN LEVEL 1-5 Multivitamins/Minerals/Vitamin C (Tab-A-Vit -) 1 tab PO DAILY [facility] Last Admin: 08/14/18 14:15 Dose: 1 tab Multivitamins/Minerals/Vitamin C (Tab-A-Vit -) 1 tab PO DAILY [facility] Last Admin: 08/14/18 14:00 Dose: 1 tab Oxycodone HCl (Roxicodone -) 2.5 mg PO TID [facility] Last Admin: 08/15/18 06:54 Dose: Not Given Pantoprazole Sodium (Protonix Iv) 40 mg IVPUSH DAILY [facility] Last Admin: 08/14/18 19:50 Dose: Not Given Polyethylene Glycol (Miralax (For Daily Use) -) 17 gm PO DAILY [facility] Last Admin: 08/14/18 19:49 Dose: Not Given Potassium Chloride (K-Dur -) 20 meq PO DAILY [facility] Last Admin: 08/14/18 14:13 Dose: 20 meq Ranitidine HCl (Zantac -) 150 mg PO DAILY [facility] Last Admin: 08/14/18 14:13 Dose: 150 mg Rosuvastatin Calcium (Crestor -) 20 mg PO [facility] Last Admin: 08/14/18 22:10 Dose: 20 mg - Objective Vital Signs: Vital Signs Temperature 97.4 F L 08/15/18 06:00 Pulse Rate 74 08/15/18 06:00 Respiratory Rate 20 08/15/18 06:00 Blood Pressure 122/56 L 08/15/18 06:00 O2 Sat by Pulse Oximetry (%) 96 08/14/18 21:00 HENT: Yes: Atraumatic Neck: Yes: Supple Cardiovascular: Yes: Regular Rate and Rhythm Respiratory: Yes: Diminished Gastrointestinal: Yes: Soft. No: Tenderness Genitourinary: No: Hematuria Musculoskeletal: No: Joint Swelling Extremities: No: Cold, Cool Edema: No Integumentary: No: Rash Neurological: No: Alert Psychiatric: No: Alert, Agitated Labs: CBC, BMP 08/14/18 05:30 08/14/18 05:30 INR, PTT INR 1.05 (0.83-1.09) 08/12/18 05:30 Fibrinogen 114.0 mg/dL (238-498) L 08/12/18 05:30 - ....Imaging Other: Report Reviewed Assessment/Plan The patient is an 82 year old female with a PMH of COPD (on 2L), Stage 3a NSCC ( currently on radiation), CAD s/p [place] (s/p cardiac stent x3), HTN, HLD \admitted with acute on chronic COPD exac and bronchitis, new L sided PNA and metastatic ds lung, liver bones; borderline + troponins h/o ASHD stent, high BNP h/o CHF low EF, s/p hemoptysis and low GIB; new onset rapid AFib, low Platelets and anemia anxiety, pain: will change xanax to TID standing (from prn) and add oxycodone 2.5 mg po tid standing to try to control pain and anxiety d/w palliative care worsening respiratory status DNR DNI comfort care; morphine prn iv steroids, taper nebs, O2 BGM, sq insulin prn PULM, Cardiology f/u HR control; heme ONC f/u miralax prn DVT pfx TEDs and SCDs (on both legs) no AC b/o low PLT falls PFX, gastric, DVT aspiration PFX; turn q1-2h in bed; air mattress d/w staff prognosis grim; DNR DNI; d/w pt's grand son Ti and daughter Shiloh they agree with DNR DNI per pt's prior wishes; daughter Raphael is currently admitted to SNF but to visit pt today in [place] d/w pt and staff t time 45 min
[2018-08-15 10:05] LABS: BASO % 0.5 % (0-2.0); HEMATOCRIT 31.7 % (32.4-45.2); HEMOGLOBIN 10.5 GM/dL (10.7-15.3); LYMPH % 0.7 % (8-40); MCH 30.3 pg (25.7-33.7); MEAN PLT VOLUME 9.4 fl (7.5-11.1); MONO % 1.2 % (3.8-10.2); NEUT % 97.6 % (42.8-82.8); RBC 3.45 M/mm3 (3.60-5.2); RDW 16.2 % (11.6-15.6); WHITE BLOOD COUNT 12.7 K/mm3 (4.0-10.0)
[2018-08-15 10:11] LABS: PLATELET COUNT 14 K/MM3 (134-434)
[2018-08-15] MEDS: LACTOBACILLUS ACIDOPHILUS 1 TABLET PO SCH (10:21)
[2018-08-15] MEDS: SODIUM CHLORIDE 1,000 ML IV SCH (10:21)
[2018-08-15] MEDS: BACITRACIN 15 GM TUBE TOPICAL OINTMENT TP SCH (10:21)
[2018-08-15] MEDS: POTASSIUM CHLORIDE TABS 20 MEQ TABLET.ER (FP) PO SCH (10:21)
[2018-08-15] MEDS: PANTOPRAZOLE SODIUM 40 MG VIAL IVPUSH SCH (10:22)
[2018-08-15] MEDS: GABAPENTIN 100 MG CAPSULE (FP) PO SCH (10:22)
[2018-08-15] MEDS: POLYETHYLENE GLYCOL 3350 119 GM BTL PO SCH (10:22)
[2018-08-15] MEDS: BUDESONIDE/FORMETEROL FUMARATE 80/4.5 mcg INHALER IH SCH ×2 (10:22→22:10)
[2018-08-15] MEDS: METOPROLOL TARTRATE 25 MG TABLET (FP) PO SCH (10:22)
[2018-08-15] MEDS: methylPREDNISolone NA SUCC 40 MG/1 ML VIAL IVPUSH SCH ×2 (10:22→22:11)
[2018-08-15] MEDS: guaiFENesin 600 MG TABLET.ER (FP) PO SCH ×2 (10:22→22:06)
[2018-08-15] MEDS: MULTIVITAMINS (DAILY MVI) TABLET (FP) PO SCH ×2 (10:23)
[2018-08-15] MEDS: RANITIDINE HCL 150 MG TABLET (FP) PO SCH (10:23)
[2018-08-15 10:40] LABS: ALBUMIN 3.2 g/dl (3.4-5.0); ALK PHOS 117 U/L (45-117); ANION GAP 7 MMOL/L (8-16); BILIRUBIN,TOTAL 1.5 mg/dL (0.2-1); BLOOD UREA NITROGEN 78 mg/dL (7-18); CHLORIDE 112 mmol/L (98-107); CO2 31 mmol/L (21-32); CREATININE 0.8 mg/dL (0.55-1.3); GLUCOSE,RANDOM 133 mg/dL (74-106); POTASSIUM 4.5 mmol/L (3.5-5.1); SGOT/AST 52 U/L (15-37); SGPT/ALT 115 U/L (13-61); SODIUM 151 mmol/L (136-145); TOT PROT 5.1 g/dl (6.4-8.2)
--- NOTE | 2018-08-15 12:13 | PN ---
Progress Note (short form) - Note Progress Note: PULMONARY Sedated on morphine and on NRB. Family at bedside. Vital Signs Period Temp Pulse Resp BP Sys/Armenta Pulse Ox Last 24 Hr 97.4 F-98.0 F 74-137 20-20 98-151/41-74 91-96 Gen: tachypneic at rest Heart: RRR Lung: distant breath sounds Abd: soft, nontender Ext: no edema CBC, BMP 08/15/18 09:40 08/15/18 09:40 Active Medications Acetaminophen (Tylenol -) 650 mg PO Q6H PRN PRN Reason: PAIN Last Admin: 08/12/18 13:00 Dose: 650 mg Albuterol Sulfate (Ventolin 0.083% Nebulizer Soln -) 1 amp NEB Q4H PRN PRN Reason: SHORT OF BREATH/WHEEZING Albuterol/Ipratropium (Duoneb -) 1 amp NEB RQ4H [facility] Last Admin: 08/15/18 11:54 Dose: 1 amp Alprazolam (Xanax -) 0.25 mg PO TID [facility] Last Admin: 08/15/18 06:54 Dose: Not Given Bacitracin (Bacitracin -) 1 applic TP BID [facility] Last Admin: 08/15/18 10:21 Dose: 1 applic Budesonide/Formoterol Fumarate (Symbicort 80/4.5mcg -) 2 puff IH BID [facility] Last Admin: 08/15/18 10:22 Dose: Not Given Diltiazem HCl (Cardizem -) 30 mg PO TID [facility] Last Admin: 08/15/18 06:54 Dose: Not Given Gabapentin (Neurontin -) 100 mg PO DAILY [facility] Last Admin: 08/15/18 10:22 Dose: Not Given Guaifenesin (Mucinex -) 600 mg PO BID [facility] Last Admin: 08/15/18 10:22 Dose: Not Given Guaifenesin (Robitussin -) 10 ml PO Q6H PRN PRN Reason: COUGH Sodium Chloride (Normal Saline -) 1,000 mls @ 42 mls/hr IV ASDIR [facility] Last Admin: 08/15/18 10:21 Dose: 42 mls/hr Insulin Aspart (Novolog Vial Sliding Scale -) 1 vial SQ [facility]; Protocol Last Admin: 02/14/19 12:02 Dose: Not Given Lactobacillus Acidophilus (Bacid -) 1 tab PO DAILY [facility] Last Admin: 08/15/18 10:21 Dose: Not Given Methylprednisolone Sodium Succinate (Solu-Medrol -) 40 mg IVPUSH BID [facility] Last Admin: 08/15/18 10:22 Dose: 40 mg Metoprolol Tartrate (Lopressor Injection -) 5 mg IVPUSH Q4H PRN PRN Reason: HYPERTENSION Last Admin: 07/31/18 17:24 Dose: 5 mg Metoprolol Tartrate (Lopressor -) 25 mg PO BID [facility] Last Admin: 08/15/18 10:22 Dose: Not Given Morphine Sulfate (Morphine Sulfate) 0.5 mg SQ Q6H PRN PRN Reason: PAIN LEVEL 1-5 Last Admin: 08/15/18 10:25 Dose: 0.5 mg Multivitamins/Minerals/Vitamin C (Tab-A-Vit -) 1 tab PO DAILY [facility] Last Admin: 08/15/18 10:23 Dose: Not Given Multivitamins/Minerals/Vitamin C (Tab-A-Vit -) 1 tab PO DAILY [facility] Last Admin: 08/15/18 10:23 Dose: Not Given Oxycodone HCl (Roxicodone -) 2.5 mg PO TID [facility] Last Admin: 08/15/18 06:54 Dose: Not Given Pantoprazole Sodium (Protonix Iv) 40 mg IVPUSH DAILY [facility] Last Admin: 08/15/18 10:22 Dose: 40 mg Polyethylene Glycol (Miralax (For Daily Use) -) 17 gm PO DAILY [facility] Last Admin: 08/15/18 10:22 Dose: Not Given Potassium Chloride (K-Dur -) 20 meq PO DAILY [facility] Last Admin: 08/15/18 10:21 Dose: Not Given Ranitidine HCl (Zantac -) 150 mg PO DAILY [facility] Last Admin: 08/15/18 10:23 Dose: Not Given Rosuvastatin Calcium (Crestor -) 20 mg PO HS [facility] Last Admin: 08/14/18 22:10 Dose: 20 mg A/P Acute COPD Exacerbation s/p RT session NSCLC - Adenocarcinoma LV Diastolic Dysfunction HTN Hypothyroidism Hyperlipidemia - continue medrol at current dose - inhaled bronchodilators as needed - titrate morphine to comfort - discussed with family at bedside
[2018-08-15 12:16] LABS: ANISOCYTOSIS 1+; MACROCYTOSIS 1+
[2018-08-15 12:17] LABS: OVALOCYTE 1+; PLATELET ESTIMATE DECREASED
[2018-08-15] MEDS: METOPROLOL TARTRATE 5 MG/5 ML VIAL IVPUSH PRN (12:55)
[2018-08-15] MEDS ORDERED: SODIUM CHLORIDE 0.45% 1,000 ML IV SCH (13:00)
[2018-08-15] MEDS ORDERED: ALPRAZolam 0.25 MG TABLET PO PRN (13:00)
--- NOTE | 2018-08-15 13:26 | PN ---
Progress Note, Physician Chief Complaint: Pt on Bipap; unresponsive. Pt's daughter and grandson are at bedside. History of Present Illness: The patient is an 82 year old white female with a PMH of COPD (on 2L), Stage 3a NSCC lung cancer (currently on radiation), CAD s/p [place] (s/p cardiac stent x3), HTN, HLD was BIBEMS for acute onset of shortness of breath. Patient was completing her first radiation treatment today when she suddenly became short of breath. Denies chest pain, lightheadedness, nausea, diaphoresis. Grandson @ bedside assists in history, notes patient has been taking her Albuterol inhaler multiple times daily. Recent medication addition of Symbicort to her daily regimen. History limited as patient tachycardic, tachypneic @ presentation. NKDA Surgical: Cardiac Stent x3, lung biopsy PMD: Dr. Mary Beth Stein Cardiology: Dr. Ortiz Pulmonology: Dr. Kern/Dr. Velazquez - Current Medication List Current Medications: Active Medications Acetaminophen (Tylenol -) 650 mg PO Q6H PRN PRN Reason: PAIN Last Admin: 08/12/18 13:00 Dose: 650 mg Albuterol Sulfate (Ventolin 0.083% Nebulizer Soln -) 1 amp NEB Q4H PRN PRN Reason: SHORT OF BREATH/WHEEZING Albuterol/Ipratropium (Duoneb -) 1 amp NEB RQ4H [facility] Last Admin: 08/15/18 11:54 Dose: 1 amp Alprazolam (Xanax -) 0.25 mg PO Q8H PRN PRN Reason: ANXIETY Bacitracin (Bacitracin -) 1 applic TP BID [facility] Last Admin: 08/15/18 10:21 Dose: 1 applic Budesonide/Formoterol Fumarate (Symbicort 80/4.5mcg -) 2 puff IH BID [facility] Last Admin: 08/15/18 10:22 Dose: Not Given Diltiazem HCl (Cardizem -) 30 mg PO TID [facility] Last Admin: 08/15/18 13:09 Dose: Not Given Gabapentin (Neurontin -) 100 mg PO DAILY [facility] Last Admin: 08/15/18 10:22 Dose: Not Given Guaifenesin (Mucinex -) 600 mg PO BID [facility] Last Admin: 08/15/18 10:22 Dose: Not Given Guaifenesin (Robitussin -) 10 ml PO Q6H PRN PRN Reason: COUGH Sodium Chloride (1/2 Normal Saline) 1,000 mls @ 75 mls/hr IV ASDIR [facility] Insulin Aspart (Novolog Vial Sliding Scale -) 1 vial SQ ACHS [facility]; Protocol Last Admin: 08/15/18 12:02 Dose: Not Given Lactobacillus Acidophilus (Bacid -) 1 tab PO DAILY [facility] Last Admin: 08/15/18 10:21 Dose: Not Given Methylprednisolone Sodium Succinate (Solu-Medrol -) 40 mg IVPUSH BID [facility] Last Admin: 08/15/18 10:22 Dose: 40 mg Metoprolol Tartrate (Lopressor Injection -) 5 mg IVPUSH Q4H [facility] Morphine Sulfate (Morphine Sulfate) 0.5 mg IVPB Q6H PRN PRN Reason: PAIN LEVEL 7 - 10 Multivitamins/Minerals/Vitamin C (Tab-A-Vit -) 1 tab PO DAILY [facility] Last Admin: 08/15/18 10:23 Dose: Not Given Multivitamins/Minerals/Vitamin C (Tab-A-Vit -) 1 tab PO DAILY [facility] Last Admin: 08/15/18 10:23 Dose: Not Given Pantoprazole Sodium (Protonix Iv) 40 mg IVPUSH DAILY [facility] Last Admin: 08/15/18 10:22 Dose: 40 mg Polyethylene Glycol (Miralax (For Daily Use) -) 17 gm PO DAILY [facility] Last Admin: 08/15/18 10:22 Dose: Not Given Potassium Chloride (K-Dur -) 20 meq PO DAILY [facility] Last Admin: 08/15/18 10:21 Dose: Not Given Ranitidine HCl (Zantac -) 150 mg PO DAILY [facility] Last Admin: 08/15/18 10:23 Dose: Not Given Rosuvastatin Calcium (Crestor -) 20 mg PO HS [facility] Last Admin: 08/14/18 22:10 Dose: 20 mg - Objective Vital Signs: Vital Signs Temperature 97.4 F L 08/15/18 06:00 Pulse Rate 188 H 08/15/18 12:55 Respiratory Rate 20 08/15/18 06:00 Blood Pressure 130/56 L 08/15/18 12:55 O2 Sat by Pulse Oximetry (%) 96 08/14/18 21:00 Constitutional: Yes: Cachectic Eyes: Yes: WNL HENT: Yes: Other Neck: Yes: Decreased ROM Cardiovascular: Yes: S1 (varies in intensity), S2 Respiratory: Yes: Diminished, Tachypnea Gastrointestinal: Yes: Soft Genitourinary: No: Anuria Musculoskeletal: Yes: Muscle Weakness Extremities: Yes: Cool Edema: No Peripheral Pulses WNL: No Peripheral Pulses: Left Doralis Pedis: 1+, Right Dorsalis Pedis: 1+ Integumentary: Yes: WNL Neurological: Yes: Unresponsive Psychiatric: Yes: Other Labs: CBC, BMP 08/15/18 09:40 08/15/18 09:40 INR, PTT INR 1.05 (0.83-1.09) 08/12/18 05:30 Fibrinogen 114.0 mg/dL (238-498) L 08/12/18 05:30 Abnormal Lab Results 08/15/18 09:40 Sodium 151 H Chloride 112 H Anion Gap 7 L BUN 78 H Random Glucose 133 H Magnesium 3.1 H Total Bilirubin 1.5 H AST 52 H ALT 115 H Total Protein 5.1 L Albumin 3.2 L Problem List - Problems (1) Elevated troponin I level Assessment/Plan: 0.02-->0.21-->0.19; normal CK EKG: PAF, periods of RVR. Pt likely has demand ischemia from exacerbation of COPD, diastolic CHF, CA, tachycardia. Given pt's advanced lung CA, would recommend continuing conservative management of cardiac condition (she is on metoprolol, diltiazem, statin, ASA, Lovenox) Code(s): R74.8 - ABNORMAL LEVELS OF OTHER SERUM ENZYMES (2) Adenocarcinoma, lung Assessment/Plan: Advanced lung CA, with bone and liver metastases. 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 Poor prognosis; comfort care. Code(s): C34.90 - MALIGNANT NEOPLASM OF UNSP PART OF UNSP BRONCHUS OR LUNG (3) Shortness of breath Assessment/Plan: Deteriorating status. On IV steroids,, bronchodilators, O2 per computer technology trainer. Code(s): R06.02 - SHORTNESS OF BREATH (4) HTN (hypertension) Assessment/Plan: On metoprolol, diltiazem, and furosemide. Code(s): I10 - ESSENTIAL (PRIMARY) HYPERTENSION (5) Hyperlipidemia Assessment/Plan: on statin Code(s): E78.5 - HYPERLIPIDEMIA, UNSPECIFIED (6) Acute on chronic diastolic CHF (congestive heart failure) Assessment/Plan: On metoprolol, diltiazem, and Furosemide f/u BUn/Cr, electrolytes, daily weight, Is and Os. Code(s): I50.33 - ACUTE ON CHRONIC DIASTOLIC (CONGESTIVE) HEART FAILURE (7) Thrombocytopenia Assessment/Plan: Developed during this admission. Off ASA, anticoagulants; platelets remain low. Code(s): D69.6 - THROMBOCYTOPENIA, UNSPECIFIED (8) Atrial fibrillation Assessment/Plan: Periods of AF with RVR. No longer able to take PO medications. Will discontinue PO metoprolol, and stasrt IV metoprolol 5 mg q 4 h aroiund the clock. If she becomes hypotensive, will give digoxin. K+ WNL; f/u Mg, and keep 2.0-2.4 Code(s): I48.91 - UNSPECIFIED ATRIAL FIBRILLATION
[2018-08-15 14:05] LABS: MAGNESIUM 3.1 mg/dL (1.8-2.4)
[2018-08-15] MEDS: METOPROLOL TARTRATE 5 MG/5 ML VIAL IVPUSH SCH ×4 (15:13→22:04)
[2018-08-15] MEDS: MORPHINE SULFATE 2 MG/ML VIAL IVPB PRN ×2 (15:14→22:02)
--- NOTE | 2018-08-15 15:20 | PN ---
Progress Note (short form) - Note Progress Note: Pt is comfort care. On Morphine gtt. would avoid further blood draws Will sign off case at this time Thank you Stan Harrison DO
[2018-08-15] MEDS ORDERED: METOPROLOL TARTRATE 5 MG/5 ML VIAL IVPUSH PRN (17:20)
[2018-08-15] MEDS: ROSUVASTATIN CA 20 MG TABLET (FP) PO SCH (22:06)
[2018-08-16] MEDS: ALBUTEROL SO4 2.5/IPRATROPIUM 0.5 INH SOL 3 ML VIAL.NEB. NEB SCH ×2 (01:02→04:20)
[2018-08-16 04:10] VITALS: TEMP 98.2
[2018-08-16] MEDS: METOPROLOL TARTRATE 5 MG/5 ML VIAL IVPUSH SCH ×2 (04:57→06:18)
[2018-08-16 05:39] VITALS: BP 134/47; PULSE 88
[2018-08-16] MEDS: dilTIAZem HCL 30 MG TABLET (FP) PO SCH (05:41)
--- NOTE | 2018-08-16 07:19 | HOSP ---
Subjective - Review of Symptoms Events since last encounter: called by RN at 545am to pronounce pt Physical Examination Vital Signs: Vital Signs Temperature 98.2 F 08/16/18 01:00 Pulse Rate 88 08/16/18 05:00 Respiratory Rate 20 08/15/18 17:00 Blood Pressure 134/47 L 08/16/18 05:00 O2 Sat by Pulse Oximetry (%) 84 L 08/15/18 21:00 Labs: CBC, BMP 08/15/18 09:40 08/15/18 09:40 Hospitalist Encounter Assessment: pt examined. No verbal or motor response to stimulation. No heart or lung sounds on auscultation. Pupils fixed and dilated. Pt pronounced at 545am. RN to notify family and PCP.
--- NOTE | 2018-08-16 08:17 | DS ---
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 seen by pulmonary, oncology, cardiology; Hospital Course: treated with IV antibiotics, iv steroids, nebs, O2 (FM, Bipap); but despite treatment pt did not improve; pt and grandson signed DNR DNI, pt got progressively worse and sec to PNA and respiratory failure Condition: Fair - Instructions Disposition: - Home Medications Comprehensive Discharge Medication List: Ambulatory Orders Metoprolol Tartrate 25 mg PO BID 07/18/16 Rosuvastatin Calcium [Crestor] 20 mg PO HS 07/18/16 Acetaminophen [Tylenol .Regular Strength -] 650 mg PO Q6H PRN tablet 05/01/18 Albuterol 0.083% Nebulizer [place] [Ventolin 0.083% Nebulizer Soln -] 1 amp NEB Q4H PRN #90 amp 05/01/18 Aspirin [ASA -] 81 mg PO DAILY #90 tab 05/01/18 Clopidogrel Bisulfate [Plavix -] 75 mg PO DAILY #90 tab 05/01/18 Tiotropium [place] [Spiriva Respimat] 2 puff IH DAILY #90 inhaler 05/01/18 Budesonide/Formeterol Fumarate [SYMBICORT 80/4.5mcg -] 2 inh PO BID 07/08/18 Furosemide [Lasix -] 20 mg PO ASDIR 07/08/18
== END 2018-08-16 05:45 | disposition expired | DRG 180 ==
LOC: JER 15:58 → JERBED 18:36 → J8W 21:14 → J4W 07-28 09:04
PROVIDERS: ADMIT Internal Medicine; ATTEND Internal Medicine
PROC: 0FB13ZX Excision of Right Lobe Liver, Percutaneous Approach, Diagnostic (ICD-10-PCS; principal; 2018-07-22)
PROC: 0JH63WZ Insertion of Totally Implantable Vascular Access Device into Chest Subcutaneous Tissue and Fascia, Percutaneous Approach (ICD-10-PCS; 2018-07-26)
PROC: 05HN33Z Insertion of Infusion Device into Left Internal Jugular Vein, Percutaneous Approach (ICD-10-PCS; 2018-07-26)
PROC: B514ZZA Fluoroscopy of Left Jugular Veins, Guidance (ICD-10-PCS; 2018-07-26)
PROC: 5A09357 Assistance with Respiratory Ventilation, Less than 24 Consecutive Hours, Continuous Positive Airway Pressure (ICD-10-PCS; 2018-07-28)
PROC: 30233N1 Transfusion of Nonautologous Red Blood Cells into Peripheral Vein, Percutaneous Approach (ICD-10-PCS; 2018-08-04)
DX: C34.90 Malignant neoplasm of unspecified part of unspecified bronchus or lung (principal); I50.33 Acute on chronic diastolic (congestive) heart failure; E43 Unspecified severe protein-calorie malnutrition; J18.9 Pneumonia, unspecified organism; J96.01 Acute respiratory failure with hypoxia; J44.1 Chronic obstructive pulmonary disease with (acute) exacerbation; J98.11 Atelectasis; Z68.1 Body mass index [BMI] 19.9 or less, adult; C78.7 Secondary malignant neoplasm of liver and intrahepatic bile duct; C79.51 Secondary malignant neoplasm of bone; R64 Cachexia; J84.9 Interstitial pulmonary disease, unspecified; I24.8 Other forms of acute ischemic heart disease; E87.0 Hyperosmolality and hypernatremia; K62.5 Hemorrhage of anus and rectum; I25.10 Atherosclerotic heart disease of native coronary artery without angina pectoris; I25.2 Old myocardial infarction; I10 Essential (primary) hypertension; E78.5 Hyperlipidemia, unspecified; E03.9 Hypothyroidism, unspecified; F41.8 Other specified anxiety disorders; R16.0 Hepatomegaly, not elsewhere classified; R74.8 Abnormal levels of other serum enzymes; I11.0 Hypertensive heart disease with heart failure; D72.829 Elevated white blood cell count, unspecified; R31.0 Gross hematuria; R00.0 Tachycardia, unspecified; D69.6 Thrombocytopenia, unspecified; R07.89 Other chest pain; F41.9 Anxiety disorder, unspecified; E86.0 Dehydration; K59.00 Constipation, unspecified; E87.6 Hypokalemia; I48.91 Unspecified atrial fibrillation; J20.9 Acute bronchitis, unspecified; L89.152 Pressure ulcer of sacral region, stage 2; Z99.81 Dependence on supplemental oxygen; Z87.891 Personal history of nicotine dependence; Z95.5 Presence of coronary angioplasty implant and graft; Z87.442 Personal history of urinary calculi; Z66 Do not resuscitate
CPT/HCPCS: 36415; 36430; 36561; 36600; 71045-TC-FY; 71046-TC-FY; 71250-TC; 71275-TC; 74176-TC; 76705-TC; 76775-TC; 76856-TC; 76942-TC; 77001-TC-FY; 80048; 80053; 80076; 81003; 81015; 82105; 82542; 82550; 82728; 82803; 82947; 82962; 83516; 83540; 83550; 83605; 83735; 83880; 84100; 84484; 85025; 85384; 85610; 85730; 86022; 86038; 86704; 86706; 86708; 86803; 86850; 86900; 86901; 86922; 87040; 87086; 87340; 87804; 87899; 88305-TC; 88341-TC; 93005; 93010; 93306-TC; 94640; 94660; 97116-GP; 97161-GP; 99285-25; C1788; J1644; J7030; P9038; P9058